=== PATIENT | male | born 1935 | race Caucasian/White ===

== ENCOUNTER → 2016-10-05 | Outpatient (CLI) | payer BC ==
[~2016-10-05] MED LIST: ACET1TAB84 PO; ALLO300T2 PO; ASPI-427 PO; ASPI325T39 PO; ASPIRIN 325 MG PO; BIMA0.01 OPB; CLB/200 PO; DXY100 PO; EZET10TA63 PO; GEMF600T3 PO; GLIP2.5T11 PO; GLIP5TAB11 PO; HYDR-5688 PO; INDA1TAB3 PO; LATA0.009 OPB; LOZOL PO; MISCCAP80 PO; MORPHINE INT SPINAL; PANT1TAB48 PO; POTASSIUM OTC PO; PREG1CAP70 PO; SPIR50TA2 PO; SUCR1TAB PO; SUCR1TAB29 PO; TEST5GEL TOP; ZOLP5TAB PO; pain pump INT SPINAL
[2016-10-05 09:34] LABS: HEMATOCRIT 45.4 % (42-52); MEAN CELL VOLUME 97.8 fL (80-100); MEAN CORPUSCULAR HEMOGLOBIN 32.8 pg (25-34); MEAN CORPUSCULAR HGB CONC 33.5 g/dl (32-36); PLATELET COUNT 151 K/uL (130-400); RED BLOOD COUNT 4.64 M/uL (4.7-6.1); WHITE BLOOD COUNT 11.81 K/uL (4.8-10.8)
[2016-10-05 09:51] LABS: BLOOD UREA NITROGEN 30 mg/dl (7-18); BUN/CREATININE RATIO 23.1 (10-20); CALCIUM 8.6 mg/dl (8.5-10.1); CARBON DIOXIDE 25 mmol/L (21-32); CHLORIDE 109 mmol/L (98-107); GLUCOSE 156 mg/dl (70-99); SODIUM 143 mmol/L (136-145)
[2016-10-05 10:05] LABS: ESTIMATED AVERAGE GLUCOSE 154 mg/dl; HA1C FLAG Normal (Normal)
[2016-10-05 10:52] LABS: BASO % 0.9 %; BASO ABS # 0.11 K/uL (0-0.2); COMPLETE YES; EOS % 4.5 %; IG% 0.5 %; LYMPH % 54.3 %; LYMPH ABS # 6.41 K/uL (1.2-3.4); NEUT % 35.8 %; SMUDGE CELLS PRESENT
== END | disposition home or self-care (01) ==
LOC: C.LAB1850 08:34
PROVIDERS: ATTEND Internal Medicine
DX: E11.9 Type 2 diabetes mellitus without complications (principal)

== ENCOUNTER → 2016-11-12 | Outpatient (CLI) | payer BC | END | disposition home or self-care (01) | LOC: C.RDSM 16:26 | PROVIDERS: ATTEND Physical Medicine & Rehabilitation Sports Medicine | DX: M25.561 Pain in right knee (principal) ==

== ENCOUNTER → 2016-11-16 | Outpatient (CLI) | payer BC ==
[~2016-11-16] MED LIST changes: -BIMA0.01 OPB
--- NOTE | 2016-11-16 13:57 | DIAGNOSTIC IMAGING REPORT ---
CHEST 2 VIEWS ROUTINE CLINICAL HISTORY: R06.02 Shortness of [id number] dyspnea COMPARISON STUDY: 05/04/2016 FINDINGS: Mild cardia megaly status post median sternotomy. Diaphragms smooth. Lungs are clear. IMPRESSION: No acute process. Electronically signed by: Trace Mares M.D. 11/16/2016 1:56 PM Dictated Date/Time: 11/16/2016 1:56 PM
== END | disposition home or self-care (01) ==
LOC: C.RAD1850 13:16
PROVIDERS: ATTEND Internal Medicine
DX: R06.02 Shortness of breath (principal)

== ENCOUNTER → 2016-12-10 | Outpatient (CLI) | payer BC ==
[~2016-12-10] MED LIST changes: -ASPI325T39 PO
[2016-12-10 09:33] LABS: MEAN CELL VOLUME 101.6 fL (80-100); MEAN CORPUSCULAR HEMOGLOBIN 34.2 pg (25-34); MEAN CORPUSCULAR HGB CONC 33.6 g/dl (32-36); MEAN PLATELET VOLUME 12.2 fL (7.4-10.4); PLATELET COUNT 141 K/uL (130-400); RED BLOOD COUNT 4.33 M/uL (4.7-6.1); WHITE BLOOD COUNT 11.68 K/uL (4.8-10.8)
[2016-12-10 11:36] LABS: EOSINOPHIL % 5.2 %; LYMPH ABS # 4.58 K/uL (1.2-3.4); LYMPHOCYTE % 39.2 %; SMUDGE CELLS PRESENT; VARIANT LYM ABS # 2.44 K/uL; VARIANT LYMPHOCYTE % 20.9 %
[2016-12-10 13:46] LABS: COMPLETE YES
== END | disposition home or self-care (01) ==
LOC: C.LAB1850 08:30
PROVIDERS: ATTEND Internal Medicine Endocrinology, Diabetes & Metabolism
DX: Z00.00 Encounter for general adult medical examination without abnormal findings (principal); I10 Essential (primary) hypertension; E29.1 Testicular hypofunction; E11.9 Type 2 diabetes mellitus without complications

== ENCOUNTER → 2016-12-20 | Outpatient (CLI) | payer BC ==
[~2016-12-20] MED LIST changes: -LOZOL PO
[2016-12-20 09:45] LABS: HEMATOCRIT 43.9 % (42-52); MEAN CELL VOLUME 99.1 fL (80-100); MEAN CORPUSCULAR HEMOGLOBIN 33.4 pg (25-34); MEAN CORPUSCULAR HGB CONC 33.7 g/dl (32-36); MEAN PLATELET VOLUME 11.8 fL (7.4-10.4); PLATELET COUNT 155 K/uL (130-400); RED BLOOD COUNT 4.43 M/uL (4.7-6.1); WHITE BLOOD COUNT 11.46 K/uL (4.8-10.8)
[2016-12-20 09:54] LABS: ALT/SGPT 31 U/L (12-78); AST/SGOT 21 U/L (15-37); BLOOD UREA NITROGEN 24 mg/dl (7-18); BUN/CREATININE RATIO 21.5 (10-20); CALCIUM 8.7 mg/dl (8.5-10.1); CARBON DIOXIDE 24 mmol/L (21-32); CHLORIDE 107 mmol/L (98-107); CHOLESTEROL 160 mg/dl (0-200); GLUCOSE 144 mg/dl (70-99); SODIUM 139 mmol/L (136-145); URIC ACID 4.4 mg/dl (2.6-7.2)
[2016-12-20 10:04] LABS: HDL CHOLESTEROL 32 mg/dl; LDL CHOLESTEROL CALCULATED 87 mg/dl; TRIGLYCERIDES 206 mg/dl (0-150); VERY LOW DENSITY LIPOPROT CALC 41 mg/dl
[2016-12-20 13:46] LABS: COMPLETE YES; SMUDGE CELLS PRESENT
[2016-12-20 13:50] LABS: ESTIMATED AVERAGE GLUCOSE 169 mg/dl; HA1C FLAG Normal (Normal)
== END | disposition home or self-care (01) ==
LOC: C.LAB1850 08:14
PROVIDERS: ATTEND Internal Medicine
DX: E11.9 Type 2 diabetes mellitus without complications (principal)

== ENCOUNTER 2017-01-04 06:08 | Emergency (ER) | payer BC ==
[~2017-01-04] VITALS: Ht 165.1 cm; Wt 108.0 kg
[~2017-01-04 06:08] MED LIST changes: -ACET1TAB84 PO; -ASPI-427 PO; -DXY100 PO; -GLIP2.5T11 PO; -HYDR-5688 PO; -MISCCAP80 PO; -POTASSIUM OTC PO; -SUCR1TAB PO; -SUCR1TAB29 PO; -pain pump INT SPINAL
[2017-01-04 06:10] VITALS: TEMP 36.8; Ht 165.1 cm; Wt 108.0 kg
[2017-01-04 06:26] VITALS: O2SAT 94
[2017-01-04 06:37] LABS: HEMATOCRIT 45.4 % (42-52); MEAN CORPUSCULAR HEMOGLOBIN 33.3 pg (25-34); MEAN CORPUSCULAR HGB CONC 33.3 g/dl (32-36); MEAN PLATELET VOLUME 11.4 fL (7.4-10.4); PLATELET COUNT 156 K/uL (130-400); RED BLOOD COUNT 4.54 M/uL (4.7-6.1); WHITE BLOOD COUNT 11.34 K/uL (4.8-10.8)
[2017-01-04] MEDS ORDERED: ASPI-427 PO (06:49)
[2017-01-04] MEDS ORDERED: HYDR-5688 PO (06:51)
[2017-01-04 06:59] LABS: BUN/CREATININE RATIO 18.1 (10-20); CALCIUM 8.5 mg/dl (8.5-10.1); CREATININE 1.2 mg/dl (0.60-1.40)
[2017-01-04] MEDS ORDERED: pain pump INT SPINAL (07:02)
[2017-01-04 07:04] LABS: CKMB/CK RATIO 1.3 (0-3.0)
--- NOTE | 2017-01-04 07:38 | DIAGNOSTIC IMAGING REPORT ---
CHEST ONE VIEW PORTABLE HISTORY: Short of breath. COMPARISON: Chest 11/16/2016. FINDINGS: Elevation the right hemidiaphragm. Poststernotomy changes. The heart is mildly enlarged. No pleural effusions. No pneumothorax. The lungs are clear. IMPRESSION: 1. Mild enlargement of the cardiac silhouette. 2. Elevation of the right hemidiaphragm. Electronically signed by: Patricio Arredondo M.D. 01/04/2017 7:36 AM Dictated Date/Time: 01/04/2017 7:35 AM
[2017-01-04 07:42] LABS: BASO % 0.8 %; BASO ABS # 0.09 K/uL (0-0.2); COMPLETE YES; IG% 0.6 %; LYMPH % 48.6 %; LYMPH ABS # 5.51 K/uL (1.2-3.4); MONO % 4.9 %; NEUT % 41.1 %; SMUDGE CELLS PRESENT
--- NOTE | 2017-01-04 07:50 | DIAGNOSTIC IMAGING REPORT ---
CHEST CT WITHOUT CONTRAST CT DOSE: 700.55 mGycm HISTORY: Short of breath. TECHNIQUE: Multiaxial CT images of the chest were performed without contrast. COMPARISON: Chest CT 10/21/2015. FINDINGS: The central airways are patent. No pleural effusions. No pneumothorax. The left lung is clear. Groundglass densities within the right lower lobe posteriorly favor mild dependent change/atelectasis. Otherwise, no focal lung consolidations to suggest pneumonia. Poststernotomy changes. There is an intrathecal catheter terminating at the T11 level. No acute fractures within the visualized osseous structures. Bilateral renal hypodense lesions are only partially visualized on this study. These are incompletely characterized on this noncontrast study but favor cysts. There is a 1 cm gallstone. Hepatic steatosis. The spleen and adrenal glands are unremarkable. No mediastinal or hilar lymphadenopathy. Mild bilateral gynecomastia. IMPRESSION: 1. Groundglass densities within the right lower lobe posteriorly favor mild dependent change/atelectasis. Otherwise, no focal lung consolidations to suggest pneumonia. 2. Cholelithiasis. Electronically signed by: Patricio Arredondo M.D. 01/04/2017 7:48 AM Dictated Date/Time: 01/04/2017 7:42 AM
--- NOTE | 2017-01-04 08:10 | DIAGNOSTIC IMAGING REPORT ---
BILATERAL LOWER EXTREMITY VENOUS DOPPLER HISTORY: lower leg pain COMPARISON STUDY: None. FINDINGS: There is normal compressibility, flow, and augmentation within the bilateral lower extremity deep venous systems. IMPRESSION: No DVT within the right or left lower extremity. Electronically signed by: Patricio Arredondo M.D. 01/04/2017 8:08 AM Dictated Date/Time: 01/04/2017 8:07 AM
[2017-01-04 11:45] LABS: MANUAL MICROSCOPIC REQUIRED? NO; REVIEW REQ? NO; URINE APPEARANCE CLEAR (CLEAR); URINE BILIRUBIN NEG (NEG); URINE COLOR YELLOW; URINE NITRITE NEG (NEG); URINE SPECIFIC GRAVITY 1.014 (1.000-1.030); UROBILINOGEN NEG (NEG); ZZUR CULT IF INDIC CLEAN CATCH NO
--- NOTE | 2017-01-04 12:35 | DIAGNOSTIC IMAGING REPORT ---
NUCLEAR MEDICINE VENTILATION/PERFUSION SCAN CLINICAL HISTORY: Chest pain. Dyspnea. COMPARISON: None TECHNIQUE: For the ventilation portion of this exam, 32 mCi of DTPA was inhaled at 7:30 AM. Immediately following inhalation, imaging of the chest was carried out in the anterior, posterior, left lateral, right lateral, LPO, RPO, [place] and [place] projections. For the perfusion portion of exam, 5 mCi of technetium 99m MAA was injected IV at 7:35 AM. Immediately following injection, imaging of the chest was carried out in the same projections. FINDINGS: Ventilation/perfusion images show generally uniform activity characteristics on both ventilation and perfusion components of the study. No significant ventilation/perfusion minutes IMPRESSION: Normal study Electronically signed by: Trace Mares M.D. 01/04/2017 12:33 PM Dictated Date/Time: 01/04/2017 12:31 PM
[2017-01-04 14:36] VITALS: BP 122/80; PULSE 67; O2SAT 93
--- NOTE | 2017-01-04 16:11 | EMERGENCY ROOM VISIT NOTE ---
History Report prepared by Sumanth: Tao Arteaga Under the Supervision of: Dr. Edwin Vaughan M.D. First contact with patient: 06:36 Chief Complaint: RESPIRATORY PROBLEMS Stated Complaint: HARD TO BREATH Nursing Triage Summary: Pt awoke at 0230 and pt noticed he had to take more frequent deep breaths and stayed awake until 0500 due to the change in breathing. Pt's decided to bring pt to ED. Per pt's , this has been happening for 6 months and they have been following up closely with PCP. reports in the last six weeks they have done numerous tests including chest x-ray, holter monitor, blood work, and ambulatory pulse ox. Pt placed on lasix for 10 days and reports "that didn't work out so well. He got very weak". Pt also had episodes of hypotension , which pt's PCP adjusted blood pressure medications and hypotension has since subsided. Per , nothing has been found to be causing these periods of SOB. Hx of pain pump that deposits morphine and buvivicain, and clonidine directly onto spine. Pt has been working with pain management clinic closely for years due to chronic back pain. History of Present Illness The patient is an 81 year old male who presents to the Emergency Room with complaints of worsening shortness of breath starting around 0300 this morning. The patient states that he has been having shortness of breath for the past six months, however this morning it was worse than usual. The patient, however, states that while he is laying here he feels fine. He states that he has a history of bypass surgery, and he has some back issues which hinder him from having a stress test. He states that he was given a breathing test about six weeks ago, and he got a 91 on his oxygen and he was able to walk with a walker for six minutes. The patient states that his legs hurt due to neuropathy, and he has difficulty walking. He denies taking any blood thinners other than aspirin, and he takes Celebrex. The patient denies any recent long travels. Pt denies LOC, headache, fevers, chills, diaphoresis, visual changes, neck pain, chest pain, nausea, vomiting, abdominal pain, back pain, melena, hematochezia, urinary symptoms, numbness, weakness, lymphadenopathy, rash, or other complaints. Source of History: patient Onset: 0300 this morning Position: other (global) Quality: other (shortness of breath) Timing: worsening Note: Associated symptoms: Leg pain Review of Systems See HPI for pertinent positives and negatives. A total of ten systems were reviewed and were otherwise negative. Past Medical & Surgical Medical Problems: (1) CAD (coronary artery disease) (2) Hyperlipidemia (3) Hypertension (4) Itraspinal trial for post laminectomy syndrome (5) Osteoarthritis Family History No significant family history Social History Smoking Status: Never Smoker Drug Use: none Marital Status: Housing Status: lives with significant other Occupation Status: employed Current/Historical Medications Scheduled Allopurinol (Zyloprim), 300 MG PO DAILY Aspirin (Ecotrin Regular Strength), 325 MG PO DAILY Celecoxib (CeleBREX), 200 MG PO QAM Ezetimibe (Zetia), 10 MG PO QPM Gemfibrozil (Lopid), 600 MG PO DAILY Glipizide (Glucotrol), 0.5 TAB PO DAILY Indapamide (Lozol), 2.5 MG PO QAM Latanoprost (Xalatan 0.005% Oph [place]), 1 DROPS OP HS Pantoprazole (Protonix), 40 MG PO NOON Pregabalin (Lyrica), 150 MG PO TID Spironolactone (Aldactone), 50 MG PO QAM Testosterone (Androgel Pump), 40.5 MG TOP DAILY [pain pump], INT SPINAL CONTINOUS Scheduled PRN Hydrocodone/Acetaminophen 5MG/325MG (Whick 5MG/325MG), 1 TABLET PO UD PRN for Pain Zolpidem Tartrate (Ambien), 5 MG PO HS PRN for Sleep Allergies Coded Allergies: Hydrochlorothiazide (Verified Allergy, Severe, Hives, 01/04/17) Iodinated Diagnostic Agents (Verified Allergy, Severe, Convulsions, ) Adhesives (Verified Allergy, Intermediate, RASH;PULLS SKIN OFF, 01/04/17) Nifedipine (Verified Allergy, Intermediate, Sick to stomach, 01/04/17) Levofloxacin (Verified Allergy, Mild, HIVES, 01/04/17) itching NSAIDs (Verified Allergy, Mild, Elevated BP, 01/04/17) Cephalosporins (Verified Adverse Reaction, Intermediate, nausea after repeated dose, 01/04/17) Atorvastatin (Verified Adverse Reaction, Unknown, 01/04/17) Physical Exam Vital Signs Date Time Temp Pulse Resp B/P Pulse Ox O2 Delivery O2 Flow Rate FiO2 01/04/17 14:36 67 16 122/80 93 01/04/17 13:27 72 18 126/81 93 Room Air 01/04/17 11:08 83 20 135/78 92 Room Air 01/04/17 09:17 94 18 159/91 94 Room Air 01/04/17 07:18 66 18 143/85 95 Room Air 01/04/17 06:27 93 Room Air 01/04/17 06:27 82 01/04/17 06:26 94 Room Air 01/04/17 06:10 36.8 85 18 128/88 91 Room Air Physical Exam GENERAL: Awake, alert, well-appearing, in no distress HENT: Normocephalic, atraumatic. Oropharynx unremarkable. EYES: Normal conjunctiva. Sclera non-icteric. NECK: Supple. No nuchal rigidity. FROM. No JVD. RESPIRATORY: Clear to auscultation. CARDIAC: Regular rate, normal rhythm. Extremities warm and well perfused. Pulses equal. ABDOMEN: Soft, non-distended. No tenderness to palpation. No rebound or guarding. No masses. RECTAL: Deferred. MUSCULOSKELETAL: Chest examination reveals no tenderness. LOWER EXTREMITIES: Calves are equal size bilaterally and non-tender. 1+ lower extremity edema. No discoloration. NEURO: Normal sensorium. No sensory or motor deficits noted. SKIN: No rash or jaundice noted. Medical Decision & Procedures ER Provider Diagnostic Interpretation: X ray results as stated below per my interpretation and radiologist interpretation. Other radiology results as stated below per my review and radiologist interpretation CHEST ONE VIEW PORTABLE HISTORY: Short of breath. COMPARISON: Chest 11/16/2016. FINDINGS: Elevation the right hemidiaphragm. Poststernotomy changes. The heart is mildly enlarged. No pleural effusions. No pneumothorax. The lungs are clear. IMPRESSION: 1. Mild enlargement of the cardiac silhouette. 2. Elevation of the right hemidiaphragm. Electronically signed by: Patricio Arredondo M.D. 01/04/2017 7:36 AM Dictated Date/Time: 01/04/2017 7:[address] WITHOUT CONTRAST CT DOSE: 700.55 mGycm HISTORY: Short of breath. TECHNIQUE: Multiaxial CT images of the chest were performed without contrast. COMPARISON: Chest CT 10/21/2015. FINDINGS: The central airways are patent. No pleural effusions. No pneumothorax. The left lung is clear. Groundglass densities within the right lower lobe posteriorly favor mild dependent change/atelectasis. Otherwise, no focal lung consolidations to suggest pneumonia. Poststernotomy changes. There is an intrathecal catheter terminating at the T11 level. No acute fractures within the visualized osseous structures. Bilateral renal hypodense lesions are only partially visualized on this study. These are incompletely characterized on this noncontrast study but favor cysts. There is a 1 cm gallstone. Hepatic steatosis. The spleen and adrenal glands are unremarkable. No mediastinal or hilar lymphadenopathy. Mild bilateral gynecomastia. IMPRESSION: 1. Groundglass densities within the right lower lobe posteriorly favor mild dependent change/atelectasis. Otherwise, no focal lung consolidations to suggest pneumonia. 2. Cholelithiasis. Electronically signed by: Patricio Arredondo M.D. 01/04/2017 7:48 AM Dictated Date/Time: 01/04/2017 7:42 AM BILATERAL LOWER EXTREMITY VENOUS DOPPLER HISTORY: lower leg pain COMPARISON STUDY: None. FINDINGS: There is normal compressibility, flow, and augmentation within the bilateral lower extremity deep venous systems. IMPRESSION: No DVT within the right or left lower extremity. Electronically signed by: Patricio Arredondo M.D. 01/04/2017 8:08 AM Dictated Date/Time: 01/04/2017 8:07 AM NUCLEAR MEDICINE VENTILATION/PERFUSION SCAN CLINICAL HISTORY: Chest pain. Dyspnea. COMPARISON: None TECHNIQUE: For the ventilation portion of this exam, 32 mCi of DTPA was inhaled at 7:30 AM. Immediately following inhalation, imaging of the chest was carried out in the anterior, posterior, left lateral, right lateral, LPO, RPO, [place] and [place] projections. For the perfusion portion of exam, 5 mCi of technetium 99m MAA was injected IV at 7:35 AM. Immediately following injection, imaging of the chest was carried out in the same projections. FINDINGS: Ventilation/perfusion images show generally uniform activity characteristics on both ventilation and perfusion components of the study. No significant ventilation/perfusion minutes IMPRESSION: Normal study Electronically signed by: Trace Mares M.D. 01/04/2017 12:33 PM Dictated Date/Time: 01/04/2017 12:31 PM Laboratory Results 01/04/17 06:25 Red Blood Count 4.54, Mean Corpuscular Volume 100.0, Mean Corpuscular Hemoglobin 33.3, Mean Corpuscular Hemoglobin Concent 33.3, Mean Platelet Volume 11.4, Neutrophils (%) (Auto) 41.1, Lymphocytes (%) (Auto) 48.6, Monocytes (%) ( Auto) 4.9, Eosinophils (%) (Auto) 4.0, Basophils (%) (Auto) 0.8, Neutrophils # ( Auto) 4.67, Lymphocytes # (Auto) 5.51, Monocytes # (Auto) 0.55, Eosinophils # ( Auto) 0.45, Basophils # (Auto) 0.09 01/04/17 06:25 Test 01/04/17 06:25 01/04/17 06:38 01/04/17 11:11 White Blood Count 11.34 K/uL (4.8-10.8) Red Blood Count 4.54 M/uL (4.7-6.1) Hemoglobin 15.1 g/dL (14.0-18.0) Hematocrit 45.4 % (42-52) Mean Corpuscular Volume 100.0 fL (80-100) Mean Corpuscular Hemoglobin 33.3 pg (25-34) Mean Corpuscular Hemoglobin Concent 33.3 g/dl (32-36) Platelet Count 156 K/uL (130-400) Mean Platelet Volume 11.4 fL (7.4-10.4) Neutrophils (%) (Auto) 41.1 % Lymphocytes (%) (Auto) 48.6 % Monocytes (%) (Auto) 4.9 % Eosinophils (%) (Auto) 4.0 % Basophils (%) (Auto) 0.8 % Neutrophils # (Auto) 4.67 K/uL (1.4-6.5) Lymphocytes # (Auto) 5.51 K/uL (1.2-3.4) Monocytes # (Auto) 0.55 K/uL (0.11-0.59) Eosinophils # (Auto) 0.45 K/uL (0-0.5) Basophils # (Auto) 0.09 K/uL (0-0.2) RDW Standard Deviation 48.5 fL (36.4-46.3) RDW Coefficient of Variation 13.3 % (11.5-14.5) Immature Granulocyte % (Auto) 0.6 % Immature Granulocyte # (Auto) 0.07 K/uL (0.00-0.02) Smudge Cells PRESENT Anion Gap 9.0 mmol/L (3-11) Est Creatinine Clear Calc Drug Dose 54.7 ml/min Estimated GFR () 65.3 Estimated GFR (Non- 56.4 BUN/Creatinine Ratio 18.1 (10-20) Calcium Level 8.5 mg/dl (8.5-10.1) Total Bilirubin 0.5 mg/dl (0.2-1) Direct Bilirubin 0.1 mg/dl (0-0.2) Aspartate Amino Transf (AST/SGOT) 17 U/L (15-37) Alanine Aminotransferase (ALT/SGPT) 26 U/L (12-78) Alkaline Phosphatase 67 U/L (45-117) Total Creatine Kinase 88 U/L (39-308) Creatine Kinase MB 1.1 ng/ml (0.5-3.6) Creatine Kinase MB Ratio 1.3 (0-3.0) Pro-B-Type Natriuretic Peptide 124 pg/ml (0-1800) Total Protein 6.9 gm/dl (6.4-8.2) Albumin 3.8 gm/dl (3.4-5.0) Bedside D-Dimer > 450 ng/mlFEU (0-450) Bedside Troponin I 0.000 ng/ml (0-0.045) Urine Color YELLOW Urine Appearance CLEAR (CLEAR) Urine pH 6.0 (4.5-7.5) Urine Specific [place] 1.014 (1.000-1.030) Urine Protein NEG (NEG) Urine Glucose (UA) NEG (NEG) Urine Ketones NEG (NEG) Urine Occult Blood NEG (NEG) Urine Nitrite NEG (NEG) Urine Bilirubin NEG (NEG) Urine Urobilinogen NEG (NEG) Urine Leukocyte Esterase NEG (NEG) Laboratory results reviewed by me ECG Indication: SOB/dyspnea Rate (beats per minute): 73 Rhythm: sinus rhythm Findings: 1st degree AV block, Q waves (Inferior), other (Poor R wave progression anteriorly, RSR' pattern in V2, normal intervals) ED Course 0648: The patient was evaluated in room A9. A complete history and physical exam was performed. 0955: I reevaluated the patient, and he was doing well. 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 The patient is going to get a VQ scan at 1130. 1335: I reevaluated the patient, and he feels comfortable. He states that he wants to go home, and he will follow up as an outpatient. Discussed results and discharge instructions: He verbalized understanding and agreement. The patient is ready for discharge. Medical Decision Triage Nursing notes reviewed. The patient's presentation and history were concerning for periodic breathing issues. Etiologies such as pneumonia, COPD, reactive airway disease, CHF, cardiac ischemia, pulmonary embolism, pneumothorax, musculoskeletal, infections, gastrointestinal, as well as others were entertained. The patient was evaluated. Clinically he looked well. He was asymptomatic. He had a few episodes in the department her very short-lived. These did not correlate with any monitoring abnormalities. He has a slight leukocytosis on CBC but this is chronic for him. The patient's chem strip panel, LFTs, BMP, troponin and ultrasound of the lower extremities were unremarkable. The patient has some atelectatic change on the right lower lobe however he notes no symptoms to suggest an pneumonia or infectious process. He has no cough. The patient did have an elevated d-dimer. He underwent V/Q scanning as he has had a severe reaction to IVP dye in the past. This was normal. Clinically the patient feels well. I did try to contact his primary physician but he was out of the office today. I believe the patient needs to follow up closely. He has had symptoms for many months. If he worsens he will come back to the emergency department.I gave my usual and customary discussion regarding this issue. By the evaluation outlined above other emergent etiologies such as those listed in the differential, as well as others, were deemed relatively unlikely. The patient and family were informed about the findings as listed above. All questions were answered and they were pleased with the treatment. Return instructions were outlined and the patient was discharged in stable condition. The patient was referred to his PCP for follow-up Saturday for a recheck of the current condition. The chart was completed utilizing [employer] voice recognition software. Grammatical errors, random word insertions, pronoun errors, and incomplete sentences are an occasional consequence of this system due to software limitations, ambient noise, and hardware issues. Any formal questions or concerns about the content, text, or information contained within the body of this dictation should be directly addressed to the physician for clarification. Impression Primary Impression: Shortness of breath Scribe Attestation The scribe's documentation has been prepared under my direction and personally reviewed by me in its entirety. I confirm that the note above accurately reflects all work, treatment, procedures, and medical decision making performed by me. Departure Information Dispostion Home / Self-Care Referrals Miles Neil M.D. (PCP) Forms HOME CARE DOCUMENTATION FORM, IMPORTANT VISIT INFORMATION, WORK / SCHOOL INSTRUCTIONS Patient Instructions My [facility] Additional Instructions Continue current medications. Follow-up with Dr. Neil on Saturday. Discuss consultation with pain management. Return to the ER for passing out, chest pain, difficulty breathing, fevers, vomiting, worsening of your condition, or as needed.
[2017-02-11] MEDS ORDERED: SUCR1TAB PO (12:48)
[2017-02-11] MEDS ORDERED: DXY100 PO (12:48)
[2017-03-11] MEDS ORDERED: GLIP2.5T11 PO (08:37)
[2017-04-11] MEDS ORDERED: SUCR1TAB29 PO (10:02)
[2017-06-12] MEDS ORDERED: MISCCAP80 PO (09:39)
[2017-06-12] MEDS ORDERED: POTASSIUM OTC PO (09:40)
[2017-06-12] MEDS ORDERED: ACET1TAB84 PO (09:40)
== END 2017-01-04 14:37 | disposition home or self-care (01) ==
LOC: C.EDB 06:10 → C.EDA 14:37
DX: R06.02 Shortness of breath (principal); I25.10 Atherosclerotic heart disease of native coronary artery without angina pectoris; I10 Essential (primary) hypertension; E78.5 Hyperlipidemia, unspecified; M19.90 Unspecified osteoarthritis, unspecified site; M96.1 Postlaminectomy syndrome, not elsewhere classified; Z79.82 Long term (current) use of aspirin; Z79.899 Other long term (current) drug therapy; Z97.8 Presence of other specified devices

== ENCOUNTER → 2017-01-25 | Outpatient (CLI) | payer BC ==
[~2017-01-25] MED LIST changes: +ACET1TAB84 PO; +ASPI-427 PO; -ASPIRIN 325 MG PO; +DXY100 PO; +GLIP2.5T11 PO; +HYDR-5688 PO; +MISCCAP80 PO; -MORPHINE INT SPINAL; +POTASSIUM OTC PO; +SUCR1TAB PO; +SUCR1TAB29 PO; +pain pump INT SPINAL
[2017-01-25 15:00] LABS: AMYLASE 66 U/L (25-115)
== END | disposition home or self-care (01) ==
LOC: C.LAB1850 13:40
PROVIDERS: ATTEND Physician Assistant
DX: R10.9 Unspecified abdominal pain (principal)

== ENCOUNTER → 2017-01-26 | Outpatient (CLI) | payer BC | END | disposition home or self-care (01) | LOC: C.LABSPEC 15:40 | PROVIDERS: ATTEND Physician Assistant | DX: R10.9 Unspecified abdominal pain (principal) ==

== ENCOUNTER 2017-02-08 09:49 | Inpatient (IN) | payer BC, OTHER ==
[~2017-02-08] VITALS: Ht 165.1 cm; Wt 104.5 kg
[~2017-02-08 09:49] MED LIST changes: -ACET1TAB84 PO; -DXY100 PO; -GLIP2.5T11 PO; -MISCCAP80 PO; -POTASSIUM OTC PO; -SUCR1TAB PO; -SUCR1TAB29 PO
[2017-02-08 09:52] VITALS: Ht 165.1 cm; Wt 104.5 kg
--- NOTE | 2017-02-08 10:17 | EMERGENCY ROOM VISIT NOTE ---
History Report prepared by Sumanth: Micky Clement Under the Supervision of: Dr. Hermes Spain M.D. First contact with patient: 10:00 Chief Complaint: SWELLING TO EXTREMITY Stated Complaint: L FT SWELLING, REDNESS, DIABETIC ?CELLUTITIS/SEPSI History of Present Illness The patient is an 81 year old male who presents to the Emergency Room with complaints of persistent left foot and ankle swelling that started last night. Per the patient's , the patient's left foot was reconstructed 7 years ago, and had not had any problems. The patient saw Dr. Lyon of podiatry 2 and a half months ago, and although the patient had a callus on his left foot, Dr. Lyon gave the patient a clean bill of health regarding the foot. Starting last night, the patient's noticed that the patient's left foot and ankle were even more swollen than they are now, and there was a lot of redness. There is also an ulcer on his left foot. The patient has neuropathy in both feet and legs, so he could not feel anything. The patient denies any foot or ankle pain. The patient talked to Dr. Lyon this morning, and then talked to his primary care physician's office (Dr. Neil). Dr. Neil's office recommended that the patient come here for antibiotics. The patient's notes that the patient has been wearing custom orthotics for the past 2 and a half months. The patient adds that he has been having an upset stomach for the past few months, but he is able to eat okay. He denies any nausea or urinary symptoms. The patient has had multiple tests, including with his stools, that have all came back negative. He also has a small hernia that is currently being watched. He has a history of bypass surgery. Source of History: patient, spouse/significant other Onset: Last night Position: ankle (left), foot (left) Quality: other (swelling, redness, ulcers) Timing: other (persistent) Associated Symptoms: No nausea, No urinary symptoms Note: Associated symptoms: Denies foot or ankle pain. Says he has been having an upset stomach for a couple months. Review of Systems All systems have been listed, reviewed, and are negative other than those previously mentioned. Please see Additional Medical History Sheet. Past Medical & Surgical Medical Problems: (1) CAD (coronary artery disease) (2) Cellulitis and abscess of foot excluding toe (3) Hyperlipidemia (4) Hypertension (5) Itraspinal trial for post laminectomy syndrome (6) Osteoarthritis Family History No significant family history Social History Smoking Status: Never Smoker Drug Use: none Marital Status: Housing Status: lives with significant other Occupation Status: employed Current/Historical Medications Scheduled Allopurinol (Zyloprim), 300 MG PO DAILY Aspirin (Ecotrin Regular Strength), 325 MG PO DAILY Celecoxib (CeleBREX), 200 MG PO QAM Ezetimibe (Zetia), 10 MG PO QPM Gemfibrozil (Lopid), 600 MG PO DAILY Glipizide (Glucotrol), 0.5 TAB PO DAILY Indapamide (Lozol), 2.5 MG PO QAM Latanoprost (Xalatan 0.005% Oph [place]), 1 DROPS OP HS Pantoprazole (Protonix), 40 MG PO NOON Pregabalin (Lyrica), 150 MG PO TID Spironolactone (Aldactone), 50 MG PO QAM Testosterone (Androgel Pump), 40.5 MG TOP DAILY [pain pump], INT SPINAL CONTINOUS Scheduled PRN Hydrocodone/Acetaminophen 5MG/325MG ([place] 5MG/325MG), 1 TABLET PO UD PRN for Pain Zolpidem Tartrate (Ambien), 5 MG PO HS PRN for Sleep Allergies Coded Allergies: Hydrochlorothiazide (Verified Allergy, Severe, Hives, 02/08/17) Iodinated Diagnostic Agents (Verified Allergy, Severe, Convulsions, ) Adhesives (Verified Allergy, Intermediate, RASH;PULLS SKIN OFF, 02/08/17) Nifedipine (Verified Allergy, Intermediate, Sick to stomach, 02/08/17) Levofloxacin (Verified Allergy, Mild, HIVES, 02/08/17) itching NSAIDs (Verified Allergy, Mild, Elevated BP, 02/08/17) Cephalosporins (Verified Adverse Reaction, Intermediate, nausea after repeated dose, 02/08/17) Atorvastatin (Verified Adverse Reaction, Unknown, 02/08/17) Physical Exam Vital Signs Date Time Temp Pulse Resp B/P Pulse Ox O2 Delivery O2 Flow Rate FiO2 02/08/17 14:29 70 20 131/83 93 Room Air 02/08/17 14:25 Room Air 02/08/17 13:20 67 16 121/75 93 Room Air 02/08/17 11:38 70 16 122/78 93 Room Air 02/08/17 09:52 36.7 86 18 120/81 94 Room Air Physical Exam GENERAL: Patient awake, alert, oriented x 3. Patient follows commands. Patient does not appear toxic. Patient is adequately hydrated and well- nourished. SKIN: No erythema, pallor, cyanosis or rash HEENT: Normal head, pupils equal, reactive to light and accommodation. LUNGS: Clear to auscultation. No wheezes, no rales, no rhonchi. HEART: No murmurs. No gallops. No rubs ABDOMEN: Mid-abdominal scar, well-healed. Obese, soft, nontender. No masses, no rebound, no hepatomegaly or splenomegaly. EXTREMITIES: Quarter-sized blister on sole of foot with erythema proximal to left second and third toes, both on volar and plantar aspect. A ring of erythema just above ankle, but no extension up into the thigh. No inguinal adenopathy. NEUROLOGIC: Cranial nerves II-XII within normal limits. No gross motor sensory function deficits. Medical Decision & Procedures ER Provider Diagnostic Interpretation: X ray results are stated below per my interpretation and the radiologist's interpretation. LEFT FOOT MIN 3 VIEWS ROUTINE CLINICAL HISTORY: Cellulitis. Possible osteomyelitis. COMPARISON: None. DISCUSSION: No acute fractures are visualized. There are postsurgical changes present within the midfoot. The patient appears to be status post arthrodesis with a medial metallic plate traversing the first tarsal metatarsal joint. Transverse screws traverse the bases of the first second and third metatarsals as well as the medial and middle cuneiforms. There is also a screw traversing the navicular medial cuneiform joint. The distalmost transverse screw is fractured. There is also a screw present traversing third tarsometatarsal joint. There are no bony destructive changes to indicate osteomyelitis. Degenerative changes are present the level the first metatarsal phalangeal joint. There is soft tissue staple at the level of the medial aspect of the distal tibia. IMPRESSION: 1. Postsurgical and degenerative change. Fracture of one of the transverse screws. 2. No conventional radiographic evidence of osteomyelitis Electronically signed by: Juan Jose Atkins M.D. 02/08/2017 11:39 AM Dictated Date/Time: 02/08/2017 11:36 AM CHEST 2 VIEWS ROUTINE CLINICAL HISTORY: Cellulitis COMPARISON STUDY: 01/04/2017 FINDINGS: The cardiac and mediastinal contours remain stable. There are postsurgical changes of midline sternotomy. There is mild elevation right hemidiaphragm. There is no focal pulmonary consolidation. There is no failure. There are no pleural effusions.[ IMPRESSION: Stable mild elevation right hemidiaphragm. No active disease in the chest. Electronically signed by: Juan Jose Atkins M.D. 02/08/2017 11:36 AM Dictated Date/Time: 02/08/2017 11:36 AM Laboratory Results 02/08/17 10:05 Red Blood Count 4.64, Mean Corpuscular Volume 103.2, Mean Corpuscular Hemoglobin 33.4, Mean Corpuscular Hemoglobin Concent 32.4, Mean Platelet Volume 11.7, Neutrophils (%) (Auto) 51.7, Lymphocytes (%) (Auto) 39.4, Monocytes (%) ( Auto) 5.6, Eosinophils (%) (Auto) 2.0, Basophils (%) (Auto) 0.8, Neutrophils # ( Auto) 6.18, Lymphocytes # (Auto) 4.70, Monocytes # (Auto) 0.67, Eosinophils # ( Auto) 0.24, Basophils # (Auto) 0.09 02/08/17 10:05 Test 02/08/17 10:05 02/08/17 11:00 White Blood Count 11.94 K/uL (4.8-10.8) Red Blood Count 4.64 M/uL (4.7-6.1) Hemoglobin 15.5 g/dL (14.0-18.0) Hematocrit 47.9 % (42-52) Mean Corpuscular Volume 103.2 fL (80-100) Mean Corpuscular Hemoglobin 33.4 pg (25-34) Mean Corpuscular Hemoglobin Concent 32.4 g/dl (32-36) Platelet Count 163 K/uL (130-400) Mean Platelet Volume 11.7 fL (7.4-10.4) Neutrophils (%) (Auto) 51.7 % Lymphocytes (%) (Auto) 39.4 % Monocytes (%) (Auto) 5.6 % Eosinophils (%) (Auto) 2.0 % Basophils (%) (Auto) 0.8 % Neutrophils # (Auto) 6.18 K/uL (1.4-6.5) Lymphocytes # (Auto) 4.70 K/uL (1.2-3.4) Monocytes # (Auto) 0.67 K/uL (0.11-0.59) Eosinophils # (Auto) 0.24 K/uL (0-0.5) Basophils # (Auto) 0.09 K/uL (0-0.2) RDW Standard Deviation 49.7 fL (36.4-46.3) RDW Coefficient of Variation 13.5 % (11.5-14.5) Immature Granulocyte % (Auto) 0.5 % Immature Granulocyte # (Auto) 0.06 K/uL (0.00-0.02) Prothrombin Time 10.7 SECONDS (9.0-12.0) Prothromb Time International Ratio 1.0 (0.9-1.1) Activated Partial Thromboplast Time 26.9 SECONDS (21.0-31.0) Partial Thromboplastin Ratio 1.0 Anion Gap 8.0 mmol/L (3-11) Estimated GFR () 65.3 Estimated GFR (Non- 56.4 BUN/Creatinine Ratio 17.6 (10-20) Calcium Level 8.7 mg/dl (8.5-10.1) Total Bilirubin 0.7 mg/dl (0.2-1) Aspartate Amino Transf (AST/SGOT) 14 U/L (15-37) Alanine Aminotransferase (ALT/SGPT) 28 U/L (12-78) Alkaline Phosphatase 77 U/L (45-117) Troponin I < 0.015 ng/ml (0-0.045) Total Protein 7.2 gm/dl (6.4-8.2) Albumin 3.9 gm/dl (3.4-5.0) Globulin 3.3 gm/dl (2.5-4.0) Albumin/Globulin Ratio 1.2 (0.9-2) Lactic Acid Level 1.9 mmol/L (0.4-2.0) Laboratory results as stated above per my review. Medications Administered Medications (Trade) Dose Ordered Sig/Be[place] Route Start Time Stop Time Status Last Admin Dose Admin Ceftriaxone Sodium (Rocephin Inj) 1 gm NOW STAT IV 02/08/17 12:26 02/08/17 12:29 DC 02/08/17 13:01 1 GM Procedure Incision & Drainage Indication: Abscess. Location: Sole of left foot. Verbal consent was obtained after the risks and benefits were explained, including but not limited to bleeding, scarring, infection, pain, and bone/joint /nerve damage. At this time, the risks of the procedure are less than the risks of NOT performing the procedure. A time out was taken and the correct patient and site identified. The skin was prepped with betadine and a sterile field set. The abscess cavity was entered with a number 11 blade and small amount of blood and puss material expressed. The wound was explored for foreign bodies and none found. Debridement was not performed. Packing placed and a sterile dressing applied. Detailed wound care instructions and signs and symptoms of worsening infection reviewed with the patient. No complications and the patient tolerated the procedure well. ECG Indication: other (swelling) Rate (beats per minute): 71 Rhythm: sinus rhythm Findings: 1st degree AV block, PAC (occasional), no acute ischemic change ED Course 1002: Past medical records reviewed. The patient was evaluated in room A4B. A complete history and physical examination was performed. 1225: I performed an incision and drainage on the patient's foot. The patient verbally expressed understanding and agreement of the treatment plan. The patient will be evaluated for further treatment. 1226: Ordered Rocephin Inj 1 gm IV. 1255: I discussed the patient with Dr. Merrill DUARTE marketing intern - he will evaluate the patient for further treatment. Medical Decision Nurses notes reviewed. Medical history sheet reviewed. Differential diagnosis includes but is not limited to: cellulitis, osteomyelitis, sepsis, diabetes, abscess. The patient is here with cellulitis of his foot. The patient has diabetes with neuropathy. He has had extensive surgical revision of the same foot with retained screws. The patient has slight elevation of his white count. Cultures from the foot and blood were obtained prior to administration of Rocephin. Most likely additional antibiotics will be added. I discussed care with the patient, his and with Dr. Momin. Consults Time Called: 1250 Consulting Physician: Dr. Merrill DUARTE marketing intern Returned Call: 1255 (in person) I discussed the patient with Dr. Merrill DUARTE marketing intern - he will evaluate the patient for further treatment. Impression Primary Impression: Cellulitis of foot, left Additional Impression: Diabetic nephropathy Scribe Attestation The scribe's documentation has been prepared under my direction and personally reviewed by me in its entirety. I confirm that the note above accurately reflects all work, treatment, procedures, and medical decision making performed by me. Departure Information Dispostion Being Evaluated By Hospitalist Referrals No Doctor, Assigned (PCP) Patient Instructions My [facility] Problem Qualifiers
[2017-02-08 10:44] LABS: BASO % 0.8 %; BASO ABS # 0.09 K/uL (0-0.2); COMPLETE YES; HEMATOCRIT 47.9 % (42-52); IG% 0.5 %; LYMPH % 39.4 %; MEAN CELL VOLUME 103.2 fL (80-100); MEAN CORPUSCULAR HEMOGLOBIN 33.4 pg (25-34); MEAN CORPUSCULAR HGB CONC 32.4 g/dl (32-36); MEAN PLATELET VOLUME 11.7 fL (7.4-10.4); MONO % 5.6 %; NEUT % 51.7 %; PLATELET COUNT 163 K/uL (130-400); RED BLOOD COUNT 4.64 M/uL (4.7-6.1); WHITE BLOOD COUNT 11.94 K/uL (4.8-10.8)
[2017-02-08 11:05] LABS: ALT/SGPT 28 U/L (12-78); AST/SGOT 14 U/L (15-37); BLOOD UREA NITROGEN 21 mg/dl (7-18); BUN/CREATININE RATIO 17.6 (10-20); CALCIUM 8.7 mg/dl (8.5-10.1); CARBON DIOXIDE 29 mmol/L (21-32); CHLORIDE 104 mmol/L (98-107); GLUCOSE 170 mg/dl (70-99); SODIUM 141 mmol/L (136-145)
[2017-02-08 11:10] LABS: ALB/GLOB RATIO 1.2 (0.9-2); ALKALINE PHOSPHATASE 77 U/L (45-117)
--- NOTE | 2017-02-08 11:37 | DIAGNOSTIC IMAGING REPORT ---
CHEST 2 VIEWS ROUTINE CLINICAL HISTORY: Cellulitis COMPARISON STUDY: 01/04/2017 FINDINGS: The cardiac and mediastinal contours remain stable. There are postsurgical changes of midline sternotomy. There is mild elevation right hemidiaphragm. There is no focal pulmonary consolidation. There is no failure. There are no pleural effusions.[ IMPRESSION: Stable mild elevation right hemidiaphragm. No active disease in the chest. Electronically signed by: Juan Jose Atkins M.D. 02/08/2017 11:36 AM Dictated Date/Time: 02/08/2017 11:36 AM
--- NOTE | 2017-02-08 11:40 | DIAGNOSTIC IMAGING REPORT ---
LEFT FOOT MIN 3 VIEWS ROUTINE CLINICAL HISTORY: Cellulitis. Possible osteomyelitis. COMPARISON: None. DISCUSSION: No acute fractures are visualized. There are postsurgical changes present within the midfoot. The patient appears to be status post arthrodesis with a medial metallic plate traversing the first tarsal metatarsal joint. Transverse screws traverse the bases of the first second and third metatarsals as well as the medial and middle cuneiforms. There is also a screw traversing the navicular medial cuneiform joint. The distalmost transverse screw is fractured. There is also a screw present traversing third tarsometatarsal joint. There are no bony destructive changes to indicate osteomyelitis. Degenerative changes are present the level the first metatarsal phalangeal joint. There is soft tissue staple at the level of the medial aspect of the distal tibia. IMPRESSION: 1. Postsurgical and degenerative change. Fracture of one of the transverse screws. 2. No conventional radiographic evidence of osteomyelitis Electronically signed by: Juan Jose Atkins M.D. 02/08/2017 11:39 AM Dictated Date/Time: 02/08/2017 11:36 AM
[2017-02-08] MEDS ORDERED: CEFTRIAXONE SOD INJ 1 GM ADDVIAL IV STA (12:26)
[2017-02-08] MEDS ORDERED: CEFTRIAXONE SOD INJ 1 GM in DEXTROSE 5% ADD-VANTAGE 50ML 50 ML IV SCH (13:00)
[2017-02-08] MEDS ORDERED: ONDANSETRON INJ 2 MG/ML 2 ML VIAL IV PRN (13:15)
[2017-02-08] MEDS ORDERED: ACETAMINOPHEN 325 MG TAB PO PRN (13:15)
[2017-02-08] MEDS ORDERED: MAGNESIUM HYDROXIDE SUSP 30 ML UDC PO PRN (13:15)
[2017-02-08] MEDS ORDERED: ALUMINUM/MAGNESIUM/SIMETH (MAALOX MAX) 30 ML UDC PO PRN (13:15)
[2017-02-08] MEDS ORDERED: VANCOMYCIN INJ 1,000 MG in SODIUM CHLORIDE 0.9% 250ML 250 ML IV SCH (13:30)
--- NOTE | 2017-02-08 13:53 | History and Physical ---
History & Physical Date & Time of Service: February 08, 2017 at 13:16 Chief Complaint: L Ft Swelling, Redness, Diabetic ?Cellutitis/Sepsi Primary Care Physician: Miles Neil M.D. History of Present Illness Source: patient 81 y/o M w/Hx DM, CAD, Chronic back pain, LE neuropathy. History of extensive surgery on his L foot with hardware placement 7 years prior. Pt noted that he developed erythema around his swift and calf. On inspection of his foot, his noted swelling, erythema and exudate on the plantar aspect with erythema extending over his middle toes. He has not had any fever and does not describe pain although he has sensory impairment in his LEs as a result of his diabetes. As an aside, the pt describes a lower abdominal ache which has been present for several months. No etiology has been elucidated thus far. He denies N/V/D. 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 [employer] Smoking Status: Never Smoker Drug Use: none Marital Status: Occupational Status: employed Immunizations History of Influenza Vaccine: Yes Influenza Vaccine Date: Jul 10, 2010 History of Tetanus Vaccine?: No Tetanus Immunization Date: Jan 11, 1998 History of Pneumococcal: Yes Pneumococcal Date: Apr 09, 2007 History of Hepatitis B Vaccine: No Multi-Drug Resistant Organisms History of MDRO: No Allergies Coded Allergies: Hydrochlorothiazide (Verified Allergy, Severe, Hives, 02/08/17) Iodinated Diagnostic Agents (Verified Allergy, Severe, Convulsions, ) Adhesives (Verified Allergy, Intermediate, RASH;PULLS SKIN OFF, 02/08/17) Nifedipine (Verified Allergy, Intermediate, Sick to stomach, 02/08/17) Levofloxacin (Verified Allergy, Mild, HIVES, 02/08/17) itching NSAIDs (Verified Allergy, Mild, Elevated BP, 02/08/17) Cephalosporins (Verified Adverse Reaction, Intermediate, nausea after repeated dose, 02/08/17) Atorvastatin (Verified Adverse Reaction, Unknown, 02/08/17) Home Medications Scheduled Allopurinol (Zyloprim), 300 MG PO DAILY Aspirin (Ecotrin Regular Strength), 325 MG PO DAILY Celecoxib (CeleBREX), 200 MG PO QAM Ezetimibe (Zetia), 10 MG PO QPM Gemfibrozil (Lopid), 600 MG PO DAILY Glipizide (Glucotrol), 0.5 TAB PO DAILY Indapamide (Lozol), 2.5 MG PO QAM Latanoprost (Xalatan 0.005% Oph [place]), 1 DROPS OP HS Pantoprazole (Protonix), 40 MG PO NOON Pregabalin (Lyrica), 150 MG PO TID Spironolactone (Aldactone), 50 MG PO QAM Testosterone (Androgel Pump), 40.5 MG TOP DAILY [pain pump], INT SPINAL CONTINOUS Scheduled PRN Hydrocodone/Acetaminophen 5MG/325MG ([place] 5MG/325MG), 1 TABLET PO UD PRN for Pain Zolpidem Tartrate (Ambien), 5 MG PO HS PRN for Sleep Review of Systems Constitutional: No chills, No fever, No sweats Eyes: No eye pain, No worsening of vision ENT: No hearing loss, No nasal symptoms, No unusual epistaxis Respiratory: No cough, No sputum, No wheezing Cardiovascular: No PND, No chest pain, No orthopnea Abdomen: + pain, No constipation, No diarrhea, No nausea, No vomiting Musculoskeletal: No joint pain, No muscle pain Genitourinary - Male: No dysuria, No hematuria, No urinary frequency, No urinary urgency Neurologic: No memory loss, No paralysis, No weakness Psychiatric: No depression symptoms Endocrine: No fatigue Hematologic / Lymphatic: No abnormal bleeding/bruising Integumentary: + problem reported (Cellulitis as above) Allergic / Immunologic: No environmental allergies Physical Exam Vital Signs Date Time Temp Pulse Resp B/P Pulse Ox O2 Delivery O2 Flow Rate FiO2 02/08/17 11:38 70 16 122/78 93 Room Air 02/08/17 09:52 36.7 86 18 120/81 94 Room Air General Appearance: WD/WN, no apparent distress Head: normocephalic, atraumatic Eyes: normal inspection, PERRL, EOMI ENT: normal ENT inspection, pharynx normal Neck: supple, no JVD Respiratory/Chest: chest non-tender, lungs clear, normal breath sounds, no respiratory distress, no accessory muscle use Cardiovascular: regular rate, rhythm, no edema, no gallop, no JVD, no murmur, normal peripheral pulses Abdomen/GI: normal bowel sounds, non tender, soft Back: normal inspection, no CVA tenderness, no muscle spasm, normal range of motion Extremities/Musculoskelatal: + pertinent finding (Ring of erythema at mid swift/ calf - erythema and possibly an abscess over plantar aspect of L foot - erythema over mid toes and dorsum) Skin: + pertinent finding (Ring of erythema at mid swift/calf - erythema and possibly an abscess over plantar aspect of L foot - erythema over mid toes and dorsum) Diagnostics Laboratory Results Results Past 24 Hours Test 02/08/17 10:05 02/08/17 11:00 Range/Units White Blood Count 11.94 4.8-10.8 K/uL Red Blood Count 4.64 4.7-6.1 M/uL Hemoglobin 15.5 14.0-18.0 g/dL Hematocrit 47.9 42-52 % Mean Corpuscular Volume 103.2 80-100 fL Mean Corpuscular Hemoglobin 33.4 25-34 pg Mean Corpuscular Hemoglobin Concent 32.4 32-36 g/dl Platelet Count 163 130-400 K/uL Mean Platelet Volume 11.7 7.4-10.4 fL Neutrophils (%) (Auto) 51.7 % Lymphocytes (%) (Auto) 39.4 % Monocytes (%) (Auto) 5.6 % Eosinophils (%) (Auto) 2.0 % Basophils (%) (Auto) 0.8 % Neutrophils # (Auto) 6.18 1.4-6.5 K/uL Lymphocytes # (Auto) 4.70 1.2-3.4 K/uL Monocytes # (Auto) 0.67 0.11-0.59 K/uL Eosinophils # (Auto) 0.24 0-0.5 K/uL Basophils # (Auto) 0.09 0-0.2 K/uL RDW Standard Deviation 49.7 36.4-46.3 fL RDW Coefficient of Variation 13.5 11.5-14.5 % Immature Granulocyte % (Auto) 0.5 % Immature Granulocyte # (Auto) 0.06 0.00-0.02 K/uL Sodium Level 141 136-145 mmol/L Potassium Level 4.0 3.5-5.1 mmol/L Chloride Level 104 98-107 mmol/L Carbon Dioxide Level 29 21-32 mmol/L Anion Gap 8.0 3-11 mmol/L Blood Urea Nitrogen 21 7-18 mg/dl Creatinine 1.20 0.60-1.40 mg/dl Estimated GFR () 65.3 Estimated GFR (Non- 56.4 BUN/Creatinine Ratio 17.6 10-20 Random Glucose 170 70-99 mg/dl Calcium Level 8.7 8.5-10.1 mg/dl Total Bilirubin 0.7 0.2-1 mg/dl Aspartate Amino Transf (AST/SGOT) 14 15-37 U/L Alanine Aminotransferase (ALT/SGPT) 28 12-78 U/L Alkaline Phosphatase 77 45-117 U/L Troponin I < 0.015 0-0.045 ng/ml Total Protein 7.2 6.4-8.2 gm/dl Albumin 3.9 3.4-5.0 gm/dl Globulin 3.3 2.5-4.0 gm/dl Albumin/Globulin Ratio 1.2 0.9-2 Lactic Acid Level 1.9 0.4-2.0 mmol/L Microbiology Results 02/08/17 Blood Culture, Received Pending 02/08/17 Blood Culture, Received Pending 02/08/17 Gram Stain, Received Pending 02/08/17 Wound Culture, Received Pending Diagnostic Radiology 1. Postsurgical and degenerative change. Fracture of one of the transverse screws. 2. No conventional radiographic evidence of osteomyelitis. Impression Assessment and Plan 81 y/o M w/Hx DM, CAD, Chronic back pain, LE neuropathy. History of extensive surgery on his L foot with hardware placement 7 years prior. Pt noted that he developed erythema around his swift and calf. On inspection of his foot, his noted swelling, erythema and exudate on the plantar aspect with erythema extending over his middle toes. He has not had any fever and does not describe pain although he has sensory impairment in his LEs as a result of his diabetes. As an aside, the pt describes a lower abdominal ache which has been present for several months. No etiology has been elucidated thus far. He denies N/V/D. 1) Cellulitis - possible abscess - pt will receive Ceftriaxone and a dose of Vanc pending culture results - the wound was cultured in the ER. With any worsening would consider an ortho consult and MRI due to previous surgery and hardware 2) DM - placed on sliding scale 3) Gout - cont Allopurinol 4) CAD - no related symptoms - cont ASA 5) Chronic back pain - Pt has a pain pump and receives [place] PRN 6) Chronic abdominal pain - advised to follow up with GI on discharge Full code - Heparin prophylaxis Total time for this admit including review of labs, records, imaging, meds - discussion with pt and ER attending 36 min Level of Care Med/Surg Resuscitation Status FULL RESUSCITATION VTE Prophylaxis VTE Risk Assessment Done? Y/N: Yes Risk Level: Moderate Given or contraindicated: Unfractionated heparin SQ
[2017-02-08] MEDS ORDERED: SODIUM CHLORIDE 0.9% 1000ML 1,000 ML IV SCH (14:00)
[2017-02-08 14:29] VITALS: O2SAT 93
[2017-02-08] MEDS ORDERED: GLUCAGON FOR INJ 1 MG VIAL SQ PRN (14:30)
[2017-02-08] MEDS ORDERED: GLUCOSE 10 TABS/TUBE PO PRN (14:30)
[2017-02-08] MEDS ORDERED: VANCOMYCIN CONSULT ACTIVE PRN (14:30)
[2017-02-08] MEDS ORDERED: GLUCOSE 40% GEL 15 GM TUBE PO PRN (14:30)
[2017-02-08] MEDS ORDERED: DEXTROSE 50% 50 ML SYR IV PRN (14:30)
[2017-02-08 14:35] LABS: PROTHROMBIN TIME (PATIENT) 10.7 SECONDS (9.0-12.0)
--- NOTE | 2017-02-08 14:50 | Pharmacy Progress Note ---
Pharmacy Abx Initial Consult Date of Service February 08, 2017. Pharmacy Dosing Scope Date of Consult: 02/08/17 Consultation requested by: Dr. Momin Pharmacy is consulted to initiate Vancomycin IV dosing therapy, order appropriate labs and adjust drug dose/frequency. Subjective The patient is a 81 year old male admitted on 02/08/17 with LLE cellulitis, possible abscess. Objective Height (Feet): 5 Height (Inches): 5.00 Vital Signs (Past 12Hrs) Vital Signs Past 12 Hours Date Time Temp Pulse Resp B/P Pulse Ox O2 Delivery O2 Flow Rate FiO2 02/08/17 14:29 70 20 131/83 93 Room Air 02/08/17 13:20 67 16 121/75 93 Room Air 02/08/17 11:38 70 16 122/78 93 Room Air 02/08/17 09:52 36.7 86 18 120/81 94 Room Air Lab Results (24Hrs) Test 02/08/17 10:05 02/08/17 11:00 White Blood Count 11.94 K/uL (4.8-10.8) Red Blood Count 4.64 M/uL (4.7-6.1) Hemoglobin 15.5 g/dL (14.0-18.0) Hematocrit 47.9 % (42-52) Mean Corpuscular Volume 103.2 fL (80-100) Mean Corpuscular Hemoglobin 33.4 pg (25-34) Mean Corpuscular Hemoglobin Concent 32.4 g/dl (32-36) Platelet Count 163 K/uL (130-400) Mean Platelet Volume 11.7 fL (7.4-10.4) Neutrophils (%) (Auto) 51.7 % Lymphocytes (%) (Auto) 39.4 % Monocytes (%) (Auto) 5.6 % Eosinophils (%) (Auto) 2.0 % Basophils (%) (Auto) 0.8 % Neutrophils # (Auto) 6.18 K/uL (1.4-6.5) Lymphocytes # (Auto) 4.70 K/uL (1.2-3.4) Monocytes # (Auto) 0.67 K/uL (0.11-0.59) Eosinophils # (Auto) 0.24 K/uL (0-0.5) Basophils # (Auto) 0.09 K/uL (0-0.2) RDW Standard Deviation 49.7 fL (36.4-46.3) RDW Coefficient of Variation 13.5 % (11.5-14.5) Immature Granulocyte % (Auto) 0.5 % Immature Granulocyte # (Auto) 0.06 K/uL (0.00-0.02) Prothrombin Time 10.7 SECONDS (9.0-12.0) Prothromb Time International Ratio 1.0 (0.9-1.1) Activated Partial Thromboplast Time 26.9 SECONDS (21.0-31.0) Partial Thromboplastin Ratio 1.0 Sodium Level 141 mmol/L (136-145) Potassium Level 4.0 mmol/L (3.5-5.1) Chloride Level 104 mmol/L (98-107) Carbon Dioxide Level 29 mmol/L (21-32) Anion Gap 8.0 mmol/L (3-11) Blood Urea Nitrogen 21 mg/dl (7-18) Creatinine 1.20 mg/dl (0.60-1.40) Estimated GFR () 65.3 Estimated GFR (Non- 56.4 BUN/Creatinine Ratio 17.6 (10-20) Random Glucose 170 mg/dl (70-99) Calcium Level 8.7 mg/dl (8.5-10.1) Total Bilirubin 0.7 mg/dl (0.2-1) Aspartate Amino Transf (AST/SGOT) 14 U/L (15-37) Alanine Aminotransferase (ALT/SGPT) 28 U/L (12-78) Alkaline Phosphatase 77 U/L (45-117) Troponin I < 0.015 ng/ml (0-0.045) Total Protein 7.2 gm/dl (6.4-8.2) Albumin 3.9 gm/dl (3.4-5.0) Globulin 3.3 gm/dl (2.5-4.0) Albumin/Globulin Ratio 1.2 (0.9-2) Lactic Acid Level 1.9 mmol/L (0.4-2.0) Micro Results Date/Time Source Procedure Growth Status 02/08/17 10:45 Blood Blood Culture Pending Received 02/08/17 10:05 Blood Blood Culture Pending Received 02/08/17 12:20 Ulcer Foot Gram Stain - Final Resulted 02/08/17 12:20 Ulcer Foot Wound Culture Pending Resulted Assessment & Plan Assessment 81 year old male admitted with LLE cellulitis, possible abscess. Plan Vancomycin and Ceftriaxone IV for treatment of LLE cellulitis, possible abscess Vancomycin IV * 2600 mg (25 mg/kg) x 1, then 1600 mg IV in 14 hours x 1 dose (vanc order states x 2 doses only) * No further dosing or levels will be ordered at this time per Ceftriaxone (not a consult) - consider increase to 2g IV daily due to weight > 100 kg Pharmacy will continue to follow and will adjust dose/frequency as necessary. Thank you.
[2017-02-08] MEDS ORDERED: VANCOMYCIN INJ 2,600 MG in SODIUM CHLORIDE 0.9% 500ML 500 ML IV ONE (15:00)
[2017-02-08 15:29] VITALS: BP 118/77; TEMP 36.5; O2SAT 94
[2017-02-08] MEDS: INSULIN ASPART 100 UNITS/ML 3 ML PEN SC SCH ×2 (16:30→20:34)
[2017-02-08] MEDS: HEPARIN SOD 5000 UNIT/0.5 ML CARP SQ SCH ×2 (16:52→23:33)
[2017-02-08] MEDS: LATANOPROST 0.005% OP SOLN 2.5 ML BTL OP SCH (20:32)
[2017-02-08] MEDS: EZETIMIBE 10MG TAB PO SCH (20:33)
[2017-02-08] MEDS: PREGABALIN 150 MG CAP PO SCH (20:33)
[2017-02-08] MEDS: ZOLPIDEM TARTRATE 5 MG TAB PO PRN (21:03)
[2017-02-09 00:18] VITALS: BP 125/78; PULSE 65; TEMP 36.6; O2SAT 93
[2017-02-09] MEDS ORDERED: VANCOMYCIN INJ 1,600 MG in SODIUM CHLORIDE 0.9% 500ML 500 ML IV SCH (05:00)
[2017-02-09 07:18] VITALS: BP 145/78; PULSE 67; TEMP 36.6; O2SAT 94
[2017-02-09] MEDS ORDERED: PANTOprazole SOD 40 MG TAB PO SCH (08:00)
[2017-02-09] MEDS ORDERED: GEMFIBROZIL 600 MG TAB PO SCH (08:00)
[2017-02-09] MEDS ORDERED: ASPIRIN 325 MG ECTAB PO SCH (08:00)
[2017-02-09] MEDS ORDERED: SPIRONOLACTONE 25 MG TAB PO SCH (08:00)
[2017-02-09] MEDS: INSULIN ASPART 100 UNITS/ML 3 ML PEN SC SCH ×4 (08:26→20:18)
[2017-02-09] MEDS: PREGABALIN 150 MG CAP PO SCH ×3 (08:27→21:47)
[2017-02-09] MEDS: ALLOPURINOL 300 MG TAB PO SCH (08:28)
[2017-02-09] MEDS: INDAPAMIDE 1.25 MG TAB PO SCH (08:29)
[2017-02-09] MEDS: CeleBREX 200 MG CAP PO SCH (08:30)
[2017-02-09] MEDS: TESTOSTERONE 1.62 % GEL 75GM BTL TD SCH (08:31)
[2017-02-09] MEDS: HEPARIN SOD 5000 UNIT/0.5 ML CARP SQ SCH ×3 (08:38→23:33)
[2017-02-09] MEDS ORDERED: NURSING DECISION MEDICATION ORDER SCH (08:45)
[2017-02-09] MEDS: HYDROCODONE/ACETAMOPHEN 5/325MG TAB PO PRN ×2 (10:34→21:55)
[2017-02-09] MEDS: SPIRONOLACTONE 25 MG TAB PO SCH (11:59)
[2017-02-09] MEDS: PANTOprazole SOD 40 MG TAB PO SCH (11:59)
[2017-02-09] MEDS: GEMFIBROZIL 600 MG TAB PO SCH (11:59)
[2017-02-09] MEDS: CEFTRIAXONE SOD INJ 1 GM in DEXTROSE 5% ADD-VANTAGE 50ML 50 ML IV SCH (13:53)
[2017-02-09 15:27] VITALS: BP 117/73; PULSE 64; TEMP 36.5; O2SAT 95
--- NOTE | 2017-02-09 16:24 | Progress Note ---
Subjective Date of Service: February 09, 2017. Subjective pt has baseline neuropathy and cannot feel feet, has persistent redness to dorsum of right foot just proximal to the 2-3 webspace, also erythema to area just above sock line, no pain nor swelling. otherwise has good appetite, no constipation or urinary issues Problem List Medical Problems: (1) Cellulitis of foot, left Status: Acute (2) Diabetic nephropathy Status: Acute (3) Pneumonia Status: Acute (4) Weakness Status: Acute Review of Systems Constitutional: No chills, No fatigue, No fever, No weakness Respiratory: No cough, No sputum Cardiac: No PND, No chest pain, No edema, No orthopnea Abdomen: No diarrhea, No nausea, No pain, No vomiting Musculoskeletal: No joint pain, No muscle pain Neurologic: No memory loss, No paralysis Psychiatric: No anhedonism, No depression symptoms Skin: + color change, + new/changing skin lesions Objective Vital Signs Date Time Temp Pulse Resp B/P Pulse Ox O2 Delivery O2 Flow Rate FiO2 02/09/17 07:18 36.6 67 16 145/78 94 Room Air 02/09/17 00:18 36.6 65 20 125/78 93 Room Air 02/09/17 00:00 Room Air 02/08/17 20:00 Room Air 02/08/17 15:30 Room Air 02/08/17 15:29 36.5 18 118/77 94 Room Air 02/08/17 14:29 70 20 131/83 93 Room Air 02/08/17 14:25 Room Air 02/08/17 13:20 67 16 121/75 93 Room Air 02/08/17 11:38 70 16 122/78 93 Room Air 02/08/17 09:52 36.7 86 18 120/81 94 Room Air Physical Exam General Appearance: WD/WN, + mild distress Eyes: PERRL, EOMI ENT: hearing grossly normal, pharynx normal Neck: supple, thyroid normal Respiratory/Chest: chest non-tender, lungs clear, normal breath sounds Cardiovascular: regular rate, rhythm, no murmur Abdomen: normal bowel sounds, non tender, soft Extremities: + pertinent finding (25C sized ecchymosis to plantar foot, with small open area that drained pus in the ER) Laboratory Results Last 24 Hours Test 02/08/17 10:05 02/08/17 11:00 02/08/17 16:56 02/08/17 20:24 White Blood Count 11.94 K/uL Red Blood Count 4.64 M/uL Hemoglobin 15.5 g/dL Hematocrit 47.9 % Mean Corpuscular Volume 103.2 fL Mean Corpuscular Hemoglobin 33.4 pg Mean Corpuscular Hemoglobin Concent 32.4 g/dl Platelet Count 163 K/uL Mean Platelet Volume 11.7 fL Neutrophils (%) (Auto) 51.7 % Lymphocytes (%) (Auto) 39.4 % Monocytes (%) (Auto) 5.6 % Eosinophils (%) (Auto) 2.0 % Basophils (%) (Auto) 0.8 % Neutrophils # (Auto) 6.18 K/uL Lymphocytes # (Auto) 4.70 K/uL Monocytes # (Auto) 0.67 K/uL Eosinophils # (Auto) 0.24 K/uL Basophils # (Auto) 0.09 K/uL RDW Standard Deviation 49.7 fL RDW Coefficient of Variation 13.5 % Immature Granulocyte % (Auto) 0.5 % Immature Granulocyte # (Auto) 0.06 K/uL Prothrombin Time 10.7 SECONDS Prothromb Time International Ratio 1.0 Activated Partial Thromboplast Time 26.9 SECONDS Partial Thromboplastin Ratio 1.0 Sodium Level 141 mmol/L Potassium Level 4.0 mmol/L Chloride Level 104 mmol/L Carbon Dioxide Level 29 mmol/L Anion Gap 8.0 mmol/L Blood Urea Nitrogen 21 mg/dl Creatinine 1.20 mg/dl Estimated GFR () 65.3 Estimated GFR (Non- 56.4 BUN/Creatinine Ratio 17.6 Random Glucose 170 mg/dl Calcium Level 8.7 mg/dl Total Bilirubin 0.7 mg/dl Aspartate Amino Transf (AST/SGOT) 14 U/L Alanine Aminotransferase (ALT/SGPT) 28 U/L Alkaline Phosphatase 77 U/L Troponin I < 0.015 ng/ml Total Protein 7.2 gm/dl Albumin 3.9 gm/dl Globulin 3.3 gm/dl Albumin/Globulin Ratio 1.2 Lactic Acid Level 1.9 mmol/L Bedside Glucose 112 mg/dl 127 mg/dl Assessment and Plan 81 y/o M Left foot diabetic foot infection and history of implanted hardware, w/ Hx DM, CAD, Chronic back pain, LE neuropathy. Diabetic foot infection possible abscess - Plain films not revealing, clinical improvement, pt will receive Ceftriaxone and a dose of Vanc pending culture results - the wound was cultured in the ER. wound consult in progress DM - stable on sliding scale, diabetic neuropathy on lyrica Gout - asymptomatic cont Allopurinol CAD - no related symptoms - cont ASA,lopid zetia Chronic back pain - Baseline pain, Pt has a pain pump and receives [place] PRN Chronic abdominal pain - advised to follow up with GI on discharge
[2017-02-09] MEDS: EZETIMIBE 10MG TAB PO SCH (20:18)
[2017-02-09] MEDS: ASPIRIN 325 MG ECTAB PO SCH (20:18)
[2017-02-09] MEDS: LATANOPROST 0.005% OP SOLN 2.5 ML BTL OP SCH (20:19)
[2017-02-09] MEDS: ZOLPIDEM TARTRATE 5 MG TAB PO PRN (21:52)
[2017-02-09 23:09] VITALS: BP 149/85; PULSE 61; TEMP 36.8; O2SAT 94
[2017-02-10 07:17] VITALS: BP 125/77; PULSE 58; TEMP 36.4; O2SAT 97
[2017-02-10] MEDS: TESTOSTERONE 1.62 % GEL 75GM BTL TD SCH (08:00)
[2017-02-10] MEDS ORDERED: NURSING VERBAL MED ORDER ONE (08:30)
[2017-02-10] MEDS: PREGABALIN 150 MG CAP PO SCH ×3 (08:55→20:35)
[2017-02-10] MEDS: ALLOPURINOL 300 MG TAB PO SCH (08:56)
[2017-02-10] MEDS: INDAPAMIDE 1.25 MG TAB PO SCH (08:56)
[2017-02-10] MEDS: METHYLCELLULOSE POWDER 454 GM JAR PO SCH (08:58)
[2017-02-10] MEDS: CeleBREX 200 MG CAP PO SCH (08:58)
[2017-02-10] MEDS: HEPARIN SOD 5000 UNIT/0.5 ML CARP SQ SCH ×2 (09:01→15:31)
[2017-02-10] MEDS: INSULIN ASPART 100 UNITS/ML 3 ML PEN SC SCH ×4 (09:01→20:42)
[2017-02-10] MEDS: HYDROCODONE/ACETAMOPHEN 5/325MG TAB PO PRN ×2 (09:08→15:04)
[2017-02-10] MEDS: PANTOprazole SOD 40 MG TAB PO SCH ×2 (12:32→20:32)
[2017-02-10] MEDS: CEFTRIAXONE SOD INJ 1 GM in DEXTROSE 5% ADD-VANTAGE 50ML 50 ML IV SCH (12:32)
[2017-02-10] MEDS: GEMFIBROZIL 600 MG TAB PO SCH ×2 (12:32→20:33)
[2017-02-10] MEDS: SPIRONOLACTONE 25 MG TAB PO SCH ×2 (12:33→20:32)
[2017-02-10 14:56] VITALS: BP 114/72; PULSE 72; TEMP 36.3; O2SAT 93
--- NOTE | 2017-02-10 16:09 | Progress Note ---
Subjective Date of Service: February 10, 2017. Subjective Pt states his foot is now more painful despite his neuropathy, pain with standing and bearing weight, 5/10 dull ache, relieved buy rest and elevation we also discussed abdominal pain, present for 3 months but worse since in hospital, ache, mid abdomen, maybe worsened by food, no change in stool habits, no history of pud but is on a ppi, also has GB;; I reviewed a non contrast CT from earlier this year and there is a gall stone seen in GB then, no inflammation noted. Problem List Medical Problems: (1) Cellulitis of foot, left Status: Acute (2) Diabetic nephropathy Status: Acute (3) Pneumonia Status: Acute (4) Weakness Status: Acute Review of Systems Constitutional: + fatigue, + weakness, No chills, No fever Respiratory: No cough, No dyspnea on exertion, No shortness of breath Cardiac: No PND, No chest pain, No edema, No see HPI Abdomen: + nausea, + pain, No GI bleeding, No constipation, No diarrhea, No vomiting Musculoskeletal: + joint pain, + muscle pain Male : No dysuria, No urinary frequency Psychiatric: No anhedonism, No depression symptoms Objective Vital Signs Date Time Temp Pulse Resp B/P Pulse Ox O2 Delivery O2 Flow Rate FiO2 02/10/17 15:35 Room Air 02/10/17 14:56 36.3 72 18 114/72 93 Room Air 02/10/17 08:00 Room Air 02/10/17 07:17 36.4 58 18 125/77 97 Room Air 02/10/17 00:00 Room Air 02/09/17 23:09 36.8 61 18 149/85 94 Room Air 02/09/17 16:25 Room Air Physical Exam General Appearance: WD/WN, + mild distress Eyes: PERRL, EOMI ENT: hearing grossly normal, pharynx normal Neck: supple, no JVD Respiratory/Chest: chest non-tender, lungs clear, normal breath sounds Cardiovascular: regular rate, rhythm, no murmur Abdomen: normal bowel sounds, soft, + guarding, + tenderness Extremities: no pedal edema, no calf tenderness Neurologic/Psychiatric: alert, oriented x 3 Laboratory Results Last 24 Hours Test 02/09/17 17:17 02/09/17 20:18 02/10/17 07:27 02/10/17 11:18 Bedside Glucose 119 mg/dl 109 mg/dl 119 mg/dl 104 mg/dl Assessment and Plan 81 y/o M Left foot diabetic foot infection and history of implanted hardware, w/ Hx DM, CAD, Chronic back pain, LE neuropathy. Diabetic foot infection possible abscess - Plain films not revealing, clinical improvement, Ceftriaxone and a dose of Vanc - the wound was cultured in the ER but unfortunately shows only corynebacterium with no sensitives to follow, additionally although quinolones would be a good choice he had an allergic reaction to levaquin infusion, may ask ID to comment on antibiotics, . wound consult in progress, with Dr Burton to see this week. Consider re imaging Abdominal pain not clear etiology, recheck LFT's, check US GB and increase gastritis coverage DM - stable on sliding scale, diabetic neuropathy on lyrica Gout - asymptomatic cont Allopurinol CAD - no related symptoms - cont ASA,lopid zetia Chronic back pain - Baseline pain, Pt has a pain pump and receives [place] PRN Chronic abdominal pain - advised to follow up with GI on discharge
[2017-02-10] MEDS: SUCRALFATE 1 GM TAB PO SCH ×2 (17:02→20:31)
[2017-02-10] MEDS: EUCERIN CR 120 GM JAR EXT SCH (20:30)
[2017-02-10] MEDS: EZETIMIBE 10MG TAB PO SCH (20:33)
[2017-02-10] MEDS: ASPIRIN 325 MG ECTAB PO SCH (20:33)
[2017-02-10] MEDS: LATANOPROST 0.005% OP SOLN 2.5 ML BTL OP SCH (20:34)
[2017-02-10 23:54] VITALS: BP 156/90; PULSE 60; TEMP 36.7; O2SAT 95
[2017-02-11] MEDS: ZOLPIDEM TARTRATE 5 MG TAB PO PRN (00:34)
[2017-02-11] MEDS: HEPARIN SOD 5000 UNIT/0.5 ML CARP SQ SCH ×2 (00:35→09:27)
[2017-02-11] MEDS: HYDROCODONE/ACETAMOPHEN 5/325MG TAB PO PRN ×3 (04:47→11:18)
[2017-02-11 05:51] LABS: HEMATOCRIT 47.6 % (42-52); MEAN CELL VOLUME 102.8 fL (80-100); MEAN CORPUSCULAR HEMOGLOBIN 33.3 pg (25-34); MEAN CORPUSCULAR HGB CONC 32.4 g/dl (32-36); MEAN PLATELET VOLUME 11.5 fL (7.4-10.4); PLATELET COUNT 160 K/uL (130-400); RED BLOOD COUNT 4.63 M/uL (4.7-6.1); WHITE BLOOD COUNT 11.82 K/uL (4.8-10.8)
[2017-02-11 06:22] LABS: ALT/SGPT 36 U/L (12-78); AST/SGOT 32 U/L (15-37); BLOOD UREA NITROGEN 19 mg/dl (7-18); BUN/CREATININE RATIO 14.5 (10-20); CALCIUM 8.9 mg/dl (8.5-10.1); CARBON DIOXIDE 30 mmol/L (21-32); CHLORIDE 104 mmol/L (98-107); GLUCOSE 122 mg/dl (70-99); POTASSIUM 4.4 mmol/L (3.5-5.1); SODIUM 140 mmol/L (136-145)
[2017-02-11 06:24] LABS: ALB/GLOB RATIO 1.2 (0.9-2); ALKALINE PHOSPHATASE 70 U/L (45-117)
--- NOTE | 2017-02-11 07:00 | DIAGNOSTIC IMAGING REPORT ---
ABDOMINAL ULTRASOUND, RIGHT UPPER QUADRANT HISTORY: Gallstones. Possible sepsis. COMPARISON: CT of the abdomen and pelvis August 01, 2016. FINDINGS: Increased hepatic echogenicity is consistent with fatty infiltration. There is an area of suspected sparing. There is no biliary ductal dilatation. Gallstones are noted within the gallbladder. There is no gallbladder wall thickening. There is no pericholecystic fluid. No biliary ductal dilatation was present. The pancreas was obscured by bowel gas. There was no right hydronephrosis. Note is made of a 14.5 x 9.8 x 13.9 cm right renal cyst. IMPRESSION: 1. Cholelithiasis. No gallbladder wall thickening. 2. Fatty liver. 3. Obscured pancreas. 4. Large right renal cyst. Electronically signed by: Benton Mcgrath M.D. 02/11/2017 6:59 AM Dictated Date/Time: 02/11/2017 6:57 AM
[2017-02-11 07:39] VITALS: BP 136/85; PULSE 68; TEMP 36; O2SAT 96
[2017-02-11] MEDS: METHYLCELLULOSE POWDER 454 GM JAR PO SCH (08:09)
[2017-02-11] MEDS: PANTOprazole SOD 40 MG TAB PO SCH (08:10)
[2017-02-11] MEDS: SUCRALFATE 1 GM TAB PO SCH ×2 (08:10→11:17)
[2017-02-11] MEDS: INDAPAMIDE 1.25 MG TAB PO SCH (08:10)
[2017-02-11] MEDS: ALLOPURINOL 300 MG TAB PO SCH (08:11)
[2017-02-11] MEDS: PREGABALIN 150 MG CAP PO SCH (08:12)
[2017-02-11] MEDS: CeleBREX 200 MG CAP PO SCH (08:12)
[2017-02-11] MEDS: INSULIN ASPART 100 UNITS/ML 3 ML PEN SC SCH ×2 (08:13→11:33)
[2017-02-11] MEDS: EUCERIN CR 120 GM JAR EXT SCH (08:13)
[2017-02-11] MEDS: TESTOSTERONE 1.62 % GEL 75GM BTL TD SCH (08:15)
--- NOTE | 2017-02-11 10:20 | Progress Note ---
Progress Note Date of Service February 11, 2017. Progress Note ID Consult Dictated # [id number] A/P: 1. Diabetic foot ulcer -Can continue IV abx for now, upon d/c home would suggest doxy 100mg po bid with food x 14 days -Continue local wound care -Pt to follow at wound center post d/c, can follow with ID as well -ok for d/c from ID standpoint -thank you
[2017-02-11] MEDS ORDERED: SUCR1TAB PO (12:48)
[2017-02-11] MEDS ORDERED: DXY100 PO (12:48)
--- NOTE | 2017-02-11 12:51 | Discharge Instructions ---
Discharge Instructions Date of Service February 11, 2017. Admission Reason for Admission: Left foot cellulitis/wound Discharge Discharge Diagnosis / Problem: Left foot cellulitis/wound Discharge Goals Goal(s): Improve disease control, Therapeutic intervention Activity Recommendations Activity Limitations: as noted below Keep wound covered and dressed as per Dr. Burton's instructions. You will be receiving a walking boot with Dr. Burton tomorrow. . Instructions / Follow-Up Instructions / Follow-Up You were admitted with a foot wound and cellulitis and treated with IV antibiotics. You were seen by Dr. Burton of Wound Care and by Dr. Paredes of Infectious disease. Please finish out a course of doxycycline-please take this with food (not dairy) and a full glass of water. Please follow up with Dr. Neil within 1 week as well. You may need referral to GI for your chronic abdominal pain. Current Hospital Diet Patient's current hospital diet: Diabetes Type 2 Diet Discharge Diet Recommended Diet: Diabetes Type 2 Diet Procedures Procedures Performed: Chest xray Foot xray Galbladder ultrasound Pending Studies Studies pending at discharge: yes List of pending studies: Final Blood culture results Laboratory Results Hemoglobin A1c Test 12/20/16 08:19 Range/Units Estimated Average Glucose 169 mg/dl Hemoglobin A1c 7.5 H 4.5-5.6 % Lipid Panel Test 12/20/16 08:19 Range/Units Triglycerides Level 206 H 0-150 mg/dl Cholesterol Level 160 0-200 mg/dl HDL Cholesterol 32 mg/dl Cholesterol/HDL Ratio 5.0 LDL Cholesterol, Calculated 87 mg/dl Medical Emergencies . Who to Call and When: Medical Emergencies: If at any time you feel your situation is an emergency, please call 911 immediately. . Non-Emergent Contact Non-Emergency issues call your: Primary Care Provider Call Non-Emergent contact if: you have a fever, your pain is not controlled, your pain is worsening, wound has increased drainage, wound has increased redness, wound has increased pain, you have any medication questions . . "Provider Documentation" section prepared by Tess Medellin. . VTE Core Measure Inpt VTE Proph given/why not?: Unfractionated heparin SQ
[2017-02-11 13:19] VITALS: BP 136/85; PULSE 68; TEMP 36; O2SAT 96
--- NOTE | 2017-02-11 13:26 | INFECT. DISEASE CONSULTATION ---
DATE OF CONSULTATION: 02/11/2017 REQUESTING PHYSICIAN: Dr. Momin. HISTORY OF PRESENT ILLNESS: This is an 81-year-old gentleman who was admitted to the hospital on the after he noticed an ulceration on the dorsal aspect of his left foot. He does have a history of neuropathy and he is unsure when he initially developed an ulcer; however, he states he was doing a significant amount of walking on and recently had new orthotics placed in his shoes within the last 2-3 weeks. He did notice some weeping from this area and erythema and presented to the Emergency Room. A culture was obtained in the ER and is only growing coagulase negative staph and corynebacterium, which have not been further worked up in the micro lab. His blood cultures from the ; however, are negative. He has been afebrile since admission to the hospital. He was placed empirically on vancomycin and Rocephin and is being followed by wound care for dressing changes. He is to have a formal wound care consultation prior to discharge. He did have an x-ray of the foot in the Emergency Room, which was negative for osteomyelitis. He denies any previous history of cellulitis or diabetic foot ulcers in the past. He has no old micro here for review. Currently, he is feeling significantly better and is asking to go home. He has tolerated his antibiotics well. He is eating well. He denies any chest pain, cough, shortness of breath, nausea, vomiting, diarrhea, or abdominal pain. He has tolerated IV antibiotics. He has no allergies or intolerance to antibiotics with the exception of Levaquin. He is planning to follow up with the wound care center post-discharge from the hospital. All remaining review of systems are reviewed and are negative. PAST MEDICAL HISTORY: Significant for coronary artery disease, high cholesterol, hypertension, and osteoarthritis. FAMILY HISTORY: Noncontributory. SOCIAL HISTORY: Negative for tobacco use, alcohol use or drug use. He is and lives with his . He denies any recent sick contacts. ALLERGIES: INCLUDE HYDROCHLOROTHIAZIDE, IODINE, ADHESIVE TAPE, NIFEDIPINE, LEVAQUIN, NSAIDs, CEPHALOSPORINS, however, he is tolerating Rocephin during this admission and atorvastatin. CURRENT MEDICATIONS: Include Protonix, Carafate, aspirin, Rocephin, Lopid, spironolactone, allopurinol, Celebrex, Lozol, AndroGel, , Lyrica, insulin, subQ heparin, vancomycin, Tylenol, Maalox, milk of magnesia, Zofran, Percocet, and Ambien. PHYSICAL EXAMINATION: VITAL SIGNS: He is afebrile, pulse 68, respiratory rate 18, blood pressure 136/85, oxygen saturation is 96% on room air. GENERAL: He is awake, alert and oriented x3. He is in no acute distress. HEENT: Mucous membranes are moist. Extraocular muscles are intact. HEART: Regular. LUNGS: Clear bilaterally. ABDOMEN: Soft, nontender, nondistended. EXTREMITIES: There is no lower extremity edema. Examination of the left foot reveals no erythema, warmth or tenderness. There is an open blister on the dorsal left foot. There is no tenderness to palpation. I am unable to express any drainage. There is no surrounding purulence, erythema, warmth, or edema. LABORATORY STUDIES: CBC today reveals a white blood cell count of 11.8, hemoglobin is 15.4 and platelets are 160. Chemistry panel today reveals a sodium of 140, potassium 4.4, chloride 104, bicarbonate 30, BUN 19, creatinine 1.3, glucose is 142. LFTs are within normal limits. Blood cultures from the are no growth to date x2 sets. A superficial wound culture from the foot grew corynebacterium and coag negative staph which was finalized. A chest x-ray in the ER was unremarkable. Foot x-ray again had no evidence of osteomyelitis. ASSESSMENT AND PLAN: Diabetic foot ulceration, certainly he can continue on IV antibiotics for now, I would recommend upon discharge transitioning to oral doxycycline 100 mg twice daily with food for duration of 2 weeks. If he does have plans to follow in the wound care center post-discharge he can follow with infectious diseases at that time. I do not see any contraindication for discharge from an infectious diseases standpoint. Thank you for this consultation. MYRNA
--- NOTE | 2017-02-11 15:21 | CONSULTATION REPORT ---
DATE OF CONSULTATION: 02/11/2017 INPATIENT CONSULTATION CHIEF COMPLAINT: Ulceration, left foot. HISTORY OF PRESENT ILLNESS: The patient was recently admitted to [facility] 3 days prior due to swelling and redness of his left foot. He states that his noticed a blister formation on the plantar surface of the foot, the day before. The patient has recently had a new pair of orthotic shoes, which he felt may have been too loose. 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 The patient has a prior history of a Charcot foot deformity and has had multiple surgical interventions to deal with this particular problem. The patient currently denies any significant pain, swelling, fever, chills or night sweats. The patient denies any chest pain, shortness of breath, abdominal discomfort, nausea or vomiting. The patient denies any other systemic complaints at this time. PAST MEDICAL HISTORY: Positive for coronary artery disease, hyperlipidemia, hypertension, post-laminectomy syndrome, and osteoarthritis. SOCIAL HISTORY: The patient is a nonsmoker, and lives at home. ALLERGIES: TO ADHESIVES, NIFEDIPINE, LEVOFLOXACIN, NSAIDS, CEPHALOSPORINS, ATORVASTATIN, IODINATED DIAGNOSTIC AGENTS AND HYDROCHLOROTHIAZIDE. MEDICATIONS: Noted in the emergency were reviewed. REVIEW OF SYSTEMS: Ten systems were reviewed in their entirety and positive findings were noted in the chief complaint and history of present illness. The patient does have a history of diabetes, non-insulin dependent. PHYSICAL EXAMINATION: VITAL SIGNS: Reviewed and found to be unremarkable. GENERAL: The patient is lying in hospital bed in no acute distress, alert and cooperative throughout the examination. HEENT: Pupils equal and reactive to light. Sclerae clear. NECK: Supple. CHEST: Heart and lungs clear to auscultation. EXTREMITIES: Reveals the presence of an area of callus formation with a small central ulceration along with an area of what may appear to be deep tissue injury on the plantar surface over the head of the first and second metatarsal. There is no active drainage from this site. There is no periwound erythema noted. There is no significant edema on the plantar surface of the foot present. Pulses are intact, range of motion, he is on a Cam boot. NEUROLOGIC: The patient is alert and oriented x3. There are no focal deficits noted. IMPRESSION: 1. Diabetic foot ulcer, Mathis grade 1 left foot, questionable deep tissue injury. PLAN: At this time, these sites did require debridement. With the patient's permission, the site was debrided with a #5 curette. The area that appeared to be a deep tissue injury was actually had blackened eschar from the collapsible blister formation was removed demonstrated no evidence of any ecchymosis or discoloration. There was, however, a small ulceration present at this site measuring 0.7 x 0.7 x 0.1 cm. The medial area of ulceration with callus formation was debrided with a #5 curette of surrounding callus and some underlying skin revealed an ulceration measuring 0.3 x 0.5 x 0.1 cm. There was no significant drainage present. No bleeding noted. Site; however, was cultured and will be dressed with Aquacel AG and gauze, changed on a daily basis. The patient will have an orthotic consult for ongoing offloading issues with probable Cam boot utilization which the patient states he does have the home. The patient will be followed in outpatient clinic upon discharge. This represented a nonexcisional debridement of less than 20 square cm on a Mathis grade 1 diabetic foot ulcer of the left foot.
--- NOTE | 2017-02-24 11:00 | Discharge Summary ---
Discharge Summary Date of Service February 11, 2017. 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 Possible osteomyelitis. COMPARISON: None. DISCUSSION: No acute fractures are visualized. There are postsurgical changes present within the midfoot. The patient appears to be status post arthrodesis with a medial metallic plate traversing the first tarsal metatarsal joint. Transverse screws traverse the bases of the first second and third metatarsals as well as the medial and middle cuneiforms. There is also a screw traversing the navicular medial cuneiform joint. The distalmost transverse screw is fractured. There is also a screw present traversing third tarsometatarsal joint. There are no bony destructive changes to indicate osteomyelitis. Degenerative changes are present the level the first metatarsal phalangeal joint. There is soft tissue staple at the level of the medial aspect of the distal tibia. IMPRESSION: 1. Postsurgical and degenerative change. Fracture of one of the transverse screws. 2. No conventional radiographic evidence of osteomyelitis CHEST 2 VIEWS ROUTINE CLINICAL HISTORY: Cellulitis COMPARISON STUDY: 01/04/2017 FINDINGS: The cardiac and mediastinal contours remain stable. There are postsurgical changes of midline sternotomy. There is mild elevation right hemidiaphragm. There is no focal pulmonary consolidation. There is no failure. There are no pleural effusions.[ IMPRESSION: Stable mild elevation right hemidiaphragm. No active disease in the chest. ABDOMINAL ULTRASOUND, RIGHT UPPER QUADRANT HISTORY: Gallstones. Possible sepsis. COMPARISON: CT of the abdomen and pelvis August 01, 2016. FINDINGS: Increased hepatic echogenicity is consistent with fatty infiltration. There is an area of suspected sparing. There is no biliary ductal dilatation. Gallstones are noted within the gallbladder. There is no gallbladder wall thickening. There is no pericholecystic fluid. No biliary ductal dilatation was present. The pancreas was obscured by bowel gas. There was no right hydronephrosis. Note is made of a 14.5 x 9.8 x 13.9 cm right renal cyst. IMPRESSION: 1. Cholelithiasis. No gallbladder wall thickening. 2. Fatty liver. 3. Obscured pancreas. 4. Large right renal cyst. Consultations: Infectious Disease Wound Care Medication Reconciliation New Medications: Doxycycline Hyclate (Doxycycline Hyclate) 100 Mg Cap 100 MG PO BID for 14 Days, #28 CAP Sucralfate (Sucralfate) 1 Gm Tab 1 GM PO BID PRN for stomach pain, #28 TAB Continued Medications: Allopurinol (Zyloprim) 300 Mg Tab 300 MG PO DAILY, TAB Aspirin (Ecotrin Regular Strength) 325 Mg Tab 325 MG PO DAILY Celecoxib (CeleBREX) 200 Mg Cap 200 MG PO QAM, CAP Ezetimibe (Zetia) 10 Mg Tab 10 MG PO QPM Gemfibrozil (Lopid) 600 Mg Tab 600 MG PO DAILY Glipizide (Glucotrol) 5 Mg Tab 0.5 TAB PO DAILY for 30 Days, #15 TAB 3 Refills Hydrocodone/Acetaminophen 5MG/325MG ([place] 5MG/325MG) Tab 1 TABLET PO UD PRN for Pain PRN PAIN Indapamide (Lozol) 1.25 Mg Tab 2.5 MG PO QAM, TAB Latanoprost (Xalatan 0.005% Oph Yaquelin) 0.005 % Y[place]elin 1 DROPS OP HS Pantoprazole (Protonix) 40 Mg Tab 40 MG PO NOON Pregabalin (Lyrica) 150 Mg Cap 150 MG PO TID Spironolactone (Aldactone) 50 Mg Tab 50 MG PO QAM Testosterone (Androgel Pump) 1.62 % Gel 40.5 MG TOP DAILY, #75 GM 5 Refills Zolpidem Tartrate (Ambien) 5 Mg Tab 5 MG PO HS PRN for Sleep [pain pump] () INT SPINAL CONTINOUS MORPHINE 15.0 mg/ML @ 3.305 mg/DAY CLONIDINE 700.0 mcg/ML @ 143.22 mcg/DAY BUPIVACAINE 2.0 mg/ML @ 0.4407 mg/DAY Referrals At Discharge Follow up Referrals: Infectious Disease - Within 1 Week with Jennifer. Paredes D.O. Physician Referral - 02/12/17 with Trace Burton, Physician Referral - Within 1-2 Weeks with Miles Neil M.D. Discharge Exam Pt doing well on day of discharge. Had foot ulcer debrided by Wound Care, seen by ID and recommended dc to home on po doxy. Afebrile. Chronic abdominal pain is unchanged for him. Review of Systems: Constitutional: No fever Eyes: No problem reported ENT: No problem reported Respiratory: No problem reported Cardiovascular: No problem reported Abdomen: + pain (as per HPI) Musculoskeletal: No problem reported Genitourinary - Male: No problem reported Neurologic: + numbness/tingling (in feet) Psychiatric: No problem reported Endocrine: No problem reported Hematologic / Lymphatic: No problem reported Integumentary: No problem reported Physical Exam: General Appearance: WD/WN, no apparent distress Eyes: normal inspection, sclerae normal ENT: hearing grossly normal Neck: trachea midline Respiratory/Chest: lungs clear, normal breath sounds, no respiratory distress, no accessory muscle use Cardiovascular: regular rate, rhythm, no edema, no murmur Abdomen / GI: normal bowel sounds, non tender, soft, no organomegaly, no pulsatile mass Extremities: no pedal edema, + pertinent finding (left foot with dressing in place and not removed, no erythema of leg) Neurologic/Psychiatric: alert, normal mood/affect, oriented x 3 Skin: no rash Hospital Course 81 y/o M w/Hx DM, CAD, HTN, HL, Chronic back pain, LE DM neuropathy. History of extensive surgery on his L foot with hardware placement 7 years prior. Pt noted that he developed erythema around his swift and calf. On inspection of his foot, his noted swelling, erythema and exudate on the plantar aspect with erythema extending over his middle toes. He has not had any fever and does not describe pain although he has sensory impairment in his LEs as a result of his diabetes. As an aside, the pt describes a lower abdominal ache which has been present for several months. No etiology has been elucidated thus far. He denies N/V/D. Cellulitis/DM foot ulcer - no abscess discovered on debridement with Wound Care - he received Ceftriaxone and a dose of Vanc pending culture results - the wound was cultured and grew out Coag neg Staph and Corynebacterium. ID saw and recommended dc to home on po doxy. Wound Care MD debrided the small ulcer and recommended dressing changes and Orthotics to off load. Plain films not revealing, had clinical improvement and was stable for discharge to home. Abdominal pain not clear etiology, LFT's normal, US GB with cholelithiasis and fatty liver, very large but stable right renal cyst around the area of his pain- -could be pain from gastritis or from cyst? -f/u with GI after discharge DMII - stable on sliding scale, HgbA1C 7.5% in 11/2016-well controlled; diabetic neuropathy on lyrica Gout - asymptomatic cont Allopurinol CAD - no related symptoms - cont ASA,lopid zetia Chronic back pain - Baseline pain, Pt has a pain pump and receives [place] PRN Total Time Spent: Greater than 30 minutes This includes examination of the patient, discharge planning, medication reconciliation, and communication with other providers. Discharge Instructions Please refer to the electronic Patient Visit Report (Discharge Instructions) for additional information. Follow-Up PCP within 1 week Wound Care clinic Additional Copies To Miles Neil M.D.; Trace Burton, DO
[2017-03-11] MEDS ORDERED: GLIP2.5T11 PO (08:37)
[2017-04-11] MEDS ORDERED: SUCR1TAB29 PO (10:02)
[2017-06-12] MEDS ORDERED: MISCCAP80 PO (09:39)
[2017-06-12] MEDS ORDERED: ACET1TAB84 PO (09:40)
[2017-06-12] MEDS ORDERED: POTASSIUM OTC PO (09:40)
== END 2017-02-11 14:21 | disposition home or self-care (01) | DRG 603 ==
LOC: ENRESERVTM → CANRESERV → ENRESERVDT → C.EDB 09:51 → C.4E 15:18
PROVIDERS: ADMIT Internal Medicine; ATTEND Family Medicine
PROC: 0Y9N0ZZ Drainage of Left Foot, Open Approach (ICD-10-PCS; principal; 2017-02-08)
DX: L03.116 Cellulitis of left lower limb (principal); E11.40 Type 2 diabetes mellitus with diabetic neuropathy, unspecified; I25.10 Atherosclerotic heart disease of native coronary artery without angina pectoris; E78.5 Hyperlipidemia, unspecified; I10 Essential (primary) hypertension; E11.21 Type 2 diabetes mellitus with diabetic nephropathy; M19.90 Unspecified osteoarthritis, unspecified site; M10.9 Gout, unspecified; M54.9 Dorsalgia, unspecified; G89.29 Other chronic pain; Z97.8 Presence of other specified devices; Z79.82 Long term (current) use of aspirin

== ENCOUNTER → 2017-03-14 | Day surgery (SDC) | payer BC ==
[2017-03-11 08:38] VITALS: Ht 162.6 cm; Wt 105.0 kg
[~2017-03-14] VITALS: Ht 162.6 cm; Wt 105.0 kg
[~2017-03-14] MED LIST changes: +ACET1TAB84 PO; -CLB/200 PO; +FENTANYL CITRATE INJ 50 MCG/1 ML 2 ML VIAL ONE; +GLIP2.5T11 PO; -GLIP5TAB11 PO; -HYDR-5688 PO; +LIDOCAINE HCL 2% 2 ML VIAL (20MG/ML) ONE; +MISCCAP80 PO; +POTASSIUM OTC PO; +PROPOFOL IV EMULSION 10 MG/ML 20 ML VIAL IV ONE; +SUCR1TAB PO; +SUCR1TAB29 PO
--- NOTE | 2017-03-14 13:26 | Endo History and Physical ---
History & Physical Date of Service: Mar 14, 2017. Chief Complaint: Abdominal pain Referring Physician: Rashaad History of Present Illness 81 yo CM who presents for EGD secondary to abdominal pain. Past Medical History Diabetes, Cancer, High Cholesterol, Heart Disease, Hypertension Past Surgical History Hx Cardiac Surgery: Yes (HEART CATH-NO STENTS, CABG-3 VESSELS) Hx Internal Defibrillator: No Hx Pacemaker: No Hx Abdominal Surgery: Yes (UMBILICAL HERNIA, APPY) Hx of Implantable Prosthesis: No Hx Post-Op Nausea and Vomiting: No Hx Cancer Surgery: No Hx Thoracic Surgery: No Hx Urinary Tract Surgery: No Family History IBD Social History Smoking Status: Former Smoker Hx Substance Use: Yes (PAIN PUMP) Hx Alcohol Use: Yes (OCCASIONALLY A GLASS OF WINE) Allergies Coded Allergies: Hydrochlorothiazide (Verified Allergy, Severe, Hives, 03/14/17) Iodinated Diagnostic Agents (Verified Allergy, Severe, Convulsions, ) Adhesives (Verified Allergy, Intermediate, RASH;PULLS SKIN OFF, 03/14/17) Nifedipine (Verified Allergy, Intermediate, Sick to stomach, 03/14/17) Levofloxacin (Verified Allergy, Mild, HIVES, 03/14/17) itching NSAIDs (Verified Allergy, Mild, Elevated BP, 03/14/17) Cephalosporins (Verified Adverse Reaction, Intermediate, nausea after repeated dose, 03/14/17) Atorvastatin (Verified Adverse Reaction, Unknown, MUSCLE ACHES, 03/14/17) Doxycycline (Verified Adverse Reaction, Unknown, gi upset, 03/14/17) Current Medications Reported Home Medications Medications Dose Route/Sig Max Daily Dose Days Date Category Dose Instructions Glipizide Er (Glipizide) 2.5 Mg Tab 1 Tab PO QAM 90 03/11/17 Reported Sucralfate 1 Gm Tab 1 Gm PO BID PRN 02/11/17 Rx [pain pump] INT SPINAL CONTINOUS 01/04/17 Reported MORPHINE 15.0 mg/ML @ 3.305 mg/DAY CLONIDINE 700.0 mcg/ML @ 143.22 mcg/DAY BUPIVACAINE 2.0 mg/ML @ 0.4407 mg/DAY Ecotrin Regular Strength (Aspirin) 325 Mg Tab 325 Mg PO QPM 01/04/17 Reported Xalatan 0.005% Oph Yaquelin (Latanoprost) 0.005 % Yaquelin 1 Drops OPB HS 01/01/17 Reported Zyloprim (Allopurinol) 300 Mg Tab 300 Mg PO QAM 01/01/17 Reported Lozol (Indapamide) 1.25 Mg Tab 2.5 Mg PO QAM 01/01/17 Reported Androgel Pump (Testosterone) 1.62 % Gel 40.5 Mg TOP DAILY 12/17/16 Reported Protonix (Pantoprazole) 40 Mg Tab 40 Mg PO BID 06/07/15 Reported Ambien (Zolpidem Tartrate) 5 Mg Tab 5 Mg PO HS PRN 12/04/14 Reported Lyrica (Pregabalin) 150 Mg Cap 150 Mg PO TID 03/30/11 Reported Zetia (Ezetimibe) 10 Mg Tab 10 Mg PO QPM 03/19/07 Reported Aldactone (Spironolactone) 50 Mg Tab 50 Mg PO QAM 03/19/07 Reported Lopid (Gemfibrozil) 600 Mg Tab 600 Mg PO QAM 03/19/07 Reported Vital Signs Weight (Kilograms): 105 Height (Feet): 5 Height (Inches): 4 Date Time Temp Pulse Resp B/P (MAP) Pulse Ox O2 Delivery O2 Flow Rate FiO2 03/14/17 13:07 36.7 78 18 150/90 (110) 94 Room Air Physical Exam General Appearance: WD/WN, no apparent distress Respiratory/Chest: Auscultation: breath sounds normal Cardiovascular: Heart Auscultation: RRR Abdomen: Bowel Sounds: normal Inspection & Palpation: soft, non-distended, no tenderness, guarding & rebound Assessment and Plan Assessment: 81 yo CM who presents for EGD secondary to abdominal pain. Plan: Proceed with EGD.
--- NOTE | 2017-03-14 14:09 | Discharge Instructions ---
Endoscopy Patient Instructions Date / Procedure(s) Performed Mar 14, 2017. EGD Allergy Information Coded Allergies: Hydrochlorothiazide (Verified Allergy, Severe, Hives, 03/14/17) Iodinated Diagnostic Agents (Verified Allergy, Severe, Convulsions, ) Adhesives (Verified Allergy, Intermediate, RASH;PULLS SKIN OFF, 03/14/17) Nifedipine (Verified Allergy, Intermediate, Sick to stomach, 03/14/17) Levofloxacin (Verified Allergy, Mild, HIVES, 03/14/17) itching NSAIDs (Verified Allergy, Mild, Elevated BP, 03/14/17) Cephalosporins (Verified Adverse Reaction, Intermediate, nausea after repeated dose, 03/14/17) Atorvastatin (Verified Adverse Reaction, Unknown, MUSCLE ACHES, 03/14/17) Doxycycline (Verified Adverse Reaction, Unknown, gi upset, 03/14/17) Discharge Date / Findings Mar 14, 2017. Gastritis s/p biopsies Medication Instructions OK to resume all medications today as prescribed Reported Home Medications Medications Dose Route/Sig Max Daily Dose Days Date Category Dose Instructions Glipizide Er (Glipizide) 2.5 Mg Tab 1 Tab PO QAM 90 03/11/17 Reported Sucralfate 1 Gm Tab 1 Gm PO BID PRN 02/11/17 Rx [pain pump] INT SPINAL CONTINOUS 01/04/17 Reported MORPHINE 15.0 mg/ML @ 3.305 mg/DAY CLONIDINE 700.0 mcg/ML @ 143.22 mcg/DAY BUPIVACAINE 2.0 mg/ML @ 0.4407 mg/DAY Ecotrin Regular Strength (Aspirin) 325 Mg Tab 325 Mg PO QPM 01/04/17 Reported Xalatan 0.005% Oph Yaquelin (Latanoprost) 0.005 % [place]elin 1 Drops OPB HS 01/01/17 Reported Zyloprim (Allopurinol) 300 Mg Tab 300 Mg PO QAM 01/01/17 Reported Lozol (Indapamide) 1.25 Mg Tab 2.5 Mg PO QAM 01/01/17 Reported Androgel Pump (Testosterone) 1.62 % Gel 40.5 Mg TOP DAILY 12/17/16 Reported Protonix (Pantoprazole) 40 Mg Tab 40 Mg PO BID 06/07/15 Reported Ambien (Zolpidem Tartrate) 5 Mg Tab 5 Mg PO HS PRN 12/04/14 Reported Lyrica (Pregabalin) 150 Mg Cap 150 Mg PO TID 03/30/11 Reported Zetia (Ezetimibe) 10 Mg Tab 10 Mg PO QPM 03/19/07 Reported Aldactone (Spironolactone) 50 Mg Tab 50 Mg PO QAM 03/19/07 Reported Lopid (Gemfibrozil) 600 Mg Tab 600 Mg PO QAM 03/19/07 Reported Provider Instructions Activity Restrictions - No exercising or heavy lifting for 24 hours. - Do not drink alcohol the day of the procedure. - Do not drive a car or operate machinery until the day after the procedure. - Do not make any important decisions or sign important papers in 24 hours after the procedure. Following Day: - Return to full activity which may include returning to work/school. Diet Start your diet with liquids and light foods (jello, soup, juice, toast). Then eat your usual diet if not nauseated. Treatment For Common After Affects For mild abdominal pain, bloating, or excessive gas: - Rest - Eat lightly - Lie on right side Follow-Up Information Follow-up with Rashaad as scheduled Anesthesia Information What You Should Know You have had a procedure that required some medicine to reduce anxiety and discomfort. This treatment is called moderate sedation. After receiving the treatment, you may be sleepy, but you will be able to breathe on your own. The effects of the treatment may last for several hours. Follow these instructions along with Activity/Diet recommendations noted above: * Do NOT do anything where dizziness or clumsiness would be dangerous. * Rest quietly at home today, then you can be up and about tomorrow. * Have a responsible person stay with you the rest of today. * You may have had an I.V. today. If so, you may take the dressing off later today. Recommendations Call your doctor if: * Trouble breathing * Continuous vomiting for more than 24 hours * Temperature above 101 degrees * Severe abdominal pain or bloating * Pain not relieved by pain medicine ordered * There is increased drainage or redness from any incision * A large amount of rectal bleeding greater than 2-3 tablespoons. (If you had a polyp/s removed or have hemorrhoids, a small amount of blood - from the rectum is to be expected.) * You have any unanswered questions or concerns. IN THE EVENT OF A SERIOUS EMERGENCY, GO TO THE NEAREST EMERGENCY ROOM Your discharge instructions were prepared by provider Bipin Riggins. Patient Instructions Signature Page Basilio Wiggins Patient (or Guardian) Signature/Date: I have read and understand the instructions given to me by my caregivers. Caregiver/RN/Doctor Signature/Date: The above-named patient and/or guardian has received patient instructions on this date. + Original Patient Signature Page (only) stays with chart. Please make copy for patient.
--- NOTE | 2017-03-14 14:37 | Anesthesiology Progress Note ---
Anesthesia Post Op Note Date & Time Mar 14, 2017 at 14:36 Vital Signs Pain Intensity: 0 Vital Signs Past 12 Hours Date Time Temp Pulse Resp B/P (MAP) Pulse Ox O2 Delivery O2 Flow Rate FiO2 03/14/17 14:24 70 20 140/78 (98) 95 Room Air 03/14/17 14:09 67 16 137/77 (97) 95 Room Air 03/14/17 13:07 36.7 78 18 150/90 (110) 94 Room Air Notes Mental Status: alert / awake / arousable, participated in evaluation Pt Amnestic to Procedure: Yes Nausea / Vomiting: adequately controlled Pain: adequately controlled Airway Patency, RR, SpO2: stable & adequate BP & HR: stable & adequate Hydration State: stable & adequate Anesthetic Complications: no major complications apparent
--- NOTE | 2017-03-14 14:38 | GI REPORT ---
Procedure Date: 03/14/2017 1:58 PM Procedure: Upper GI endoscopy Indications: Epigastric abdominal pain Medicines: Monitored Anesthesia Care Complications: No immediate complications. Estimated Blood Loss: Estimated blood loss: none. Procedure: Pre-Anesthesia Assessment: - Prior to the procedure, a History and Physical was performed, and patient medications and allergies were reviewed. The patient's tolerance of previous anesthesia was also reviewed. The risks and benefits of the procedure and the sedation options and risks were discussed with the patient. All questions were answered, and informed consent was obtained. Prior Anticoagulants: The patient has taken aspirin, last dose was 1 day prior to procedure. ASA Grade Assessment: III - A patient with severe systemic disease. After reviewing the risks and benefits, the patient was deemed in satisfactory condition to undergo the procedure. After obtaining informed consent, the endoscope was passed under direct vision. Throughout the procedure, the patient's blood pressure, pulse, and oxygen saturations were monitored continuously. The scope was introduced through the mouth, and advanced to the second part of duodenum. The upper GI endoscopy was accomplished without difficulty. The patient tolerated the procedure well. Findings: The esophagus was normal. Localized moderate inflammation characterized by erythema and granularity was found in the gastric antrum. Biopsies were taken with a cold forceps for histology. The examined duodenum was normal. Impression: - Normal esophagus. - Gastritis. Biopsied. - Normal examined duodenum. Recommendation: - Resume previous diet. - Continue present medications. - Await pathology results. - Return to primary care physician as previously scheduled. Bipin Riggins, DO 03/14/2017 2:37:54 PM This report has been signed electronically. Note Initiated On: 03/14/2017 1:58 PM I attest to the content of the Intraoperative Record and orders documented therein, exceptions below
[2017-03-14 14:40] VITALS: BP 130/83; PULSE 72; O2SAT 96
== END | disposition home or self-care (01) ==
LOC: C.GI 12:38
PROVIDERS: ATTEND Internal Medicine
DX: R10.13 Epigastric pain (principal); E11.9 Type 2 diabetes mellitus without complications; E78.00 Pure hypercholesterolemia, unspecified; I10 Essential (primary) hypertension; I51.9 Heart disease, unspecified; Z87.891 Personal history of nicotine dependence; Z95.1 Presence of aortocoronary bypass graft; Z79.82 Long term (current) use of aspirin

== ENCOUNTER → 2017-03-21 | Outpatient (CLI) | payer BC ==
[~2017-03-21] MED LIST changes: -ACET1TAB84 PO; -FENTANYL CITRATE INJ 50 MCG/1 ML 2 ML VIAL ONE; -LIDOCAINE HCL 2% 2 ML VIAL (20MG/ML) ONE; -MISCCAP80 PO; -POTASSIUM OTC PO; -PROPOFOL IV EMULSION 10 MG/ML 20 ML VIAL IV ONE; -SUCR1TAB29 PO
[2017-03-21 09:34] LABS: ESTIMATED AVERAGE GLUCOSE 151 mg/dl; HA1C FLAG Normal (Normal)
== END | disposition home or self-care (01) ==
LOC: C.LAB1850 08:30
PROVIDERS: ATTEND Internal Medicine
DX: E78.00 Pure hypercholesterolemia, unspecified (principal)

== ENCOUNTER → 2017-06-03 | Outpatient (CLI) | payer BC ==
[~2017-06-03] MED LIST changes: +ACET1TAB84 PO; +MISCCAP80 PO; +POTASSIUM OTC PO; -SUCR1TAB PO; +SUCR1TAB29 PO
== END | disposition home or self-care (01) ==
LOC: C.RDSM 10:00
PROVIDERS: ATTEND Physical Medicine & Rehabilitation Sports Medicine
DX: M25.561 Pain in right knee (principal)

== ENCOUNTER 2017-07-02 11:18 | Day surgery (SDC) | payer BC ==
[2017-06-12 09:42] VITALS: BMI 39.0
--- NOTE | 2017-06-12 10:28 | PAT Medication Instructions ---
Service Date Jun 12, 2017. Current Home Medication List Acetaminophen (Tylenol Arthritis Ext Rel), 1,300 MG PO PRN Allopurinol (Zyloprim), 300 MG PO QAM Aspirin (Ecotrin Regular Strength), 325 MG PO QPM Ezetimibe (Zetia), 10 MG PO QPM Gemfibrozil (Lopid), 600 MG PO QAM Glipizide (Glipizide Er), 1 TAB PO QAM Indapamide (Lozol), 2.5 MG PO QAM Latanoprost (Xalatan 0.005% Oph Yaquelin), 1 DROPS OPB HS Pantoprazole (Protonix), 40 MG PO NOON Pregabalin (Lyrica), 150 MG PO TID Probiotic Product (Probiotic), 1 TAB PO NOON Spironolactone (Aldactone), 50 MG PO QAM Testosterone (Androgel Pump), 40.5 MG TOP DAILY Zolpidem Tartrate (Ambien), 5 MG PO HS [Potassium Otc], 1 TAB PO PRN [pain pump], INT SPINAL CONTINOUS Medication Instructions For Your Scheduled Surgery - Check with surgeon/publishing manager for instructions: Aspirin (Ecotrin Regular Strength), 325 MG PO QPM - Continue as directed: [pain pump], INT SPINAL CONTINOUS - Hold the following medications 24 hours prior to surgery: Testosterone (Androgel Pump), 40.5 MG TOP DAILY - Hold the following medications the morning of surgery: [Potassium Otc], 1 TAB PO PRN Spironolactone (Aldactone), 50 MG PO QAM Probiotic Product (Probiotic), 1 TAB PO NOON Glipizide (Glipizide Er), 1 TAB PO QAM Indapamide (Lozol), 2.5 MG PO QAM Gemfibrozil (Lopid), 600 MG PO QAM - Take the following medications the morning of surgery with a sip of water: Pregabalin (Lyrica), 150 MG PO TID Pantoprazole (Protonix), 40 MG PO NOON Acetaminophen (Tylenol Arthritis Ext Rel), 1,300 MG PO PRN (if needed) Allopurinol (Zyloprim), 300 MG PO QAM - Take the following medications as scheduled the night before surgery: [Potassium Otc], 1 TAB PO PRN Zolpidem Tartrate (Ambien), 5 MG PO HS Pregabalin (Lyrica), 150 MG PO TID Latanoprost (Xalatan 0.005% Oph Yaquelin), 1 DROPS OPB HS Ezetimibe (Zetia), 10 MG PO QPM Acetaminophen (Tylenol Arthritis Ext Rel), 1,300 MG PO PRN (if needed) If you have any questions please call us at [phone] or [phone] or [phone]
--- NOTE | 2017-06-12 11:24 | DIAGNOSTIC IMAGING REPORT ---
CHEST 2 VIEWS ROUTINE CLINICAL HISTORY: 82 years-old Male presenting with preadmission chest x-ray. TECHNIQUE: PA and lateral views of the chest were obtained. COMPARISON: 02/08/2017. FINDINGS: Median sternotomy wires and mediastinal surgical clips unchanged. Cardiac silhouette normal in size, stable from prior. Right hemidiaphragm elevation, unchanged. No focal opacity. No pleural effusion or pneumothorax. Degenerative changes of the thoracic spine. Upper abdomen normal. IMPRESSION: 1. No acute cardiopulmonary disease. Electronically signed by: Basilio Menchaca M.D. 06/12/2017 11:23 AM Dictated Date/Time: 06/12/2017 11:22 AM
[2017-06-12 11:33] LABS: MEAN CELL VOLUME 98.1 fL (80-100); MEAN CORPUSCULAR HEMOGLOBIN 33.1 pg (25-34); MEAN CORPUSCULAR HGB CONC 33.8 g/dl (32-36); PLATELET COUNT 172 K/uL (130-400); WHITE BLOOD COUNT 16.27 K/uL (4.8-10.8)
[2017-06-12 12:00] LABS: BASO % 0.6 %; COMPLETE YES; IG% 0.8 %; LYMPH % 43.5 %; LYMPH ABS # 7.08 K/uL (1.2-3.4); MONO % 5.2 %; NEUT % 46.9 %
[2017-06-12 12:01] LABS: BUN/CREATININE RATIO 16.3 (10-20); CALCIUM 8.9 mg/dl (8.5-10.1); CREATININE 1.2 mg/dl (0.60-1.40); POTASSIUM 3.8 mmol/L (3.5-5.1)
[2017-06-12 13:38] LABS: URINE APPEARANCE CLEAR (CLEAR); URINE BILIRUBIN NEG (NEG); URINE COLOR YELLOW; URINE NITRITE NEG (NEG); URINE SPECIFIC GRAVITY 1.021 (1.000-1.030); UROBILINOGEN NEG (NEG)
[2017-06-12 13:40] LABS: MANUAL MICROSCOPIC REQUIRED? NO; REVIEW REQ? NO
--- NOTE | 2017-06-17 10:18 | History and Physical ---
History & Physical Date of Service Jun 17, 2017. History & Physical Plan of care discussed with Dr. Agosto CHIEF COMPLAINT: Chronic Lumbago and lower extremity neuropathic pain secondary to lumbar post-laminectomy syndrome HISTORY OF PRESENT ILLNESS: Mr. Wiggins is an 82 year old white male that is well known to the [facility] with a history of chronic lumbago and neuropathic pain into the lower extremities. He does have a history of an L4-S1 laminectomy and fusion. His pain was not adequately controlled with oral narcotics. He did have an intrathecal pump and catheter delivery system implanted in 2010 which has provided significant relief. He is able to perform more activities that he was previously not able to do. Patient is pleased with his currently pain relief. Patient denies any bowel/bladder incontinence, foot drop, saddle anesthesia, or constitutional complaints. PAST MEDICAL HISTORY: 1. Hypertension 2. Hyper cholesterolemia 3. Coronary artery disease 4. Osteoarthritis 5. Sleep apnea 6. Polyneuropathy 7. Lumbar postlaminectomy syndrome 8. History of myocardial infarction 9. Diabetes mellitus, [id number] 10. Gastroesophageal reflux disease PAST SURGICAL HISTORY: 1. History of lumbar spine fusion 2 2. Left foot surgery 3. Triple coronary artery bypass surgery 4. Appendectomy 5. Partial right knee replacement 6. Umbilical hernia repair 7. Bilateral carpal tunnel release 8. Cataract surgery SOCIAL HISTORY: Patient is retired. He is . No tobacco, alcohol, or illicit drug use. ALLERGIES: Adhesives, atorvastatin, cephalosporins, doxycycline, hydrochlorothiazide, iodinated diagnostic agents, levofloxacin, NSAIDs, nifedipine MEDICATIONS: 1. Tylenol arthritis 650 mg 2 tablets by mouth as needed 2. Allopurinol 300 mg daily 3. Aspirin 325 mg daily 4. Zetia 10 mg daily 5. Gemfibrozil 600 mg daily 6. Glipizide 2.5 mg tablet daily 7. Indapamide 1.25 mg daily tablets daily 8. Protonix 40 mg daily 9. Lyrica 150 mg 3 times daily 10. Probiotic 1 tablet daily 11. Spironolactone 50 mg daily 12. Testosterone 40.5 mg topical daily 13. Ambien 5 mg tablet at bedtime REVIEW OF SYSTEMS: Denies any constitutional, cardiac, pulmonary, neurological, GI, , extremity, endocrine, neuro, ENT, dermatological, or musculoskeletal complaints other than stated in HPI PHYSICAL EXAMINATION: VITAL SIGNS: Per admission GENERAL: Mr. Wiggins is an 82 year old white male that appears his stated age. Speech and cognition is intact. Mood and affect is appropriate. Patient does not appear in any acute distress. HEAD: Normocephalic; atraumatic. EYES: EOM intact. ENT: No external ear discharge or lesions. No rhinorrhea or epistaxis. No mucosal lesions. PULM: Clear to auscultation. No wheezes, rales, or rhonchi. CHEST: Regular chest respiration and excursion. ABDOMEN: Intrathecal pump is located in the LLQ. There is no tenderness to palpation. LOWER EXTRMEITIES: There is 5/5 strength of the bilateral lower extremities. Decreased sensation of both feet and ankles. BACK: Well healed surgical incision along the lumbar spine. There is decreased ROM in all planes. Mild tenderness of the lumbosacral region. NEURO: CN II-XII grossly intact with no focal deficits noted. AAO x 3. Gait is slow and widened. SKIN: No lesions, erythema, or rashes noted. ASSESSMENT: Chronic intractable lumbago and neuropathic pain secondary to lumbar post-laminectomy syndrome. TREATMENT: Mr. Wiggins is an 82 year old white male that has an intrathecal pump and catheter delivery system implanted which has been providing significant pain relief. Patient is very pleased with his pain relief results. The patients pump MARSHAL is currently at 6 months and it is recommended that the pump be replaced. Risks and benefits were reviewed with the patient. Procedure was explained and the patient would like to proceed with the surgery.
[~2017-07-02] VITALS: Ht 165.1 cm; Wt 106.3 kg
[~2017-07-02 11:18] MED LIST changes: +ATROPINE SULFATE 0.1 MG/ML 5ML SYR IV PRN; +EpHEDrine SULFATE INJ 50 MG/ML AMP IV PRN; +LACTATED RINGER'S 1000ML 1,000 ML IV SCH; +NORCO 5/325MG HOME PACK PO SCH; +ONDANSETRON INJ 2 MG/ML 2 ML VIAL IV PRN; +PHENYLEPHRINE 100MCG/ML 5ML SYR IV PRN; -SUCR1TAB29 PO; +VANCOMYCIN 1GM/270ML NSS IV SCH
[2017-07-02] MEDS ORDERED: VANCOMYCIN 1GM/270ML NSS IV SCH (12:00)
[2017-07-02 12:01] VITALS: BP 152/86; PULSE 87; TEMP 37; O2SAT 93; Ht 165.1 cm; Wt 106.3 kg
[2017-07-02] MEDS ORDERED: MIDAZOLAM HCL 1 MG/ML 2ML VIAL ONE (12:28)
[2017-07-02] MEDS ORDERED: FENTANYL CITRATE INJ 50 MCG/1 ML 2 ML VIAL ONE ×2 (12:29→13:29)
[2017-07-02] MEDS ORDERED: BUPIVACAINE/EPINEPHRINE 0.25% 1:200,000 30 ML VIAL ONE (12:45)
[2017-07-02] MEDS ORDERED: BACITRACIN 50000 UNIT VIAL ONE (12:46)
[2017-07-02] MEDS ORDERED: NEOMYCIN/POLYMYX/BACITR OINT 15 GM TUBE ONE (12:46)
--- NOTE | 2017-07-02 12:56 | History & Physical Bridge Note ---
H&P Re-Evaluation Bridge Note: I have examined the patient, reviewed the History & Physical and in the interval since the performance of the History & Physical I have noted the following changes of clinical significance: No changes noted
--- NOTE | 2017-07-02 13:00 | Discharge Instructions ---
Discharge Instructions Date of Service Jul 02, 2017. Visit Reason for Visit: End-Of-Life Intrathecal Pain Pump Discharge Discharge Diagnosis / Problem: Pump Change Discharge Goals Goal(s): Decrease discomfort, Improve function Medications Stopped Medications Name(s): none Activity Recommendations Activity Recommendations: no lifting of items 5lbs or more, no repetitive bending, no repetitive twists, no showers for 3 days Anesthesia . Post Anesthesia Instructions: If you have had General Anesthesia or IV Sedation: * Do not drive today. * Resume driving when surgeon permits. * Do not make important decisions or sign legal documents today. * Call surgeon for: * Temperature elevations greater than 101 degrees F. * Uncontrollable pain. * Excessive bleeding. * Persistent nausea and vomiting. * Medication intolerance (nausea, vomiting or rash). * For nausea and vomiting use only clear liquids such as: tea, soda, bouillon until nausea subsides, then gradually increase diet as tolerated. * If you have any concerns or questions, call your surgeon's office. If physician is unavailable and it is an emergency, call 911 or go to the nearest emergency room. . Instructions Instructions / Follow-Up . * Change dressings daily. Apply sterile dry gauze. * Call [facility] [phone] or go to the nearest emergency room if he experience high fevers, new back pain, new neurological symptoms such as numbness or weakness in the lower extremity or new bowel bladder incontinence. Also of call if he experience a headache that is positional. * Wear abdominal binder. * No showers for 3 days. * Resume normal activity. No repetitive bending, twisting or reaching overhead for 2 weeks. Do not lift more than 5 pounds for 2 weeks. . Follow-Up Follow-Up: 1 week in office for wound check, routine office visit in 1/2 weeks Diet Recommendations Home Diet: resume previous diet Pending Studies Studies pending at discharge: no Medical Emergencies . Who to Call and When: Medical Emergencies: If at any time you feel your situation is an emergency, please call 911 immediately. . Non-Emergent Contact Non-Emergency issues call your: Primary Care Provider, Pain Management provider Call Non-Emergent contact if: temperature is above 101.5, wound has increased drainage, wound has increased redness . . "Provider Documentation" section prepared by Jimmie Agosto. . [place] Drug Monitoring Program Search Results: patient reviewed within database, no issues identified
[2017-07-02] MEDS ORDERED: PROPOFOL IV EMULSION 10 MG/ML 20 ML VIAL IV ONE (13:36)
[2017-07-02] MEDS ORDERED: LIDOCAINE HCL 2% 2 ML VIAL (20MG/ML) ONE (13:36)
[2017-07-02] MEDS ORDERED: DEXAMETHASONE SOD INJ 4 MG/ML VIAL ONE (13:36)
[2017-07-02] MEDS ORDERED: ROCURONIUM BROMIDE 10 MG/ML 5 ML VIAL IV ONE (13:36)
[2017-07-02] MEDS ORDERED: ONDANSETRON INJ 2 MG/ML 2 ML VIAL ONE ×2 (13:36→14:31)
[2017-07-02] MEDS ORDERED: HYDROmorphone INJ 2 MG/ML SYR/VIAL ONE ×3 (13:39→14:56)
[2017-07-02] MEDS ORDERED: ESMOLOL HCL 10 MG/ML 10 ML VIAL ONE (14:31)
[2017-07-02] MEDS ORDERED: GLYCOPYRROLATE INJ 0.2 MG/ML VIAL ONE (14:31)
[2017-07-02] MEDS ORDERED: NEOSTIGMINE METHYLSULFATE 5 MG/5 ML SYR ONE (14:31)
[2017-07-02] MEDS ORDERED: METOPROLOL TARTRATE 1 MG/ML VIAL ONE ×4 (14:45→16:21)
--- NOTE | 2017-07-02 14:45 | [facility] Operative Report ---
Operative Report Operative Date Jul 02, 2017. Pre-Operative Diagnosis END OF LIFE OF PAIN PUMP Post-Operative Diagnosis SAME PREOP Procedure(s) Performed REPLACEMENT OF PAIN PUMP Surgeon DR. INGRAM Estimated Blood Loss 10ml Findings See below Specimens REMOVED PAIN PUMP Drains none Anesthesia general endotracheal Complication(s) None Disposition Recovery Room / PACU Description of Procedure INTRATHECAL PUMP REPLACEMENT PROCEDURE PERFORMED: Intrathecal pump replacement PREOPERATIVE DIAGNOSIS: End of life intrathecal pump POSTOPERATIVE DIAGNOSIS: Same. COMPLICATIONS: None. SURGEON: Dr. Marty Ingram. ANESTHESIA: General/endotracheal. MATERIAL FORWARDED TO THE LAB: Explanted pump. EBL: 5 ml IMPLANTED PUMP SIZE: 20 mL. MEDICATIONS PLACED IN THE PUMP: Morphine 15 mg, clonidine 700 g, bupivacaine 2 mg per mL concentration. INDICATIONS: The patient had an end of life pump with less than 1 month prior to system failure, thus requiring replacement. The patient was explained the risks, benefits, alternatives of the procedure and agreed to proceed as above. Informed consent was obtained and witnessed. A time out was performed after the patient was brought into the Operating Room. Antibiotics were given. The patient was then induced with general anesthesia without complications and was placed in the supine. The skin was prepped with DuraPrep and Betadine and draped in sterile fashion. The existing pump was identified and using a scalpel , electro cautery, and blunt dissection, the existing pump was exposed. The four retaining sutures were removed and the old pump was explanted. The catheter was disconnected from the old pump and free flowing CSF was noted. The new pump was opened and prepared according to [employer] standards and was filled with 19 mL of new medication of same type and concentration. The pump catheter was secured to the new pump and secured. The catheter access port was accessed and revealed free flowing CSF. Next, the pocket was irrigated with sterile normal saline with bacitracin. Hemostasis was checked. The new pump was placed into the pocket in the 12 O'clock position. The intrathecal pump was anchored in the pocket with 4-0 Prolene sutures. Both wounds were irrigated with bacitracin-containing normal saline. Both wounds were closed in similar fashion using continuous 0 V lock suture for deeper layer and running 3-0 V lock suture for subcuticular layer. Prineo to the skin. 4 x 4 gauze and pressure dressing was applied to both sites. Abdominal binder was placed. At the conclusion of the procedure, the pump was re-interrogated and reprogrammed to deliver morphine 3.308 mg, clonidine 154.40 g and bupivacaine 0.4411 mg per day. The patient was allowed to emerge from general anesthesia and transported to the recovery room in stable condition uneventfully. The patient will follow up at [facility] pain clinic within 7 days for a wound check and then plan to have the jose removed at day 14. I attest to the content of the Intraoperative Record and any orders documented therein. Any exceptions are noted below.
[2017-07-02] MEDS ORDERED: HydrALAZINE HCL 20 MG/ML VIAL ONE (15:19)
[2017-07-02] MEDS ORDERED: NURSING VERBAL MED ORDER ONE ×5 (15:21→17:45)
[2017-07-02] MEDS: HYDROmorphone INJ 2 MG/ML SYR/VIAL IV PRN ×2 (15:32→15:37)
[2017-07-02] MEDS ORDERED: HYDROmorphone INJ 1 MG/ML SYR ONE (15:33)
[2017-07-02] MEDS ORDERED: METOPROLOL TARTRATE 1 MG/ML VIAL IV STA ×2 (15:50→16:23)
[2017-07-02 16:40] VITALS: BP 155/74; PULSE 101; TEMP 37; O2SAT 95
--- NOTE | 2017-07-02 16:41 | Anesthesiology Progress Note ---
Anesthesia Post Op Note Date & Time Jul 02, 2017 at 16:41 Vital Signs Pain Intensity: 3 Vital Signs Past 12 Hours Date Time Temp Pulse Resp B/P (MAP) Pulse Ox O2 Delivery O2 Flow Rate FiO2 07/02/17 16:30 36.2 95 18 135/88 94 Nasal Cannula 2 07/02/17 16:20 36.2 96 18 156/98 94 Nasal Cannula 2 07/02/17 16:10 93 18 134/98 94 Nasal Cannula 2 07/02/17 16:07 98 149/73 07/02/17 16:00 99 18 147/96 94 Nasal Cannula 2 07/02/17 15:50 105 18 94 Nasal Cannula 2 07/02/17 15:40 102 18 151/108 (75) 94 Nasal Cannula 2 07/02/17 15:30 103 18 165/100 94 Room Air 07/02/17 15:20 100 18 144/108 94 Room Air 07/02/17 15:10 100 18 162/97 94 Room Air 07/02/17 15:00 94 16 160/92 94 Oxymask 10 07/02/17 14:52 93 16 155/89 96 Oxymask 10 07/02/17 14:43 36.2 100 16 161/91 95 Oxymask 10 07/02/17 12:01 37 87 20 152/86 (108) 93 Room Air Notes Mental Status: alert / awake / arousable, participated in evaluation Pt Amnestic to Procedure: Yes Nausea / Vomiting: adequately controlled Pain: adequately controlled Airway Patency, RR, SpO2: stable & adequate BP & HR: stable & adequate, see Notes Hydration State: stable & adequate Anesthetic Complications: no major complications apparent The patient was hypertensive and tachycardic in PACU and was treated with hydralazine and metoprolol.
[2017-07-02 17:10] VITALS: BP 140/73; PULSE 99; O2SAT 95
[2017-07-02 17:40] VITALS: BP 125/69; PULSE 102; O2SAT 93
[2017-07-02] MEDS ORDERED: HYDROCODONE/ACETAMOPHEN 5/325MG TAB PO SCH (18:00)
[2017-07-02 18:20] VITALS: BP 125/69; PULSE 91; O2SAT 93
== END 2017-07-02 18:34 | disposition home or self-care (01) ==
LOC: C.ACU 11:18
PROVIDERS: ATTEND Anesthesiology
DX: Z45.1 Encounter for adjustment and management of infusion pump (principal); G89.29 Other chronic pain; M54.16 Radiculopathy, lumbar region; M96.1 Postlaminectomy syndrome, not elsewhere classified; I25.2 Old myocardial infarction; I25.10 Atherosclerotic heart disease of native coronary artery without angina pectoris; I10 Essential (primary) hypertension; E78.00 Pure hypercholesterolemia, unspecified; E11.9 Type 2 diabetes mellitus without complications; K21.9 Gastro-esophageal reflux disease without esophagitis; G57.30 Lesion of lateral popliteal nerve, unspecified lower limb; M19.90 Unspecified osteoarthritis, unspecified site; Z95.1 Presence of aortocoronary bypass graft; Z98.1 Arthrodesis status; Z79.82 Long term (current) use of aspirin; Z79.899 Other long term (current) drug therapy

== ENCOUNTER → 2017-07-18 | Outpatient (CLI) | payer BC ==
[~2017-07-18] MED LIST changes: -ATROPINE SULFATE 0.1 MG/ML 5ML SYR IV PRN; -EpHEDrine SULFATE INJ 50 MG/ML AMP IV PRN; -LACTATED RINGER'S 1000ML 1,000 ML IV SCH; -NORCO 5/325MG HOME PACK PO SCH; -ONDANSETRON INJ 2 MG/ML 2 ML VIAL IV PRN; -PHENYLEPHRINE 100MCG/ML 5ML SYR IV PRN; -VANCOMYCIN 1GM/270ML NSS IV SCH
[2017-07-18 10:30] LABS: HEMATOCRIT 53.4 % (42-52); MEAN CELL VOLUME 97.4 fL (80-100); MEAN CORPUSCULAR HEMOGLOBIN 32.7 pg (25-34); MEAN CORPUSCULAR HGB CONC 33.5 g/dl (32-36); MEAN PLATELET VOLUME 12.5 fL (7.4-10.4); PLATELET COUNT 160 K/uL (130-400); RED BLOOD COUNT 5.48 M/uL (4.7-6.1); WHITE BLOOD COUNT 14.95 K/uL (4.8-10.8)
[2017-07-18 10:30] LABS: URINE APPEARANCE CLEAR (CLEAR); URINE BILIRUBIN NEG (NEG); URINE COLOR YELLOW; URINE EPITHELIAL CELL AUTO 0-5 /lpf (0-5); URINE NITRITE NEG (NEG); URINE SPECIFIC GRAVITY 1.021 (1.000-1.030); UROBILINOGEN NEG (NEG)
[2017-07-18 10:33] LABS: MANUAL MICROSCOPIC REQUIRED? NO; REVIEW REQ? NO
[2017-07-18 11:03] LABS: ALT/SGPT 24 U/L (12-78); AST/SGOT 17 U/L (15-37); BLOOD UREA NITROGEN 26 mg/dl (7-18); BUN/CREATININE RATIO 19.5 (10-20); CALCIUM 8.5 mg/dl (8.5-10.1); CARBON DIOXIDE 22 mmol/L (21-32); CHLORIDE 107 mmol/L (98-107); CREATININE 1.33 mg/dl (0.60-1.40); GLUCOSE 152 mg/dl (70-99); POTASSIUM 3.8 mmol/L (3.5-5.1); SODIUM 139 mmol/L (136-145)
[2017-07-18 11:07] LABS: COMPLETE YES; LYMPH ABS # 5.68 K/uL (1.2-3.4)
[2017-07-18 11:10] LABS: ESTIMATED AVERAGE GLUCOSE 183 mg/dl; HA1C FLAG Normal (Normal)
[2017-07-18 11:14] LABS: CHOLESTEROL 149 mg/dl (0-200); CHOLESTEROL/HDL RATIO 4.8; HDL CHOLESTEROL 31 mg/dl; LDL CHOLESTEROL CALCULATED 77 mg/dl; TRIGLYCERIDES 206 mg/dl (0-150); VERY LOW DENSITY LIPOPROT CALC 41 mg/dl
== END | disposition home or self-care (01) ==
LOC: C.LAB1850 09:03
PROVIDERS: ATTEND Internal Medicine
DX: E11.9 Type 2 diabetes mellitus without complications (principal)

== ENCOUNTER → 2017-08-30 | Outpatient (CLI) | payer BC ==
[~2017-08-30] MED LIST changes: +PANT1TAB3 PO; -PANT1TAB48 PO
== END | disposition home or self-care (01) ==
LOC: C.LAB1850 12:07
PROVIDERS: ATTEND Internal Medicine
DX: E11.9 Type 2 diabetes mellitus without complications (principal)

== ENCOUNTER → 2017-10-14 | Outpatient (CLI) | payer BC | END | disposition home or self-care (01) | LOC: C.RDSM 12:55 | PROVIDERS: ATTEND Physical Medicine & Rehabilitation Sports Medicine | DX: M17.11 Unilateral primary osteoarthritis, right knee (principal) ==

== ENCOUNTER 2017-10-21 16:12 | Observation (INO) | payer BC ==
[~2017-10-21] VITALS: Ht 165.1 cm; Wt 106.0 kg
[2017-10-21 17:05] LABS: HEMATOCRIT 51.1 % (42-52); HEMOGLOBIN 17.3 g/dL (14.0-18.0); MEAN CORPUSCULAR HEMOGLOBIN 33.5 pg (25-34); MEAN CORPUSCULAR HGB CONC 33.9 g/dl (32-36); MEAN PLATELET VOLUME 11.9 fL (7.4-10.4); PLATELET COUNT 135 K/uL (130-400); RED CELL DISTRIBUTION WIDTH CV 14.3 % (11.5-14.5); RED CELL DISTRIBUTION WIDTH SD 50.7 fL (36.4-46.3); WHITE BLOOD COUNT 25.13 K/uL (4.8-10.8)
--- NOTE | 2017-10-21 17:22 | DIAGNOSTIC IMAGING REPORT ---
CT HEAD WITHOUT CONTRAST (CT) CLINICAL HISTORY: Head trauma. Leg weakness. COMPARISON STUDY: 12/04/2014 TECHNIQUE: Axial CT of the brain is performed from the vertex to the skull base. IV contrast was not administered for this examination. A dose lowering technique was utilized adhering to the principles of ALARA. CT DOSE: 537.48 mGy.cm FINDINGS: No intra or extra-axial mass lesions are visualized. There is no CT evidence of acute cortical infarction. There is no evidence of midline shift. There is no acute hemorrhage. No calvarial fractures are visualized. There are patchy white matter hypodensities likely on a small vessel basis. There is mild ventricular dilatation, likely secondary to volume loss. There is no evidence of acute sinusitis IMPRESSION: No acute intracranial findings Electronically signed by: Juan Jose Atkins M.D. 10/21/2017 5:21 PM Dictated Date/Time: 10/21/2017 5:19 PM
[2017-10-21 17:23] LABS: ALBUMIN 3.8 gm/dl (3.4-5.0); ALT/SGPT 33 U/L (12-78); BLOOD UREA NITROGEN 21 mg/dl (7-18); CALCIUM 8.7 mg/dl (8.5-10.1); CARBON DIOXIDE 25 mmol/L (21-32); CREATININE 1.29 mg/dl (0.60-1.40); GLUCOSE 177 mg/dl (70-99); LIPASE 66 U/L (73-393); POTASSIUM 3.9 mmol/L (3.5-5.1); SODIUM 134 mmol/L (136-145)
[2017-10-21 17:28] LABS: ALKALINE PHOSPHATASE 62 U/L (45-117); AST/SGOT 22 U/L (15-37)
--- NOTE | 2017-10-21 18:09 | DIAGNOSTIC IMAGING REPORT ---
LUMBAR SPINE 2 OR 3 VIEWS CLINICAL HISTORY: Low back pain. Weakness. Trauma. COMPARISON STUDY: 01/05/2015 FINDINGS: There are postsurgical changes present at the L4-S1 levels. There are progressive degenerative changes at the L2-3 and L3-4 levels. There are no acute fractures. A spinal catheter is visualized, the tip of which extends to the T11-12 level. IMPRESSION: 1. Postsurgical change 2. No acute fractures 3. Progressive degenerative changes Electronically signed by: Juan Jose Atkins M.D. 10/21/2017 6:07 PM Dictated Date/Time: 10/21/2017 6:06 PM
--- NOTE | 2017-10-21 18:36 | DIAGNOSTIC IMAGING REPORT ---
CHEST ONE VIEW PORTABLE CLINICAL HISTORY: Weakness. Elevated white count. COMPARISON STUDY: 06/12/2017 FINDINGS: There are postsurgical changes of a midline sternotomy. The heart is borderline enlarged. There is no failure. There are no significant pleural effusions. There is no lobar consolidation. There are equivocal airspace opacities within the right midlung zone.[ IMPRESSION: 1. Equivocal right midlung zone airspace opacities. A minimal pneumonitis cannot be excluded. Clinical and radiographic follow-up is recommended Electronically signed by: Juan Jose Atkins M.D. 10/21/2017 6:35 PM Dictated Date/Time: 10/21/2017 6:33 PM
[2017-10-21] MEDS ORDERED: PIPERACILLIN/TAZOBACTAM 3.375 GM/100ML D5W IV STA (20:20)
[2017-10-21] MEDS ORDERED: PIPERACILL/TAZOBAC IV 3.375 GM in DEXTROSE 5% 100ML IV ONE (20:20)
--- NOTE | 2017-10-21 21:12 | DIAGNOSTIC IMAGING REPORT ---
KUB CLINICAL HISTORY: pain pump position COMPARISON STUDY: No previous studies for comparison. FINDINGS: The study is performed in a portable supine fashion. The examination is limited from a technical standpoint and the entire abdomen is not included on the study. There are postsurgical changes at the L5-S1 level. There is a pain pump with a catheter entering the spine at the L2-3 level. The termination of the catheter is difficult to discern on this study. There is a probable discontinuity in the catheter tubing at the L3 level. There is no pathologic bowel dilatation IMPRESSION: 1. Technically limited portable study 2. Pain pump with a catheter entering the spine at the L2-3 level 3. Probable discontinuity in the catheter tubing at the L3 level. Additional imaging is recommended in follow-up to confirm or refute catheter fracture. Electronically signed by: Juan Jose Atkins M.D. 10/21/2017 9:11 PM Dictated Date/Time: 10/21/2017 9:06 PM
--- NOTE | 2017-10-21 22:22 | DIAGNOSTIC IMAGING REPORT ---
MRI THORACIC SPINE WITHOUT CLINICAL HISTORY: Fever. Elevated white count. Leg weakness. PRIOR STUDIES: None TECHNIQUE: MR scanning of the thoracic spine was performed using multiple pulse sequences. No gadolinium was administered. FINDINGS: There are no suspicious areas of marrow replacement. There are no findings to indicate an acute fracture. No cord lesions are visualized. There are no significant disc herniations. There is no spinal stenosis. No paraspinal masses are visualized. No epidural collections are visualized on this noncontrast study. IMPRESSION: Unremarkable noncontrast MRI of the thoracic spine for age Electronically signed by: Juan Jose Atkins M.D. 10/21/2017 10:21 PM Dictated Date/Time: 10/21/2017 10:18 PM
--- NOTE | 2017-10-21 22:58 | EMERGENCY ROOM VISIT NOTE ---
History Report prepared by Sumanth: Luisa Poole Under the Supervision of: Dr. Maurilio Jordan D.O. First contact with patient: 16:21 Chief Complaint: FALL Stated Complaint: LEG WEAKNESS History of Present Illness The patient is an 82 year old male who presents to the Emergency Room with complaints of persistent bilateral leg weakness starting 2 hours ago. The patient presents to the ED by EMS. He went to the bathroom today when suddenly his legs became very weak. He could move his legs, but he was unable to stand up. His son came to help him up into his walker. The weakness is now improved. He denies any headache, change in vision, difficulty talking, chest pain, SOB, nausea, vomiting, diarrhea, abdominal pain, urinary symptoms, groin numbness, or fever. He is able to have bowel movements. He denies any new lower back pain or numbness. He has a history of neuropathy in his legs. He notes that yesterday he fell backwards while trying to pick something up off the ground. He hit his head on a glass door. The glass did not break. He has not noticed any bumps on his head. He has had multiple lower back surgeries. He has had a pain pump for the past 6 years. The pain pump was replaced 3 months ago. He is on aspirin. Source of History: patient Onset: 2 hours ago Position: leg (bilateral) Quality: other (weakness) Timing: other (persistent) Associated Symptoms: No fevers, No headache, No chest pain, No SOB, No nausea, No vomiting, No abdominal pain, No diarrhea, No urinary symptoms, No numbness Review of Systems See HPI for pertinent positives & negatives. A total of 10 systems reviewed and were otherwise negative. Past Medical & Surgical Medical Problems: (1) CAD (coronary artery disease) (2) Cellulitis and abscess of foot excluding toe (3) Hyperlipidemia (4) Hypertension (5) Itraspinal trial for post laminectomy syndrome (6) Osteoarthritis Family History No significant family history Social History Smoking Status: Former Smoker Drug Use: none Marital Status: Housing Status: lives with significant other Occupation Status: retired Current/Historical Medications Scheduled Acetaminophen (Tylenol Arthritis Ext Rel), 1,300 MG PO PRN Allopurinol (Zyloprim), 300 MG PO QAM Aspirin (Ecotrin Regular Strength), 325 MG PO QPM Ezetimibe (Zetia), 10 MG PO QPM Gemfibrozil (Lopid), 600 MG PO QAM Glipizide (Glipizide Er), 1 TAB PO QAM Indapamide (Lozol), 2.5 MG PO QAM Latanoprost (Xalatan 0.005% Oph [place]), 1 DROPS OPB HS Pantoprazole (Protonix), 40 MG PO NOON Pregabalin (Lyrica), 150 MG PO TID Probiotic Product (Probiotic), 1 TAB PO NOON Spironolactone (Aldactone), 50 MG PO QAM Testosterone (Androgel Pump), 40.5 MG TOP DAILY Zolpidem Tartrate (Ambien), 5 MG PO HS [Potassium Otc], 1 TAB PO PRN [pain pump], INT SPINAL CONTINOUS Allergies Coded Allergies: Hydrochlorothiazide (Verified Allergy, Severe, Hives, 10/21/17) Iodinated Diagnostic Agents (Verified Allergy, Severe, Convulsions, ) Adhesives (Verified Allergy, Intermediate, RASH;PULLS SKIN OFF, 10/21/17) Nifedipine (Verified Allergy, Intermediate, Sick to stomach, 10/21/17) Levofloxacin (Verified Allergy, Mild, HIVES, PRURITIS, 10/21/17) NSAIDs (Verified Allergy, Mild, Elevated BP, 10/21/17) Amiodarone (Verified Allergy, Unknown, RASH, 10/21/17) Cephalexin (Verified Allergy, Unknown, AFTER 14 DAYS-DEVELOPED GASTRITIS- 2017, 10/21/17) Cephalosporins (Verified Adverse Reaction, Intermediate, nausea after repeated dose, 10/21/17) Atorvastatin (Verified Adverse Reaction, Unknown, MUSCLE ACHES, 10/21/17) Doxycycline (Verified Adverse Reaction, Unknown, gi upset, 10/21/17) Physical Exam Vital Signs Date Time Temp Pulse Resp B/P (MAP) Pulse Ox O2 Delivery O2 Flow Rate FiO2 10/21/17 22:52 66 16 132/78 92 Room Air 10/21/17 20:44 75 16 154/81 92 Room Air 10/21/17 18:49 81 16 124/84 92 Room Air 10/21/17 16:37 91 10/21/17 16:18 36.8 91 16 133/77 91 Room Air Physical Exam GENERAL: sitting up in bed, alert, well appearing, well nourished, no distress, non-toxic HEAD: normal cephalic, atraumatic EYE EXAM: normal conjunctiva, PERRL and EOM's grossly intact OROPHARYNX: no exudate, no erythema, lips, buccal mucosa, and tongue normal and mucous membranes are moist EARS: TMs clear b/l NECK: supple, no nuchal rigidity, no adenopathy, non-tender CHEST: stable to compression anteriorly and posteriorly LUNGS: clear to auscultation. Normal chest wall mechanics HEART: no murmurs, S1 normal and S2 normal ABDOMEN: abdomen soft, non-tender, normo-active bowel sounds, no masses, no rebound or guarding. PELVIS: stable to compression anteriorly and posteriorly BACK: Back is symmetrical on inspection and there is no deformity, no midline tenderness, no CVA tenderness. UPPER EXTREMITIES: full active and passive range of motion of all joints without tenderness to palpation. Flexion/extension of shoulder, elbow, wrist, and grasp 5/5 bilaterally. LOWER EXTREMITIES: full active and passive range of motion of all joints without tenderness to palpation. Flexion/extension of hip, knee, ankle and EHL 5 /5 bilaterally. Gross sensation intact. Achilles heel reflex 1/4 bilaterally. Unable to obtain patellar. DP 2/4. NEURO EXAM: Normal sensorium, cranial nerves II-XII grossly intact, normal speech, no gross weakness of arms, no gross weakness of legs. GCS: 15. Medical Decision & Procedures ER Provider Diagnostic Interpretation: MRI LUMBAR SPINE W/O CONTRAST CLINICAL HISTORY: The vertex, elevated white count. Inability to move legs. TECHNIQUE: Sagittal and axial T1, T2 and STIR images were obtained. COMPARISON STUDY: Conventional radiographic study dated 10/21/2017 OBSERVATIONS: There are postsurgical changes of an L4-5 discectomy and interbody fusion. There is posterior pedicle screw fixation at the L4-S1 levels. There is a trabeculated bladder with multiple bladder diverticula. On the manager of medical images, there is a suspected 15 cm right renal cyst. L1-2: There is mild facet joint arthropathy. This results in mild encroachment of the posterior lateral aspect of the thecal sac bilaterally. There is no significant foraminal narrowing. L2-3: There is a circumferential disc bulge with mild to moderate spinal stenosis. There is facet joint arthropathy. There is no significant foraminal narrowing. L3-4: There is a circumferential disc bulge with mild spinal stenosis. There is mild left-sided foraminal narrowing. L4-5: There are postsurgical changes of a discectomy and interbody fusion. There is no significant spinal or foraminal stenosis. L5-S1: Postsurgical changes are present. There are no focal disc herniations. There is no significant spinal stenosis. There is mild left-sided foraminal narrowing. There is a fatty filum terminale. IMPRESSION: 1. Postsurgical changes at the L4-S1 levels 2. Mild to moderate multilevel spondylitic change. With mild to moderate spinal stenosis at the L2-3 level, and mild spinal stenosis at the L3-4 level. There is also mild left-sided foraminal narrowing at the L3-4 and L5-S1 levels. 3. Trabeculated bladder with multiple bladder diverticula 4. Suspected large right renal cyst Electronically signed by: Juan Jose Atkins M.D. 10/21/2017 11:07 PM MRI THORACIC SPINE WITHOUT CLINICAL HISTORY: Fever. Elevated white count. Leg weakness. PRIOR STUDIES: None TECHNIQUE: MR scanning of the thoracic spine was performed using multiple pulse sequences. No gadolinium was administered. FINDINGS: There are no suspicious areas of marrow replacement. There are no findings to indicate an acute fracture. No cord lesions are visualized. There are no significant disc herniations. There is no spinal stenosis. No paraspinal masses are visualized. No epidural collections are visualized on this noncontrast study. IMPRESSION: Unremarkable noncontrast MRI of the thoracic spine for age Electronically signed by: Juan Jose Atkins M.D. 10/21/2017 10:21 PM Dictated Date/Time: 10/21/2017 10:18 PM Xray results as stated below per my and the radiologist's interpretation. Radiology results as stated below per my review and the radiologist's interpretation: CHEST ONE VIEW PORTABLE CLINICAL HISTORY: Weakness. Elevated white count. COMPARISON STUDY: 06/12/2017 FINDINGS: There are postsurgical changes of a midline sternotomy. The heart is borderline enlarged. There is no failure. There are no significant pleural effusions. There is no lobar consolidation. There are equivocal airspace opacities within the right midlung zone.[ IMPRESSION: 1. Equivocal right midlung zone airspace opacities. A minimal pneumonitis cannot be excluded. Clinical and radiographic follow-up is recommended Electronically signed by: Juan Jose Atkins M.D. 10/21/2017 6:35 PM Dictated Date/Time: 10/21/2017 6:33 PM LUMBAR SPINE 2 OR 3 VIEWS CLINICAL HISTORY: Low back pain. Weakness. Trauma. COMPARISON STUDY: 01/05/2015 FINDINGS: There are postsurgical changes present at the L4-S1 levels. There are progressive degenerative changes at the L2-3 and L3-4 levels. There are no acute fractures. A spinal catheter is visualized, the tip of which extends to the T11-12 level. IMPRESSION: 1. Postsurgical change 2. No acute fractures 3. Progressive degenerative changes Electronically signed by: Juan Jose Atkins M.D. 10/21/2017 6:07 PM Dictated Date/Time: 10/21/2017 6:06 PM KUB CLINICAL HISTORY: pain pump position COMPARISON STUDY: No previous studies for comparison. FINDINGS: The study is performed in a portable supine fashion. The examination is limited from a technical standpoint and the entire abdomen is not included on the study. There are postsurgical changes at the L5-S1 level. There is a pain pump with a catheter entering the spine at the L2-3 level. The termination of the catheter is difficult to discern on this study. There is a probable discontinuity in the catheter tubing at the L3 level. There is no pathologic bowel dilatation IMPRESSION: 1. Technically limited portable study 2. Pain pump with a catheter entering the spine at the L2-3 level 3. Probable discontinuity in the catheter tubing at the L3 level. Additional imaging is recommended in follow-up to confirm or refute catheter fracture. Electronically signed by: Juan Jose Atkins M.D. 10/21/2017 9:11 PM Dictated Date/Time: 10/21/2017 9:[address] HEAD WITHOUT CONTRAST (CT) CLINICAL HISTORY: Head trauma. Leg weakness. COMPARISON STUDY: 12/04/2014 TECHNIQUE: Axial CT of the brain is performed from the vertex to the skull base. IV contrast was not administered for this examination. A dose lowering technique was utilized adhering to the principles of ALARA. CT DOSE: 537.48 mGy.cm FINDINGS: No intra or extra-axial mass lesions are visualized. There is no CT evidence of acute cortical infarction. There is no evidence of midline shift. There is no acute hemorrhage. No calvarial fractures are visualized. There are patchy white matter hypodensities likely on a small vessel basis. There is mild ventricular dilatation, likely secondary to volume loss. There is no evidence of acute sinusitis IMPRESSION: No acute intracranial findings Electronically signed by: Juan Jose Atkins M.D. 10/21/2017 5:21 PM Dictated Date/Time: 10/21/2017 5:19 PM Laboratory Results 10/21/17 16:57 Red Blood Count 5.16, Mean Corpuscular Volume 99.0, Mean Corpuscular Hemoglobin 33.5, Mean Corpuscular Hemoglobin Concent 33.9, Mean Platelet Volume 11.9 10/21/17 16:57 Test 10/21/17 16:57 10/21/17 19:08 White Blood Count 25.13 K/uL (4.8-10.8) Red Blood Count 5.16 M/uL (4.7-6.1) Hemoglobin 17.3 g/dL (14.0-18.0) Hematocrit 51.1 % (42-52) Mean Corpuscular Volume 99.0 fL (80-100) Mean Corpuscular Hemoglobin 33.5 pg (25-34) Mean Corpuscular Hemoglobin Concent 33.9 g/dl (32-36) Platelet Count 135 K/uL (130-400) Mean Platelet Volume 11.9 fL (7.4-10.4) RDW Standard Deviation 50.7 fL (36.4-46.3) RDW Coefficient of Variation 14.3 % (11.5-14.5) Neutrophils % (Manual) 66.6 % Lymphocytes % (Manual) 27.2 % Monocytes % (Manual) 5.3 % Myelocytes % 0.9 % Neutrophils # (Manual) 16.74 K/uL (1.4-6.5) Total Absolute Neutrophils 16.74 K/uL (1.4-6.5) Lymphocytes # (Manual) 6.84 K/uL (1.2-3.4) Total Absolute Lymphocytes 6.84 K/uL (1.2-3.4) Monocytes # (Manual) 1.33 K/uL (0.11-0.59) Myelocytes # 0.23 K/uL (0-0) Smudge Cells PRESENT Anion Gap 10.0 mmol/L (3-11) Est Creatinine Clear Calc Drug Dose 50.2 ml/min Estimated GFR () 59.4 Estimated GFR (Non- 51.3 BUN/Creatinine Ratio 16.4 (10-20) Calcium Level 8.7 mg/dl (8.5-10.1) Total Bilirubin 0.8 mg/dl (0.2-1) Direct Bilirubin 0.2 mg/dl (0-0.2) Aspartate Amino Transf (AST/SGOT) 22 U/L (15-37) Alanine Aminotransferase (ALT/SGPT) 33 U/L (12-78) Alkaline Phosphatase 62 U/L (45-117) Troponin I < 0.015 ng/ml (0-0.045) Total Protein 7.0 gm/dl (6.4-8.2) Albumin 3.8 gm/dl (3.4-5.0) Lipase 66 U/L (73-393) Urine Color YELLOW Urine Appearance CLEAR (CLEAR) Urine pH 5.0 (4.5-7.5) Urine Specific [place] 1.015 (1.000-1.030) Urine Protein NEG (NEG) Urine Glucose (UA) NEG (NEG) Urine Ketones NEG (NEG) Urine Occult Blood 2+ (NEG) Urine Nitrite NEG (NEG) Urine Bilirubin NEG (NEG) Urine Urobilinogen NEG (NEG) Urine Leukocyte Esterase TRACE (NEG) Urine WBC (Auto) 1-5 /hpf (0-5) Urine RBC (Auto) >30 /hpf (0-4) Urine Hyaline Casts (Auto) 1-5 /lpf (0-5) Urine Epithelial Cells (Auto) >30 /lpf (0-5) Urine Bacteria (Auto) NEG (NEG) Urine Renal Epithelial Cells 0-5 /lpf (0-5) Laboratory results per my review. Medications Administered Medications (Trade) Dose Ordered Sig/[place] Route Start Time Stop Time Status Last Admin Dose Admin Piperacillin Sod/ Tazobactam Sod 3.375 gm/Dextrose 115 ml @ 230 mls/hr 2020 ONCE IV 10/21/17 20:20 10/21/17 20:49 DC 10/21/17 20:43 230 MLS/HR ECG Indication: weakness Rate (beats per minute): 86 Rhythm: sinus rhythm Findings: Q waves (Inferior), RBBB (incomplete) Change: Patient's electrocardiogram interpreted by me. ED Course ED COURSE: Vital signs were reviewed and showed normal vitals. The patients medical record was reviewed The above diagnostic studies were performed and reviewed. ED treatments and interventions as stated above. 1624: The patient was evaluated in room B7. A complete history and physical examination was performed. 1937: I reevaluated the patient. I updated him on the results. 1955: I discussed the patient's case with Dr. Del Rio, [facility] pain management. She says the patient is good to go for MRI. 2019: Piperacillin Sod/Tazobactam Sod 3.375 gm/Dextrose 115 ml @ 230 mls/hr IV. 2239: Upon reevaluation, the patient is resting comfortably. I discussed my findings with the patient and he understands and agrees with the treatment plan. Based on the patients age, coexisting illnesses, exam and lab findings the decision to treat as an inpatient was made. The patient remained stable while under my care. The patient will be evaluated for further management. 2244: I reviewed the patient's case [place] Momin, [facility] [place] He will evaluate the patient for further management. Medical Decision Differential diagnoses include major intracranial, cervical, spinal, thoracic, abdominal, pelvic and neurologic injury. Fracture, contusion, sprain, strain, laceration, abrasions included as well. Patient is an 82-year-old male who presents to ER for initial bilateral lower extremity weakness and unable to ambulate. Trauma yesterday where he fell and hit head. No BROCK or neck pain. Chronic lower back pain. Labs were obtained and show a leukocytosis of 25,000. BMP, LFTs, bilirubin and troponin were negative. Lipase was normal. UA was unremarkable. CT head was negative. X- rays of lumbar spine were unremarkable. Due to his leukocytosis, MRI of the thoracic and lumbar spine was obtained with his lower back pain. Thoracic spine was unremarkable along with lumbar spine. He does have a spinal pain pump w/ KUB confirming the location. Tomorrow he will need to have this evaluated by anesthesia to make sure the intrathecal pump is working properly following MRI. Chest x-ray does support a right mid lung zone opacities which is suggesting a pneumonitis. He has had a little cough. Patient was covered with broad-spectrum antibiotics. He was given fluids. With his leukocytosis and chest x-ray showing a pneumonitis, did discuss case with internal medicine. If his allergies he was given Zosyn and azithromycin to cover atypicals. Patient was updated bedside. He will be observed overnight and will need to be evaluated by pain management to interrogate the intrathecal pump to make sure it still working tomorrow after/following the MRI. Head Trauma GCS Score: 15 Medication Reconcilliation Current Medication List: was personally reviewed by me Blood Pressure Screening Patient's blood pressure: Normal blood pressure Blood pressure disposition: Did not require urgent referral Consults Time Called: 1949 Consulting Physician: Dr. Del Rio, [facility] pain management Returned Call: 1955 I discussed the patient's case with her. She says the patient is good to go for MRI. Additional Consults: Time Called: 2314 Consulted Physician: Dr. Momin, [facility] [place] Returned Call: 2314 Additional Comments: I reviewed the patient's case with him. He will evaluate the patient for further management. Impression Primary Impression: Bilateral leg weakness Additional Impressions: Pneumonia Leukocytosis Scribe Attestation The scribe's documentation has been prepared under my direction and personally reviewed by me in its entirety. I confirm that the note above accurately reflects all work, treatment, procedures, and medical decision making performed by me. Departure Information Dispostion Being Evaluated By Hospitalist Referrals Miles Neil M.D. (PCP) Patient Instructions My [facility] Health Problem Qualifiers Additional Impressions: Pneumonia Pneumonia type: due to unspecified organism Laterality: unspecified laterality Lung location: unspecified part of lung Qualified Codes: J18.9 - Pneumonia, unspecified organism Leukocytosis Leukocytosis type: unspecified Qualified Codes: D72.829 - Elevated white blood cell count, unspecified
--- NOTE | 2017-10-21 23:08 | DIAGNOSTIC IMAGING REPORT ---
MRI LUMBAR SPINE W/O CONTRAST CLINICAL HISTORY: The vertex, elevated white count. Inability to move legs. TECHNIQUE: Sagittal and axial T1, T2 and STIR images were obtained. COMPARISON STUDY: Conventional radiographic study dated 10/21/2017 OBSERVATIONS: There are postsurgical changes of an L4-5 discectomy and interbody fusion. There is posterior pedicle screw fixation at the L4-S1 levels. There is a trabeculated bladder with multiple bladder diverticula. On the hat brim curler images, there is a suspected 15 cm right renal cyst. L1-2: There is mild facet joint arthropathy. This results in mild encroachment of the posterior lateral aspect of the thecal sac bilaterally. There is no significant foraminal narrowing. L2-3: There is a circumferential disc bulge with mild to moderate spinal stenosis. There is facet joint arthropathy. There is no significant foraminal narrowing. L3-4: There is a circumferential disc bulge with mild spinal stenosis. There is mild left-sided foraminal narrowing. L4-5: There are postsurgical changes of a discectomy and interbody fusion. There is no significant spinal or foraminal stenosis. L5-S1: Postsurgical changes are present. There are no focal disc herniations. There is no significant spinal stenosis. There is mild left-sided foraminal narrowing. There is a fatty filum terminale. IMPRESSION: 1. Postsurgical changes at the L4-S1 levels 2. Mild to moderate multilevel spondylitic change. With mild to moderate spinal stenosis at the L2-3 level, and mild spinal stenosis at the L3-4 level. There is also mild left-sided foraminal narrowing at the L3-4 and L5-S1 levels. 3. Trabeculated bladder with multiple bladder diverticula 4. Suspected large right renal cyst Electronically signed by: Juan Jose Atkins M.D. 10/21/2017 11:07 PM Dictated Date/Time: 10/21/2017 11:00 PM
[2017-10-21] MEDS ORDERED: AZITHROMYCIN 250 MG TAB PO STA (23:13)
--- NOTE | 2017-10-22 02:48 | History and Physical ---
History & Physical Date & Time of Service: Oct 22, 2017 at 02:24 Chief Complaint: Leg Weakness Primary Care Physician: Miles eNil M.D. History of Present Illness Source: patient 81 y/o M w/Hx DM, CAD, chronic back pain, LE neuropathy presents to ED with complaints of weakness. He was in the bathroom and voided, and suddenly felt bilateral leg weakness. Patient lowered himself to the ground, and was unable to get back up. and son couldn't get him up from supine position. No fecal incontinence. Denies saddle paresthesias or numbness and tingling in the extremities. Head trauma the day prior while leaning over to mixing picker tender stray peanut on ground and lost his balance and hit his head on glass door and ended up on the ground. helped him up patient did not feel excessively weak then. Has felt progressive weakness over last year, despite exercise on recombinant bike - although hasn't ridden it in past weak. Patient does not feel the weakness currently. Ambulates with walker/cane and has a scooter for long outings, although ambulates independently at home. H/o 3-4 surgeries on the back and was transitioned to pain pump for better pain control. Denies worsening back pain symptoms currently, and states he has ongoing relief still. No URTI symptoms, no fever/chills, CP, palpitations, dyspnea. No exertional symptoms. He otherwise denies headaches, abdominal pain, lower extremity swelling or rashes. He is tolerating diet without nausea or vomiting, and voiding and stooling appropriately. ROS is unremarkable except as noted above. Labs/imaging in ED is concerning for possible PNA and potential discontinuity in intrathecal catheter Past Medical/Surgical History PAST MEDICAL HISTORY: 1. Hypertension 2. Hyper cholesterolemia 3. Coronary artery disease 4. Osteoarthritis 5. Sleep apnea 6. Polyneuropathy 7. Lumbar postlaminectomy syndrome 8. History of myocardial infarction 9. Diabetes mellitus, [id number] 10. Gastroesophageal reflux disease PAST SURGICAL HISTORY: 1. History of lumbar spine fusion 2 2. Left foot surgery 3. Triple coronary artery bypass surgery 4. Appendectomy 5. Partial right knee replacement 6. Umbilical hernia repair 7. Bilateral carpal tunnel release 8. Cataract surgery Family History No significant family history Non contributory Social History Smoking Status: Former Smoker Smokeless Tobacco Use: No Drug Use: none Marital Status: Occupational Status: retired Immunizations History of Influenza Vaccine: Yes Influenza Vaccine Date: Jul 10, 2010 History of Tetanus Vaccine?: No Tetanus Immunization Date: Jan 11, 1998 History of Pneumococcal: Yes Pneumococcal Date: Apr 09, 2007 History of Hepatitis B Vaccine: No Multi-Drug Resistant Organisms History of MDRO: No Allergies Coded Allergies: Hydrochlorothiazide (Verified Allergy, Severe, Hives, 10/21/17) Iodinated Diagnostic Agents (Verified Allergy, Severe, Convulsions, ) Adhesives (Verified Allergy, Intermediate, RASH;PULLS SKIN OFF, 10/21/17) Nifedipine (Verified Allergy, Intermediate, Sick to stomach, 10/21/17) Levofloxacin (Verified Allergy, Mild, HIVES, PRURITIS, 10/21/17) NSAIDs (Verified Allergy, Mild, Elevated BP, 10/21/17) Amiodarone (Verified Allergy, Unknown, RASH, 10/21/17) Cephalexin (Verified Allergy, Unknown, AFTER 14 DAYS-DEVELOPED GASTRITIS- 2016, 10/21/17) Cephalosporins (Verified Adverse Reaction, Intermediate, nausea after repeated dose, 10/21/17) Atorvastatin (Verified Adverse Reaction, Unknown, MUSCLE ACHES, 10/21/17) Doxycycline (Verified Adverse Reaction, Unknown, gi upset, 10/21/17) Home Medications Scheduled Acetaminophen (Tylenol Arthritis Ext Rel), 1,300 MG PO PRN Allopurinol (Zyloprim), 300 MG PO QAM Aspirin (Ecotrin Regular Strength), 325 MG PO QPM Ezetimibe (Zetia), 10 MG PO QPM Gemfibrozil (Lopid), 600 MG PO QAM Glipizide (Glipizide Er), 1 TAB PO QAM Indapamide (Lozol), 2.5 MG PO QAM Latanoprost (Xalatan 0.005% Oph [place]), 1 DROPS OPB HS Pantoprazole (Protonix), 40 MG PO NOON Pregabalin (Lyrica), 150 MG PO TID Probiotic Product (Probiotic), 1 TAB PO NOON Spironolactone (Aldactone), 50 MG PO QAM Testosterone (Androgel Pump), 40.5 MG TOP DAILY Zolpidem Tartrate (Ambien), 5 MG PO HS [Potassium Otc], 1 TAB PO PRN [pain pump], INT SPINAL CONTINOUS Physical Exam Vital Signs Date Time Temp Pulse Resp B/P (MAP) Pulse Ox O2 Delivery O2 Flow Rate FiO2 10/22/17 00:53 88 16 127/84 92 Room Air 10/22/17 00:11 89 10/21/17 22:52 66 16 132/78 92 Room Air 10/21/17 20:44 75 16 154/81 92 Room Air 10/21/17 18:49 81 16 124/84 92 Room Air 10/21/17 16:37 91 10/21/17 16:18 36.8 91 16 133/77 91 Room Air General Appearance: WD/WN, no apparent distress Head: normocephalic, atraumatic Eyes: normal inspection ENT: hearing grossly normal, pharynx normal, + pertinent finding (moist mucous membranes) Neck: supple, no adenopathy Respiratory/Chest: normal breath sounds, no respiratory distress, no accessory muscle use Cardiovascular: regular rate, rhythm, normal peripheral pulses, + systolic murmur Abdomen/GI: normal bowel sounds, non tender, soft, + pertinent finding ( umbilical hernia, pump palpable on LLQ under skin) Back: normal inspection, no CVA tenderness, no muscle spasm Extremities/Musculoskelatal: no calf tenderness, normal capillary refill, no pedal edema Neurologic/Psych: machine preservative filler II-XII nml as tested, no motor/sensory deficits ( Extremities 5/5 strength), alert, normal mood/affect, oriented x 3 Skin: normal color, warm/dry, no rash Diagnostics Laboratory Results Results Past 24 Hours Test 10/21/17 16:57 10/21/17 19:08 Range/Units White Blood Count 25.13 4.8-10.8 K/uL Red Blood Count 5.16 4.7-6.1 M/uL Hemoglobin 17.3 14.0-18.0 g/dL Hematocrit 51.1 42-52 % Mean Corpuscular Volume 99.0 80-100 fL Mean Corpuscular Hemoglobin 33.5 25-34 pg Mean Corpuscular Hemoglobin Concent 33.9 32-36 g/dl Platelet Count 135 130-400 K/uL Mean Platelet Volume 11.9 7.4-10.4 fL RDW Standard Deviation 50.7 36.4-46.3 fL RDW Coefficient of Variation 14.3 11.5-14.5 % Neutrophils % (Manual) 66.6 % Lymphocytes % (Manual) 27.2 % Monocytes % (Manual) 5.3 % Myelocytes % 0.9 % Neutrophils # (Manual) 16.74 1.4-6.5 K/uL Total Absolute Neutrophils 16.74 1.4-6.5 K/uL Lymphocytes # (Manual) 6.84 1.2-3.4 K/uL Total Absolute Lymphocytes 6.84 1.2-3.4 K/uL Monocytes # (Manual) 1.33 0.11-0.59 K/uL Myelocytes # 0.23 0-0 K/uL Smudge Cells PRESENT Sodium Level 134 136-145 mmol/L Potassium Level 3.9 3.5-5.1 mmol/L Chloride Level 99 98-107 mmol/L Carbon Dioxide Level 25 21-32 mmol/L Anion Gap 10.0 3-11 mmol/L Blood Urea Nitrogen 21 7-18 mg/dl Creatinine 1.29 0.60-1.40 mg/dl Est Creatinine Clear Calc Drug Dose 50.2 ml/min Estimated GFR () 59.4 Estimated GFR (Non- 51.3 BUN/Creatinine Ratio 16.4 10-20 Random Glucose 177 70-99 mg/dl Calcium Level 8.7 8.5-10.1 mg/dl Total Bilirubin 0.8 0.2-1 mg/dl Direct Bilirubin 0.2 0-0.2 mg/dl Aspartate Amino Transf (AST/SGOT) 22 15-37 U/L Alanine Aminotransferase (ALT/SGPT) 33 12-78 U/L Alkaline Phosphatase 62 45-117 U/L Troponin I < 0.015 0-0.045 ng/ml Total Protein 7.0 6.4-8.2 gm/dl Albumin 3.8 3.4-5.0 gm/dl Lipase 66 73-393 U/L Urine Color YELLOW Urine Appearance CLEAR CLEAR Urine pH 5.0 4.5-7.5 Urine Specific [place] 1.015 1.000-1.030 Urine Protein NEG NEG Urine Glucose (UA) NEG NEG Urine Ketones NEG NEG Urine Occult Blood 2+ NEG Urine Nitrite NEG NEG Urine Bilirubin NEG NEG Urine Urobilinogen NEG NEG Urine Leukocyte Esterase TRACE NEG Urine WBC (Auto) 1-5 0-5 /hpf Urine RBC (Auto) >30 0-4 /hpf Urine Hyaline Casts (Auto) 1-5 0-5 /lpf Urine Epithelial Cells (Auto) >30 0-5 /lpf Urine Bacteria (Auto) NEG NEG Urine Renal Epithelial Cells 0-5 0-5 /lpf Diagnostic Radiology LUMBAR SPINE 2 OR 3 VIEWS CLINICAL HISTORY: Low back pain. Weakness. Trauma. COMPARISON STUDY: 01/05/2015 FINDINGS: There are postsurgical changes present at the L4-S1 levels. There are progressive degenerative changes at the L2-3 and L3-4 levels. There are no acute fractures. A spinal catheter is visualized, the tip of which extends to the T11-12 level. IMPRESSION: 1. Postsurgical change 2. No acute fractures 3. Progressive degenerative changes MRI LUMBAR SPINE W/O CONTRAST CLINICAL HISTORY: The vertex, elevated white count. Inability to move legs. TECHNIQUE: Sagittal and axial T1, T2 and STIR images were obtained. COMPARISON STUDY: Conventional radiographic study dated 10/21/2017 OBSERVATIONS: There are postsurgical changes of an L4-5 discectomy and interbody fusion. There is posterior pedicle screw fixation at the L4-S1 levels. There is a trabeculated bladder with multiple bladder diverticula. On the yoga teacher images, there is a suspected 15 cm right renal cyst. L1-2: There is mild facet joint arthropathy. This results in mild encroachment of the posterior lateral aspect of the thecal sac bilaterally. There is no significant foraminal narrowing. L2-3: There is a circumferential disc bulge with mild to moderate spinal stenosis. There is facet joint arthropathy. There is no significant foraminal narrowing. L3-4: There is a circumferential disc bulge with mild spinal stenosis. There is mild left-sided foraminal narrowing. L4-5: There are postsurgical changes of a discectomy and interbody fusion. There is no significant spinal or foraminal stenosis. L5-S1: Postsurgical changes are present. There are no focal disc herniations. There is no significant spinal stenosis. There is mild left-sided foraminal narrowing. There is a fatty filum terminale. IMPRESSION: 1. Postsurgical changes at the L4-S1 levels 2. Mild to moderate multilevel spondylitic change. With mild to moderate spinal stenosis at the L2-3 level, and mild spinal stenosis at the L3-4 level. There is also mild left-sided foraminal narrowing at the L3-4 and L5-S1 levels. 3. Trabeculated bladder with multiple bladder diverticula 4. Suspected large right renal cyst CT HEAD WITHOUT CONTRAST (CT) CLINICAL HISTORY: Head trauma. Leg weakness. COMPARISON STUDY: 12/04/2014 TECHNIQUE: Axial CT of the brain is performed from the vertex to the skull base. IV contrast was not administered for this examination. A dose lowering technique was utilized adhering to the principles of ALARA. CT DOSE: 537.48 mGy.cm FINDINGS: No intra or extra-axial mass lesions are visualized. There is no CT evidence of acute cortical infarction. There is no evidence of midline shift. There is no acute hemorrhage. No calvarial fractures are visualized. There are patchy white matter hypodensities likely on a small vessel basis. There is mild ventricular dilatation, likely secondary to volume loss. There is no evidence of acute sinusitis IMPRESSION: No acute intracranial findings CHEST ONE VIEW PORTABLE CLINICAL HISTORY: Weakness. Elevated white count. COMPARISON STUDY: 06/12/2017 FINDINGS: There are postsurgical changes of a midline sternotomy. The heart is borderline enlarged. There is no failure. There are no significant pleural effusions. There is no lobar consolidation. There are equivocal airspace opacities within the right midlung zone.[ IMPRESSION: 1. Equivocal right midlung zone airspace opacities. A minimal pneumonitis cannot be excluded. Clinical and radiographic follow-up is recommended MRI THORACIC SPINE WITHOUT CLINICAL HISTORY: Fever. Elevated white count. Leg weakness. PRIOR STUDIES: None TECHNIQUE: MR scanning of the thoracic spine was performed using multiple pulse sequences. No gadolinium was administered. FINDINGS: There are no suspicious areas of marrow replacement. There are no findings to indicate an acute fracture. No cord lesions are visualized. There are no significant disc herniations. There is no spinal stenosis. No paraspinal masses are visualized. No epidural collections are visualized on this noncontrast study. IMPRESSION: Unremarkable noncontrast MRI of the thoracic spine for age KUB CLINICAL HISTORY: pain pump position COMPARISON STUDY: No previous studies for comparison. FINDINGS: The study is performed in a portable supine fashion. The examination is limited from a technical standpoint and the entire abdomen is not included on the study. There are postsurgical changes at the L5-S1 level. There is a pain pump with a catheter entering the spine at the L2-3 level. The termination of the catheter is difficult to discern on this study. There is a probable discontinuity in the catheter tubing at the L3 level. There is no pathologic bowel dilatation IMPRESSION: 1. Technically limited portable study 2. Pain pump with a catheter entering the spine at the L2-3 level 3. Probable discontinuity in the catheter tubing at the L3 level. Additional imaging is recommended in follow-up to confirm or refute catheter fracture. EKG Sinus rhythm with 1st degree A-V block Left axis deviation Incomplete right bundle branch block Inferior infarct (cited on or before 24-JUL-2002) Anterior infarct (cited on or before 24-JUL-2002) HR 86, QTc 430 Impression Assessment and Plan 81 y/o M w/Hx DM, CAD, Chronic back pain, LE neuropathy admitted with weakness, possible pulmonary infection and concern for intrathecal pump catheter discontinuation Pneumonitis: CXR: Equivocal right midlung zone airspace opacities. A minimal pneumonitis cannot be excluded. Leukocytosis 25 - IV ABx: zosyn and azithromycin - Trend CBC, check procal Weakness/Fall - Check CPK levels - Orthostatic BP - PT/OT Chronic back pain with ?Probable discontinuity in the catheter tubing at the L3 level of intrathecal pump - Pain management, Dr. Carlos consulted for pump interrogation - Continue pregabalin CAD - HI x 4 s/p CABG x 3 (2001)/HTN.HLD - Continue aspirin, ezetimibe, gemfibrozil, indapamide, spironolactone, DM II - Continue Glipizide GERD - Continue pantoprazole Gout - Continue allopurinol VTE ppx - SCDs FULL CODE Resident Physician Supervision Note: Pt evaluated independently. I discussed the case with the resident and agree with the findings and plan as documented in the note. Any exceptions or clarifications are listed here: 82 y/o M Hx CAD, DM, chronic lower back pain - has a nonfunctioning intrathecal pump, lumbar stenosis. Presented with LE weakness and could not ambulate. He has a high white count on initial labs without clear source of infection although CXR could not exclude R PNM. OE AAO x 3 S1,2 R CTAB NT, ND No CCE LE weakness is present BL P: MRI Lumbar obtained showing degree of stenosis (see MRI result below) - we will request ortho review Due to weakness and possible infiltrate in addition to WBC count of 25, we will treat for presumed PNM No evidence of ACS presently Will place on SS An intrathecal pump is not functioning and can be addressed by ortho or anesthesia as well Lumbar MRI 1. Postsurgical changes at the L4-S1 levels 2. Mild to moderate multilevel spondylitic change. With mild to moderate spinal stenosis at the L2-3 level, and mild spinal stenosis at the L3-4 level. There is also mild left-sided foraminal narrowing at the L3-4 and L5-S1 levels. 3. Trabeculated bladder with multiple bladder diverticula 4. Suspected large right renal cyst Documented By: Alexander Momin Level of Care Med/Surg Advanced Directives Existing Advance Directive: Yes Existing Living Will: Yes Existing Power of Drywall Sprayer: Yes ( and son Mariano) Existing Health Care Proxy: Yes Resuscitation Status FULL RESUSCITATION (unless efforts are futile) VTE Prophylaxis VTE Risk Assessment Done? Y/N: Yes Risk Level: Moderate Resident Tracking Resident Involvement: Resident Care Provided Care Provided: Adult Hospital Medicine
[2017-10-22] MEDS ORDERED: ONDANSETRON INJ 2 MG/ML 2 ML VIAL IV PRN (03:00)
[2017-10-22] MEDS ORDERED: MAGNESIUM HYDROXIDE SUSP 30 ML UDC PO PRN (03:00)
[2017-10-22] MEDS ORDERED: PIPERACILL/TAZOBAC CONSULT ACTIVE PRN (03:00)
[2017-10-22] MEDS ORDERED: ACETAMINOPHEN 325 MG TAB PO PRN (03:00)
[2017-10-22] MEDS ORDERED: POLYETHYLENE (MIRALAX) 17 GM PACK PO PRN (03:00)
[2017-10-22] MEDS ORDERED: ALUMINUM/MAGNESIUM/SIMETH (MAALOX MAX) 30 ML UDC PO PRN (03:00)
[2017-10-22] MEDS ORDERED: SODIUM CHLORIDE 0.9% 1000ML 1,000 ML IV SCH (03:45)
[2017-10-22 04:22] VITALS: BP 162/95; PULSE 71; TEMP 36.6; O2SAT 93; Ht 165.1 cm; Wt 106.0 kg
[2017-10-22] MEDS: INSULIN ASPART 100 UNITS/ML 3 ML PEN SC SCH ×3 (06:00→17:25)
[2017-10-22] MEDS ORDERED: IV FLUIDS COMPLETED PRN (06:00)
[2017-10-22] MEDS: PIPERACILL/TAZOBAC IV 3.375 GM in DEXTROSE 5% 100ML 100 ML IV SCH ×3 (06:10→22:32)
[2017-10-22 06:20] LABS: HEMATOCRIT 51.6 % (42-52); HEMOGLOBIN 17.2 g/dL (14.0-18.0); MEAN CELL VOLUME 99.2 fL (80-100); MEAN CORPUSCULAR HEMOGLOBIN 33.1 pg (25-34); MEAN CORPUSCULAR HGB CONC 33.3 g/dl (32-36); PLATELET COUNT 136 K/uL (130-400); RED CELL DISTRIBUTION WIDTH CV 14.3 % (11.5-14.5); RED CELL DISTRIBUTION WIDTH SD 51.1 fL (36.4-46.3); WHITE BLOOD COUNT 20.91 K/uL (4.8-10.8)
[2017-10-22 06:51] LABS: CALCIUM 8.6 mg/dl (8.5-10.1); CREATININE 1.21 mg/dl (0.60-1.40); POTASSIUM 3.4 mmol/L (3.5-5.1)
[2017-10-22 07:54] VITALS: BP 145/79; PULSE 71; TEMP 36.4; O2SAT 93
[2017-10-22] MEDS ORDERED: POTASSIUM CHLORIDE 10 MEQ TABCR PO STA (08:24)
[2017-10-22] MEDS: INDAPAMIDE 1.25 MG TAB PO SCH (08:52)
[2017-10-22] MEDS: PREGABALIN 150 MG CAP PO SCH ×3 (08:52→20:24)
[2017-10-22] MEDS: SPIRONOLACTONE 25 MG TAB PO SCH (08:52)
[2017-10-22] MEDS: ALLOPURINOL 300 MG TAB PO SCH (08:52)
[2017-10-22] MEDS: PANTOprazole SOD 40 MG TAB PO SCH (08:52)
[2017-10-22] MEDS: GEMFIBROZIL 600 MG TAB PO SCH (08:52)
[2017-10-22 10:00] VITALS: BP_SYST 131; BP_SYST 154; BP_SYST 155; BP_DIAS 79; BP_DIAS 90; BP_DIAS 95
--- NOTE | 2017-10-22 12:12 | Pain Management Consultation ---
Pain Management Consultation Date of Consultation Oct 22, 2017. Reason for Consultation Interrogation of intrathecal pump History Mr. Corcoran is an 82-year-old white female is well-known to the [facility] pain service with history of chronic lumbago and lower extremity neuropathic pain secondary to lumbar postlaminectomy syndrome which has required implantation of an intrathecal pump and catheter delivery system. Patient has had 2 falling episodes over the last 2 days. Yesterday he felt like his legs gave out and he fell down and was unable to get up on his own. Patient did go to the [facility] emergency department for evaluation. Workup did include a lumbar spine MRI. Patient does continue to report adequate pain relief from the intrathecal pump containing morphine, bupivacaine, and clonidine. Patient reports fatigue as he was not able to sleep last night. Case discussed with Dr. Di Del Rio Past Medical: 1. Hypertension 2. Hyper cholesterolemia 3. Coronary artery disease 4. Osteoarthritis 5. Sleep apnea 6. Polyneuropathy 7. Lumbar postlaminectomy syndrome 8. History of myocardial infarction 9. Diabetes mellitus, [id number] 10. Gastroesophageal reflux disease Past Surgical: 1. History of lumbar spine fusion 2 2. Left foot surgery 3. Triple coronary artery bypass surgery 4. Appendectomy 5. Partial right knee replacement 6. Umbilical hernia repair 7. Bilateral carpal tunnel release 8. Cataract surgery Family History No significant family history Social / Work History Smokeless Tobacco Use: No Marital Status: Occupation: retired Allergies Coded Allergies: Hydrochlorothiazide (Verified Allergy, Severe, Hives, 10/21/17) Iodinated Diagnostic Agents (Verified Allergy, Severe, Convulsions, ) Adhesives (Verified Allergy, Intermediate, RASH;PULLS SKIN OFF, 10/21/17) Nifedipine (Verified Allergy, Intermediate, Sick to stomach, 10/21/17) Levofloxacin (Verified Allergy, Mild, HIVES, PRURITIS, 10/21/17) NSAIDs (Verified Allergy, Mild, Elevated BP, 10/21/17) Amiodarone (Verified Allergy, Unknown, RASH, 10/21/17) Cephalexin (Verified Allergy, Unknown, AFTER 14 DAYS-DEVELOPED GASTRITIS- 2017, 10/21/17) Cephalosporins (Verified Adverse Reaction, Intermediate, nausea after repeated dose, 10/21/17) Atorvastatin (Verified Adverse Reaction, Unknown, MUSCLE ACHES, 10/21/17) Doxycycline (Verified Adverse Reaction, Unknown, gi upset, 10/21/17) Medications Current Inpatient Medications Medications (Trade) Dose Ordered Sig/[place] Route Start Time Stop Time Status Last Admin Dose Admin Acetaminophen (Tylenol Tab) 650 mg Q4H PRN PO 10/22/17 03:00 11/21/17 02:59 Al Hydrox/Mg Hydrox/Simethicone (Maalox Max Susp) 15 ml Q4H PRN PO 10/22/17 03:00 11/21/17 02:59 Magnesium Hydroxide (Milk Of Magnesia Susp) 30 ml Q6H PRN PO 10/22/17 03:00 11/21/17 02:59 Polyethylene (Miralax Powder Packet) 17 gm DAILY PRN PO 10/22/17 03:00 11/21/17 02:59 Ondansetron HCl (Zofran Inj) 4 mg Q6H PRN IV 10/22/17 03:00 11/21/17 02:59 10/22/17 06:02 4 MG Allopurinol (Zyloprim Tab) 300 mg QAM PO 10/22/17 09:00 11/21/17 08:59 10/22/17 08:52 300 MG Aspirin (Ecotrin Tab) 325 mg QPM PO 10/22/17 21:00 11/21/17 20:59 EZETIMIBE (Zetia Tab) 10 mg QPM PO 10/22/17 21:00 11/21/17 20:59 Gemfibrozil (Lopid Tab) 600 mg QAM PO 10/22/17 09:00 11/21/17 08:59 10/22/17 08:52 600 MG Indapamide (Lozol Tab) 2.5 mg QAM PO 10/22/17 09:00 11/21/17 08:59 10/22/17 08:52 2.5 MG Latanoprost (Xalatan Oph Soln) 1 drops HS OPB 10/22/17 21:00 11/21/17 20:59 Pantoprazole Sodium (Protonix Tab) 40 mg DAILY PO 10/22/17 09:00 11/21/17 08:59 10/22/17 08:52 40 MG Pregabalin (Lyrica Cap) 150 mg TID PO 1/30/18 09:00 11/21/17 08:59 10/22/17 08:52 150 MG Spironolactone (Aldactone Tab) 50 mg QAM PO 10/22/17 09:00 11/21/17 08:59 10/22/17 08:52 50 MG Zolpidem Tartrate (Ambien Tab) 5 mg HS PO 10/22/17 21:00 11/21/17 20:59 Piperacillin Sod/ Tazobactam Sod 3.375 gm/Dextrose 115 ml @ 28.75 mls/ hr Q8H IV 10/22/17 06:00 10/29/17 05:59 10/22/17 06:10 28.75 MLS/HR Azithromycin 500 mg/Dextrose 255 ml @ 125 mls/hr Q24H IV 10/22/17 20:00 10/25/17 22:03 Miscellaneous Information (Consult) 1 ea UD PRN N/A 10/22/17 03:00 11/21/17 02:59 Sodium Chloride 1,000 ml @ 100 mls/hr Q10H IV 10/22/17 03:45 10/22/17 13:44 10/22/17 06:08 100 MLS/HR Glucagon (Glucagon Inj) 1 mg UD PRN SQ 10/22/17 19:15 11/21/17 19:14 Glucose (Glucose 40% Gel) 15-30 GRAMS 15 GRAMS... UD PRN PO 10/22/17 19:15 11/21/17 19:14 Glucose (Glucose Chew Tab) 4-8 Tablets 4 Tabl... UD PRN PO 10/22/17 19:15 11/21/17 19:14 Insulin Aspart (novoLOG ASPART) SLIDING SCALE If C... Q6 SC 10/22/17 06:00 11/21/17 05:59 Miscellaneous (Iv Fluids Completed) 1 ea PRN PRN N/A 10/22/17 06:00 10/22/18 05:59 Review of Systems Denies any constitutional, cardiac, pulmonary, neurological, GI, , extremity, endocrine, neuro, ENT, dermatological, or musculoskeletal complaints other than stated in HPI Physical Exam Height & Weight: Height 5 feet, 5.00 inches. Weight 106.000 (Kilograms) 233 (Pounds) Last Vital Signs Documentation Date Time Temp Pulse Resp B/P (MAP) Pulse Ox O2 Delivery O2 Flow Rate FiO2 10/22/17 10:00 131/79 (96) 154/90 (111) 155/95 (115) 10/22/17 08:10 Room Air 10/22/17 07:54 36.4 71 18 93 Exam: GENERAL: Mr. Wiggins is an 82 y/o WM that appears his stated age. Speech and cognition is intact. Mood and affect is appropriate. He is accompanied by his . He has a slow wide based guarded gait. BACK: Complete loss of lumbar lordosis. Well healed midline surgical incision over the lumbar spine. Tenderness of the lumbosacral junction. There is decreased ROM in all planes. SKIN: Pump and catheter sites are unremarkable. Cranial nerves are grossly intact. Pump is located in the LLQ. Laboratory Laboratory Results (Last CBC): 10/22/17 06:09 Red Blood Count 5.20, Mean Corpuscular Volume 99.2, Mean Corpuscular Hemoglobin 33.1, Mean Corpuscular Hemoglobin Concent 33.3, Mean Platelet Volume 12.0 H Imaging MRI Findings MRI LUMBAR SPINE W/O CONTRAST CLINICAL HISTORY: The vertex, elevated white count. Inability to move legs. TECHNIQUE: Sagittal and axial T1, T2 and STIR images were obtained. COMPARISON STUDY: Conventional radiographic study dated 10/21/2017 OBSERVATIONS: There are postsurgical changes of an L4-5 discectomy and interbody fusion. There is posterior pedicle screw fixation at the L4-S1 levels. There is a trabeculated bladder with multiple bladder diverticula. On the manufacturing analyst images, there is a suspected 15 cm right renal cyst. L1-2: There is mild facet joint arthropathy. This results in mild encroachment of the posterior lateral aspect of the thecal sac bilaterally. There is no significant foraminal narrowing. L2-3: There is a circumferential disc bulge with mild to moderate spinal stenosis. There is facet joint arthropathy. There is no significant foraminal narrowing. L3-4: There is a circumferential disc bulge with mild spinal stenosis. There is mild left-sided foraminal narrowing. L4-5: There are postsurgical changes of a discectomy and interbody fusion. There is no significant spinal or foraminal stenosis. L5-S1: Postsurgical changes are present. There are no focal disc herniations. There is no significant spinal stenosis. There is mild left-sided foraminal narrowing. There is a fatty filum terminale. IMPRESSION: 1. Postsurgical changes at the L4-S1 levels 2. Mild to moderate multilevel spondylitic change. With mild to moderate spinal stenosis at the L2-3 level, and mild spinal stenosis at the L3-4 level. There is also mild left-sided foraminal narrowing at the L3-4 and L5-S1 levels. 3. Trabeculated bladder with multiple bladder diverticula 4. Suspected large right renal cyst Electronically signed by: Juan Jose Atkins M.D. 10/21/2017 11:07 PM Dictated Date/Time: 10/21/2017 11:00 PM MRI THORACIC SPINE WITHOUT CLINICAL HISTORY: Fever. Elevated white count. Leg weakness. PRIOR STUDIES: None TECHNIQUE: MR scanning of the thoracic spine was performed using multiple pulse sequences. No gadolinium was administered. FINDINGS: There are no suspicious areas of marrow replacement. There are no findings to indicate an acute fracture. No cord lesions are visualized. There are no significant disc herniations. There is no spinal stenosis. No paraspinal masses are visualized. No epidural collections are visualized on this noncontrast study. IMPRESSION: Unremarkable noncontrast MRI of the thoracic spine for age Electronically signed by: Juan Jose Atkins M.D. 10/21/2017 10:21 PM Dictated Date/Time: 10/21/2017 10:[address] HEAD WITHOUT CONTRAST (CT) CLINICAL HISTORY: Head trauma. Leg weakness. COMPARISON STUDY: 12/04/2014 TECHNIQUE: Axial CT of the brain is performed from the vertex to the skull base. IV contrast was not administered for this examination. A dose lowering technique was utilized adhering to the principles of ALARA. CT DOSE: 537.48 mGy.cm FINDINGS: No intra or extra-axial mass lesions are visualized. There is no CT evidence of acute cortical infarction. There is no evidence of midline shift. There is no acute hemorrhage. No calvarial fractures are visualized. There are patchy white matter hypodensities likely on a small vessel basis. There is mild ventricular dilatation, likely secondary to volume loss. There is no evidence of acute sinusitis IMPRESSION: No acute intracranial findings Electronically signed by: Juan Jose Atkins M.D. 10/21/2017 5:21 PM Dictated Date/Time: 10/21/2017 5:19 PM Radiology Findings LUMBAR SPINE 2 OR 3 VIEWS CLINICAL HISTORY: Low back pain. Weakness. Trauma. COMPARISON STUDY: 01/05/2015 FINDINGS: There are postsurgical changes present at the L4-S1 levels. There are progressive degenerative changes at the L2-3 and L3-4 levels. There are no acute fractures. A spinal catheter is visualized, the tip of which extends to the T11-12 level. IMPRESSION: 1. Postsurgical change 2. No acute fractures 3. Progressive degenerative changes Electronically signed by: Juan Jose Atkins M.D. 10/21/2017 6:07 PM Dictated Date/Time: 10/21/2017 6:06 PM KUB CLINICAL HISTORY: pain pump position COMPARISON STUDY: No previous studies for comparison. FINDINGS: The study is performed in a portable supine fashion. The examination is limited from a technical standpoint and the entire abdomen is not included on the study. There are postsurgical changes at the L5-S1 level. There is a pain pump with a catheter entering the spine at the L2-3 level. The termination of the catheter is difficult to discern on this study. There is a probable discontinuity in the catheter tubing at the L3 level. There is no pathologic bowel dilatation IMPRESSION: 1. Technically limited portable study 2. Pain pump with a catheter entering the spine at the L2-3 level 3. Probable discontinuity in the catheter tubing at the L3 level. Additional imaging is recommended in follow-up to confirm or refute catheter fracture. Electronically signed by: Juan Jose Atkins M.D. 10/21/2017 9:11 PM Dictated Date/Time: 10/21/2017 9:06 PM Assessment 1. Lumbago. 2. 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 3. Peripheral neuropathy. 4. Lumbar post-laminectomy syndrome. 5. Multiple falls 6. Leg weakness Recommendations 1. Intrathecal pump was interrogated. Motor stall occurred on 10/21/17 at 23: 06. Motor stall recovery occurred on 10/22/17 at 00:04. 2. There was a question of catheter discontinuity on the KUB imaging. Dr. Di Del Rio has discussed this possible finding with the radiologist and are in agreement that the catheter is intact. Patient does continue to report adequate and unchanged pain relief. We may pursue further imaging/testing on an outpatient basis on the catheter.
--- NOTE | 2017-10-22 12:57 | Orthopedic Consultation ---
Orthopedic Consultation Date of Consultation: Oct 22, 2017. Attending Physician: Zack Harrington MD, PhD Reason for Consultation: chronic back pain Bilateral leg weakness History of Present Illness This is an 82-year-old gentleman who is undergone another 3 or 4 lumbar surgeries at [facility] in [place] last being at least 10 years ago. He has chronic pain and postlaminectomy syndrome that is managed with an intrathecal pain pump management [facility] knee pain [place]. 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 He reports he hit his head. Yesterday though he had another fall and was unable to get up on his own. His was unable to help him therefore they called her son who lives locally who was able to get him up and then they presented to the emergency room for further evaluation. He and his states that by the time they were in the emergency room she is pain was improved. He states his weakness has resolved. He is inlaying the hallways with a walker. He reports at home he uses either a cane or a walker. Denies any numbness in his legs with the exception of his chronic neuropathy that is unchanged. Denies fevers or chills. Denies bowel or bladder changes. He states currently his back pain is at its baseline level of pain. Past Medical/Surgical History Medical Problems: (1) Bilateral leg weakness Status: Acute (2) Cellulitis of foot, left Status: Acute (3) Diabetic nephropathy Status: Acute (4) Leukocytosis Status: Acute (5) Pneumonia Status: Acute (6) Pneumonia Status: Acute (7) Weakness Status: Acute Family History No significant family history Social History Smoking Status: Former Smoker Smokeless Tobacco Use: No Drug Use: none Marital Status: Housing Status: lives with significant other Occupation Status: retired Allergies Coded Allergies: Hydrochlorothiazide (Verified Allergy, Severe, Hives, 10/21/17) Iodinated Diagnostic Agents (Verified Allergy, Severe, Convulsions, ) Adhesives (Verified Allergy, Intermediate, RASH;PULLS SKIN OFF, 10/21/17) Nifedipine (Verified Allergy, Intermediate, Sick to stomach, 10/21/17) Levofloxacin (Verified Allergy, Mild, HIVES, PRURITIS, 10/21/17) NSAIDs (Verified Allergy, Mild, Elevated BP, 10/21/17) Amiodarone (Verified Allergy, Unknown, RASH, 10/21/17) Cephalexin (Verified Allergy, Unknown, AFTER 14 DAYS-DEVELOPED GASTRITIS- 2017, 10/21/17) Cephalosporins (Verified Adverse Reaction, Intermediate, nausea after repeated dose, 10/21/17) Atorvastatin (Verified Adverse Reaction, Unknown, MUSCLE ACHES, 10/21/17) Doxycycline (Verified Adverse Reaction, Unknown, gi upset, 10/21/17) Home Medications Scheduled Acetaminophen (Tylenol Arthritis Ext Rel), 1,300 MG PO PRN Allopurinol (Zyloprim), 300 MG PO QAM Aspirin (Ecotrin Regular Strength), 325 MG PO QPM Ezetimibe (Zetia), 10 MG PO QPM Gemfibrozil (Lopid), 600 MG PO QAM Glipizide (Glipizide Er), 1 TAB PO QAM Indapamide (Lozol), 2.5 MG PO QAM Latanoprost (Xalatan 0.005% Oph Yaquelin), 1 DROPS OPB HS Pantoprazole (Protonix), 40 MG PO NOON Pregabalin (Lyrica), 150 MG PO TID Probiotic Product (Probiotic), 1 TAB PO NOON Spironolactone (Aldactone), 50 MG PO QAM Testosterone (Androgel Pump), 40.5 MG TOP DAILY Zolpidem Tartrate (Ambien), 5 MG PO HS [Potassium Otc], 1 TAB PO PRN [pain pump], INT SPINAL CONTINOUS Current Inpatient Medications Current Inpatient Medications Medications (Trade) Dose Ordered Sig/Beulah Route Start Time Stop Time Status Last Admin Dose Admin Acetaminophen (Tylenol Tab) 650 mg Q4H PRN PO 10/22/17 03:00 11/21/17 02:59 Al Hydrox/Mg Hydrox/Simethicone (Maalox Max Susp) 15 ml Q4H PRN PO 10/22/17 03:00 11/21/17 02:59 Magnesium Hydroxide (Milk Of Magnesia Susp) 30 ml Q6H PRN PO 10/22/17 03:00 11/21/17 02:59 Polyethylene (Miralax Powder Packet) 17 gm DAILY PRN PO 10/22/17 03:00 11/21/17 02:59 Ondansetron HCl (Zofran Inj) 4 mg Q6H PRN IV 10/22/17 03:00 11/21/17 02:59 10/22/17 06:02 4 MG Allopurinol (Zyloprim Tab) 300 mg QAM PO 10/22/17 09:00 11/21/17 08:59 10/22/17 08:52 300 MG Aspirin (Ecotrin Tab) 325 mg QPM PO 10/22/17 21:00 11/21/17 20:59 EZETIMIBE (Zetia Tab) 10 mg QPM PO 10/22/17 21:00 11/21/17 20:59 Gemfibrozil (Lopid Tab) 600 mg QAM PO 10/22/17 09:00 11/21/17 08:59 10/22/17 08:52 600 MG Indapamide (Lozol Tab) 2.5 mg QAM PO 10/22/17 09:00 11/21/17 08:59 10/22/17 08:52 2.5 MG Latanoprost (Xalatan Oph Soln) 1 drops HS OPB 10/22/17 21:00 11/21/17 20:59 Pantoprazole Sodium (Protonix Tab) 40 mg DAILY PO 10/22/17 09:00 11/21/17 08:59 10/22/17 08:52 40 MG Pregabalin (Lyrica Cap) 150 mg TID PO 10/22/17 09:00 11/21/17 08:59 10/22/17 08:52 150 MG Spironolactone (Aldactone Tab) 50 mg QAM PO 10/22/17 09:00 11/21/17 08:59 10/22/17 08:52 50 MG Zolpidem Tartrate (Ambien Tab) 5 mg HS PO 10/22/17 21:00 11/21/17 20:59 Piperacillin Sod/ Tazobactam Sod 3.375 gm/Dextrose 115 ml @ 28.75 mls/ hr Q8H IV 10/22/17 06:00 10/29/17 05:59 10/22/17 06:10 28.75 MLS/HR Azithromycin 500 mg/Dextrose 255 ml @ 125 mls/hr Q24H IV 10/22/17 20:00 10/25/17 22:03 Miscellaneous Information (Consult) 1 ea UD PRN N/A 10/22/17 03:00 11/21/17 02:59 Sodium Chloride 1,000 ml @ 100 mls/hr Q10H IV 10/22/17 03:45 10/22/17 13:44 10/22/17 06:08 100 MLS/HR Glucagon (Glucagon Inj) 1 mg UD PRN SQ 10/22/17 19:15 11/21/17 19:14 Glucose (Glucose 40% Gel) 15-30 GRAMS 15 GRAMS... UD PRN PO 10/22/17 19:15 11/21/17 19:14 Glucose (Glucose Chew Tab) 4-8 Tablets 4 Tabl... UD PRN PO 10/22/17 19:15 11/21/17 19:14 Insulin Aspart (novoLOG ASPART) SLIDING SCALE If C... Q6 SC 10/22/17 06:00 11/21/17 05:59 Miscellaneous (Iv Fluids Completed) 1 ea PRN PRN N/A 10/22/17 06:00 10/22/18 05:59 Review of Systems Constitutional: + weakness Physical Exam Date Time Temp Pulse Resp B/P (MAP) Pulse Ox O2 Delivery O2 Flow Rate FiO2 10/22/17 10:00 131/79 (96) 154/90 (111) 155/95 (115) 10/22/17 08:10 Room Air 10/22/17 07:54 36.4 71 18 145/79 (101) 93 Room Air 10/22/17 04:22 36.6 71 20 162/95 93 Room Air 10/22/17 03:39 36.6 81 16 155/96 94 Room Air 10/22/17 02:50 91 16 167/95 94 Room Air 10/22/17 00:53 88 16 127/84 92 Room Air 10/22/17 00:11 89 10/21/17 22:52 66 16 132/78 92 Room Air 10/21/17 20:44 75 16 154/81 92 Room Air 10/21/17 18:49 81 16 124/84 92 Room Air 10/21/17 16:37 91 10/21/17 16:18 36.8 91 16 133/77 91 Room Air Patient is sitting in a chair in no obvious distress. He is cooperative with exam. He has multiple well-healed lumbar incisions throughout the lower lumbar spine midline. Nontender to palpation at the thoracal lumbar spine and SI joints. Lower extremities: Is negative tension signs bilaterally. Negative Log roll bilaterally. +2 dorsalis pedis bilaterally. Strength is breakaway weakness of her bilateral dorsiflexion but otherwise strength is intact bilaterally. General Appearance: no apparent distress Head: normocephalic Eyes: normal inspection ENT: hearing grossly normal Neck: supple Respiratory/Chest: no respiratory distress Cardiovascular: regular rate, rhythm Abdomen/GI: soft Neurologic/Psych: no motor/sensory deficits, oriented x 3 Skin: warm/dry Lymphatic: no adenopathy Laboratory Results Last 24 Hours Test 10/21/17 16:57 10/21/17 19:08 10/22/17 05:43 10/22/17 06:09 White Blood Count 25.13 K/uL 20.91 K/uL Red Blood Count 5.16 M/uL 5.20 M/uL Hemoglobin 17.3 g/dL 17.2 g/dL Hematocrit 51.1 % 51.6 % Mean Corpuscular Volume 99.0 fL 99.2 fL Mean Corpuscular Hemoglobin 33.5 pg 33.1 pg Mean Corpuscular Hemoglobin Concent 33.9 g/dl 33.3 g/dl Platelet Count 135 K/uL 136 K/uL Mean Platelet Volume 11.9 fL 12.0 fL RDW Standard Deviation 50.7 fL 51.1 fL RDW Coefficient of Variation 14.3 % 14.3 % Neutrophils % (Manual) 66.6 % Lymphocytes % (Manual) 27.2 % Monocytes % (Manual) 5.3 % Myelocytes % 0.9 % Neutrophils # (Manual) 16.74 K/uL Total Absolute Neutrophils 16.74 K/uL Lymphocytes # (Manual) 6.84 K/uL Total Absolute Lymphocytes 6.84 K/uL Monocytes # (Manual) 1.33 K/uL Myelocytes # 0.23 K/uL Smudge Cells PRESENT Sodium Level 134 mmol/L 136 mmol/L Potassium Level 3.9 mmol/L 3.4 mmol/L Chloride Level 99 mmol/L 99 mmol/L Carbon Dioxide Level 25 mmol/L 27 mmol/L Anion Gap 10.0 mmol/L 10.0 mmol/L Blood Urea Nitrogen 21 mg/dl 19 mg/dl Creatinine 1.29 mg/dl 1.21 mg/dl Est Creatinine Clear Calc Drug Dose 50.2 ml/min 52.8 ml/min Estimated GFR () 59.4 64.2 Estimated GFR (Non- 51.3 55.4 BUN/Creatinine Ratio 16.4 15.5 Random Glucose 177 mg/dl 176 mg/dl Calcium Level 8.7 mg/dl 8.6 mg/dl Total Bilirubin 0.8 mg/dl Direct Bilirubin 0.2 mg/dl Aspartate Amino Transf (AST/SGOT) 22 U/L Alanine Aminotransferase (ALT/SGPT) 33 U/L Alkaline Phosphatase 62 U/L Troponin I < 0.015 ng/ml Total Protein 7.0 gm/dl Albumin 3.8 gm/dl Lipase 66 U/L Urine Color YELLOW Urine Appearance CLEAR Urine pH 5.0 Urine Specific Springer 1.015 Urine Protein NEG Urine Glucose (UA) NEG Urine Ketones NEG Urine Occult Blood 2+ Urine Nitrite NEG Urine Bilirubin NEG Urine Urobilinogen NEG Urine Leukocyte Esterase TRACE Urine WBC (Auto) 1-5 /hpf Urine RBC (Auto) >30 /hpf Urine Hyaline Casts (Auto) 1-5 /lpf Urine Epithelial Cells (Auto) >30 /lpf Urine Bacteria (Auto) NEG Urine Renal Epithelial Cells 0-5 /lpf Bedside Glucose 147 mg/dl Blood Smear Review Total Creatine Kinase 145 U/L Procalcitonin 0.06 ng/ml Test 10/22/17 07:24 10/22/17 11:22 Bedside Glucose 170 mg/dl 236 mg/dl Patient Name: SIRISHA RIVAS Unit Number: [id number] Dictated: 10/21/172217 Transcribed: 10/21/172217 ARG Printed Date/Time: [~ rep prt dt]/[~ rep prt tm] [~ rep ct labl] - [~ rep ct ivnm] [facility] [place] [address] Dictated: 10/21/172217 Transcribed: 10/21/172217 ARG Printed Date/Time: [~ rep prt dt]/[~ rep prt tm] [~ rep ct labl] - [~ rep ct ivnm] Patient: SIRISHA RIVAS Address1: [address] [facility] Rec: [id number] Address2: Acct ID: [id number] [facility] Zip: [place] [address] Date: 1935 Sex: M Room/Bed: Ref Phy: Miles Neil M.D. SC: ROSHAN Att Phy: Report #: [id number] Alejandrina Phy: Miles Neil M.D. Test: TWOC Admit Phy: Supervisor Insulation: ROBYN Interpreting Phy: Juan Jose Atkins M.D. Diagnosis: LEG WEAKNESS Ordering Phy: Maurilio Jordan DO Service Date: 10/21/17 Admit Date: 10/21/17 MNE: [id number] CONF: DICTATED BY: Juan Jose Atkins M.D.]] CC: Maurilio Jordan., Miles Florence M.D. Endcc: [~ rep ct add3]] MRI THORACIC SPINE WITHOUT CLINICAL HISTORY: Fever. Elevated white count. Leg weakness. PRIOR STUDIES: None TECHNIQUE: MR scanning of the thoracic spine was performed using multiple pulse sequences. No gadolinium was administered. FINDINGS: There are no suspicious areas of marrow replacement. There are no findings to indicate an acute fracture. No cord lesions are visualized. There are no significant disc herniations. There is no spinal stenosis. No paraspinal masses are visualized. No epidural collections are visualized on this noncontrast study. IMPRESSION: Unremarkable noncontrast MRI of the thoracic spine for age Electronically signed by: Juan Jose Atkins M.D. 10/21/2017 10:21 PM Dictated Date/Time: 10/21/2017 10:18 PM The status of this report is Signed. Draft = Not yet reviewed or approved by Radiologist. Signed = Reviewed and approved by Radiologist. <AttendingPhy></AttendingPhy> <FamilyPhy>Miles Neil M.D.</FamilyPhy> < PrimaryPhy>Miles Neil M.D.</PrimaryPhy> <UnitNumber>[id number]</UnitNumber > <VisitNumber>[id number]</VisitNumber> <PatientName>SIRISHA RIVAS</ PatientName> <DateOfBirth>1935</DateOfBirth> <Location>C.EDB</Location> < ServiceDate>10/21/17</ServiceDate> <MNE>ESINDI</MNE> <OrderingPhy>Maurilio Jordan DO</OrderingPhy> <OrderingPhyMNE>f rep ord dr mauricio</OrderingPhyMNE> < DictatingPhyMNE>f rep dict dr mauricio</DictatingPhyMNE> <CCListMNE>f rep ct mne</ CCListMNE> <AdmittingPhyMNE>f pt admit dr mauricio</AdmittingPhyMNE> <AttendingPhyMNE >f pt attend dr mauricio</AttendingPhyMNE> <ConsultingPhyMNE>f pt consult dr mauricio</ConsultingPhyMNE> <FamilyPhyMNE>f pt fam dr mauricio</FamilyPhyMNE> <OtherPhyMNE>f pt other dr mauricio</OtherPhyMNE> < PrimaryPhyMNE>f pt prim care dr mauricio</PrimaryPhyMNE> <ReferringPhyMNE>f pt referring dr mauricio</ReferringPhyMNE> Patient Name: SIRISHA RIVAS Unit Number: [id number] Dictated: 10/21/172299 Transcribed: 10/21/172299 ARG Printed Date/Time: [~ rep prt dt]/[~ rep prt tm] [~ rep ct labl] - [~ rep ct ivnm] [facility] [place] [address] Dictated: 10/21/172299 Transcribed: 10/21/172299 ARG Printed Date/Time: [~ rep prt dt]/[~ rep prt tm] [~ rep ct labl] - [~ rep ct ivnm] Patient: SIRISHA RIVAS Address1: [address] [facility] Rec: [id number] Address2: Acct ID: [id number] [facility] Zip: [place] [address] Date: 1935 Sex: M Room/Bed: Ref Phy: Miles Neil M.D. SC: ROSHAN Att Phy: Report #: [id number] Alejandrina Phy: Miles Neil M.D. Test: LSWOC Admit Phy: Supervisor Insulation: ROBYN Interpreting Phy: Juan Jose Atkins M.D. Diagnosis: LEG WEAKNESS Ordering Phy: Maurilio Jordan DO Service Date: 10/21/17 Admit Date: 10/21/17 MNE: [id number] CONF: DICTATED BY: Juan Jose Atkins M.D.]] CC: Maurilio Jordan., Miles Florence M.D. Endcc: [~ rep ct add3]] MRI LUMBAR SPINE W/O CONTRAST CLINICAL HISTORY: The vertex, elevated white count. Inability to move legs. TECHNIQUE: Sagittal and axial T1, T2 and STIR images were obtained. COMPARISON STUDY: Conventional radiographic study dated 10/21/2017 OBSERVATIONS: There are postsurgical changes of an L4-5 discectomy and interbody fusion. There is posterior pedicle screw fixation at the L4-S1 levels. There is a trabeculated bladder with multiple bladder diverticula. 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 L1-2: There is mild facet joint arthropathy. This results in mild encroachment of the posterior lateral aspect of the thecal sac bilaterally. There is no significant foraminal narrowing. L2-3: There is a circumferential disc bulge with mild to moderate spinal stenosis. There is facet joint arthropathy. There is no significant foraminal narrowing. L3-4: There is a circumferential disc bulge with mild spinal stenosis. There is mild left-sided foraminal narrowing. L4-5: There are postsurgical changes of a discectomy and interbody fusion. There is no significant spinal or foraminal stenosis. L5-S1: Postsurgical changes are present. There are no focal disc herniations. There is no significant spinal stenosis. There is mild left-sided foraminal narrowing. There is a fatty filum terminale. IMPRESSION: 1. Postsurgical changes at the L4-S1 levels 2. Mild to moderate multilevel spondylitic change. With mild to moderate spinal stenosis at the L2-3 level, and mild spinal stenosis at the L3-4 level. There is also mild left-sided foraminal narrowing at the L3-4 and L5-S1 levels. 3. Trabeculated bladder with multiple bladder diverticula 4. Suspected large right renal cyst Electronically signed by: Juan Jose Atkins M.D. 10/21/2017 11:07 PM Dictated Date/Time: 10/21/2017 11:00 PM The status of this report is Signed. Draft = Not yet reviewed or approved by Radiologist. Signed = Reviewed and approved by Radiologist. <AttendingPhy></AttendingPhy> <FamilyPhy>Miles Neil M.D.</FamilyPhy> < PrimaryPhy>Miles Neil M.D.</PrimaryPhy> <UnitNumber>[id number]</UnitNumber > <VisitNumber>[id number]</VisitNumber> <PatientName>SIRISHA RIVAS</ PatientName> <DateOfBirth>1935</DateOfBirth> <Location>C.EDB</Location> < ServiceDate>10/21/17</ServiceDate> <MNE>ESINDI</MNE> <OrderingPhy>Maurilio Jordan DO</OrderingPhy> <OrderingPhyMNE>f rep ord dr mauricio</OrderingPhyMNE> < DictatingPhyMNE>f rep dict dr mauricio</DictatingPhyMNE> <CCListMNE>f rep ct luly</ CCListMNE> <AdmittingPhyMNE>f pt admit dr mauricio</AdmittingPhyMNE> <AttendingPhyMNE >f pt attend dr mauricio</AttendingPhyMNE> <ConsultingPhyMNE>f pt consult dr mauricio</ConsultingPhyMNE> <FamilyPhyMNE>f pt fam dr mauricio</FamilyPhyMNE> <OtherPhyMNE>f pt other dr mauricio</OtherPhyMNE> < PrimaryPhyMNE>f pt prim care dr mauricio</PrimaryPhyMNE> <ReferringPhyMNE>f pt referring dr mauricio</ReferringPhyMNE> Assessment & Plan Bilateral leg weakness resolved chronic lower back pain with postlaminectomy syndrome. Plan: Patient thoracic and lumbar MRIs were also reviewed by Dr. Evangelista. At this point in time he is back to his baseline level of pain. His bilateral lower extremity weakness has resolved. Would therefore recommend continuing with conservative treatment. Continue with pain management center for his intrathecal pain pump. I do believe he has more significant stenosis of the lumbar spine than his reports state causing neurogenic complaints but overall he is still highly functional and not significantly limited by this. No need for urgent surgical intervention. Continue activity as tolerated. Will sign off.
[2017-10-22 13:00] LABS: BASO % 0.4 %; BASO ABS # 0.08 K/uL (0-0.2); EOS % 0.6 %; EOS ABS # 0.12 K/uL (0-0.5); IG# 0.15 K/uL (0.00-0.02); LYMPH % 30.5 %; LYMPH ABS # 6.37 K/uL (1.2-3.4); MONO % 5.3 %; MONO ABS # 1.11 K/uL (0.11-0.59); NEUT % 62.5 %; NEUT ABS # 13.08 K/uL (1.4-6.5)
[2017-10-22 13:58] LABS: ALBUMIN 3.8 gm/dl (3.4-5.0); CALCIUM 8.7 mg/dl (8.5-10.1); CREATININE 1.3 mg/dl (0.60-1.40); POTASSIUM 4.1 mmol/L (3.5-5.1)
[2017-10-22 14:00] LABS: TOTAL PROTEIN 7.4 gm/dl (6.4-8.2)
--- NOTE | 2017-10-22 14:32 | Progress Note ---
Subjective Date of Service: Oct 22, 2017. Subjective Pt evaluation today including: conversation w/ patient, conversation w/ family , physical exam, chart review, lab review, review of studies, conversation w/ wig sales consultant, review of inpatient medication list Voiding: no voiding problems Pain well controlled, deny fever and chills, occasional cough or sputum, denied dysuria urgency and frequencies, denied any open wound in the skin Problem List Medical Problems: (1) Bilateral leg weakness Status: Acute (2) Cellulitis of foot, left Status: Acute (3) Diabetic nephropathy Status: Acute (4) Leukocytosis Status: Acute (5) Pneumonia Status: Acute (6) Pneumonia Status: Acute (7) Weakness Status: Acute Review of Systems Constitutional: + weakness, + fatigue, No fever, No chills, No sweats, No weight loss, No problem reported Eyes: No worsening of vision, No eye pain, No redness, No discharge, No diplopia ENT: No hearing loss, No unusual epistaxis, No nasal symptoms, No sore throat, No tinnitus, No dental problems, No trouble swallowing Respiratory: + cough, No sputum, No wheezing, No shortness of breath, No dyspnea on exertion, No dyspnea at rest, No hemoptysis Cardiac: No chest pain, No orthopnea, No PND, No edema, No claudication, No palpitations Abdomen: No pain, No nausea, No vomiting, No diarrhea, No constipation Musculoskeletal: No joint pain, No muscle pain, No swelling, No calf pain Male : No dysuria, No urinary frequency, No incontinence, No nocturia more than once/night, No slowing stream, No hematuria Neurologic: No memory loss, No paralysis, No weakness, No numbness/tingling, No vertigo, No balance problems Psychiatric: No depression symptoms, No anhedonism, No anxiety, No insomnia, No substance abuse Heme: No abnormal bleeding/bruising, No clotting problems, No swollen lymph nodes, No night sweats Endo: No fatigue, No excessive thirst, No excessive urination Skin: No rash, No itch, No new/changing skin lesions, No color change, No bleeding Objective Vital Signs Date Time Temp Pulse Resp B/P (MAP) Pulse Ox O2 Delivery O2 Flow Rate FiO2 10/22/17 10:00 131/79 (96) 154/90 (111) 155/95 (115) 10/22/17 08:10 Room Air 1/30/18 07:54 36.4 71 18 145/79 (101) 93 Room Air 10/22/17 04:22 36.6 71 20 162/95 93 Room Air 10/22/17 03:39 36.6 81 16 155/96 94 Room Air 10/22/17 02:50 91 16 167/95 94 Room Air 10/22/17 00:53 88 16 127/84 92 Room Air 10/22/17 00:11 89 10/21/17 22:52 66 16 132/78 92 Room Air 10/21/17 20:44 75 16 154/81 92 Room Air 10/21/17 18:49 81 16 124/84 92 Room Air 10/21/17 16:37 91 10/21/17 16:18 36.8 91 16 133/77 91 Room Air Physical Exam General Appearance: WD/WN, no apparent distress, + obese Eyes: normal inspection, PERRL, EOMI, sclerae normal ENT: normal ENT inspection, hearing grossly normal, pharynx normal Neck: supple, no adenopathy, thyroid normal, no JVD, no carotid bruits, trachea midline Respiratory/Chest: chest non-tender, normal breath sounds, no respiratory distress, no accessory muscle use, + decreased breath sounds Cardiovascular: regular rate, rhythm, no edema, no gallop, no JVD, no murmur Abdomen: normal bowel sounds, non tender, soft, no organomegaly, no pulsatile mass Extremities: normal range of motion, non-tender, normal inspection, no pedal edema, no calf tenderness, normal capillary refill, pelvis stable Neurologic/Psychiatric: plate maker II-XII nml as tested, no motor/sensory deficits, alert, normal mood/affect, oriented x 3 Skin: normal color, warm/dry, no rash Lymphatic: no adenopathy Laboratory Results Last 24 Hours Test 10/21/17 16:57 10/21/17 19:08 10/22/17 05:43 10/22/17 06:09 White Blood Count 25.13 K/uL 20.91 K/uL Red Blood Count 5.16 M/uL 5.20 M/uL Hemoglobin 17.3 g/dL 17.2 g/dL Hematocrit 51.1 % 51.6 % Mean Corpuscular Volume 99.0 fL 99.2 fL Mean Corpuscular Hemoglobin 33.5 pg 33.1 pg Mean Corpuscular Hemoglobin Concent 33.9 g/dl 33.3 g/dl Platelet Count 135 K/uL 136 K/uL Mean Platelet Volume 11.9 fL 12.0 fL RDW Standard Deviation 50.7 fL 51.1 fL RDW Coefficient of Variation 14.3 % 14.3 % Neutrophils % (Manual) 66.6 % Lymphocytes % (Manual) 27.2 % Monocytes % (Manual) 5.3 % Myelocytes % 0.9 % Neutrophils # (Manual) 16.74 K/uL Total Absolute Neutrophils 16.74 K/uL Lymphocytes # (Manual) 6.84 K/uL Total Absolute Lymphocytes 6.84 K/uL Monocytes # (Manual) 1.33 K/uL Myelocytes # 0.23 K/uL Smudge Cells PRESENT Sodium Level 134 mmol/L 136 mmol/L Potassium Level 3.9 mmol/L 3.4 mmol/L Chloride Level 99 mmol/L 99 mmol/L Carbon Dioxide Level 25 mmol/L 27 mmol/L Anion Gap 10.0 mmol/L 10.0 mmol/L Blood Urea Nitrogen 21 mg/dl 19 mg/dl Creatinine 1.29 mg/dl 1.21 mg/dl Est Creatinine Clear Calc Drug Dose 50.2 ml/min 52.8 ml/min Estimated GFR () 59.4 64.2 Estimated GFR (Non- 51.3 55.4 BUN/Creatinine Ratio 16.4 15.5 Random Glucose 177 mg/dl 176 mg/dl Calcium Level 8.7 mg/dl 8.6 mg/dl Total Bilirubin 0.8 mg/dl Direct Bilirubin 0.2 mg/dl Aspartate Amino Transf (AST/SGOT) 22 U/L Alanine Aminotransferase (ALT/SGPT) 33 U/L Alkaline Phosphatase 62 U/L Troponin I < 0.015 ng/ml Total Protein 7.0 gm/dl Albumin 3.8 gm/dl Lipase 66 U/L Urine Color YELLOW Urine Appearance CLEAR Urine pH 5.0 Urine Specific [place] 1.015 Urine Protein NEG Urine Glucose (UA) NEG Urine Ketones NEG Urine Occult Blood 2+ Urine Nitrite NEG Urine Bilirubin NEG Urine Urobilinogen NEG Urine Leukocyte Esterase TRACE Urine WBC (Auto) 1-5 /hpf Urine RBC (Auto) >30 /hpf Urine Hyaline Casts (Auto) 1-5 /lpf Urine Epithelial Cells (Auto) >30 /lpf Urine Bacteria (Auto) NEG Urine Renal Epithelial Cells 0-5 /lpf Bedside Glucose 147 mg/dl Neutrophils (%) (Auto) 62.5 % Lymphocytes (%) (Auto) 30.5 % Monocytes (%) (Auto) 5.3 % Eosinophils (%) (Auto) 0.6 % Basophils (%) (Auto) 0.4 % Neutrophils # (Auto) 13.08 K/uL Lymphocytes # (Auto) 6.37 K/uL Monocytes # (Auto) 1.11 K/uL Eosinophils # (Auto) 0.12 K/uL Basophils # (Auto) 0.08 K/uL Immature Granulocyte % (Auto) 0.7 % Immature Granulocyte # (Auto) 0.15 K/uL Blood Smear Review Total Creatine Kinase 145 U/L Procalcitonin 0.06 ng/ml Test 10/22/17 07:24 10/22/17 11:22 10/22/17 12:59 Bedside Glucose 170 mg/dl 236 mg/dl Erythrocyte Sedimentation Rate 9 mm/hr Sodium Level 134 mmol/L Potassium Level 4.1 mmol/L Chloride Level 99 mmol/L Carbon Dioxide Level 27 mmol/L Anion Gap 8.0 mmol/L Blood Urea Nitrogen 19 mg/dl Creatinine 1.30 mg/dl Est Creatinine Clear Calc Drug Dose 49.1 ml/min Estimated GFR () 58.9 Estimated GFR (Non- 50.8 BUN/Creatinine Ratio 14.4 Random Glucose 198 mg/dl Calcium Level 8.7 mg/dl Total Bilirubin 1.0 mg/dl Aspartate Amino Transf (AST/SGOT) 18 U/L Alanine Aminotransferase (ALT/SGPT) 29 U/L Alkaline Phosphatase 66 U/L Total Protein 7.4 gm/dl Albumin 3.8 gm/dl Globulin 3.6 gm/dl Albumin/Globulin Ratio 1.1 Assessment and Plan 81 y/o M admitted on 10/21/2017 because weakness, possible pulmonary infection and concern for intrathecal pump catheter discontinuation Possible Pneumonitis: Associated with severe leukocytosis Is on IV antibiotic zosyn and azithromycin CXR: Equivocal right midlung zone airspace opacities. A minimal pneumonitis cannot be excluded. Leukocytosis 25 Repeated chest x-ray, follow-up blood culture, check esr, crp and procalcitonin level Weakness/Fall, checked CPK levels were normal, checked Orthostatic BP was negative, fall precaution , continue PT/OT Chronic back pain with possible intrathecal pump malfunction upon admission, pain management saw the patient, no malfunction, pain well controlled CAD - WA x 4 s/p CABG x 3 (2001)/HTN.HLD DM II GERD Gout About condition stable continue current care, check HbA1c, add insulin sliding scale, VTE ppx - SCDs FULL CODE Discussed with patient and answered all questions Continued [facility] stay due to: multiple IV medications needed Discharge planning: home
[2017-10-22 15:13] VITALS: BP 122/80; PULSE 71; TEMP 36.9; O2SAT 91
--- NOTE | 2017-10-22 15:26 | DIAGNOSTIC IMAGING REPORT ---
CHEST 2 VIEWS ROUTINE CLINICAL HISTORY: pneumonitis or pneumonia COMPARISON STUDY: 10/21/2017 FINDINGS: There are postsurgical changes of a midline sternotomy. The previously queried airspace opacity within the right midlung zone is no longer visualized. There is no acute parenchymal consolidation. There is no failure. There are no pleural effusions.[ IMPRESSION: No active disease in the chest. Electronically signed by: Juan Jose Atkins M.D. 10/22/2017 3:25 PM Dictated Date/Time: 10/22/2017 3:25 PM
[2017-10-22] MEDS ORDERED: GLUCOSE 40% GEL 15 GM TUBE PO PRN (19:15)
[2017-10-22] MEDS ORDERED: GLUCOSE 10 TABS/TUBE PO PRN (19:15)
[2017-10-22] MEDS ORDERED: GLUCAGON FOR INJ 1 MG VIAL SQ PRN (19:15)
[2017-10-22] MEDS ORDERED: AZITHROMYCIN IV 500 MG in DEXTROSE 5% 250ML 250 ML IV SCH (20:00)
[2017-10-22] MEDS ORDERED: EZETIMIBE 10MG TAB PO SCH (21:00)
[2017-10-22] MEDS ORDERED: LATANOPROST 0.005% OP SOLN 2.5 ML BTL OPB SCH (21:00)
[2017-10-22] MEDS ORDERED: ASPIRIN 325 MG ECTAB PO SCH (21:00)
[2017-10-22] MEDS ORDERED: ZOLPIDEM TARTRATE 5 MG TAB PO SCH (21:00)
[2017-10-22 23:18] VITALS: BP 139/85; PULSE 85; TEMP 36.8; O2SAT 92
[2017-10-22] MEDS ORDERED: NURSING VERBAL MED ORDER ONE (23:30)
[2017-10-23] MEDS: PIPERACILL/TAZOBAC IV 3.375 GM in DEXTROSE 5% 100ML 100 ML IV SCH ×2 (05:58→14:00)
[2017-10-23 06:33] VITALS: BP_SYST 145; BP_SYST 150; BP_SYST 157; BP_DIAS 82; BP_DIAS 96; BP_DIAS 99; PULSE 77; TEMP 36.5; O2SAT 90
[2017-10-23 07:13] LABS: HEMATOCRIT 49.2 % (42-52); HEMOGLOBIN 16.7 g/dL (14.0-18.0); MEAN CELL VOLUME 98.8 fL (80-100); MEAN CORPUSCULAR HEMOGLOBIN 33.5 pg (25-34); MEAN CORPUSCULAR HGB CONC 33.9 g/dl (32-36); MEAN PLATELET VOLUME 11.6 fL (7.4-10.4); PLATELET COUNT 132 K/uL (130-400); RED CELL DISTRIBUTION WIDTH CV 14.1 % (11.5-14.5); RED CELL DISTRIBUTION WIDTH SD 50.6 fL (36.4-46.3); WHITE BLOOD COUNT 14.28 K/uL (4.8-10.8)
[2017-10-23 07:17] VITALS: BP 115/63; PULSE 69; TEMP 36.8; O2SAT 94
[2017-10-23 07:43] LABS: CALCIUM 8.4 mg/dl (8.5-10.1); CREATININE 1.27 mg/dl (0.60-1.40); POTASSIUM 3.9 mmol/L (3.5-5.1)
[2017-10-23] MEDS: INDAPAMIDE 1.25 MG TAB PO SCH (08:32)
[2017-10-23] MEDS: ALLOPURINOL 300 MG TAB PO SCH (08:32)
[2017-10-23] MEDS: SPIRONOLACTONE 25 MG TAB PO SCH (08:32)
[2017-10-23] MEDS: GEMFIBROZIL 600 MG TAB PO SCH (08:32)
[2017-10-23] MEDS: PANTOprazole SOD 40 MG TAB PO SCH (08:32)
[2017-10-23] MEDS: INSULIN ASPART 100 UNITS/ML 3 ML PEN SC SCH ×2 (08:36→12:22)
[2017-10-23] MEDS: PREGABALIN 150 MG CAP PO SCH ×2 (08:36→14:00)
--- NOTE | 2017-10-23 09:35 | DIAGNOSTIC IMAGING REPORT ---
THORACOLUMBAR RADIOGRAPHS CLINICAL HISTORY: evaluate intrathecal catheter. Include L5 to T10 COMPARISON: KUB and lumbar spine radiographs October 21, 2017. FINDINGS: Intrathecal catheter is in place. The catheter is intact. Catheter enters the canal at the L2-L3 level and tip is at the T11 level. An L4-S1 bilateral pedicle screw fusion is noted with posterior decompression and L4-L5 discectomy with interbody spacer placement. Multilevel disc space narrowing with osteophytosis is noted. Bowel gas pattern is normal. IMPRESSION: 1. Intact intrathecal catheter which enters the canal at the L2-L3 level. Tip at inferior T11 level. 2. Status post L4-L5 discectomy with L4-S1 bilateral pedicle screw fusion. Electronically signed by: Benton Mcgrath M.D. 10/23/2017 9:34 AM Dictated Date/Time: 10/23/2017 9:28 AM
[2017-10-23] MEDS ORDERED: AMOX875T PO ×2 (12:54→12:57)
[2017-10-23] MEDS ORDERED: AZIT-57 PO ×2 (12:54→12:57)
--- NOTE | 2017-10-23 13:00 | Discharge Instructions ---
Discharge Instructions Date of Service Oct 23, 2017. Admission Reason for Admission: Bilateral Leg Weakness Discharge Discharge Diagnosis / Problem: bilateral leg weakness, pneumonitis Discharge Goals Goal(s): Improve function, Improve disease control Activity Recommendations Activity Limitations: resume your previous activity . Instructions / Follow-Up Instructions / Follow-Up Please keep your primary care follow up appt as previously scheduled next week. Current Hospital Diet Patient's current hospital diet: Diabetes Type 2 Diet Discharge Diet Recommended Diet: Diabetes Type 2 Diet Procedures Procedures Performed: Lumbar spine xray KUB Chest xray Thoracic spine MRI Pending Studies Studies pending at discharge: yes List of pending studies: A1c Laboratory Results Hemoglobin A1c Test 10/23/17 06:58 Range/Units Medical Emergencies . Who to Call and When: Medical Emergencies: If at any time you feel your situation is an emergency, please call 911 immediately. . Non-Emergent Contact Non-Emergency issues call your: Primary Care Provider Call Non-Emergent contact if: you have a fever, your pain is not controlled, you have any medication questions . . "Provider Documentation" section prepared by Angela Trujillo. . VTE Core Measure Inpt VTE Proph given/why not?: SCD's
[2017-10-23 13:07] LABS: HEMOGLOBIN A1C 7.4 % (4.5-5.6)
[2017-10-23 13:51] VITALS: BP 115/63; PULSE 69; TEMP 36.8; O2SAT 94
--- NOTE | 2017-10-23 15:18 | Discharge Summary ---
Discharge Summary Date of Service Oct 23, 2017. Discharge Summary Admission Date: Oct 22, 2017 at 03:13 Discharge Date: Oct 23, 2017 Discharge Disposition: Home Principal Diagnosis: Pneumonitis, lower extremity weakness Problems/Secondary Diagnoses: chronic back pain, chronic leukocytosis, DMII, neuropathy Immunizations: Have You Had Influenza Vaccine: Yes Influenza Vaccine Date: Jul 10, 2010 History of Tetanus Vaccine?: No Tetanus Immunization Date: Jan 11, 1998 History of Pneumococcal: Yes Pneumococcal Date: Apr 09, 2007 History of Hepatitis B Vaccine: No Procedures: THORACOLUMBAR RADIOGRAPHS CLINICAL HISTORY: evaluate intrathecal catheter. Include L5 to T10 COMPARISON: KUB and lumbar spine radiographs October 21, 2017. FINDINGS: Intrathecal catheter is in place. The catheter is intact. Catheter enters the canal at the L2-L3 level and tip is at the T11 level. An L4-S1 bilateral pedicle screw fusion is noted with posterior decompression and L4-L5 discectomy with interbody spacer placement. Multilevel disc space narrowing with osteophytosis is noted. Bowel gas pattern is normal. IMPRESSION: 1. Intact intrathecal catheter which enters the canal at the L2-L3 level. Tip at inferior T11 level. 2. Status post L4-L5 discectomy with L4-S1 bilateral pedicle screw fusion. CHEST 2 VIEWS ROUTINE CLINICAL HISTORY: pneumonitis or pneumonia COMPARISON STUDY: 10/21/2017 FINDINGS: There are postsurgical changes of a midline sternotomy. The previously queried airspace opacity within the right midlung zone is no longer visualized. There is no acute parenchymal consolidation. There is no failure. There are no pleural effusions.[ IMPRESSION: No active disease in the chest. KUB CLINICAL HISTORY: pain pump position COMPARISON STUDY: No previous studies for comparison. FINDINGS: The study is performed in a portable supine fashion. The examination is limited from a technical standpoint and the entire abdomen is not included on the study. There are postsurgical changes at the L5-S1 level. There is a pain pump with a catheter entering the spine at the L2-3 level. The termination of the catheter is difficult to discern on this study. There is a probable discontinuity in the catheter tubing at the L3 level. There is no pathologic bowel dilatation IMPRESSION: 1. Technically limited portable study 2. Pain pump with a catheter entering the spine at the L2-3 level 3. Probable discontinuity in the catheter tubing at the L3 level. Additional imaging is recommended in follow-up to confirm or refute catheter fracture. MRI THORACIC SPINE WITHOUT CLINICAL HISTORY: Fever. Elevated white count. Leg weakness. PRIOR STUDIES: None TECHNIQUE: MR scanning of the thoracic spine was performed using multiple pulse sequences. No gadolinium was administered. FINDINGS: There are no suspicious areas of marrow replacement. There are no findings to indicate an acute fracture. No cord lesions are visualized. There are no significant disc herniations. There is no spinal stenosis. No paraspinal masses are visualized. No epidural collections are visualized on this noncontrast study. IMPRESSION: Unremarkable noncontrast MRI of the thoracic spine for age CHEST ONE VIEW PORTABLE CLINICAL HISTORY: Weakness. Elevated white count. COMPARISON STUDY: 06/12/2017 FINDINGS: There are postsurgical changes of a midline sternotomy. The heart is borderline enlarged. There is no failure. There are no significant pleural effusions. There is no lobar consolidation. There are equivocal airspace opacities within the right midlung zone.[ IMPRESSION: 1. Equivocal right midlung zone airspace opacities. A minimal pneumonitis cannot be excluded. Clinical and radiographic follow-up is recommended Electronically signed by: Juan Jose Atkins M.D. 10/21/2017 6:35 PM Dictated Date/Time: 10/21/2017 6:[address] HEAD WITHOUT CONTRAST (CT) CLINICAL HISTORY: Head trauma. Leg weakness. COMPARISON STUDY: 12/04/2014 TECHNIQUE: Axial CT of the brain is performed from the vertex to the skull base. IV contrast was not administered for this examination. A dose lowering technique was utilized adhering to the principles of ALARA. CT DOSE: 537.48 mGy.cm FINDINGS: No intra or extra-axial mass lesions are visualized. There is no CT evidence of acute cortical infarction. There is no evidence of midline shift. There is no acute hemorrhage. No calvarial fractures are visualized. There are patchy white matter hypodensities likely on a small vessel basis. There is mild ventricular dilatation, likely secondary to volume loss. There is no evidence of acute sinusitis IMPRESSION: No acute intracranial findings Electronically signed by: Juan Jose Atkins M.D. 10/21/2017 5:21 PM MRI LUMBAR SPINE W/O CONTRAST CLINICAL HISTORY: The vertex, elevated white count. Inability to move legs. TECHNIQUE: Sagittal and axial T1, T2 and STIR images were obtained. COMPARISON STUDY: Conventional radiographic study dated 10/21/2017 OBSERVATIONS: There are postsurgical changes of an L4-5 discectomy and interbody fusion. There is posterior pedicle screw fixation at the L4-S1 levels. There is a trabeculated bladder with multiple bladder diverticula. 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 L1-2: There is mild facet joint arthropathy. This results in mild encroachment of the posterior lateral aspect of the thecal sac bilaterally. There is no significant foraminal narrowing. L2-3: There is a circumferential disc bulge with mild to moderate spinal stenosis. There is facet joint arthropathy. There is no significant foraminal narrowing. L3-4: There is a circumferential disc bulge with mild spinal stenosis. There is mild left-sided foraminal narrowing. L4-5: There are postsurgical changes of a discectomy and interbody fusion. There is no significant spinal or foraminal stenosis. L5-S1: Postsurgical changes are present. There are no focal disc herniations. There is no significant spinal stenosis. There is mild left-sided foraminal narrowing. There is a fatty filum terminale. IMPRESSION: 1. Postsurgical changes at the L4-S1 levels 2. Mild to moderate multilevel spondylitic change. With mild to moderate spinal stenosis at the L2-3 level, and mild spinal stenosis at the L3-4 level. There is also mild left-sided foraminal narrowing at the L3-4 and L5-S1 levels. 3. Trabeculated bladder with multiple bladder diverticula 4. Suspected large right renal cyst LUMBAR SPINE 2 OR 3 VIEWS CLINICAL HISTORY: Low back pain. Weakness. Trauma. COMPARISON STUDY: 01/05/2015 FINDINGS: There are postsurgical changes present at the L4-S1 levels. There are progressive degenerative changes at the L2-3 and L3-4 levels. There are no acute fractures. A spinal catheter is visualized, the tip of which extends to the T11-12 level. IMPRESSION: 1. Postsurgical change 2. No acute fractures 3. Progressive degenerative changes Electronically signed by: Juan Jose Atkins M.D. 10/21/2017 6:07 PM Consultations: Dr. Del Rio from pain management Cathleen Luo from orthopedics Medication Reconciliation New Medications: Amoxicillin & Pot Clavulanate (Augmentin 875-125 mg) 1 Tab Tab 875 MG PO BID for 5 Days, #9 TAB Azithromycin (Azithromycin) 250 Mg Tab 250 MG PO DAILY for 4 Days, #4 DOSE Continued Medications: Acetaminophen (Tylenol Arthritis Ext Rel) 650 Mg Cplt 1300 MG PO PRN, CAP Allopurinol (Zyloprim) 300 Mg Tab 300 MG PO QAM, TAB Aspirin (Ecotrin Regular Strength) 325 Mg Tab 325 MG PO QPM Ezetimibe (Zetia) 10 Mg Tab 10 MG PO QPM Gemfibrozil (Lopid) 600 Mg Tab 600 MG PO QAM Glipizide (Glipizide Er) 2.5 Mg Tab 1 TAB PO QAM for 90 Days, #90 TAB 3 Refills Indapamide (Lozol) 1.25 Mg Tab 2.5 MG PO QAM, TAB Latanoprost (Xalatan 0.005% Oph [place]) 0.005 % [place] 1 DROPS OPB HS Pantoprazole (Protonix) 40 Mg Tab 40 MG PO NOON Pregabalin (Lyrica) 150 Mg Cap 150 MG PO TID Probiotic Product (Probiotic) 1 Cap Cap 1 TAB PO NOON Spironolactone (Aldactone) 50 Mg Tab 50 MG PO QAM Testosterone (Androgel Pump) 1.62 % Gel 40.5 MG TOP DAILY, #75 GM 5 Refills Zolpidem Tartrate (Ambien) 5 Mg Tab 5 MG PO HS [pain pump] () INT SPINAL CONTINOUS MORPHINE CLONIDINE BUPIVACAINE [Potassium Otc] () 1 TAB PO PRN Discharge Exam ROS Constitutional: no chills, aches, sweats or fever Respiratory: no sob,cough, sputum, or wheezing Cardiac: no chest pain, palpitations, edema, orthopnea or lightheadedness GI: no abdominal pain, nausea, vomiting, diarrhea or constipation : no dysuria or hesitancy Extremities:baseline lower extremity weakness Skin: no rash All other systems reviewed and negative PE General: no distress Eyes: normal inspection, PERLL Respiratory: chest non tender, clear to auscultation, normal breath sounds, no respiratory distress, no accessory muscle use Cardiac: regular rate and rhythm, no rub or gallop, no murmur, no edema, no jvd GI/: active bowel sounds, no abd pain or tenderness, soft, non distended Extremities: normal range of motion, normal strength, non tender Neuro/Psych: alert and oriented x 3, normal mood and affect Skin: normal color, dry Hospital Course 81 y/o M w/Hx DM, CAD, chronic back pain, LE neuropathy presents to ED with complaints of weakness. He was in the bathroom and voided, and suddenly felt bilateral leg weakness. Patient lowered himself to the ground, and was unable to get back up. and son couldn't get him up from supine position. No fecal incontinence. Denies saddle paresthesias or numbness and tingling in the extremities. 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 helped him up patient did not feel excessively weak then. Has felt progressive weakness over last year, despite exercise on recombinant bike - although hasn't ridden it in past weak. H/o 3-4 surgeries on the back and was transitioned to pain pump for better pain control. Pneumonitis: Associated with severe leukocytosis - Zosyn and azithromycin inpatient - home with azithromycin and Augmentin for a total of 7 days abx. - CXR: Equivocal right midlung zone airspace opacities with clearing of acute pulmonary findings with repeat Xray the next day - Patient has a history of chronic leukocytosis which appears to have a baseline around 11-14, WBCs elevated to 25 and responded well to abx - Sed rate, procalcitonin wnl however given the positive clinical response and decrease in WBCs, will complete 7 day abx course Weakness/Fall, - checked CPK levels were normal, - checked Orthostatic BP was negative, - fall precaution , - PT/OT eval felt safe to go home - given script for home PT/OT - ortho consulted - no intervention at this time Chronic back pain with possible intrathecal pump malfunction upon admission, pain management saw the patient and did not feel there was a malfunction based on pump interrogation and imaging of placement. Pain well controlled DM - held glipizide inpatient and restarted for home- ss, bsgs ac & hs - A1c pending Total Time Spent: Greater than 30 minutes This includes examination of the patient, discharge planning, medication reconciliation, and communication with other providers. Discharge Instructions Please refer to the electronic Patient Visit Report (Discharge Instructions) for additional information. Follow-Up pcp appointment next week Additional Copies To Miles Neil M.D.; Jered Draper M.D.
== END 2017-10-23 14:32 | disposition home or self-care (01) ==
LOC: EDBD 16:12 → C.EDB 16:13 → C.MS2W 10-22 03:13 → ENRESERV 10-22 03:34 → CANRESERV 10-22 03:34 → ENRESERV 10-22 03:47
PROVIDERS: ADMIT Student in an Organized Health Care Education/Training Program; ATTEND Hospitalist
DX: J18.9 Pneumonia, unspecified organism (principal); R53.1 Weakness; M54.9 Dorsalgia, unspecified; G89.29 Other chronic pain; D72.829 Elevated white blood cell count, unspecified; E11.9 Type 2 diabetes mellitus without complications; G62.9 Polyneuropathy, unspecified; I25.10 Atherosclerotic heart disease of native coronary artery without angina pectoris; E78.00 Pure hypercholesterolemia, unspecified; G47.33 Obstructive sleep apnea (adult) (pediatric); Z98.890 Other specified postprocedural states; Z90.89 Acquired absence of other organs; Z98.49 Cataract extraction status, unspecified eye; Z96.651 Presence of right artificial knee joint; Z79.82 Long term (current) use of aspirin; Z79.899 Other long term (current) drug therapy

== ENCOUNTER → 2018-01-25 | Outpatient (CLI) | payer BC ==
[~2018-01-25] MED LIST changes: +AZIT-57 PO
--- NOTE | 2018-01-25 10:14 | DIAGNOSTIC IMAGING REPORT ---
CHEST 2 VIEWS ROUTINE CLINICAL HISTORY: 82 years-old Male presenting with R05 Cough R09.89 Respiratory crackles at right lung base Z87.01. TECHNIQUE: PA and lateral views of the chest were obtained. COMPARISON: 10/22/2017. FINDINGS: Median sternotomy wires and mediastinal surgical clips noted. Atherosclerosis of aortic arch. Cardiac silhouette normal in size. Lungs and pleural spaces clear. Slightly exaggerated thoracic kyphosis without a focal compression deformity. Upper abdomen normal. IMPRESSION: 1. No acute cardiopulmonary disease. Electronically signed by: Basilio Menchaca M.D. 01/25/2018 10:12 AM Dictated Date/Time: 01/25/2018 10:11 AM
== END | disposition home or self-care (01) ==
LOC: C.RAD1850 09:39
PROVIDERS: ATTEND Internal Medicine
DX: R05 Cough (principal); R09.89 Other specified symptoms and signs involving the circulatory and respiratory systems; Z87.01 Personal history of pneumonia (recurrent); R06.02 Shortness of breath

== ENCOUNTER → 2018-02-13 | Outpatient (CLI) | payer BC ==
[2018-02-13 09:37] LABS: MEAN CELL VOLUME 97.7 fL (80-100); MEAN CORPUSCULAR HEMOGLOBIN 32.6 pg (25-34); MEAN CORPUSCULAR HGB CONC 33.3 g/dl (32-36); MEAN PLATELET VOLUME 11.9 fL (7.4-10.4); PLATELET COUNT 144 K/uL (130-400); RED CELL DISTRIBUTION WIDTH CV 14.7 % (11.5-14.5); RED CELL DISTRIBUTION WIDTH SD 52.2 fL (36.4-46.3); WHITE BLOOD COUNT 12.44 K/uL (4.8-10.8)
[2018-02-13 10:04] LABS: HEMOGLOBIN A1C 7.4 % (4.5-5.6)
[2018-02-13 10:22] LABS: ALT/SGPT 28 U/L (12-78); AST/SGOT 22 U/L (15-37); BLOOD UREA NITROGEN 23 mg/dl (7-18); CALCIUM 8.5 mg/dl (8.5-10.1); CARBON DIOXIDE 27 mmol/L (21-32); CHOLESTEROL 125 mg/dl (0-200); CREATININE 1.34 mg/dl (0.60-1.40); GLUCOSE 145 mg/dl (70-99); LDL CHOLESTEROL CALCULATED 62 mg/dl; POTASSIUM 3.8 mmol/L (3.5-5.1); SODIUM 138 mmol/L (136-145)
[2018-02-13 10:57] LABS: BASO % 0.7 %; BASO ABS # 0.09 K/uL (0-0.2); EOS % 3.5 %; EOS ABS # 0.44 K/uL (0-0.5); IG# 0.11 K/uL (0.00-0.02); LYMPH % 48.7 %; LYMPH ABS # 6.06 K/uL (1.2-3.4); MONO % 5.4 %; MONO ABS # 0.67 K/uL (0.11-0.59); NEUT % 40.8 %; NEUT ABS # 5.07 K/uL (1.4-6.5)
== END | disposition home or self-care (01) ==
LOC: C.LAB1850 08:02
PROVIDERS: ATTEND Internal Medicine
DX: E11.9 Type 2 diabetes mellitus without complications (principal)

== ENCOUNTER 2019-08-11 21:53 | Inpatient (IN) ==
[2019-08-11] MEDS ORDERED: ONDANSETRON INJ 2 MG/ML 2 ML VIAL IV STA (22:48)
[2019-08-11] MEDS ORDERED: SODIUM CHLORIDE 0.9% 1000ML 1,000 ML IV SCH (23:00)
[2019-08-11 23:08] LABS: Hematocrit (blood only) 49.5 % (42-52); Hemoglobin 16.7 g/dL (14.0-18.0); Mean Corpuscular Hemoglobin 33.4 pg (25-34); Mean Corpuscular Hgb Conc 33.7 g/dL (32-36); Platelet Count 161 K/uL (130-400); RDW Standard Deviation 50.3 fL (36.4-46.3); White Blood Count 16.87 K/uL (4.8-10.8)
[2019-08-11 23:20] LABS: Albumin Globulin Ratio 1.1 (0.9-2); BUN Creatinine Ratio 13.1 (10-20); Bilirubin,Total 0.5 mg/dl (0.2-1); Calcium 9.3 mg/dl (8.5-10.1); Est GFR (Non-African American) 56.9; Globulin 3.8 gm/dl (2.5-4.0); Potassium 3.7 mmol/L (3.5-5.1); Total Protein 7.8 gm/dl (6.4-8.2)
[2019-08-11 23:49] LABS: Appearance Urine Clear (Clear); Bacteria Urine Automated Negative (Negative); Bilirubin Urine Negative (Negative); Blood Urine Negative (Negative); Color Urine Yellow; Epithelial Cell Urine Auto 0-5 /lpf (0-5); Glucose Urine UA Negative (Negative); Ketones Urine Negative (Negative); Leukocyte Esterase Urine Negative (Negative); Nitrite Urine Negative (Negative); Protein Urine 2+ (Negative); RBC Urine Automated 0-4 /hpf (0-4); Specific Gravity Urine 1.019 (1.000-1.030); Urobilinogen Urine Negative (Negative); WBC Urine Automated 0 /hpf (0-5)
[2019-08-12 00:01] LABS: Basophils # (auto) 0.09 K/uL (0-0.2); Basophils % (auto) 0.5 %; Eosinophils # (auto) 0.29 K/uL (0-0.5); Eosinophils % (auto) 1.7 %; Immature Granulocytes # (auto) 0.11 K/uL (0.00-0.02); Immature Granulocytes % (auto) 0.7 %; Lymphocytes # (auto) 7.63 K/uL (1.2-3.4); Lymphocytes % (auto) 45.2 %; Monocytes # (auto) 0.77 K/uL (0.11-0.59); Monocytes % (auto) 4.6 %; Neutrophils # (auto) 7.98 K/uL (1.4-6.5); Neutrophils % (auto) 47.3 %; RBC Morphology Unremarkable
--- NOTE | 2019-08-12 01:35 | History & Physical Report ---
Date of Service August 12, 2019 Assessment & Plan (1) Diabetes mellitus: (2) Coronary artery disease, occlusive: (3) Glaucoma: (4) Gout, joint: (5) Hypercholesterolemia: (6) Hypertension: (7) Lumbar spinal stenosis: (8) Obstructive sleep apnea: (9) History of appendectomy: (10) History of back surgery: (11) S/P triple vessel bypass: (12) Umbilical hernia: (13) Presence of intrathecal baclofen pump: (14) SBO (small bowel obstruction): 84-year-old male with history of CAD status post three-vessel bypass in 2001, hypertension, hyperlipidemia, DM 2, obstructive sleep apnea, gout, lumbar spinal stenosis, neuropathy presents with abdominal pain and nausea/vomiting which started yesterday. Found to have SBO. History of appendectomy and umbilical hernia repair. SBO Likely secondary to adhesions from previous surgeries Afebrile, WBC 16.[address] abdomen: Concerning for SBO with transition point in right lower quadrant Bowel rest, on IV fluids LR 125 cc/h Morphine 2 mg every 3 hours as needed for pain Zofran as needed for nausea NG not placed at this time as patient appears very comfortable with active bowel sounds Consider surgery consult if not improving Hypertension/hyperlipidemia/CAD Continue home aspirin, spironolactone, KCl, gemfibrozil, Zetia DM2 Hold home glipizide on sliding scale insulin Spinal stenosis/neuropathy Continue bupivacaine via pump and Lyrica Glaucoma Continue latanoprost OP GERD Continue home pantoprazole FEN/GI: N.p.o. on IV fluids LR 125 cc/h DVT prophylaxis: Lovenox subcu Code: Full per discussion with patient Disposition: MedSur History of Present Illness Chief Complaint: SBO Primary Care Provider: Miles Neil MD 84-year-old male with history of CAD status post three-vessel bypass in 2001, hypertension, hyperlipidemia, DM 2, obstructive sleep apnea, gout, lumbar spinal stenosis, neuropathy presents with abdominal pain and nausea/vomiting which started yesterday. Reports having a normal bowel movement in the morning after which he gradually developed worsening abdominal soreness. He had breakfast but was unable to keep anything down for the rest of the day and was dry heaving as well. He is not passing gas right now and cannot remember the last time he passed gas. Abdominal pain is currently 5 out of 10 and described as soreness. Bowel movement this morning was nonbloody, soft and not dark. He denies any fever, chills, headache, lightheadedness, chest pain, shortness of breath, dysuria, hematuria. Patient is incontinent of urine at night and wears a diaper. History of appendectomy and umbilical hernia repair ED course: Found to have SBO Allergies Allergy/AdvReac Type Severity Reaction Status Date / Time hydrochlorothiazide Allergy Severe Hives Verified 08/11/19 23:54 Iodinated Contrast Media Allergy Severe Convulsions Verified 08/11/19 23:54 adhesive Allergy Intermediate RASH;PULLS Verified 08/11/19 23:54 SKIN OFF levofloxacin Allergy Mild HIVES, Verified 08/11/19 23:54 PRURITIS NSAIDS (Non-Steroidal Allergy Mild Elevated BP Verified 08/11/19 23:54 Anti-Inflamma amiodarone Allergy Unknown RASH Verified 08/11/19 23:54 cephalexin Allergy Unknown AFTER 14 Verified 08/11/19 23:54 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 Sdaaity-Bmr-Cck Reductase Allergy Unknown Unknown Verified 08/11/19 23:54 Inhibitor terazosin [From Hytrin] Allergy Unknown Unknown Verified 08/11/19 23:54 Cephalosporins AdvReac Intermediate nausea Verified 08/11/19 23:54 after repeated dose nifedipine AdvReac Intermediate Sick to Verified 08/11/19 23:54 stomach atorvastatin AdvReac Unknown MUSCLE Verified 08/11/19 23:54 ACHES doxycycline AdvReac Unknown gi upset Verified 08/11/19 23:54 Home Medications Home Medications Medication Instructions Recorded Confirmed Type acetaminophen 650 mg 1,300 mg PO Q8H PRN tab 07/01/18 08/11/19 History tablet,extended release allopurinol 300 mg tablet 300 mg PO DAILY 07/01/18 08/11/19 History aspirin 325 mg tablet 325 mg PO HS tab 07/01/18 08/11/19 History lactobacillus combination no.8 3 3,000 mmu cells PO DAILY 07/01/18 08/11/19 History billion cell capsule latanoprost 0.005 % eye drops 1 drops OP QPM 09/11/18 08/11/19 History potassium chloride 10 mEq 10 meq PO DAILY tab 04/15/19 08/11/19 History tablet,extended release bupivacaine 0.25 % (2.5 mg/mL) See Rx Instructions .ROUTE 05/18/19 08/11/19 Rx injection solution .COMPLEX #50 ml zolpidem 5 mg tablet 5 mg PO HS #90 tab 05/18/19 08/11/19 Rx pantoprazole 40 mg tablet,delayed 40 mg PO DAILY #180 tab 06/26/19 08/11/19 Rx release ezetimibe 10 mg tablet 10 mg PO DAILY #90 tab 07/21/19 08/11/19 Rx glipizide 10 mg tablet, extended 10 mg PO BID #180 tab 07/28/19 08/11/19 Rx release 24 hr spironolactone 50 mg tablet 50 mg PO DAILY #90 tab 07/28/19 08/11/19 Rx pregabalin 150 mg capsule 150 mg PO BID #180 cap 07/31/19 08/11/19 Rx gemfibrozil 300 mg PO BID 08/11/19 08/11/19 History Past Med/Surg History Medical History CAD (coronary artery disease) (Chronic) Cataracts, bilateral (Chronic) Chronic intractable pain (Chronic) Chronic leg pain (Chronic) Coronary artery disease, occlusive (Chronic) Diabetes mellitus (Chronic) Gastroesophageal reflux disease (Chronic) Gastropathy (Chronic) Glaucoma (Chronic) Gout, joint (Chronic) Hypercholesterolemia (Chronic) Hyperlipidemia (Chronic) Hypertension (Chronic) Hypertension (Chronic) Incisional hernia (Chronic) Low back pain (Chronic) Lumbar postlaminectomy syndrome (Chronic) Lumbar spinal stenosis (Chronic) Lung nodule (Chronic) Muscle weakness (generalized) (Chronic) Neuropathy (Chronic) Obstructive sleep apnea (Chronic) Osteoarthritis (Chronic) Peripheral neuropathy (Chronic) Sleep apnea (Chronic) Sleep apnea (Chronic) 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) Umbilical hernia (Resolved) 2006 Surgical History History of appendectomy (Chronic) 194 History of back surgery (Chronic) x4 laminectomy 1984; AL Fusion L5-S1 1988; L4, L5 S1 [id number]; S/P triple vessel bypass (Chronic) 2001 Status post right partial knee replacement (Chronic) partial 2005 Social History Preferred Language: [place] Communication Ability: Effective Visual Impairment: Limited Hearing Ability: Normal Beliefs That Will Affect Care: None marital status: Current Living Situation: Spouse current occupational status: retired Other Information That Helps Us Care for You: No Feels Safe at Home: Yes Safety Concerns: Feels Safe At This Time Smoking Status: Former smoker Second Hand Exposure: No ; Tobacco Cessation Edu cation Requested by Patient: No Hx Alcohol Use: Yes Alcohol type: wine Hx Substance Use: No Review of Systems Review of Systems: As per HPI Physical Exam Physical Exam: General: In NAD, pleasant Neuro: A&O x 4 Pulm: CTAB equal breath sounds bilaterally CV: RRR, no m/r/g Abdomen:+BS, pressure reported on palpation, no TTP in all quadrants, somewhat distended, midline abdominal incision scar, subdermal stimulator over LLQ LE: no LE edema, no calf TTP Results & Data Vital Signs (Past 12 Hours) Vital Signs Temp Pulse Resp BP Pulse Ox 08/12/19 00:30 83 12 125/72 95 08/12/19 00:00 81 13 127/82 96 08/11/19 23:30 76 16 154/104 H 99 08/11/19 23:01 81 16 143/90 H 94 08/11/19 22:57 95 08/11/19 22:30 74 17 145/83 H 95 08/11/19 22:27 87 L 08/11/19 22:05 36.5 C 70 18 163/85 H 93 Laboratory Results Abnormal lab results 08/11/19 08/11/19 08/11/19 Range/Units 21:42 21:42 23:36 WBC 16.87 H (4.8-10.8) K/uL RDW Std Deviation 50.3 H (36.4-46.3) fL MPV 12.0 H (7.4-10.4) fL Immature Gran # (Auto) 0.11 H (0.00-0.02) K/uL Neut # (Auto) 7.98 H (1.4-6.5) K/uL Lymph # (Auto) 7.63 H (1.2-3.4) K/uL [place] # (Auto) 0.77 H (0.11-0.59) K/uL Glucose 176 H (70-99) mg/dl Lipase 51 L (73-393) U/L Urine Protein 2+ H (Negative) Code Status & VTE Plan Code Status Full VTE Prophylaxis Plan VTE Prophylaxis will be ordered: Yes Supervising Physician Co-Signing Physician Notes Patient seen and examined, chart reviewed, case discussed with Dr. Gerber and I agree with her assessment and plan. Briefly, patient is an 84yo C male presenting with abdominal pain, found with SBO. On exam he is afebrile, hemodynamically stable, non-toxic in appearance Skin - warm, dry, intact, abdominal surgical scar, sternotomy scar HEENT - NC/AT, PERRL, MMM, neck supple Heart - +S1/S2, regular, no m/r/g Lungs - CTA Abd - +BS, hyperactive, soft, mildly tender with deep palpation, no rebound/guarding/peritoneal signs Ext - warm, no edema Labs and images reviewed Assessment/Plan: 84yo C male presenting with SBO -Admit to medical floor. -NPO, IVF, electrolyte repletion -Remainder of plan as above Resident Activity Tracking Resident Involvement: Resident Care Provided Care Provided: Adult Hospital Medicine
--- NOTE | 2019-08-12 01:50 | Emergency Department Note ---
Entered by Linh Melendez acting as a scribe for Sara Doll MD History of Present Illness General Chief complaint: Abdominal Pain Stated complaint: AB PAIN, VOMITING Source: patient and family () Limitations: no limitations History of Present Illness Onset (ago): hour(s) (this morning ) Location: abdomen (center) Pain Consistency: + constant Maximum Pain Intensity: 8 Quality: + other (worsening ) Exacerbated By: + eating Associated symptoms: + denies other symptoms (hematemesis) and + nausea/vomiting The patient is an 84 year old male who presents to the Emergency Room with complaints of constant, aching abdominal pain that began this morning. His , at bedside, notes that the pain has been worsening throughout the day today. The patient reports that the pain is in the center of his abdomen. He states that eating worsens the pain. The patient states that he had a BM at 10:00 this morning, noting that he still feels like he needs to have another BM but he cannot. He complains of nausea and vomiting that began after dinner. The patient denies any hematemesis. Home Medications Home Medications Medication Instructions Recorded Confirmed Type acetaminophen 650 mg 1,300 mg PO Q8H PRN tab 07/01/18 08/11/19 History tablet,extended release allopurinol 300 mg tablet 300 mg PO DAILY 07/01/18 08/11/19 History aspirin 325 mg tablet 325 mg PO HS tab 07/01/18 08/11/19 History lactobacillus combination no.8 3 3,000 mmu cells PO DAILY 07/01/18 08/11/19 History billion cell capsule latanoprost 0.005 % eye drops 1 drops OP QPM 09/11/18 08/11/19 History potassium chloride 10 mEq 10 meq PO DAILY tab 04/15/19 08/11/19 History tablet,extended release bupivacaine 0.25 % (2.5 mg/mL) See Rx Instructions .ROUTE 05/18/19 08/11/19 Rx injection solution .COMPLEX #50 ml zolpidem 5 mg tablet 5 mg PO HS #90 tab 05/18/19 08/11/19 Rx pantoprazole 40 mg tablet,delayed 40 mg PO DAILY #180 tab 06/26/19 08/11/19 Rx release ezetimibe 10 mg tablet 10 mg PO DAILY #90 tab 07/21/19 08/11/19 Rx glipizide 10 mg tablet, extended 10 mg PO BID #180 tab 07/28/19 08/11/19 Rx release 24 hr spironolactone 50 mg tablet 50 mg PO DAILY #90 tab 07/28/19 08/11/19 Rx pregabalin 150 mg capsule 150 mg PO BID #180 cap 07/31/19 08/11/19 Rx gemfibrozil 300 mg PO BID 08/11/19 08/11/19 History Allergies Allergy/AdvReac Type Severity Reaction Status Date / Time hydrochlorothiazide Allergy Severe Hives Verified 08/11/19 23:54 Iodinated Contrast Media Allergy Severe Convulsions Verified 08/11/19 23:54 adhesive Allergy Intermediate RASH;PULLS Verified 08/11/19 23:54 SKIN OFF levofloxacin Allergy Mild HIVES, Verified 08/11/19 23:54 PRURITIS NSAIDS (Non-Steroidal Allergy Mild Elevated BP Verified 08/11/19 23:54 Anti-Inflamma amiodarone Allergy Unknown RASH Verified 08/11/19 23:54 cephalexin Allergy Unknown AFTER 14 Verified 08/11/19 23:54 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 Gnhnzsy-Xoq-Ggr Reductase Allergy Unknown Unknown Verified 08/11/19 23:54 Inhibitor terazosin [From Hytrin] Allergy Unknown Unknown Verified 08/11/19 23:54 Cephalosporins AdvReac Intermediate nausea Verified 08/11/19 23:54 after repeated dose nifedipine AdvReac Intermediate Sick to Verified 08/11/19 23:54 stomach atorvastatin AdvReac Unknown MUSCLE Verified 08/11/19 23:54 ACHES doxycycline AdvReac Unknown gi upset Verified 08/11/19 23:54 Past Med/Surg History Medical History CAD (coronary artery disease) (Chronic) Cataracts, bilateral (Chronic) Chronic intractable pain (Chronic) Chronic leg pain (Chronic) Coronary artery disease, occlusive (Chronic) Diabetes mellitus (Chronic) Gastroesophageal reflux disease (Chronic) Gastropathy (Chronic) Glaucoma (Chronic) Gout, joint (Chronic) Hypercholesterolemia (Chronic) Hyperlipidemia (Chronic) Hypertension (Chronic) Hypertension (Chronic) Incisional hernia (Chronic) Low back pain (Chronic) Lumbar postlaminectomy syndrome (Chronic) Lumbar spinal stenosis (Chronic) Lung nodule (Chronic) Muscle weakness (generalized) (Chronic) Neuropathy (Chronic) Obstructive sleep apnea (Chronic) Osteoarthritis (Chronic) Peripheral neuropathy (Chronic) Sleep apnea (Chronic) Sleep apnea (Chronic) 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) Umbilical hernia (Resolved) 2006 Surgical History History of appendectomy (Chronic) 1946 History of back surgery (Chronic) x4 laminectomy 1984; AL Fusion L5-S1 1988; L4, L5 S1 [id number]; S/P triple vessel bypass (Chronic) 2001 Status post right partial knee replacement (Chronic) partial 2005 Social History Preferred Language: Bahraini Communication Ability: Effective Visual Impairment: Limited Hearing Ability: Normal Beliefs That Will Affect Care: None marital status: Current Living Situation: Spouse current occupational status: retired Other Information That Helps Us Care for You: No Feels Safe at Home: Yes Safety Concerns: Feels Safe At This Time Smoking Status: Former smoker Second Hand Exposure: No ; Tobacco Cessation Education Requested by Patient: No Hx Alcohol Use: Yes Alcohol type: wine Hx Substance Use: No Review of Systems See HPI for pertinent positives & negatives. and A total of 10 systems reviewed and were otherwise negative Physical Exam Vital Signs Vital Signs - 24 hr 08/11/19 22:05 08/11/19 22:27 08/11/19 22:30 Temperature 36.5 C Temperature Source Oral Pulse Rate 70 74 Pulse Rate from SpO2 Sensor 75 Respiratory Rate 18 17 Blood Pressure 163/85 H 145/83 H Blood Pressure Mean 111 110 Pulse Oximetry 93 87 L 95 Oxygen Delivery Method Room Air Nasal Cannula Nasal Cannula Oxygen Flow Rate 0 2 Sepsis Recent Fever Within 48 Hours No Sepsis New/Unexplained Change in Mental Status No Sepsis Action Taken by Nursing No Action Required Oxygen Flow Rate - Titration 2 Pulse Oximetry Post Tiitration 93 08/11/19 22:57 08/11/19 23:01 08/11/19 23:30 Temperature Temperature Source Pulse Rate 81 76 Pulse Rate from SpO2 Sensor 81 76 Respiratory Rate 16 16 Blood Pressure 143/90 H 154/104 H Blood Pressure Mean 127 123 Pulse Oximetry 95 94 99 Oxygen Delivery Method Nasal Cannula Nasal Cannula Nasal Cannula Oxygen Flow Rate 2 2 2 Sepsis Recent Fever Within 48 Hours Sepsis New/Unexplained Change in Mental Status Sepsis Action Taken by Nursing Oxygen Flow Rate - Titration Pulse Oximetry Post Tiitration 08/12/19 00:00 08/12/19 00:30 08/12/19 01:00 Temperature Temperature Source Pulse Rate 81 83 89 Pulse Rate from SpO2 Sensor 80 83 88 Respiratory Rate 13 12 21 Blood Pressure 127/82 125/72 150/97 H Blood Pressure Mean 96 88 111 Pulse Oximetry 96 95 97 Oxygen Delivery Method Nasal Cannula Nasal Cannula Nasal Cannula Oxygen Flow Rate 2 2 2 Sepsis Recent Fever Within 48 Hours Sepsis New/Unexplained Change in Mental Status Sepsis Action Taken by Nursing Oxygen Flow Rate - Titration Pulse Oximetry Post Tiitration 08/12/19 01:30 Temperature Temperature Source Pulse Rate 85 Pulse Rate from SpO2 Sensor 86 Respiratory Rate 11 L Blood Pressure 134/81 Blood Pressure Mean 91 Pulse Oximetry 96 Oxygen Delivery Method Nasal Cannula Oxygen Flow Rate 2 Sepsis Recent Fever Within 48 Hours Sepsis New/Unexplained Change in Mental Status Sepsis Action Taken by Nursing Oxygen Flow Rate - Titration Pulse Oximetry Post Tiitration Vital signs reviewed. General: Elderly, chronically ill-appearing male, in no significant distress. HEENT: No scleral icterus, PERRLA, neck supple. Atraumatic. Cardiovascular: Regular rate and rhythm, no extra sounds. Pulmonary: Clear to auscultation bilaterally, normal work of breathing. On a nasal cannula for oxygen. Abdomen: Soft, mild mid-abdominal tenderness, no rebound, no guarding, minimal tympany to percussion, nondistended, positive bowel sounds. Obese abdomen. Musculoskeletal: Atraumatic, no peripheral edema. Neurologic: Patient awake alert and oriented x 3 Skin: Warm, dry, no rash Course Course 2239: The patient was evaluated in room A12. A complete history and physical exam was performed. 0002: I reevaluated and updated the patient. 0040: I spoke with Dr. Garcias, [place] hospitalist, about the patient's case. She will evaluate the patient further. Administered Medications Allopurinol (Zyloprim) 300 mg PO DAILY [facility] Stop: 09/11/19 08:59 Last Admin: 08/14/19 08:20 Dose: 300 mg Documented by: [id number] Admin: 08/13/19 08:20 Dose: 300 mg Documented by: [id number] Admin: 08/12/19 09:12 Dose: 300 mg Documented by: [id number] Aspirin (Ecotrin) 325 mg PO HS [facility] Stop: 09/11/19 20:59 Last Admin: 08/13/19 21:44 Dose: 325 mg Documented by: [id number] Admin: 08/12/19 20:01 Dose: 325 mg Documented by: [id number] Ezetimibe (Zetia) 10 mg PO DAILY [facility] Stop: 09/11/19 08:59 Last Admin: 08/12/19 09:12 Dose: 10 mg Documented by: [id number] Enoxaparin Sodium (Lovenox) 30 mg SQ Q24H [facility] Stop: 09/11/19 08:59 Last Admin: 08/14/19 08:22 Dose: 30 mg Documented by: [id number] Admin: 08/13/19 08:23 Dose: 30 mg Documented by: [id number] Admin: 08/12/19 09:12 Dose: 30 mg Documented by: [id number] Gemfibrozil (Lopid) 300 mg PO BID [facility] Stop: 09/11/19 08:59 Last Admin: 08/12/19 09:14 Dose: 300 mg Documented by: [id number] Guaifenesin (Mucinex) 1,200 mg PO Q12 [facility] Stop: 09/11/19 20:59 Last Admin: 08/14/19 08:20 Dose: 1,200 mg Documented by: [id number] Admin: 08/13/19 21:44 Dose: 1,200 mg Documented by: [id number] Admin: 08/13/19 08:20 Dose: 1,200 mg Documented by: [id number] Admin: 08/12/19 20:01 Dose: 1,200 mg Documented by: [id number] Lactated Ringer's (Lr) 1,000 mls @ 125 mls/hr IV .Q8H [facility] Stop: 09/11/19 02:36 Last Admin: 08/14/19 11:51 Dose: 125 mls/hr Documented by: [id number] Infusion: 08/14/19 09:38 Dose: 125 mls/hr Documented by: [id number] Infusion: 08/14/19 05:35 Dose: 125 mls/hr Documented by: [id number] Infusion: 08/14/19 04:35 Dose: 0 mls/hr Documented by: [id number] Admin: 08/14/19 03:31 Dose: Not Given Documented by: [id number] Infusion: 08/14/19 00:53 Dose: 125 mls/hr Documented by: [id number] Infusion: 08/13/19 23:09 Dose: 0 mls/hr Documented by: [id number] Infusion: 08/13/19 23:09 Dose: 125 mls/hr Documented by: [id number] Infusion: 08/13/19 21:43 Dose: 0 mls/hr Documented by: [id number] Admin: 08/13/19 21:27 Dose: 125 mls/hr Documented by: [id number] Infusion: 08/13/19 21:26 Dose: 125 mls/hr Documented by: [id number] Infusion: 08/13/19 14:31 Dose: 125 mls/hr Documented by: [id number] Infusion: 08/13/19 13:21 Dose: 0 mls/hr Documented by: [id number] Admin: 08/13/19 12:16 Dose: 125 mls/hr Documented by: [id number] Infusion: 08/13/19 10:14 Dose: 125 mls/hr Documented by: [id number] Admin: 08/13/19 02:14 Dose: 125 mls/hr Documented by: [id number] Infusion: 08/13/19 02:14 Dose: 125 mls/hr Documented by: [id number] Admin: 08/12/19 19:11 Dose: 125 mls/hr Documented by: [id number] Infusion: 08/12/19 19:11 Dose: 125 mls/hr Documented by: [id number] Admin: 08/12/19 11:12 Dose: 125 mls/hr Documented by: [id number] Infusion: 08/12/19 11:09 Dose: 125 mls/hr Documented by: [id number] Infusion: 08/12/19 05:39 Dose: 125 mls/hr Documented by: [id number] Admin: 08/12/19 03:09 Dose: 125 mls/hr Documented by: [id number] Ciprofloxacin (Cipro) 400 mg in 200 mls @ 100 mls/hr IV Q12H [facility]; Protocol Stop: 08/14/19 21:59 Last Infusion: 08/14/19 11:57 Dose: 0 mls/hr Documented by: [id number] Admin: 08/14/19 09:40 Dose: 100 mls/hr Documented by: [id number] Infusion: 08/14/19 00:53 Dose: 0 mls/hr Documented by: [id number] Infusion: 08/13/19 23:09 Dose: 100 mls/hr Documented by: [id number] Infusion: 08/13/19 21:43 Dose: 0 mls/hr Documented by: [id number] Admin: 08/13/19 21:27 Dose: 100 mls/hr Documented by: [id number] Infusion: 08/13/19 12:13 Dose: 0 mls/hr Documented by: [id number] Admin: 08/13/19 09:57 Dose: 100 mls/hr Documented by: [id number] Infusion: 08/13/19 00:46 Dose: 0 mls/hr Documented by: [id number] Admin: 08/12/19 22:40 Dose: 100 mls/hr Documented by: [id number] Metronidazole (Flagyl) 500 mg in 100 mls @ 100 mls/hr IV Q8H [facility] Stop: 08/14/19 20:59 Last Infusion: 08/14/19 14:22 Dose: 0 mls/hr Documented by: [id number] Admin: 08/14/19 13:06 Dose: 100 mls/hr Documented by: [id number] Infusion: 08/14/19 05:35 Dose: 0 mls/hr Documented by: [id number] Admin: 08/14/19 04:35 Dose: 100 mls/hr Documented by: [id number] Infusion: 08/13/19 23:09 Dose: 0 mls/hr Documented by: [id number] Admin: 08/13/19 21:37 Dose: 100 mls/hr Documented by: [id number] Infusion: 08/13/19 14:31 Dose: 0 mls/hr Documented by: [id number] Admin: 08/13/19 13:21 Dose: 100 mls/hr Documented by: [id number] Infusion: 08/13/19 06:14 Dose: 0 mls/hr Documented by: [id number] Admin: 08/13/19 05:13 Dose: 100 mls/hr Documented by: [id number] Infusion: 08/12/19 22:43 Dose: 0 mls/hr Documented by: [id number] Admin: 08/12/19 21:31 Dose: 100 mls/hr Documented by: [id number] Latanoprost (Xalatan Oph) 1 drops OP QPM [facility] Stop: 09/11/19 20:59 Last Admin: 08/13/19 21:44 Dose: 1 drops Documented by: [id number] Admin: 08/12/19 20:02 Dose: 1 drops Documented by: [id number] Morphine Sulfate (Morphine Sulfate) 2 mg IV Q3H PRN PRN Reason: Pain Stop: 08/26/19 02:36 Last Admin: 08/13/19 13:18 Dose: 2 mg Documented by: [id number] Admin: 08/12/19 23:29 Dose: 2 mg Documented by: [id number] Admin: 08/12/19 03:22 Dose: 2 mg Documented by: [id number] Ondansetron HCl (Zofran) 4 mg IV Q6H PRN PRN Reason: Nausea Stop: 09/11/19 02:36 Last Admin: 08/13/19 13:28 Dose: 4 mg Documented by: [id number] Pantoprazole Sodium (Protonix) 40 mg PO DAILY [facility] Stop: 09/11/19 08:59 Last Admin: 08/14/19 08:20 Dose: 40 mg Documented by: [id number] Admin: 08/13/19 08:20 Dose: 40 mg Documented by: [id number] Admin: 08/12/19 09:12 Dose: 40 mg Documented by: [id number] Polyethylene Glycol (Miralax Powder Packet) 17 gm PO DAILY [facility] Stop: 09/13/19 12:14 Last Admin: 08/14/19 12:26 Dose: 17 gm Documented by: [id number] Potassium Chloride (Klor-Con M10) 10 meq PO DAILY [facility] Stop: 09/11/19 08:59 Last Admin: 08/12/19 09:12 Dose: 10 meq Documented by: [id number] Pregabalin (Lyrica) 150 mg PO BID [facility] Stop: 09/11/19 08:59 Last Admin: 08/14/19 08:19 Dose: 150 mg Documented by: [id number] Admin: 08/13/19 21:47 Dose: 150 mg Documented by: [id number] Admin: 08/13/19 08:22 Dose: 150 mg Documented by: [id number] Admin: 08/12/19 20:01 Dose: 150 mg Documented by: [id number] Admin: 08/12/19 09:12 Dose: 150 mg Documented by: [id number] Sennosides (Senokot) 17.2 mg PO QAM [facility] Stop: 09/13/19 12:19 Last Admin: 08/14/19 13:05 Dose: 17.2 mg Documented by: [id number] Spironolactone (Aldactone) 50 mg PO DAILY [facility] Stop: 09/11/19 08:59 Last Admin: 08/12/19 09:12 Dose: 50 mg Documented by: [id number] Zolpidem Tartrate (Ambien) 5 mg PO HS [facility] Stop: 09/11/19 20:59 Last Admin: 08/13/19 21:47 Dose: 5 mg Documented by: [id number] Admin: 08/12/19 20:01 Dose: 5 mg Documented by: [id number] Discontinued Medications Acetaminophen (Tylenol) 650 mg PO Q4H PRN PRN Reason: Fever or headache Stop: 09/12/19 08:02 Last Admin: 08/14/19 08:18 Dose: 650 mg Documented by: [id number] Admin: 08/13/19 23:17 Dose: 650 mg Documented by: [id number] Admin: 08/13/19 08:18 Dose: 650 mg Documented by: [id number] Bisacodyl (Dulcolax) 10 mg MI NOW STA Stop: 08/13/19 09:15 Last Admin: 08/13/19 11:04 Dose: 10 mg Documented by: [id number] Sodium Chloride (Nss 1000ml) 1,000 mls @ 125 mls/hr IV .Q8H [facility] Stop: 08/12/19 06:59 Last Infusion: 08/12/19 02:30 Dose: 0 mls/hr Documented by: [id number] Admin: 08/11/19 23:34 Dose: 125 mls/hr Documented by: [id number] Insulin Aspart (Novolog Flexpen) 0 units SC Q6 [facility] Stop: 09/11/19 03:29 Last Admin: 08/14/19 12:22 Dose: Not Given Documented by: [id number] Cosigned by: [id number] Admin: 08/14/19 06:10 Dose: Not Given Documented by: [id number] Cosigned by: [id number] Admin: 08/14/19 00:21 Dose: Not Given Documented by: [id number] Cosigned by: [id number] Admin: 08/13/19 18:05 Dose: Not Given Documented by: [id number] Cosigned by: [id number] Admin: 08/13/19 12:32 Dose: Not Given Documented by: [id number] Cosigned by: [id number] Admin: 08/13/19 06:13 Dose: Not Given Documented by: [id number] Cosigned by: [id number] Admin: 08/13/19 00:10 Dose: Not Given Documented by: [id number] Admin: 08/12/19 18:44 Dose: Not Given Documented by: [id number] Cosigned by: [id number] Admin: 08/12/19 12:43 Dose: Not Given Documented by: [id number] Cosigned by: [id number] Admin: 08/12/19 06:02 Dose: Not Given Documented by: [id number] Cosigned by: [id number] Admin: 08/12/19 03:29 Dose: Not Given Documented by: [id number] Cosigned by: [id number] Ketorolac Tromethamine (Toradol) 15 mg IV NOW ONE Stop: 08/14/19 10:48 Last Admin: 08/14/19 11:51 Dose: 15 mg Documented by: [id number] Ondansetron HCl (Zofran) 4 mg IV NOW STA Stop: 08/11/19 22:49 Last Admin: 08/11/19 23:00 Dose: 4 mg Documented by: [id number] Tramadol HCl (Ultram) 50 mg PO NOW STA Stop: 08/13/19 15:02 Last Admin: 08/13/19 19:59 Dose: 50 mg Documented by: [id number] Medical Decision Making Differential Diagnosis Etiologies such as biliary colic, cholecystitis, hepatitis, pancreatitis, cardiac disease, pancreatitis, gastritis, peptic ulcer disease, appendicitis, cystitis, diverticulitis, mesenteric ischemia, inflammatory bowel disease, ileus, bowel obstruction, testicular torsion, aortic pathology, shingles, as well as others were considered. Medical Records Attestation: I reviewed the patient's medical records. Home Medications Current Medication List: was personally reviewed by me Laboratory Data Attestation: I reviewed the patient's lab results. Result diagrams: 08/14/19 05:34 08/14/19 05:34 Lab Results 08/11/19 08/11/19 08/11/19 Range/Units 21:42 21:42 23:36 WBC 16.87 H (4.8-10.8) K/uL RBC 5.00 (4.7-6.1) M/uL Hgb 16.7 (14.0-18.0) g/dL Hct 49.5 (42-52) % MCV 99.0 (80-100) fL MCH 33.4 (25-34) pg MCHC 33.7 (32-36) g/dL RDW Std Deviation 50.3 H (36.4-46.3) fL RDW Coeff of Jennifer 14.0 (11.5-14.5) % Plt Count 161 (130-400) K/uL MPV 12.0 H (7.4-10.4) fL Immature Gran % (Auto) 0.7 % Neut % (Auto) 47.3 % Lymph % (Auto) 45.2 % Dunn % (Auto) 4.6 % Eos % (Auto) 1.7 % Baso % (Auto) 0.5 % Immature Gran # (Auto) 0.11 H (0.00-0.02) K/uL Neut # (Auto) 7.98 H (1.4-6.5) K/uL Lymph # (Auto) 7.63 H (1.2-3.4) K/uL Dunn # (Auto) 0.77 H (0.11-0.59) K/uL Eos # (Auto) 0.29 (0-0.5) K/uL Baso # (Auto) 0.09 (0-0.2) K/uL RBC Morphology Unremarkable Sodium 138 (136-145) mmol/L Potassium 3.7 (3.5-5.1) mmol/L Chloride 105 (98-107) mmol/L Carbon Dioxide 23 (21-32) mmol/L Anion Gap 10.0 (3-11) BUN 15 (7-18) mg/dl Creatinine 1.17 (0.6-1.4) mg/dl Est Cr Clr Drug Dosing 53.0 ml/min Est GFR ( Amer) 66.0 Est GFR (Non-Af Amer) 56.9 BUN/Creatinine Ratio 13.1 (10-20) Glucose 176 H (70-99) mg/dl Calcium 9.3 (8.5-10.1) mg/dl Total Bilirubin 0.5 (0.2-1) mg/dl AST 22 (15-37) U/L ALT 38 (12-78) U/L Alkaline Phosphatase 72 (45-117) U/L Total Protein 7.8 (6.4-8.2) gm/dl Albumin 4.0 (3.4-5.0) gm/dl Globulin 3.8 (2.5-4.0) gm/dl Albumin/Globulin Ratio 1.1 (0.9-2) Lipase 51 L (73-393) U/L Specimen Hemolysis Urine Color Yellow Urine Appearance Clear (Clear) Urine pH 5.0 (4.5-7.5) Ur Specific [place] 1.019 (1.000-1.030) Urine Protein 2+ H (Negative) Urine Glucose (UA) Negative (Negative) Urine Ketones Negative (Negative) Urine Blood Negative (Negative) Urine Nitrite Negative (Negative) Urine Bilirubin Negative (Negative) Urine Urobilinogen Negative (Negative) Ur Leukocyte Esterase Negative (Negative) Urine WBC (Auto) 0 (0-5) /hpf Urine RBC (Auto) 0-4 (0-4) /hpf U Hyaline Cast (Auto) 1-5 (0-5) /lpf U Epithel Cells (Auto) 0-5 (0-5) /lpf Urine Bacteria (Auto) Negative (Negative) Imaging Data Radiologist's Impression: Radiology results as stated below per my review and the radiologist's interpretation: CT ABDOMEN & PELVIS Without Contrast Comparison: CT abdomen and pelvis 08/01/16. Dilated and fluid-filled loops of small bowel. Small bowel feces sign in the right lower quadrant with transition to decompressed small bowl in this location. Findings suggest small bowel obstruction. No pneumatosis, pneumoperitoneum, or portal venous gas. Dependent atelectasis right lung base. Cholelithiasis. Liver, spleen, pancreas, and adrenal glands are unremarkable. Bilateral renal cysts. Largest in the right kidney measuring 14.5cm. No hydronephrosis. Appendix not visualized. Trabeculated urinary bladder wall suggesting chronic bladder outlet obstruction. Postoperative changes of the lumbar spine. Stimulator device in the left lower abdominal wall with leads extending into the thoracic spinal canal. Radiologist: Brant Morgan MD Study ready at 23:19 and initial results transmitted at 23:28. ECG Data Attestation: I personally reviewed and interpreted this ECG as follows: Indication: + abdominal pain Rate (beats per minute): 75 Rhythm: + sinus rhythm ECG Intervals/blocks: + First degree AV block and + Prolonged QT (of 489) ECG Findings: + Other (left axis deviation, incomplete RBBB, repolarization abnormality, previous inferior infarct) Blood Pressure Blood Pressure Findings: Elevated blood pressure Blood Pressure Disposition: further management by hospitalist MDM Narrative This pt was evaluated and appeared to be in no distress. IV access was obtained and lab work was drawn. PT was placed on the equipment monitor phototypesetting. IVF were initiated and pt was medicated with zofran. Lab work reveals an elevated WBC. CT imaging reveals evidence of SBO. Case was d/w the hospitalist service for further management. Impression & Plan SBO (small bowel obstruction) Discharge Plan Visit Data *Final* Discharge Date/Time: 08/12/19 02:20 Chief Complaint: Abdominal Pain Stated Complaint: AB PAIN, VOMITING ED Provider: Sara Doll Discharge Problem: SBO (small bowel obstruction) Patient Disposition: Admitted As Inpatient Discharge Instructions Interventions: ED Discharge Assessment Last Done: 08/12/19 02:20 The scribe's documentation has been prepared under my direction and personally reviewed by me in its entirety. I confirm that the note above accurately reflects all work, treatment, procedures, and medical decision making performed by me.
[2019-08-12] MEDS ORDERED: ONDANSETRON INJ 2 MG/ML 2 ML VIAL IV PRN (02:37)
[2019-08-12] MEDS: LACTATED RINGER'S 1,000 ML IV SCH ×3 (03:09→19:11)
--- NOTE | 2019-08-12 03:11 | Billing Data ---
Coding Level of Care Code 36372 Initial Inpt Care Lvl 3
[2019-08-12] MEDS ORDERED: BUPIVACAINE INFIL PRN (03:12)
[2019-08-12] MEDS ORDERED: CARBOHYDRATES FOR HYPOGLYCEMIA PO PRN (03:15)
[2019-08-12] MEDS ORDERED: DEXTROSE 50% 50 ML SYRINGE IV PRN (03:15)
[2019-08-12] MEDS ORDERED: GLUCOSE 10 TABS/TUBE PO PRN (03:15)
[2019-08-12] MEDS ORDERED: GLUCOSE 40% GEL 15 GM TUBE PO PRN (03:15)
[2019-08-12] MEDS ORDERED: GLUCAGON FOR INJ 1 MG VIAL IM PRN (03:15)
[2019-08-12] MEDS: MoRPHine SULFATE 2 MG/ML CARP IV PRN ×2 (03:22→23:29)
[2019-08-12] MEDS: INSULIN ASPART 100 UNITS/ML 3 ML PEN SC SCH ×4 (03:29→18:44)
--- NOTE | 2019-08-12 07:36 | CT Scan Report ---
CT SCAN OF THE ABDOMEN AND PELVIS WITHOUT IV CONTRAST CLINICAL HISTORY: Generalized abdominal pain. Vomiting. COMPARISON STUDY: Abdominal CT dated 08/01/2016. TECHNIQUE: CT scan of the abdomen and pelvis is performed from the lung bases to the proximal femora. Images are reviewed in the axial, sagittal, and coronal planes. IV contrast was not administered for this examination due to a reported history of contrast allergy. Note that the examination is subopti mal without oral and IV contrast. A dose lowering technique was utilized adhering to the principles o f ALARA. CT DOSE: 1402.30 mGy.cm FINDINGS: Lung bases: Midline sternotomy wires are noted. The heart is top normal in size and without pericardi al effusion. The coronary arteries are densely calcified. There is elevation of the right hemidiaphra gm and bibasilar atelectasis. No airspace consolidation or pleural effusion is seen. There is a small hiatal hernia. Gynecomastia is noted. Liver: The unenhanced liver is normal in size, contour, and attenuation. There is no intrahepatic cintia iary ductal dilatation. Gallbladder: Gallstones are noted. There is no CT evidence of acute cholecystitis. Spleen: Normal in size and attenuation. Pancreas: There is near complete fatty atrophy of the pancreas. Adrenal glands: Unremarkable. Kidneys: The unenhanced kidneys are atrophic and without hydronephrosis. There are no renal calculi i dentified. There are numerous bilateral renal cysts. The largest arises from the lower pole of the ri ght kidney and measures up to 15.3 cm. Abdominal vasculature: The abdominal aorta is normal in course and caliber noting moderate atheroscle rotic calcification. Bowel: The proximal small bowel loops are distended and fluid-filled. Scattered air-fluid levels are identified. The small bowel loops measure up to 3.8 cm in diameter. Fecalized distal small bowel is i dentified in the right lower quadrant. There is a transition point identified in the right lower quad rant on image #[id number]. The distal small bowel is decompressed, as is the colon and the appearance is con sistent with a small bowel obstruction. There is no pneumatosis intestinalis or portal venous gas. No thick walled bowel loops are identified. There are scattered colonic diverticula without CT evidence of acute diverticulitis. The appendix is not visualized. Peritoneum: There is no intraperitoneal free air or abdominal ascites. Lymphadenopathy: None. Pelvic viscera: The prostate gland is diminutive and heterogeneous. The bladder wall is thickened and trabeculated indicating chronic outlet obstruction. There are numerous small bladder diverticula. Th ere are small bilateral fat-containing inguinal hernias. Skeletal structures: The skeletal structures are osteopenic. No lytic or blastic lesions are seen. Th ere is advanced lumbosacral spondylosis. There is postoperative change from L4 -S1 spinal fusion. An intrathecal device is noted in the left lower quadrant abdominal wall. The catheter enters the centra l canal at the level of L2-L3 and extends into the thoracic region to the level of T11. IMPRESSION: 1. Findings are consistent with a small bowel obstruction. A transition point is identified in the ri ght lower quadrant. 2. No intraperitoneal free air or abdominal ascites is seen. There is no pneumatosis intestinalis or portal venous gas. 3. Cholelithiasis. 4. Hiatal hernia. 5. The appearance of the bladder indicates chronic outlet obstruction. 6. Additional findings as above. Electronically signed by: Ad Leroy M.D. 08/12/2019 7:35 AM
[2019-08-12] MEDS: EZETIMIBE 10 MG TABLET PO SCH (09:12)
[2019-08-12] MEDS: ALLOPURINOL 300 MG TAB PO SCH (09:12)
[2019-08-12] MEDS: ENOXAPARIN INJ 30 MG/0.3 ML SYR SQ SCH (09:12)
[2019-08-12] MEDS: SPIRONOLACTONE 25 MG TAB PO SCH (09:12)
[2019-08-12] MEDS: PREGABALIN 150 MG CAP PO SCH ×2 (09:12→20:01)
[2019-08-12] MEDS: PANTOprazole 40 MG TAB PO SCH (09:12)
[2019-08-12] MEDS: POTASSIUM CHLORIDE 10 MEQ TABCR PO SCH (09:12)
[2019-08-12] MEDS: GEMFIBROZIL 600 MG TAB PO SCH (09:14)
--- NOTE | 2019-08-12 10:20 | Surgery Consultation ---
Date of Consultation August 12, 2019 Assessment & Plan (1) SBO (small bowel obstruction): 84 year old male with history of prior appendectomy, umbilical hernia repair and laparotomy (for presumed anterior approach for back surgery) who presented to ED with abdominal pain that started last night. No associated nausea or vomiting. CT scan showing dilated small bowel at 3.2 cm with transition zone in RLQ with decompressed distal small bowel and colon consistent with small bowel obstruction. Leukocytosis of 16k but afebrile and hemodynamically stable. Last bowel movement normal yesterday morning. Abdomen is benign, soft, nontender, no peritonitis. Plan: Recommend conservative management at this time. IV fluids, npo for bowel rest, pain management as needed, IV Zofran as needed Advised patient OOB to chair and ambulation with office manager executive assistant to increase gi motility continue medical management will follow Dr. Driver has seen pt, agrees with above. History of Present Illness Reason for Consultation: Small bowel obstruction Requesting Physician: Tess Medellin MD Attending Physician: Tess Medellin MD History of Present Illness Basilio is a pleasant 84 year-old male with past medical history of CAD with triple bypass in 2001, DM, hypertension, hypercholesterolemia, lumbar spinal stenosis, obstructive sleep apnea, neuropathy, chronic pain who presented to emergency department last night with abdominal pain. Has history of appendectomy, umbilical hernia repair, and laparotomy for anterior approach to back surgery. Basilio states he developed general abdominal pain last night. No nausea or vomiting. Last bowel movement was yesterday morning, normal. Denies of any fever, chills, vomiting, blood in stools, or black/tarry stools. History of small bowel obstruction at least 10 years ago which was treated conservatively without surgery. ER work-up included labs which showed leukocytosis of 16K. CT scan of abdomen and pelvis without contrast showing dilated small bowel with transition zone in in the RLQ and decompressed distal small bowel and colon consistent with small bowel obstruction. No pneumatosis or portal venous gas. No pneumoperitoneum. Does have enlarged 15 cm renal cyst of right kidney. During my examination, basilio states he is comfortable. Little abdominal discomfort currently but not any pain. Denies of any nausea or vomiting. Denies of any flatus or bowel movement since admission. Allergies Allergy/AdvReac Type Severity Reaction Status Date / Time hydrochlorothiazide Allergy Severe Hives Verified 08/11/19 23:54 Iodinated Contrast Media Allergy Severe Convulsions Verified 08/11/19 23:54 adhesive Allergy Intermediate RASH;PULLS Verified 08/11/19 23:54 SKIN OFF levofloxacin Allergy Mild HIVES, Verified 08/11/19 23:54 PRURITIS NSAIDS (Non-Steroidal Allergy Mild Elevated BP Verified 08/11/19 23:54 Anti-Inflamma amiodarone Allergy Unknown RASH Verified 08/11/19 23:54 cephalexin Allergy Unknown AFTER 14 Verified 08/11/19 23:54 DAYS-DEVELOPED GASTRITIS-2017 Mxqbuyq-Qtf-Byi Reductase Allergy Unknown Unknown Verified 08/11/19 23:54 Inhibitor terazosin [From Hytrin] Allergy Unknown Unknown Verified 08/11/19 23:54 Cephalosporins AdvReac Intermediate nausea Verified 08/11/19 23:54 after repeated dose nifedipine AdvReac Intermediate Sick to Verified 08/11/19 23:54 stomach atorvastatin AdvReac Unknown MUSCLE Verified 08/11/19 23:54 ACHES doxycycline AdvReac Unknown gi upset Verified 08/11/19 23:54 Home Medications Home Medications Medication Instructions Recorded Confirmed Type acetaminophen 650 mg 1,300 mg PO Q8H PRN tab 07/01/18 08/11/19 History tablet,extended release allopurinol 300 mg tablet 300 mg PO DAILY 07/01/18 08/11/19 History aspirin 325 mg tablet 325 mg PO HS tab 07/01/18 08/11/19 History lactobacillus combination no.8 3 3,000 mmu cells PO DAILY 07/01/18 08/11/19 History billion cell capsule latanoprost 0.005 % eye drops 1 drops OP QPM 09/11/18 08/11/19 History potassium chloride 10 mEq 10 meq PO DAILY tab 04/15/19 08/11/19 History tablet,extended release bupivacaine 0.25 % (2.5 mg/mL) See Rx Instructions .ROUTE 05/18/19 08/11/19 Rx injection solution .COMPLEX #50 ml zolpidem 5 mg tablet 5 mg PO HS #90 tab 05/18/19 08/11/19 Rx pantoprazole 40 mg tablet,delayed 40 mg PO DAILY #180 tab 06/26/19 08/11/19 Rx release ezetimibe 10 mg tablet 10 mg PO DAILY #90 tab 07/21/19 08/11/19 Rx glipizide 10 mg tablet, extended 10 mg PO BID #180 tab 07/28/19 08/11/19 Rx release 24 hr spironolactone 50 mg tablet 50 mg PO DAILY #90 tab 07/28/19 08/11/19 Rx pregabalin 150 mg capsule 150 mg PO BID #180 cap 07/31/19 08/11/19 Rx gemfibrozil 300 mg PO BID 08/11/19 08/11/19 History Patient History Medical History CAD (coronary artery disease) (Chronic) Cataracts, bilateral (Chronic) Chronic intractable pain (Chronic) Chronic leg pain (Chronic) Coronary artery disease, occlusive (Chronic) Diabetes mellitus (Chronic) Gastroesophageal reflux disease (Chronic) Gastropathy (Chronic) Glaucoma (Chronic) Gout, joint (Chronic) Hypercholesterolemia (Chronic) Hyperlipidemia (Chronic) Hypertension (Chronic) Hypertension (Chronic) Incisional hernia (Chronic) Low back pain (Chronic) Lumbar postlaminectomy syndrome (Chronic) Lumbar spinal stenosis (Chronic) Lung nodule (Chronic) Muscle weakness (generalized) (Chronic) Neuropathy (Chronic) Obstructive sleep apnea (Chronic) Osteoarthritis (Chronic) Peripheral neuropathy (Chronic) Sleep apnea (Chronic) Sleep apnea (Chronic) 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) Umbilical hernia (Resolved) 2006 Surgical History History of appendectomy (Chronic) 194 History of back surgery (Chronic) x4 laminectomy 1984; AL Fusion L5-S1 1988; L4, L5 S1 [id number]; S/P triple vessel bypass (Chronic) 2001 Status post right partial knee replacement (Chronic) partial 2005 Social History Preferred Language: Ivorian Communication Ability: Effective Visual Impairment: Limited Hearing Ability: Normal Beliefs That Will Affect Care: None marital status: Current Living Situation: Spouse current occupational status: retired Other Information That Helps Us Care for You: No Feels Safe at Home: Yes Safety Concerns: Feels Safe At This Time Smoking Status: Former smoker Second Hand Exposure: No ; Tobacco Cessation Education Requested by Patient: No Hx Alcohol Use: Yes Alcohol type: wine Hx Substance Use: No Review of Systems Review of Systems: All systems reviewed & are unremarkable except as noted in HPI & below Physical Exam Constitutional: WD/WN, vitals as above no acute distress Respiratory: + abnormal respiratory effort and no respiratory distress Gastrointestinal (Abdomen): Inspection/Auscultation: abdomen normal to inspection; abdomen not distended and + abnormal bowel sounds Percussion/Palpation: abdomen soft; abdomen nontender, no guarding and abdomen not rigid Skin: no rashes, warm and dry Psychiatric: A+Ox3, euthymic affect Results & Data Vital Signs (Past 12 Hours) Vital Signs Temp Pulse Pulse Pulse Resp BP BP 08/12/19 07:20 36.7 C 77 14 114/80 08/12/19 02:48 36.6 C 69 16 157/74 H 08/12/19 01:30 85 11 L 134/81 08/12/19 01:00 89 21 150/97 H 08/12/19 00:30 83 12 125/72 08/12/19 00:00 81 13 127/82 08/11/19 23:30 76 16 154/104 H 08/11/19 23:01 81 16 143/90 H 08/11/19 22:57 08/11/19 22:30 74 17 145/83 H 08/11/19 22:27 Pulse Ox 08/12/19 07:20 92 08/12/19 02:48 92 08/12/19 01:30 96 08/12/19 01:00 97 08/12/19 00:30 95 08/12/19 00:00 96 08/11/19 23:30 99 08/11/19 23:01 94 08/11/19 22:57 95 08/11/19 22:30 95 08/11/19 22:27 87 L Laboratory Results 08/12/19 08/12/19 08/12/19 Range/Units 12:10 05:54 03:19 WBC (4.8-10.8) K/uL RBC (4.7-6.1) M/uL Hgb (14.0-18.0) g/dL Hct (42-52) % MCV (80-100) fL MCH (25-34) pg MCHC (32-36) g/dL RDW Std Deviation (36.4-46.3) fL RDW Coeff of Jennifer (11.5-14.5) % Plt Count (130-400) K/uL MPV (7.4-10.4) fL Immature Gran % (Auto) % Neut % (Auto) % Lymph % (Auto) % [place] % (Auto) % Eos % (Auto) % Baso % (Auto) % Immature Gran # (Auto) (0.00-0.02) K/uL Neut # (Auto) (1.4-6.5) K/uL Lymph # (Auto) (1.2-3.4) K/uL [place] # (Auto) (0.11-0.59) K/uL Eos # (Auto) (0-0.5) K/uL Baso # (Auto) (0-0.2) K/uL RBC Morphology Sodium (136-145) mmol/L Potassium (3.5-5.1) mmol/L Chloride (98-107) mmol/L Carbon Dioxide (21-32) mmol/L Anion Gap (3-11) BUN (7-18) mg/dl Creatinine (0.6-1.4) mg/dl Est Cr Clr Drug Dosing ml/min Est GFR ( Amer) Est GFR (Non-Af Amer) BUN/Creatinine Ratio (10-20) Glucose (70-99) mg/dl POC Glucose 147 H 145 H 153 H (70-99) Calcium (8.5-10.1) mg/dl Total Bilirubin (0.2-1) mg/dl AST (15-37) U/L ALT (12-78) U/L Alkaline Phosphatase (45-117) U/L Total Protein (6.4-8.2) gm/dl Albumin (3.4-5.0) gm/dl Globulin (2.5-4.0) gm/dl Albumin/Globulin Ratio (0.9-2) Lipase (73-393) U/L Specimen Hemolysis Urine Color Urine Appearance (Clear) Urine pH (4.5-7.5) Ur Specific [place] (1.000-1.030) Urine Protein (Negative) Urine Glucose (UA) (Negative) Urine Ketones (Negative) Urine Blood (Negative) Urine Nitrite (Negative) Urine Bilirubin (Negative) Urine Urobilinogen (Negative) Ur Leukocyte Esterase (Negative) Urine WBC (Auto) (0-5) /hpf Urine RBC (Auto) (0-4) /hpf U Hyaline Cast (Auto) (0-5) /lpf U Epithel Cells (Auto) (0-5) /lpf Urine Bacteria (Auto) (Negative) 08/11/19 08/11/19 08/11/19 Range/Units 23:36 21:42 21:42 WBC 16.87 H (4.8-10.8) K/uL RBC 5.00 (4.7-6.1) M/uL Hgb 16.7 (14.0-18.0) g/dL Hct 49.5 (42-52) % MCV 99.0 (80-100) fL MCH 33.4 (25-34) pg MCHC 33.7 (32-36) g/dL RDW Std Deviation 50.3 H (36.4-46.3) fL RDW Coeff of Jennifer 14.0 (11.5-14.5) % Plt Count 161 (130-400) K/uL MPV 12.0 H (7.4-10.4) fL Immature Gran % (Auto) 0.7 % Neut % (Auto) 47.3 % Lymph % (Auto) 45.2 % [place] % (Auto) 4.6 % Eos % (Auto) 1.7 % Baso % (Auto) 0.5 % Immature Gran # (Auto) 0.11 H (0.00-0.02) K/uL Neut # (Auto) 7.98 H (1.4-6.5) K/uL Lymph # (Auto) 7.63 H (1.2-3.4) K/uL [place] # (Auto) 0.77 H (0.11-0.59) K/uL Eos # (Auto) 0.29 (0-0.5) K/uL Baso # (Auto) 0.09 (0-0.2) K/uL RBC Morphology Unremarkable Sodium 138 (136-145) mmol/L Potassium 3.7 (3.5-5.1) mmol/L Chloride 105 (98-107) mmol/L Carbon Dioxide 23 (21-32) mmol/L Anion Gap 10.0 (3-11) BUN 15 (7-18) mg/dl Creatinine 1.17 (0.6-1.4) mg/dl Est Cr Clr Drug Dosing 53.0 ml/min Est GFR ( Amer) 66.0 Est GFR (Non-Af Amer) 56.9 BUN/Creatinine Ratio 13.1 (10-20) Glucose 176 H (70-99) mg/dl POC Glucose (70-99) Calcium 9.3 (8.5-10.1) mg/dl Total Bilirubin 0.5 (0.2-1) mg/dl AST 22 (15-37) U/L ALT 38 (12-78) U/L Alkaline Phosphatase 72 (45-117) U/L Total Protein 7.8 (6.4-8.2) gm/dl Albumin 4.0 (3.4-5.0) gm/dl Globulin 3.8 (2.5-4.0) gm/dl Albumin/Globulin Ratio 1.1 (0.9-2) Lipase 51 L (73-393) U/L Specimen Hemolysis Urine Color Yellow Urine Appearance Clear (Clear) Urine pH 5.0 (4.5-7.5) Ur Specific [place] 1.019 (1.000-1.030) Urine Protein 2+ H (Negative) Urine Glucose (UA) Negative (Negative) Urine Ketones Negative (Negative) Urine Blood Negative (Negative) Urine Nitrite Negative (Negative) Urine Bilirubin Negative (Negative) Urine Urobilinogen Negative (Negative) Ur Leukocyte Esterase Negative (Negative) Urine WBC (Auto) 0 (0-5) /hpf Urine RBC (Auto) 0-4 (0-4) /hpf U Hyaline Cast (Auto) 1-5 (0-5) /lpf U Epithel Cells (Auto) 0-5 (0-5) /lpf Urine Bacteria (Auto) Negative (Negative) Diagnostic Findings CT SCAN OF THE ABDOMEN AND PELVIS WITHOUT IV CONTRAST CLINICAL HISTORY: Generalized abdominal pain. Vomiting. COMPARISON STUDY: Abdominal CT dated 08/01/2016. TECHNIQUE: CT scan of the abdomen and pelvis is performed from the lung bases to the proximal femora. Images are reviewed in the axial, sagittal, and coronal planes. IV contrast was not administered for this examination due to a reported history of contrast allergy. Note that the examination is suboptimal without oral and IV contrast. A dose lowering technique was utilized adhering to the principles of ALARA. CT DOSE: 1402.30 mGy.cm FINDINGS: Lung bases: Midline sternotomy wires are noted. The heart is top normal in size and without pericardial effusion. The coronary arteries are densely calcified. There is elevation of the right hemidiaphragm and bibasilar atelectasis. No airspace consolidation or pleural effusion is seen. There is a small hiatal hernia. Gynecomastia is noted. Liver: The unenhanced liver is normal in size, contour, and attenuation. There is no intrahepatic biliary ductal dilatation. Gallbladder: Gallstones are noted. There is no CT evidence of acute cholecystitis. Spleen: Normal in size and attenuation. Pancreas: There is near complete fatty atrophy of the pancreas. Adrenal glands: Unremarkable. Kidneys: The unenhanced kidneys are atrophic and without hydronephrosis. There are no renal calculi identified. There are numerous bilateral renal cysts. The l argest arises from the lower pole of the right kidney and measures up to 15.3 cm. Abdominal vasculature: The abdominal aorta is normal in course and caliber noting moderate atherosclerotic calcification. Bowel: The proximal small bowel loops are distended and fluid-filled. Scattered air-fluid levels are identified. The small bowel loops measure up to 3.8 cm in diameter. Fecalized distal small bowel is identified in the right lower quadrant. There is a transition point identified in the right lower quadrant on image #[id number]. The distal small bowel is decompressed, as is the colon and the appearance is consistent with a small bowel obstruction. There is no pneumatosis intestinalis or portal venous gas. No thick walled bowel loops are identified. There are scattered colonic diverticula without CT evidence of acute diverticulitis. The appendix is not visualized. Peritoneum: There is no intraperitoneal free air or abdominal ascites. Lymphadenopathy: None. Pelvic viscera: The prostate gland is diminutive and heterogeneous. The bladder wall is thickened and trabeculated indicating chronic outlet obstruction. There are numerous small bladder diverticula. There are small bilateral fat-containing inguinal hernias. Skeletal structures: The skeletal structures are osteopenic. No lytic or blastic lesions are seen. There is advanced lumbosacral spondylosis. There is postoperative change from L4 -S1 spinal fusion. An intrathecal device is noted in the left lower quadrant abdominal wall. The catheter enters the central canal at the level of L2-L3 and extends into the thoracic region to the level of T11. IMPRESSION: 1. Findings are consistent with a small bowel obstruction. A transition point is identified in the right lower quadrant. 2. No intraperitoneal free air or abdominal ascites is seen. There is no pneumatosis intestinalis or portal venous gas. 3. Cholelithiasis. 4. Hiatal hernia. 5. The appearance of the bladder indicates chronic outlet obstruction. 6. Additional findings as above.
--- NOTE | 2019-08-12 16:27 | History & Physical Bridge Note ---
Date of Service August 12, 2019 History & Physical Bridge Note I have examined the patient, reviewed the History & Physical and in the interval since the performance of the History & Physical I have noted the following changes of clinical significance: Patient with previous SBO 7-8 years ago with similar presentation that did not require intervention. Abdominal pain had been a 7/10 and has decreased to a 4/10 this afternoon. Large formed stool yesterday morning, without flatus or BM since that time. Had episode of emesis without hematochezia or coffee-ground appearance. Usually is able to have regular bowel movements with "3 dried apricots a day". Resp: CTAB, no wheezes, crackles or rhonchi Cardio: RRR, no murmur, rub or gallop : Abdomen soft, nontender. Hypoactive bowel sounds RLQ. A/P 1) SBO -- General surgery consulted -- conservative treatment, will hold off NGT at this time. -- Continue IVF, NPO x meds, pain control, zofran for nausea -- Encourage ambulation with assistance Renal Cyst -- Evidence of 15mm renal cyst. Has never been seen by Urology-- will need follow-up -- CT with evidence of chronic outlet obstruction, however patient without symptoms of urinary hesitancy or inability to void until this admission. Req st cath in ER -- Will continue to monitor for urinary retention - could be secondary to current SBO *Also, patient take mucinex DM BID to thin secretions -- ordered as such Supervising Physician Co-Signing Physician Notes PA Supervision Note: I did not personally see or examine the patient today, but I verified all soler points of ISRAEL Espinosa's assessment and plan with the following exceptions/additions: With possible CLL as cause of leukocytosis/lymphocytosis -continue care for SBO as above
[2019-08-12] MEDS: ZOLPIDEM TARTRATE 5 MG TAB PO SCH (20:01)
[2019-08-12] MEDS: ASPIRIN 325 MG ECTAB PO SCH (20:01)
[2019-08-12] MEDS: guaiFENesin 600 MG TABCR PO SCH (20:01)
[2019-08-12] MEDS: LATANOPROST 0.005% OP SOLN 2.5 ML BTL OP SCH (20:02)
[2019-08-12] MEDS: metroNIDAZOLE 500 MG/100 ML BAG IV SCH (21:31)
[2019-08-12] MEDS: CIPROFLOXACIN 400 MG/200 ML BAG IV SCH (22:40)
[2019-08-13] MEDS: INSULIN ASPART 100 UNITS/ML 3 ML PEN SC SCH ×4 (00:10→18:05)
[2019-08-13] MEDS: LACTATED RINGER'S 1,000 ML IV SCH ×3 (02:14→21:27)
[2019-08-13] MEDS: metroNIDAZOLE 500 MG/100 ML BAG IV SCH ×3 (05:13→21:37)
[2019-08-13 05:39] LABS: Basophils # (auto) 0.06 K/uL (0-0.2); Basophils % (auto) 0.5 %; Eosinophils # (auto) 0.36 K/uL (0-0.5); Eosinophils % (auto) 3.2 %; Hemoglobin 13.5 g/dL (14.0-18.0); Immature Granulocytes # (auto) 0.02 K/uL (0.00-0.02); Immature Granulocytes % (auto) 0.2 %; Mean Corpuscular Hemoglobin 32.3 pg (25-34); Mean Corpuscular Hgb Conc 32.1 g/dL (32-36); Mean Corpuscular Volume 100.5 fL (80-100); Mean Platelet Volume 11.2 fL (7.4-10.4); Monocytes # (auto) 0.59 K/uL (0.11-0.59); Monocytes % (auto) 5.2 %; Neutrophils # (auto) 5.46 K/uL (1.4-6.5); Neutrophils % (auto) 47.9 %; Platelet Count 135 K/uL (130-400); RDW Coefficient of Variation 14.1 % (11.5-14.5); Red Blood Count 4.18 M/uL (4.7-6.1); White Blood Count 11.39 K/uL (4.8-10.8)
[2019-08-13 05:50] LABS: BUN Creatinine Ratio 14.2 (10-20); Calcium 8.7 mg/dl (8.5-10.1); Creatinine Clr Calc Pharmacy 57.9 ml/min; Est GFR (African American) 75.2; Est GFR (Non-African American) 64.9; Potassium 3.9 mmol/L (3.5-5.1)
[2019-08-13] MEDS: ACETAMINOPHEN 325 MG TAB PO PRN ×2 (08:18→23:17)
[2019-08-13] MEDS: ALLOPURINOL 300 MG TAB PO SCH (08:20)
[2019-08-13] MEDS: PANTOprazole 40 MG TAB PO SCH (08:20)
[2019-08-13] MEDS: guaiFENesin 600 MG TABCR PO SCH ×2 (08:20→21:44)
[2019-08-13] MEDS: PREGABALIN 150 MG CAP PO SCH ×2 (08:22→21:47)
[2019-08-13] MEDS: ENOXAPARIN INJ 30 MG/0.3 ML SYR SQ SCH (08:23)
[2019-08-13] MEDS ORDERED: BISACODYL 10 MG SUPP PR STA (09:14)
--- NOTE | 2019-08-13 09:54 | Surgery Progress Note ---
Date of Service August 13, 2019 Assessment & Plan (1) SBO (small bowel obstruction): Partial SBO -vitals stable, afebrile, leukocytosis improved - passed gas yesterday, no bowel movement yet - no n/v, minimal abdominal pain but mildly distended Plan: continue conservative measures. Dulcolax suppository one time continue OOB to chair and ambulation with assistance Patient stated if he would need surgery he likely would want to go to [place]. Should also consider cardiology consult for clearance if surgery needed given his CAD and hx of triple bypass. continue medical management Dr. Driver has seen patient , agrees with above. Subjective feeling good abdominal pain about the same today but minimal no nausea or vomiting states he felt he had to have bowel movement twice last night but didn't happen and did not want to strain Takes Sennokot at home daily Review of Systems Review of Systems: All systems reviewed & are unremarkable except as noted in HPI & below Physical Exam Constitutional: WD/WN, vitals as above no acute distress Respiratory: normal respiratory effort; no respiratory distress and no labored breathing Gastrointestinal (Abdomen): Inspection/Auscultation: + abdomen distended (mild to moderate in central abdomen), + abdominal surgical scar (midline laparotomy scar, infraumbilical, and RLQ) and + hypoactive bowel sounds (but improved compared to yesterday) Percussion/Palpation: abdomen soft; abdomen nontender, no guarding and abdomen not rigid Skin: no rashes, warm and dry Psychiatric: A+Ox3, euthymic affect Results & Data Vital Signs (Past 12 Hours) Vital Signs Temp Pulse Resp BP Pulse Ox 08/13/19 07:39 36.4 C L 53 L 16 138/67 91 08/12/19 22:58 36.6 C 73 17 145/74 H 92 Laboratory Results 08/13/19 08/13/19 08/13/19 Range/Units 06:11 05:14 05:14 WBC 11.39 H (4.8-10.8) K/uL RBC 4.18 L (4.7-6.1) M/uL Hgb 13.5 L D (14.0-18.0) g/dL Hct 42.0 (42-52) % MCV 100.5 H (80-100) fL MCH 32.3 (25-34) pg MCHC 32.1 (32-36) g/dL RDW Std Deviation 51.0 H (36.4-46.3) fL RDW Coeff of Jennifer 14.1 (11.5-14.5) % Plt Count 135 (130-400) K/uL MPV 11.2 H (7.4-10.4) fL Immature Gran % (Auto) 0.2 % Neut % (Auto) 47.9 % Lymph % (Auto) 43.0 % [place] % (Auto) 5.2 % Eos % (Auto) 3.2 % Baso % (Auto) 0.5 % Immature Gran # (Auto) 0.02 (0.00-0.02) K/uL Neut # (Auto) 5.46 (1.4-6.5) K/uL Lymph # (Auto) 4.90 H (1.2-3.4) K/uL [place] # (Auto) 0.59 (0.11-0.59) K/uL Eos # (Auto) 0.36 (0-0.5) K/uL Baso # (Auto) 0.06 (0-0.2) K/uL Sodium 138 (136-145) mmol/L Potassium 3.9 (3.5-5.1) mmol/L Chloride 107 (98-107) mmol/L Carbon Dioxide 27 (21-32) mmol/L Anion Gap 4.0 (3-11) BUN 15 (7-18) mg/dl Creatinine 1.05 (0.6-1.4) mg/dl Est Cr Clr Drug Dosing 57.9 ml/min Est GFR ( Amer) 75.2 Est GFR (Non-Af Amer) 64.9 BUN/Creatinine Ratio 14.2 (10-20) Glucose 129 H (70-99) mg/dl POC Glucose 138 H (70-99) Calcium 8.7 (8.5-10.1) mg/dl 08/13/19 08/12/19 08/12/19 Range/Units 00:07 18:10 12:10 WBC (4.8-10.8) K/uL RBC (4.7-6.1) M/uL Hgb (14.0-18.0) g/dL Hct (42-52) % MCV (80-100) fL MCH (25-34) pg MCHC (32-36) g/dL RDW Std Deviation (36.4-46.3) fL RDW Coeff of Jennifer (11.5-14.5) % Plt Count (130-400) K/uL MPV (7.4-10.4) fL Immature Gran % (Auto) % Neut % (Auto) % Lymph % (Auto) % [place] % (Auto) % Eos % (Auto) % Baso % (Auto) % Immature Gran # (Auto) (0.00-0.02) K/uL Neut # (Auto) (1.4-6.5) K/uL Lymph # (Auto) (1.2-3.4) K/uL [place] # (Auto) (0.11-0.59) K/uL Eos # (Auto) (0-0.5) K/uL Baso # (Auto) (0-0.2) K/uL Sodium (136-145) mmol/L Potassium (3.5-5.1) mmol/L Chloride (98-107) mmol/L Carbon Dioxide (21-32) mmol/L Anion Gap (3-11) BUN (7-18) mg/dl Creatinine (0.6-1.4) mg/dl Est Cr Clr Drug Dosing ml/min Est GFR ( Amer) Est GFR (Non-Af Amer) BUN/Creatinine Ratio (10-20) Glucose (70-99) mg/dl POC Glucose 161 H 123 H 147 H (70-99) Calcium (8.5-10.1) mg/dl
[2019-08-13] MEDS: CIPROFLOXACIN 400 MG/200 ML BAG IV SCH ×2 (09:57→21:27)
--- NOTE | 2019-08-13 12:46 | Cardiology Consultation ---
Date of Consultation August 13, 2019 Assessment & Plan (1) CAD, multiple vessel: (2) S/P CABG x 3: (3) Hypertension: (4) Hypercholesterolemia: (5) SBO (small bowel obstruction): (6) Preoperative cardiovascular examination: Mr. Wiggins is an 84 year old male with a history of Hypertension, Dyslipidemia (statin intolerant), Type 2 DM with Neuropathy, GERD, Spinal Stenosis, and Obstructive Sleep Apnea who was admitted to [facility] on 08/12/2019 with a partial SBO. At the present time he is being managed conservatively with bowel rest, IVF's, etc.. Patient states that he has been "good" from a cardiac standpoint. He is limited in his activities by his neuropathy and spinal stenosis, but he still ride his recumbent exercise bike every other day for 30 minutes at variable levels of intensity. Patient has not experienced any angina pectoris or anginal equivalent symptoms, overt signs or symptoms of heart failure, nor has he had any symptoms suggestive dysrhythmia. He is compliant with his medications and has not had any adverse side effects. Based on his functional status without limiting cardiopulmonary symptoms and stable EKG tracing -- patient is at an intermediate cardiac risk for this potential abdominal surgery. There is no need for further evaluation at this time. Thank you for asking us to see this patient in consultation. Supervising Physician Co-Signing Physician Notes Robe Lambert MD History of Present Illness Reason for Consultation: -- Preoperative Cardiology Evaluation. -- CAD s/p CABG x 3 Vessels 2001. Requesting Physician: Tess Medellin MD Attending Physician: Robe Lambert MD History of Present Illness Mr. Wiggins is an 84 year old male with a history of Hypertension, Dyslipidemia (statin intolerant), Type 2 DM with Neuropathy, GERD, Spinal Stenosis, and Obstructive Sleep Apnea who was admitted to [facility] on 08/12/2019 with a partial SBO. At the present time he is being managed conservatively with bowel rest, IVF's, etc.. Patient states that he has been "good" from a cardiac standpoint. He is limited in his activities by his neuropathy and spinal stenosis, but he still ride his recumbent exercise bike every other day for 30 minutes with variable levels of intensity. He does admit to mild chronic PATTERSON but this is stable. He denies any exertional chest pain, heaviness, tightness, pressure, or angina pectoris. He denies any SOB at rest, unusual PATTERSON, orthopnea, or pnd. No palpitations, syncope, or near syncope. Allergies Allergy/AdvReac Type Severity Reaction Status Date / Time hydrochlorothiazide Allergy Severe Hives Verified 08/11/19 23:54 Iodinated Contrast Media Allergy Severe Convulsions Verified 08/11/19 23:54 adhesive Allergy Intermediate RASH;PULLS Verified 08/11/19 23:54 SKIN OFF levofloxacin Allergy Mild HIVES, Verified 08/11/19 23:54 PRURITIS NSAIDS (Non-Steroidal Allergy Mild Elevated BP Verified 08/11/19 23:54 Anti-Inflamma amiodarone Allergy Unknown RASH Verified 08/11/19 23:54 cephalexin Allergy Unknown AFTER 14 Verified 08/11/19 23:54 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 Oweyfrk-Nav-Rmr Reductase Allergy Unknown Unknown Verified 08/11/19 23:54 Inhibitor terazosin [From Hytrin] Allergy Unknown Unknown Verified 08/11/19 23:54 Cephalosporins AdvReac Intermediate nausea Verified 08/11/19 23:54 after repeated dose nifedipine AdvReac Intermediate Sick to Verified 08/11/19 23:54 stomach atorvastatin AdvReac Unknown MUSCLE Verified 08/11/19 23:54 ACHES doxycycline AdvReac Unknown gi upset Verified 08/11/19 23:54 Home Medications Home Medications Medication Instructions Recorded Confirmed Type acetaminophen 650 mg 1,300 mg PO Q8H PRN tab 07/01/18 08/11/19 History tablet,extended release allopurinol 300 mg tablet 300 mg PO DAILY 07/01/18 08/11/19 History aspirin 325 mg tablet 325 mg PO HS tab 07/01/18 08/11/19 History lactobacillus combination no.8 3 3,000 mmu cells PO DAILY 07/01/18 08/11/19 History billion cell capsule latanoprost 0.005 % eye drops 1 drops OP QPM 09/11/18 08/11/19 History potassium chloride 10 mEq 10 meq PO DAILY tab 04/15/19 08/11/19 History tablet,extended release bupivacaine 0.25 % (2.5 mg/mL) See Rx Instructions .ROUTE 05/18/19 08/11/19 Rx injection solution .COMPLEX #50 ml zolpidem 5 mg tablet 5 mg PO HS #90 tab 05/18/19 08/11/19 Rx pantoprazole 40 mg tablet,delayed 40 mg PO DAILY #180 tab 06/26/19 08/11/19 Rx release ezetimibe 10 mg tablet 10 mg PO DAILY #90 tab 07/21/19 08/11/19 Rx glipizide 10 mg tablet, extended 10 mg PO BID #180 tab 07/28/19 08/11/19 Rx release 24 hr spironolactone 50 mg tablet 50 mg PO DAILY #90 tab 07/28/19 08/11/19 Rx pregabalin 150 mg capsule 150 mg PO BID #180 cap 07/31/19 08/11/19 Rx gemfibrozil 300 mg PO BID 08/11/19 08/11/19 History Patient History Medical History CAD (coronary artery disease) (Chronic) Cataracts, bilateral (Chronic) Chronic intractable pain (Chronic) Chronic leg pain (Chronic) Coronary artery disease, occlusive (Chronic) Diabetes mellitus (Chronic) Gastroesophageal reflux disease (Chronic) Gastropathy (Chronic) Glaucoma (Chronic) Gout, joint (Chronic) Hypercholesterolemia (Chronic) Hyperlipidemia (Chronic) Hypertension (Chronic) Hypertension (Chronic) Incisional hernia (Chronic) Low back pain (Chronic) Lumbar postlaminectomy syndrome (Chronic) Lumbar spinal stenosis (Chronic) Lung nodule (Chronic) Muscle weakness (generalized) (Chronic) Neuropathy (Chronic) Obstructive sleep apnea (Chronic) Osteoarthritis (Chronic) Peripheral neuropathy (Chronic) Sleep apnea (Chronic) Sleep apnea (Chronic) 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) Umbilical hernia (Resolved) 2006 Surgical History History of appendectomy (Chronic) 194 History of back surgery (Chronic) x4 laminectomy 1984; AL Fusion L5-S1 1988; L4, L5 S1 [id number]; S/P triple vessel bypass (Chronic) 2001 Status post right partial knee replacement (Chronic) partial 2005 Social History Preferred Language: Swedish Communication Ability: Effective Visual Impairment: Limited Hearing Ability: Normal Beliefs That Will Affect Care: None marital status: Current Living Situation: Spouse current occupational status: retired Other Information That Helps Us Care for You: No Feels Safe at Home: Yes Safety Concerns: Feels Safe At This Time Smoking Status: Former smoker Second Hand Exposure: No ; Tobacco Cessation Education Requested by Patient: No Hx Alcohol Use: Yes Alcohol type: wine Hx Substance Use: No Physical Exam Physical Exam: GENERAL: Patient in no acute distress. HEENT: Head is atraumatic, normocephalic. EOM's intact. Facies symmetric. No perioral cyanosis. NECK: No JVD. JVP is at the level of the clavicle sitting upright. Carotid upstrokes are + 2 bilaterally. No bruits are noted. CHEST/LUNGS: Clear to auscultation throughout all lung [place]. No wheezes, rales, or crackles. CVS: S1 and S2 are regular with an S4 gallop. No obvious murmurs or rubs. PMI is nondisplaced. No lifts, heaves, or thrills. No abdominal aortic or renal bruits. ABDOMINAL EXAM: Abdomen appears distended. No masses, organomegaly, or tenderness. EXTREMITIES: No clubbing or cyanosis. No edema. Intact radial pulses bilat erally. NEUROLOGIC EXAM: Patient is awake, alert, and oriented. Pleasant and cooperative. Answers questions appropriately. Speech is clear. Normal movement in all 4 extremities. Gait pattern was not assessed. EKG 08/11/2019: -- NSR with 1st degree AV block at 75 bpm. -- Incomplete RBBB. -- Inferior infarct pattern age indeterminate. Results & Data Vital Signs (Past 12 Hours) Vital Signs Temp Pulse Resp BP Pulse Ox 08/13/19 07:39 36.4 C L 53 L 16 138/67 91 PG Care Time/CCT Total # of Minutes Spent Total Time Spent with Patient: Total time spent is greater than 50% in coordination of care (as documented) at patient's floor/unit and/or counseling patient:
[2019-08-13] MEDS: MoRPHine SULFATE 2 MG/ML CARP IV PRN (13:18)
--- NOTE | 2019-08-13 13:55 | Hospitalist Progress Note ---
Date of Service August 13, 2019 Assessment & Plan (1) SBO (small bowel obstruction): * CT Abd/pelvis consistent with SBO with transition point RLQ -- likely secondary to adhesions from previous appendectomy, spinal surgery (anterior approach per patient as well as pain pump placement). Also, previous SBO 7-8 years ago in [place] with spontaneous resolution * NPO except meds * Pain control- morphine, ultram x 1 -- patient with pain pump * General surgery on consult-- conservative management at this time, no NGT at this time -- appreciate input * Placed on IV Cipro/Flagyl at recommendation by surgery * Dulcolayx suppository today * LR @ 125ml/hr * Consider KUB in AM if patient continues without improvement -- patient declined and order was cancelled by surgeon (2) Hypertension: * Currently stable, but elevated at 150/75 * Spironolactone, KCl held in setting of SBO * Will continue to monitor (3) Leukocytosis: * Chronic, dating back to 2013 with associated elevated lymphocytes and presence of smudge cells * Previous recommendations for outpatient follow-up with dice maker * Follows with Dr. 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, [address] [place] [facility] [place] * Patient has intrathecal pain pump (8) Obstructive sleep apnea: * Patient with CPAP and nasal pillows at home, although per conversation he does not regularly utilize * Ordered CPAP * Encouraged to utilize (9) History of appendectomy: (10) History of back surgery: * As above (11) S/P triple vessel bypass: * As above- 2001 (12) Umbilical hernia: * Present- patient states this has enlarged over the past several years-- states it was a fat containing hernia. Non tender (13) Presence of intrathecal baclofen pump: * As above- bupivacaine (14) Gastroesophageal reflux disease: * Continue home protonix (15) Gout, joint: * Continue allopurinol (16) Hypercholesterolemia: * hold ezetimibe (17) DVT prophylaxis: * Lovenox SQ Dispo: discharge pending on resolution of SBO vs surgical intervention after further evaluation Supervising Physician Co-Signing Physician Notes PA Supervision Note: I did not personally see or examine the patient today, but I verified all soler points of ISRAEL Espinosa's assessment and plan with the following exceptions/additions: None Subjective Patient evaluated at bedside this morning. He continues to have abdominal pain. Improved from admission but he states it continues to be a dull 4/10 pain. He not had a bowel movement or flatus. He confirms he was able to void without difficulty and has not required any further catheterizations outside of his initial episode in the emergency room. He states he did not sleep well last night. He did say he refused a CPAP from the hospital and he states he is not very faithful about using it at home either . His , also present, states he sometimes will try to use it and then gets uncomfortable and takes the nasal pillows off. Concerns regarding bills from providers outside [facility] [place]. If obstruction does not resolve with conservative treatment and surgery were to be necessary, he would like to have it done at [facility] unless Dr. Guzman were to be available/willing. Regarding persistent leukocytosis/lymphocystosis, the patient and state that Dr. Neil is aware and continues to monitor. Patient states it could be "pre-curser to cancer but I get labs every 3 months" and does not feel he needs to follow up with dice maker at this time Review of Systems Constitutional: no fever, no chills and no weight loss Respiratory: no cough and no dyspnea Cardiovascular: no chest pain, no palpitations and no edema Gastrointestinal: + abdominal pain and + constipation; no vomiting Genitourinary: no dysuria and no difficulty urinating Musculoskeletal: + back pain Integumentary: no rash and no lesions Neurologic: chronic numbness/tingling in b/l LE Endocrine: no cold intolerance and no heat intolerance Physical Exam Constitutional: WD/WN, vitals as above + obese; no acute distress Neck: trachea midline, no thyromegaly Respiratory: normal respiratory effort, lungs clear to auscultation no respiratory distress Cardiovascular: Rate/Rhythm: regular rate and regular rhythm Heart Sounds: normal S1, normal S2 and + gallop (S4) Gastrointestinal (Abdomen): Inspection/Auscultation: + hypoactive bowel sounds Percussion/Palpation: + abdomen tender (minimally tender) and abdomen soft; no guarding, abdomen not rigid and no hepatosplenomegaly pain pump present L LQ umbilical hernia present- reducible, non-tender Skin: no rashes, warm and dry Psychiatric: A+Ox3, euthymic affect Lymphatic: no cervical or axillary lymphadenopathy Results & Data Vital Signs (Past 12 Hours) Vital Signs Temp Pulse Resp BP Pulse Ox 08/13/19 07:39 36.4 C L 53 L 16 138/67 91 Laboratory Results 08/13/19 08/13/19 08/13/19 Range/Units 11:58 06:11 05:14 WBC (4.8-10.8) K/uL RBC (4.7-6.1) M/uL Hgb (14.0-18.0) g/dL Hct (42-52) % MCV (80-100) fL MCH (25-34) pg MCHC (32-36) g/dL RDW Std Deviation (36.4-46.3) fL RDW Coeff of Jennifer (11.5-14.5) % Plt Count (130-400) K/uL MPV (7.4-10.4) fL Immature Gran % (Auto) % Neut % (Auto) % Lymph % (Auto) % Summit % (Auto) % Eos % (Auto) % Baso % (Auto) % Immature Gran # (Auto) (0.00-0.02) K/uL Neut # (Auto) (1.4-6.5) K/uL Lymph # (Auto) (1.2-3.4) K/uL Summit # (Auto) (0.11-0.59) K/uL Eos # (Auto) (0-0.5) K/uL Baso # (Auto) (0-0.2) K/uL Sodium 138 (136-145) mmol/L Potassium 3.9 (3.5-5.1) mmol/L Chloride 107 (98-107) mmol/L Carbon Dioxide 27 (21-32) mmol/L Anion Gap 4.0 (3-11) BUN 15 (7-18) mg/dl Creatinine 1.05 (0.6-1.4) mg/dl Est Cr Clr Drug Dosing 57.9 ml/min Est GFR ( Amer) 75.2 Est GFR (Non-Af Amer) 64.9 BUN/Creatinine Ratio 14.2 (10-20) Glucose 129 H (70-99) mg/dl POC Glucose 156 H 138 H (70-99) Calcium 8.7 (8.5-10.1) mg/dl 08/13/19 08/13/19 08/12/19 Range/Units 05:14 00:07 18:10 WBC 11.39 H (4.8-10.8) K/uL RBC 4.18 L (4.7-6.1) M/uL Hgb 13.5 L D (14.0-18.0) g/dL Hct 42.0 (42-52) % MCV 100.5 H (80-100) fL MCH 32.3 (25-34) pg MCHC 32.1 (32-36) g/dL RDW Std Deviation 51.0 H (36.4-46.3) fL RDW Coeff of Jennifer 14.1 (11.5-14.5) % Plt Count 135 (130-400) K/uL MPV 11.2 H (7.4-10.4) fL Immature Gran % (Auto) 0.2 % Neut % (Auto) 47.9 % Lymph % (Auto) 43.0 % Summit % (Auto) 5.2 % Eos % (Auto) 3.2 % Baso % (Auto) 0.5 % Immature Gran # (Auto) 0.02 (0.00-0.02) K/uL Neut # (Auto) 5.46 (1.4-6.5) K/uL Lymph # (Auto) 4.90 H (1.2-3.4) K/uL Summit # (Auto) 0.59 (0.11-0.59) K/uL Eos # (Auto) 0.36 (0-0.5) K/uL Baso # (Auto) 0.06 (0-0.2) K/uL Sodium (136-145) mmol/L Potassium (3.5-5.1) mmol/L Chloride (98-107) mmol/L Carbon Dioxide (21-32) mmol/L Anion Gap (3-11) BUN (7-18) mg/dl Creatinine (0.6-1.4) mg/dl Est Cr Clr Drug Dosing ml/min Est GFR ( Amer) Est GFR (Non-Af Amer) BUN/Creatinine Ratio (10-20) Glucose (70-99) mg/dl POC Glucose 161 H 123 H (70-99) Calcium (8.5-10.1) mg/dl PG Care Time/CCT Total # of Minutes Spent Total Time Spent with Patient: Total time spent is greater than 50% in coordination of care (as documented) at patient's floor/unit and/or counseling patient:
[2019-08-13] MEDS ORDERED: TRAMADOL HCL 50 MG TABLET PO STA (15:01)
[2019-08-13] MEDS: LATANOPROST 0.005% OP SOLN 2.5 ML BTL OP SCH (21:44)
[2019-08-13] MEDS: ASPIRIN 325 MG ECTAB PO SCH (21:44)
[2019-08-13] MEDS: ZOLPIDEM TARTRATE 5 MG TAB PO SCH (21:47)
[2019-08-14] MEDS: INSULIN ASPART 100 UNITS/ML 3 ML PEN SC SCH ×5 (00:21→20:36)
[2019-08-14] MEDS: LACTATED RINGER'S 1,000 ML IV SCH ×3 (03:31→20:21)
[2019-08-14] MEDS: metroNIDAZOLE 500 MG/100 ML BAG IV SCH ×2 (04:35→13:06)
[2019-08-14 06:05] LABS: Basophils # (auto) 0.05 K/uL (0-0.2); Basophils % (auto) 0.5 %; Eosinophils # (auto) 0.22 K/uL (0-0.5); Eosinophils % (auto) 2.3 %; Hematocrit (blood only) 40.5 % (42-52); Hemoglobin 13.7 g/dL (14.0-18.0); Immature Granulocytes # (auto) 0.03 K/uL (0.00-0.02); Immature Granulocytes % (auto) 0.3 %; Lymphocytes # (auto) 3.67 K/uL (1.2-3.4); Lymphocytes % (auto) 37.9 %; Mean Corpuscular Hemoglobin 33.6 pg (25-34); Mean Corpuscular Hgb Conc 33.8 g/dL (32-36); Mean Corpuscular Volume 99.3 fL (80-100); Mean Platelet Volume 11.3 fL (7.4-10.4); Monocytes % (auto) 7.2 %; Neutrophils # (auto) 5.01 K/uL (1.4-6.5); Neutrophils % (auto) 51.8 %; Platelet Count 124 K/uL (130-400); RDW Coefficient of Variation 13.8 % (11.5-14.5); RDW Standard Deviation 50.3 fL (36.4-46.3); Red Blood Count 4.08 M/uL (4.7-6.1); White Blood Count 9.68 K/uL (4.8-10.8)
[2019-08-14 06:32] LABS: BUN Creatinine Ratio 13.5 (10-20); Calcium 8.6 mg/dl (8.5-10.1); Creatinine Clr Calc Pharmacy 58.5 ml/min; Est GFR (African American) 76.1; Est GFR (Non-African American) 65.6; Magnesium 1.9 mg/dl (1.8-2.4); Phosphorus 2.9 mg/dl (2.5-4.9); Potassium 3.7 mmol/L (3.5-5.1)
[2019-08-14 07:53] LABS: Folate (Folic Acid) 13.71 ng/ml (>5.38)
[2019-08-14] MEDS: ACETAMINOPHEN 325 MG TAB PO PRN (08:18)
[2019-08-14] MEDS: PREGABALIN 150 MG CAP PO SCH ×2 (08:19→20:21)
[2019-08-14] MEDS: PANTOprazole 40 MG TAB PO SCH (08:20)
[2019-08-14] MEDS: guaiFENesin 600 MG TABCR PO SCH ×2 (08:20→20:21)
[2019-08-14] MEDS: ALLOPURINOL 300 MG TAB PO SCH (08:20)
[2019-08-14] MEDS: ENOXAPARIN INJ 30 MG/0.3 ML SYR SQ SCH (08:22)
[2019-08-14] MEDS: CIPROFLOXACIN 400 MG/200 ML BAG IV SCH (09:40)
[2019-08-14] MEDS ORDERED: KETOROLAC TROMETHAMINE 15 MG/ML VIAL IV ONE (10:47)
--- NOTE | 2019-08-14 11:36 | XRay Report ---
XR KUB/Abdomen 1 view CLINICAL HISTORY: SBO vs constipation pain COMPARISON STUDY: 10/21/2017 FINDINGS: Nonobstructive bowel pattern. No evidence for fecal stasis or fecal impaction. May be a min imal nonobstructive ileus. Postoperative changes involving the lumbosacral spine which min previously described. Battery pack an d electrode is present. IMPRESSION: Minimal nonobstructive ileus. The above report was generated using voice recognition software. It may contain grammatical, syntax or spelling errors. Electronically signed by: Trace Mares M.D. 08/14/2019 11:35 AM
--- NOTE | 2019-08-14 12:02 | Surgery Progress Note ---
Date of Service August 14, 2019 Assessment & Plan (1) SBO (small bowel obstruction): Partial SBO - vitals stable, afebrile, leukocytosis resolved - no bowel movement - no n/v, abdominal soreness no pain - abdomen soft, nondistended KUB refused by patient yesterday Plan: KUB today to evaluate for continued SBO. Has history of morphine pump due to chronic pain and takes Sennokot daily at home. Could be constipated. continue conservative measures. continue OOB to chair and ambulation with assistance continue medical management Dr. Driver has seen patient , agrees with above. Subjective no bowel movement, not passing gas. No relief with suppository yesterday soreness in abdomen, not really pain, steady with no relief. Feels a little bloated. no nausea or vomiting Physical Exam Constitutional: WD/WN, vitals as above + obese; no acute distress Gastrointestinal (Abdomen): Inspection/Auscultation: abdomen normal to inspection; abdomen not distended and + abnormal bowel sounds Percussion/Palpation: abdomen soft; abdomen nontender, no guarding and abdomen not rigid Skin: no rashes, warm and dry Psychiatric: A+Ox3, euthymic affect Results & Data Vital Signs (Past 12 Hours) Vital Signs Temp Pulse Resp BP Pulse Ox 08/14/19 09:15 58 L 12 08/14/19 07:30 36.5 C 50 L 10 L 120/64 93 Laboratory Results 08/14/19 08/14/19 08/14/19 Range/Units 05:55 05:34 05:34 WBC 9.68 (4.8-10.8) K/uL RBC 4.08 L (4.7-6.1) M/uL Hgb 13.7 L (14.0-18.0) g/dL Hct 40.5 L (42-52) % MCV 99.3 (80-100) fL MCH 33.6 (25-34) pg MCHC 33.8 (32-36) g/dL RDW Std Deviation 50.3 H (36.4-46.3) fL RDW Coeff of Jennifer 13.8 (11.5-14.5) % Plt Count 124 L (130-400) K/uL MPV 11.3 H (7.4-10.4) fL Immature Gran % (Auto) 0.3 % Neut % (Auto) 51.8 % Lymph % (Auto) 37.9 % Pepin % (Auto) 7.2 % Eos % (Auto) 2.3 % Baso % (Auto) 0.5 % Immature Gran # (Auto) 0.03 H (0.00-0.02) K/uL Neut # (Auto) 5.01 (1.4-6.5) K/uL Lymph # (Auto) 3.67 H (1.2-3.4) K/uL Pepin # (Auto) 0.70 H (0.11-0.59) K/uL Eos # (Auto) 0.22 (0-0.5) K/uL Baso # (Auto) 0.05 (0-0.2) K/uL Sodium 140 (136-145) mmol/L Potassium 3.7 (3.5-5.1) mmol/L Chloride 107 (98-107) mmol/L Carbon Dioxide 28 (21-32) mmol/L Anion Gap 5.0 (3-11) BUN 14 (7-18) mg/dl Creatinine 1.04 (0.6-1.4) mg/dl Est Cr Clr Drug Dosing 58.5 ml/min Est GFR ( Amer) 76.1 Est GFR (Non-Af Amer) 65.6 BUN/Creatinine Ratio 13.5 (10-20) Glucose 122 H (70-99) mg/dl POC Glucose 119 H (70-99) Calcium 8.6 (8.5-10.1) mg/dl Phosphorus 2.9 (2.5-4.9) mg/dl Magnesium 1.9 (1.8-2.4) mg/dl Vitamin B12 (211-911) pg/ml Folate (>5.38) ng/ml 08/14/19 08/13/19 08/13/19 Range/Units 05:34 23:59 23:28 WBC (4.8-10.8) K/uL RBC (4.7-6.1) M/uL Hgb (14.0-18.0) g/dL Hct (42-52) % MCV (80-100) fL MCH (25-34) pg MCHC (32-36) g/dL RDW Std Deviation (36.4-46.3) fL RDW Coeff of Jennifer (11.5-14.5) % Plt Count (130-400) K/uL MPV (7.4-10.4) fL Immature Gran % (Auto) % Neut % (Auto) % Lymph % (Auto) % Pepin % (Auto) % Eos % (Auto) % Baso % (Auto) % Immature Gran # (Auto) (0.00-0.02) K/uL Neut # (Auto) (1.4-6.5) K/uL Lymph # (Auto) (1.2-3.4) K/uL Pepin # (Auto) (0.11-0.59) K/uL Eos # (Auto) (0-0.5) K/uL Baso # (Auto) (0-0.2) K/uL Sodium (136-145) mmol/L Potassium (3.5-5.1) mmol/L Chloride (98-107) mmol/L Carbon Dioxide (21-32) mmol/L Anion Gap (3-11) BUN (7-18) mg/dl Creatinine (0.6-1.4) mg/dl Est Cr Clr Drug Dosing ml/min Est GFR ( Amer) Est GFR (Non-Af Amer) BUN/Creatinine Ratio (10-20) Glucose (70-99) mg/dl POC Glucose 146 H 150 H (70-99) Calcium (8.5-10.1) mg/dl Phosphorus (2.5-4.9) mg/dl Magnesium (1.8-2.4) mg/dl Vitamin B12 218 (211-911) pg/ml Folate 13.71 (>5.38) ng/ml 08/13/19 08/13/19 Range/Units 18:03 11:58 WBC (4.8-10.8) K/uL RBC (4.7-6.1) M/uL Hgb (14.0-18.0) g/dL Hct (42-52) % MCV (80-100) fL MCH (25-34) pg MCHC (32-36) g/dL RDW Std Deviation (36.4-46.3) fL RDW Coeff of Jennifer (11.5-14.5) % Plt Count (130-400) K/uL MPV (7.4-10.4) fL Immature Gran % (Auto) % Neut % (Auto) % Lymph % (Auto) % Pepin % (Auto) % Eos % (Auto) % Baso % (Auto) % Immature Gran # (Auto) (0.00-0.02) K/uL Neut # (Auto) (1.4-6.5) K/uL Lymph # (Auto) (1.2-3.4) K/uL Pepin # (Auto) (0.11-0.59) K/uL Eos # (Auto) (0-0.5) K/uL Baso # (Auto) (0-0.2) K/uL Sodium (136-145) mmol/L Potassium (3.5-5.1) mmol/L Chloride (98-107) mmol/L Carbon Dioxide (21-32) mmol/L Anion Gap (3-11) BUN (7-18) mg/dl Creatinine (0.6-1.4) mg/dl Est Cr Clr Drug Dosing ml/min Est GFR ( Amer) Est GFR (Non-Af Amer) BUN/Creatinine Ratio (10-20) Glucose (70-99) mg/dl POC Glucose 133 H 156 H (70-99) Calcium (8.5-10.1) mg/dl Phosphorus (2.5-4.9) mg/dl Magnesium (1.8-2.4) mg/dl Vitamin B12 (211-911) pg/ml Folate (>5.38) ng/ml
[2019-08-14] MEDS: POLYETHYLENE (MIRALAX) 17 GM PACK PO SCH (12:26)
[2019-08-14] MEDS ORDERED: POLYETHYLENE (MIRALAX) 17 GM PACK PO SCH (12:30)
--- NOTE | 2019-08-14 12:47 | Hospitalist Progress Note ---
Date of Service August 14, 2019 Assessment & Plan (1) SBO (small bowel obstruction): * Improved- KUB today shows a minimal nonobstructive ileus. * Patient initially admitted with CT Abd/pelvis consistent with SBO with transition point RLQ -- likely secondary to adhesions from previous append ectomy, spinal surgery (anterior approach per patient as well as pain pump placement). Previous SBO 7-8 years ago in [place] with spontaneous resolution. * General surgery on consult-- conservative management at this time, no NGT at this time -- appreciate input * Diet advanced to clear liquids -- will re-evaluate and advance as tolerated * Pain control- patient given x 1 dose of toradol today for pain rather than morphine, at patient request * Placed on IV Cipro/Flagyl at recommendation by surgery by overnight resident * Dulcolayx suppository without BM, however given findings on KUB, will initiate miralax and Senna and monitor (2) Hypertension: * BP actually improved despite holding sprinolactone and KCl in setting of SBO * Currently 120/64 * Continue to monitor (3) Leukocytosis: * Chronic, dating back to 2013 with associated elevated lymphocytes and presence of smudge cells * Previous recommendations for outpatient follow-up with television production assistant * Follows with Dr. Neil as outpatient for this -- patient gets blood work every three months and would not like further follow up with television production assistant at this time * WBC actually down and wnl today at 9.68 (4) Macrocytosis: * MCV 100.4 on 08/13 * B12 218 - low end of normal -- given peripheral neuropathy, may consider B12 supplementation if patient agreeable * Folate wnl * MCV 99.3 today (5) Diabetes mellitus: * Hold home glipizide -- patient previously on metformin but unable to tolerate * Most recent A1c 7.2 on 07/25 * Sliding scale insulin -- patients blood sugars acceptable -- continue to monitor (6) Coronary artery disease, occlusive: * S/P CABG 2001 * Continue home ASA * Not on BB secondary to bradycardia * Is statin intolerant-is on Zetia and gemfibrozil at home which are both on hold here while minimal p.o. intake (7) Lumbar spinal stenosis: * S/p multiple spinal surgeries, laminectomies -- 1984 at [facility], [address] 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 Non tender (13) Presence of intrathecal baclofen pump: * As above- bupivacaine (14) Gastroesophageal reflux disease: * Continue home protonix (15) Gout, joint: * Continue allopurinol (16) Hypercholesterolemia: * hold ezetimibe, gemfibrozil (17) DVT prophylaxis: * Lovenox SQ * Encouraged ambulation Dispo: Senna/Miralax today, continue to monitor -- possible discharge tomorrow or Saturday if patient improves Supervising Physician Co-Signing Physician Notes PA Supervision Note: I did not personally see or examine the patient today, but I verified all soler points of ISRAEL Espinosa's assessment and plan with the following exceptions/additions: None Subjective Patient continues without bowel movement or flatus. He states he feels like he has to go though. He states his abdominal pain is a 5/10, up from a 4/10 yesterday, and had been previously improved with ultram yesterday and is requesting toradol today. Patient and with continues concerns about not knowing which providers were kim lizarraga vs [facility] and billing due to previous experiences, but after repeated lengthy discussion today, patient and demonstrate understanding of how general surgery on-call services are designed. Patient states his abdominal pain is a dull ache, moreso in his lower abdomen currently, but he denies any further episodes of dysuria since the initial episode in the ER which required straight cath. Discussion was had regarding need for abdominal films to determine if possibly the patient continues to have a SBO or if there is a possibility the SBO has resolved and the patient may be dealing with constipation, as he is on chronic pain management with his pain pump, and that the treatment for either is different moving forward. Patient and demonstrated understanding and were agreeable to current plan. Review of Systems Constitutional: no fever and no chills Respiratory: no cough and no dyspnea Cardiovascular: no chest pain, no palpitations and no edema Gastrointestinal: + abdominal pain and + constipation; no nausea, no vomiting and no diarrhea/loose stools Genitourinary: no dysuria and no hematuria Musculoskeletal: + back pain LE pain bilaterally from neuropathy Neurologic: no headache(s) Physical Exam Constitutional: WD/WN, vitals as above + obese; no acute distress Respiratory: normal respiratory effort, lungs clear to auscultation no respiratory distress Cardiovascular: Rate/Rhythm: regular rate and regular rhythm Heart Sounds: normal S1, normal S2 and + gallop (S4) Gastrointestinal (Abdomen): Inspection/Auscultation: + hypoactive bowel sounds Percussion/Palpation: + abdomen tender (minimally tender) and abdomen soft; no guarding and abdomen not rigid pain pump present llq umbilical hernia present Skin: no rashes, warm and dry Psychiatric: A+Ox3, euthymic affect Lymphatic: no cervical or axillary lymphadenopathy Results & Data Vital Signs (Past 12 Hours) Vital Signs Temp Pulse Resp BP Pulse Ox 08/14/19 09:15 58 L 12 08/14/19 07:30 36.5 C 50 L 10 L 120/64 93 Laboratory Results 08/14/19 08/14/19 08/14/19 Range/Units 12:03 05:55 05:34 WBC (4.8-10.8) K/uL RBC (4.7-6.1) M/uL Hgb (14.0-18.0) g/dL Hct (42-52) % MCV (80-100) fL MCH (25-34) pg MCHC (32-36) g/dL RDW Std Deviation (36.4-46.3) fL RDW Coeff of Jennifer (11.5-14.5) % Plt Count (130-400) K/uL MPV (7.4-10.4) fL Immature Gran % (Auto) % Neut % (Auto) % Lymph % (Auto) % Rush % (Auto) % Eos % (Auto) % Baso % (Auto) % Immature Gran # (Auto) (0.00-0.02) K/uL Neut # (Auto) (1.4-6.5) K/uL Lymph # (Auto) (1.2-3.4) K/uL Rush # (Auto) (0.11-0.59) K/uL Eos # (Auto) (0-0.5) K/uL Baso # (Auto) (0-0.2) K/uL Sodium 140 (136-145) mmol/L Potassium 3.7 (3.5-5.1) mmol/L Chloride 107 (98-107) mmol/L Carbon Dioxide 28 (21-32) mmol/L Anion Gap 5.0 (3-11) BUN 14 (7-18) mg/dl Creatinine 1.04 (0.6-1.4) mg/dl Est Cr Clr Drug Dosing 58.5 ml/min Est GFR ( Amer) 76.1 Est GFR (Non-Af Amer) 65.6 BUN/Creatinine Ratio 13.5 (10-20) Glucose 122 H (70-99) mg/dl POC Glucose 142 H 119 H (70-99) Calcium 8.6 (8.5-10.1) mg/dl Phosphorus 2.9 (2.5-4.9) mg/dl Magnesium 1.9 (1.8-2.4) mg/dl Vitamin B12 (211-911) pg/ml Folate (>5.38) ng/ml 08/14/19 08/14/19 08/13/19 Range/Units 05:34 05:34 23:59 WBC 9.68 (4.8-10.8) K/uL RBC 4.08 L (4.7-6.1) M/uL Hgb 13.7 L (14.0-18.0) g/dL Hct 40.5 L (42-52) % MCV 99.3 (80-100) fL MCH 33.6 (25-34) pg MCHC 33.8 (32-36) g/dL RDW Std Deviation 50.3 H (36.4-46.3) fL RDW Coeff of Jennifer 13.8 (11.5-14.5) % Plt Count 124 L (130-400) K/uL MPV 11.3 H (7.4-10.4) fL Immature Gran % (Auto) 0.3 % Neut % (Auto) 51.8 % Lymph % (Auto) 37.9 % Rush % (Auto) 7.2 % Eos % (Auto) 2.3 % Baso % (Auto) 0.5 % Immature Gran # (Auto) 0.03 H (0.00-0.02) K/uL Neut # (Auto) 5.01 (1.4-6.5) K/uL Lymph # (Auto) 3.67 H (1.2-3.4) K/uL Rush # (Auto) 0.70 H (0.11-0.59) K/uL Eos # (Auto) 0.22 (0-0.5) K/uL Baso # (Auto) 0.05 (0-0.2) K/uL Sodium (136-145) mmol/L Potassium (3.5-5.1) mmol/L Chloride (98-107) mmol/L Carbon Dioxide (21-32) mmol/L Anion Gap (3-11) BUN (7-18) mg/dl Creatinine (0.6-1.4) mg/dl Est Cr Clr Drug Dosing ml/min Est GFR ( Amer) Est GFR (Non-Af Amer) BUN/Creatinine Ratio (10-20) Glucose (70-99) mg/dl POC Glucose 146 H (70-99) Calcium (8.5-10.1) mg/dl Phosphorus (2.5-4.9) mg/dl Magnesium (1.8-2.4) mg/dl Vitamin B12 218 (211-911) pg/ml Folate 13.71 (>5.38) ng/ml 08/13/19 08/13/19 08/13/19 Range/Units 23:28 18:03 11:58 WBC (4.8-10.8) K/uL RBC (4.7-6.1) M/uL Hgb (14.0-18.0) g/dL Hct (42-52) % MCV (80-100) fL MCH (25-34) pg MCHC (32-36) g/dL RDW Std Deviation (36.4-46.3) fL RDW Coeff of Jennifer (11.5-14.5) % Plt Count (130-400) K/uL MPV (7.4-10.4) fL Immature Gran % (Auto) % Neut % (Auto) % Lymph % (Auto) % Rush % (Auto) % Eos % (Auto) % Baso % (Auto) % Immature Gran # (Auto) (0.00-0.02) K/uL Neut # (Auto) (1.4-6.5) K/uL Lymph # (Auto) (1.2-3.4) K/uL Rush # (Auto) (0.11-0.59) K/uL Eos # (Auto) (0-0.5) K/uL Baso # (Auto) (0-0.2) K/uL Sodium (136-145) mmol/L Potassium (3.5-5.1) mmol/L Chloride (98-107) mmol/L Carbon Dioxide (21-32) mmol/L Anion Gap (3-11) BUN (7-18) mg/dl Creatinine (0.6-1.4) mg/dl Est Cr Clr Drug Dosing ml/min Est GFR ( Amer) Est GFR (Non-Af Amer) BUN/Creatinine Ratio (10-20) Glucose (70-99) mg/dl POC Glucose 150 H 133 H 156 H (70-99) Calcium (8.5-10.1) mg/dl Phosphorus (2.5-4.9) mg/dl Magnesium (1.8-2.4) mg/dl Vitamin B12 (211-911) pg/ml Folate (>5.38) ng/ml Diagnostic Findings XR KUB/Abdomen 1 view CLINICAL HISTORY: SBO vs constipation pain COMPARISON STUDY: 10/21/2017 FINDINGS: Nonobstructive bowel pattern. No evidence for fecal stasis or fecal impaction. May be a minimal nonobstructive ileus. Postoperative changes involving the lumbosacral spine which min previously described. Battery pack and electrode is present. IMPRESSION: Minimal nonobstructive ileus. PG Care Time/CCT Total # of Minutes Spent Total Time Spent with Patient: Total time spent is greater than 50% in coordination of care (as documented) at patient's floor/unit and/or counseling patient: Prolonged Care Time Prolonged Care Time: Yes Total Prolonged Care Time: 70 Time spent coordinating care with case management, concerns regarding billing, discussion with general surgery as well as outside general surgery services in addition to lengthy discussion with patient and at bedside
[2019-08-14] MEDS: SENNA 8.6 MG TAB PO SCH (13:05)
--- NOTE | 2019-08-14 13:15 | Cardiology Progress Note ---
Date of Service August 14, 2019 Assessment & Plan (1) CAD, multiple vessel: The patient had a 3 vessel bypass performed in 2001. His coronary disease has been quiescent his current medical regimen. He is acceptable risk for surgery if required. (2) S/P CABG x 3: As above. (3) Hypertension: Adequate control on current medical regimen. (4) Hypercholesterolemia: Continue Zetia and Lopid. (5) SBO (small bowel obstruction): Subjective The patient is resting comfortably in the bedside chair without complaints of chest pain or dyspnea. His and son are at the bedside. Physical Exam Physical Exam: In general is well-developed well-nourished white male no acute distress. HEENT exam is negative. Neck is supple with full carotid upstrokes. No carotid bruits. Jugular venous pressure is flat at 90 degrees. No thyromegaly. Cardiovascular exam reveals a regular rhythm with distant heart sounds. No obvious murmurs. No S3 or S4. Lungs are clear without rales, rhonchi or wheezes. Abdomen is obese. Bowel sounds are not detected. Extremities reveal intact radial artery pulses bilaterally. Trace pretibial edema is noted. Results & Data Vital Signs (Past 12 Hours) Vital Signs Temp Pulse Resp BP Pulse Ox 08/14/19 09:15 58 L 12 08/14/19 07:30 36.5 C 50 L 10 L 120/64 93 PG Care Time/CCT Total # of Minutes Spent Total Time Spent with Patient: Total time spent is greater than 50% in coordinat ion of care (as documented) at patient's floor/unit and/or counseling patient:
[2019-08-14] MEDS ORDERED: Nursing to Pharmacy Communication ONE (14:56)
[2019-08-14] MEDS ORDERED: NYSTATIN SUSP 500,000 U/5 ML UDC PO ONE (15:30)
[2019-08-14] MEDS: LATANOPROST 0.005% OP SOLN 2.5 ML BTL OP SCH (20:20)
[2019-08-14] MEDS: ZOLPIDEM TARTRATE 5 MG TAB PO SCH (20:21)
[2019-08-14] MEDS: ASPIRIN 325 MG ECTAB PO SCH (20:21)
[2019-08-14] MEDS: ACETAMINOPHEN 500 MG TAB PO PRN (20:39)
[2019-08-15] MEDS: LACTATED RINGER'S 1,000 ML IV SCH ×3 (04:20→21:16)
[2019-08-15 06:01] LABS: Basophils # (auto) 0.04 K/uL (0-0.2); Basophils % (auto) 0.5 %; Eosinophils # (auto) 0.35 K/uL (0-0.5); Hematocrit (blood only) 39.3 % (42-52); Hemoglobin 13.4 g/dL (14.0-18.0); Immature Granulocytes # (auto) 0.03 K/uL (0.00-0.02); Immature Granulocytes % (auto) 0.3 %; Lymphocytes # (auto) 3.82 K/uL (1.2-3.4); Lymphocytes % (auto) 43.8 %; Mean Corpuscular Hemoglobin 33.8 pg (25-34); Mean Corpuscular Hgb Conc 34.1 g/dL (32-36); Mean Corpuscular Volume 99.2 fL (80-100); Mean Platelet Volume 11.4 fL (7.4-10.4); Monocytes # (auto) 0.64 K/uL (0.11-0.59); Monocytes % (auto) 7.3 %; Neutrophils # (auto) 3.84 K/uL (1.4-6.5); Neutrophils % (auto) 44.1 %; Platelet Count 122 K/uL (130-400); RDW Coefficient of Variation 13.8 % (11.5-14.5); RDW Standard Deviation 49.5 fL (36.4-46.3); Red Blood Count 3.96 M/uL (4.7-6.1); White Blood Count 8.72 K/uL (4.8-10.8)
[2019-08-15 06:35] LABS: Albumin Level 3.2 gm/dl (3.4-5.0); BUN Creatinine Ratio 11.3 (10-20); Calcium 8.5 mg/dl (8.5-10.1); Creatinine Clr Calc Pharmacy 52.4 ml/min; Est GFR (African American) 66.7; Est GFR (Non-African American) 57.5; Magnesium 1.8 mg/dl (1.8-2.4); Potassium 3.7 mmol/L (3.5-5.1)
[2019-08-15 06:38] LABS: Albumin Globulin Ratio 1.2 (0.9-2); Bilirubin,Total 0.7 mg/dl (0.2-1); Globulin 2.7 gm/dl (2.5-4.0); Phosphorus 3.1 mg/dl (2.5-4.9); Total Protein 5.9 gm/dl (6.4-8.2)
[2019-08-15] MEDS: ALLOPURINOL 300 MG TAB PO SCH (08:41)
[2019-08-15] MEDS: PANTOprazole 40 MG TAB PO SCH (08:41)
[2019-08-15] MEDS: PREGABALIN 150 MG CAP PO SCH ×2 (08:41→21:15)
[2019-08-15] MEDS: SENNA 8.6 MG TAB PO SCH (08:41)
--- NOTE | 2019-08-15 08:41 | Surgery Progress Note ---
Date of Service August 15, 2019 Assessment & Plan (1) SBO (small bowel obstruction): resolving partial SBO passing flatus decrease IVF full liquids advance as tolerated and jose DC once has BM ambulate Subjective Passing flatus No abdominal pain Review of Systems Constitutional: no fever and no chills Respiratory: no dyspnea Cardiovascular: no chest pain Gastrointestinal: no abdominal pain, no nausea and no vomiting Physical Exam Constitutional: WD/WN, vitals as above Respiratory: normal respiratory effort, lungs clear to auscultation Cardiovascular: RRR, no murmur, no edema Gastrointestinal (Abdomen): Inspection/Auscultation: abdomen normal to inspection and normal bowel sounds; abdomen not distended Percussion/Palpation: abdomen nontender Musculoskeletal: Head/Neck/Chest: normocephalic and head atraumatic Skin: no rashes, warm and dry Results & Data Vital Signs (Past 12 Hours) Vital Signs Temp Pulse Resp BP Pulse Ox 08/15/19 07:10 36.5 C 99 H 14 177/83 H 95 08/14/19 22:57 36.7 C 58 L 16 144/64 H 94
[2019-08-15] MEDS: POLYETHYLENE (MIRALAX) 17 GM PACK PO SCH (08:42)
[2019-08-15] MEDS: ENOXAPARIN INJ 30 MG/0.3 ML SYR SQ SCH (08:43)
[2019-08-15] MEDS: guaiFENesin 600 MG TABCR PO SCH ×2 (09:23→21:15)
[2019-08-15] MEDS: SPIRONOLACTONE 25 MG TAB PO SCH (09:23)
[2019-08-15] MEDS: INSULIN ASPART 100 UNITS/ML 3 ML PEN SC SCH ×4 (09:24→20:50)
[2019-08-15] MEDS ORDERED: MAGNESIUM CITRATE 296 ML/BTL PO STA (11:20)
--- NOTE | 2019-08-15 13:55 | Hospitalist Progress Note ---
Date of Service August 15, 2019 Subjective Patient states his abdominal pain is much improved from yesterday, currently a 0/10. Patient has been very receptive of tylenol for pain as alternative to narcotics. Patient states he does have an appetite and tolerated a breakfast of clear liquids without any increase in abdominal pain. He states he has been passing a lot of gas, but no bowel movement yet. He states he had tried miralax in the past without much help, and states he had tried citrucel at home when miralax hadn't worked. He is interested in alternative agents at this time. He states he also had better sleep last night with the hydroxyzine and states that he had been on ambien in the past and he states this has not been particularly helpful for him recently. He would like a prescription for this when he is discharged. Results & Data Vital Signs (Past 12 Hours) Vital Signs Temp Pulse Resp BP Pulse Ox 08/15/19 07:10 36.5 C 99 H 14 177/83 H 95 PG Care Time/CCT Total # of Minutes Spent Total Time Spent with Patient: Total time spent is greater than 50% in coordination of care (as documented) at patient's floor/unit and/or counseling patient:
--- NOTE | 2019-08-15 15:24 | Discharge Summary ---
Date of Service August 16, 2019 Admission HPI Per Admitting Provider 84-year-old male with history of CAD status post three-vessel bypass in 2001, hypertension, hyperlipidemia, DM 2, obstructive sleep apnea, gout, lumbar spinal stenosis, neuropathy presents with abdominal pain and nausea/vomiting which started yesterday. Reports having a normal bowel movement in the morning after which he gradually developed worsening abdominal soreness. He had breakfast but was unable to keep anything down for the rest of the day and was dry heaving as well. He is not passing gas right now and cannot remember the last time he passed gas. Abdominal pain is currently 5 out of 10 and described as soreness. Bowel movement this morning was nonbloody, soft and not dark. He denies any fever, chills, headache, lightheadedness, chest pain, shortness of breath, dysuria, hematuria. Patient is incontinent of urine at night and wears a diaper. History of appendectomy and umbilical hernia repair ED course: Found to have SBO Admission Exam Per Admitting Provider Physical Exam: General: In NAD, pleasant Neuro: A&O x 4 Pulm: CTAB equal breath sounds bilaterally CV: RRR, no m/r/g Abdomen:+BS, pressure reported on palpation, no TTP in all quadrants, somewhat distended, midline abdominal incision scar, subdermal stimulator over LLQ LE: no LE edema, no calf TTP Principal Diagnosis Small Bowel Obstruction Discharge Exam Constitutional WD/WN, vitals as above + obese; no acute distress Neck trachea midline, no thyromegaly Respiratory normal respiratory effort, lungs clear to auscultation no respiratory distress Cardiovascular Rate/Rhythm: regular rate and regular rhythm Heart Sounds: normal S1 and normal S2 Gastrointestinal (Abdomen) Inspection/Auscultation: normal bowel sounds Percussion/Palpation: abdomen soft; abdomen nontender, no guarding and no hepatosplenomegaly pain pump present Skin no rashes, warm and dry Psychiatric A+Ox3, euthymic affect Lymphatic no cervical or axillary lymphadenopathy Discharge Data Allergies Allergy/AdvReac Type Severity Reaction Status Date / Time hydrochlorothiazide Allergy Severe Hives Verified 08/11/19 23:54 Iodinated Contrast Media Allergy Severe Convulsions Verified 08/11/19 23:54 adhesive Allergy Intermediate RASH;PULLS Verified 08/11/19 23:54 SKIN OFF levofloxacin Allergy Mild HIVES, Verified 08/11/19 23:54 PRURITIS NSAIDS (Non-Steroidal Allergy Mild Elevated BP Verified 08/11/19 23:54 Anti-Inflamma amiodarone Allergy Unknown RASH Verified 08/11/19 23:54 cephalexin Allergy Unknown AFTER 14 Verified 08/11/19 23:54 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 Jgirurf-Hxf-Xef Reductase Allergy Unknown Unknown Verified 08/11/19 23:54 Inhibitor terazosin [From Hytrin] Allergy Unknown Unknown Verified 08/11/19 23:54 Cephalosporins AdvReac Intermediate nausea Verified 08/11/19 23:54 after repeated dose nifedipine AdvReac Intermediate Sick to Verified 08/11/19 23:54 stomach atorvastatin AdvReac Unknown MUSCLE Verified 08/11/19 23:54 ACHES doxycycline AdvReac Unknown gi upset Verified 08/11/19 23:54 Consultations 08/12/19 00:40 ED Decision to Admit Stat 08/12/19 09:37 Consult General Surgery Routine 08/13/19 09:59 Consult Cardiology Routine Ordered Studies 08/11/19 22:57 CT abd pelvis wo con Urgent 08/14/19 [facility] Course (1) SBO (small bowel obstruction): * Resolved * Patient initially admitted with CT Abd/pelvis consistent with SBO with transition point RLQ -- likely secondary to adhesions from previous appendectomy, spinal surgery (anterior approach per patient as well as pain pump placement). Previous SBO 7-8 years ago in [place] with spontaneous resolution. * General surgery on consult-- conservative management. Dulcolayx suppository given. Was placed on Cipro/Flagyl per surgical team initially because of leukocytosis presumably? No need for continued abx after discharge * Follow up KUB showed minimal nonobstructive ileus-- patient initiated on clear liquids, miralax, senna. Additional mag citrate following day with large and multiple BMs. Without abd pain. Was tolerating a regular diet by the time of discharge (2) Hypertension: * Stable * 149/76 * Continue home spironolactone -- initially held in setting of SBO (3) Leukocytosis: * Chronic, dating back to 2013 with associated elevated lymphocytes and presence of smudge cells * Previous recommendations for outpatient follow-up with jacquard plate maker * Follows with Dr. Neil as outpatient for this -- patient gets blood work every three months and would not like further follow up with jacquard plate maker at this time * WBC actually wnl prior to discharge, at 8.72 (4) Macrocytosis: * MCV 100.4 on 08/13 * B12 218 - low end of normal -- sent patient with rx for B12 supplementation at d/c * Folate wnl (5) Diabetes mellitus: * Held home glipizide -- patient previously on metformin but unable to tolerate. * Most recent A1c 7.2 on 07/25 * Sliding scale insulin while inpatient * BSGs stable (6) Coronary artery disease, occlusive: * S/P CABG 2001. * Not on BB secondary to bradycardia * Continued home ASA * Is statin intolerant-is on Zetia and gemfibrozil at home which were both on hold here while minimal p.o. intake--> restarted on discharge (7) Lumbar spinal stenosis: * S/p multiple spinal surgeries, laminectomies -- 1984 at [facility], [address] [place] [facility] * Patient has intrathecal pain pump (8) Obstructive sleep apnea: * Patient with CPAP and nasal pillows at home, although per conversation he does not regularly utilize * Ordered CPAP * Encouraged to utilize (9) History of appendectomy: (10) History of back surgery: * As above (11) S/P triple vessel bypass: * As above- 2001 (12) Umbilical hernia: * Present- patient stated this has enlarged over the past several years-- states it was a fat containing hernia. Non tender (13) Presence of intrathecal baclofen pump: * As above- bupivacaine (14) Gastroesophageal reflux disease: * Continue home protonix (15) Gout, joint: * Continue allopurinol (16) Hypercholesterolemia: * hold ezetimibe, gemfibrozil while inpatient (17) DVT prophylaxis: * Lovenox SQ while inpatient * Encouraged ambulation Total Time Total Time Spent Total Time Spent (In Minutes): 45 Discharge Plan Discharge Items Patient Disposition: Home - Self-Care Reason For Visit: SBO Discharge Diagnosis: Small Bowel Obstruction Condition on Discharge: Good Goals: You have been hospitalized for an acute medical problem. During your stay at [facility], we have made an effort to correct the problem that brought you to the hospital while keeping you as comfortable as possible. Medications were used to bring your condition under control and your discharge instructions will include directions for any medications you should take after leaving the hospital. Please make sure you see your Primary Care Provider as part of your follow up plan. Activity: Resume your previous activity Lifting: None Bathing: No limitations Exercise Comment: Please ambulate as much as possible to help your bowels move Non-emergency contact: Primary Care Provider Call non-emergency contact if: you have any medication questions and your symptoms worsen Follow-up/Referrals: Miles Neil MD [Primary Care Provider] - Diet: Carb Count or DM1, Heart Healthy and Low Fiber Addtl Attending Provider Instructions: You have been sent prescriptions for the following: -- Vistaril (hydroxyzine) 25mg that you may take for to help sleep/insomnia. These do not need to be taken on a daily basis, and can be used on an as needed basis. -- B12 (2,000mcg daily) -- per our discussion, your B12 level was on the low end of normal, but as we age this low normal may benefit from supplementation. This may also improve some of the neuropathy in your feet. It is recommended that you consume a low fiber diet for the next two weeks, and then slowly increase fiber intake as tolerated. You may use over the counter miralax daily or citrucel to ensure more regular bowel movements. Please follow up with your primary care provider within the next 5-7 days. Please return to the emergency room with any increasing abdominal pain, fever or chills. Pending Studies at Discharge: No Stand-Alone Forms: My [facility] Medications and DC Order Prescriptions: New hydroxyzine HCl 25 mg Tablet 25 mg PO Q8H PRN (Reason: insomnia) Qty: 30 RF: 0 guaifenesin [Mucinex] 600 mg Tablet Extended Release 12hr 1,200 mg PO Q12 30 Days Qty: 120 RF: 0 cyanocobalamin (vitamin B-12) 1,000 mcg capsule 2,000 mcg PO DAILY 30 Days Qty: 60 RF: 0 Continued aspirin 325 mg tablet 325 mg PO HS RF: 0 acetaminophen 650 mg tablet extended release 1,300 mg PO Q8H PRN (Reason: Fever Or Pain) RF: 0 allopurinol [Zyloprim] 300 mg tablet 300 mg PO DAILY RF: 0 lactobacillus combination no.8 [Adult Probiotic] 3 billion cell capsule 3,000 mmu cells PO DAILY RF: 0 potassium chloride 10 mEq tablet extended release 10 meq PO DAILY RF: 0 latanoprost 0.005 % drops 1 drops OP QPM RF: 0 bupivacaine 0.25 % (2.5 mg/mL) solution See Rx Instructions .ROUTE .COMPLEX Qty: 50 RF: 0 zolpidem [Ambien] 5 mg tablet 5 mg PO HS Qty: 90 RF: 0 pantoprazole [Protonix] 40 mg tablet,delayed release (DR/EC) 40 mg PO DAILY Qty: 180 RF: 3 ezetimibe [Zetia] 10 mg tablet 10 mg PO DAILY Qty: 90 RF: 1 pregabalin [Lyrica] 150 mg capsule 150 mg PO BID Qty: 180 RF: 1 glipizide 10 mg tablet extended release 24hr 10 mg PO BID Qty: 180 RF: 3 spironolactone [Aldactone] 50 mg tablet 50 mg PO DAILY Qty: 90 RF: 3 gemfibrozil 600 mg tablet 300 mg PO BID RF: 0 Discharge Orders: Discharge Order (Routine); Ordered 08/16/19 Ordered By: Tess Chavis/Other Patient Handouts: Eat Healthy Admission Data Admit Date/Time: 08/12/19 01:23 Attending Provider: Tess Medellin Admit Provider: June Vu Primary Care Provider: Miles Neil Other Providers: June Vu ; Esvin Driver ; Patrick Win Other Interventions: Discharge Summary Assessment (RN) Last Done: 08/16/19 11:34 DC Date/Time DO NOT enter until pt leaves facility: 08/16/19 12:19 Supervising Physician Co-Signing Physician Notes PA Supervision Note: I personally saw and examined the patient. I verified all soler points and agree with ISRAEL Espinosa with the following exceptions and/or additions: DOing very well by time of discharge. Nic reg diet, no N/V, no abd pain. Has had numerous loose BMs after bowel function returned in setting of receiving laxatives. Denies CP, SOB, not lightheaded. Is ambulating on own. Stable for dc to home VSS RRR no mgr CTAB no wcr Abd +BS soft NT ND, left abd with pain pump palpable Ext trace pitting edema
--- NOTE | 2019-08-15 18:18 | Hospitalist Progress Note ---
Date of Service August 15, 2019 Assessment & Plan (1) SBO (small bowel obstruction): * Resolved * Patient initially admitted with CT Abd/pelvis consistent with SBO with transition point RLQ -- likely secondary to adhesions from previous appendectomy, spinal surgery (anterior approach per patient as well as pain pump placement). Previous SBO 7-8 years ago in [place] with spontaneous resolution. * General surgery on consult-- conservative management. Dulcolayx suppository given. Was placed on Cipro/Flagyl per surgical team. No s/sx infection-- discontinue * Follow up KUB showed minimal nonobstructive ileus-- patient initiated on clear liquids, miralax, senna. * Additional mag citrate this afternoon with large BM. --- however, patient continues to have diarrhea --- states unable to be discharged unless resolved, requested immodium (not given) * Will remain hospitalized overnight (2) Hypertension: * Stable * 149/76 * Continue home spironolactone -- initially held in setting of SBO (3) Leukocytosis: * Chronic, dating back to 2013 with associated elevated lymphocytes and presence of smudge cells * Previous recommendations for outpatient follow-up with goldsmith apprentice * Follows with Dr. Neil as outpatient for this -- patient gets blood work every three months and would not like further follow up with goldsmith apprentice at this time * WBC actually wnl 8.72 (4) Macrocytosis: * MCV 100.4 on 08/13 * B12 218 - low end of normal -- send patient with rx for B12 supplementation at d/c * Folate wnl (5) Diabetes mellitus: * Held home glipizide -- patient previously on metformin but unable to tolerate. * Most recent A1c 7.2 on 07/25 * Sliding scale insulin while inpatient * BSGs stable (6) Coronary artery disease, occlusive: * S/P CABG 2001. * Not on BB secondary to bradycardia * Continued home ASA * Is statin intolerant-is on Zetia and gemfibrozil at home which are both on hold here while minimal p.o. intake-ok to restart now (7) Lumbar spinal stenosis: * S/p multiple spinal surgeries, laminectomies -- 1984 at [facility], [address] [place] at [facility] [place], 2009 in [place], [place] * Patient has intrathecal pain pump (8) Obstructive sleep apnea: * Patient with CPAP and nasal pillows at home, although per conversation he does not regularly utilize * Ordered CPAP * Encouraged to utilize (9) History of appendectomy: (10) History of back surgery: * As above (11) S/P triple vessel bypass: * As above- 2001 (12) Umbilical hernia: * Present- patient stated this has enlarged over the past several years-- states it was a fat containing hernia. Non tender (13) Presence of intrathecal baclofen pump: * As above- bupivacaine (14) Gastroesophageal reflux disease: * Continue home protonix (15) Gout, joint: * Continue allopurinol (16) Hypercholesterolemia: * hold ezetimibe, gemfibrozil but now can restart (17) DVT prophylaxis: * Lovenox SQ while inpatient * Encouraged ambulation Dispo: due to patient not feeling able to be discharged with continued diarrhea, will remain hospitalized overnight -- re-evaluate and discharge in AM Supervising Physician Co-Signing Physician Notes PA Supervision Note: I did not personally see or examine the patient today, but I verified all soler points of ISRAEL Espinosa's assessment and plan with the following exceptions/additions: None Subjective Patient states his abdominal pain is much improved from yesterday, currently a 0/10. Patient has been very receptive of tylenol for pain as alternative to narcotics. Patient states he does have an appetite and tolerated a breakfast of clear liquids without any increase in abdominal pain. He states he has been passing a lot of gas, but no bowel movement yet. He states he had tried miralax in the past without much help, and states he had tried citrucel at home when miralax hadn't worked. He is interested in alternative agents at this time. He states he also had better sleep last night with the hydroxyzine and states that he had been on ambien in the past and he states this has not been particularly helpful for him recently. He would like a prescription for this when he is discharged. Review of Systems Constitutional: no fever and no chills no cough and no dyspnea no chest pain, no palpitations and no edema no abdominal pain and + constipation; no nausea, no vomiting and no diarrhea/loose stools no dysuria and no hematuria + back pain LE pain bilaterally from neuropathy no headache(s) Physical Exam Constitutional: WD/WN, vitals as above + obese; no acute distress Neck: trachea midline, no thyromegaly Respiratory: normal respiratory effort, lungs clear to auscultation Cardiovascular: Rate/Rhythm: regular rate and regular rhythm Heart Sounds: normal S1 and normal S2 Gastrointestinal (Abdomen): Inspection/Auscultation: normal bowel sounds Percussion/Palpation: abdomen soft; abdomen nontender, no guarding, abdomen not rigid and no hepatosplenomegaly Skin: no rashes, warm and dry Psychiatric: A+Ox3, euthymic affect Lymphatic: no cervical or axillary lymphadenopathy Results & Data Vital Signs (Past 12 Hours) Vital Signs Temp Pulse Resp BP Pulse Ox 08/15/19 15:03 36.5 C 66 16 149/76 H 94 08/15/19 14:17 68 115/65 08/15/19 07:10 36.5 C 99 H 14 177/83 H 95 Laboratory Results 08/15/19 08/15/19 08/15/19 Range/Units 11:47 08:18 05:22 WBC (4.8-10.8) K/uL RBC (4.7-6.1) M/uL Hgb (14.0-18.0) g/dL Hct (42-52) % MCV (80-100) fL MCH (25-34) pg MCHC (32-36) g/dL RDW Std Deviation (36.4-46.3) fL RDW Coeff of Jennifer (11.5-14.5) % Plt Count (130-400) K/uL MPV (7.4-10.4) fL Immature Gran % (Auto) % Neut % (Auto) % Lymph % (Auto) % [place] % (Auto) % Eos % (Auto) % Baso % (Auto) % Immature Gran # (Auto) (0.00-0.02) K/uL Neut # (Auto) (1.4-6.5) K/uL Lymph # (Auto) (1.2-3.4) K/uL [place] # (Auto) (0.11-0.59) K/uL Eos # (Auto) (0-0.5) K/uL Baso # (Auto) (0-0.2) K/uL Sodium 141 (136-145) mmol/L Potassium 3.7 (3.5-5.1) mmol/L Chloride 107 (98-107) mmol/L Carbon Dioxide 31 (21-32) mmol/L Anion Gap 3.0 (3-11) BUN 13 (7-18) mg/dl Creatinine 1.16 (0.6-1.4) mg/dl Est Cr Clr Drug Dosing 52.4 ml/min Est GFR ( Amer) 66.7 Est GFR (Non-Af Amer) 57.5 BUN/Creatinine Ratio 11.3 (10-20) Glucose 109 H (70-99) mg/dl POC Glucose 91 113 H (70-99) Calcium 8.5 (8.5-10.1) mg/dl Phosphorus 3.1 (2.5-4.9) mg/dl Magnesium 1.8 (1.8-2.4) mg/dl Total Bilirubin 0.7 (0.2-1) mg/dl AST 48 H (15-37) U/L ALT 55 (12-78) U/L Alkaline Phosphatase 51 (45-117) U/L Total Protein 5.9 L (6.4-8.2) gm/dl Albumin 3.2 L (3.4-5.0) gm/dl Globulin 2.7 (2.5-4.0) gm/dl Albumin/Globulin Ratio 1.2 (0.9-2) 08/15/19 08/14/19 08/14/19 Range/Units 05:22 20:22 17:24 WBC 8.72 (4.8-10.8) K/uL RBC 3.96 L (4.7-6.1) M/uL Hgb 13.4 L (14.0-18.0) g/dL Hct 39.3 L (42-52) % MCV 99.2 (80-100) fL MCH 33.8 (25-34) pg MCHC 34.1 (32-36) g/dL RDW Std Deviation 49.5 H (36.4-46.3) fL RDW Coeff of Jennifer 13.8 (11.5-14.5) % Plt Count 122 L (130-400) K/uL MPV 11.4 H (7.4-10.4) fL Immature Gran % (Auto) 0.3 % Neut % (Auto) 44.1 % Lymph % (Auto) 43.8 % [place] % (Auto) 7.3 % Eos % (Auto) 4.0 % Baso % (Auto) 0.5 % Immature Gran # (Auto) 0.03 H (0.00-0.02) K/uL Neut # (Auto) 3.84 (1.4-6.5) K/uL Lymph # (Auto) 3.82 H (1.2-3.4) K/uL [place] # (Auto) 0.64 H (0.11-0.59) K/uL Eos # (Auto) 0.35 (0-0.5) K/uL Baso # (Auto) 0.04 (0-0.2) K/uL Sodium (136-145) mmol/L Potassium (3.5-5.1) mmol/L Chloride (98-107) mmol/L Carbon Dioxide (21-32) mmol/L Anion Gap (3-11) BUN (7-18) mg/dl Creatinine (0.6-1.4) mg/dl Est Cr Clr Drug Dosing ml/min Est GFR ( Amer) Est GFR (Non-Af Amer) BUN/Creatinine Ratio (10-20) Glucose (70-99) mg/dl POC Glucose 112 H 110 H (70-99) Calcium (8.5-10.1) mg/dl Phosphorus (2.5-4.9) mg/dl Magnesium (1.8-2.4) mg/dl Total Bilirubin (0.2-1) mg/dl AST (15-37) U/L ALT (12-78) U/L Alkaline Phosphatase (45-117) U/L Total Protein (6.4-8.2) gm/dl Albumin (3.4-5.0) gm/dl Globulin (2.5-4.0) gm/dl Albumin/Globulin Ratio (0.9-2) PG Care Time/CCT Total # of Minutes Spent Total Time Spent with Patient: Total time spent is greater than 50% in coordination of care (as documented) at patient's floor/unit and/or counseling patient:
[2019-08-15] MEDS: ZOLPIDEM TARTRATE 5 MG TAB PO SCH (21:15)
[2019-08-15] MEDS: ASPIRIN 325 MG ECTAB PO SCH (21:15)
[2019-08-15] MEDS: LATANOPROST 0.005% OP SOLN 2.5 ML BTL OP SCH (21:17)
[2019-08-15] MEDS: GEMFIBROZIL 600 MG TAB PO SCH (21:31)
[2019-08-15] MEDS: ACETAMINOPHEN 500 MG TAB PO PRN (23:41)
[2019-08-16 06:14] LABS: BUN Creatinine Ratio 13.3 (10-20); Calcium 8.3 mg/dl (8.5-10.1); Creatinine Clr Calc Pharmacy 57.9 ml/min; Est GFR (African American) 75.2; Est GFR (Non-African American) 64.9; Potassium 3.6 mmol/L (3.5-5.1)
[2019-08-16] MEDS ORDERED: POTASSIUM CHLORIDE 10 MEQ TABCR PO SCH (09:15)
[2019-08-16] MEDS: GEMFIBROZIL 600 MG TAB PO SCH (09:18)
[2019-08-16] MEDS: ENOXAPARIN INJ 30 MG/0.3 ML SYR SQ SCH (09:20)
[2019-08-16] MEDS: SPIRONOLACTONE 25 MG TAB PO SCH (09:20)
[2019-08-16] MEDS: guaiFENesin 600 MG TABCR PO SCH (09:21)
[2019-08-16] MEDS: PANTOprazole 40 MG TAB PO SCH (09:21)
[2019-08-16] MEDS: ALLOPURINOL 300 MG TAB PO SCH (09:21)
[2019-08-16] MEDS: INSULIN ASPART 100 UNITS/ML 3 ML PEN SC SCH (09:26)
[2019-08-16] MEDS: PREGABALIN 150 MG CAP PO SCH (09:30)
[2019-08-16] MEDS: POTASSIUM CHLORIDE 10 MEQ TABCR PO SCH (09:37)
--- NOTE | 2019-08-16 09:48 | Surgery Progress Note ---
Date of Service August 16, 2019 Assessment & Plan (1) SBO (small bowel obstruction): resolved discharge per medical team will sign off Present on Admission?: Yes Subjective doing well bowels moving well diarrhea resolved SBO resolved Review of Systems Constitutional: no fever and no chills Respiratory: no cough and no dyspnea Cardiovascular: no chest pain and no dyspnea Gastrointestinal: no abdominal pain, no nausea and no vomiting Genitourinary: no dysuria Musculoskeletal: no back pain Physical Exam Constitutional: well developed and well nourished Neck: trachea midline Respiratory: normal respiratory effort, lungs clear to auscultation Cardiovascular: RRR, no murmur, no edema Gastrointestinal (Abdomen): Inspection/Auscultation: normal bowel sounds Percussion/Palpation: abdomen soft; abdomen nontender Musculoskeletal: Head/Neck/Chest: normocephalic and head atraumatic Skin: no rashes, warm and dry Results & Data Vital Signs (Past 12 Hours) Vital Signs Temp Pulse Pulse Resp BP Pulse Ox 08/16/19 07:56 36.6 C 62 69 14 156/88 H 92 08/15/19 22:58 36.7 C 72 16 169/76 H 93
[2019-08-16] MEDS: EZETIMIBE 10 MG TABLET PO SCH (11:03)
[2019-08-16] MEDS: LACTATED RINGER'S 1,000 ML IV SCH (11:41)
--- NOTE | 2019-08-24 04:44 | Coding Query ---
CODING QUERY To promote full compliance with coding requirements relating to patient care, provider participation is requested in all cases of windshield wiper repairer uncertainty. Please assist us with the question(s) below: Coding Question(s): Patient admitted for intestinal obstruction due to adhesions. H/P Addendum mentions possible diagnosis of CLL. Progress note 08/15 " chronic leukocytosis dating back to 2013". Patient folllows with . Please check below the phrase that applies. Thanks for your help! 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 Chronic Lymphocytic Leukemia Patient has leukocytosis Cannot Clinically Correlate if patient has CLL or leukocytosis Other/ Please document: Principal Diagnosis: "that condition established after study, to be chiefly responsible for occasioning the admission of the patient to the hospital for care." Co-Existing Principal Diagnosis: "when two or more diagnoses equally meet the criteria for principal diagnosis as determined by the circumstances of admission, diagnostic work up, and/or therapy provided, and the Alphabetic Index, Tabular List, or another coding guideline does not provide sequencing direction, any one of the diagnoses may be sequenced first." "When the physician has documented what appears to be a current diagnosis in the body of the record, but has not included the diagnosis in the final diagnostic statement, the physician should be asked whether the diagnosis should be added." (Source Coding [facility] 2 QTR90. p3-4) DANAYD
== END 2019-08-16 12:19 | disposition home or self-care (01) | DRG 389 ==
LOC: ED 21:53 → SUATTDRO 08-12 01:23 → 3N 08-12 01:23

== ENCOUNTER 2019-08-27 12:37 | Inpatient (IN) ==
[2019-08-27] MEDS ORDERED: ACETAMINOPHEN 325 MG TAB PO STA (13:27)
[2019-08-27] MEDS ORDERED: SODIUM CHLORIDE 0.9% 500 ML IV SCH (13:30)
--- NOTE | 2019-08-27 13:50 | XRay Report ---
XR chest 1V portable CLINICAL HISTORY: weakness COMPARISON STUDY: 10/21/2017 FINDINGS: There is elevation right hemidiaphragm. There are postsurgical changes of a midline sternot ilia. There is no focal pulmonary consolidation. There is no failure. There is minor left basilar atel ectasis.[ IMPRESSION: Chronic elevation of the right hemidiaphragm. No acute findings. Electronically signed by: Juan Jose Atkins M.D. 08/27/2019 1:49 PM
[2019-08-27 14:12] LABS: Hemoglobin 15.3 g/dL (14.0-18.0); Mean Corpuscular Hgb Conc 33.3 g/dL (32-36); Mean Corpuscular Volume 99.4 fL (80-100); Mean Platelet Volume 11.8 fL (7.4-10.4); Platelet Count 181 K/uL (130-400); RDW Coefficient of Variation 13.8 % (11.5-14.5); RDW Standard Deviation 49.5 fL (36.4-46.3); Red Blood Count 4.63 M/uL (4.7-6.1); White Blood Count 15.58 K/uL (4.8-10.8)
[2019-08-27 14:27] LABS: Alanine Aminotransferase 39 U/L (12-78); Albumin Level 3.7 gm/dl (3.4-5.0); Aspartate Aminotransferase 19 U/L (15-37); BUN Creatinine Ratio 15.7 (10-20); Blood Urea Nitrogen 17 mg/dl (7-18); Calcium 9.4 mg/dl (8.5-10.1); Carbon Dioxide 26 mmol/L (21-32); Chloride 105 mmol/L (98-107); Creatinine Clr Calc Pharmacy 55.9 ml/min; Est GFR (African American) 72.7; Est GFR (Non-African American) 62.7; Glucose 184 mg/dl (70-99); Potassium 3.8 mmol/L (3.5-5.1); Sodium 135 mmol/L (136-145)
[2019-08-27 14:38] LABS: Alkaline Phosphatase 74 U/L (45-117); Bilirubin,Total 0.9 mg/dl (0.2-1); Globulin 3.9 gm/dl (2.5-4.0); Thyroid Stimulating Hormone 0.635 uIu/ml (0.300-4.500); Total Protein 7.6 gm/dl (6.4-8.2); Troponin I < 0.015 ng/ml (0-0.045)
[2019-08-27 14:57] LABS: Basophils # (auto) 0.08 K/uL (0-0.2); Basophils % (auto) 0.5 %; Eosinophils # (auto) 0.35 K/uL (0-0.5); Eosinophils % (auto) 2.2 %; Immature Granulocytes % (auto) 0.6 %; Lymphocytes # (auto) 5.46 K/uL (1.2-3.4); Monocytes # (auto) 1.22 K/uL (0.11-0.59); Monocytes % (auto) 7.8 %; Neutrophils # (auto) 8.37 K/uL (1.4-6.5); Neutrophils % (auto) 53.9 %
--- NOTE | 2019-08-27 17:11 | History & Physical Report ---
Date of Service August 27, 2019 Assessment & Plan (1) Generalized weakness: Patient returns to the hospital with complaint of generalized weakness, mechanical fall x 2 and inability to get up. He is concerned about being at home and not being able to get up should he fall again. Also concerned about his who is elderly as well and unable to help him up. -Observation to medical floor -PT/OT assessment for rehab recommendations -Case management assessment for placement Present on Admission?: Yes (2) Falls: As above. Patient requesting placement at a rehab facility Present on Admission?: Yes (3) CAD, multiple vessel: Patient denies CP/palpitations/SOB or syncope. -Continue home medications, ASA, Zetia/Gemfibrozil, Spironolactone Present on Admission?: Yes (4) Diabetes mellitus: Chronic. Stable -Hold oral agents for now -Lantus 7u BID -ISS -Continue Lyrica Present on Admission?: Yes (5) Gastroesophageal reflux disease: Chronic. Stable -Continue Protonix 40mg po daily Present on Admission?: Yes (6) Hypercholesterolemia: Chronic. Patient is statin intolerant -Continue Zetia and Gemfibrozil Present on Admission?: Yes (7) Hypertension: Chronic. Blood pressure well controlled -Continue Spironolactone. -Continue to monitor F/E/N - Heplock. Monitor electrolytes and replete as needed. Heart healthy/CC diet as tolerated Ppx - Lovenox 40 for DVT Code - Full Dispo - Observation to medical floor History of Present Illness Chief Complaint: Fall Primary Care Provider: Miles Neil MD Basilio Wiggins is a pleasant 84yo C male recently admitted to [facility] on 08/16/19 with abdominal pain, nausea and vomiting. Patient found to have a small bowel obstruction most likely secondary to adhesions from prior surgical intervention. General Surgery was consulted and the patient was managed conservatively with resolution of symptoms and normal BMs in 3 days. He was discharged home in stable condition. He feels that he has been doing fairly well at home. He attempted to use his recumbent bike on one occasion and has been trying to walk more. He does feel somewhat weak. On 08/25/19 he was using his walker and sustained a mechanical fall in the bathroom. He had a difficult time getting up. He lives with his who was unable to assist him up so he contacted his grandson. Later in the evening he had a second fall and again had to contact his grandson to help him up due to weakness. He feels that his legs went out from under him. Denies dizziness/CP/palpitations/syncope or head trauma. He was discussing with his family and is requesting placement in a rehabilitation facility. ER Course: Tylenol, NSS Allergies Allergy/AdvReac Type Severity Reaction Status Date / Time hydrochlorothiazide Allergy Severe Hives Verified 08/27/19 15:10 Iodinated Contrast Media Allergy Severe Convulsions Verified 08/27/19 15:10 adhesive Allergy Intermediate RASH;PULLS Verified 08/27/19 15:10 SKIN OFF levofloxacin Allergy Mild HIVES, Verified 08/27/19 15:10 PRURITIS NSAIDS (Non-Steroidal Allergy Mild Elevated BP Verified 08/27/19 15:10 Anti-Inflamma amiodarone Allergy Unknown RASH Verified 08/27/19 15:10 cephalexin Allergy Unknown AFTER 14 Verified 08/27/19 15:10 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 [id number] Reductase Allergy Unknown Unknown Verified 08/27/19 15:10 Inhibitor terazosin [From Hytrin] Allergy Unknown Unknown Verified 08/27/19 15:10 Cephalosporins AdvReac Intermediate nausea Verified 08/27/19 15:10 after repeated dose nifedipine AdvReac Intermediate Sick to Verified 08/27/19 15:10 stomach atorvastatin AdvReac Unknown MUSCLE Verified 08/27/19 15:10 ACHES doxycycline AdvReac Unknown gi upset Verified 08/27/19 15:10 Home Medications Home Medications Medication Instructions Recorded Confirmed Type acetaminophen 650 mg 1,300 mg PO Q8H PRN tab 07/01/18 08/27/19 History tablet,extended release allopurinol 300 mg tablet 300 mg PO QAM 07/01/18 08/27/19 History aspirin 325 mg tablet 325 mg PO QPM tab 07/01/18 08/27/19 History lactobacillus combination no.8 3 3,000 mmu cells PO DAILY 07/01/18 08/27/19 History billion cell capsule latanoprost 0.005 % eye drops 1 drops OP QPM 09/11/18 08/27/19 History potassium chloride 10 mEq 10 meq PO DAILY PRN tab 04/15/19 08/27/19 History tablet,extended release bupivacaine 0.25 % (2.5 mg/mL) See Rx Instructions .ROUTE 08/26/19 12/05/19 Rx injection solution .COMPLEX #50 ml pantoprazole 40 mg tablet,delayed 40 mg PO DAILY #180 tab 06/26/19 08/27/19 Rx release glipizide 10 mg tablet, extended 10 mg PO BID #180 tab 07/28/19 08/27/19 Rx release 24 hr spironolactone 50 mg tablet 50 mg PO DAILY #90 tab 07/28/19 08/27/19 Rx pregabalin 150 mg capsule 150 mg PO BID #180 cap 07/31/19 08/27/19 Rx gemfibrozil [Lopid] 300 mg PO DAILY 08/11/19 08/27/19 History cyanocobalamin (vitamin B-12) 2,000 mcg PO DAILY 30 Days #60 cap 08/15/19 08/27/19 Rx zolpidem 5 mg tablet 5 mg PO HS #90 tab 08/24/19 08/27/19 Rx Pain Pump 1 dose NOT APPLICABLE UD 08/27/19 08/27/19 History ezetimibe [Zetia] 10 mg PO QPM 08/27/19 08/27/19 History guaifenesin [Mucinex] 1,200 mg PO Q12 PRN 08/27/19 08/27/19 History hydroxyzine pamoate [Vistaril] 25 mg PO HS PRN 08/27/19 08/27/19 History Past Med/Surg History Medical History CAD (coronary artery disease) (Chronic) Cataracts, bilateral (Chronic) Chronic intractable pain (Chronic) Chronic leg pain (Chronic) Coronary artery disease, occlusive (Chronic) Diabetes mellitus (Chronic) Gastroesophageal reflux disease (Chronic) Gastropathy (Chronic) Glaucoma (Chronic) Gout, joint (Chronic) Hypercholesterolemia (Chronic) Hyperlipidemia (Chronic) Hypertension (Chronic) Hypertension (Chronic) Incisional hernia (Chronic) Low back pain (Chronic) Lumbar postlaminectomy syndrome (Chronic) Lumbar spinal stenosis (Chronic) Lung nodule (Chronic) Muscle weakness (generalized) (Chronic) Neuropathy (Chronic) Obstructive sleep apnea (Chronic) Osteoarthritis (Chronic) Peripheral neuropathy (Chronic) Sleep apnea (Chronic) Sleep apnea (Chronic) 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) Umbilical hernia (Resolved) 2006 Surgical History History of appendectomy (Chronic) 1947 History of back surgery (Chronic) x4 laminectomy 1984; AL Fusion L5-S1 1988; L4, L5 S1 [id number]; S/P triple vessel bypass (Chronic) 2001 Status post right partial knee replacement (Chronic) partial 2005 Family History Other Family history non-contributory Social History Preferred Language: [place] Communication Ability: Effective Visual Impairment: Limited Hearing Ability: Normal Network Technician Required: No Beliefs That Will Affect Care: None marital status: Current Living Situation: Spouse current occupational status: retired Other Information That Helps Us Care for You: No Feels Safe at Home: Yes Safety Concerns: Feels Safe At This Time Smoking Status: Former smoker Smoking End Date: "years ago" ; Second Hand Exposure: No ; Hx Alcohol Use: Yes Alcohol type: wine Hx Substance Use: No Review of Systems Review of Systems: All systems reviewed & are unremarkable except as noted in HPI & below Physical Exam Physical Exam: General: patient resting comfortably, NAD, non-toxic in appearance, AA&O x 4 Skin: warm, dry, intact, no rashes or lesions HEENT: NC/AT, PERRL, EOMI, anicteric sclera, conjunctiva without injection, external ear normal to inspection and nontender, nares patent, moist mucus membranes, dentition intact, no oropharyngeal lesions, neck supple, trachea midline, no LAD, no thyromegaly, no JVD Heart: +S1/S2, regular, no m/r/g Lungs: equal air entry bilaterally, no rales/rhonchi/wheezes Abd: +BS, soft, NT/ND, no masses/organomegaly/ascites Ext: warm, 2+ pulses in UE/LE bilaterally, no clubbing/cyanosis or edema Neuro: nonfocal, patient AA&O x 4, speech intact, no facial droop, moving all extremities on command with equal strength 5/5 Results & Data Vital Signs (Past 12 Hours) Vital Signs Temp Pulse Pulse Resp BP BP Pulse Ox 08/27/19 15:29 89 90 18 137/88 94 08/27/19 12:40 37.1 C 93 H 14 113/73 91 Laboratory Results Lab Results 08/27/19 08/27/19 08/27/19 Range/Units 13:56 13:56 13:56 WBC 15.58 H (4.8-10.8) K/uL RBC 4.63 L (4.7-6.1) M/uL Hgb 15.3 (14.0-18.0) g/dL Hct 46.0 (42-52) % MCV 99.4 (80-100) fL MCH 33.0 (25-34) pg MCHC 33.3 (32-36) g/dL RDW Std Deviation 49.5 H (36.4-46.3) fL RDW Coeff of Jennifer 13.8 (11.5-14.5) % Plt Count 181 (130-400) K/uL MPV 11.8 H (7.4-10.4) fL Immature Gran % (Auto) 0.6 % Neut % (Auto) 53.9 % Lymph % (Auto) 35.0 % Lares % (Auto) 7.8 % Eos % (Auto) 2.2 % Baso % (Auto) 0.5 % Immature Gran # (Auto) 0.10 H (0.00-0.02) K/uL Neut # (Auto) 8.37 H (1.4-6.5) K/uL Lymph # (Auto) 5.46 H (1.2-3.4) K/uL Lares # (Auto) 1.22 H (0.11-0.59) K/uL Eos # (Auto) 0.35 (0-0.5) K/uL Baso # (Auto) 0.08 (0-0.2) K/uL Sodium 135 L (136-145) mmol/L Potassium 3.8 (3.5-5.1) mmol/L Chloride 105 (98-107) mmol/L Carbon Dioxide 26 (21-32) mmol/L Anion Gap 5.0 (3-11) BUN 17 (7-18) mg/dl Creatinine 1.08 (0.6-1.4) mg/dl Est Cr Clr Drug Dosing 55.9 ml/min Est GFR ( Amer) 72.7 Est GFR (Non-Af Amer) 62.7 BUN/Creatinine Ratio 15.7 (10-20) Glucose 184 H (70-99) mg/dl POC Glucose (70-99) Calcium 9.4 (8.5-10.1) mg/dl Phosphorus 2.5 (2.5-4.9) mg/dl Magnesium 2.1 (1.8-2.4) mg/dl Total Bilirubin 0.9 (0.2-1) mg/dl AST 19 (15-37) U/L ALT 39 (12-78) U/L Alkaline Phosphatase 74 (45-117) U/L Troponin I < 0.015 (0-0.045) ng/ml Total Protein 7.6 (6.4-8.2) gm/dl Albumin 3.7 (3.4-5.0) gm/dl Globulin 3.9 (2.5-4.0) gm/dl Albumin/Globulin Ratio 1.0 (0.9-2) TSH 0.635 (0.300-4.500) uIu/ml 08/27/19 08/27/19 Range/Units 19:58 20:00 WBC (4.8-10.8) K/uL RBC (4.7-6.1) M/uL Hgb (14.0-18.0) g/dL Hct (42-52) % MCV (80-100) fL MCH (25-34) pg MCHC (32-36) g/dL RDW Std Deviation (36.4-46.3) fL RDW Coeff of Jennifer (11.5-14.5) % Plt Count (130-400) K/uL MPV (7.4-10.4) fL Immature Gran % (Auto) % Neut % (Auto) % Lymph % (Auto) % Lares % (Auto) % Eos % (Auto) % Baso % (Auto) % Immature Gran # (Auto) (0.00-0.02) K/uL Neut # (Auto) (1.4-6.5) K/uL Lymph # (Auto) (1.2-3.4) K/uL Lares # (Auto) (0.11-0.59) K/uL Eos # (Auto) (0-0.5) K/uL Baso # (Auto) (0-0.2) K/uL Sodium (136-145) mmol/L Potassium (3.5-5.1) mmol/L Chloride (98-107) mmol/L Carbon Dioxide (21-32) mmol/L Anion Gap (3-11) BUN (7-18) mg/dl Creatinine (0.6-1.4) mg/dl Est Cr Clr Drug Dosing ml/min Est GFR ( Amer) Est GFR (Non-Af Amer) BUN/Creatinine Ratio (10-20) Glucose (70-99) mg/dl POC Glucose 202 H 211 H (70-99) Calcium (8.5-10.1) mg/dl Phosphorus (2.5-4.9) mg/dl Magnesium (1.8-2.4) mg/dl Total Bilirubin (0.2-1) mg/dl AST (15-37) U/L ALT (12-78) U/L Alkaline Phosphatase (45-117) U/L Troponin I (0-0.045) ng/ml Total Protein (6.4-8.2) gm/dl Albumin (3.4-5.0) gm/dl Globulin (2.5-4.0) gm/dl Albumin/Globulin Ratio (0.9-2) TSH (0.300-4.500) uIu/ml Diagnostic Findings XR chest 1V portable CLINICAL HISTORY: weakness COMPARISON STUDY: 10/21/2017 FINDINGS: There is elevation right hemidiaphragm. There are postsurgical changes of a midline sternotomy. There is no focal pulmonary consolidation. There is no failure. There is minor left basilar atelectasis.[ IMPRESSION: Chronic elevation of the right hemidiaphragm. No acute findings. Electronically signed by: Juan Jose Atkins M.D. 08/27/2019 1:49 PM Dictated: 08/27/19 1349 Transcribed: 08/27/19 1349 ECG Additional Comments: The study shows SR at 85bpm with first degree AV block, AV=863, QRS=80, ZSc=934, left axis deviation, poor r wave progression Code Status & VTE Plan Code Status FULL VTE Prophylaxis Plan VTE Prophylaxis will be ordered: Yes PG Care Time/CCT Total # of Minutes Spent Total Time Spent with Patient: Total time spent is greater than 50% in coordination of care (as documented) at patient's floor/unit and/or counseling patient: (1) Falls Encounter type: initial encounter Qualified Code(s): W19.XXXA - Unspecified fall, initial encounter (2) Diabetes mellitus Diabetes mellitus type: type 2 Diabetes mellitus half-way insulin use: without half-way use Diabetes mellitus complication status: without complication Qualified Code(s): E11.9 - Type 2 diabetes mellitus without complications (3) Gastroesophageal reflux disease Esophagitis presence: esophagitis presence not specified Qualified Code(s): K21.9 - Gastro-esophageal reflux disease without esophagitis (4) Hypertension Hypertension type: essential hypertension Qualified Code(s): I10 - Essential (primary) hypertension
--- NOTE | 2019-08-27 18:22 | Emergency Department Note ---
Entered by Alejandro Garcia acting as a scribe for History of Present Illness General Chief complaint: Leg Weakness, Bilateral Time Seen by Provider: 08/27/19 12:56 Source: patient History of Present Illness Provider complaint: Weakness Onset (ago): week(s) 2 Location: lower extremity Pain Consistency: + other (Worsening) Maximum Pain Intensity: 7 Current Pain Intensity: 7 Associated symptoms: + other (Back pain); no fever/chills and no headaches The patient is an 84 year old male w/ PMHx CAD, HLD, HTN, DVT, DM, CABG, and SBO who presents to the ED w/ CC of worsening bilateral lower extremity weakness that has been worsening since he was discharged from the hospital late last month. The patient states that his weakness had caused him to fall twice last evening and needed his grandson to come over to help him up. The patient reports that he walks with a walker at baseline but his legs were too weak to hold his weight up even with the assistance. The patient adds that he was in the hospital for 6 days last month for a SBO which did not require surgical intervention. While hospitalized the patient received 2 strong abx. Per the patient's , the patient has a history of becoming weak when he is given strong antibiotics. The patient also mentioned that he has chronic lower back pa in and needs a knee replacement. The patient rates the pain as a 7/10. The patient denies any head injury. Home Medications Home Medications Medication Instructions Recorded Confirmed Type acetaminophen 650 mg 1,300 mg PO Q8H PRN tab 07/01/18 08/27/19 History tablet,extended release allopurinol 300 mg tablet 300 mg PO QAM 07/01/18 08/27/19 History aspirin 325 mg tablet 325 mg PO QPM tab 07/01/18 08/27/19 History lactobacillus combination no.8 3 3,000 mmu cells PO DAILY 07/01/18 08/27/19 History billion cell capsule latanoprost 0.005 % eye drops 1 drops OP QPM 09/11/18 08/27/19 History potassium chloride 10 mEq 10 meq PO DAILY PRN tab 04/15/19 08/27/19 History tablet,extended release bupivacaine 0.25 % (2.5 mg/mL) See Rx Instructions .ROUTE 05/18/19 08/27/19 Rx injection solution .COMPLEX #50 ml pantoprazole 40 mg tablet,delayed 40 mg PO DAILY #180 tab 06/26/19 08/27/19 Rx release glipizide 10 mg tablet, extended 10 mg PO BID #180 tab 07/28/19 08/27/19 Rx release 24 hr spironolactone 50 mg tablet 50 mg PO DAILY #90 tab 07/28/19 08/27/19 Rx pregabalin 150 mg capsule 150 mg PO BID #180 cap 07/31/19 08/27/19 Rx gemfibrozil [Lopid] 300 mg PO DAILY 08/11/19 08/27/19 History cyanocobalamin (vitamin B-12) 2,000 mcg PO DAILY 30 Days #60 cap 08/15/19 08/27/19 Rx zolpidem 5 mg tablet 5 mg PO HS #90 tab 08/24/19 08/27/19 Rx Pain Pump 1 dose NOT APPLICABLE UD 08/27/19 08/27/19 History ezetimibe [Zetia] 10 mg PO QPM 08/27/19 08/27/19 History guaifenesin [Mucinex] 1,200 mg PO Q12 PRN 08/27/19 08/27/19 History hydroxyzine pamoate [Vistaril] 25 mg PO HS PRN 08/27/19 08/27/19 History Allergies Allergy/AdvReac Type Severity Reaction Status Date / Time hydrochlorothiazide Allergy Severe Hives Verified 08/27/19 15:10 Iodinated Contrast Media Allergy Severe Convulsions Verified 08/27/19 15:10 adhesive Allergy Intermediate RASH;PULLS Verified 08/27/19 15:10 SKIN OFF levofloxacin Allergy Mild HIVES, Verified 08/27/19 15:10 PRURITIS NSAIDS (Non-Steroidal Allergy Mild Elevated BP Verified 08/27/19 15:10 Anti-Inflamma amiodarone Allergy Unknown RASH Verified 08/27/19 15:10 cephalexin Allergy Unknown AFTER 14 Verified 08/27/19 15:10 DAYS-DEVELOPED GASTRITIS-2017 Lqdxjgf-Dkl-Bjg Reductase Allergy Unknown Unknown Verified 08/27/19 15:10 Inhibitor terazosin [From Hytrin] Allergy Unknown Unknown Verified 08/27/19 15:10 Cephalosporins AdvReac Intermediate nausea Verified 08/27/19 15:10 after repeated dose nifedipine AdvReac Intermediate Sick to Verified 08/27/19 15:10 stomach atorvastatin AdvReac Unknown MUSCLE Verified 08/27/19 15:10 ACHES doxycycline AdvReac Unknown gi upset Verified 08/27/19 15:10 Past Med/Surg History Medical History CAD (coronary artery disease) (Chronic) Cataracts, bilateral (Chronic) Chronic intractable pain (Chronic) Chronic leg pain (Chronic) Coronary artery disease, occlusive (Chronic) Diabetes mellitus (Chronic) Gastroesophageal reflux disease (Chronic) Gastropathy (Chronic) Glaucoma (Chronic) Gout, joint (Chronic) Hypercholesterolemia (Chronic) Hyperlipidemia (Chronic) Hypertension (Chronic) Hypertension (Chronic) Incisional hernia (Chronic) Low back pain (Chronic) Lumbar postlaminectomy syndrome (Chronic) Lumbar spinal stenosis (Chronic) Lung nodule (Chronic) Muscle weakness (generalized) (Chronic) Neuropathy (Chronic) Obstructive sleep apnea (Chronic) Osteoarthritis (Chronic) Peripheral neuropathy (Chronic) Sleep apnea (Chronic) Sleep apnea (Chronic) 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) Umbilical hernia (Resolved) 2006 Surgical History History of appendectomy (Chronic) 194 History of back surgery (Chronic) x4 laminectomy 1984; AL Fusion L5-S1 1988; L4, L5 S1 [id number]; S/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 and A total of 10 systems reviewed and were otherwise negative Physical Exam Vital Signs Vital Signs - 24 hr 08/27/19 12:40 08/27/19 15:29 08/27/19 17:37 Temperature 37.1 C Temperature Source Oral Pulse Rate 93 H 89 Pulse Rate [Apical] 90 97 H Respiratory Rate 14 18 20 Respiratory Depth Normal Normal Blood Pressure 113/73 Blood Pressure [Left Arm] 137/88 138/88 Blood Pressure Mean 86 Blood Pressure Mean [Left Arm] 104 104 Blood Pressure Position Lying Pulse Oximetry 91 94 94 Oxygen Delivery Method Room Air Room Air Room Air Sepsis Recent Fever Within 48 Hours No Sepsis New/Unexplained Change in Mental Status No Sepsis Action Taken by Nursing No Action Required GENERAL: Well appearing, well nourished, NAD, non-toxic. EYE EXAM: Normal conjunctiva. PERRL, no anisocoria and EOM's grossly intact w/o pain. OROPHARYNX: Dry mucus membranes. Grossly normal dentition. NECK: Supple, no nuchal rigidity, no adenopathy, non-tender. No signs of meningismus. LUNGS: Clear to auscultation. Normal chest wall mechanics. HEART: NSR, no MRG. ABDOMEN: Abdomen soft, non-tender, normo-active bowel sounds, no masses, no rebound or guarding. BACK: No CVA TTP. SKIN: No rashes and no bruising. UPPER EXTREMITIES: Upper extremities are grossly normal. LOWER EXTREMITIES: No pitting edema. No calf pain. NEURO EXAM: A&O x3, cranial nerves II-XII grossly intact, normal speech, moves all 4 extremities on command w/o issue. Course Course 1316: Past medical records reviewed. The patient was evaluated in room B10, and a complete history and physical examination were performed. 1516: I reevaluated the patient and he is resting in stable condition. He is going to attempt an ambulatory trial. 1550: I spoke to Dr. Horace Cam [facility] Hospitalist about the patient's case and she agreed to accept the patient for further evaluation. 1603: I updated the patient and family on the treatment plan and all parties are agreeable. Consultations Consultation #1: I spoke to Dr. Horace Cam [facility] Hospitalist about the patient's case and she agreed to accept the patient for further evaluation. Time: 15:50 Administered Medications Discontinued Medications Acetaminophen (Tylenol) 650 mg PO NOW STA Stop: 08/27/19 13:28 Last Admin: 08/27/19 13:54 Dose: 650 mg Documented by: [id number] Sodium Chloride (Nss) 500 mls @ 999 mls/hr IV .Q31M GRAYSON Stop: 08/27/19 14:00 Last Admin: 08/27/19 13:54 Dose: 999 mls/hr Documented by: [id number] Medical Decision Making Differential Diagnosis Differential Diagnosis includes but is not limited to dehydration, stroke, anemia, hypoglycemia, hyponatremia, hypernatremia, urinary tract infection, pneumonia, bronchitis, sepsis, gastroenteritis, additional abdominal pathology, metabolic abnormalities and infections. Medical Records Attestation: I reviewed the patient's medical records. Home Medications Current Medication List: was personally reviewed by me Laboratory Data Attestation: I reviewed the patient's lab results. Result diagrams: 08/27/19 13:56 08/27/19 13:56 Lab Results 08/27/19 08/27/19 Range/Units 13:56 13:56 WBC 15.58 H (4.8-10.8) K/uL RBC 4.63 L (4.7-6.1) M/uL Hgb 15.3 (14.0-18.0) g/dL Hct 46.0 (42-52) % MCV 99.4 (80-100) fL MCH 33.0 (25-34) pg MCHC 33.3 (32-36) g/dL RDW Std Deviation 49.5 H (36.4-46.3) fL RDW Coeff of Jennifer 13.8 (11.5-14.5) % Plt Count 181 (130-400) K/uL MPV 11.8 H (7.4-10.4) fL Immature Gran % (Auto) 0.6 % Neut % (Auto) 53.9 % Lymph % (Auto) 35.0 % [place] % (Auto) 7.8 % Eos % (Auto) 2.2 % Baso % (Auto) 0.5 % Immature Gran # (Auto) 0.10 H (0.00-0.02) K/uL Neut # (Auto) 8.37 H (1.4-6.5) K/uL Lymph # (Auto) 5.46 H (1.2-3.4) K/uL [place] # (Auto) 1.22 H (0.11-0.59) K/uL Eos # (Auto) 0.35 (0-0.5) K/uL Baso # (Auto) 0.08 (0-0.2) K/uL Sodium 135 L (136-145) mmol/L Potassium 3.8 (3.5-5.1) mmol/L Chloride 105 (98-107) mmol/L Carbon Dioxide 26 (21-32) mmol/L Anion Gap 5.0 (3-11) BUN 17 (7-18) mg/dl Creatinine 1.08 (0.6-1.4) mg/dl Est Cr Clr Drug Dosing 55.9 ml/min Est GFR ( Amer) 72.7 Est GFR (Non-Af Amer) 62.7 BUN/Creatinine Ratio 15.7 (10-20) Glucose 184 H (70-99) mg/dl Calcium 9.4 (8.5-10.1) mg/dl Total Bilirubin 0.9 (0.2-1) mg/dl AST 19 (15-37) U/L ALT 39 (12-78) U/L Alkaline Phosphatase 74 (45-117) U/L Troponin I < 0.015 (0-0.045) ng/ml Total Protein 7.6 (6.4-8.2) gm/dl Albumin 3.7 (3.4-5.0) gm/dl Globulin 3.9 (2.5-4.0) gm/dl Albumin/Globulin Ratio 1.0 (0.9-2) TSH 0.635 (0.300-4.500) uIu/ml Imaging Data Radiologist's Impression: Radiology results as stated below per my review and the radiologist's interpretation: XR chest 1V portable CLINICAL HISTORY: weakness COMPARISON STUDY: 10/21/2017 FINDINGS: There is elevation right hemidiaphragm. There are postsurgical changes of a midline sternotomy. There is no focal pulmonary consolidation. There is no failure. There is minor left basilar atelectasis.[ IMPRESSION: Chronic elevation of the right hemidiaphragm. No acute findings. Electronically signed by: Juan Jose Atkins M.D. 08/27/2019 1:49 PM ECG Data Attestation: I personally reviewed and interpreted this ECG as follows: Indication: + weakness Rate (beats per minute): 85 Rhythm: + sinus rhythm ECG Intervals/blocks: + First degree AV block and + Normal QRS ECG Burns: + Left axis deviation ECG ST segments: + T-wave inversions (Anterior) ECG Findings: + Q waves (Inferior) Comparison ECG Date: from (08/11/19) Change: no significant change Blood Pressure Blood Pressure Findings: Elevated blood pressure Blood Pressure Disposition: further management by hospitalist MDM Narrative The patient is an 84 year old male w/ PMHx CAD, HLD, HTN, DVT, DM, CABG, and SBO who presents to the ED w/ CC of worsening bilateral lower extremity weakness that has been worsening since he was discharged from the hospital late last month. Patient was seen and evaluated the bedside. The patient did present with concern for recurrent falls lower extremity weakness as well as may be the possibility of rehab placement. Patient does not have any focal deficits on exam. No saddle anesthesia. Patient denies striking his head and no LOC. Patient has no headache. The patient did have a recent admission for small bowel obstruction. The patient unfortunately may be suffering from deconditioning. Patient does have a mild white count but no infectious symptoms. Patient's troponin is not detectable. The patient did an ambulatory trial moderate was able to ambulate with the assistance of a walker which the patient does use at home. The patient's is concerned and still does not believe that she is able to care for him. I did speak the on-call hospitalist agreed to further evaluate treat the patient. Patient was admitted to medicine service for PT and OT and likely eventual placement for his weakness and deconditioning. Impression & Plan Generalized weakness, Falls, Physical deconditioning Discharge Plan Visit Data Chief Complaint: Leg Weakness, Bilateral ED Provider: Rhys Ward Discharge Problem: Generalized weakness, Falls, Physical deconditioning Patient Disposition: Being Evaluated by Hospitalist Forms Stand Alone Forms: My [facility] [place] [employer] Prescriptions Prescriptions: No Action aspirin 325 mg tablet 325 mg PO QPM RF: 0 acetaminophen 650 mg tablet extended release 1,300 mg PO Q8H PRN (Reason: Fever Or Pain) RF: 0 allopurinol [Zyloprim] 300 mg tablet 300 mg PO QAM RF: 0 lactobacillus combination no.8 [Adult Probiotic] 3 billion cell capsule 3,000 mmu cells PO DAILY RF: 0 potassium chloride 10 mEq tablet extended release 10 meq PO DAILY PRN (Reason: leg cramps) RF: 0 latanoprost 0.005 % drops 1 drops OP QPM RF: 0 bupivacaine 0.25 % (2.5 mg/mL) solution See Rx Instructions .ROUTE .COMPLEX Qty: 50 RF: 0 pantoprazole [Protonix] 40 mg tablet,delayed release (DR/EC) 40 mg PO DAILY Qty: 180 RF: 3 pregabalin [Lyrica] 150 mg capsule 150 mg PO BID Qty: 180 RF: 1 zolpidem [Ambien] 5 mg tablet 5 mg PO HS Qty: 90 RF: 0 glipizide 10 mg tablet extended release 24hr 10 mg PO BID Qty: 180 RF: 3 spironolactone [Aldactone] 50 mg tablet 50 mg PO DAILY Qty: 90 RF: 3 gemfibrozil [Lopid] 600 mg tablet 300 mg PO DAILY RF: 0 cyanocobalamin (vitamin B-12) 1,000 mcg capsule 2,000 mcg PO DAILY 30 Days Qty: 60 RF: 0 hydroxyzine pamoate [Vistaril] 25 mg Capsule 25 mg PO HS PRN (Reason: Sleep) RF: 0 Pain Pump 1 dose Not Applicable UD RF: 0 ezetimibe [Zetia] 10 mg tablet 10 mg PO QPM RF: 0 guaifenesin [Mucinex] 600 mg tablet extended release 12hr 1,200 mg PO Q12 PRN (Reason: Congestion) RF: 0 Referrals Referrals: Miles Neil MD [Primary Care Provider] - Discharge Problem: Falls Qualifiers: Encounter type: initial encounter Qualified Code(s): W19.XXXA - Unspecified fall, initial encounter The scribe's documentation has been prepared under my direction and personally reviewed by me in its entirety. I confirm that the note above accurately reflects all work, treatment, procedures, and medical decision making performed by me.
[2019-08-27] MEDS ORDERED: CARBOHYDRATES FOR HYPOGLYCEMIA PO PRN (19:26)
[2019-08-27] MEDS ORDERED: DOCUSATE SODIUM 100 MG CAP PO PRN (19:26)
[2019-08-27] MEDS ORDERED: BUPIVACAINE SCH (19:26)
[2019-08-27] MEDS ORDERED: POTASSIUM CHLORIDE 10 MEQ TABCR PO PRN (19:26)
[2019-08-27] MEDS ORDERED: DEXTROSE 50% 50 ML SYRINGE IV PRN (19:26)
[2019-08-27] MEDS ORDERED: GLUCAGON FOR INJ 1 MG VIAL SQ PRN (19:26)
[2019-08-27] MEDS ORDERED: GLUCOSE 40% GEL 15 GM TUBE PO PRN (19:26)
[2019-08-27] MEDS ORDERED: GLUCOSE 10 TABS/TUBE PO PRN (19:26)
[2019-08-27] MEDS ORDERED: guaiFENesin 600 MG TABCR PO PRN (19:26)
[2019-08-27] MEDS ORDERED: POLYETHYLENE (MIRALAX) 17 GM PACK PO PRN (19:26)
[2019-08-27] MEDS ORDERED: SODIUM CHLORIDE 0.9% 1000ML 1,000 ML IV SCH (19:26)
[2019-08-27] MEDS ORDERED: BUPIVACAINE INFIL PRN (19:38)
[2019-08-27] MEDS ORDERED: ACETAMINOPHEN 500 MG TAB PO PRN (19:41)
[2019-08-27] MEDS: INSULIN ASPART 100 UNITS/ML 3 ML PEN SC SCH (20:25)
[2019-08-27] MEDS: ENOXAPARIN INJ 40 MG/0.4 ML SYR SQ SCH (20:28)
[2019-08-27] MEDS: ZOLPIDEM TARTRATE 5 MG TAB PO SCH (20:28)
[2019-08-27] MEDS: PREGABALIN 150 MG CAP PO SCH (20:28)
[2019-08-27] MEDS: LATANOPROST 0.005% OP SOLN 2.5 ML BTL OP SCH (20:29)
[2019-08-27] MEDS: ASPIRIN 325 MG ECTAB PO SCH (20:31)
[2019-08-27] MEDS: EZETIMIBE 10 MG TABLET PO SCH (20:31)
[2019-08-27 20:42] LABS: Magnesium 2.1 mg/dl (1.8-2.4); Phosphorus 2.5 mg/dl (2.5-4.9)
[2019-08-27] MEDS: INSULIN GLARGINE SOLOSTAR 100 UNITS/ML 3 ML PEN SC SCH (21:25)
[2019-08-28] MEDS ORDERED: SPIRONOLACTONE 25 MG TAB PO SCH (09:00)
[2019-08-28] MEDS: CYANOCOBALAMIN 500 MCG TABLET (VITAMIN B-12) PO SCH (09:01)
[2019-08-28] MEDS: allopurinoL 300 MG TAB PO SCH (09:01)
[2019-08-28] MEDS: PANTOprazole 40 MG TAB PO SCH (09:01)
[2019-08-28] MEDS: LACTOBACILLUS ACIDOPHILUS (FLORANEX) TAB PO SCH (09:01)
[2019-08-28] MEDS: INSULIN GLARGINE SOLOSTAR 100 UNITS/ML 3 ML PEN SC SCH ×2 (09:03→21:03)
[2019-08-28 09:05] LABS: Appearance Urine Clear (Clear); Bacteria Urine Automated Negative (Negative); Bilirubin Urine Negative (Negative); Blood Urine Negative (Negative); Cast Urine Automated 0 /lpf (0-5); Color Urine Yellow; Epithelial Cell Urine Auto 0-5 /lpf (0-5); Glucose Urine UA Negative (Negative); Ketones Urine Negative (Negative); Leukocyte Esterase Urine Negative (Negative); Nitrite Urine Negative (Negative); Protein Urine 1+ (Negative); RBC Urine Automated 0-4 /hpf (0-4); Specific Gravity Urine 1.016 (1.000-1.030); Urobilinogen Urine Negative (Negative); pH Urine 5.5 (4.5-7.5)
[2019-08-28] MEDS: INSULIN ASPART 100 UNITS/ML 3 ML PEN SC SCH ×4 (09:08→21:02)
[2019-08-28] MEDS: PREGABALIN 150 MG CAP PO SCH ×2 (09:11→22:52)
[2019-08-28] MEDS: GEMFIBROZIL 600 MG TAB PO SCH (12:13)
--- NOTE | 2019-08-28 14:54 | Hospitalist Progress Note ---
Date of Service August 28, 2019 Assessment & Plan (1) Generalized weakness: * Patient returns to the hospital with complaint of generalized weakness, mechanical fall x 2 and inability to get up. He is concerned about being at home and not being able to get up should he fall again. Also concerned about his who is elderly as well and unable to help him up. Curious to see if patient orthostatic despite high BP, as falls occurring after standing up/twisting motion * PT/OT assessment for rehab recommendations --> multiple conversations with patient, with ultimate decision to pursue inpatient treatment at [facility] -- CM working on insurance * Case management assessment for placement * UA, CXR without evidence of infection (2) Falls: * As above. Patient requesting placement at a rehab facility (3) CAD, multiple vessel: * S/P CABG 2001. * Not on BB secondary to bradycardia * Continued home ASA * Is statin intolerant-is on Zetia and gemfibrozil -- continue * Patient denies CP/palpitations/SOB or syncope. (4) Diabetes mellitus: * Chronic. Stable. Patient previously on metformin but unable to tolerate. * Hold oral agents for now * Lantus 7u BID -- patient has been refusing insulin -- states he is very good about controlling his sugars at home with diet, although sugars were elevated during last admission as well * ISS * Continue Lyrica (5) Gastroesophageal reflux disease: * Chronic. Stable * Continue Protonix 40mg po daily (6) Hypercholesterolemia: * Chronic. Patient is statin intolerant * Continue Zetia and Gemfibrozil (7) Hypertension: * Chronic. Blood pressure well controlled. Patient had been off spironolactone for past four days. Did receive this morning * Will hold AM dose, as patient's BP low/normal -- currently 116/78 and has been running low normal * Patient does have pain pump with catapres, and could possibility be having absorption in sympathetic chain, causing lower BP? * Continue to monitor (8) Obstructive sleep apnea: * Patient with CPAP, although somewhat non-complaint up until recently * Patient without CPAP in room- will order CPAP inpatient if patient unable to bring home device (9) Leukocytosis: * Chronic, dating back to 2013 with associated elevated lymphocytes and presence of smudge cells * Previous recommendations for outpatient follow-up with burrer marker axle * Follows with Dr. Neil as outpatient for this -- patient gets blood work every three months and would not like further follow up with burrer marker axle at this time * WBCs elevated at 15.6 on admission (10) Lumbar spinal stenosis: * S/p multiple spinal surgeries, laminectomies -- 1984 at [facility], [address] [place] [facility] [place] * Patient has intrathecal pain pump (11) DVT prophylaxis: * Lovenox 40mg SQ Dispo: hopeful discharge to [facility] possibly tomorrow or Saturday, CM working on insurance auth later this afternoon as patient initially wanting home therapy Supervising Physician Co-Signing Physician Notes Attending Attestation: Chart reviewed in detail, care plan d/w PA Kayla Espinosa. I agree w/ the soler components of her documentation. 84 yo male w/ recent hospital stay for SBO - treated nonoperatively. d/c home following that stay. Returns with weakness and falls. Vitals/labs remain acceptable. PT/OT. Likely needs rehab. Additional dx added to problem list - CKD stage 3 (CrCl at baseline <60). Miles Beckman MD Subjective Patient evaluated this afternoon. He states he was doing well at home but his knees felt like they buckled on him when he was going to the bathroom and he fell. It happened twice and patient concerned that unable to help him at home and is requesting rehab at [facility] for acute skilled rehab. He states he talked to his PCP and thought maybe it was micturation syncope, but states this is slightly different than what happened before. He states that before his whole body would get stiff and he would be unable to move, but now it is more with difficultyly when turning with his walker. He attributes it to weakness while hospitalized for his SBO and not being out of bed much. He does also state he uses a knee brace because he has problems with both knees, but has not been able to do anything about them due to other health issues, but admits he has not worn it in approximately 3 months because and him do not want him to use it as a "crutch". and patient admit he has been increasingly sleepy during the day, but admits to using his CPAP more regularly as of the last two weeks. states his blood pressure dropped during that time and they stopped his spironolactone about 4 days ago and his blood pressure has come back up. He does note that he had increased swelling of his feet prior to discharge, that was not present during examination in the morning, but did not tell anyone prior to discharge. No other complaints at this time. Review of Systems Constitutional: no fever and no chills Respiratory: no cough and no dyspnea Cardiovascular: no chest pain, no palpitations and no edema Gastrointestinal: no abdominal pain, no nausea, no vomiting, no constipation and no diarrhea/loose stools Genitourinary: no dysuria and no hematuria Musculoskeletal: + back pain (chronic) and + joint pain (bilateral knees, chronic) Integumentary: no rash and no lesions Neurologic: + falls (x2, 6 hours apart) Physical Exam Physical Exam: Constitutional WD/WN, vitals as above + obese; no acute distress Neck trachea midline, no thyromegaly Respiratory normal respiratory effort, lungs clear to auscultation no respiratory distress Cardiovascular Rate/Rhythm: regular rate and regular rhythm Heart Sounds: normal S1 and normal S2 Gastrointestinal (Abdomen) Inspection/Auscultation: normal bowel sounds Percussion/Palpation: abdomen soft; abdomen nontender, no guarding and no hepatosplenomegaly +pain pump present +umbilical hernia Skin no rashes, warm and dry Psychiatric A+Ox3, euthymic affect Lymphatic no cervical or axillary lymphadenopathy Results & Data Vital Signs (Past 12 Hours) Vital Signs Temp Pulse Resp BP Pulse Ox 08/28/19 07:29 36.6 C 91 H 18 155/92 H 91 Laboratory Results 08/28/19 08/28/19 08/28/19 Range/Units 11:42 08:10 07:53 Immature Gran % (Auto) % Neut % (Auto) % Lymph % (Auto) % [place] % (Auto) % Eos % (Auto) % Baso % (Auto) % Immature Gran # (Auto) (0.00-0.02) K/uL Neut # (Auto) (1.4-6.5) K/uL Lymph # (Auto) (1.2-3.4) K/uL [place] # (Auto) (0.11-0.59) K/uL Eos # (Auto) (0-0.5) K/uL Baso # (Auto) (0-0.2) K/uL POC Glucose 177 H 135 H (70-99) Phosphorus (2.5-4.9) mg/dl Magnesium (1.8-2.4) mg/dl Urine Color Yellow Urine Appearance Clear (Clear) Urine pH 5.5 (4.5-7.5) Ur Specific [place] 1.016 (1.000-1.030) Urine Protein 1+ H (Negative) Urine Glucose (UA) Negative (Negative) Urine Ketones Negative (Negative) Urine Blood Negative (Negative) Urine Nitrite Negative (Negative) Urine Bilirubin Negative (Negative) Urine Urobilinogen Negative (Negative) Ur Leukocyte Esterase Negative (Negative) Urine WBC (Auto) 1-5 (0-5) /hpf Urine RBC (Auto) 0-4 (0-4) /hpf U Hyaline Cast (Auto) 0 (0-5) /lpf U Epithel Cells (Auto) 0-5 (0-5) /lpf Urine Bacteria (Auto) Negative (Negative) 08/27/19 08/27/19 08/27/19 Range/Units 20:00 19:58 13:56 Immature Gran % (Auto) % Neut % (Auto) % Lymph % (Auto) % [place] % (Auto) % Eos % (Auto) % Baso % (Auto) % Immature Gran # (Auto) (0.00-0.02) K/uL Neut # (Auto) (1.4-6.5) K/uL Lymph # (Auto) (1.2-3.4) K/uL [place] # (Auto) (0.11-0.59) K/uL Eos # (Auto) (0-0.5) K/uL Baso # (Auto) (0-0.2) K/uL POC Glucose 211 H 202 H (70-99) Phosphorus 2.5 (2.5-4.9) mg/dl Magnesium 2.1 (1.8-2.4) mg/dl Urine Color Urine Appearance (Clear) Urine pH (4.5-7.5) Ur Specific [place] (1.000-1.030) Urine Protein (Negative) Urine Glucose (UA) (Negative) Urine Ketones (Negative) Urine Blood (Negative) Urine Nitrite (Negative) Urine Bilirubin (Negative) Urine Urobilinogen (Negative) Ur Leukocyte Esterase (Negative) Urine WBC (Auto) (0-5) /hpf Urine RBC (Auto) (0-4) /hpf U Hyaline Cast (Auto) (0-5) /lpf U Epithel Cells (Auto) (0-5) /lpf Urine Bacteria (Auto) (Negative) 08/27/19 Range/Units 13:56 Immature Gran % (Auto) 0.6 % Neut % (Auto) 53.9 % Lymph % (Auto) 35.0 % [place] % (Auto) 7.8 % Eos % (Auto) 2.2 % Baso % (Auto) 0.5 % Immature Gran # (Auto) 0.10 H (0.00-0.02) K/uL Neut # (Auto) 8.37 H (1.4-6.5) K/uL Lymph # (Auto) 5.46 H (1.2-3.4) K/uL [place] # (Auto) 1.22 H (0.11-0.59) K/uL Eos # (Auto) 0.35 (0-0.5) K/uL Baso # (Auto) 0.08 (0-0.2) K/uL POC Glucose (70-99) Phosphorus (2.5-4.9) mg/dl Magnesium (1.8-2.4) mg/dl Urine Color Urine Appearance (Clear) Urine pH (4.5-7.5) Ur Specific [place] (1.000-1.030) Urine Protein (Negative) Urine Glucose (UA) (Negative) Urine Ketones (Negative) Urine Blood (Negative) Urine Nitrite (Negative) Urine Bilirubin (Negative) Urine Urobilinogen (Negative) Ur Leukocyte Esterase (Negative) Urine WBC (Auto) (0-5) /hpf Urine RBC (Auto) (0-4) /hpf U Hyaline Cast (Auto) (0-5) /lpf U Epithel Cells (Auto) (0-5) /lpf Urine Bacteria (Auto) (Negative) PG Care Time/CCT Total # of Minutes Spent Total Time Spent with Patient: Total time spent is greater than 50% in coordination of care (as documented) at patient's floor/unit and/or counseling patient: (1) Diabetes mellitus Diabetes mellitus complication status: without complication Diabetes mellitus terminal superintendent insulin use: without terminal superintendent use Diabetes mellitus type: type 2 Qualified Code(s): E11.9 - Type 2 diabetes mellitus without complications (2) Gastroesophageal reflux disease Esophagitis presence: esophagitis presence not specified Qualified Code(s): K21.9 - Gastro-esophageal reflux disease without esophagitis (3) Hypertension Hypertension type: essential hypertension Qualified Code(s): I10 - Essential (primary) hypertension (4) Falls Encounter type: initial encounter Qualified Code(s): W19.XXXA - Unspecified fall, initial encounter
[2019-08-28 16:44] LABS: Hematocrit (blood only) 45.4 % (42-52); Hemoglobin 14.9 g/dL (14.0-18.0); Mean Corpuscular Hemoglobin 33.6 pg (25-34); Mean Corpuscular Hgb Conc 32.8 g/dL (32-36); Mean Corpuscular Volume 102.3 fL (80-100); Mean Platelet Volume 11.3 fL (7.4-10.4); Platelet Count 169 K/uL (130-400); RDW Coefficient of Variation 13.7 % (11.5-14.5); RDW Standard Deviation 51.9 fL (36.4-46.3); Red Blood Count 4.44 M/uL (4.7-6.1); White Blood Count 11.94 K/uL (4.8-10.8)
[2019-08-28 17:05] LABS: Albumin Level 3.4 gm/dl (3.4-5.0); BUN Creatinine Ratio 15.2 (10-20); Calcium 9.1 mg/dl (8.5-10.1); Est GFR (African American) 69.5; Potassium 3.9 mmol/L (3.5-5.1)
[2019-08-28 17:08] LABS: Albumin Globulin Ratio 0.9 (0.9-2); Bilirubin,Total 0.8 mg/dl (0.2-1); Globulin 3.7 gm/dl (2.5-4.0); Total Protein 7.1 gm/dl (6.4-8.2)
[2019-08-28 17:15] LABS: Basophils # (auto) 0.09 K/uL (0-0.2); Basophils % (auto) 0.8 %; Eosinophils # (auto) 0.55 K/uL (0-0.5); Eosinophils % (auto) 4.6 %; Immature Granulocytes # (auto) 0.07 K/uL (0.00-0.02); Immature Granulocytes % (auto) 0.6 %; Lymphocytes # (auto) 5.74 K/uL (1.2-3.4); Lymphocytes % (auto) 48.1 %; Monocytes # (auto) 0.78 K/uL (0.11-0.59); Monocytes % (auto) 6.5 %; Neutrophils # (auto) 4.71 K/uL (1.4-6.5); Neutrophils % (auto) 39.4 %
[2019-08-28] MEDS: LATANOPROST 0.005% OP SOLN 2.5 ML BTL OP SCH (20:57)
[2019-08-28] MEDS: ENOXAPARIN INJ 40 MG/0.4 ML SYR SQ SCH (20:58)
[2019-08-28] MEDS: EZETIMIBE 10 MG TABLET PO SCH (20:58)
[2019-08-28] MEDS: ASPIRIN 325 MG ECTAB PO SCH (20:58)
[2019-08-28] MEDS: ZOLPIDEM TARTRATE 5 MG TAB PO SCH (22:52)
[2019-08-29 07:35] LABS: BUN Creatinine Ratio 14.1 (10-20); Calcium 9.3 mg/dl (8.5-10.1); Est GFR (African American) 69.5; Potassium 3.6 mmol/L (3.5-5.1)
[2019-08-29] MEDS: allopurinoL 300 MG TAB PO SCH (09:10)
[2019-08-29] MEDS: PANTOprazole 40 MG TAB PO SCH (09:10)
[2019-08-29] MEDS: LACTOBACILLUS ACIDOPHILUS (FLORANEX) TAB PO SCH (09:10)
[2019-08-29] MEDS: CYANOCOBALAMIN 500 MCG TABLET (VITAMIN B-12) PO SCH (09:11)
[2019-08-29] MEDS: INSULIN GLARGINE SOLOSTAR 100 UNITS/ML 3 ML PEN SC SCH ×2 (09:11→20:49)
[2019-08-29] MEDS: INSULIN ASPART 100 UNITS/ML 3 ML PEN SC SCH ×4 (09:12→20:50)
[2019-08-29] MEDS: PREGABALIN 150 MG CAP PO SCH ×2 (09:14→20:05)
[2019-08-29] MEDS: GEMFIBROZIL 600 MG TAB PO SCH (12:32)
--- NOTE | 2019-08-29 13:22 | Hospitalist Progress Note ---
Date of Service August 29, 2019 Assessment & Plan (1) Generalized weakness: * Patient returns to the hospital with complaint of generalized weakness, mechanical fall x 2 and inability to get up. He is concerned about being at home and not being able to get up should he fall again. Also concerned about his who is elderly as well and unable to help him up. Curious to see if patient orthostatic despite high BP, as falls occurring after standing up/twisting motion * UA, CXR without evidence of infection * PT/OT assessment for rehab recommendations --> multiple conversations with patient, with ultimate decision to pursue inpatient treatment * Case management assessment for placement -- peer to peer completed today with patient unable to qualify for inpatient rehab at [facility] --> CM to send referrals to [facility] (2) Falls: * As above. (3) CAD, multiple vessel: * S/P CABG 2001. * Not on BB secondary to bradycardia * Continued home ASA * Is statin intolerant-is on Zetia and gemfibrozil -- continue * Patient denies CP/palpitations/SOB or syncope. (4) Diabetes mellitus: * Chronic. Stable. Patient previously on metformin but unable to tolera te. * Hold oral agents for now * Lantus 7u BID -- patient has been refusing insulin -- states he is very good about controlling his sugars at home with diet, although sugars were elevated during last admission as well * ISS * Continue Lyrica (5) Gastroesophageal reflux disease: * Chronic. Stable * Continue Protonix 40mg po daily (6) Hypercholesterolemia: * Chronic. Patient is statin intolerant * Continue Zetia and Gemfibrozil (7) Hypertension: * Chronic. Blood pressure well controlled. Patient had been off spironolactone for past four days. 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 Neil as outpatient for this -- patient gets blood work every three months and would not like further follow up with hairspring cutter at this time * WBCs elevated at 15.6 on admission--> 11.94k today (10) Lumbar spinal stenosis: * S/p multiple spinal surgeries, laminectomies -- 1984 at [facility], [address] [place] [facility] [place], [place] * Patient has intrathecal pain pump-- bupivacaine and catapress (11) DVT prophylaxis: * Lovenox 40mg SQ Dispo: ref placed to [facility] --> awaiting determination -- if patient does not get approved, will likely be discharged with home health Subjective Patient states he continues to be fatigued, no worse than yesterday. States he had been up with therapy without much difficulty, but still requires much assistance with ADLs. not currently at bedside. Patient agreeable to [facility] if insurance approves. No other complaints at this time Review of Systems Constitutional: no fever and no chills Eyes: no diplopia and no discharge Ear, Nose, Mouth, Throat: no sore throat and no dysphagia Respiratory: no cough and no dyspnea Cardiovascular: no chest pain, no palpitations and no edema Gastrointestinal: no abdominal pain, no nausea, no vomiting, no constipation and no diarrhea/loose stools Genitourinary: no dysuria and no urinary frequency Musculoskeletal: + back pain (chronic) and + joint pain (bilateral knees, chronic) Physical Exam Physical Exam: Constitutional WD/WN, vitals as above + obese; no acute distress Neck trachea midline, no thyromegaly Respiratory normal respiratory effort, lungs clear to auscultation no respiratory distress Cardiovascular Rate/Rhythm: regular rate and regular rhythm Heart Sounds: normal S1 and normal S2 Gastrointestinal (Abdomen) Inspection/Auscultation: normal bowel sounds Percussion/Palpation: abdomen soft; abdomen nontender, no guarding and no hepatosplenomegaly +pain pump present +umbilical hernia Skin warm and dry small, healing wound left pad of foot, plantar surface Psychiatric A+Ox3, euthymic affect Lymphatic no cervical or axillary lymphadenopathy Results & Data Vital Signs (Past 12 Hours) Vital Signs Temp Pulse Resp BP Pulse Ox 08/29/19 07:28 36.5 C 72 18 135/81 90 Laboratory Results 08/29/19 08/29/19 08/29/19 Range/Units 11:44 07:41 06:40 WBC (4.8-10.8) K/uL RBC (4.7-6.1) M/uL Hgb (14.0-18.0) g/dL Hct (42-52) % MCV (80-100) fL MCH (25-34) pg MCHC (32-36) g/dL RDW Std Deviation (36.4-46.3) fL RDW Coeff of Jennifer (11.5-14.5) % Plt Count (130-400) K/uL MPV (7.4-10.4) fL Immature Gran % (Auto) % Neut % (Auto) % Lymph % (Auto) % [place] % (Auto) % Eos % (Auto) % Baso % (Auto) % Immature Gran # (Auto) (0.00-0.02) K/uL Neut # (Auto) (1.4-6.5) K/uL Lymph # (Auto) (1.2-3.4) K/uL [place] # (Auto) (0.11-0.59) K/uL Eos # (Auto) (0-0.5) K/uL Baso # (Auto) (0-0.2) K/uL Sodium 139 (136-145) mmol/L Potassium 3.6 (3.5-5.1) mmol/L Chloride 108 H (98-107) mmol/L Carbon Dioxide 25 (21-32) mmol/L Anion Gap 6.0 (3-11) BUN 16 (7-18) mg/dl Creatinine 1.12 (0.6-1.4) mg/dl Est Cr Clr Drug Dosing 54.0 ml/min Est GFR ( Amer) 69.5 Est GFR (Non-Af Amer) 60.0 BUN/Creatinine Ratio 14.1 (10-20) Glucose 169 H (70-99) mg/dl POC Glucose 183 H 176 H (70-99) Calcium 9.3 (8.5-10.1) mg/dl Total Bilirubin (0.2-1) mg/dl AST (15-37) U/L ALT (12-78) U/L Alkaline Phosphatase (45-117) U/L Total Protein (6.4-8.2) gm/dl Albumin (3.4-5.0) gm/dl Globulin (2.5-4.0) gm/dl Albumin/Globulin Ratio (0.9-2) 08/28/19 08/28/19 08/28/19 Range/Units 20:53 16:27 16:27 WBC 11.94 H (4.8-10.8) K/uL RBC 4.44 L (4.7-6.1) M/uL Hgb 14.9 (14.0-18.0) g/dL Hct 45.4 (42-52) % MCV 102.3 H (80-100) fL MCH 33.6 (25-34) pg MCHC 32.8 (32-36) g/dL RDW Std Deviation 51.9 H (36.4-46.3) fL RDW Coeff of Jennifer 13.7 (11.5-14.5) % Plt Count 169 (130-400) K/uL MPV 11.3 H (7.4-10.4) fL Immature Gran % (Auto) 0.6 % Neut % (Auto) 39.4 % Lymph % (Auto) 48.1 % [place] % (Auto) 6.5 % Eos % (Auto) 4.6 % Baso % (Auto) 0.8 % Immature Gran # (Auto) 0.07 H (0.00-0.02) K/uL Neut # (Auto) 4.71 (1.4-6.5) K/uL Lymph # (Auto) 5.74 H (1.2-3.4) K/uL [place] # (Auto) 0.78 H (0.11-0.59) K/uL Eos # (Auto) 0.55 H (0-0.5) K/uL Baso # (Auto) 0.09 (0-0.2) K/uL Sodium 138 (136-145) mmol/L Potassium 3.9 (3.5-5.1) mmol/L Chloride 108 H (98-107) mmol/L Carbon Dioxide 26 (21-32) mmol/L Anion Gap 5.0 (3-11) BUN 17 (7-18) mg/dl Creatinine 1.12 (0.6-1.4) mg/dl Est Cr Clr Drug Dosing 54.0 ml/min Est GFR ( Amer) 69.5 Est GFR (Non-Af Amer) 60.0 BUN/Creatinine Ratio 15.2 (10-20) Glucose 109 H (70-99) mg/dl POC Glucose 177 H (70-99) Calcium 9.1 (8.5-10.1) mg/dl Total Bilirubin 0.8 (0.2-1) mg/dl AST 21 (15-37) U/L ALT 36 (12-78) U/L Alkaline Phosphatase 65 (45-117) U/L Total Protein 7.1 (6.4-8.2) gm/dl Albumin 3.4 (3.4-5.0) gm/dl Globulin 3.7 (2.5-4.0) gm/dl Albumin/Globulin Ratio 0.9 (0.9-2) 08/28/19 Range/Units 16:26 WBC (4.8-10.8) K/uL RBC (4.7-6.1) M/uL Hgb (14.0-18.0) g/dL Hct (42-52) % MCV (80-100) fL MCH (25-34) pg MCHC (32-36) g/dL RDW Std Deviation (36.4-46.3) fL RDW Coeff of Jennifer (11.5-14.5) % Plt Count (130-400) K/uL MPV (7.4-10.4) fL Immature Gran % (Auto) % Neut % (Auto) % Lymph % (Auto) % [place] % (Auto) % Eos % (Auto) % Baso % (Auto) % Immature Gran # (Auto) (0.00-0.02) K/uL Neut # (Auto) (1.4-6.5) K/uL Lymph # (Auto) (1.2-3.4) K/uL [place] # (Auto) (0.11-0.59) K/uL Eos # (Auto) (0-0.5) K/uL Baso # (Auto) (0-0.2) K/uL Sodium (136-145) mmol/L Potassium (3.5-5.1) mmol/L Chloride (98-107) mmol/L Carbon Dioxide (21-32) mmol/L Anion Gap (3-11) BUN (7-18) mg/dl Creatinine (0.6-1.4) mg/dl Est Cr Clr Drug Dosing ml/min Est GFR ( Amer) Est GFR (Non-Af Amer) BUN/Creatinine Ratio (10-20) Glucose (70-99) mg/dl POC Glucose 120 H (70-99) Calcium (8.5-10.1) mg/dl Total Bilirubin (0.2-1) mg/dl AST (15-37) U/L ALT (12-78) U/L Alkaline Phosphatase (45-117) U/L Total Protein (6.4-8.2) gm/dl Albumin (3.4-5.0) gm/dl Globulin (2.5-4.0) gm/dl Albumin/Globulin Ratio (0.9-2) PG Care Time/CCT Total # of Minutes Spent Total Time Spent with Patient: Total time spent is greater than 50% in coordination of care (as documented) at patient's floor/unit and/or counseling patient: (1) Diabetes mellitus Diabetes mellitus complication status: without complication Diabetes mellitus long-term insulin use: without long-term use Diabetes mellitus type: type 2 Qualified Code(s): E11.9 - Type 2 diabetes mellitus without complications (2) Gastroesophageal reflux disease Esophagitis presence: esophagitis presence not specified Qualified Code(s): K21.9 - Gastro-esophageal reflux disease without esophagitis (3) Hypertension Hypertension type: essential hypertension Qualified Code(s): I10 - Essential (primary) hypertension (4) Falls Encounter type: initial encounter Qualified Code(s): W19.XXXA - Unspecified fall, initial encounter
[2019-08-29] MEDS: ASPIRIN 325 MG ECTAB PO SCH (20:02)
[2019-08-29] MEDS: ENOXAPARIN INJ 40 MG/0.4 ML SYR SQ SCH (20:03)
[2019-08-29] MEDS: EZETIMIBE 10 MG TABLET PO SCH (20:04)
[2019-08-29] MEDS: LATANOPROST 0.005% OP SOLN 2.5 ML BTL OP SCH (20:04)
[2019-08-29] MEDS: ZOLPIDEM TARTRATE 5 MG TAB PO SCH (22:58)
[2019-08-30 06:13] LABS: Creatinine Clr Calc Pharmacy 50.8 ml/min; Est GFR (African American) 64.6; Est GFR (Non-African American) 55.8
[2019-08-30] MEDS: CYANOCOBALAMIN 500 MCG TABLET (VITAMIN B-12) PO SCH (08:29)
[2019-08-30] MEDS: allopurinoL 300 MG TAB PO SCH (08:29)
[2019-08-30] MEDS: LACTOBACILLUS ACIDOPHILUS (FLORANEX) TAB PO SCH (08:29)
[2019-08-30] MEDS: PANTOprazole 40 MG TAB PO SCH (08:30)
[2019-08-30] MEDS: INSULIN ASPART 100 UNITS/ML 3 ML PEN SC SCH ×4 (08:31→21:39)
[2019-08-30] MEDS: INSULIN GLARGINE SOLOSTAR 100 UNITS/ML 3 ML PEN SC SCH ×2 (08:32→21:38)
[2019-08-30] MEDS: PREGABALIN 150 MG CAP PO SCH ×2 (08:33→20:18)
--- NOTE | 2019-08-30 11:52 | Hospitalist Progress Note ---
Date of Service August 30, 2019 Assessment & Plan (1) Generalized weakness: * Improving-- patient walking halls, but with frequent stops and rest * Patient returns to the hospital with complaint of generalized weakness, mechanical fall x 2 and inability to get up. He is concerned about being at home and not being able to get up should he fall again. Also concerned about his who is elderly as well and unable to help him up. Curious to see if patient orthostatic despite high BP, as falls occurring after standing up/twisting motion. Orthostatic VS ordered. * UA, CXR without evidence of infection * Lyme pending -- EKG with evidence of 1st degree heart block, although this is not new. QTc has shorted to 456ms from 489ms on last admission. * PT/OT assessment for rehab recommendations --> multiple conversations with patient, with ultimate decision to pursue inpatient treatment. * Peer to peer done yesterday for [facility]. Denied. Referrals pending for both [facility] and [facility]. CM following -- no update currently. * May need home health if unsuccessful (2) Falls: * As above. (3) CAD, multiple vessel: * S/P CABG 2001. * Not on BB secondary to bradycardia * Continued home ASA * Is statin intolerant-is on Zetia and gemfibrozil -- continue * Patient denies CP/palpitations/SOB or syncope. (4) Diabetes mellitus: * Chronic. Stable. Patient previously on metformin but unable to tolerate. * Hold oral agents for now * Lantus 7u BID -- patient has been refusing insulin -- states he is very good about controlling his sugars at home with diet, although sugars were elevated during last admission as well * ISS * Continue Lyrica (5) Gastroesophageal reflux disease: * Chronic. Stable * Continue Protonix 40mg po daily (6) Hypercholesterolemia: * Chronic. Patient is statin intolerant * Continue Zetia and Gemfibrozil (7) Hypertension: * Chronic. Blood pressure well controlled. Patient had been off spironolactone for past four days. Did receive morning of 12/6 * Morning dose held as patient's BPs low/normal on admission * Currently 139/76 * Continue to monitor (8) Obstructive sleep apnea: * Patient with CPAP, although somewhat non-complaint up until recently * Patient without CPAP in room- will order CPAP inpatient if patient unable to bring home device --> patient declined (9) Leukocytosis: * CLL - chronic --> dating back to 2013 with associated elevated lymphocytes and presence of smudge cells * Previous recommendations for outpatient follow-up with public health teacher * Follows with Dr. Neil as outpatient for this -- patient gets blood work every three months and would not like further follow up with public health teacher at this time * WBCs elevated at 15.6 on admission--> 11.94k on last check (10) Lumbar spinal stenosis: * S/p multiple spinal surgeries, laminectomies -- 1984 at [facility], [address] Carter at [facility], 2009 in [place], [place] * Patient has intrathecal pain pump-- bupivacaine and catapress (11) CKD (chronic kidney disease): * Stage 3. CrCl at baseline <60. Currently 50.8 * Creat currently 1.19 (12) DVT prophylaxis: * Lovenox 40mg SQ Dispo: ref placed to [facility] --> awaiting determination -- if patient does not get approved, will likely be discharged with home health Subjective Patient evaluated this morning. He states he has been up walking the halls with his but they both state frustration regarding no one else besides therapy assisting him with walking. states that "even last time we were here we didn't see them much". Explained that therapy for initial evaluations and how repeat therapy occurs while inpatient and encouraged patient to take several trips with around the halls and with his son at night to work on improving his strength. Patient states he was able to walk the entire second floor with a walker, but stated that he required multiple stops to sit in the wheelchair to rest. States he moved his bowel yesterday and was giving patient dried apricots that he takes at home to keep his bowels regular. They are concerned about the etiology of his weakness/falls, and discussion was had regarding possible micturition syncope, but they did not seem overly receptive to this as the cause. Discussed possible low B12 last visit and that it takes time for stores to build up. Compounded with recent hospital stay and less activity than he had previously been doing, is likely the cause of current weakness. Still would like inpatient rehab. Discussed insurance denial for [facility] but that there are referrals placed for both [facility] and [facility], but if they are unsuccessful that we may need to have home health set up. Patient and state they had previously used [facility] and were dissatisfied with their care. Review of Systems Review of Systems: no fever and no chills no diplopia and no discharge no sore throat and no dysphagia no cough and no dyspnea no chest pain, no palpitations and no edema no abdominal pain, no nausea, no vomiting, no constipation and no diarrhea/loose stools no dysuria and no urinary frequency + back pain (chronic) and + joint pain (bilateral knees, chronic) Physical Exam Physical Exam: Constitutional WD/WN, vitals as above, + obese; no acute distress Neck trachea midline, no thyromegaly Respiratory normal respiratory effort, lungs clear to auscultation no respiratory distress Cardiovascular Rate/Rhythm: regular rate and regular rhythm Heart Sounds: normal S1 and normal S2 Gastrointestinal (Abdomen) Inspection/Auscultation: normal bowel sounds Percussion/Palpation: abdomen soft; abdomen nontender, no guarding and no hepatosplenomegaly +pain pump present +umbilical hernia Skin warm and dry small, healing wound left pad of foot, plantar surface MSK no cyanosis or clubbing, extremities motor strength 5/5 Psychiatric A+Ox3, euthymic affect Lymphatic no cervical or axillary lymphadenopathy Results & Data Vital Signs (Past 12 Hours) Vital Signs Temp Pulse Resp BP Pulse Ox 08/30/19 08:01 36.8 C 65 18 139/76 91 Laboratory Results 08/30/19 08/30/19 08/29/19 Range/Units 07:42 05:18 20:30 Creatinine 1.19 (0.6-1.4) mg/dl Est Cr Clr Drug Dosing 50.8 ml/min Est GFR ( Amer) 64.6 Est GFR (Non-Af Amer) 55.8 POC Glucose 147 H 192 H (70-99) 08/29/19 08/29/19 Range/Units 16:31 11:44 Creatinine (0.6-1.4) mg/dl Est Cr Clr Drug Dosing ml/min Est GFR ( Amer) Est GFR (Non-Af Amer) POC Glucose 154 H 183 H (70-99) PG Care Time/CCT Total # of Minutes Spent Total Time Spent with Patient: Total time spent is greater than 50% in coordination of care (as documented) at patient's floor/unit and/or counseling patient: (1) Diabetes mellitus Diabetes mellitus complication status: without complication Diabetes mellitus retirement insulin use: without retirement use Diabetes mellitus type: type 2 Qualified Code(s): E11.9 - Type 2 diabetes mellitus without complications (2) Gastroesophageal reflux disease Esophagitis presence: esophagitis presence not specified Qualified Code(s): K21.9 - Gastro-esophageal reflux disease without esophagitis (3) Hypertension Hypertension type: essential hypertension Qualified Code(s): I10 - Essential (primary) hypertension (4) Falls Encounter type: initial encounter Qualified Code(s): W19.XXXA - Unspecified fall, initial encounter
[2019-08-30] MEDS: GEMFIBROZIL 600 MG TAB PO SCH (12:09)
[2019-08-30 14:51] LABS: Lyme Ab IgG w/WB Rflx Negative (Negative); Lyme Ab IgM w/WB Rflx Negative (Negative)
[2019-08-30] MEDS: ASPIRIN 325 MG ECTAB PO SCH (20:17)
[2019-08-30] MEDS: EZETIMIBE 10 MG TABLET PO SCH (20:17)
[2019-08-30] MEDS: ENOXAPARIN INJ 40 MG/0.4 ML SYR SQ SCH (20:18)
[2019-08-30] MEDS: LATANOPROST 0.005% OP SOLN 2.5 ML BTL OP SCH (20:18)
[2019-08-30] MEDS: ZOLPIDEM TARTRATE 5 MG TAB PO SCH (22:45)
[2019-08-31] MEDS: allopurinoL 300 MG TAB PO SCH (08:40)
[2019-08-31] MEDS: PREGABALIN 150 MG CAP PO SCH (08:40)
[2019-08-31] MEDS: CYANOCOBALAMIN 500 MCG TABLET (VITAMIN B-12) PO SCH (08:40)
[2019-08-31] MEDS: LACTOBACILLUS ACIDOPHILUS (FLORANEX) TAB PO SCH (08:41)
[2019-08-31] MEDS: INSULIN ASPART 100 UNITS/ML 3 ML PEN SC SCH ×2 (08:41→12:16)
[2019-08-31] MEDS: PANTOprazole 40 MG TAB PO SCH (08:41)
[2019-08-31] MEDS: INSULIN GLARGINE SOLOSTAR 100 UNITS/ML 3 ML PEN SC SCH (08:42)
[2019-08-31] MEDS: GEMFIBROZIL 600 MG TAB PO SCH (11:41)
--- NOTE | 2019-08-31 16:16 | Discharge Summary ---
Date of Service August 31, 2019 Admission HPI Per Admitting Provider Basilio Wiggins is a pleasant 84yo C male recently admitted to [facility] on 08/16/19 with abdominal pain, nausea and vomiting. Patient found to have a small bowel obstruction most likely secondary to adhesions from prior surgical intervention. General Surgery was consulted and the patient was managed conservatively with resolution of symptoms and normal BMs in 3 days. He was discharged home in stable condition. He feels that he has been doing fairly well at home. He attempted to use his recumbent bike on one occasion and has been trying to walk more. He does feel somewhat weak. On 08/25/19 he was using his walker and sustained a mechanical fall in the bathroom. He had a difficult time getting up. He lives with his who was unable to assist him up so he contacted his grandson. Later in the evening he had a second fall and again had to contact his grandson to help him up due to weakness. He feels that his legs went out from under him. Denies dizziness/CP/palpitations/syncope or head trauma. He was discussing with his family and is requesting placement in a rehabilitation facility. ER Course: Tylenol, NSS Principal Diagnosis Ambulatory Dysfunction Discharge Exam Constitutional WD/WN, vitals as above Eyes + anicteric sclerae ENMT Ears: no hearing impairment Neck trachea midline Respiratory normal respiratory effort, lungs clear to auscultation Cardiovascular Rate/Rhythm: regular rate and regular rhythm Extremities: + edema (trace pitting in b/l ankles) Gastrointestinal (Abdomen) Inspection/Auscultation: normal bowel sounds Percussion/Palpation: abdomen soft; abdomen nontender Musculoskeletal Head/Neck/Chest: normocephalic and head atraumatic Extremities: no cyanosis and no clubbing Skin no rashes, warm and dry Neurologic moves all extremities Psychiatric A+Ox3, euthymic affect Discharge Data Allergies Allergy/AdvReac Type Severity Reaction Status Date / Time hydrochlorothiazide Allergy Severe Hives Verified 08/27/19 15:10 Iodinated Contrast Media Allergy Severe Convulsions Verified 08/27/19 15:10 adhesive Allergy Intermediate RASH;PULLS Verified 08/27/19 15:10 SKIN OFF levofloxacin Allergy Mild HIVES, Verified 08/27/19 15:10 PRURITIS NSAIDS (Non-Steroidal Allergy Mild Elevated BP Verified 08/27/19 15:10 Anti-Inflamma amiodarone Allergy Unknown RASH Verified 08/27/19 15:10 cephalexin Allergy Unknown AFTER 14 Verified 08/27/19 15:10 DAYS-DEVELOPED GASTRITIS-2017 Egefkib-Zag-Sya Reductase Allergy Unknown Unknown Verified 08/27/19 15:10 Inhibitor terazosin [From Hytrin] Allergy Unknown Unknown Verified 08/27/19 15:10 Cephalosporins AdvReac Intermediate nausea Verified 08/27/19 15:10 after repeated dose nifedipine AdvReac Intermediate Sick to Verified 08/27/19 15:10 stomach atorvastatin AdvReac Unknown MUSCLE Verified 08/27/19 15:10 ACHES doxycycline AdvReac Unknown gi upset Verified 08/27/19 15:10 Consultations 08/27/19 15:39 ED Decision to Admit Stat 08/27/19 19:26 Consult Case Management - Discharge Planning Routine Hospital Course (1) Generalized weakness: - Improving - Has had a couple mechanical falls with difficulty getting up - falls seem to occur with standing up - possibility of a component of orthostasis with standing up and was recently discontinued off Spironolactone to see if this helps; maybe component of his neuropathy playing a role? Since this seems to happen more commonly at night maybe the Vistaril/Ambien maybe playing a role if he is more sleepy when trying to get up to go to the bathroom? - Recommend using bedside urinal for more emergent needs for urination to prevent falls - No signs of infection noted; Lyme negative - Has improved with therapy - planning on returning home with home services (2) Falls: - As above (3) CAD, multiple vessel: - S/P CABG 2001 - Continue ASA, Zetia, and Gemfibrozil - intolerant to statins/BB therapy (4) Diabetes mellitus: - STABLE - Continue Glipizide 10 mg BID and Lyrica 150 mg BID (5) Gastroesophageal reflux disease: - STABLE - Protonix 40 mg daily (6) Hypercholesterolemia: - Continue Zetia and Gemfibrozil (7) Hypertension: - STABLE - Has been instructed to stop Spironolactone - can F/U and assess for resumption (8) Obstructive sleep apnea: - Continue CPAP (9) Leukocytosis: - In setting of CLL - Follows with Dr. Neil with routine lab work for monitoring (10) Lumbar spinal stenosis: - S/P multiple spinal surgeries/laminectomies and S/P intrathecal pain pump with plans for exchange on 09/02 with Pain Management/Dr. Agosto (11) CKD (chronic kidney disease): - Stage III - Stable/Baseline Total Time Total Time Spent Total Time Spent (In Minutes): Greater than 30 minutes Discharge Plan Discharge Items Patient Disposition: Home - Home Health Services Reason For Visit: FALL, AMBULATORY DYSFUNCTION Discharge Diagnosis: Ambulatory Dysfunction; Falls Activity: Resume your previous activity Non-emergency contact: Primary Care Provider Call non-emergency contact if: you have any medication questions, your symptoms worsen and you have a fever Follow-up/Referrals: Miles Neil MD [Primary Care Provider] - Diet: Carb Consistent or DM2 and Heart Healthy Addtl Attending Provider Instructions: Weakness/Falls: - This is possibly the result of a couple different things. You were taken off your Spironolactone a few days ago to try and see if this will help prevent lower blood pressures/falls. Given your neuropathy in your feet this can cause some sensation difficulties that can contribute to falls for some people. As well, it is possible you are dealing with lower blood pressures as your are trying to stand up. May be best to make sure you sit at the side of the bed a few minutes prior to trying to stand and walk. As well, once standing, stay still for a couple minutes to make sure you are not dizzy or unsteady before walking. Since you issues seem to happen more at night because of needing to urinate, having a bedside urinal may help prevent falls by allowing you to go to the bathroom quicker. You can even use these for those more emergent needs to u rinate. - Also, given your symptoms can be worse at night be mindful that Vistaril and Ambien are used to help with sleep so they can cause you to be a little more sleepy when you do need to get up to urinate. Heart Health: - Continue your aspirin and cholesterol controlling medications - Continue to hold your spironolactone as discussed previously with your family doctor Diabetes: - Continue Glipizide as previously prescribed Pending Studies at Discharge: No Stand-Alone Forms: Smoking Cessation Medications and DC Order Prescriptions: Continued aspirin 325 mg tablet 325 mg PO QPM RF: 0 acetaminophen 650 mg tablet extended release 1,300 mg PO Q8H PRN (Reason: Fever Or Pain) RF: 0 allopurinol [Zyloprim] 300 mg tablet 300 mg PO QAM RF: 0 lactobacillus combination no.8 [Adult Probiotic] 3 billion cell capsule 3,000 mmu cells PO DAILY RF: 0 potassium chloride 10 mEq tablet extended release 10 meq PO DAILY PRN (Reason: leg cramps) RF: 0 latanoprost 0.005 % drops 1 drops OP QPM RF: 0 bupivacaine 0.25 % (2.5 mg/mL) solution See Rx Instructions .ROUTE .COMPLEX Qty: 50 RF: 0 pantoprazole [Protonix] 40 mg tablet,delayed release (DR/EC) 40 mg PO DAILY Qty: 180 RF: 3 pregabalin [Lyrica] 150 mg capsule 150 mg PO BID Qty: 180 RF: 1 zolpidem [Ambien] 5 mg tablet 5 mg PO HS Qty: 90 RF: 0 glipizide 10 mg tablet extended release 24hr 10 mg PO BID Qty: 180 RF: 3 gemfibrozil [Lopid] 600 mg tablet 300 mg PO DAILY RF: 0 cyanocobalamin (vitamin B-12) 1,000 mcg capsule 2,000 mcg PO DAILY 30 Days Qty: 60 RF: 0 hydroxyzine pamoate [Vistaril] 25 mg Capsule 25 mg PO HS PRN (Reason: Sleep) RF: 0 ezetimibe [Zetia] 10 mg tablet 10 mg PO QPM RF: 0 guaifenesin [Mucinex] 600 mg tablet extended release 12hr 1,200 mg PO Q12 PRN (Reason: Congestion) RF: 0 Discontinued spironolactone [Aldactone] 50 mg tablet 50 mg PO DAILY Qty: 90 RF: 3 Discharge Orders: Discharge Order (Routine); Ordered 08/31/19 Ordered By: Argenis Nam Admission Data Admit Date/Time: 08/29/19 11:56 Attending Provider: Eitan Quintana Admit Provider: June Vu Primary Care Provider: Miles Neil Other Providers: June Vu ; [facility] ; [facility] ; [facility] Other Interventions: Discharge Summary Assessment (RN) Last Done: 08/31/19 14:05 DC Date/Time DO NOT enter until pt leaves facility: 08/31/19 14:40 Supervising Physician Co-Signing Physician Notes Attending note: patient seen and examined with Argenis Nam PA-C. I agree with her discharge summary. I personally reviewed the labs and imaging findings. patient feeling better, stronger, believes he will be fine at home eating well, vitals and labs stable discussed with Dr. Neil, his PCP, who says he is at baseline - Generalized weakness: improved, can go home today with home health chronic medical conditions: all stable
== END 2019-08-31 14:40 | disposition home health service (06) | DRG 74 ==
LOC: ED 12:37 → 2N 12:37 → SUATTDRO 17:11 → 2N 18:50

== ENCOUNTER 2020-03-11 09:25 | Observation (INO) ==
[2020-03-11] MEDS ORDERED: AZTREONAM 2,000 MG in DEXTROSE 5% 100 ML IV STA (10:00)
[2020-03-11] MEDS ORDERED: DAPTOmycin 500 MG in SYRINGE 0 ML IV ONE (10:00)
[2020-03-11] MEDS ORDERED: DAPTOMYCIN CONSULT ACTIVE PRN ×2 (10:00→13:08)
[2020-03-11 10:10] LABS: Hematocrit (blood only) 44.9 % (42-52); Hemoglobin 14.8 g/dL (14.0-18.0); Mean Corpuscular Hemoglobin 32.2 pg (25-34); Mean Corpuscular Volume 97.8 fL (80-100); Mean Platelet Volume 11.9 fL (7.4-10.4); Platelet Count 157 K/uL (130-400); RDW Coefficient of Variation 14.1 % (11.5-14.5); RDW Standard Deviation 50.1 fL (36.4-46.3); Red Blood Count 4.59 M/uL (4.7-6.1); White Blood Count 13.27 K/uL (4.8-10.8)
[2020-03-11 10:34] LABS: Albumin Level 3.5 gm/dl (3.4-5.0); BUN Creatinine Ratio 14.3 (10-20); Calcium 8.6 mg/dl (8.5-10.1); Creatinine Clr Calc Pharmacy 53.6 ml/min; Est GFR (African American) 68.1; Est GFR (Non-African American) 58.7; Potassium 3.6 mmol/L (3.5-5.1)
[2020-03-11 10:36] LABS: Bilirubin,Total 0.5 mg/dl (0.2-1); Globulin 3.5 gm/dl (2.5-4.0)
--- NOTE | 2020-03-11 10:39 | Emergency Department Note ---
Impression & Plan Cellulitis and abscess of foot ED Provider Note NAME: SIRISHA RIVAS AGE: 84 SEX: M ARRIVES VIA: Walk-In INFORMANT: [Patient] ED PROVIDER(S): Edwin Vaughan MD CHIEF COMPLAINT: Foot infection PLAN: Disposition: Admitted Condition: [Good] MEDICAL DECISION MAKING: Patient presented with a diabetic foot ulcer with associated cellulitis. There was purulent drainage from the area under the first MTP, plantar surface. I did culture the wound. The patient's blood work is concerning for a leukocytosis. Mild elevation of inflammatory markers. X-ray imaging did not reveal obvious evidence of osteomyelitis. He was treated with daptomycin and aztreonam due to his multiple allergies. I discussed further management and treatment in the hospital with him and his . The patient and were in agreement. I discussed the case with the [facility] service, Dr. More. The patient was evaluated in the ER and admitted for further management. Triage Nursing notes reviewed and agree them. [Additional history obtained from] patient's [Prior medical records reviewed] Vital Signs: reviewed and remarkable for hypertension Differential diagnosis: Cellulitis, abscess, MRSA infection, DVT, necrotizing fasciitis, dermatitis, drug eruption, allergic reaction, as well as other pathologies. ER treatment provided: IV daptomycin IV aztreonam Diagnostics interpreted by me: ECG:Rate: 77 Rhythm: Sinus rhythm with first-degree AV block [place]: Left axis deviation QRS: Normal ST segements: No elevation or depression Other: PVCs present. Poor R wave progression. Cardiac Monitoring: Cardiac monitoring ordered by me: The patient was placed on continuous cardiac monitoring and observed. It revealed a normal sinus rhythm at 78 beats per minute without ectopy or evidence of dysrhythmia. Laboratory studies: [See below] mild leukocytosis on CBC. Imaging studies: X-ray imaging was negative for findings of fracture, dislocation or osteomyelitis. Consultation(s): [facility] HPI: The patient is a 84 year old male who presents to the Emergency Room with complaints of left foot infection. This started last night and is progressing. The patient also notes the following associated symptoms, redness and swelling of the left lower leg to the mid swift. The patient has taken no medication relieving factors. Current pain is rated as 3/10. Patient has had a callus on the plantar surface under the first MTP for some time. He noted some discomfort yesterday with walking which was concerning as he has a neuropathy and cannot feel his feet. He went to bed early and his did not check his foot as she usually does at night. When she woke up this morning and saw the redness which was not there the day before she was very concerned about infection. She also noted there was some fluid and some scant drainage from the callused/ulcer area. Patient does note some associated nausea. Pt denies LOC, headache, fevers, chills, diaphoresis, visual changes, neck pain, chest pain, breathing difficulties, vomiting, abdominal pain, back pain, melena, hematochezia, urinary symptoms, weakness, lymphadenopathy, rash, or other complaints. ROS: See above HPI for pertinent positives & negatives. A total of [10] systems reviewed and were otherwise negative. PAST MEDICAL HISTORY:[See Below] diabetes PAST SURGICAL HISTORY:[See Below] FAMILY HISTORY:[See Below] SOCIAL HISTORY:[See Below] HOME MEDICATIONS:[See Below] ALLERGIES:[See Below] VITALS:[See Below] PHYSICAL EXAMINATION: GENERAL: Awake, alert, well-appearing, in no distress HENT: Normocephalic, atraumatic. Oropharynx unremarkable. EYES: Normal conjunctiva. Sclera non-icteric. NECK: Inspection normal. Non-tender. Supple. No nuchal rigidity. FROM. No masses. RESPIRATORY: Clear to auscultation. No wheezes. No rales. Normal respiratory effort. CARDIAC: Normal rate. Normal rhythm. No murmurs. No rubs. Extremities warm and well perfused. Pulses equal. No JVD. GI: Soft, non-distended. No tenderness to palpation. No rebound or guarding. No masses. RECTAL: Deferred. MUSCULOSKELETAL: Atraumatic. Chest examination reveals no tenderness. The back is symmetrical on inspection without obvious abnormality. There is no CVA tenderness to palpation. No joint edema. LOWER EXTREMITIES: Right lower extremity is atraumatic and nonerythematous. Examination of the left lower extremity reveals some mild erythema to the mid swift with 1+ edema extending distally. There is erythema over the medial aspect of the left foot. There is a large callus area under the first MTP joint plantar surface. There is fluctuance here and there is cloudy fluid noted under the callused skin. NEURO: Normal sensorium. No sensory or motor deficits noted. SKIN: No rash or jaundice noted. ED COURSE: [Critical Care:] [None] Edwin Vaughan MD Past Med/Surg History Social History Preferred Language: Belarusian Communication Ability: Effective Visual Impairment: Limited Hearing Ability: Normal [employer]ic Required: No Beliefs That Will Affect Care: None marital status: Current Living Situation: Spouse current occupational status: retired Feels Safe at Home: Yes Smoking Status: Former smoker Second Hand Exposure: No ; Hx Alcohol Use: Yes Alcohol type: wine Hx Substance Use: No Allergies Allergies Allergy/AdvReac Type Severity Reaction Status Date / Time hydrochlorothiazide Allergy Severe Hives Verified 03/11/20 10:26 Iodinated Contrast Media Allergy Severe Convulsions Verified 03/11/20 10:26 adhesive Allergy Intermediate RASH;PULLS Verified 03/11/20 10:26 SKIN OFF levofloxacin Allergy Mild HIVES, Verified 03/11/20 10:26 PRURITIS NSAIDS (Non-Steroidal Allergy Mild Elevated BP Verified 03/11/20 10:26 Anti-Inflamma amiodarone Allergy Unknown RASH Verified 03/11/20 10:26 cephalexin Allergy Unknown AFTER 14 Verified 03/11/20 10:26 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 Tqkanld-[id number]-Xys Reductase Allergy Unknown Unknown Verified 03/11/20 10:26 Inhibitor terazosin [From Hytrin] Allergy Unknown Unknown Verified 03/11/20 10:26 Cephalosporins AdvReac Intermediate nausea Verified 03/11/20 10:26 after repeated dose nifedipine AdvReac Intermediate Sick to Verified 03/11/20 10:26 stomach atorvastatin AdvReac Unknown MUSCLE Verified 03/11/20 10:26 ACHES doxycycline AdvReac Unknown gi upset Verified 03/11/20 10:26 Home Meds Home Medications Medication Instructions Recorded Confirmed acetaminophen 650 mg 1,300 mg PO Q8H PRN tab 07/01/18 03/11/20 tablet,extended release allopurinol 300 mg tablet 300 mg PO QAM 07/01/18 03/11/20 latanoprost 0.005 % eye drops 1 drops OP QPM 09/11/18 03/11/20 aspirin 81 mg tablet,delayed 81 mg PO DAILY 09/09/19 03/11/20 release gemfibrozil [Lopid] 300 mg PO DAILY 10/30/19 03/11/20 Pain Pump See Rx Instructions .ROUTE .COMPLEX 11/09/19 03/11/20 Previous Rx's Medication Instructions Recorded bupivacaine 0.25 % (2.5 mg/mL) See Rx Instructions .ROUTE 05/18/19 injection solution .COMPLEX #50 ml pantoprazole 40 mg tablet,delayed 40 mg PO DAILY #180 tab 06/26/19 release cyanocobalamin (vitamin B-12) 2,000 mcg PO DAILY 30 Days #90 cap 09/09/19 1,000 mcg capsule glipizide 10 mg tablet, extended 10 mg PO BID #180 tab 11/02/19 release 24 hr ezetimibe 10 mg tablet 10 mg PO QPM #90 tab 02/04/20 pregabalin 150 mg capsule 150 mg PO BID #180 cap 02/04/20 zolpidem 10 mg tablet 10 mg PO HS #30 tab 02/09/20 Results & Data (ED) Vital Signs Vital Signs - 24 hr 03/11/20 09:39 03/11/20 10:13 03/11/20 10:28 Temperature 36.6 C Temperature Source Oral Pulse Rate 68 Pulse Rate [Left Finger] 73 Respiratory Rate 18 18 Respiratory Effort / Characteristics Non-Labored Spontaneous Respiratory Depth Normal Respiratory Pattern Regular Blood Pressure 176/89 H Blood Pressure [Left Arm] 206/104 H Blood Pressure Mean 118 Blood Pressure Mean [Left Arm] 138 Blood Pressure Position Sitting Pulse Oximetry 95 94 96 Oxygen Delivery Method Room Air Room Air Room Air Sepsis Recent Fever Within 48 Hours No Sepsis New/Unexplained Change in Mental Status No Sepsis Action Taken by Nursing No Action Required 03/11/20 12:08 Temperature Temperature Source Pulse Rate Pulse Rate [Left Finger] 103 H Respiratory Rate 20 Respiratory Effort / Characteristics Respiratory Depth Respiratory Pattern Blood Pressure Blood Pressure [Left Arm] 168/78 H Blood Pressure Mean Blood Pressure Mean [Left Arm] 108 Blood Pressure Position Pulse Oximetry 94 Oxygen Delivery Method Room Air Sepsis Recent Fever Within 48 Hours Sepsis New/Unexplained Change in Mental Status Sepsis Action Taken by Nursing Laboratory Data Result diagrams: 03/11/20 09:56 03/11/20 09:56 Lab Results 03/11/20 03/11/20 03/11/20 Range/Units 09:56 09:56 09:56 WBC 13.27 H (4.8-10.8) K/uL RBC 4.59 L (4.7-6.1) M/uL Hgb 14.8 (14.0-18.0) g/dL Hct 44.9 (42-52) % MCV 97.8 (80-100) fL MCH 32.2 (25-34) pg MCHC 33.0 (32-36) g/dL RDW Std Deviation 50.1 H (36.4-46.3) fL RDW Coeff of Jennifer 14.1 (11.5-14.5) % Plt Count 157 (130-400) K/uL MPV 11.9 H (7.4-10.4) fL Immature Gran % (Auto) 0.4 % Neut % (Auto) 50.0 % Lymph % (Auto) 40.5 % [place] % (Auto) 5.0 % Eos % (Auto) 3.5 % Baso % (Auto) 0.6 % Immature Gran # (Auto) 0.05 H (0.00-0.02) K/uL Neut # (Auto) 6.63 H (1.4-6.5) K/uL Lymph # (Auto) 5.37 H (1.2-3.4) K/uL [place] # (Auto) 0.67 H (0.11-0.59) K/uL Eos # (Auto) 0.47 (0-0.5) K/uL Baso # (Auto) 0.08 (0-0.2) K/uL Blood Smear Review ESR (0-14) mm/hr Sodium 141 (136-145) mmol/L Potassium 3.6 (3.5-5.1) mmol/L Chloride 108 H (98-107) mmol/L Carbon Dioxide 26 (21-32) mmol/L Anion Gap 7.0 (3-11) BUN 16 (7-18) mg/dl Creatinine 1.14 (0.6-1.4) mg/dl Est Cr Clr Drug Dosing 53.6 ml/min Est GFR ( Amer) 68.1 Est GFR (Non-Af Amer) 58.7 BUN/Creatinine Ratio 14.3 (10-20) Glucose 160 H (70-99) mg/dl Lactate 1.5 (0.4-2.0) mmol/L Calcium 8.6 (8.5-10.1) mg/dl Total Bilirubin 0.5 (0.2-1) mg/dl AST 16 (15-37) U/L ALT 34 (12-78) U/L Alkaline Phosphatase 67 (45-117) U/L C-Reactive Protein (0-0.29) mg/dl Total Protein 7.0 (6.4-8.2) gm/dl Albumin 3.5 (3.4-5.0) gm/dl Globulin 3.5 (2.5-4.0) gm/dl Albumin/Globulin Ratio 1.0 (0.9-2) Urine Color Urine Appearance (Clear) Urine pH (4.5-7.5) Ur Specific [place] (1.000-1.030) Urine Protein (Negative) Urine Glucose (UA) (Negative) Urine Ketones (Negative) Urine Blood (Negative) Urine Nitrite (Negative) Urine Bilirubin (Negative) Urine Urobilinogen (Negative) Ur Leukocyte Esterase (Negative) Urine WBC (Auto) (0-5) /hpf Urine RBC (Auto) (0-4) /hpf U Hyaline Cast (Auto) (0-5) /lpf U Epithel Cells (Auto) (0-5) /lpf Urine Bacteria (Auto) (Negative) 03/11/20 03/11/20 03/11/20 Range/Units 09:56 09:56 11:43 WBC (4.8-10.8) K/uL RBC (4.7-6.1) M/uL Hgb (14.0-18.0) g/dL Hct (42-52) % MCV (80-100) fL MCH (25-34) pg MCHC (32-36) g/dL RDW Std Deviation (36.4-46.3) fL RDW Coeff of Jennifer (11.5-14.5) % Plt Count (130-400) K/uL MPV (7.4-10.4) fL Immature Gran % (Auto) % Neut % (Auto) % Lymph % (Auto) % [place] % (Auto) % Eos % (Auto) % Baso % (Auto) % Immature Gran # (Auto) (0.00-0.02) K/uL Neut # (Auto) (1.4-6.5) K/uL Lymph # (Auto) (1.2-3.4) K/uL [place] # (Auto) (0.11-0.59) K/uL Eos # (Auto) (0-0.5) K/uL Baso # (Auto) (0-0.2) K/uL Blood Smear Review ESR 3 (0-14) mm/hr Sodium (136-145) mmol/L Potassium (3.5-5.1) mmol/L Chloride (98-107) mmol/L Carbon Dioxide (21-32) mmol/L Anion Gap (3-11) BUN (7-18) mg/dl Creatinine (0.6-1.4) mg/dl Est Cr Clr Drug Dosing ml/min Est GFR ( Amer) Est GFR (Non-Af Amer) BUN/Creatinine Ratio (10-20) Glucose (70-99) mg/dl Lactate (0.4-2.0) mmol/L Calcium (8.5-10.1) mg/dl Total Bilirubin (0.2-1) mg/dl AST (15-37) U/L ALT (12-78) U/L Alkaline Phosphatase (45-117) U/L C-Reactive Protein 0.58 H (0-0.29) mg/dl Total Protein (6.4-8.2) gm/dl Albumin (3.4-5.0) gm/dl Globulin (2.5-4.0) gm/dl Albumin/Globulin Ratio (0.9-2) Urine Color Yellow Urine Appearance Clear (Clear) Urine pH 5.0 (4.5-7.5) Ur Specific [place] 1.017 (1.000-1.030) Urine Protein 2+ H (Negative) Urine Glucose (UA) Negative (Negative) Urine Ketones Negative (Negative) Urine Blood Negative (Negative) Urine Nitrite Negative (Negative) Urine Bilirubin Negative (Negative) Urine Urobilinogen Negative (Negative) Ur Leukocyte Esterase Negative (Negative) Urine WBC (Auto) 1-5 (0-5) /hpf Urine RBC (Auto) 0-4 (0-4) /hpf U Hyaline Cast (Auto) 1-5 (0-5) /lpf U Epithel Cells (Auto) 0-5 (0-5) /lpf Urine Bacteria (Auto) Negative (Negative) Administered Medications Discontinued Medications Daptomycin 500 mg/ Syringe 10 mls @ 5 mls/min IV NOW ONE; Protocol Stop: 03/11/20 10:01 Last Admin: 03/11/20 10:26 Dose: 5 mls/min Documented by: [id number] Aztreonam 2,000 mg/ Dextrose 110 mls @ 100 mls/hr IV NOW STA; Protocol Stop: 03/11/20 11:05 Last Infusion: 03/11/20 11:33 Dose: 0 mls/hr Documented by: [id number] Admin: 03/11/20 10:26 Dose: 100 mls/hr Documented by: [id number] Discharge Plan Visit Data *Final* Discharge Date/Time: 03/11/20 15:25 Chief Complaint: Infection, Wound Stated Complaint: WOUND ON BOTTOM OF FOOT, DIABETIC ED Provider: Edwin Vaughan Discharge Problem: Cellulitis and abscess of foot Patient Disposition: Admitted As Inpatient Discharge Instructions Interventions: ED Discharge Assessment Last Done: 03/11/20 15:25
--- NOTE | 2020-03-11 11:04 | XRay Report ---
XR foot LT min 3V routine CLINICAL HISTORY: infected diabetic ulcer, plantar, 1st MTP COMPARISON: 01/05/2020 DISCUSSION: Postoperative changes involving effusion of the tarsal metatarsal joints is again noted. Hardware is intact compared to the prior study. Fracture of one distal transverse screw which is cons idered pre-existing. Moderate generalized soft tissue edematous change. 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 No well-define d destructive process. IMPRESSION: Generalized soft tissue edema. Generalized degenerative and postoperative change. No evid ence for osteomyelitis ACT 112: Negative or not required by law. The above report was generated using voice recognition software. It may contain grammatical, syntax or spelling errors. Electronically signed by: Trace Mares M.D. 03/11/2020 11:03 AM
[2020-03-11 11:33] LABS: Basophils # (auto) 0.08 K/uL (0-0.2); Basophils % (auto) 0.6 %; Eosinophils # (auto) 0.47 K/uL (0-0.5); Eosinophils % (auto) 3.5 %; Immature Granulocytes # (auto) 0.05 K/uL (0.00-0.02); Immature Granulocytes % (auto) 0.4 %; Lymphocytes # (auto) 5.37 K/uL (1.2-3.4); Lymphocytes % (auto) 40.5 %; Monocytes # (auto) 0.67 K/uL (0.11-0.59); Neutrophils # (auto) 6.63 K/uL (1.4-6.5)
[2020-03-11 11:54] LABS: Appearance Urine Clear (Clear); Bacteria Urine Automated Negative (Negative); Bilirubin Urine Negative (Negative); Blood Urine Negative (Negative); Color Urine Yellow; Epithelial Cell Urine Auto 0-5 /lpf (0-5); Glucose Urine UA Negative (Negative); Ketones Urine Negative (Negative); Leukocyte Esterase Urine Negative (Negative); Nitrite Urine Negative (Negative); Protein Urine 2+ (Negative); RBC Urine Automated 0-4 /hpf (0-4); Specific Gravity Urine 1.017 (1.000-1.030); Urobilinogen Urine Negative (Negative)
[2020-03-11] MEDS ORDERED: ACETAMINOPHEN 325 MG TAB PO PRN (12:42)
[2020-03-11] MEDS ORDERED: ONDANSETRON INJ 2 MG/ML 2 ML VIAL IV PRN (12:42)
--- NOTE | 2020-03-11 12:44 | History & Physical Report ---
Date of Service March 11, 2020 Assessment & Plan (1) Cellulitis and abscess of foot: (2) Diabetic foot ulcer associated with type 2 diabetes mellitus: - Admit to [facility] for observation -Likely recent removal of callus from the left ball of the foot earlier this week created in entryway for bacteria, causing cellulitis -Received dose of IV daptomycin and aztreonam in the ER, continue Dapto -Imaging of the foot does not reveal osteomyelitis, no need for aztreonam without concerns for this -Consult wound clinic, had been following as outpatient -Follow wound culture -WBC = 13.27, CRP = 0.58, no lactic acid was initially retrieved in the ER -Slightly tachycardic with heart rate in low 100s, afebrile, BP elevated on arrival and currently 168/78 (3) Diabetes mellitus type II, controlled: -Last A1c was 6.9 on 10/26/2019, improved from prior -ISS with Accu-Cheks AC at bedtime -Hold glipizide (4) CAD (coronary artery disease): (5) S/P CABG x 3: -Follows with Dr. Lambert as outpatient - 2001 (6) CKD (chronic kidney disease): - Stage II-III - Cr of 1.14 on arrival, at baseline (7) Hypertension: -Reported his blood pressures typically are 120s over 70s, significantly higher here in ER, will monitor, can use hydralazine IV as needed - Had previously been on spironolactone but appears this has been stopped within the past month or two. Monitor during hospital stay - Dr. Neil is PCP (8) Hyperlipidemia: -Continue gemfibrozil and ezetimibe (9) Osteoarthritis: -Noted, stable (10) Chronic intractable pain: -Follows with Dr. Atkinson as outpatient, pain pump in right lower abdomen, gets this refilled every 50 days, cannot recall the last time he had it filled but was within the last 2 months. He is scheduled again later this summer. (11) History of back surgery: -History of such, related to spinal stenosis which also contributes to neuropathy -Continue Lyrica 150 BID, tramadol 50 mg q6h, Tylenol (12) Neuropathy: -Noted, worsening secondary to DM type II. (13) Sleep apnea: -History of such (14) Obstructive sleep apnea: - Does not wear CPAP or other O2 (15) Obesity (BMI 30.0-34.9): - Dietary modification and exercise as tolerated. (16) DVT prophylaxis: - teds, scds CODE: DNR Dispo: From home, likely to remain in the hospital x 1 day on observation History of Present Illness Primary Care Provider: Miles Neil MD This is a 84 yo M with PMHx of CAD s/p CABG in 2001, hTN, HLD, DM II, peripheral neuropathy, chronic intractable pain with pain pump, sleep apnea, MATT, gout who presents with diabetic foot ulceration. The patient reports that he had been following with wound clinic and saw them the beginning of this week where they examined the foot but he did not have any redness or swelling. They removed part of the callus that forms on the ball of his left foot during this appointment. His noticed increased redness and swelling of the left lower extremity this morning, he denies significant pain, can bear weight on his foot, and can move it without pain. He reports this swelling and redness is worsening compared to what it was this morning, has been outlined with a skin marker at bedside. He denies any fevers, chills or sweats. Denies any acute trauma to the area that he is aware of. He typically ambulates with walker or in a wheelchair. Patient lives at home with his . Allergies Allergy/AdvReac Type Severity Reaction Status Date / Time hydrochlorothiazide Allergy Severe Hives Verified 03/11/20 10:26 Iodinated Contrast Media Allergy Severe Convulsions Verified 03/11/20 10:26 adhesive Allergy Intermediate RASH;PULLS Verified 03/11/20 10:26 SKIN OFF levofloxacin Allergy Mild HIVES, Verified 03/11/20 10:26 PRURITIS NSAIDS (Non-Steroidal Allergy Mild Elevated BP Verified 03/11/20 10:26 Anti-Inflamma amiodarone Allergy Unknown RASH Verified 03/11/20 10:26 cephalexin Allergy Unknown AFTER 14 Verified 03/11/20 10:26 DAYS-DEVELOPED GASTRITIS-2017 Iyprltz-Qkn-Vkf Reductase Allergy Unknown Unknown Verified 03/11/20 10:26 Inhibitor terazosin [From Hytrin] Allergy Unknown Unknown Verified 03/11/20 10:26 Cephalosporins AdvReac Intermediate nausea Verified 03/11/20 10:26 after repeated dose nifedipine AdvReac Intermediate Sick to Verified 03/11/20 10:26 stomach atorvastatin AdvReac Unknown MUSCLE Verified 03/11/20 10:26 ACHES doxycycline AdvReac Unknown gi upset Verified 03/11/20 10:26 Home Medications Home Medications Medication Instructions Recorded Confirmed Type acetaminophen 650 mg 1,300 mg PO Q8H PRN tab 07/01/18 03/11/20 History tablet,extended release allopurinol 300 mg tablet 300 mg PO QAM 07/01/18 03/11/20 History latanoprost 0.005 % eye drops 1 drops OP QPM 09/11/18 03/11/20 History bupivacaine 0.25 % (2.5 mg/mL) See Rx Instructions .ROUTE 05/18/19 03/11/20 Rx injection solution .COMPLEX #50 ml pantoprazole 40 mg tablet,delayed 40 mg PO DAILY #180 tab 06/26/19 03/11/20 Rx release aspirin 81 mg tablet,delayed 81 mg PO DAILY 09/09/19 03/11/20 History release cyanocobalamin (vitamin B-12) 2,000 mcg PO DAILY 30 Days #90 cap 09/09/19 03/11/20 Rx 1,000 mcg capsule gemfibrozil [Lopid] 300 mg PO DAILY 10/30/19 03/11/20 History glipizide 10 mg tablet, extended 10 mg PO BID #180 tab 11/02/19 03/11/20 Rx release 24 hr Pain Pump See Rx Instructions .ROUTE .COMPLEX 11/09/19 03/11/20 History ezetimibe 10 mg tablet 10 mg PO QPM #90 tab 02/04/20 03/11/20 Rx pregabalin 150 mg capsule 150 mg PO BID #180 cap 02/04/20 03/11/20 Rx zolpidem 10 mg tablet 10 mg PO HS #30 tab 02/09/20 03/11/20 Rx Past Med/Surg History Social History Preferred Language: Dutch Communication Ability: Effective Visual Impairment: Limited Hearing Ability: Normal 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 Beliefs That Will Affect Care: None marital status: Current Living Situation: Spouse current occupational status: retired Other Information That Helps Us Care for You: No Feels Safe at Home: Yes Safety Concerns: Feels Safe At This Time Smoking Status: Never smoker Second Hand Exposure: No ; Hx Alcohol Use: No Hx Substance Use: No Review of Systems Review of Systems: Constitutional: No fever, chills, sweats, fatigue or weakness Eyes: No diplopia, no changes in vision ENT: No sore throat, tinnitus, or trouble swallowing Respiratory: No shortness of breath, No dyspnea at rest or on exertion, no cough or sputum Cardiovascular: No chest pain, palpitations, or flutter Abdomen: No pain, No constipation, No diarrhea, No nausea, No vomiting Musculoskeletal: No calf pain, No joint pain, No swelling Genitourinary : No dysuria or urinary frequency, No hematuria Neurologic: No numbness/tingling, no difficulty with ambulation, no sensory or motor deficits Psychiatric: No depression or anxiety symptoms Endocrine: No fatigue, No weight changes Integumentary: No itch, No rash, + left lower extremity redness as per HPI Physical Exam Physical Exam: General: awake, alert, no apparent distress, + obese, BMI 38.2 Head: Normocephalic, atraumatic ENT: PERRL, EOMI, no pharyngeal exudate, mucous membranes moist Chest: Clear to auscultation, on room air, no adventitious breath sounds Cardiac: Regular rate and rhythm, no murmur, no JVD, normal peripheral pulses, good capillary refill Abdominal: NABS x 4 quadrants, soft, nondistended, nontender to palpation, no rebound, guarding or tenderness Extremities: + LLE with edema 1+ ankle, erythema involving dorsal aspect of the foot and first metatarsal plantar surface ulceration, no fluctuance, erythema does not involve the ankle but then reappears involving the medial anterior tibial region, RLE with normal inspection, no peripheral edema or erythema, calfs nontender to palpation Psych: Normal mood and affect Neuro: AAO x 3, strength intact bilaterally and rated 5/5, no gross motor deficits, speech is clear, no peripheral sensory deficits Skin: + As per extremity exam, otherwise no rash or erythema Results & Data Results & Data ([facility]) Vital Signs (Past 12 Hours) Vital Signs Temp Pulse Pulse Resp BP BP Pulse Ox 03/11/20 12:08 103 H 20 168/78 H 94 03/11/20 10:28 73 18 206/104 H 96 03/11/20 10:13 94 03/11/20 09:39 36.6 C 68 18 176/89 H 95 Diagnostic Findings XR foot LT min 3V routine CLINICAL HISTORY: infected diabetic ulcer, plantar, 1st MTP COMPARISON: 01/05/2020 DISCUSSION: Postoperative changes involving effusion of the tarsal metatarsal joints is again noted. Hardware is intact compared to the prior study. Fracture of one distal transverse screw which is considered pre-existing. Moderate generalized soft tissue edematous change. 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 No well-defined destructive process. IMPRESSION: Generalized soft tissue edema. Generalized degenerative and postoperative change. No evidence for osteomyelitis ACT 112: Negative or not required by law. The above report was generated using voice recognition software. It may contain grammatical, syntax or spelling errors. Electronically signed by: Trace Mares M.D. 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 rate 77 BPM UT interval 214 ms QRS duration 88 ms QT/QTc 408/461 ms P-R-T axes 32 -33 38 Code Status & VTE Plan Code Status DNR- discussed with pt at bedside Supervising Physician Co-Signing Physician Notes I personally saw and examined the patient. I verified all soler points and agree with ISRAEL Davis with the following exceptions and/or additions: 84 yo M with T2DM admission for cellulitis originating from chronic ulcer/callus, no known PAD, recently followed by wound care but discharged in January as it was effectively healed at that time. Appears to have become infected after filing callus performed by his a week or so ago. O/E Chest CTAB, HS1+2+no murmurs, Abdo SNT, erythema and swelling originating from plantar ulcer at base of 1st MT around all of his foot up to ankle ankle, p us present under callused skin, drained in ER for wound culture, erythema proximal to ankle around prior vein graft site, not extending beyond knee but not confluent with cellulitic region below ankle. PT/DP pulses unable to palpate but cap refil < 2s and confirmed pulses with POC doppler A/P Cellulitis - continue daptomycin, add Unasyn for anaerobe coverage. Follow up wound culture taken in ER to narrow antibiotics. Non healing ulcer/callus - consult wound care for debridement, consider US arterial duplex if not previously performed given cardiac history of requiring bypass PG Care Time/CCT Total # of Minutes Spent Total Time Spent with Patient: Total time spent is greater than 50% in coor dination of care (as documented) at patient's floor/unit and/or counseling patient: Coding Level of Care Code 35109 OBS Care - Level 3 Diagnoses Cellulitis and abscess of foot L03.119; L02.619 Diabetic foot ulcer associated with type 2 diabetes mellitus E11.621; L97.509 Diabetes mellitus type II, controlled E11.9 CAD (coronary artery disease) I25.10 S/P CABG x 3 Z95.1 CKD (chronic kidney disease) N18.9 Chronic kidney disease stage: unspecified stage Hypertension I10 Hyperlipidemia E78.5 Osteoarthritis M19.90 Chronic intractable pain G89.29 History of back surgery Z98.890 Neuropathy G62.9 Sleep apnea G47.30 Sleep apnea type: unspecified type Obstructive sleep apnea G47.33 Obesity (BMI 30.0-34.9) E66.9 DVT prophylaxis Z29.9 (1) Sleep apnea Sleep apnea type: unspecified type Qualified Code(s): G47.30 - Sleep apnea, unspecified (2) CKD (chronic kidney disease) Chronic kidney disease stage: unspecified stage Qualified Code(s): N18.9 - Chronic kidney disease, unspecified
[2020-03-11] MEDS ORDERED: GLUCOSE 40% GEL 15 GM TUBE PO PRN (17:19)
[2020-03-11] MEDS ORDERED: DEXTROSE 50% 50 ML SYRINGE IV PRN (17:19)
[2020-03-11] MEDS ORDERED: GLUCAGON FOR INJ 1 MG VIAL SQ PRN (17:19)
[2020-03-11] MEDS ORDERED: CARBOHYDRATES FOR HYPOGLYCEMIA PO PRN (17:19)
[2020-03-11] MEDS ORDERED: GLUCOSE 10 TABS/TUBE PO PRN (17:19)
[2020-03-11] MEDS ORDERED: [UNRECOGNIZED DRUG - REMARK] XX PRN (17:45)
[2020-03-11] MEDS: AMPICILLIN/SULBACTAM SOD 1,500 MG in 0.9 % SODIUM CHLORIDE 100 ML IV SCH (19:07)
[2020-03-11] MEDS: INSULIN ASPART 100 UNITS/ML 3 ML PEN SC SCH ×2 (19:09→21:13)
--- NOTE | 2020-03-11 19:21 | Electrocardiogram Report ---
Test Reason : Blood Pressure : / mmHG Vent. 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
[2020-03-11] MEDS: ZOLPIDEM TARTRATE 10 MG TAB PO SCH (21:08)
[2020-03-11] MEDS: LATANOPROST 0.005% OP SOLN 2.5 ML BTL OP SCH (21:08)
[2020-03-11] MEDS: PREGABALIN 150 MG CAP PO SCH (21:08)
[2020-03-11] MEDS: EZETIMIBE 10 MG TABLET PO SCH (21:09)
[2020-03-11] MEDS: HEPARIN SOD 5,000 UNIT/0.5 ML VIAL SQ SCH (21:14)
[2020-03-12] MEDS: AMPICILLIN/SULBACTAM SOD 1,500 MG in 0.9 % SODIUM CHLORIDE 100 ML IV SCH ×5 (00:34→23:48)
[2020-03-12] MEDS: HEPARIN SOD 5,000 UNIT/0.5 ML VIAL SQ SCH ×3 (06:04→22:02)
[2020-03-12 07:39] LABS: Hematocrit (blood only) 45.4 % (42-52); Hemoglobin 14.8 g/dL (14.0-18.0); Mean Corpuscular Hgb Conc 32.6 g/dL (32-36); Mean Corpuscular Volume 98.1 fL (80-100); Mean Platelet Volume 11.6 fL (7.4-10.4); Platelet Count 172 K/uL (130-400); RDW Standard Deviation 49.8 fL (36.4-46.3); Red Blood Count 4.63 M/uL (4.7-6.1); White Blood Count 12.35 K/uL (4.8-10.8)
[2020-03-12 08:21] LABS: Albumin Globulin Ratio 0.9 (0.9-2); Albumin Level 3.2 gm/dl (3.4-5.0); BUN Creatinine Ratio 13.3 (10-20); Bilirubin,Total 0.8 mg/dl (0.2-1); Creatinine Clr Calc Pharmacy 57.1 ml/min; Est GFR (African American) 73.5; Est GFR (Non-African American) 63.4; Globulin 3.6 gm/dl (2.5-4.0); Total Protein 6.8 gm/dl (6.4-8.2)
[2020-03-12] MEDS: gemfibroziL 600 MG TAB PO SCH (08:47)
[2020-03-12] MEDS: PANTOprazole 40 MG TAB PO SCH (08:48)
[2020-03-12] MEDS: ASPIRIN 81 MG ECTAB PO SCH (08:48)
[2020-03-12] MEDS: CYANOCOBALAMIN 500 MCG TABLET (VITAMIN B-12) PO SCH (08:48)
[2020-03-12] MEDS: allopurinoL 300 MG TAB PO SCH (08:48)
[2020-03-12 09:07] LABS: Potassium 3.3 mmol/L (3.5-5.1)
[2020-03-12] MEDS: PREGABALIN 150 MG CAP PO SCH ×2 (09:07→21:59)
[2020-03-12] MEDS: INSULIN ASPART 100 UNITS/ML 3 ML PEN SC SCH ×4 (09:08→21:55)
[2020-03-12] MEDS ORDERED: POTASSIUM CHLORIDE 20 MEQ TABCR PO STA (09:58)
[2020-03-12] MEDS: DAPTOmycin 325 MG in SYRINGE 0 ML IV SCH (10:53)
--- NOTE | 2020-03-12 12:52 | Hospitalist Progress Note ---
Date of Service March 12, 2020 Assessment & Plan (1) Diabetic foot ulcer associated with type 2 diabetes mellitus: With left foot ulcer with callus for many years, had recent debridement of this a few months back, now with infection evident with spreading cellulitis of the left leg Much improved today Wound culture pending, blood cultures no growth to date No evidence of sepsis, leukocytosis on admission is slightly down to 12, however patient has a history of CLL and this is around his baseline anyway. He is afebrile Osteomyelitis not evident on x-ray and sed rate is normal at 3 making this not likely He does have underlying hardware in that foot from a previous surgery -Continue IV daptomycin and IV Unasyn -Continue to follow -Appreciate orthopedic surgery consultation -For planned soaks with 50/50 Betadine and saline twice daily (2) Cellulitis and abscess of foot: As above (3) Diabetes mellitus type II, controlled: -Last A1c was 6.9 on 10/26/2019, improved from prior Blood sugars controlled -ISS with Accu-Cheks AC at bedtime -Continue holding glipizide (4) CAD (coronary artery disease): Status post CABG -Continue aspirin, ezetimibe, gemfibrozil He is not on beta-olinda (5) S/P CABG x 3: -Follows with Dr. Lambert as outpatient - 2001 (6) CKD (chronic kidney disease): - Stage II-III - Cr of 1.14 on arrival, remains at baseline -Avoid nephrotoxins -renally dose meds when appropriate -follow BMP (7) Hypertension: -BP is mildly elevated - Had previously been on spironolactone but appears this has been stopped within the past month or two. -Continue to monitor (8) Hyperlipidemia: -Continue gemfibrozil and ezetimibe (9) Osteoarthritis: -Noted, stable (10) Chronic intractable pain: -Follows with Dr. Atkinson as outpatient, pain pump in right lower abdomen, gets this refilled every 50 days, cannot recall the last time he had it filled but was within the last 2 months. He is scheduled again later this summer. (11) History of back surgery: -History of such, related to spinal stenosis which also contributes to neuropathy -Continue Lyrica 150 BID, tramadol 50 mg q6h, Tylenol (12) Neuropathy: -Noted, worsening secondary to DM type II. (13) Obstructive sleep apnea: - Does not wear CPAP or other O2 (14) Obesity (BMI 30.0-34.9): BMI up to 38.2 - Dietary modification and exercise as tolerated. (15) Hypokalemia: Potassium low today at 3.3 -Replaced with potassium chloride 40 mEq p.o. x1 -Follow BMP in the morning (16) DVT prophylaxis: - teds, scds, SQ heparin CODE: DNR Dispo: Continued stay, but if continues to improve and culture results back, could possibly discharge home tomorrow Admission and Anticipated Discharge Date Admission Date: March 11, 2020 Subjective Patient feeling well. No fevers or sweats or chills. No pain in the foot. He thinks that the redness has improved. He denies any chest pain or shortness of breath, no nausea or vomiting, no abdominal pain. Review of Systems Review of Systems: All systems reviewed & are unremarkable except as noted in HPI & below Physical Exam Constitutional: WD/WN, vitals as above Eyes: + anicteric sclerae Neck: trachea midline, no thyromegaly Respiratory: normal respiratory effort, lungs clear to auscultation Cardiovascular: Rate/Rhythm: regular rate and regular rhythm (With ectopy) Extremities: + edema (Left distal leg and foot with 1+ pitting edema) Chest (Breasts): Chest: normal inspection of chest Gastrointestinal (Abdomen): normal bowel sounds, soft, nontender, no hepatosplenomegaly Musculoskeletal: Extremities: no cyanosis and no clubbing Skin: + wound (Left plantar surface of left foot between first and second MTP with callus with eschar and fluctuant pocket of purulent fluid) and + erythema (Very mild erythema of the left foot, now completely receded from previous marker line drawn up to the mid tibia) Neurologic: moves all extremities and awake; no focal motor deficits Psychiatric: A+Ox3, euthymic affect Lymphatic: no lymphedema Results & Data Results & Data ([facility]) Vital Signs (Past 12 Hours) Vital Signs Temp Pulse Resp BP Pulse Ox 03/12/20 07:24 36.9 C 76 20 167/82 H 91 Laboratory Results 03/12/20 03/12/20 03/12/20 Range/Units 17:00 12:14 08:26 WBC (4.8-10.8) K/uL RBC (4.7-6.1) M/uL Hgb (14.0-18.0) g/dL Hct (42-52) % MCV (80-100) fL MCH (25-34) pg MCHC (32-36) g/dL RDW Std Deviation (36.4-46.3) fL RDW Coeff of Jennifer (11.5-14.5) % Plt Count (130-400) K/uL MPV (7.4-10.4) fL Sodium (136-145) mmol/L Potassium 3.3 L (3.5-5.1) mmol/L Chloride (98-107) mmol/L Carbon Dioxide (21-32) mmol/L Anion Gap (3-11) BUN (7-18) mg/dl Creatinine (0.6-1.4) mg/dl Est Cr Clr Drug Dosing ml/min Est GFR ( Amer) Est GFR (Non-Af Amer) BUN/Creatinine Ratio (10-20) Glucose (70-99) mg/dl POC Glucose 134 H 145 H (70-99) mg/dl Calcium (8.5-10.1) mg/dl Total Bilirubin (0.2-1) mg/dl AST 17 (15-37) U/L ALT (12-78) U/L Alkaline Phosphatase (45-117) U/L Total Protein (6.4-8.2) gm/dl Albumin (3.4-5.0) gm/dl Globulin (2.5-4.0) gm/dl Albumin/Globulin Ratio (0.9-2) 03/12/20 03/12/20 03/12/20 Range/Units 08:19 07:15 07:15 WBC 12.35 H (4.8-10.8) K/uL RBC 4.63 L (4.7-6.1) M/uL Hgb 14.8 (14.0-18.0) g/dL Hct 45.4 (42-52) % MCV 98.1 (80-100) fL MCH 32.0 (25-34) pg MCHC 32.6 (32-36) g/dL RDW Std Deviation 49.8 H (36.4-46.3) fL RDW Coeff of Jennifer 14.0 (11.5-14.5) % Plt Count 172 (130-400) K/uL MPV 11.6 H (7.4-10.4) fL Sodium 140 (136-145) mmol/L Potassium (3.5-5.1) mmol/L Chloride 107 (98-107) mmol/L Carbon Dioxide 26 (21-32) mmol/L Anion Gap 7.0 (3-11) BUN 14 (7-18) mg/dl Creatinine 1.07 (0.6-1.4) mg/dl Est Cr Clr Drug Dosing 57.1 ml/min Est GFR ( Amer) 73.5 Est GFR (Non-Af Amer) 63.4 BUN/Creatinine Ratio 13.3 (10-20) Glucose 127 H (70-99) mg/dl POC Glucose 133 H (70-99) mg/dl Calcium 9.0 (8.5-10.1) mg/dl Total Bilirubin 0.8 (0.2-1) mg/dl AST (15-37) U/L ALT 29 (12-78) U/L Alkaline Phosphatase 62 (45-117) U/L Total Protein 6.8 (6.4-8.2) gm/dl Albumin 3.2 L (3.4-5.0) gm/dl Globulin 3.6 (2.5-4.0) gm/dl Albumin/Globulin Ratio 0.9 (0.9-2) 03/12/20 03/11/20 Range/Units 02:11 20:35 WBC (4.8-10.8) K/uL RBC (4.7-6.1) M/uL Hgb (14.0-18.0) g/dL Hct (42-52) % MCV (80-100) fL MCH (25-34) pg MCHC (32-36) g/dL RDW Std Deviation (36.4-46.3) fL RDW Coeff of Jennifer (11.5-14.5) % Plt Count (130-400) K/uL MPV (7.4-10.4) fL Sodium (136-145) mmol/L Potassium (3.5-5.1) mmol/L Chloride (98-107) mmol/L Carbon Dioxide (21-32) mmol/L Anion Gap (3-11) BUN (7-18) mg/dl Creatinine (0.6-1.4) mg/dl Est Cr Clr Drug Dosing ml/min Est GFR ( Amer) Est GFR (Non-Af Amer) BUN/Creatinine Ratio (10-20) Glucose (70-99) mg/dl POC Glucose 133 H 131 H (70-99) mg/dl Calcium (8.5-10.1) mg/dl Total Bilirubin (0.2-1) mg/dl AST (15-37) U/L ALT (12-78) U/L Alkaline Phosphatase (45-117) U/L Total Protein (6.4-8.2) gm/dl Albumin (3.4-5.0) gm/dl Globulin (2.5-4.0) gm/dl Albumin/Globulin Ratio (0.9-2) PG Care Time/CCT Total # of Minutes Spent Total Time Spent with Patient: Total time spent is greater than 50% in coordination of care (as documented) at patient's floor/unit and/or counseling patient: Coding Level of Care Code 61482 Subseq Hosp Care Lvl 3 Diagnoses Diabetic foot ulcer associated with type 2 diabetes mellitus E11.621; L97.509 Cellulitis and abscess of foot L03.119; L02.619 Diabetes mellitus type II, controlled E11.9 CAD (coronary artery disease) I25.10 S/P CABG x 3 Z95.1 CKD (chronic kidney disease) N18.9 Chronic kidney disease stage: unspecified stage Hypertension I10 Hyperlipidemia E78.5 Osteoarthritis M19.90 Chronic intractable pain G89.29 History of back surgery Z98.890 Neuropathy G62.9 Obstructive sleep apnea G47.33 Obesity (BMI 30.0-34.9) E66.9 Hypokalemia E87.6 DVT prophylaxis Z29.9 (1) CKD (chronic kidney disease) Chronic kidney disease stage: unspecified stage Qualified Code(s): N18.9 - Chronic kidney disease, unspecified
--- NOTE | 2020-03-12 13:27 | Orthopedic Consultation ---
Date of Consultation March 12, 2020 Assessment & Plan (1) Diabetic foot ulcer associated with type 2 diabetes mellitus: At this point would recommend continued conservative treatment. Would start warm soaks twice a day with 50-50 mix of warm saline and Betadine. Redress with a light dressing if necessary and if drainage. Continue IV Dapto and Unasyn as per medical service. He can weight-bear as tolerated but would recommend weightbearing on left heel. He can use a postop shoe for comfort. Elevation as needed for swelling. A light dressing was applied today as it was oozing some fluid. We will continue to follow cultures and no new cultures were obtained. Will continue to follow and will discuss findings with Dr. Marino. Call with any worsening issues or concerns. Recommend wound consult for management of wound while inpatient. Activities as tolerated. I, Dr. Marino, agree with the above findings and plan of care discussed with my PA. Present on Admission?: Yes History of Present Illness Reason for Consultation: Left foot ulcer, diabetic wound Requesting Physician: Corey Marino MD Attending Physician: Tess Medellin MD History of Present Illness Patient is an 84-year-old male who is admitted for cellulitis and abscess of his left foot. He states to me that he has had this callus since he has been 20 years old. States that he usually sees Dr. Lyon for this but started with the wound clinic approximately [address] Lyon was out of work. States that he is never had any issues with the callus. He is having never issues with infection. He states that it is been shaved many times without issues. He developed some increased pain and swelling over the last few days. Due to the increased pain and swelling his brought him to the emergency room. He was admitted for cellulitis and abscess of his left foot. Denies any significant pain today. States that the redness looks significantly better to him today. He states he got better very quickly once started with IV antibiotics. He has diabetic neuropathy and states that he does not have much feeling in his foot. He does have a history of undergoing an ORIF of his left Lisfranc injury by Dr. Cintron at [place]. Denies any injury to his left foot. States that just started becoming more painful and red since going to the wound clinic. Currently on IV daptomycin and Unasyn. Has not noticed any drainage from the left foot ulcer. Allergies Allergy/AdvReac Type Severity Reaction Status Date / Time hydrochlorothiazide Allergy Severe Hives Verified 03/11/20 10:26 Iodinated Contrast Media Allergy Severe Convulsions Verified 03/11/20 10:26 adhesive Allergy Intermediate RASH;PULLS Verified 03/11/20 10:26 SKIN OFF levofloxacin Allergy Mild HIVES, Verified 03/11/20 10:26 PRURITIS NSAIDS (Non-Steroidal Allergy Mild Elevated BP Verified 03/11/20 10:26 Anti-Inflamma amiodarone Allergy Unknown RASH Verified 03/11/20 10:26 cephalexin Allergy Unknown AFTER 14 Verified 03/11/20 10:26 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 [id number]-Tfy-Fsj Reductase Allergy Unknown Unknown Verified 03/11/20 10:26 Inhibitor terazosin [From Hytrin] Allergy Unknown Unknown Verified 03/11/20 10:26 Cephalosporins AdvReac Intermediate nausea Verified 03/11/20 10:26 after repeated dose nifedipine AdvReac Intermediate Sick to Verified 03/11/20 10:26 stomach atorvastatin AdvReac Unknown MUSCLE Verified 03/11/20 10:26 ACHES doxycycline AdvReac Unknown gi upset Verified 03/11/20 10:26 Home Medications Home Medications Medication Instructions Recorded Confirmed Type acetaminophen 650 mg 1,300 mg PO Q8H PRN tab 07/01/18 03/11/20 History tablet,extended release allopurinol 300 mg tablet 300 mg PO QAM 07/01/18 03/11/20 History latanoprost 0.005 % eye drops 1 drops OP QPM 09/11/18 03/11/20 History bupivacaine 0.25 % (2.5 mg/mL) See Rx Instructions .ROUTE 05/18/19 03/11/20 Rx injection solution .COMPLEX #50 ml pantoprazole 40 mg tablet,delayed 40 mg PO DAILY #180 tab 06/26/19 03/11/20 Rx release aspirin 81 mg tablet,delayed 81 mg PO DAILY 09/09/19 03/11/20 History release cyanocobalamin (vitamin B-12) 2,000 mcg PO DAILY 30 Days #90 cap 09/09/19 03/11/20 Rx 1,000 mcg capsule gemfibrozil [Lopid] 300 mg PO DAILY 10/30/19 03/11/20 History glipizide 10 mg tablet, extended 10 mg PO BID #180 tab 11/02/19 03/11/20 Rx release 24 hr Pain Pump See Rx Instructions .ROUTE .COMPLEX 11/09/19 03/11/20 History ezetimibe 10 mg tablet 10 mg PO QPM #90 tab 02/04/20 03/11/20 Rx pregabalin 150 mg capsule 150 mg PO BID #180 cap 02/04/20 03/11/20 Rx zolpidem 10 mg tablet 10 mg PO HS #30 tab 02/09/20 03/11/20 Rx Patient History Medical History CAD (coronary artery disease) (Chronic) Callus (Acute) Cataracts, bilateral (Chronic) Chronic intractable pain (Chronic) Chronic leg pain (Chronic) Diabetes mellitus type II, controlled Diabetes mellitus with diabetic polyneuropathy (Acute) Diabetic foot ulcer associated with type 2 diabetes mellitus (Resolved) Gastroesophageal reflux disease (Chronic) Gastropathy (Chronic) Glaucoma (Chronic) Gout, joint (Chronic) Hypercholesterolemia (Chronic) Hyperlipidemia (Chronic) Hypertension (Chronic) Hypogonadism Incisional hernia (Chronic) Left midfoot ulcer (Acute) Lumbar postlaminectomy syndrome (Chronic) Lumbar spinal stenosis (Chronic) Lung nodule (Chronic) Neuropathy (Chronic) Obstructive sleep apnea (Chronic) Osteoarthritis (Chronic) Peripheral neuropathy (Chronic) Sleep apnea (Chronic) Sleep apnea (Chronic) 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) Umbilical hernia (Resolved) 2006 Surgical History H/O umbilical hernia repair History of appendectomy (Chronic) 1946 History of back surgery (Chronic) x4 laminectomy 1984; AL Fusion L5-S1 1988; L4, L5 S1 [id number]; History of carpal tunnel surgery History of cataract surgery S/P triple vessel bypass (Chronic) 2001 Status post left foot surgery Status post right partial knee replacement (Chronic) partial 2005 Surgery, elective Neurol drug infusion implantation of programmable pump 2010 Family History Mother Stroke Coronary heart disease Hypertension Osteoarthritis Rheumatoid arthritis Father Coronary heart disease Sister Familial tremor Other Family history non-contributory Social History Preferred Language: Mauritanian Communication Ability: Effective Visual Impairment: Limited Hearing Ability: Normal Technology Resource Teacher Required: No Beliefs That Will Affect Care: None marital status: Current Living Situation: Spouse current occupational status: retired Other Information That Helps Us Care for You: No Feels Safe at Home: Yes Safety Concerns: Feels Safe At This Time Smoking Status: Never smoker Second Hand Exposure: No ; Hx Alcohol Use: No Hx Substance Use: No Review of Systems Review of Systems: All systems reviewed & are unremarkable except as noted in HPI & below Physical Exam Musculoskeletal: Left foot with mild edema under the left foot and lower ankle. The redness seems to have subsided from the drawn turner on his skin. He is nontender with palpation of the left foot or left ankle today. The left callus has a small blister type formation at the bottom of the callus. This was pressed and some mild clear, bloody fluid was expelled from the previous aspiration site. He has full range of motion of his left ankle. He has full range of motion of his left great toe with nontender at the MTP and DIP joint. Cap refill is brisk. There is no area of significant fluctuance. There is no purulence material expelled from the aspiration site. There is some surrounding erythema and a dried hard callus at the ball of his foot. He is nontender throughout the rest of his foot or his heel. Has full passive and active ROM of left great toe. No toenail injury. I, Dr. Marino, agree with the above findings. Results & Data ([facility]) Vital Signs (Past 12 Hours) Vital Signs Temp Pulse Resp BP Pulse Ox 03/12/20 07:24 36.9 C 76 20 167/82 H 91 Laboratory Results 03/12/20 03/12/20 03/12/20 Range/Units 12:14 08:26 08:19 WBC (4.8-10.8) K/uL RBC (4.7-6.1) M/uL Hgb (14.0-18.0) g/dL Hct (42-52) % MCV (80-100) fL MCH (25-34) pg MCHC (32-36) g/dL RDW Std Deviation (36.4-46.3) fL RDW Coeff of Jennifer (11.5-14.5) % Plt Count (130-400) K/uL MPV (7.4-10.4) fL Sodium (136-145) mmol/L Potassium 3.3 L (3.5-5.1) mmol/L Chloride (98-107) mmol/L Carbon Dioxide (21-32) mmol/L Anion Gap (3-11) BUN (7-18) mg/dl Creatinine (0.6-1.4) mg/dl Est Cr Clr Drug Dosing ml/min Est GFR ( Amer) Est GFR (Non-Af Amer) BUN/Creatinine Ratio (10-20) Glucose (70-99) mg/dl POC Glucose 145 H 133 H (70-99) mg/dl Calcium (8.5-10.1) mg/dl Total Bilirubin (0.2-1) mg/dl AST 17 (15-37) U/L ALT (12-78) U/L Alkaline Phosphatase (45-117) U/L Total Protein (6.4-8.2) gm/dl Albumin (3.4-5.0) gm/dl Globulin (2.5-4.0) gm/dl Albumin/Globulin Ratio (0.9-2) 03/12/20 03/12/20 03/12/20 Range/Units 07:15 07:15 02:11 WBC 12.35 H (4.8-10.8) K/uL RBC 4.63 L (4.7-6.1) M/uL Hgb 14.8 (14.0-18.0) g/dL Hct 45.4 (42-52) % MCV 98.1 (80-100) fL MCH 32.0 (25-34) pg MCHC 32.6 (32-36) g/dL RDW Std Deviation 49.8 H (36.4-46.3) fL RDW Coeff of Jennifer 14.0 (11.5-14.5) % Plt Count 172 (130-400) K/uL MPV 11.6 H (7.4-10.4) fL Sodium 140 (136-145) mmol/L Potassium (3.5-5.1) mmol/L Chloride 107 (98-107) mmol/L Carbon Dioxide 26 (21-32) mmol/L Anion Gap 7.0 (3-11) BUN 14 (7-18) mg/dl Creatinine 1.07 (0.6-1.4) mg/dl Est Cr Clr Drug Dosing 57.1 ml/min Est GFR ( Amer) 73.5 Est GFR (Non-Af Amer) 63.4 BUN/Creatinine Ratio 13.3 (10-20) Glucose 127 H (70-99) mg/dl POC Glucose 133 H (70-99) mg/dl Calcium 9.0 (8.5-10.1) mg/dl Total Bilirubin 0.8 (0.2-1) mg/dl AST (15-37) U/L ALT 29 (12-78) U/L Alkaline Phosphatase 62 (45-117) U/L Total Protein 6.8 (6.4-8.2) gm/dl Albumin 3.2 L (3.4-5.0) gm/dl Globulin 3.6 (2.5-4.0) gm/dl Albumin/Globulin Ratio 0.9 (0.9-2) 03/11/20 03/11/20 Range/Units 20:35 17:04 WBC (4.8-10.8) K/uL RBC (4.7-6.1) M/uL Hgb (14.0-18.0) g/dL Hct (42-52) % MCV (80-100) fL MCH (25-34) pg MCHC (32-36) g/dL RDW Std Deviation (36.4-46.3) fL RDW Coeff of Jennifer (11.5-14.5) % Plt Count (130-400) K/uL MPV (7.4-10.4) fL Sodium (136-145) mmol/L Potassium (3.5-5.1) mmol/L Chloride (98-107) mmol/L Carbon Dioxide (21-32) mmol/L Anion Gap (3-11) BUN (7-18) mg/dl Creatinine (0.6-1.4) mg/dl Est Cr Clr Drug Dosing ml/min Est GFR ( Amer) Est GFR (Non-Af Amer) BUN/Creatinine Ratio (10-20) Glucose (70-99) mg/dl POC Glucose 131 H 130 H (70-99) mg/dl Calcium (8.5-10.1) mg/dl Total Bilirubin (0.2-1) mg/dl AST (15-37) U/L ALT (12-78) U/L Alkaline Phosphatase (45-117) U/L Total Protein (6.4-8.2) gm/dl Albumin (3.4-5.0) gm/dl Globulin (2.5-4.0) gm/dl Albumin/Globulin Ratio (0.9-2) Diagnostic Findings XR foot LT min 3V routine CLINICAL HISTORY: infected diabetic ulcer, plantar, 1st MTP COMPARISON: 01/05/2020 DISCUSSION: Postoperative changes involving effusion of the tarsal metatarsal joints is again noted. Hardware is intact compared to the prior study. Fracture of one distal transverse screw which is considered pre-existing. Moderate generalized soft tissue edematous change. 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 No well-defined destructive process. IMPRESSION: Generalized soft tissue edema. Generalized degenerative and postoperative change. No evidence for osteomyelitis
[2020-03-12] MEDS: LATANOPROST 0.005% OP SOLN 2.5 ML BTL OP SCH (21:59)
[2020-03-12] MEDS: ZOLPIDEM TARTRATE 10 MG TAB PO SCH (21:59)
[2020-03-12] MEDS: EZETIMIBE 10 MG TABLET PO SCH (22:00)
[2020-03-13] MEDS: HEPARIN SOD 5,000 UNIT/0.5 ML VIAL SQ SCH ×2 (06:03→14:12)
[2020-03-13] MEDS: AMPICILLIN/SULBACTAM SOD 1,500 MG in 0.9 % SODIUM CHLORIDE 100 ML IV SCH ×2 (06:04→14:11)
[2020-03-13 06:54] LABS: BUN Creatinine Ratio 16.2 (10-20); Calcium 8.6 mg/dl (8.5-10.1); Creatinine Clr Calc Pharmacy 61.1 ml/min; Est GFR (African American) 79.7; Est GFR (Non-African American) 68.8; Potassium 3.5 mmol/L (3.5-5.1)
[2020-03-13] MEDS: ASPIRIN 81 MG ECTAB PO SCH (09:09)
[2020-03-13] MEDS: allopurinoL 300 MG TAB PO SCH (09:10)
[2020-03-13] MEDS: CYANOCOBALAMIN 500 MCG TABLET (VITAMIN B-12) PO SCH (09:10)
[2020-03-13] MEDS: gemfibroziL 600 MG TAB PO SCH (09:10)
[2020-03-13] MEDS: PANTOprazole 40 MG TAB PO SCH (09:10)
[2020-03-13] MEDS: INSULIN ASPART 100 UNITS/ML 3 ML PEN SC SCH ×2 (09:13→14:12)
[2020-03-13] MEDS: DAPTOmycin 325 MG in SYRINGE 0 ML IV SCH (09:18)
[2020-03-13] MEDS: PREGABALIN 150 MG CAP PO SCH (09:18)
--- NOTE | 2020-03-13 10:34 | Orthopedic Progress Note ---
Date of Service March 13, 2020 Assessment & Plan (1) Diabetic foot ulcer associated with type 2 diabetes mellitus: Continue warm soaks BID - when discharged encouraged him to do warm soaks with soapy water twice daily. Will have patient see Dr. Garcia in the future, tomorrow if he's still in hospital or as outpatient in the near future. May be out of bed as tolerated, activity as tolerated Antibiotics as per primary team. Continue conservative treatment for foot. Elevation as needed for swelling Cover with dressing as needed after soaks. Use post op shoe as needed May weight bear as tolerated on left heel. Use walker to assist with ambulation. Okay from ortho standpoint for discharge when medically stable. Follow up with Dr. Marino in 1-2 weeks. Call [phone] Marino present for today's examination. I, Dr. Marino, saw and examined the patient with my PA and agree with the above findings and plan of care which I discussed with my PA. Admission and Anticipated Discharge Date Admission Date: March 11, 2020 Subjective resting in bed, denies pain. Just finished soaking left foot. new dressings applied by nursing. Wishing to go home soon. Physical Exam Physical Exam: Exam of left foot: reveals hard callous ball of foot, 1st MTP joint. Nontender to palpation. distal pulses 1+, cap. refill brisk. Full ankle ROM and normal strength. decreased erythema left foot, ankle and lower leg Results & Data ([facility]) Vital Signs (Past 12 Hours) Vital Signs Temp Pulse Resp BP Pulse Ox 03/13/20 07:10 36.7 C 66 18 179/98 H 93 03/13/20 00:00 36.6 C 79 16 159/78 H 93
--- NOTE | 2020-03-13 14:34 | Discharge Summary ---
Date of Service March 13, 2020 Admission HPI Per Admitting Provider This is a 84 yo M with PMHx of CAD s/p CABG in 2001, hTN, HLD, DM II, peripheral neuropathy, chronic intractable pain with pain pump, sleep apnea, MATT, gout who presents with diabetic foot ulceration. The patient reports that he had been following with wound clinic and saw them the beginning of this week where they examined the foot but he did not have any redness or swelling. They removed part of the callus that forms on the ball of his left foot during this appointment. His noticed increased redness and swelling of the left lower extremity this morning, he denies significant pain, can bear weight on his foot, and can move it without pain. He reports this swelling and redness is worsening compared to what it was this morning, has been outlined with a skin marker at bedside. He denies any fevers, chills or sweats. Denies any acute trauma to the area that he is aware of. He typically ambulates with walker or in a wheelchair. Patient lives at home with his . Principal Diagnosis Diabetic foot wound with cellulitis and abscess Discharge Exam Constitutional WD/WN, vitals as above Eyes + anicteric sclerae Neck trachea midline, no thyromegaly Respiratory normal respiratory effort, lungs clear to auscultation Cardiovascular Rate/Rhythm: regular rate and regular rhythm (With ectopy) Extremities: + edema (Left distal leg and foot with 1+ pitting edema) Chest (Breasts) Chest: normal inspection of chest Gastrointestinal (Abdomen) normal bowel sounds, soft, nontender, no hepatosplenomegaly Musculoskeletal Extremities: no cyanosis and no clubbing Skin no rashes, warm and dry + wound (Left plantar surface of left foot between first and second MTP with callus); no erythema (all previous erythema of left foot and leg resolved) no further fluctuance or purulent drainage from foot wound Neurologic moves all extremities and awake; no focal motor deficits Psychiatric A+Ox3, euthymic affect Lymphatic no lymphedema Discharge Data Allergies Allergy/AdvReac Type Severity Reaction Status Date / Time hydrochlorothiazide Allergy Severe Hives Verified 03/11/20 10:26 Iodinated Contrast Media Allergy Severe Convulsions Verified 03/11/20 10:26 adhesive Allergy Intermediate RASH;PULLS Verified 03/11/20 10:26 SKIN OFF levofloxacin Allergy Mild HIVES, Verified 03/11/20 10:26 PRURITIS NSAIDS (Non-Steroidal Allergy Mild Elevated BP Verified 03/11/20 10:26 Anti-Inflamma amiodarone Allergy Unknown RASH Verified 03/11/20 10:26 cephalexin Allergy Unknown AFTER 14 Verified 03/11/20 10:26 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 Cdhwnjr-Ado-Vit Reductase Allergy Unknown Unknown Verified 03/11/20 10:26 Inhibitor terazosin [From Hytrin] Allergy Unknown Unknown Verified 03/11/20 10:26 Cephalosporins AdvReac Intermediate nausea Verified 03/11/20 10:26 after repeated dose nifedipine AdvReac Intermediate Sick to Verified 03/11/20 10:26 stomach atorvastatin AdvReac Unknown MUSCLE Verified 03/11/20 10:26 ACHES doxycycline AdvReac Unknown gi upset Verified 03/11/20 10:26 Consultations 03/11/20 12:43 Consult Case Management - Discharge Planning Routine 03/11/20 12:47 ED Decision to Admit Stat 03/11/20 16:41 Consult Wound Care Provider Routine 03/12/20 09:28 Consult Orthopedic Surgery Routine Ordered Studies foot xray Hospital Course (1) Diabetic foot ulcer associated with type 2 diabetes mellitus: With left foot ulcer with callus for many years, had recent debridement of this a few months back, now with infection evident with spreading cellulitis of the left leg SIgnificantly improved today Wound culture with Staph species, sensitivities pending Blood cultures no growth to date No evidence of sepsis, leukocytosis on admission is slightly down to 12, however patient has a history of CLL and this is around his baseline anyway. He is afebrile Osteomyelitis not evident on x-ray and sed rate is normal at 3 making this not likely He does have underlying hardware in that foot from a previous surgery -received IV daptomycin and IV Unasyn---> dc to home on po doxy 100mg bid and have PCP f/u on Wound cx result -has doxy listed as allergy but pt and don't recall a bad reaction--> he frequently has GI upset and diarrhea with antibiotics--> they will watch for this and take doxy with food to prevent nausea -continue warm soapy water soaks to foot bid -Appreciate orthopedic surgery consultation -recommend f/u with Dr. eBrmudez of Podiatry and Ortho within 1-2 weeks (2) Cellulitis and abscess of foot: As above (3) Diabetes mellitus type II, controlled: -Last A1c was 6.9 on 10/26/2019, improved from prior Blood sugars controlled -ISS with Accu-Cheks AC at bedtime given here -restart glipizide on discharge -HgbA1C drawn here but pending at time of discharge (4) CAD (coronary artery disease): Status post CABG -Continue aspirin, ezetimibe, gemfibrozil He is not on beta-olinda (5) S/P CABG x 3: -Follows with Dr. Lambert as outpatient - 2001 (6) CKD (chronic kidney disease): - Stage II-III - Cr of 1.14 on arrival, remains at baseline -Avoid nephrotoxins -renally dose meds when appropriate -follow BMP (7) Hypertension: -BP is mildly elevated - Had previously been on spironolactone but appears this has been stopped within the past month or two. -Continue to monitor (8) Hyperlipidemia: -Continue gemfibrozil and ezetimibe (9) Osteoarthritis: -Noted, stable (10) Chronic intractable pain: -Follows with Dr. Atkinson as outpatient, pain pump in right lower abdomen, gets this refilled every 50 days, cannot recall the last time he had it filled but was within the last 2 months. He is scheduled again later this summer. (11) History of back surgery: -History of such, related to spinal stenosis which also contributes to neuropathy -Continue Lyrica 150 BID, tramadol 50 mg q6h, Tylenol (12) Neuropathy: -Noted, worsening secondary to DM type II. (13) Obstructive sleep apnea: - Does not wear CPAP or other O2 (14) Obesity (BMI 30.0-34.9): BMI up to 38.2 - Dietary modification and exercise as tolerated. (15) Hypokalemia: Potassium low and was replaced, now normal (16) DVT prophylaxis: - teds, scds, SQ heparin CODE: DNR Dispo: stable for dc to home as recommended by PT josé antonio here Total Time Total Time Spent Total Time Spent (In Minutes): >30 min Total Time Includes: Examination of the Patient, Discharge Planning and Medication Reconciliation Discharge Plan Discharge Items Patient Disposition: Home - Self-Care Reason For Visit: CELLULITIS,FOOT WOUND Discharge Diagnosis: Left foot cellulitis and abscess, callus Condition on Discharge: Good Activity: As commented below Bathing: No limitations Exercise/Sports: Gradually increase as tolerated Exercise Comment: with Diabetic shoe in place Non-emergency contact: Primary Care Provider and Surgeon Call non-emergency contact if: you have any medication questions, your symptoms worsen, you have a fever and your temperature is above 101 Follow-up/Referrals: Miles Neil MD [Primary Care Provider] - (Please follow up within 1-2 weeks.) Corey Marino MD [Physician] - (Please call for a follow up appointment within 2 weeks.) Joy Leung DPM [Physician] - (Please follow up with Dr. Bermudez of Podiatry within 1 week.) Diet: Carb Consistent or DM2 and Heart Healthy Addtl Attending Provider Instructions: Please continue taking the antibiotic called doxycycline 100mg by mouth twice a day for 8 more days There is a bacteria called Staphylococcus growing out of your foot wound. Dr. Neil can follow up on the final result of your wound culture within 1-2 days. Continue warm, soapy water soaks to the left foot x 20 min, twice a day. Follow up with the new Vacuum Applicator Operator, Dr. Bermudez, and with Dr. Marino of [facility] in 1-2 weeks. Pending Studies at Discharge: Yes (Final wound culture and blood culture results) Stand-Alone Forms: My [facility] Medications and DC Order Prescriptions: New doxycycline hyclate 100 mg tablet 100 mg PO BID Qty: 16 RF: 0 Continued acetaminophen 650 mg tablet extended release 1,300 mg PO Q8H PRN (Reason: Fever Or Pain) RF: 0 allopurinol [Zyloprim] 300 mg tablet 300 mg PO QAM RF: 0 latanoprost 0.005 % drops 1 drops OP QPM RF: 0 bupivacaine 0.25 % (2.5 mg/mL) solution See Rx Instructions .ROUTE .COMPLEX Qty: 50 RF: 0 pantoprazole [Protonix] 40 mg tablet,delayed release (DR/EC) 40 mg PO DAILY Qty: 180 RF: 3 glipizide 10 mg tablet extended release 24hr 10 mg PO BID Qty: 180 RF: 3 ezetimibe [Zetia] 10 mg tablet 10 mg PO QPM Qty: 90 RF: 3 pregabalin [Lyrica] 150 mg capsule 150 mg PO BID Qty: 180 RF: 1 zolpidem [Ambien] 10 mg tablet 10 mg PO HS Qty: 30 RF: 3 aspirin [Adult Low Dose Aspirin] 81 mg tablet,delayed release (DR/EC) 81 mg PO DAILY RF: 0 cyanocobalamin (vitamin B-12) 1,000 mcg capsule 2,000 mcg PO DAILY 30 Days Qty: 90 RF: 3 Pain Pump See Rx Instructions .ROUTE .COMPLEX RF: 0 gemfibrozil [Lopid] 600 mg tablet 300 mg PO DAILY RF: 0 Discharge Orders: Discharge Order (Routine); Ordered 03/13/20 Ordered By: Tess Medellin Admission Data Admit Date/Time: 03/11/20 12:42 Attending Provider: Tess Medellin Admit Provider: Miles More Primary Care Provider: Miles Neil Other Providers: Miles More ; Brandon Carlos ; Corey Marino Coding Level of Care Code D/C Day Management >30 mins Diagnoses Diabetic foot ulcer associated with type 2 diabetes mellitus E11.621; L97.509 Cellulitis and abscess of foot L03.119; L02.619 Diabetes mellitus type II, controlled E11.9 CAD (coronary artery disease) I25.10 S/P CABG x 3 Z95.1 CKD (chronic kidney disease) N18.9 Chronic kidney disease stage: unspecified stage Hypertension I10 Hyperlipidemia E78.5 Osteoarthritis M19.90 Chronic intractable pain G89.29 History of back surgery Z98.890 Neuropathy G62.9 Obstructive sleep apnea G47.33 Obesity (BMI 30.0-34.9) E66.9 Hypokalemia E87.6 DVT prophylaxis Z29.9
[2020-03-14 06:08] LABS: Estimated Average Glucose 166 mg/dl; Hemoglobin A1C 7.4 % (4.5-5.6)
== END 2020-03-13 15:45 | disposition home or self-care (01) ==
LOC: 3N 09:25 → ED 09:25 → SUATTDRO 12:42 → 3N 15:25

== ENCOUNTER 2020-07-17 13:04 | Inpatient (IN) ==
--- NOTE | 2020-07-17 14:05 | Emergency Department Note ---
History of Present Illness General Chief complaint: Fall Stated complaint: weakness Time Seen by Provider: 07/17/20 13:44 Source: patient History of Present Illness Provider complaint: Generalized weakness Onset (ago): week(s) Location: upper extremity and lower extremity Severity: severe Pain Consistency: + constant Quality: + other (Weak) Relieved By: + none Associated symptoms: + weakness; no chest pain, no cough, no fever/chills, no headaches, no nausea/vomiting, no shortness of breath and no syncope This is an 85-year-old male who is presenting to the emergency department for generalized weakness for the past week and requesting placement in a [facility]cc. Patient states he has been dealing with weakness for about 5 years. Over the past week he has gotten much worse. He is no longer able to use his walker. He was unable to see his doctor 2 days ago because he could not get to the appointment. His has been caring for him using a transfer chair but he is now so weak he can even get into the transfer chair. He states that he fell a week ago while getting out of the shower but did not injure himself. He states that he has fallen several times but has managed to brace himself and not injure himself in any way. He denies any head injury or headache. He denies any fever, cough or cold symptoms, chest pain, shortness of breath, abdominal pain, diarrhea, black or bloody stools, urinary symptoms or known exposure to COVID- 19. Home Medications Home Medications Medication Instructions Recorded Confirmed Type latanoprost 0.005 % eye drops 1 drops OP HS 09/11/18 07/17/20 History bupivacaine 0.25 % (2.5 mg/mL) See Rx Instructions .ROUTE 05/18/19 07/17/20 Rx injection solution .COMPLEX #50 ml aspirin 81 mg tablet,delayed 81 mg PO PM 09/09/19 07/17/20 History release gemfibrozil [Lopid] 300 mg PO QDL 10/30/19 07/17/20 History glipizide 10 mg tablet, extended 10 mg PO BID #180 tab 11/02/19 07/17/20 Rx release 24 hr Pain Pump See Rx Instructions .ROUTE .COMPLEX 11/09/19 07/17/20 History ezetimibe 10 mg tablet 10 mg PO QPM #90 tab 02/04/20 07/17/20 Rx pregabalin 150 mg capsule 150 mg PO BID #180 cap 02/04/20 07/17/20 Rx allopurinol 300 mg tablet 300 mg PO QAM #90 tab 06/20/20 07/17/20 Rx pantoprazole [Protonix] 40 mg PO PM 07/17/20 07/17/20 History silodosin [Rapaflo] 8 mg PO PM 07/17/20 07/17/20 History solifenacin [Vesicare] 5 mg PO PM 07/17/20 07/17/20 History spironolactone 50 mg PO QDL 07/17/20 07/17/20 History zolpidem [Ambien] 5 mg PO HS 07/17/20 07/17/20 History Allergies Allergy/AdvReac Type Severity Reaction Status Date / Time hydrochlorothiazide Allergy Severe Hives Verified 07/17/20 14:13 Iodinated Contrast Media Allergy Severe Convulsions Verified 07/17/20 14:13 adhesive Allergy Intermediate RASH;PULLS Verified 07/17/20 14:13 SKIN OFF levofloxacin Allergy Mild HIVES, Verified 07/17/20 14:13 PRURITIS NSAIDS (Non-Steroidal Allergy Mild Elevated BP Verified 07/17/20 14:13 Anti-Inflamma amiodarone Allergy Unknown RASH Verified 07/17/20 14:13 cephalexin Allergy Unknown AFTER 14 Verified 07/17/20 14:13 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 Bdnkuia-Ycr-Iju Reductase Allergy Unknown Unknown Verified 07/17/20 14:13 Inhibitor terazosin [From Hytrin] Allergy Unknown Unknown Verified 07/17/20 14:13 doxycycline AdvReac Severe Severe Verified 07/17/20 14:13 stomach pain, headaches Cephalosporins AdvReac Intermediate nausea Verified 07/17/20 14:13 after repeated dose nifedipine AdvReac Intermediate Sick to Verified 07/17/20 14:13 stomach atorvastatin AdvReac Unknown MUSCLE Verified 07/17/20 14:13 ACHES Past Med/Surg History Medical History (Updated 07/17/20 @ 16:51 by Mariano Miner MD) Cataracts, bilateral Falls Glaucoma History of heart attack History of skin cancer Incisional hernia Lumbar postlaminectomy syndrome Lung nodule Tinnitus of both ears Umbilical hernia 2007 Surgical History H/O umbilical hernia repair History of appendectomy 1947 History of back surgery x4 laminectomy 1984; AL Fusion L5-S1 1988; L4, L5 S1 [id number]; History of carpal tunnel surgery History of cataract surgery S/P CABG x 3 S/P triple vessel bypass 2001 Status post left foot surgery Status post right partial knee replacement partial 2005 Surgery, elective Neurol drug infusion implantation of programmable pump 2010 Family History Mother Stroke Coronary heart disease Hypertension Osteoarthritis Rheumatoid arthritis Heart disease Father Coronary heart disease Heart disease Sister Familial tremor Grandfather Heart disease Uncle Heart disease Other Family history non-contributory Social History Smoking Status: Former smoker Tobacco Type: Cigarettes Second Hand Exposure: No; Hx Alcohol Use: No Hx Substance Use: No Preferred Language: Korean Communication Ability: Effective Visual Impairment: Limited Hearing Ability: Normal 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 and A total of 10 systems reviewed and were otherwise negative Physical Exam Vital Signs Vital Signs - 24 hr 07/17/20 13:10 07/17/20 13:20 Temperature 37.0 C Temperature Source Oral Pulse Rate 98 H Respiratory Rate 20 Respiratory Effort / Characteristics Non-Labored Spontaneous Respiratory Depth Normal Respiratory Pattern Regular Blood Pressure 165/83 H Blood Pressure Mean 110 Pulse Oximetry 90 95 Oxygen Delivery Method Room Air Room Air Oxygen Flow Rate 2 Sepsis Recent Fever Within 48 Hours No Sepsis New/Unexplained Change in Mental Status N/A Sepsis Action Taken by Nursing No Action Required Constitutional: Vital signs reviewed. Eyes: Pupils are equal round reactive to light. Conjunctiva are noninjected. ENT: Pharynx is clear without erythema or exudate. Mucous membranes are dry. Neck supple without meningeal signs. Respiratory: Clear to auscultation bilaterally. Breath sounds are equal bilaterally. Cardiovascular: Regular rate and rhythm. No rubs or gallops. GI: Soft, nondistended and nontender. Bowel sounds are present. Musculoskeletal: No peripheral edema. No lower extremity tenderness. Integumentary: No cyanosis. or jaundice. Neurological: The patient is awake and alert. No focal deficits. Motor and sensation are intact throughout the extremities. No weakness is detected in the legs. Psychiatric: Normal affect. Not anxious appearing. Course Administered Medications Discontinued Medications Sodium Chloride (Nss) 500 mls @ 999 mls/hr IV .Q31M GRAYSON Stop: 07/17/20 14:45 Last Admin: 07/17/20 15:03 Dose: 999 mls/hr Documented by: [id number] Piperacillin Sod/Tazobactam Sod (Zosyn) 4.5 gm in 120 mls @ 240 mls/hr IV NOW ONE Stop: 07/17/20 15:11 Last Admin: 07/17/20 16:03 Dose: 240 mls/hr Documented by: [id number] Medical Decision Making Differential Diagnosis Generalized weakness, anemia, UTI, pneumonia, dehydration, metabolic derangement Medical Records Attestation: I reviewed the patient's medical records. The patient had a telephone interview with his doctor on July 15 where they discussed his progressive weakness and talked about placing him in a mcc. Home Medications Current Medication List: was personally reviewed by me Laboratory Data Attestation: I reviewed the patient's lab results. Result diagrams: 07/17/20 14:11 07/17/20 14:11 Lab Results 07/17/20 07/17/20 07/17/20 Range/Units 14:11 14:11 14:11 WBC 20.53 H (4.8-10.8) K/uL RBC 4.63 L (4.7-6.1) M/uL Hgb 14.8 (14.0-18.0) g/dL Hct 45.7 (42-52) % MCV 98.7 (80-100) fL MCH 32.0 (25-34) pg MCHC 32.4 (32-36) g/dL RDW Std Deviation 49.7 H (36.4-46.3) fL RDW Coeff of Jennifer 13.9 (11.5-14.5) % Plt Count 173 (130-400) K/uL MPV 12.2 H (7.4-10.4) fL Immature Gran % (Auto) 0.3 % Neut % (Auto) 62.4 % Lymph % (Auto) 32.3 % [place] % (Auto) 4.4 % Eos % (Auto) 0.3 % Baso % (Auto) 0.3 % Neut # (Auto) 12.78 H (1.4-6.5) K/uL Lymph # (Auto) 6.63 H (1.2-3.4) K/uL [place] # (Auto) 0.91 H (0.11-0.59) K/uL Eos # (Auto) 0.07 (0-0.5) K/uL Baso # (Auto) 0.07 (0-0.2) K/uL Immature Gran # (Auto) 0.07 H (0.00-0.02) K/uL Sodium Cancelled 138 Potassium Cancelled 4.0 Chloride Cancelled 105 Carbon Dioxide Cancelled 26 Anion Gap Cancelled 7.0 BUN Cancelled 16 Creatinine Cancelled 1.30 Est Cr Clr Drug Dosing Cancelled 21.7 Est GFR ( Amer) Cancelled 57.7 Est GFR (Non-Af Amer) Cancelled 49.8 BUN/Creatinine Ratio Cancelled 12.3 Glucose Cancelled 265 H Lactate (0.4-2.0) mmol/L Calcium Cancelled 8.6 Magnesium 1.8 (1.8-2.4) mg/dl Total Bilirubin Cancelled 0.9 AST Cancelled 15 ALT Cancelled 28 Alkaline Phosphatase Cancelled 68 Troponin I < 0.015 (0-0.045) ng/ml Total Protein Cancelled 6.7 Albumin Cancelled 3.2 L Globulin Cancelled 3.5 Albumin/Globulin Ratio Cancelled 0.9 Procalcitonin (0-0.5) ng/ml TSH 0.481 (0.300-4.500) uIu/ml COVID-19 Eval Order COVID-19 PCR (Negative) Influ A Molecular Assay (Negative) Influ B Molecular Assay (Negative) 07/17/20 07/17/20 07/17/20 Range/Units 14:50 14:50 14:50 WBC (4.8-10.8) K/uL RBC (4.7-6.1) M/uL Hgb (14.0-18.0) g/dL Hct (42-52) % MCV (80-100) fL MCH (25-34) pg MCHC (32-36) g/dL RDW Std Deviation (36.4-46.3) fL RDW Coeff of Jennifer (11.5-14.5) % Plt Count (130-400) K/uL MPV (7.4-10.4) fL Immature Gran % (Auto) % Neut % (Auto) % Lymph % (Auto) % [place] % (Auto) % Eos % (Auto) % Baso % (Auto) % Neut # (Auto) (1.4-6.5) K/uL Lymph # (Auto) (1.2-3.4) K/uL [place] # (Auto) (0.11-0.59) K/uL Eos # (Auto) (0-0.5) K/uL Baso # (Auto) (0-0.2) K/uL Immature Gran # (Auto) (0.00-0.02) K/uL Sodium Potassium Chloride Carbon Dioxide Anion Gap BUN Creatinine Est Cr Clr Drug Dosing Est GFR ( Amer) Est GFR (Non-Af Amer) BUN/Creatinine Ratio Glucose Lactate (0.4-2.0) mmol/L Calcium Magnesium (1.8-2.4) mg/dl Total Bilirubin AST ALT Alkaline Phosphatase Troponin I (0-0.045) ng/ml Total Protein Albumin Globulin Albumin/Globulin Ratio Procalcitonin (0-0.5) ng/ml TSH (0.300-4.500) uIu/ml COVID-19 Eval Order Covid19 Done at [facility] COVID-19 PCR NEGATIVE (Negative) Influ A Molecular Assay Negative (Negative) Influ B Molecular Assay Negative (Negative) 07/17/20 07/17/20 Range/Units 15:07 15:07 WBC (4.8-10.8) K/uL RBC (4.7-6.1) M/uL Hgb (14.0-18.0) g/dL Hct (42-52) % MCV (80-100) fL MCH (25-34) pg MCHC (32-36) g/dL RDW Std Deviation (36.4-46.3) fL RDW Coeff of Jennifer (11.5-14.5) % Plt Count (130-400) K/uL MPV (7.4-10.4) fL Immature Gran % (Auto) % Neut % (Auto) % Lymph % (Auto) % [place] % (Auto) % Eos % (Auto) % Baso % (Auto) % Neut # (Auto) (1.4-6.5) K/uL Lymph # (Auto) (1.2-3.4) K/uL [place] # (Auto) (0.11-0.59) K/uL Eos # (Auto) (0-0.5) K/uL Baso # (Auto) (0-0.2) K/uL Immature Gran # (Auto) (0.00-0.02) K/uL Sodium Potassium Chloride Carbon Dioxide Anion Gap BUN Creatinine Est Cr Clr Drug Dosing Est GFR ( Amer) Est GFR (Non-Af Amer) BUN/Creatinine Ratio Glucose Lactate 1.6 (0.4-2.0) mmol/L Calcium Magnesium (1.8-2.4) mg/dl Total Bilirubin AST ALT Alkaline Phosphatase Troponin I (0-0.045) ng/ml Total Protein Albumin Globulin Albumin/Globulin Ratio Procalcitonin 0.31 (0-0.5) ng/ml TSH (0.300-4.500) uIu/ml COVID-19 Eval Order COVID-19 PCR (Negative) Influ A Molecular Assay (Negative) Influ B Molecular Assay (Negative) Imaging Data Radiologist's Impression: XR chest 1V portable HISTORY: weakness COMPARISON: Chest 03/30/2020. FINDINGS: No pneumothorax. No pleural effusions. The heart remains enlarged. Chronic elevation the right hemidiaphragm. Poststernotomy changes. The left lung is clear. Increased density within the right infrahilar location. This could represent atelectasis or pneumonia. IMPRESSION: 1. Right infrahilar increased density. This could represent atelectasis or pneumonia. 2. Cardiomegaly. ACT 112: Negative or not required by law. Electronically signed by: Patricio Arrdeondo M.D. 07/17/2020 2:34 PM ECG Data Attestation: I personally reviewed and interpreted this ECG as follows: Indication: + weakness Rate (beats per minute): 97 Rhythm: + normal sinus ECG Intervals/blocks: + First degree AV block ECG ST segments: no ST elevation ECG Findings: + Q waves (Inferior); no PVCs Comparison ECG Date: from (March 30, 2020) Change: no significant change MDM Narrative I did evaluate the patient as noted above. I did obtain history from the patient as well as his . He is presenting with generalized weakness which has been worsening over the past week. He is unable to care for himself and his is unable to take care of him as well. He is requesting hospitalization or placement to a mcc. IV access was established. I did place an order for continuous cardiac monitoring. The monitor showed normal sinus rhythm at a rate of 92 bpm. I did order and personally review the patient's 12-lead EKG as described above. He has no evidence of acute ischemia. I did order and personally reviewed the images of the patient's chest x-ray as described above. There appears to be a right lower lobe infiltrate. I did discuss this with the patient. He states that he has had no cough. His interjects that he has been coughing at night. He denies any fever, shortness of breath, chest pain or loss of taste or smell. I did order blood cultures and lactate. I also placed him in respiratory isolation and ordered testing for COVID-19. I did treat him with Zosyn IV after confirming that he has no penicillin allergy and after blood cultures were obtained. I did order a urine analysis. He has not been able to give us a urine sample yet. I did order and review the patient's blood work as noted in the electronic medical record. His white count is over 20,000. Glucose is 265. Lactate and procalcitonin are not elevated. Troponin is negati ve and electrolytes are unremarkable. I did discuss the test results with the patient and his . Covid testing came back negative. He will be hospitalized for further care and evaluation. I did discuss the case with the hospitalist and showcase maker. Impression & Plan Right lower lobe pneumonia, Generalized weakness, Hyperglycemia Discharge Plan Visit Data Chief Complaint: Fall Stated Complaint: weakness ED Provider: Mariano Miner Discharge Problem: Right lower lobe pneumonia, Generalized weakness, Hyperglycemia Patient Disposition: Being Evaluated by Hospitalist Forms Stand Alone Forms: My [facility] Prescriptions Prescriptions: No Action latanoprost 0.005 % drops 1 drops OP HS RF: 0 bupivacaine 0.25 % (2.5 mg/mL) solution See Rx Instructions .ROUTE .COMPLEX Qty: 50 RF: 0 glipizide 10 mg tablet extended release 24hr 10 mg PO BID Qty: 180 RF: 3 ezetimibe [Zetia] 10 mg tablet 10 mg PO QPM Qty: 90 RF: 3 pregabalin [Lyrica] 150 mg capsule 150 mg PO BID Qty: 180 RF: 1 allopurinol [Zyloprim] 300 mg tablet 300 mg PO QAM Qty: 90 RF: 1 aspirin [Adult Low Dose Aspirin] 81 mg tablet,delayed release (DR/EC) 81 mg PO PM RF: 0 Pain Pump See Rx Instructions .ROUTE .COMPLEX RF: 0 pantoprazole [Protonix] 40 mg tablet,delayed release (DR/EC) 40 mg PO PM RF: 0 zolpidem [Ambien] 10 mg tablet 5 mg PO HS RF: 0 spironolactone 50 mg tablet 50 mg PO QDL RF: 0 solifenacin [Vesicare] 5 mg tablet 5 mg PO PM RF: 0 silodosin [Rapaflo] 8 mg capsule 8 mg PO PM RF: 0 gemfibrozil [Lopid] 600 mg tablet 300 mg PO QDL RF: 0 Referrals Referrals: Miles Neil MD [Primary Care Provider] - Discharge Problem: Right lower lobe pneumonia Qualifiers: Pneumonia type: due to unspecified organism Qualified Code(s): J18.9 - Pneumonia, unspecified organism
[2020-07-17] MEDS ORDERED: SODIUM CHLORIDE 0.9% 500 ML IV SCH (14:15)
[2020-07-17 14:30] LABS: Hematocrit (blood only) 45.7 % (42-52); Hemoglobin 14.8 g/dL (14.0-18.0); Mean Corpuscular Hgb Conc 32.4 g/dL (32-36); Mean Corpuscular Volume 98.7 fL (80-100); Mean Platelet Volume 12.2 fL (7.4-10.4); Platelet Count 173 K/uL (130-400); RDW Coefficient of Variation 13.9 % (11.5-14.5); RDW Standard Deviation 49.7 fL (36.4-46.3); Red Blood Count 4.63 M/uL (4.7-6.1); White Blood Count 20.53 K/uL (4.8-10.8)
--- NOTE | 2020-07-17 14:36 | XRay Report ---
XR chest 1V portable HISTORY: weakness COMPARISON: Chest 03/30/2020. FINDINGS: No pneumothorax. No pleural effusions. The heart remains enlarged. Chronic elevation the ri ght hemidiaphragm. Poststernotomy changes. The left lung is clear. Increased density within the right infrahilar location. This could represent atelectasis or pneumonia. IMPRESSION: 1. Right infrahilar increased density. This could represent atelectasis or pneumonia. 2. Cardiomegaly. ACT 112: Negative or not required by law. Electronically signed by: Patricio Arredondo M.D. 07/17/2020 2:34 PM
[2020-07-17] MEDS ORDERED: PIPERACILLIN/TAZOBACTAM 4.5 GM/120 ML BAG IV ONE (14:42)
[2020-07-17] MEDS ORDERED: PIPERACILL/TAZOBAC CONSULT ACTIVE PRN ×2 (14:42→19:07)
[2020-07-17 14:46] LABS: Albumin Level 3.2 gm/dl (3.4-5.0); BUN Creatinine Ratio 12.3 (10-20); Blood Urea Nitrogen 16 mg/dl (7-18); Calcium 8.6 mg/dl (8.5-10.1); Carbon Dioxide 26 mmol/L (21-32); Chloride 105 mmol/L (98-107); Creatinine Clr Calc Pharmacy 21.7 ml/min; Est GFR (African American) 57.7; Est GFR (Non-African American) 49.8; Glucose 265 mg/dl (70-99); Magnesium 1.8 mg/dl (1.8-2.4); Sodium 138 mmol/L (136-145)
[2020-07-17 14:57] LABS: Alanine Aminotransferase 28 U/L (12-78); Albumin Globulin Ratio 0.9 (0.9-2); Alkaline Phosphatase 68 U/L (45-117); Aspartate Aminotransferase 15 U/L (15-37); Bilirubin,Total 0.9 mg/dl (0.2-1); Globulin 3.5 gm/dl (2.5-4.0); Thyroid Stimulating Hormone 0.481 uIu/ml (0.300-4.500); Total Protein 6.7 gm/dl (6.4-8.2); Troponin I < 0.015 ng/ml (0-0.045)
[2020-07-17 15:10] LABS: Basophils # (auto) 0.07 K/uL (0-0.2); Basophils % (auto) 0.3 %; Eosinophils # (auto) 0.07 K/uL (0-0.5); Eosinophils % (auto) 0.3 %; Immature Granulocytes # (auto) 0.07 K/uL (0.00-0.02); Immature Granulocytes % (auto) 0.3 %; Lymphocytes # (auto) 6.63 K/uL (1.2-3.4); Lymphocytes % (auto) 32.3 %; Monocytes # (auto) 0.91 K/uL (0.11-0.59); Monocytes % (auto) 4.4 %; Neutrophils # (auto) 12.78 K/uL (1.4-6.5); Neutrophils % (auto) 62.4 %
--- NOTE | 2020-07-17 16:25 | History & Physical Report ---
Date of Service July 17, 2020 Assessment & Plan (1) RLL pneumonia: Patient has chronic right basilar infiltrates elevated hemidiaphragm but does have a leukocytosis ptosis. The initial concern is for pneumonia. Patient because of the chronicity of this we will do a noncontrast CT of the chest. Blood cultures have been obtained. The patient will be continued on Zosyn therapy Turn of infectious sources could be Covid which is currently pending but the patient also has a history of urinary outflow obstruction and had a cystoscopy June [address] Brito he is on medications to help with this and urine culture will be ordered (2) CAD (coronary artery disease): Patient has a history of a CABG he is maintained on aspirin, ezetimibe and gemfibrozil (3) Diabetes mellitus type II, controlled: Patient typically is on glipizide 10 twice daily he will be continued on this although his blood glucose is elevated on presentation and level loose sliding scale added to it A1c and glycemic management consult is obtained (4) Urinary outflow obstruction: Continues on Rapaflo and Vesicare with a urine culture and postvoid residual (5) Lumbar spinal stenosis: Patient has a history of postlaminectomy syndrome does have a pain pump he sees pain clinic (6) DVT prophylaxis: lovenox 40 mg sc daily History of Present Illness Primary Care Provider: Miles Neil MD 85-year-old male who has had progressive decline in function over the last few weeks and years who presented to the emergency room due to profound weakness and consideration for longterm placement. We are asked admit the patient for leukocytosis and possible right lower lobe pneumonia. Upon review of his last few admissions he has this persistent right lower lobe changes on his x-ray. He is elevation of the hemidiaphragm also in that area. His previous admissions are very similar with a weakness leukocytosis and treatment for right lower lobe pneumonia although his x-rays did not not seem to clear This then will begin this patient's admission as treatment for possible right lower lobe pneumonia but will do a CT scan without contrast to evaluate for possible positive pneumonic infiltrate. Patient also has a history of bladder outlet obstruction with difficulty voiding and urine infection could be another source. Patient also is currently being tested for Covid. Patient will be assessed for the need for longterm placement with PT OT evaluation after his initial acute illness has been further defined. Allergies Allergy/AdvReac Type Severity Reaction Status Date / Time hydrochlorothiazide Allergy Severe Hives Verified 07/17/20 14:13 Iodinated Contrast Media Allergy Severe Convulsions Verified 07/17/20 14:13 adhesive Allergy Intermediate RASH;PULLS Verified 07/17/20 14:13 SKIN OFF levofloxacin Allergy Mild HIVES, Verified 07/17/20 14:13 PRURITIS NSAIDS (Non-Steroidal Allergy Mild Elevated BP Verified 07/17/20 14:13 Anti-Inflamma amiodarone Allergy Unknown RASH Verified 07/17/20 14:13 cephalexin Allergy Unknown AFTER 14 Verified 07/17/20 14:13 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 Okkfsto-Agu-Sji Reductase Allergy Unknown Unknown Verified 07/17/20 14:13 Inhibitor terazosin [From Hytrin] Allergy Unknown Unknown Verified 07/17/20 14:13 doxycycline AdvReac Severe Severe Verified 07/17/20 14:13 stomach pain, headaches Cephalosporins AdvReac Intermediate nausea Verified 07/17/20 14:13 after repeated dose nifedipine AdvReac Intermediate Sick to Verified 07/17/20 14:13 stomach atorvastatin AdvReac Unknown MUSCLE Verified 07/17/20 14:13 ACHES Home Medications Home Medications Medication Instructions Recorded Confirmed Type latanoprost 0.005 % eye drops 1 drops OP HS 09/11/18 07/17/20 History bupivacaine 0.25 % (2.5 mg/mL) See Rx Instructions .ROUTE 05/18/19 07/17/20 Rx injection solution .COMPLEX #50 ml aspirin 81 mg tablet,delayed 81 mg PO PM 09/09/19 07/17/20 History release gemfibrozil [Lopid] 300 mg PO QDL 10/30/19 07/17/20 History glipizide 10 mg tablet, extended 10 mg PO BID #180 tab 11/02/19 07/17/20 Rx release 24 hr Pain Pump See Rx Instructions .ROUTE .COMPLEX 11/09/19 07/17/20 History ezetimibe 10 mg tablet 10 mg PO QPM #90 tab 02/04/20 07/17/20 Rx pregabalin 150 mg capsule 150 mg PO BID #180 cap 02/04/20 07/17/20 Rx allopurinol 300 mg tablet 300 mg PO QAM #90 tab 06/20/20 07/17/20 Rx pantoprazole [Protonix] 40 mg PO PM 07/17/20 07/17/20 History silodosin [Rapaflo] 8 mg PO PM 07/17/20 07/17/20 History solifenacin [Vesicare] 5 mg PO PM 07/17/20 07/17/20 History spironolactone 50 mg PO QDL 07/17/20 07/17/20 History zolpidem [Ambien] 5 mg PO HS 07/17/20 07/17/20 History Past Med/Surg History Medical History (Updated 07/17/20 @ 16:24 by Mariano Yoon MD) Cataracts, bilateral Falls Glaucoma History of heart attack History of skin cancer Incisional hernia Lumbar postlaminectomy syndrome Lung nodule Tinnitus of both ears Umbilical hernia 2006 Surgical History H/O umbilical hernia repair History of appendectomy 1947 History of back surgery x4 laminectomy 1984; AL Fusion L5-S1 1988; L4, L5 S1 [id number]; History of carpal tunnel surgery History of cataract surgery S/P CABG x 3 S/P triple vessel bypass 2001 Status post left foot surgery Status post right partial knee replacement partial 2005 Surgery, elective Neurol drug infusion implantation of programmable pump 2010 Family History Mother Stroke Coronary heart disease Hypertension Osteoarthritis Rheumatoid arthritis Heart disease Father Coronary heart disease Heart disease Sister Familial tremor Grandfather Heart disease Uncle Heart disease Other Family history non-contributory Social History Smoking Status: Former smoker Tobacco Type: Cigarettes Second Hand Exposure: No; Hx Alcohol Use: No Hx Substance Use: No Preferred Language: Nepali Communication Ability: Effective Visual Impairment: Limited Hearing Ability: Normal Social Insurance Adviser Required: No Beliefs That Will Affect Care: None marital status: Current Living Situation: Spouse current occupational status: retired Feels Safe at Home: Yes Assistive Devices: Glasses, Special Shoe and Walker Review of Systems Review of Systems: Mild distress and fatigue no headache, blurry or double vision no speech or swallowing issues no chest pain, pressure or palpitations no shortness of breath, cough or wheezes no abdominal pain, nausea or vomiting, diarrhea or constipation no dysuria, hematuria or frequency no focal joint pain or swelling no back pain, CVA tenderness or radicular pain no bruising, bleeding or rashes no focal signs of weakness or numbness or altered sensation no complaints of anxiety or depression. Physical Exam Physical Exam: The patient appeared well nourished and normally developed. Vital signs as documented. Head exam is normocephalic atraumatic no scleral icterus Neck is without JVD, thyromegaly, or carotid bruits. Lungs are clear to auscultation, no focal loss of breath sounds Cardiac exam, Rhythm is regular.. No murmurs, rubs or gallops. Abdominal exam reveals normal bowel sounds, soft non tender, no masses Extremities are nonedematous and both pedal pulses are present Neurologic exam is alert and oriented, no focal loss of strength or sensation Skin is without bruises or rashes Psychologically is without concerns for anxiety or depression. Results & Data Results & Data ([facility]) Vital Signs (Past 12 Hours) Vital Signs Temp Pulse Resp BP Pulse Ox 07/17/20 13:20 95 07/17/20 13:10 98.6 F 98 H 20 165/83 H 90 Code Status & VTE Plan VTE Prophylaxis Plan VTE Prophylaxis will be ordered: Yes PG Care Time/CCT Total # of Minutes Spent Total Time Spent with Patient: Total time spent is greater than 50% in coordination of care (as documented) at patient's floor/unit and/or counseling patient: Coding Level of Care Code 42428 Initial Inpt Care Lvl 3 Diagnoses RLL pneumonia J18.9 CAD (coronary artery disease) I25.10 Diabetes mellitus type II, controlled E11.9 Urinary outflow obstruction N13.9 Lumbar spinal stenosis M48.061 DVT prophylaxis Z29.9
[2020-07-17 17:02] LABS: Influenza A virus by PCR Negative (Negative); Influenza B virus by PCR Negative (Negative)
[2020-07-17] MEDS ORDERED: DEXTROSE 50% 50 ML SYRINGE IV PRN (19:07)
[2020-07-17] MEDS ORDERED: BUPIVACAINE SCH (19:07)
[2020-07-17] MEDS ORDERED: ACETAMINOPHEN 325 MG TAB PO PRN (19:07)
[2020-07-17] MEDS ORDERED: ONDANSETRON INJ 2 MG/ML 2 ML VIAL IV PRN (19:07)
[2020-07-17] MEDS ORDERED: POLYETHYLENE (MIRALAX) 17 GM PACK PO PRN (19:07)
[2020-07-17] MEDS ORDERED: GLUCOSE 40% GEL 15 GM TUBE PO PRN (19:07)
[2020-07-17] MEDS ORDERED: GLUCOSE 10 TABS/TUBE PO PRN (19:07)
[2020-07-17] MEDS ORDERED: GLUCAGON FOR INJ 1 MG VIAL SQ PRN (19:07)
[2020-07-17] MEDS ORDERED: CARBOHYDRATES FOR HYPOGLYCEMIA PO PRN (19:07)
[2020-07-17] MEDS ORDERED: BUPIVACAINE INFIL SCH (19:30)
[2020-07-17] MEDS ORDERED: [UNRECOGNIZED DRUG - OTHER] INFIL SCH (19:30)
[2020-07-17] MEDS ORDERED: CLONIDINE INFIL SCH (19:30)
[2020-07-17] MEDS ORDERED: MORPHINE INFIL SCH (19:30)
[2020-07-17] MEDS ORDERED: PHARMACY GLYCEMIC MGMT CONSULT PRN (19:34)
[2020-07-17] MEDS ORDERED: INSULIN GLARGINE SOLOSTAR 100 UNITS/ML 3 ML PEN SC ONE (20:30)
[2020-07-17] MEDS: INSULIN ASPART 100 UNITS/ML 3 ML PEN SC SCH (20:30)
[2020-07-17] MEDS: PANTOprazole 40 MG TAB PO SCH (20:32)
[2020-07-17] MEDS: LATANOPROST 0.005% OP SOLN 2.5 ML BTL OP SCH (20:32)
[2020-07-17] MEDS: ASPIRIN 81 MG ECTAB PO SCH (20:32)
[2020-07-17] MEDS: EZETIMIBE 10 MG TABLET PO SCH (20:32)
--- NOTE | 2020-07-17 20:33 | Pharmacy Report ---
Glycemic Control Consultation - Date of Service July 17, 2020 - Scope Scope: Glycemic Pharmacist consulted for glycemic control and to write orders per [facility] inpatient glycemic control protocol. - Objective Weight: 108.7 kg Accuchecks BSG (last 24hrs): 07/17/20 07/17/20 07/17/20 14:11 14:11 19:49 Glucose Cancelled 265 H POC Glucose 265 H Laboratory Data (last 24hrs): 07/17/20 07/17/20 14:11 14:11 Potassium Cancelled 4.0 Carbon Dioxide Cancelled 26 Anion Gap Cancelled 7.0 Creatinine Cancelled 1.30 Est Cr Clr Drug Dosing Cancelled 21.7 - Recent Pertinent Medications Outpatient Anti-diabetic Regimen: * Glipizide 10 mg PO BID * A1c = 9.4 % (07/13/20) - Assessment & Plan Assessment & Plan: ASSESSMENT: * PD is an 85 year old male admitted with RLL infiltrates (suspected pneumonia) * Currently ordered Zosyn, COVID-19 negative * Patient has history of lumbar spinal stenosis requiring pain pump * History of type 2 DM - HbA1c of 9.4% suggests poor glycemic control as an outpatient * BSG at time of consult is 265 mg/dL - will order one-time Lantus dose of 15 units and utilize Novolog with overnight checks this evening PLAN FOR INPATIENT GLYCEMIC CONTROL: * Holding outpatient oral diabetes medications * Basal insulin * Lantus 15 units SQ x 1 * Reassess basal in AM * Bolus insulin * NovoLog per scale ACHS or Q6hrs while NPO * Goal Range: Low 110 mg/dL - High 150 mg/dL * Correction Factor: 25 mg/dL/unit * Nutritional / Prandial insulin per carb ratio of 1 unit per 8 grams CHO consumed * 00,04 checks with same parameters * Please note that the plan above was derived based on current level of insulin resistance and hospital stress. These recommendations are appropriate for inpatient admission only. Plan of care upon discharge will need to be reassessed to avoid potential outpatient hypo/hyperglycemia. Thank you.
[2020-07-17] MEDS: PREGABALIN 150 MG CAP PO SCH (20:41)
[2020-07-17] MEDS ORDERED: NON-FORMULARY MEDICATION (Glipizide 10 MG) PO SCH (21:00)
[2020-07-17] MEDS: PIPERACILLIN/TAZOBACTAM 3.375 GM in DEXTROSE 5% 100 ML IV SCH (22:22)
[2020-07-17 22:59] LABS: Appearance Urine Cloudy (Clear); Bacteria Urine Automated 2+ (Negative); Bilirubin Urine Negative (Negative); Blood Urine Negative (Negative); Color Urine Yellow; Epithelial Cell Urine Auto 0-5 /lpf (0-5); Glucose Urine UA Negative (Negative); Ketones Urine Negative (Negative); Leukocyte Esterase Urine 2+ (Negative); Nitrite Urine Negative (Negative); Protein Urine 2+ (Negative); RBC Urine Automated 0-4 /hpf (0-4); Specific Gravity Urine 1.025 (1.000-1.030); Urobilinogen Urine Negative (Negative); WBC Urine Automated >30 /hpf (0-5); pH Urine 5.5 (4.5-7.5)
[2020-07-18] MEDS: INSULIN ASPART 100 UNITS/ML 3 ML PEN SC SCH ×6 (00:50→21:44)
[2020-07-18] MEDS: SOLIFENACIN 5 MG SCH ×3 (01:14→15:25)
[2020-07-18] MEDS: SILODOSIN 8 MG SCH ×3 (01:14→15:25)
[2020-07-18] MEDS: PIPERACILLIN/TAZOBACTAM 3.375 GM in DEXTROSE 5% 100 ML IV SCH ×3 (05:07→22:08)
[2020-07-18 06:09] LABS: Hematocrit (blood only) 43.2 % (42-52); Mean Corpuscular Hemoglobin 32.3 pg (25-34); Mean Corpuscular Hgb Conc 32.4 g/dL (32-36); Mean Corpuscular Volume 99.5 fL (80-100); Mean Platelet Volume 11.5 fL (7.4-10.4); Platelet Count 147 K/uL (130-400); RDW Standard Deviation 50.7 fL (36.4-46.3); Red Blood Count 4.34 M/uL (4.7-6.1); White Blood Count 11.86 K/uL (4.8-10.8)
--- NOTE | 2020-07-18 06:22 | Electrocardiogram Report ---
Test Reason : Blood Pressure : / mmHG Vent. 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
[2020-07-18 06:35] LABS: Estimated Average Glucose 226 mg/dl; Hemoglobin A1C 9.5 % (4.5-5.6)
--- NOTE | 2020-07-18 08:53 | Hospitalist Progress Note ---
Date of Service July 18, 2020 Assessment & Plan (1) Acute and chronic respiratory failure with hypoxia: does not wear home oxygen when at home at rest, his oxygen sat on home pulse ox is usually > 88% patient currently wearing 2L and oxygen sat 94% may need home oxygen Present on Admission?: Yes (2) Sepsis: on arrival 10-, tachycardia > 90 and WBC > 20 lactate < 2 sepsis resolving today etiology 2' to UTI follow blood and urine cultures (3) Complicated UTI (urinary tract infection): UA: > 30 WBC, 2+ LE, negative nitrite urine culture pending zosyn should cover UTI (4) Frequent falls: possibly related to spinal stenosis states his legs get weak with walking says he is off balance and has paresthesias at times PT eval and treat Present on Admission?: Yes (5) Lumbar spinal stenosis: likely contributing to falls MRI lumbar spine pending postlaminectomy syndrome pain pump sees pain clinic (6) RLL pneumonia: right infrahilar infiltrate vs atelectasis checking Chest CT COVID negative procal was normal, so unlikely pneumonia (7) CAD (coronary artery disease): S/p CABG Cont aspirin, ezetimibe and gemfibrozil (8) Diabetes mellitus type II, controlled: hold glipizide 10 twice daily glycemic management consult (9) Urinary outflow obstruction: Continues on Rapaflo and Vesicare pending urine culture and postvoid residual cystoscopy 10-[address] Brito (10) DVT prophylaxis: lovenox 40 mg sc daily Admission and Anticipated Discharge Date Admission Date: July 17, 2020 Subjective Patient states that he has been feeling off balance and falling recently, despite using his walker. He fell yesterday and "could not feel his legs" so presented to ER. Currently the numbness or lack of "feeling his legs" has resolved completely today. Denies worsening of his chronic cough, no SOB. Does not wear oxygen at home, but does endorse having oxygen sat 88% when he checks at home. States he takes an over the counter decongestant for his cough, which seems to help. Endorses constipation, states that he "wants to have a BM." Review of Systems Constitutional: no fever, no chills, no fatigue, no weakness, no anorexia, no weight loss and no weight gain Ear, Nose, Mouth, Throat: no nasal congestion, no sore throat and no dysphagia Respiratory: + cough; no dyspnea Cardiovascular: no chest pain, no dyspnea on exertion, no orthopnea and no palpitations Gastrointestinal: + constipation; no abdominal pain, no nausea, no vomiting, no hematemesis, no dysphagia, no diarrhea/loose stools, no blood in stools and no melena Musculoskeletal: no back pain, no joint pain, no myalgia and no muscle weakness Integumentary: no rash, no lesions, no skin ulcer, no erythema, no dry skin and no pruritus Neurologic: no falls, no localized weakness, no generalized weakness, no numbness, no paresthesia, no tremor(s) and no headache(s) Psychiatric: no depression, no suicidal ideation, no homicidal ideation and no anxiety Endocrine: no cold intolerance and no heat intolerance Hematologic / Lymphatic: no easy bleeding and no easy bruising Physical Exam Constitutional: well developed and well nourished; no acute distress Eyes: PERRL, conjunctivae normal, anicteric sclerae ENMT: Mouth: oral mucous membranes not dry Respiratory: normal respiratory effort; no respiratory distress and no labored breathing (on 2L NC) Auscultation: lungs clear to auscultation bilaterally; no crackles, no rales, no rhonchi and no wheezes Cardiovascular: Rate/Rhythm: regular rate and regular rhythm Heart Sounds: no murmur and no cardiac rub Vessels: normal peripheral pulses and radial pulses present; no JVD Extremities: no edema Gastrointestinal (Abdomen): Inspection/Auscultation: abdomen normal to inspection and normal bowel sounds; abdomen not distended Percussion/Palpation: abdomen soft; abdomen nontender, no guarding, abdomen not rigid and no hepatosplenomegaly Musculoskeletal: Head/Neck/Chest: normocephalic and head atraumatic Spine: no cervical spinal tenderness, no cervical muscular tenderness, no thoracic spinal tenderness and no lumbar spinal tenderness Skin: no rashes, warm and dry Neurologic: CN's II-XI intact bilaterally and moves all extremities Motor/Sensory: no tremor and no sensory deficit Psychiatric: Orientation: alert, oriented to person, oriented to place and oriented to time Apperance: appropriately groomed; not disheveled Affect: euthymic affect; no anxious affect and no tearful affect Genitourinary: no Issa catheter Results & Data Results & Data ([facility]) Vital Signs (Past 12 Hours) Vital Signs Temp Pulse Resp BP Pulse Ox 07/18/20 07:07 36.4 C L 65 18 124/80 93 07/17/20 23:03 36.4 C L 72 16 113/76 97 Laboratory Results WBC 11.86 A1c 9.5% CRP 7.4 procalcitonin 0.31 UA > 30 WBC, 2+ bacteria, 2+ LE, negative nitrite, no epis Diagnostic Findings CXR with 1. Right infrahilar increased density. This could represent atelectasis or pneumonia. Cardiomegaly PG Care Time/CCT Total # of Minutes Spent Total Time Spent with Patient: Total time spent is greater than 50% in coordination of care (as documented) at patient's floor/unit and/or counseling patient: Coding Level of Care Code 09744 Subseq Hosp Care Lvl 3 Diagnoses Acute and chronic respiratory failure with hypoxia J96.21 Sepsis A41.9 Sepsis acute organ dysfunction status: without acute organ dysfunction Sepsis type: sepsis due to unspecified organism Complicated UTI (urinary tract infection) N39.0 Frequent falls R29.6 Lumbar spinal stenosis M48.061 Neurogenic claudication status: unspecified RLL pneumonia J18.9 Pneumonia type: due to unspecified organism CAD (coronary artery disease) I25.10 Associated angina: without angina Coronary Disease-Associated Artery/Lesion type: [place] artery [place] vs. 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 transplanted heart: [place] heart Qualified Code(s): I25.10 - Atherosclerotic heart disease of [place] coronary artery without angina pectoris (3) Diabetes mellitus type II, controlled Diabetes mellitus complication detail: with other circulatory complications Diabetes mellitus complication status: with circulatory complication Diabetes mellitus intermediate insulin use: unspecified rat exterminator insulin use status Qualified Code(s): E11.59 - Type 2 diabetes mellitus with other circulatory complications (4) Sepsis Sepsis acute organ dysfunction status: without acute organ dysfunction Sepsis type: sepsis due to unspecified organism Qualified Code(s): A41.9 - Sepsis, unspecified organism (5) RLL pneumonia Pneumonia type: due to unspecified organism Qualified Code(s): J18.9 - Pneumonia, unspecified organism
[2020-07-18] MEDS ORDERED: ENOXAPARIN INJ 30 MG/0.3 ML SYR SQ SCH (09:00)
[2020-07-18] MEDS: allopurinoL 300 MG TAB PO SCH (09:07)
[2020-07-18] MEDS: ENOXAPARIN INJ 40 MG/0.4 ML SYR SQ SCH (09:09)
[2020-07-18] MEDS: PREGABALIN 150 MG CAP PO SCH ×2 (09:16→21:39)
--- NOTE | 2020-07-18 12:04 | Pharmacy Report ---
Pharmacy Glycemic Short Note 2 - Date of Service July 18, 2020 - Glycemic Short BSG Results (Last 24 hours): OUTPATIENT ANTIDIABETIC REGIMEN: * Glipizide 10 mg PO BID * A1c = 9.5% (07/18/20) ASSESSMENT: 07/18: * Received 15 units of Lantus and 18 units of Novolog yesterday * Fasting BSG was 167 mg/dL this morning - slightly above goal * I have tightened patient's CF/CR this morning. Will also plan to increase Lantus dose this evening 07/17: * PD is an 85 year old male admitted with RLL infiltrates (suspected pneumonia) * Currently ordered Zosyn, COVID-19 negative * Patient has history of lumbar spinal stenosis requiring pain pump * History of type 2 DM - HbA1c of 9.4% suggests poor glycemic control as an outpatient * BSG at time of consult is 265 mg/dL - will order one-time Lantus dose of 15 units and utilize Novolog with overnight checks this evening PLAN FOR INPATIENT GLYCEMIC CONTROL: * Hold outpatient oral diabetes medications * Basal insulin - increased * Lantus 20 units SQ HS * Bolus insulin - tightened CF/CR/Goal Range * NovoLog per scale ACHS or Q6hrs while NPO * Goal Range: Low 110 mg/dL - High 140 mg/dL * Correction Factor: 20 mg/dL/unit * Nutritional / Prandial insulin per carb ratio of 1 unit per 7 grams CHO consumed PLAN FOR DISCHARGE: *
[2020-07-18] MEDS: gemfibroziL 600 MG TAB PO SCH (12:17)
[2020-07-18] MEDS ORDERED: POLYETHYLENE (MIRALAX) 17 GM PACK PO PRN (16:02)
[2020-07-18] MEDS: PANTOprazole 40 MG TAB PO SCH (21:39)
[2020-07-18] MEDS: LATANOPROST 0.005% OP SOLN 2.5 ML BTL OP SCH (21:39)
[2020-07-18] MEDS: ASPIRIN 81 MG ECTAB PO SCH (21:39)
[2020-07-18] MEDS: EZETIMIBE 10 MG TABLET PO SCH (21:39)
[2020-07-18] MEDS: INSULIN GLARGINE SOLOSTAR 100 UNITS/ML 3 ML PEN SC SCH (21:44)
[2020-07-19] MEDS: SILODOSIN 8 MG SCH ×3 (00:31→23:07)
[2020-07-19] MEDS: SOLIFENACIN 5 MG SCH ×3 (00:31→23:07)
[2020-07-19] MEDS: PIPERACILLIN/TAZOBACTAM 3.375 GM in DEXTROSE 5% 100 ML IV SCH (06:04)
[2020-07-19 06:33] LABS: Hematocrit (blood only) 43.9 % (42-52); Hemoglobin 14.4 g/dL (14.0-18.0); Mean Corpuscular Hemoglobin 32.4 pg (25-34); Mean Corpuscular Hgb Conc 32.8 g/dL (32-36); Mean Corpuscular Volume 98.9 fL (80-100); Mean Platelet Volume 11.7 fL (7.4-10.4); Platelet Count 173 K/uL (130-400); RDW Standard Deviation 49.7 fL (36.4-46.3); Red Blood Count 4.44 M/uL (4.7-6.1)
[2020-07-19 06:34] LABS: BUN Creatinine Ratio 12.7 (10-20); Calcium 9.1 mg/dl (8.5-10.1); Creatinine Clr Calc Pharmacy 42.9 ml/min; Est GFR (African American) 51.4; Est GFR (Non-African American) 44.3
--- NOTE | 2020-07-19 08:28 | Magnetic Resonance Report ---
LUMBAR SPINE MRI HISTORY: leg weakness TECHNIQUE: Multiplanar multisequence MRI of the lumbar spine was performed without the use of contras t. COMPARISON: Lumbar spine MRI 10/21/2017. FINDINGS: For the purpose of the report the L5-S1 disc space will be located on axial image 23 of 25. Straightening of the lumbar spine. Alignment remains intact. There is posterior decompression and fus ion from L4 through S1 with pedicle screws and rods. The vertebral bodies at these levels are fused. There is severe disc space narrowing at L3-L4 and L2-L3. This is similar to the prior study. The conu s terminates at the L1 level. There is intrathecal catheter entering the L2-L3 interlaminar space and extending cephalad in the central canal. This appears to terminate at approximately the T11 level. L arge bilateral renal T2 hyperintense, T1 hypointense lesions are again noted. These are incompletely characterized on this noncontrast study but favor cysts. The largest on the right measures 14 cm. No fractures within the lumbar spine. The bladder is distended and contains multiple small diverticula. This is also unchanged. L1-L2: Severe ligamentum and facet hypertrophy resulting in [id number] central canal narrowing. No significant neural foraminal narrowing. There is also small broad-based posterior disc bulge. Thi s remains unchanged. L2-L3: Broad-based posterior disc bulge with ligamentum and facet hypertrophy resulting in moderate t o severe central canal and moderate bilateral neural foraminal narrowing. L3-L4: Small broad-based posterior disc bulge with facet hypertrophy resulting in moderate central ca nal and mild to moderate bilateral neural foraminal narrowing. L4-L5: No significant central canal narrowing due to the posterior decompression. There is mild-to-mo derate bilateral neural foraminal narrowing. L5-S1: No significant central canal narrowing due to the posterior decompression. There is mild bilat eral neural foraminal narrowing. IMPRESSION: 1. Postsurgical changes at the L4-S1 levels. 2. Multilevel lumbar spondylosis most pronounced at the L2-L3 and L3-L4 levels which demonstrates junior tral canal or neural foraminal narrowing as described above. 3. Distended bladder with multiple small diverticula. 4. Bilateral renal T2 hyperintense lesions with the largest on the right measuring 14 cm. These are i ncompletely characterized on this noncontrast study but favor cysts. These are similar to the prior s tudy. ACT 112: Negative or not required by law. Electronically signed by: Patricio Arredondo M.D. 07/19/2020 8:27 AM
--- NOTE | 2020-07-19 09:38 | Hospitalist Progress Note ---
Date of Service July 19, 2020 Assessment & Plan (1) Complicated UTI (urinary tract infection): UA: > 30 WBC, 2+ LE, negative nitrite urine culture pending zosyn should cover UTI (2) Lumbar spinal stenosis: likely contributing to falls MRI lumbar spine with spinal stenosis L1 - L4 mild - severe has pain pump in place will call ortho spine in morning to discuss need for surgery for L1-L4 stenosis (3) Frequent falls: possibly related to spinal stenosis states his legs get weak with walking says he is off balance and has paresthesias at times PT recommending home with home health (4) Scarring of lung: Chest CT without pneumonia scarring present procal normal (5) Acute and chronic respiratory failure with hypoxia: does not wear home oxygen, off oxygen today currently 90% on room air will perform ambulatory oxygen test when at home at rest, his oxygen sat on home pulse ox is usually > 88% (6) Dementia: needs help taking care of patient at home states patient has known diagnosis of dementia (7) Sepsis: resolved etiology 2' to UTI follow blood and urine cultures (8) CAD (coronary artery disease): S/p CABG Cont aspirin, ezetimibe and gemfibrozil (9) Diabetes mellitus type II, controlled: hold glipizide 10 twice daily glycemic management consult (10) Urinary outflow obstruction: Continues on Rapaflo and Vesicare pending urine culture and postvoid residual cystoscopy 10-[address] Brito (11) DVT prophylaxis: lovenox 40 mg sc daily Discussing with caseworker protective services, patient's . Self pay options provided to . She strongly prefers an inpatient facility. Otherwise states she needs 24-7 help with taking care of patient at home. Admission and Anticipated Discharge Date Admission Date: July 17, 2020 Subjective Patient did not sleep well due to having MRI late last night. Patient states his legs get weak the farther he walks. The weakness improves with rest. Has occasional cough when laying flat and during nighttime. No dysuria, no abdominal pain, no chest pain, no headache. No back pain. Off oxygen this morning. PT says patient can go home with home PT, but patient wants to go to a rehab facility. Discussed at length with patient and his at bedside. She can not take care of him. He is falling frequently. Review of Systems Constitutional: no fever, no chills, no fatigue, no weakness, no anorexia, no weight loss and no weight gain Ear, Nose, Mouth, Throat: no nasal congestion, no sore throat and no dysphagia Respiratory: + cough; no dyspnea Cardiovascular: no chest pain, no dyspnea on exertion, no orthopnea and no palpitations Gastrointestinal: + constipation; no abdominal pain, no nausea, no vomiting, no hematemesis, no dysphagia, no diarrhea/loose stools, no blood in stools and no melena Musculoskeletal: no back pain, no joint pain, no myalgia and no muscle weakn ess Integumentary: no rash, no lesions, no skin ulcer, no erythema, no dry skin and no pruritus Neurologic: no falls, no localized weakness, no generalized weakness, no numbness, no paresthesia, no tremor(s) and no headache(s) Psychiatric: no depression, no suicidal ideation, no homicidal ideation and no anxiety Endocrine: no cold intolerance and no heat intolerance Hematologic / Lymphatic: no easy bleeding and no easy bruising Physical Exam Constitutional: well developed and well nourished; no acute distress Eyes: PERRL, conjunctivae normal, anicteric sclerae ENMT: Mouth: oral mucous membranes not dry Respiratory: normal respiratory effort; no respiratory distress and no labored breathing (on 2L NC) Auscultation: lungs clear to auscultation bilaterally; no crackles, no rales, no rhonchi and no wheezes Cardiovascular: Rate/Rhythm: regular rate and regular rhythm Heart Sounds: no murmur and no cardiac rub Vessels: normal peripheral pulses and radial pulses present; no JVD Extremities: no edema Gastrointestinal (Abdomen): Inspection/Auscultation: abdomen normal to inspection and normal bowel sounds; abdomen not distended Percussion/Palpation: abdomen soft; abdomen nontender, no guarding, abdomen not rigid and no hepatosplenomegaly Musculoskeletal: Head/Neck/Chest: normocephalic and head atraumatic Spine: no cervical spinal tenderness, no cervical muscular tenderness, no thoracic spinal tenderness and no lumbar spinal tenderness Skin: no rashes, warm and dry Neurologic: CN's II-XI intact bilaterally and moves all extremities Motor/Sensory: + tremor; no sensory deficit Psychiatric: Orientation: alert, oriented to person, oriented to place and oriented to time Apperance: appropriately groomed; not disheveled Affect: euthymic affect; no anxious affect and no tearful affect Results & Data Results & Data ([facility]) Vital Signs (Past 12 Hours) Vital Signs Temp Pulse Resp BP Pulse Ox 07/19/20 07:46 36.4 C L 76 18 139/82 90 07/18/20 23:37 36.9 C 77 16 161/97 H 93 Laboratory Results WBC 13.7 up from 11.2 yesterday Cr 1.43 up from 1.3 yesterday and 1.2 on 07-13 Blood cultures negative Urine culture pending Diagnostic Findings MRI lumbar spine IMPRESSION: 1. Postsurgical changes at the L4-S1 levels. 2. Multilevel lumbar spondylosis most pronounced at the L2-L3 and L3-L4 levels which demonstrates central canal or neural foraminal narrowing as described above. 3. Distended bladder with multiple small diverticula. 4. Bilateral renal T2 hyperintense lesions with the largest on the right measur ing 14 cm. These are incompletely characterized on this noncontrast study but favor cysts. These are similar to the prior study. PG Care Time/CCT Total # of Minutes Spent Total Time Spent with Patient: Total time spent is greater than 50% in coordination of care (as documented) at patient's floor/unit and/or counseling patient: Coding Level of Care Code 45020 Subseq Hosp Care Lvl 3 Diagnoses Complicated UTI (urinary tract infection) N39.0 Lumbar spinal stenosis M48.061 Neurogenic claudication status: unspecified Frequent falls R29.6 Scarring of lung J98.4 Acute and chronic respiratory failure with hypoxia J96.21 Dementia F03.90 Dementia type: unspecified type Dementia behavioral disturbance: without behavioral disturbance Sepsis A41.9 Sepsis acute organ dysfunction status: without acute organ dysfunction Sepsis type: sepsis due to unspecified organism CAD (coronary artery disease) I25.10 Associated angina: without angina Coronary Disease-Associated Artery/Lesion type: [place] artery [place] vs. 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 transplanted heart: [place] heart Qualified Code(s): I25.10 - Atherosclerotic heart disease of [place] coronary artery without angina pectoris (3) Diabetes mellitus type II, controlled Diabetes mellitus complication detail: with other circulatory complications Diabetes mellitus complication status: with circulatory complication Diabetes mellitus residential insulin use: unspecified residential insulin use status Qualified Code(s): E11.59 - Type 2 diabetes mellitus with other circulatory complications (4) Sepsis Sepsis acute organ dysfunction status: without acute organ dysfunction Sepsis type: sepsis due to unspecified organism Qualified Code(s): A41.9 - Sepsis, unspecified organism (5) Dementia Dementia type: unspecified type Dementia behavioral disturbance: without behavioral disturbance Qualified Code(s): F03.90 - Unspecified dementia without behavioral disturbance
[2020-07-19] MEDS: ENOXAPARIN INJ 40 MG/0.4 ML SYR SQ SCH (09:53)
[2020-07-19] MEDS: DOCUSATE SODIUM/SENNA 50/8.6MG TAB PO SCH (09:53)
[2020-07-19] MEDS: allopurinoL 300 MG TAB PO SCH (09:53)
[2020-07-19] MEDS: PREGABALIN 150 MG CAP PO SCH ×2 (09:55→20:50)
[2020-07-19] MEDS: INSULIN ASPART 100 UNITS/ML 3 ML PEN SC SCH ×4 (09:58→20:52)
--- NOTE | 2020-07-19 10:09 | Pharmacy Report ---
Pharmacy Glycemic Short Note 2 - Date of Service July 19, 2020 - Glycemic Short BSG Results (Last 24 hours): 07/18/20 07/18/20 07/18/20 12:11 17:17 20:33 Glucose POC Glucose 191 H 174 H 176 H 07/19/20 07/19/20 05:48 08:15 Glucose 167 H POC Glucose 208 H OUTPATIENT ANTIDIABETIC REGIMEN: * Glipizide 10 mg PO BID * A1c = 9.5% (07/18/20) ASSESSMENT: 07/19: * Basilio received 52 units of insulin yesterday * 20 units of basal + 32 units of bolus * BSGs were: 074-503-347-174-176 mg/dL - uncontrolled * Fasting BSG was 208 mg/dL this AM - uncontrolled * Unsure of cause of this fasting hyperglycemia. Considering an isolated event. Will await lunchtime BSG prior to adjusting any basal insulin dose. * Lunchtime BSG was 166 mg/dL. No adjustment will be made to basal/bolus regimen at this time. 07/18: * Received 15 units of Lantus and 18 units of Novolog yesterday * Fasting BSG was 167 mg/dL this morning - slightly above goal * I have tightened patient's CF/CR this morning. Will also plan to increase Lantus dose this evening 07/17: * PD is an 85 year old male admitted with RLL infiltrates (suspected pneumonia) * Currently ordered Zosyn, COVID-19 negative * Patient has history of lumbar spinal stenosis requiring pain pump * History of type 2 DM - HbA1c of 9.4% suggests poor glycemic control as an outpatient * BSG at time of consult is 265 mg/dL - will order one-time Lantus dose of 15 units and utilize Novolog with overnight checks this evening PLAN FOR INPATIENT GLYCEMIC CONTROL: * Hold outpatient oral diabetes medications * Basal insulin - no change * Lantus 20 units SQ HS * Bolus insulin - no change * NovoLog per scale ACHS or Q6hrs while NPO * Goal Range: Low 110 mg/dL - High 140 mg/dL * Correction Factor: 20 mg/dL/unit * Nutritional / Prandial insulin per carb ratio of 1 unit per 7 grams CHO consumed PLAN FOR DISCHARGE: * HbA1c was 9.5% on 07/18/2020. This demonstrates poor outpatient control of T2DM on Glipizide monotherapy. Goal HbA1c for this patient would be less than 8.0% based on his age and comorbidities. * Hesitant to add insulin given patient's age. If patient was to be discharged to a SNF, then would recommend basal-bolus insulin regimen. Will await more stability in BSGs prior to giving recommendations. * Metformin could be considered but patient's eGFR is borderline at ~ 45 mL/min/1.73 m2. * Patient does admit to poor dietary habits and decreased physical activity since the pandemic. HbA1c may improve with better dietary choices in the future.
[2020-07-19] MEDS ORDERED: INFLUENZA ADMINISTRATION CHARGE ONE (10:30)
[2020-07-19] MEDS ORDERED: INFLUENZA VIRUS QUAD VACCINE 0.5 ML SYR IM ONE (10:30)
[2020-07-19] MEDS: gemfibroziL 600 MG TAB PO SCH (13:10)
[2020-07-19] MEDS: PIPERACILLIN/TAZOBACTAM 4.5 GM in DEXTROSE 5% 100 ML IV SCH ×2 (13:15→21:36)
--- NOTE | 2020-07-19 13:49 | CT Scan Report ---
CT chest wo con CLINICAL HISTORY: abnormal cxr RIGHT LOWER LOBE LESION COMPARISON STUDY: Chest x-ray dated 07/17/2020, CT scan performed January 2018 CT DOSE: 735.52 mGycm TECHNIQUE: CT of the thorax was performed from the thoracic inlet to the lung bases. Images are revi ewed in the axial, sagittal, and coronal planes. IV contrast was not administered for this examinatio n. A dose lowering technique was utilized adhering to the principles of ALARA. FINDINGS: Thyroid: Imaged portions of the thyroid gland are normal in appearance. 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 Heart: There are coronary artery calcifications. There is no pericardial effusion Lungs and pleural spaces: There are no pleural effusions. There is marked improvement in the previous ly described airspace opacities involving the right upper and lower lobes. Minimal residua, likely re presents scarring. Mediastinum: Mediastinal lymph nodes remaining at the upper limits of normal in size. [place]: There is no pathologic hilar adenopathy given the limitations of a noncontrast study. Axilla: There is no evidence of pathologic axillary lymphadenopathy Upper abdomen: Cholelithiasis Skeletal structures: No destructive skeletal lesions are visualized. There is a indwelling intraspina l catheter There is moderate elevation/eventration of the right hemidiaphragm IMPRESSION: 1. Moderate elevation/eventration of the right hemidiaphragm 2. Marked interval improvement in the previously identified right upper lobe and right lower lobe air space opacities. Residual opacities while nonspecific likely represent postinflammatory scarring 3. Cholelithiasis ACT 112: Negative or not required by law. Electronically signed by: Juan Jose Atkins M.D. 07/19/2020 1:48 PM
[2020-07-19] MEDS ORDERED: SOLIFENACIN SUCCINATE 5 MG PO SCH (16:30)
[2020-07-19] MEDS: SILODOSIN 8 MG CAP PO SCH (17:42)
[2020-07-19] MEDS: PANTOprazole 40 MG TAB PO SCH (20:50)
[2020-07-19] MEDS: EZETIMIBE 10 MG TABLET PO SCH (20:50)
[2020-07-19] MEDS: ASPIRIN 81 MG ECTAB PO SCH (20:50)
[2020-07-19] MEDS: LATANOPROST 0.005% OP SOLN 2.5 ML BTL OP SCH (20:50)
[2020-07-19] MEDS: INSULIN GLARGINE SOLOSTAR 100 UNITS/ML 3 ML PEN SC SCH (20:53)
[2020-07-20] MEDS: PIPERACILLIN/TAZOBACTAM 4.5 GM in DEXTROSE 5% 100 ML IV SCH ×3 (05:14→21:50)
[2020-07-20] MEDS: ENOXAPARIN INJ 40 MG/0.4 ML SYR SQ SCH (08:58)
[2020-07-20] MEDS: allopurinoL 300 MG TAB PO SCH (08:59)
[2020-07-20] MEDS: INSULIN ASPART 100 UNITS/ML 3 ML PEN SC SCH ×4 (09:03→21:51)
[2020-07-20] MEDS: DOCUSATE SODIUM/SENNA 50/8.6MG TAB PO SCH (09:08)
[2020-07-20] MEDS: PREGABALIN 150 MG CAP PO SCH ×2 (09:08→21:50)
[2020-07-20 09:13] LABS: Hematocrit (blood only) 47.1 % (42-52); Hemoglobin 15.3 g/dL (14.0-18.0); Mean Corpuscular Hgb Conc 32.5 g/dL (32-36); Mean Corpuscular Volume 98.5 fL (80-100); Mean Platelet Volume 11.6 fL (7.4-10.4); Platelet Count 168 K/uL (130-400); RDW Standard Deviation 49.6 fL (36.4-46.3); Red Blood Count 4.78 M/uL (4.7-6.1); White Blood Count 12.94 K/uL (4.8-10.8)
--- NOTE | 2020-07-20 09:26 | Pharmacy Report ---
Pharmacy Glycemic Short Note 2 - Date of Service July 20, 2020 - Glycemic Short BSG Results (Last 24 hours): OUTPATIENT ANTIDIABETIC REGIMEN: * Glipizide 10 mg PO BID * A1c = 9.5% (07/18/20) ASSESSMENT: 07/20: * Patient received 51 units of insulin yesterday * 20 units basal + 31 units bolus * BSGs were 544-117-801-156 mg/dL * Fasting BSG today was slightly above goal at 155 mg/dL - much improved from yesterday * No change in basal insulin today * Lunchtime BSG was 186 mg/dL * Will tighten CF/CR with lunch 07/19: * Basilio received 52 units of insulin yesterday * 20 units of basal + 32 units of bolus * BSGs were: 501-662-531-174-176 mg/dL - uncontrolled * Fasting BSG was 208 mg/dL this AM - uncontrolled * Unsure of cause of this fasting hyperglycemia. Considering an isolated event. Will await lunchtime BSG prior to adjusting any basal insulin dose. * Lunchtime BSG was 166 mg/dL. No adjustment will be made to basal/bolus regimen at this time. 07/18: * Received 15 units of Lantus and 18 units of Novolog yesterday * Fasting BSG was 167 mg/dL this morning - slightly above goal * I have tightened patient's CF/CR this morning. Will also plan to increase Lantus dose this evening 07/17: * PD is an 85 year old male admitted with RLL infiltrates (suspected pneumonia) * Currently ordered Zosyn, COVID-19 negative * Patient has history of lumbar spinal stenosis requiring pain pump * History of type 2 DM - HbA1c of 9.4% suggests poor glycemic control as an outpatient * BSG at time of consult is 265 mg/dL - will order one-time Lantus dose of 15 units and utilize Novolog with overnight checks this evening PLAN FOR INPATIENT GLYCEMIC CONTROL: * Hold outpatient oral diabetes medications * Basal insulin - no change * Lantus 20 units SQ HS * Bolus insulin - tightened * NovoLog per scale ACHS or Q6hrs while NPO * Goal Range: Low 110 mg/dL - High 140 mg/dL * Correction Factor: 18 mg/dL/unit * Nutritional / Prandial insulin per carb ratio of 1 unit per 6 grams CHO consumed PLAN FOR DISCHARGE: * HbA1c was 9.5% on 07/18/2020. This demonstrates poor outpatient control of T2DM on Glipizide monotherapy. Goal HbA1c for this patient would be less than 8.0% based on his age and comorbidities. * Hesitant to add insulin given patient's age. If patient was to be discharged to a SNF, then would recommend basal-bolus insulin regimen: * Lantus 20 units SQ HS * Novolog 5 units SQ TIDM + SSI (see below): * BSG 70 - 150 = 0 additional units * BSG 151 - 200 = 1 addition unit * BSG 201 - 250 = 3 addition units * BSG 251 - 300 = 5 addition units * BSG 301 - 350 = 7 addition units * BSG 351 - 400 = 9 addition units * BSG > 400 = 11 additional units and call MD * Metformin could be considered but patient's eGFR is borderline at ~ 45 mL/min/1.73 m2. * Patient does admit to poor dietary habits and decreased physical activity since the pandemic. HbA1c may improve with better dietary choices in the future.
[2020-07-20] MEDS: gemfibroziL 600 MG TAB PO SCH (12:12)
--- NOTE | 2020-07-20 13:23 | Orthopedic Consultation ---
Date of Consultation July 20, 2020 Assessment & Plan (1) Spinal stenosis: Long prescription for this patient and his reviewing his MRI findings and clinical course. This time he is aware of the spinal stenosis but would not like to pursue any surgical intervention. Surgery in his case would be extensive in nature requiring multilevel lumbar decompression possible fusion. Do not believe that his spinal stenosis is contributing in any way to his urinary issues. Present on Admission?: Yes History of Present Illness Reason for Consultation: Spinal stenosis Attending Physician: Cathleen Higginbotham MD History of Present Illness Struggling with urinary issues in particular urinary retention and was determined to have significant adjacent level spinal stenosis at L1-L2 3. Patient believes his last spinal surgery was roughly 9 years ago in [facility]. He denies any numbness and tingling in his legs. Denies any pain in his legs. He does have weakness in his legs with prolonged standing walking. Does have known severe osteoarthritis of the bilateral knees and of course of diabetic foot issues. Most importantly denies any pain. His is at the bedside. They both would very much like to avoid any surgery. Allergies Allergy/AdvReac Type Severity Reaction Status Date / Time hydrochlorothiazide Allergy Severe Hives Verified 07/17/20 14:13 Iodinated Contrast Media Allergy Severe Convulsions Verified 07/17/20 14:13 adhesive Allergy Intermediate RASH;PULLS Verified 07/17/20 14:13 SKIN OFF levofloxacin Allergy Mild HIVES, Verified 07/17/20 14:13 PRURITIS NSAIDS (Non-Steroidal Allergy Mild Elevated BP Verified 07/17/20 14:13 Anti-Inflamma amiodarone Allergy Unknown RASH Verified 07/17/20 14:13 cephalexin Allergy Unknown AFTER 14 Verified 07/17/20 14:13 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 Fgpymkh-Ykf-Mqr Reductase Allergy Unknown Unknown Verified 07/17/20 14:13 Inhibitor terazosin [From Hytrin] Allergy Unknown Unknown Verified 07/17/20 14:13 doxycycline AdvReac Severe Severe Verified 07/17/20 14:13 stomach pain, headaches Cephalosporins AdvReac Intermediate nausea Verified 07/17/20 14:13 after repeated dose nifedipine AdvReac Intermediate Sick to Verified 07/17/20 14:13 stomach atorvastatin AdvReac Unknown MUSCLE Verified 07/17/20 14:13 ACHES Home Medications Home Medications Medication Instructions Recorded Confirmed Type latanoprost 0.005 % eye drops 1 drops OP HS 12/20/18 10/25/20 History bupivacaine 0.25 % (2.5 mg/mL) See Rx Instructions .ROUTE 05/18/19 07/17/20 Rx injection solution .COMPLEX #50 ml aspirin 81 mg tablet,delayed 81 mg PO PM 09/09/19 07/17/20 History release gemfibrozil [Lopid] 300 mg PO QDL 10/30/19 07/17/20 History glipizide 10 mg tablet, extended 10 mg PO BID #180 tab 11/02/19 07/17/20 Rx release 24 hr Pain Pump See Rx Instructions .ROUTE .COMPLEX 11/09/19 07/17/20 History ezetimibe 10 mg tablet 10 mg PO QPM #90 tab 02/04/20 07/17/20 Rx pregabalin 150 mg capsule 150 mg PO BID #180 cap 02/04/20 07/17/20 Rx allopurinol 300 mg tablet 300 mg PO QAM #90 tab 06/20/20 07/17/20 Rx pantoprazole [Protonix] 40 mg PO PM 07/17/20 07/17/20 History silodosin [Rapaflo] 8 mg PO PM 07/17/20 07/17/20 History solifenacin [Vesicare] 5 mg PO PM 07/17/20 07/17/20 History spironolactone 50 mg PO QDL 07/17/20 07/17/20 History zolpidem [Ambien] 5 mg PO HS 07/17/20 07/17/20 History Patient History Medical History (Updated 07/20/20 @ 13:22 by Gama Evangelista DO) Cataracts, bilateral Falls Glaucoma History of heart attack History of skin cancer Incisional hernia Lumbar postlaminectomy syndrome Lung nodule Tinnitus of both ears Umbilical hernia 2006 Surgical History H/O umbilical hernia repair History of appendectomy 1947 History of back surgery x4 laminectomy 1984; AL Fusion L5-S1 1988; L4, L5 S1 [id number]; History of carpal tunnel surgery History of cataract surgery S/P CABG x 3 S/P triple vessel bypass 2001 Status post left foot surgery Status post right partial knee replacement partial 2005 Surgery, elective Neurol drug infusion implantation of programmable pump 2010 Family History Mother Stroke Coronary heart disease Hypertension Osteoarthritis Rheumatoid arthritis Heart disease Father Coronary heart disease Heart disease Sister Familial tremor Grandfather Heart disease Uncle Heart disease Other Family history non-contributory Social History Smoking Status: Former smoker Tobacco Type: Cigarettes Second Hand Exposure: No; Hx Alcohol Use: Yes Alcohol type: wine Hx Substance Use: No Preferred Language: Estonian Communication Ability: Effective Visual Impairment: Limited Hearing Ability: Normal Magistrate Assistant Required: No Beliefs That Will Affect Care: None marital status: Current Living Situation: Spouse current occupational status: retired Feels Safe at Home: Yes Assistive Devices: Walker Physical Exam Physical Exam: On exam he is alert and oriented and cooperative. He has reasonable strength testing lower extremities. Is not in any distress. Results & Data ([facility]) Vital Signs (Past 12 Hours) Vital Signs Temp Pulse Pulse Resp Resp BP Pulse Ox 07/20/20 11:06 118 H 22 07/20/20 07:31 36.4 C L 70 16 150/86 H 93 Pulse Ox 07/20/20 11:06 93 07/20/20 07:31
--- NOTE | 2020-07-20 16:56 | Hospitalist Progress Note ---
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 Evangelista seeing patient (5) Frequent falls: possibly related to spinal stenosis vs NPH? would benefit from repeat head imaging -- none in our system since states his legs get weak with walking (neurogenic claudication) says he is off balance and has paresthesias at times will need continued PT at SNF (6) Complicated UTI (urinary tract infection): UA: > 30 WBC, 2+ LE, negative nitrite urine culture only with 3+ skin jorge will continue zosyn until blood cultures are finalized -- thus far NGTD (7) Diabetes mellitus type II, controlled: hold glipizide 10 twice daily glycemic management consult (8) CAD (coronary artery disease): S/p CABG Cont aspirin, ezetimibe and gemfibrozil (9) Dementia: patient oriented to city, hospital name, month and year can no longer take care of patient at home (10) Scarring of lung: Chest CT without pneumonia scarring present procal normal (11) Acute and chronic respiratory failure with hypoxia: resolved does not wear home oxygen, off oxygen today oxygen saturations 93% with ambulation (12) Sepsis: resolved CT without pneumonia, Urine culture negative Awaiting blood cultures (13) DVT prophylaxis: lovenox 40 mg sc daily patient to go to SNF when ready for discharge Admission and Anticipated Discharge Date Admission Date: July 17, 2020 Subjective Patient slept much better last night. He got up in middle of night to use restroom and fell. Did not hit his head. Sat on floor for some time before he was found. Bed alarm was not on. Patient has required in and out cath x3 for post-void residuals > 600ml. No previous episodes of urinary retention. tells me patient was started on vesicare 1.5 weeks ago for urinary urgency and incontinence -- she thinks this can cause retention. Patient has no other complaints. He denies abd pain, chest pain, dyspnea. Denies headache. Oriented x3 today. Eating well. Review of Systems Constitutional: no fever, no chills, no fatigue, no weakness, no anorexia, no weight loss and no weight gain Ear, Nose, Mouth, Throat: no nasal congestion, no sore throat and no dysphagia Respiratory: + cough; no dyspnea Cardiovascular: no chest pain, no dyspnea on exertion, no orthopnea and no palpitations Gastrointestinal: + constipation; no abdominal pain, no nausea, no vomiting, no hematemesis, no dysphagia, no diarrhea/loose stools, no blood in stools and no melena Genitourinary: + difficulty urinating Musculoskeletal: no back pain, no joint pain, no myalgia and no muscle weakness Integumentary: no rash, no lesions, no skin ulcer, no erythema, no dry skin and no pruritus Neurologic: + falls; no localized weakness, no generalized weakness, no numbness, no paresthesia, no tremor(s) and no headache(s) Psychiatric: no depression, no suicidal ideation, no homicidal ideation and no anxiety Endocrine: no cold intolerance and no heat intolerance Hematologic / Lymphatic: no easy bleeding and no easy bruising Physical Exam Constitutional: well developed and well nourished; no acute distress Eyes: PERRL, conjunctivae normal, anicteric sclerae ENMT: Mouth: oral mucous membranes not dry Respiratory: normal respiratory effort; no respiratory distress and no labored breathing (on 2L NC) Auscultation: lungs clear to auscultation bilaterally; no crackles, no rales, no rhonchi and no wheezes Cardiovascular: Rate/Rhythm: regular rate and regular rhythm Heart Sounds: no murmur and no cardiac rub Vessels: normal peripheral pulses and radial pulses present; no JVD Extremities: no edema Gastrointestinal (Abdomen): Inspection/Auscultation: abdomen normal to inspection and normal bowel sounds; abdomen not distended Percussion/Palpation: abdomen soft; abdomen nontender, no guarding, abdomen not rigid and no hepatosplenomegaly Musculoskeletal: Head/Neck/Chest: normocephalic and head atraumatic Spine: no cervical spinal tenderness, no cervical muscular tenderness, no thoracic spinal tenderness and no lumbar spinal tenderness Skin: no rashes, warm and dry Neurologic: CN's II-XI intact bilaterally and moves all extremities Motor/Sensory: + tremor; no sensory deficit Psychiatric: Orientation: alert, oriented to person, oriented to place and oriented to time Apperance: appropriately groomed; not disheveled Affect: euthymic affect; no anxious affect and no tearful affect Results & Data Results & Data ([facility]) Vital Signs (Past 12 Hours) Vital Signs Temp Pulse Pulse Resp Resp BP Pulse Ox 07/20/20 15: 36.6 C 76 18 118/74 92 07/20/20 11:06 118 H 22 07/20/20 07:31 36.4 C L 70 16 150/86 H 93 Pulse Ox 07/20/20 15:19 07/20/20 11:06 93 07/20/20 07:31 Laboratory Results Abnormal lab results 07/19/20 07/19/20 07/20/20 Range/Units 17:06 19:23 08:12 WBC (4.8-10.8) K/uL RDW Std Deviation (36.4-46.3) fL MPV (7.4-10.4) fL POC Glucose 208 H 156 H 155 H (70-99) mg/dl 07/20/20 07/20/20 Range/Units 08:56 11:59 WBC 12.94 H (4.8-10.8) K/uL RDW Std Deviation 49.6 H (36.4-46.3) fL MPV 11.6 H (7.4-10.4) fL POC Glucose 186 H (70-99) mg/dl Diagnostic Findings Microbiology 07/17/20 22:45 Urine,Clean Catch Urine Culture - Final Three types of organisms present, all low counts probable skin jorge. No further identifications or sensitivities to follow. 07/17/20 13:00 Blood Aerobic Blood Culture - Preliminary No growth in Aerobic bottle after 48 hours. 07/17/20 13:00 Blood Anaerobic Blood Culture - Final 07/17/20 15:07 Blood Aerobic Blood Culture - Preliminary No growth in Aerobic bottle after 48 hours. 07/17/20 15:07 Blood Anaerobic Blood Culture - Preliminary No growth in Anaerobic bottle after 48 hours. Medications Administered Current Inpatient Medications Acetaminophen (Acetaminophen 325 Mg Tab) 650 mg PO Q4H PRN PRN Reason: pain/fever Stop: 08/16/20 19:06 Allopurinol (Allopurinol 300 Mg Tab) 300 mg PO QAM [facility] Stop: 08/17/20 08:59 Last Admin: 07/20/20 08:59 Dose: 300 mg Documented by: Aspirin (Aspirin 81 Mg Ectab) 81 mg PO PM [facility] Stop: 08/16/20 20:59 Last Admin: 07/19/20 20:50 Dose: 81 mg Documented by: Dextrose (Dextrose 50% 50 Ml Syringe) 25 - 50 ml IV UD PRN; Protocol PRN Reason: Hypoglycemia Protocol Stop: 08/16/20 19:06 Ezetimibe (Ezetimibe 10 Mg Tablet) 10 mg PO QPM [facility] Stop: 08/16/20 20:59 Last Admin: 07/19/20 20:50 Dose: 10 mg Documented by: Enoxaparin Sodium (Enoxaparin Inj 40 Mg/0.4 Ml Syr) 40 mg SQ QAM [facility] Stop: 08/17/20 08:59 Last Admin: 07/20/20 08:58 Dose: 40 mg Documented by: Gemfibrozil (Gemfibrozil 600 Mg Tab) 300 mg PO QDL [facility] Stop: 08/17/20 11:29 Last Admin: 07/20/20 12:12 Dose: 300 mg Documented by: Glucagon (Glucagon For Inj 1 Mg Vial) 1 mg SQ UD PRN; Protocol PRN Reason: Hypoglycemia Protocol Stop: 08/16/20 19:06 Glucose (Glucose 10 Tabs/Tube) 4 - 8 tabs PO UD PRN; Protocol PRN Reason: Hypoglycemia Protocol Stop: 08/16/20 19:06 Glucose (Glucose 40% Gel 15 Gm Tube) 15 - 30 gm PO UD PRN; Protocol PRN Reason: Hypoglycemia Protocol Stop: 08/16/20 19:06 Piperacillin Sod/Tazobactam (Sod 4.5 gm/ Dextrose) 120 mls @ 30 mls/hr IV Q8H [facility]; Protocol Stop: 07/26/20 13:59 Last Admin: 07/20/20 13:47 Dose: 30 mls/hr Documented by: Insulin Aspart (Insulin Aspart 100 Units/Ml 3 Ml Pen) 0 units SC ACHS [facility]; Prot ocol Stop: 08/16/20 19:59 Last Admin: 07/20/20 13:45 Dose: 8 units Documented by: Insulin Glargine (Insulin Glargine Solostar 100 Units/Ml 3 Ml Pen) 20 units SC HS [facility]; Protocol Stop: 08/17/20 20:59 Last Admin: 07/19/20 20:53 Dose: 20 units Documented by: Latanoprost (Latanoprost 0.005% Op Soln 2.5 Ml Btl) 1 drops OP HS [facility] Stop: 08/16/20 20:59 Last Admin: 07/19/20 20:50 Dose: 1 drops Documented by: Miscellaneous (Carbohydrates For Hypoglycemia ) 15 - 30 gm PO UD PRN PRN Reason: Hypoglycemia Protocol Stop: 08/16/20 19:06 Miscellaneous Information (Pharmacy Glycemic Mgmt Consult) 1 ea N/A UD PRN; Protocol PRN Reason: Consult Stop: 08/16/20 19:33 Miscellaneous Information (Piperacill/Tazobac Consult Active) 1 ea N/A UD PRN PRN Reason: Consult Stop: 08/16/20 19:06 Morphine Sulfate (Morphine/Clonidine/Bupivacaine - Pain Pump) 0 mg INFIL UD [facility] Stop: 08/16/20 19:29 Ondansetron HCl (Ondansetron Inj 2 Mg/Ml 2 Ml Vial) 4 mg IV Q6H PRN PRN Reason: Nausea Stop: 08/16/20 19:06 Pantoprazole Sodium (Pantoprazole 40 Mg Tab) 40 mg PO PM [facility] Stop: 08/16/20 20:59 Last Admin: 07/19/20 20:50 Dose: 40 mg Documented by: Polyethylene Glycol (Polyethylene (Miralax) 17 Gm Pack) 17 gm PO DAILY PRN PRN Reason: Constipation Stop: 08/16/20 19:06 Pregabalin (Pregabalin 150 Mg Cap) 150 mg PO BID [facility] Stop: 08/16/20 20:59 Last Admin: 07/20/20 09:08 Dose: 150 mg Documented by: Senna/Docusate Sodium (Docusate Sodium/Senna 50/8.6mg Tab) 1 tab PO QAM [facility] Stop: 08/18/20 08:59 Last Admin: 07/20/20 09:08 Dose: 1 tab Documented by: Silodosin (Silodosin 8 Mg Cap) 1 ea PO QDD [facility]; Protocol Stop: 08/18/20 16:29 Last Admin: 07/19/20 17:42 Dose: 1 ea Documented by: Results / Data Past Records Previous Records Reviewed: HCT (-2017) with mild ventricular dilation thought 2' to volume loss PG Care Time/CCT Total # of Minutes Spent Total Time Spent with Patient: Total time spent is greater than 50% in coordination of care (as documented) at patient's floor/unit and/or counseling patient: Coding Level of Care Code 33276 Subseq Hosp Care Lvl 3 Diagnoses Urinary retention R33.9 Leukocytosis D72.829 Leukocytosis type: unspecified Debility R53.81 Lumbar spinal stenosis M48.061 Neurogenic claudication status: unspecified Frequent falls R29.6 Complicated UTI (urinary tract infection) N39.0 Diabetes mellitus type II, controlled E11.59 Diabetes mellitus buttermaker insulin use: unspecified nursing home insulin use status Diabetes mellitus complication status: with circulatory complication Diabetes mellitus complication detail: with other circulatory complications CAD (coronary artery disease) I25.10 Coronary Disease-Associated Artery/Lesion type: [place] artery [place] vs. transplanted heart: [place] heart Associated angina: without angina Dementia F03.90 Dementia type: unspecified type Dementia behavioral disturbance: without behavioral disturbance Scarring of lung J98.4 Acute and chronic respiratory failure with hypoxia J96.21 Sepsis A41.9 Sepsis type: sepsis due to unspecified organism Sepsis acute organ dysfunction status: without acute organ dysfunction DVT prophylaxis Z29.9 (1) Lumbar spinal stenosis Neurogenic claudication status: unspecified Qualified Code(s): M48.061 - Spinal stenosis, lumbar region without neurogenic claudication (2) Dementia Dementia type: unspecified type Dementia behavioral disturbance: without behavioral disturbance Qualified Code(s): F03.90 - Unspecified dementia without behavioral disturbance (3) Sepsis Sepsis type: sepsis due to unspecified organism Sepsis acute organ dysfunction status: without acute organ dysfunction Qualified Code(s): A41.9 - Sepsis, unspecified organism (4) CAD (coronary artery disease) Coronary Disease-Associated Artery/Lesion type: [place] artery [place] vs. transplanted heart: [place] heart Associated angina: without angina Qualified Code(s): I25.10 - Atherosclerotic heart disease of [place] coronary artery without angina pectoris (5) Diabetes mellitus type II, controlled Diabetes mellitus nursing home insulin use: unspecified buttermaker insulin use status Diabetes mellitus complication status: with circulatory complication Diabetes mellitus complication detail: with other circulatory complications Qualified Code(s): E11.59 - Type 2 diabetes mellitus with other circulatory complications (6) Leukocytosis Leukocytosis type: unspecified Qualified Code(s): D72.829 - Elevated white blood cell count, unspecified
[2020-07-20] MEDS: SILODOSIN 8 MG CAP PO SCH (17:43)
[2020-07-20] MEDS: LATANOPROST 0.005% OP SOLN 2.5 ML BTL OP SCH (21:44)
[2020-07-20] MEDS: ASPIRIN 81 MG ECTAB PO SCH (21:46)
[2020-07-20] MEDS: EZETIMIBE 10 MG TABLET PO SCH (21:46)
[2020-07-20] MEDS: PANTOprazole 40 MG TAB PO SCH (21:46)
[2020-07-20] MEDS: INSULIN GLARGINE SOLOSTAR 100 UNITS/ML 3 ML PEN SC SCH (21:51)
[2020-07-21] MEDS: PIPERACILLIN/TAZOBACTAM 4.5 GM in DEXTROSE 5% 100 ML IV SCH ×2 (05:16→13:20)
[2020-07-21 07:26] LABS: Hematocrit (blood only) 43.1 % (42-52); Hemoglobin 14.2 g/dL (14.0-18.0); Mean Corpuscular Hemoglobin 32.3 pg (25-34); Mean Corpuscular Hgb Conc 32.9 g/dL (32-36); Mean Corpuscular Volume 98.2 fL (80-100); Mean Platelet Volume 11.7 fL (7.4-10.4); Platelet Count 142 K/uL (130-400); RDW Coefficient of Variation 14.1 % (11.5-14.5); RDW Standard Deviation 50.2 fL (36.4-46.3); Red Blood Count 4.39 M/uL (4.7-6.1); White Blood Count 10.37 K/uL (4.8-10.8)
[2020-07-21 07:58] LABS: BUN Creatinine Ratio 10.4 (10-20); Creatinine Clr Calc Pharmacy 43.5 ml/min; Est GFR (African American) 52.3; Est GFR (Non-African American) 45.1; Potassium 3.5 mmol/L (3.5-5.1)
[2020-07-21 08:41] LABS: Basophils # (auto) 0.06 K/uL (0-0.2); Basophils % (auto) 0.6 %; Eosinophils # (auto) 0.47 K/uL (0-0.5); Eosinophils % (auto) 4.5 %; Immature Granulocytes # (auto) 0.07 K/uL (0.00-0.02); Immature Granulocytes % (auto) 0.7 %; Lymphocytes # (auto) 5.25 K/uL (1.2-3.4); Lymphocytes % (auto) 50.6 %; Monocytes # (auto) 0.59 K/uL (0.11-0.59); Monocytes % (auto) 5.7 %; Neutrophils # (auto) 3.93 K/uL (1.4-6.5); Neutrophils % (auto) 37.9 %
[2020-07-21 08:43] LABS: Smudge Cells Present
[2020-07-21 09:50] LABS: RBC Morphology Unremarkable
[2020-07-21] MEDS: INSULIN ASPART 100 UNITS/ML 3 ML PEN SC SCH ×2 (10:08→13:19)
[2020-07-21] MEDS: ENOXAPARIN INJ 40 MG/0.4 ML SYR SQ SCH (10:09)
[2020-07-21] MEDS: allopurinoL 300 MG TAB PO SCH (10:10)
[2020-07-21] MEDS: DOCUSATE SODIUM/SENNA 50/8.6MG TAB PO SCH (10:11)
[2020-07-21] MEDS: PREGABALIN 150 MG CAP PO SCH (10:18)
[2020-07-21] MEDS: gemfibroziL 600 MG TAB PO SCH (10:20)
--- NOTE | 2020-07-21 12:53 | Discharge Summary ---
Date of Service July 21, 2020 Admission HPI Per Admitting Provider 85-year-old male who has had progressive decline in function over the last few weeks and years who presented to the emergency room due to profound weakness and consideration for longterm placement. We are asked admit the patient for leukocytosis and possible right lower lobe pneumonia. Upon review of his last few admissions he has this persistent right lower lobe changes on his x-ray. He is elevation of the hemidiaphragm also in that area. His previous admissions are very similar with a weakness leukocytosis and treatment for right lower lobe pneumonia although his x-rays did not not seem to clear This then will begin this patient's admission as treatment for possible right lower lobe pneumonia but will do a CT scan without contrast to evaluate for possible positive pneumonic infiltrate. Patient also has a history of bladder outlet obstruction with difficulty voiding and urine infection could be another source. Patient also is currently being tested for Covid. Patient will be assessed for the need for longterm placement with PT OT evaluation after his initial acute illness has been further defined. Principal Diagnosis frequent falls, gait instability Discharge Exam Constitutional well developed and well nourished; no acute distress appears stated age, sitting up in chair, comfortable appearing Eyes PERRL, conjunctivae normal, anicteric sclerae ENMT Mouth: oral mucous membranes not dry Respiratory normal respiratory effort; no respiratory distress Auscultation: lungs clear to auscultation bilaterally; no crackles, no rales, no rhonchi and no wheezes Cardiovascular Rate/Rhythm: regular rate and regular rhythm Heart Sounds: no murmur and no cardiac rub Vessels: normal peripheral pulses and radial pulses present; no JVD Extremities: no edema Gastrointestinal (Abdomen) Inspection/Auscultation: abdomen normal to inspection and normal bowel sounds; abdomen not distended Percussion/Palpation: abdomen soft; abdomen nontender, no guarding, abdomen not rigid and no hepatosplenomegaly abdominal obesity Musculoskeletal Head/Neck/Chest: normocephalic and head atraumatic Spine: no cervical spinal tenderness, no cervical muscular tenderness, no thoracic spinal tenderness and no lumbar spinal tenderness Skin no rashes, warm and dry Neurologic CN's II-XI intact bilaterally and moves all extremities Motor/Sensory: + tremor; no sensory deficit Psychiatric Orientation: alert, oriented to person, oriented to place and oriented to time Apperance: appropriately groomed; not disheveled Affect: euthymic affect; no anxious affect and no tearful affect Discharge Data Allergies Allergy/AdvReac Type Severity Reaction Status Date / Time hydrochlorothiazide Allergy Severe Hives Verified 07/17/20 14:13 Iodinated Contrast Media Allergy Severe Convulsions Verified 07/17/20 14:13 adhesive Allergy Intermediate RASH;PULLS Verified 07/17/20 14:13 SKIN OFF levofloxacin Allergy Mild HIVES, Verified 07/17/20 14:13 PRURITIS NSAIDS (Non-Steroidal Allergy Mild Elevated BP Verified 07/17/20 14:13 Anti-Inflamma amiodarone Allergy Unknown RASH Verified 07/17/20 14:13 cephalexin Allergy Unknown AFTER 14 Verified 07/17/20 14:13 DAYS-DEVELOPED GASTRITIS-2017 Avgjngg-Oem-Kex Reductase Allergy Unknown Unknown Verified 07/17/20 14:13 Inhibitor terazosin [From Hytrin] Allergy Unknown Unknown Verified 07/17/20 14:13 doxycycline AdvReac Severe Severe Verified 07/17/20 14:13 stomach pain, headaches Cephalosporins AdvReac Intermediate nausea Verified 07/17/20 14:13 after repeated dose nifedipine AdvReac Intermediate Sick to Verified 07/17/20 14:13 stomach atorvastatin AdvReac Unknown MUSCLE Verified 07/17/20 14:13 ACHES solifenacin AdvReac urinary Verified 07/20/20 15:31 retention Consultations 07/17/20 15:30 ED Decision to Admit Stat 07/20/20 08:49 Consult Orthopedic Surgery Routine 07/20/20 17:40 Consult Patient Services Routine Ordered Studies 07/18/20 16:15 MR lumbar spine wo con Routine IMPRESSION: 1. Postsurgical changes at the L4-S1 levels. 2. Multilevel lumbar spondylosis most pronounced at the L2-L3 and L3-L4 levels which demonstrates central canal or neural foraminal narrowing as described above. 3. Distended bladder with multiple small diverticula. 4. Bilateral renal T2 hyperintense lesions with the largest on the right measuring 14 cm. These are incompletely characterized on this noncontrast study but favor cysts. These are similar to the prior study. 07/19/20 12:45 CT chest wo con Routine IMPRESSION: 1. Moderate elevation/eventration of the right hemidiaphragm 2. Marked interval improvement in the previously identified right upper lobe and right lower lobe airspace opacities. Residual opacities while nonspecific likely represent postinflammatory scarring 3. Cholelithiasis Diabetes Follow up Diabetes Follow-up Needed for HgbA1c >9% Hospital Course (1) Frequent falls: possibly related to spinal stenosis vs NPH? would benefit from repeat head imaging -- none in our system since at which time he had enlarged ventricles discussed with Dr. Neil who agrees with Head CT long conversation with patient, his and patient's son: They have refused head ct at this time. They believe patient is at his baseline and are not worried about SDH or other trauma from falling. Additionally, even if CT suggested NPH, they would not want to pursue shunt placement at this time. states his legs get weak with walking (neurogenic claudication) says he is off balance and has paresthesias at times will need continued PT at SNF would recommend continued bed alarm and fall precautions (2) Lumbar spinal stenosis: likely contributing to falls MRI lumbar spine with spinal stenosis L1 - L4 mild - severe has pain pump in place ortho spine does not think urinary retention is related to spinal stenosis patient not interested in further spine surgery appreciate Dr. 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 Neil to review unlikely infectious etiology at this time procal was normal all cultures NGTD (4) Debility: PT has recommended SNF at discharge will need continued PT and OT (5) Urinary retention: known outflow obstruction, but no history of needing cath tells me patient was started on solifenacin 1.5 weeks ago likely causing urinary retention after stopping solifenacin, able to void on his own without large post-void residuals stop solifenacin, cont rapaflo (6) Diabetes mellitus type II, controlled: hold glipizide 10 twice daily cont lantus 20units and carb ratio 1 unit insulin to 5 grams carbs glycemic management took care of BG while inpatient (7) CAD (coronary artery disease): S/p CABG Cont aspirin, ezetimibe and gemfibrozil restart aldactone (8) Dementia: patient oriented to city, hospital name, month and year tells me he will get confused at home, especially when sleeping or when just waking up additionally, he can not use telephone and sometimes confuses the TV remote with the phone can no longer take care of patient at home (9) Scarring of lung: Chest CT without pneumonia COVID negative 07-17 scarring present procal normal (10) Pyuria, sterile: UA: > 30 WBC, 2+ LE, negative nitrite received 4 days zosyn from 07-17 through 07-21 urine culture only with 3+ skin jorge stopped antibiotics (11) SIRS (systemic inflammatory response syndrome): resolved CT without pneumonia, Urine culture negative Blood cultures no growth to date (12) Acute and chronic respiratory failure with hypoxia: resolved does not wear home oxygen, off oxygen today oxygen saturations 93% with ambulation (13) DVT prophylaxis: patient was given lovenox 40 mg sc daily while inpatient Total Time Total Time Spent Total Time Spent (In Minutes): 60 Total Time Includes: Examination of the Patient, Discharge Planning, Medication Reconciliation and Communication With Other Providers Discharge Plan Discharge Items Patient Disposition: Transfer [facility] Reason For Visit: LEUKOCYTOSIS, WEAKNESS Discharge Diagnosis: 1. frequent falls 2. cognitive impairment / dementia 3. monoclonal B cell lymphocytosis 4. lumbar spinal stenosis 5. urinary retention due to taking solifenacin Condition on Discharge: Fair Activity: Resume your previous activity Non-emergency contact: Primary Care Provider Call non-emergency contact if: you have any medication questions Follow-up/Referrals: Miles Neil MD [Primary Care Provider] - Diet: Carb Consistent or DM2 Addtl Attending Provider Instructions: 1. Continue physical and occupational therapy 2. Continue to use walker at all times 3. Apply moisturizing cream to both feet and legs daily 4. Check for pressure wounds every day on heals and back 5. See Dr. 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 Consider checking a cat scan of your brain. 6. Stop taking solifenacin 7. While at the nursing facility, stop taking glipizide, start taking levemir 20 units at bedtime and 1 unit insulin per 5 grams carbohydrates with meals 8. You will need a bed alarm at the nursing facility and fall precautions Pending Studies at Discharge: Yes Studies:: flow cytometry for evaluation of CLL Stand-Alone Forms: My [employer] [place] [employer] Skilled Items Patient informed of condition?: Yes DNR: No Discharge Level of Care: Skilled Communicable Disease: No Discharge Prognosis: Stable Lines: None Urinary Catheter: No Medications and DC Order Prescriptions: New insulin aspart U-100 [Novolog Flexpen U-100 Insulin] 100 unit/mL (3 mL) Insulin Pen 1 unit SC ACHS PRN (Reason: eating 5 grams of carbohydrates) Qty: 0 RF: 0 Lantus Solostar U-100 Insulin 100 unit/mL (3 mL) Insulin Pen 20 unit SC HS Qty: 0 RF: 0 GlucaGen Diagnostic Kit 1 mg/mL Recon Soln 1 mg subcut UD PRN (Reason: hypoglycemia) Qty: 0 RF: 0 glucose [Dex4 Glucose] 4 gram Tablet,Chewable 4 - 8 tabs PO UD PRNQty: 0 RF: 0 Continued latanoprost 0.005 % drops 1 drops OP HS RF: 0 bupivacaine 0.25 % (2.5 mg/mL) solution See Rx Instructions .ROUTE .COMPLEX Qty: 50 RF: 0 ezetimibe [Zetia] 10 mg tablet 10 mg PO QPM Qty: 90 RF: 3 pregabalin [Lyrica] 150 mg capsule 150 mg PO BID Qty: 180 RF: 1 allopurinol [Zyloprim] 300 mg tablet 300 mg PO QAM Qty: 90 RF: 1 aspirin [Adult Low Dose Aspirin] 81 mg tablet,delayed release (DR/EC) 81 mg PO PM RF: 0 Pain Pump See Rx Instructions .ROUTE .COMPLEX RF: 0 pantoprazole [Protonix] 40 mg tablet,delayed release (DR/EC) 40 mg PO PM RF: 0 spironolactone 50 mg tablet 50 mg PO QDL RF: 0 silodosin [Rapaflo] 8 mg capsule 8 mg PO PM RF: 0 gemfibrozil [Lopid] 600 mg tablet 300 mg PO QDL RF: 0 Discontinued glipizide 10 mg tablet extended release 24hr 10 mg PO BID Qty: 180 RF: 3 zolpidem [Ambien] 10 mg tablet 5 mg PO HS RF: 0 solifenacin [Vesicare] 5 mg tablet 5 mg PO PM RF: 0 Discharge Orders: Discharge Order (Routine); Ordered 07/21/20 Ordered By: Cathleen Chavis/Other Patient Handouts: High Blood Sugar (Hyperglycemia), Hypoglycemia (Low Blood Sugar), Managing Type 2 Diabetes Admission Data Admit Date/Time: 07/17/20 16:15 Attending Provider: Cathleen Higginbotham Admit Provider: Mariano Yoon Primary Care Provider: Miles Neil Other Providers: Mariano Yoon ; Vazquez Oakes [facility] ; Gama Evangelista Coding Level of Care Code D/C Day Management >30 mins Diagnoses Frequent falls R29.6 Lumbar spinal stenosis M48.061 Neurogenic claudication status: unspecified Monoclonal B-cell lymphocytosis D72.820 Debility R53.81 Urinary retention R33.9 Diabetes mellitus type II, controlled E11.59 Diabetes mellitus complication detail: with other circulatory complications Diabetes mellitus complication status: with circulatory complication Diabetes mellitus predatory animal exterminator insulin use: unspecified predatory animal exterminator insulin use status CAD (coronary artery disease) I25.10 Associated angina: without angina Coronary Disease-Associated Artery/Lesion type: [place] artery [place] vs. transplanted heart: [place] heart Dementia F03.90 Dementia behavioral disturbance: without behavioral disturbance Dementia type: unspecified type Scarring of lung J98.4 Pyuria, sterile R82.81 SIRS (systemic inflammatory response syndrome) R65.10 Acute and chronic respiratory failure with hypoxia J96.21 DVT prophylaxis Z29.9
[2020-07-21 15:12] VITALS: BP 133/76; PULSE 61; TEMP 97.9; O2SAT 92
[2020-07-21] MEDS ORDERED: INSULIN GLARGINE SOLOSTAR 100 UNITS/ML 3 ML PEN SC SCH (21:00)
== END 2020-07-21 17:18 | DRG 871 ==
LOC: ED 13:04 → SUATTDRO 16:15 → 3W 16:15

== ENCOUNTER 2023-02-01 11:33 | Inpatient (IN) ==
[2023-02-01 12:55] LABS: Basophils # (auto) 0.09 K/uL (0-0.2); Basophils % (auto) 0.5 %; Eosinophils # (auto) 0.08 K/uL (0-0.50); Eosinophils % (auto) 0.5 %; Hemoglobin 13.8 g/dl (14.0-18.0); Immature Granulocytes # (auto) 0.09 K/uL (0.01-0.20); Immature Granulocytes % (auto) 0.5 %; Lymphocytes # (auto) 3.96 K/uL (1.2-3.4); Lymphocytes % (auto) 23.8 %; Mean Corpuscular Hemoglobin 31.9 pg (25.0-34.0); Mean Corpuscular Hgb Conc 32.9 g/dL (32.0-36.0); Mean Platelet Volume 12.1 fL (9.4-12.4); Monocytes # (auto) 0.94 K/uL (0.11-0.59); Monocytes % (auto) 5.6 %; Neutrophils # (auto) 11.51 K/uL (1.40-6.50); Neutrophils % (auto) 69.1 %; Platelet Count 237 K/uL (130-400); RDW Coefficient of Variation 12.9 % (11.5-14.5); Red Blood Count 4.33 M/uL (4.70-6.10); White Blood Count 16.67 K/ul (4.8-10.8)
[2023-02-01 12:59] LABS: Albumin Level 3.5 gm/dl (3.4-5.0); BUN Creatinine Ratio 20.7 (10-20); Bilirubin,Total 0.9 mg/dl (0.2-1.0); Calcium 8.5 mg/dl (8.6-10.3); Creatinine Clr Calc Pharmacy 48.8 ml/min; Est GFR (African American) 65.3 ml/min; Est GFR (Non-African American) 56.3 ml/min; Globulin 3.5 gm/dl (2.5-4.0); Potassium 3.9 mmol/L (3.5-5.1)
--- NOTE | 2023-02-01 13:46 | XRay Report ---
XR chest 1V portable CLINICAL HISTORY: Shortness of breath. COMPARISON STUDY: Chest radiograph June 17, [address] July 19, 2020. FINDINGS: Median sternotomy wires and mediastinal surgical clip are noted. Cardiomegaly is unchanged. There is no evidence for pulmonary edema. No pneumothorax or pleural effusion. Elevation of the righ t hemidiaphragm is unchanged. No definite consolidation. There is right infrahilar opacity. IMPRESSION: 1. Equivocal right infrahilar opacity. This is likely artifactual however a focus of pneumonia could appear similar. Radiographic follow-up is recommended. 2. Cardiomegaly. No evidence for pulmonary edema. ACT 112: Negative or not required by law. Electronically signed by: Benton Mcgrath M.D. 02/01/2023 1:44 PM
[2023-02-01 14:21] LABS: Troponin I High Sensitivity 7927.2 pg/ml (0-20)
[2023-02-01] MEDS ORDERED: ASPIRIN CHEW 324 MG PO STA (14:27)
--- NOTE | 2023-02-01 14:27 | Emergency Department Note ---
Impression & Plan Fatigue, Viral illness, Elevated troponin, Acute dyspnea ED Provider Note INFORMANT: Patient and family ED PROVIDER(S): Irving De Oliveira DO CHIEF COMPLAINT: Cough weakness PLAN: Disposition: Admission Outpatient prescription management: [none] Discussion with: I spoke with the hospitalist, who will see the patient for admission/observation and further evaluation and consultation. MEDICAL DECISION MAKING: This is a 87-year-old male who presents to the ED with a chief complaint of some fatigue and generalized weakness as well as shortness of breath. He reports a cough for the past week. Saw his PCP and started on prednisone 3 days ago. The family member present with the patient reports that there is a virus going through the whole skilled nursing. Patient does report some decrease in appetite. There is no distress. Feels comfortable going back. Exam reveals clear lung sounds. Heart is regular rate and rhythm. Abdomen soft and nontender. Chest x-ray was negative for acute disease. No pneumonia. Radiologist reports a right hilar abnormality although there family were present states that this is previously present on chest x-rays. The patient's white blood cell count is 16. This might be related to recent prednisone use. BUN is 24. Glucose was 197. Troponin [place] elevated [place] 7927 any function was normal electrolytes are normal. Twelve-lead EKG shows a sinus tachycardia rate of 107. ST depressions in V2, 3. PVCs. No ST elevation. ST depressions look somewhat worse than June 2020. Because of the patient's shortness of breath and elevated troponin, I feel the patient should be further evaluated as an inpatient. I spoke to the spitalist who will see the patient for further evaluation and care. The patient was given aspirin p.o. here. He was also given 5 mg IV Lopressor for his elevated heart rate. The patient currently denies having any chest pains. Triage Nursing notes reviewed. Vital Signs: reviewed Prior /Outside records reviewed: [none] Differential diagnosis: Differential includes acute coronary syndrome, myocardial infarction, CVA, TIA, anemia, infection, pneumonia, UTI, pyelonephritis, poor nutrition, dehydration, electrolyte disturbance,hypoglycemia. Diagnostics, as interpreted by me: 12 lead ECG: Sinus rhythm at a rate of 107 with PVCs. Depressions and T wave versions anteriorly. Cardiac Monitoring ordered: Sinus rhythm in the 90s nurse Medical decision rules: none Imaging studies: Chest x-ray: No acute disease. Radiologist reports a right hilar abnormality. Family patient states this is chronic and normal. Procedures: none. Critical care: none. HPI: See MDM above. PAST MEDICAL HISTORY: See Below PAST SURGICAL HISTORY: See Below SOCIAL HISTORY: See Below HOME MEDICATIONS:See Below ALLERGIES: See Below VITALS: See Below PHYSICAL EXAMINATION: See MDM for positive findings otherwise unremarkable. CONSTITUTIONAL/VITAL SIGNS: Reviewed GENERAL:done as appropriate INTEGUMENTARY: done as appropriate HEAD: done as appropriate EYES: done as appropriate RESPIRATORY: done as appropriate CARDIOVASCULAR:done as appropriate GI/ABDOMEN:done as appropriate EXTREMITIES: done as appropriate NEUROLOGICAL: done as appropriate PSYCHIATRIC:done as appropriate MUSCULOSKELETAL:done as appropriate TRIAGE NURSING DOCUMENTATION REVIEWED. 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 Status post left foot surgery Status post right partial knee replacement partial 2005 Surgery, elective Neurol drug infusion implantation of programmable pump 2010 Family History Mother Stroke Coronary heart disease Hypertension Osteoarthritis Rheumatoid arthritis Heart disease Myocardial infarction Father Coronary heart disease Heart disease Sister Familial tremor Grandfather Heart disease Uncle Heart disease Other Family history non-contributory Denies family history of Ovarian cancer Prostate cancer Diabetes Breast cancer Lung cancer Colorectal cancer Social History Smoking Status: Former smoker Tobacco Type: Cigarettes Second Hand Exposure: No; Do You Dip or Chew Tobacco: No; Hx Alcohol Use: Yes (Occasional ) Alcohol type: wine Alcohol Intake Frequency: Monthly or Less Hx Substance Use: No Preferred Language: Czech Communication Ability: Effective Visual Impairment: Limited Hearing Ability: Normal 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 Beliefs That Will Affect Care: None marital status: Current Living Situation: Spouse current occupational status: retired How many Children do You have: 3 Feels Safe at Home: Yes Childhood Exposure to Second-Hand Smoke: Yes caffeine: Yes Dental Care, Regularly: Yes Physical Activity Frequency: Does not Exercise Seatbelt Use: always Sunscreen Use: Yes Assistive Devices: Glasses, Walker and Wheelchair Allergies Allergies Allergy/AdvReac Type Severity Reaction Status Date / Time hydrochlorothiazide Allergy Severe Hives Verified 01/29/23 13:57 Iodinated Contrast Media Allergy Severe Convulsions Verified 01/29/23 13:57 adhesive Allergy Intermediate RASH;PULLS Verified 01/29/23 13:57 SKIN OFF levofloxacin Allergy Mild HIVES, Verified 01/29/23 13:57 PRURITIS NSAIDS (Non-Steroidal Allergy Mild Elevated BP Verified 01/29/23 13:57 Anti-Inflamma amiodarone Allergy Unknown RASH Verified 01/29/23 13:57 cephalexin Allergy Unknown AFTER 14 Verified 01/29/23 13:57 DAYS-DEVELOPED GASTRITIS-2017 Vmdisyi-BYR-TtH Reductase Allergy Unknown Unknown Verified 01/29/23 13:57 Inhibitor [Fbnzsuz-Cyn-Nwo Reductase Inhibitor] terazosin [From Hytrin] Allergy Unknown Unknown Verified 01/29/23 13:57 doxycycline AdvReac Severe Severe Verified 01/29/23 13:57 stomach pain, headaches Cephalosporins AdvReac Intermediate nausea Verified 01/29/23 13:57 after repeated dose nifedipine AdvReac Intermediate Sick to Verified 01/29/23 13:57 stomach atorvastatin AdvReac Unknown MUSCLE Verified 01/29/23 13:57 ACHES ezetimibe AdvReac stomach Verified 01/29/23 13:57 upset, leg/back pain solifenacin AdvReac urinary Verified 01/29/23 13:57 retention Home Meds Home Medications Medication Instructions Recorded Confirmed latanoprost 0.005 % eye drops 1 drops ophthalmic (eye) HS 09/11/18 01/29/23 Pain Pump See Rx Instructions .Route .COMPLEX 11/09/19 01/29/23 guaifenesin 600 mg tablet, 600 mg PO DAILY 01/12/22 01/29/23 extended release 12 hr (Mucinex) wheat dextrin 3 gram/3.5 gram oral 1.5 g PO BID PRN 07/13/22 01/29/23 powder packet (Benefiber Clear Sugar Free(dextrin)) Previous Rx's Medication Instructions Recorded bupivacaine HCl 0.25 % (2.5 mg/mL) See Rx Instructions .Route 05/18/19 injection solution .COMPLEX #50 mL Bedside Commode 1 ea .Route .1 #1 ea 11/25/20 naloxone 4 mg/actuation nasal 4 mg intranasal Q2M PRN overdose 06/05/22 spray (Narcan) #2 ea aspirin 81 mg tablet,delayed 81 mg PO DAILY #90 tabs 07/13/22 release (Enteric Coated Aspirin) zolpidem 5 mg tablet (Ambien) 2.5 - 5 mg PO HS #30 tabs 01/15/23 glipizide 5 mg tablet, extended 5 mg PO BID #180 tabs 01/16/23 release 24 hr ondansetron 4 mg disintegrating 4 mg PO Q8H PRN nausea and 01/16/23 tablet vomiting #30 tabs pantoprazole 40 mg tablet,delayed 40 mg PO 2XWK #45 tabs 01/16/23 release (Protonix) losartan 25 mg tablet 25 mg PO DAILY #180 tabs 01/29/23 prednisone 20 mg tablet 20 mg PO DAILY #5 tabs 01/29/23 Results & Data (ED) Vital Signs Vital Signs - 24 hr 02/01/23 11:45 02/01/23 11:45 02/01/23 11:45 Temperature Temperature Source Pulse Rate 106 H Pulse Rate [Apical] Respiratory Rate 20 Respiratory Effort / Characteristics Non-Labored Non-Labored Respiratory Depth Normal Blood Pressure 121/83 Blood Pressure [Left Arm] Blood Pressure Mean 95 Blood Pressure Mean [Left Arm] Pulse Oximetry 96 96 Oxygen Delivery Method Room Air Room Air Room Air Sepsis Recent Fever Within 48 Hours No Sepsis New/Unexplained Change in Mental Status N/A Sepsis Action Taken by Nursing No Action Required 02/01/23 11:51 02/01/23 11:58 02/01/23 13:27 Temperature 36.4 C L Temperature Source Oral Pulse Rate 110 H Pulse Rate [Apical] 104 H Respiratory Rate 23 Respiratory Effort / Characteristics Non-Labored Respiratory Depth Blood Pressure Blood Pressure [Left Arm] 125/91 Blood Pressure Mean Blood Pressure Mean [Left Arm] 102 Pulse Oximetry 94 Oxygen Delivery Method Room Air Sepsis Recent Fever Within 48 Hours Sepsis New/Unexplained Change in Mental Status Sepsis Action Taken by Nursing Laboratory Data 02/01/23 11:53 02/01/23 11:53 Lab Results 02/01/23 02/01/23 Range/Units 11:53 11:53 WBC 16.67 H (4.8-10.8) K/ul RBC 4.33 L (4.70-6.10) M/uL Hgb 13.8 L (14.0-18.0) g/dl Hct 42.0 (42.0-52.0) % MCV 97.0 (80.0-100.0) fL MCH 31.9 (25.0-34.0) pg MCHC 32.9 (32.0-36.0) g/dL RDW Std Deviation 46.0 (36.4-46.3) fL RDW Coeff of Jennifer 12.9 (11.5-14.5) % Plt Count 237 (130-400) K/uL MPV 12.1 (9.4-12.4) fL Immature Gran % (Auto) 0.5 % Neut % (Auto) 69.1 % Lymph % (Auto) 23.8 % [place] % (Auto) 5.6 % Eos % (Auto) 0.5 % Baso % (Auto) 0.5 % Neut # (Auto) 11.51 H (1.40-6.50) K/uL Lymph # (Auto) 3.96 H (1.2-3.4) K/uL [place] # (Auto) 0.94 H (0.11-0.59) K/uL Eos # (Auto) 0.08 (0-0.50) K/uL Baso # (Auto) 0.09 (0-0.2) K/uL Immature Gran # (Auto) 0.09 (0.01-0.20) K/uL Sodium 135 L (136-145) mmol/L Potassium 3.9 (3.5-5.1) mmol/L Chloride 105 (98-107) mmol/L Carbon Dioxide 21 (21-32) mmol/L Anion Gap 9 (3-11) BUN 24 H (6-23) mg/dl Creatinine 1.16 (0.6-1.4) mg/dl Est Cr Clr Drug Dosing 48.8 ml/min Est GFR ( Amer) 65.3 ml/min Est GFR (Non-Af Amer) 56.3 ml/min BUN/Creatinine Ratio 20.7 H (10-20) Glucose 197 H (70-99(Fasting)) mg/dl Calcium 8.5 L (8.6-10.3) mg/dl Total Bilirubin 0.9 (0.2-1.0) mg/dl AST 32 (13-39) U/L ALT 61 H (7-52) U/L Alkaline Phosphatase 71 (34-104) U/L Troponin I High Sens 7927.2 H* (0-20) pg/ml Total Protein 7.0 (6.0-8.3) gm/dl Albumin 3.5 (3.4-5.0) gm/dl Globulin 3.5 (2.5-4.0) gm/dl Albumin/Globulin Ratio 1.0 (0.9-2) Imaging Data Radiologist's Impression: Chest X-Ray 02/01/23 12:50 XR chest 1V portable CLINICAL HISTORY: Shortness of breath. COMPARISON STUDY: Chest radiograph June 17, [address] July 19, 2020. FINDINGS: Median sternotomy wires and mediastinal surgical clip are noted. Cardiomegaly is unchanged. There is no evidence for pulmonary edema. No pneumothorax or pleural effusion. Elevation of the right hemidiaphragm is unchanged. No definite consolidation. There is right infrahilar opacity. IMPRESSION: 1. Equivocal right infrahilar opacity. This is likely artifactual however a focus of pneumonia could appear similar. Radiographic follow-up is recommended. 2. Cardiomegaly. No evidence for pulmonary edema. ACT 112: Negative or not required by law. Electronically signed by: Benton Mcgrath M.D. 02/01/2023 1:44 PM Discharge Plan Visit Data Chief Complaint: Shortness of Breath/Dyspnea ED Provider: Irving De Oliveira Discharge Problem: Fatigue, Viral illness, Elevated troponin, Acute dyspnea Patient Disposition: Being Evaluated by Hospitalist Forms Stand Alone Forms: [facility], [facility] Emergency Department, Important Visit Information Prescriptions Prescriptions: No Action guaifenesin [Mucinex] 600 mg tablet extended release 12hr 600 mg PO DAILY latanoprost 0.005 % drops 1 drops OP HS Narcan 4 mg/actuation spray,non-aerosol 4 mg intranasal Q2M PRN (Reason: overdose) Qty: 2 1RF Rx Instructions: spray 1 dose into ONE nostril; alternate nostrils w each dose until help arrives Benefiber Clear SF (dextrin) 3 gram/3.5 gram powder in packet 1.5 g PO BID PRN Rx Instructions: mix into at least 4 oz water or juice before administering bupivacaine HCl 0.25 % (2.5 mg/mL) solution See Rx Instructions .ROUTE .COMPLEX Qty: 50 0RF Dose Instruction: USE DIRECTED IN PUMP ; Rx Instructions: USE DIRECTED IN PUMP ; per Dr Atkinson Bedside Commode [facility] 1 ea .Route .1 Qty: 1 0RF Rx Instructions: To [facility] glipizide 5 mg tablet extended release 24hr 5 mg PO BID Qty: 180 3RF ondansetron 4 mg tablet,disintegrating 4 mg PO Q8H PRN (Reason: nausea and vomiting) Qty: 30 0RF pantoprazole [Protonix] 40 mg tablet,delayed release (DR/EC) 40 mg PO 2XWK Qty: 45 3RF aspirin [Enteric Coated Aspirin] 81 mg tablet,delayed release (DR/EC) 81 mg PO DAILY Qty: 90 3RF zolpidem [Ambien] 5 mg tablet 2.5 - 5 mg PO HS Qty: 30 0RF prednisone 20 mg tablet 20 mg PO DAILY Qty: 5 0RF losartan 25 mg tablet 25 mg PO DAILY Qty: 180 3RF Pain Pump See Rx Instructions .ROUTE .COMPLEX Rx Instructions: pain pump. morphine,clonidine and bupivacaine Referrals Referrals: Sissy Sandhu MD [Primary Care Provider] -
[2023-02-01] MEDS ORDERED: METOPROLOL TARTRATE 1 MG/ML VIAL IV STA (14:29)
--- NOTE | 2023-02-01 14:56 | History & Physical Report ---
Date of Service February 01, 2023 Assessment & Plan (1) Acute dyspnea: Plan: Dyspnea, exercise limitation; acute, unstable, improving At time of bedside assessment is with sinus rhythm, rate in the 70s. BP 114/91 and several patients at living facility are with viral illnesses Patient reports he had had a cough with yellow/green sputum production, which seems to have improved slightly today and is now with clear sputum. Feels his breathing is better, but continues with easy exercise fatigue No chest pain at any point, CAD eval troponin elevation as noted No hypoxia, breathing well on room air Viral PCR ordered, CXR with no acute findings Mild leukocytosis, although this may be due to to recent steroid treatment. Procalcitonin pending. No evidence of lobar pneumonia on CXR If viral panel negative and patient is clinically not improving, follow-up with CT. Denies recent surgery/trauma, no unilateral leg swelling, no hypoxia, heart rate is under 100, no prior history of PE/DVT CAD, history of CABG 2001, chronic. Acute elevation of troponin without chest pain. Follows with cardiology for multivessel CAD s/p CABG x3; [place] [facility] [place] Intolerant of statins, Zetia due to confusion and severe GI issues. Last LDL 118, HDL 37. last Troponin on file 06/2020, normal/undetectable at that time - Denies any history of bleeding/blood transfusions, confirmed with his -CXR: Naf, chronic R hilar abnormality unchanged from prior -WBC 16, ?steroid induced -Trop 7927, EKG sinus tachycardia [address] depression in V2/V4 worse compared to prior, last EKG 06/2020. Troponin downtrending on recheck, every 6 hours trended Echo pending. If signs of significant wall motion abnormality, troponin up trends, or patient develops chest pain start heparin GTT at that time. Received full dose aspirin in ER. Daily aspirin continued. Type II DM, chronic. Liberalized A1c goal due to age and comorbidities History of neuropathy, multifactorial with spinal stenosis Intolerant of metformin, SGLT2. 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 Basal dose decreased to 5 units while poor p.o. intake/clears pending cardiac trend Contrast Allergy - CT scan many years ago had 1 episode of convulsions/seizure when getting contrast dye. No prior hx seizures/convulsions, no subsequent history. Denies hx of antiepileptic medications. 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 Normotensive at bedside Monoclonal B-cell lymphocytosis No history of splenomegaly, cytopenia, leukocyte count less than 5000 on prior follow-up and stable over the last 3 years. Patient declined hematology/oncology follow-up, is following with routine CBC with differential and additional imaging/biopsy/flow cytometry deferred unless patient was clinical progression. Dementia - Chronic slow decline, is ordiented to name/date/place but frequently forgetful and poor medicla historian - Delirium precautions Chronic pain with intrathecal pain pump Follows with pain management Continue bupivacaine/morphine/clonidine pump No acute changes - Pain pump reviewed from 11/21/2022 note. Patient is on morphine at 0.138 mg/h, clonidine 6.43 mcg/h, bupivacaine 0.018 for milligrams per hour. Pump in place without overlying erythema or signs of dysfunction. Patient reports pain well controlled at time of admission Chronic diarrhea With suspected overflow in the past Low FODMAP diet once advanced Pt feels he has been more constipated lately, no BM in 3 days - Bowel regimen ordered BPH with nocturia/hesitancy Did not improve with Flomax/tamsulosin in the past - Pt denies urgency/hesitancy/dysuria in the last few weeks Bladder scan every shift DVT PPx: Lovenox Diet: HH/DM2 CODE: Full Dispo: PCU (2) CAD (coronary artery disease): (3) Diabetes mellitus type II, uncontrolled: (4) Dementia: (5) Gastroesophageal reflux disease: (6) Monoclonal B-cell lymphocytosis: (7) Lumbar spinal stenosis: (8) Hypertension: History of Present Illness Primary Care Provider: Sissy Sandhu MD Basilio Wiggins is an 87yo M with a PMHX of DM2, statin intolerance, GERD, HLD, Lumbar stenosis, chronic intractible pain w intrathecal pain pump, CAD who presented to the ER for fatigue, SoB, and generalized weakness. He saw his PCP on 01/29/23 for cough and was placed on prednisone for 3 days. 3 to 4 days of sinus congestion, light yellow productive cough, progressive f atigue acutely worsened 2 days ago. and other home residents with viral illness. Was placed on prednisone 3 days ago 20 mg daily. [place] had [place] blood [place] [id number], losartan was decreased from 25 mg twice daily to daily as outpatient. Seen in the ER today. Limited historian. Reports coughing spells for 4-5 days, placed on prednisone, no improvement. Prednisone made him feel worse hasn't taken it in a day or two. Woke up this morning and felt much more weak than normal, poor energy and came to ER. Feels more winded walking around. Denies orthopnea, able to lay flat. Sleeping poorly since Saturday. No leg swelling. Oriented to year, place, name. Took medications this morning, BP meds recently decreased. BP 114/91. Cough improved last 2 days +constipation, no BM in 3 days. NO recent hematochezia/melena No nausea/vomiting. Eating and drinking normally No night sweats Lives in [facility]. 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 No history of afib or aflutter. No blood thinners. No history of stents. Denies hx of seizure or contrast allergy. Per 3 days ago had a fall, no injuries and didn't lose conciousness but felt tired. Is not sure if he tripped, pt and think he turned and slipped due to LE neuropathy 2/2 DM and lumbar stenosis. NO recent fevers, chills. notes his BP has been 140s with O2 level >94 at home but patient may have seemd 'a ltitle warm to the touch' in the last day or two. No recent anginal sx per patient or his . Medical History: Reviewed Medications: Reviewed Surgical History: Reviewed Family history: Reviewed Allergies: Reviewed Social History: No tobacco/etoh Code Status:DNR/DNI Allergies Allergy/AdvReac Type Severity Reaction Status Date / Time hydrochlorothiazide Allergy Severe Hives Verified 01/29/23 13:57 Iodinated Contrast Media Allergy Severe Convulsions Verified 01/29/23 13:57 adhesive Allergy Intermediate RASH;PULLS Verified 01/29/23 13:57 SKIN OFF levofloxacin Allergy Mild HIVES, Verified 01/29/23 13:57 PRURITIS NSAIDS (Non-Steroidal Allergy Mild Elevated BP Verified 01/29/23 13:57 Anti-Inflamma amiodarone Allergy Unknown RASH Verified 01/29/23 13:57 cephalexin Allergy Unknown AFTER 14 Verified 01/29/23 13:57 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 Dhufdbs-ZNC-WgM Reductase Allergy Unknown Unknown Verified 01/29/23 13:57 Inhibitor [Dfzjcdy-Fwy-Mzj Reductase Inhibitor] terazosin [From Hytrin] Allergy Unknown Unknown Verified 01/29/23 13:57 doxycycline AdvReac Severe Severe Verified 01/29/23 13:57 stomach pain, headaches Cephalosporins AdvReac Intermediate nausea Verified 01/29/23 13:57 after repeated dose nifedipine AdvReac Intermediate Sick to Verified 01/29/23 13:57 stomach atorvastatin AdvReac Unknown MUSCLE Verified 01/29/23 13:57 ACHES ezetimibe AdvReac stomach Verified 01/29/23 13:57 upset, leg/back pain solifenacin AdvReac urinary Verified 01/29/23 13:57 retention Home Medications Medication Instructions Recorded Confirmed Type latanoprost 0.005 % eye drops 1 drops ophthalmic (eye) HS 09/11/18 01/29/23 History bupivacaine HCl 0.25 % (2.5 mg/mL) See Rx Instructions .Route 05/18/19 01/29/23 Rx injection solution .COMPLEX #50 mL Pain Pump See Rx Instructions .Route .COMPLEX 11/09/19 01/29/23 History Bedside Commode 1 ea .Route .1 #1 ea 11/25/20 01/29/23 Rx guaifenesin 600 mg tablet, 600 mg PO DAILY 01/12/22 01/29/23 History extended release 12 hr (Mucinex) naloxone 4 mg/actuation nasal 4 mg intranasal Q2M PRN overdose 06/05/22 01/29/23 Rx spray (Narcan) #2 ea aspirin 81 mg tablet,delayed 81 mg PO DAILY #90 tabs 07/13/22 01/29/23 Rx release (Enteric Coated Aspirin) wheat dextrin 3 gram/3.5 gram oral 1.5 g PO BID PRN 07/13/22 01/29/23 History powder packet (Benefiber Clear Sugar Free(dextrin)) zolpidem 5 mg tablet (Ambien) 2.5 - 5 mg PO HS #30 tabs 01/15/23 01/29/23 Rx glipizide 5 mg tablet, extended 5 mg PO BID #180 tabs 01/16/23 01/29/23 Rx release 24 hr ondansetron 4 mg disintegrating 4 mg PO Q8H PRN nausea and 01/16/23 01/29/23 Rx tablet vomiting #30 tabs pantoprazole 40 mg tablet,delayed 40 mg PO 2XWK #45 tabs 01/16/23 01/29/23 Rx release (Protonix) losartan 25 mg tablet 25 mg PO DAILY #180 tabs 01/29/23 01/29/23 Rx prednisone 20 mg tablet 20 mg PO DAILY #5 tabs 01/29/23 01/29/23 Rx Past Med/Surg History Medical History Acute and chronic respiratory failure with hypoxia Cataracts, bilateral Falls Glaucoma History of heart attack History of skin cancer Incisional hernia Lumbar postlaminectomy syndrome Lung nodule Monoclonal B-cell lymphocytosis Right lower lobe pneumonia Statin intolerance Tinnitus of both ears Umbilical hernia 2007 Urinary retention Surgical History H/O umbilical hernia repair History of appendectomy 1947 History of back surgery x4 laminectomy 1984; AL Fusion L5-S1 1988; L4, L5 S1 [id number]; History of carpal tunnel surgery History of cataract surgery S/P CABG x 3 S/P triple vessel bypass 2001 Status post left foot surgery Status post right partial knee replacement partial 2005 Surgery, elective Neurol drug infusion implantation of programmable pump 2010 Family History Mother Stroke Coronary heart disease Hypertension Osteoarthritis Rheumatoid arthritis Heart disease Myocardial infarction Father Coronary heart disease Heart disease Sister Familial tremor Grandfather Heart disease Uncle Heart disease Other Family history non-contributory Denies family history of Ovarian cancer Prostate cancer Diabetes Breast cancer Lung cancer Colorectal cancer Social History Smoking Status: Former smoker Tobacco Type: Cigarettes Second Hand Exposure: No; Do You Dip or Chew Tobacco: No; Hx Alcohol Use: Yes (Occasional ) Alcohol type: wine Alcohol Intake Frequency: Monthly or Less Hx Substance Use: No Preferred Language: Bhutanese Communication Ability: Effective Visual Impairment: Limited Hearing Ability: Normal 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 NAD. Cooperative. HEENT: Atraumatic, normocephalic. Vision/hearing intact. ROCCO. Pulm: CTAB A&P. -wheezes, -rales, -rhonchi. Symmetrical chest rise. No increased work of breathing. No respiratory distress. Cardiac: Midline sternal scar well healed. RRR, -mrg. Radial pulses intact and symmetrical. Abdominal: Nontender, nondistended, soft. BS present. Ext: No LE edema. Sensation diminished in plantar feet bilaterally, but intact and symmetrical. Ankle dorsiflexion/plantarflexion 4/5 bilaterally, hip flexion 5/5 bilaterally. Reading Specialist strength 5/5 bilaterally. Radial pulse intact bilaterally Results & Data Results & Data Vital Signs (Past 12 Hours) Vital Signs Temp Pulse Pulse Resp BP BP Pulse Ox 02/01/23 14:45 96 H 14 114/91 94 02/01/23 14:41 108 H 107/81 02/01/23 13:27 104 H 23 125/91 94 02/01/23 11:58 36.4 C L 02/01/23 11:51 110 H 02/01/23 11:45 96 02/01/23 11:45 02/01/23 11:45 106 H 20 121/83 96 O2 Del Method 02/01/23 14:45 Room Air 02/01/23 14:41 02/01/23 13:27 Room Air 02/01/23 11:58 02/01/23 11:51 02/01/23 11:45 Room Air 02/01/23 11:45 Room Air 02/01/23 11:45 Room Air PG Care Time/CCT Total # of Minutes Spent Total Time Spent with Patient: Total time spent is greater than 50% in coordination of care (as documented) at patient's floor/unit and/or counseling patient: Coding Level of Care Code 16920 INT INP/OBS CARE 3/75MIN Diagnoses Acute dyspnea R06.00 CAD (coronary artery disease) I25.10 Associated angina: without angina Coronary Disease-Associated Artery/Lesion type: [place] artery [place] vs. transplanted heart: [place] heart Diabetes mellitus type II, uncontrolled E11.65 Glycemic state: with hyperglycemia Dementia F03.90 Dementia behavioral disturbance: without behavioral disturbance Dementia type: unspecified type Gastroesophageal reflux disease K21.9 Esophagitis presence: esophagitis presence not specified Monoclonal B-cell lymphocytosis D72.820 Lumbar spinal stenosis M48.061 Neurogenic claudication status: unspecified Hypertension I10 (2) CAD (coronary artery disease) Associated angina: without angina Coronary Disease-Associated Artery/Lesion type: [place] artery [place] vs. transplanted heart: [place] heart Qualified Code(s): I25.10 - Atherosclerotic heart disease of [place] coronary artery without angina pectoris (3) Diabetes mellitus type II, uncontrolled Glycemic state: with hyperglycemia Qualified Code(s): E11.65 - Type 2 diabetes mellitus with hyperglycemia (4) Dementia Dementia behavioral disturbance: without behavioral disturbance Dementia type: unspecified type Qualified Code(s): F03.90 - Unspecified dementia without behavioral disturbance (5) Gastroesophageal reflux disease Esophagitis presence: esophagitis presence not specified Qualified Code(s): K21.9 - Gastro-esophageal reflux disease without esophagitis (7) Lumbar spinal stenosis Neurogenic claudication status: unspecified Qualified Code(s): M48.061 - Spinal stenosis, lumbar region without neurogenic claudication
[2023-02-01 16:20] LABS: Adenovirus PCR Not Detected (NotDetected); Bordetella parapertussis PCR Not Detected (NotDetected); Bordetella pertussis PCR Not Detected (NotDetected); Chlamydia pneumoniae PCR Not Detected (NotDetected); Coronavirus 229E PCR Not Detected (NotDetected); Coronavirus CoV-2 (COVID19)PCR Not Detected (NotDetected); Coronavirus HKU1 PCR Not Detected (NotDetected); Coronavirus NL63 PCR Not Detected (NotDetected); Coronavirus OC43PCR Not Detected (NotDetected); Human Metapneumovirus PCR Not Detected (NotDetected); Influenza A PCR Not Detected (NotDetected); Influenza B PCR Not Detected (NotDetected); Mycoplasma pneumoniae PCR Not Detected (NotDetected); Parainfluenza Virus 1 PCR Not Detected (NotDetected); Parainfluenza Virus 2 PCR Not Detected (NotDetected); Parainfluenza Virus 3 PCR Not Detected (NotDetected); Parainfluenza Virus 4 PCR Not Detected (NotDetected); Respiratory Syncytial VirusPCR Not Detected (NotDetected); Rhinovirus/Enterovirus PCR Not Detected (NotDetected)
[2023-02-01] MEDS ORDERED: DEXTROSE 50% 50 ML SYRINGE IV PRN (18:05)
[2023-02-01] MEDS ORDERED: CARBOHYDRATES FOR HYPOGLYCEMIA PO PRN (18:05)
[2023-02-01] MEDS ORDERED: GLUCAGON FOR INJ 1 MG VIAL SQ PRN (18:05)
[2023-02-01] MEDS ORDERED: GLUCOSE 10 TAB/TUBE PO PRN (18:05)
[2023-02-01] MEDS ORDERED: bisacodyL 5 MG TABEC PO PRN (18:05)
[2023-02-01] MEDS ORDERED: GLUCOSE 40% GEL 15 GM TUBE PO PRN (18:05)
[2023-02-01] MEDS ORDERED: NITROGLYCERIN SL 0.4 MG/TAB TAB SL PRN (18:05)
[2023-02-01] MEDS ORDERED: BUPIVACAINE IT SCH (18:30)
[2023-02-01] MEDS ORDERED: CLONIDINE IT SCH (18:30)
[2023-02-01] MEDS ORDERED: MORPHINE IT SCH (18:30)
[2023-02-01] MEDS: INSULIN ASPART PER UNIT CHARGE SC SCH ×2 (18:36→21:30)
[2023-02-01 19:13] LABS: Partial Thromboplastin Time 27.3 Seconds (21.0-31.0)
--- NOTE | 2023-02-01 19:26 | XCELERA ---
[id number] \\[id number]
[2023-02-01] MEDS ORDERED: Heparin IV Adult Wt-Based Standard WITH Bolus Protocol IV SCH (19:51)
[2023-02-01] MEDS ORDERED: HEPARIN SOD (PORCINE) 1000 UNIT/ML IV ONE (19:52)
[2023-02-01] MEDS ORDERED: HEPARIN IV BOLUS 6,000 UNITS in SYRINGE 0 ML IV ONE (20:45)
[2023-02-01] MEDS: LATANOPROST 0.005% OP SOLN 2.5 ML BTL OP SCH (21:26)
[2023-02-01] MEDS: HEPARIN SODIUM/DEXTROSE 25,000 UNITS/500 ML BAG IV SCH (21:29)
[2023-02-01] MEDS: LANTUS PER UNIT CHARGE SQ SCH (21:30)
[2023-02-02 04:16] LABS: Albumin Level 3.3 gm/dl (3.4-5.0); BUN Creatinine Ratio 17.1 (10-20); Bilirubin,Total 0.8 mg/dl (0.2-1.0); Calcium 8.4 mg/dl (8.6-10.3); Creatinine Clr Calc Pharmacy 47.8 ml/min; Est GFR (African American) 64.6 ml/min; Est GFR (Non-African American) 55.7 ml/min; Globulin 3.2 gm/dl (2.5-4.0); Potassium 3.8 mmol/L (3.5-5.1); Total Protein 6.5 gm/dl (6.0-8.3)
[2023-02-02 04:21] LABS: Basophils % (auto) 0.6 %; Eosinophils # (auto) 0.24 K/uL (0-0.50); Eosinophils % (auto) 1.5 %; Hematocrit (blood only) 38.9 % (42.0-52.0); Hemoglobin 12.8 g/dl (14.0-18.0); Immature Granulocytes # (auto) 0.11 K/uL (0.01-0.20); Immature Granulocytes % (auto) 0.7 %; Lymphocytes # (auto) 4.51 K/uL (1.2-3.4); Lymphocytes % (auto) 28.8 %; Mean Corpuscular Hemoglobin 31.7 pg (25.0-34.0); Mean Corpuscular Hgb Conc 32.9 g/dL (32.0-36.0); Mean Corpuscular Volume 96.3 fL (80.0-100.0); Mean Platelet Volume 11.9 fL (9.4-12.4); Monocytes # (auto) 0.98 K/uL (0.11-0.59); Monocytes % (auto) 6.3 %; Neutrophils # (auto) 9.71 K/uL (1.40-6.50); Neutrophils % (auto) 62.1 %; Platelet Count 235 K/uL (130-400); RDW Coefficient of Variation 12.9 % (11.5-14.5); RDW Standard Deviation 45.9 fL (36.4-46.3); Red Blood Count 4.04 M/uL (4.70-6.10); White Blood Count 15.65 K/ul (4.8-10.8)
[2023-02-02 04:28] LABS: Troponin I High Sensitivity 7970.2 pg/ml (0-20)
[2023-02-02 04:43] LABS: Partial Thromboplastin Ratio 1.9
[2023-02-02 04:50] LABS: Partial Thromboplastin Time 53.4 Seconds (21.0-31.0)
--- NOTE | 2023-02-02 06:52 | Electrocardiogram Report ---
Test Reason : Blood Pressure : / mmHG Vent. Rate : 107 BPM Atrial Rate : 107 BPM P-R Int : 200 ms QRS Dur : 098 ms QT Int : 336 ms P-R-T Axes : 104 -34 120 degrees QTc Int : 448 ms Sinus tachycardia with frequent Premature ventricular complexes Premature atrial complexes Left axis deviation Inferior infarct (cited on or before 24-JUL-2002) Nonspecific ST and T wave abnormality Abnormal ECG When compared with ECG of 17-JUL-2020 13:12, Premature ventricular complexes are now Present Premature atrial complexes are now Present MA interval has decreased Confirmed by Alcides Tinoco ([id number]) on 02/02/2023 6:51:44 AM Referred By: Confirmed By:Alcides Tinoco
--- NOTE | 2023-02-02 07:36 | Hospitalist Progress Note ---
Date of Service February 02, 2023 Assessment & Plan (1) CAD (coronary artery disease): Plan: - Follows with cardiology for multivessel CAD s/p CABG x3; [place] [facility] [place] - Intolerant of statins, Zetia due to confusion and severe GI issues. Last LDL 118, HDL 37 - last Troponin on file 06/2020, normal/undetectable at that time - Denies any history of bleeding/blood transfusions, confirmed with his - Trop 7927 and downtrending, EKG sinus tachycardia [address] depression in V2/V4 worse compared to prior, last EKG 06/2020 - Echo with evidence of wall motion abnormalities in the inferior wall, inferolateral wall, anterolateral wall, base and mid anterior wall - Continue heparin gtt, aspirin, Coreg, Entresto - Plan for likely cardiac catheterization, possibly Saturday - Cardiology consulted and appreciate recommendations, case discussed with Dr. Win (2) HFrEF (heart failure with reduced ejection fraction): Plan: - Echocardiogram 02/01/23 with mildly dilated LV with severely reduced EF 25-30%, without prior study for comparison, however previously reported in EMR that patient had normal LV function - No evidence of CHF exacerbation - Likely catheterization on Saturday as above - Continue Entresto, Coreg - Can consider Jardiance in the future (3) Acute dyspnea: Plan: - and several patients at living facility are with viral illnesses - No hypoxia, breathing well on room air, no evidence of fluid overload - Viral PCR negative, CXR with no acute findings - Mild leukocytosis, although this may be due to to recent steroid treatment. Procalcitonin not elevated - Dyspnea with exertion suspected secondary to CAD/cardiomyopathy, evaluation of such as above (4) Diabetes mellitus type II, uncontrolled: Plan: - Liberalized A1c goal due to age and comorbidities - History of neuropathy, multifactorial with spinal stenosis - Intolerant of metformin, SGLT2. 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 Patient declined hematology/oncology follow-up, and is following with routine CBC with di fferential - Additional imaging/biopsy/flow cytometry deferred unless patient was clinical progression. (8) Lumbar spinal stenosis: Plan: - Follows with pain management - Continue bupivacaine/morphine/clonidine pump - Patient is on morphine at 0.138 mg/h, clonidine 6.43 mcg/h, bupivacaine 0.018 for milligrams per hour (9) Hypertension: Plan: - Continue Coreg, losartan, Entresto (10) Diarrhea: Plan: - With suspected overflow in the past - Pt feels he has been more constipated lately, no BM in 3 days - Bowel regimen ordered (11) BPH with urinary obstruction: Plan: - Did not improve with Flomax/tamsulosin in the past - Pt denies urgency/hesitancy/dysuria in the last few weeks - Bladder scan qshift Plan Continue heparin gtt. Heart healthy, low sodium diet. Patient is a full code at this time. May need PT/OT before discharge, no weight bearing (except normal walking) to left foot. Patient's alerted me that if patient needs rehab on discharge they do not want [facility] due to poor experience of /friend. Admission and Anticipated Discharge Date Admission Date: February 01, 2023 Subjective Patient without any acute worsening of symptoms overnight. He was noted by nursing staff to be having some episodes of wide-complex tachycardia, asymptomatic, short-lived this morning. Also noted to have frequent PVCs. Patient himself reports that his breathing is actually better now than it was when he came in, denies chest pain or pressure, and reports that he is hungry. No other complaints. Review of Systems Review of Systems: All systems reviewed & are unremarkable except as noted in Subjective Physical Exam Constitutional: WD/WN, vitals as above Respiratory: normal respiratory effort, lungs clear to auscultation Cardiovascular: RRR, no murmur, no edema Gastrointestinal (Abdomen): normal bowel sounds, soft, nontender, no hepatosplenomegaly Skin: no rashes, warm and dry Psychiatric: A+Ox3, euthymic affect Results & Data Results & Data Vital Signs (Past 12 Hours) Vital Signs Temp Pulse Pulse Resp BP Pulse Ox O2 Del Method 02/02/23 07:27 36.8 C 128 H 20 114/80 96 Room Air 02/02/23 01:42 36.8 C 100 H 18 128/70 94 Room Air 02/01/23 23:44 Room Air 02/01/23 22:00 90 02/01/23 23:04 36.8 C 98 H 18 104/68 95 Room Air PG Care Time/CCT Total # of Minutes Spent Total Time Spent with Patient: Total time spent is greater than 50% in coordination of care (as documented) at patient's floor/unit and/or counseling patient: Coding Level of Care Code 03877 SUB INP/OBS CARE 3/50MIN Diagnoses CAD (coronary artery disease) I25.10 Associated angina: without angina Coronary Disease-Associated Artery/Lesion type: [place] artery [place] vs. transplanted heart: [place] heart HFrEF (heart failure with reduced ejection fraction) I50.20 Acute dyspnea R06.00 Diabetes mellitus type II, uncontrolled E11.65 Glycemic state: with hyperglycemia Dementia F03.90 Dementia behavioral disturbance: without behavioral disturbance Dementia type: unspecified type Gastroesophageal reflux disease K21.9 Esophagitis presence: esophagitis presence not specified Monoclonal B-cell lymphocytosis D72.820 Lumbar spinal stenosis M48.061 Neurogenic claudication status: unspecified Hypertension I10 Diarrhea R19.7 BPH with urinary obstruction N40.1; N13.8 (1) CAD (coronary artery disease) Associated angina: without angina Coronary Disease-Associated Artery/Lesion type: [place] artery [place] vs. transplanted heart: [place] heart Qualified Code(s): I25.10 - Atherosclerotic heart disease of [place] coronary artery without angina pectoris (4) Diabetes mellitus type II, uncontrolled Glycemic state: with hyperglycemia Qualified Code(s): E11.65 - Type 2 diabetes mellitus with hyperglycemia (5) Dementia Dementia behavioral disturbance: without behavioral disturbance Dementia type: unspecified type Qualified Code(s): F03.90 - Unspecified dementia without behavioral disturbance (6) Gastroesophageal reflux disease Esophagitis presence: esophagitis presence not specified Qualified Code(s): K21.9 - Gastro-esophageal reflux disease without esophagitis (8) Lumbar spinal stenosis Neurogenic claudication status: unspecified Qualified Code(s): M48.061 - Spinal stenosis, lumbar region without neurogenic claudication
[2023-02-02] MEDS: PANTOprazole 40 MG TAB PO SCH (07:41)
[2023-02-02] MEDS: ASPIRIN 81 MG ECTAB PO SCH (07:41)
[2023-02-02] MEDS: POLYETHYLENE (MIRALAX) 17 GM PACK PO SCH (07:41)
[2023-02-02] MEDS: INSULIN ASPART PER UNIT CHARGE SC SCH ×4 (07:44→20:37)
[2023-02-02] MEDS: LANTUS PER UNIT CHARGE SQ SCH ×2 (07:47→20:37)
[2023-02-02] MEDS ORDERED: LOSARTAN POTASSIUM 25 MG TAB PO SCH (09:00)
--- NOTE | 2023-02-02 13:24 | Cardiology Consultation ---
Date of Consultation February 02, 2023 Assessment & Plan (1) Elevated troponin: (2) CAD (coronary artery disease): (3) Cardiomyopathy: (4) Acute dyspnea: (5) Hypercholesterolemia: (6) PAT (paroxysmal atrial tachycardia): Plan 1. Elevated troponin: His troponin is markedly elevated, however there is no evidence for ST segment elevation myocardial infarction. I would therefore not be inclined to take him emergently to laboratory in view of lack of ischemic symptoms and enzyme pattern not suggestive of acute myocardial infarction. There is evidence however that this may indicate progressive coronary artery disease, he does have left ventricular dysfunction which appears to be new but do not see recent studies to determine a timeframe. I doubt this is all new and probably has been present for at least some time. I would therefore continue to follow for the moment as we evaluate his other issues as well as his coronary disease. 2. Coronary disease: He has known coronary disease but historically has had normal left ventricular function but I do not think any recent evaluation. His left ventricular dysfunction wall motion abnormalities could be of some age, but do suggest that he has progression of coronary disease. This should be evaluated. We can consider cardiac catheterization (possibly Saturday) versus stress testing, with his known coronary disease I am not inclined to do stress testing and I would favor cardiac catheterization. He is agreeable to this. 3. Cardiomyopathy: He has a significant cardiomyopathy but without recent studies I cannot determine when this might have occurred. Apparently it was not present historically. He is not on very many medications for it, I believe he is on low-dose losartan but not a beta-olinda. I would recommend treating his cardiomyopathy with guideline directed medical therapy which would include beta- blockade and I would favor Entresto and consideration of Jardiance. I am going to start low-dose carvedilol and low-dose Entresto and discontinue his losartan. It is conceivable although not likely that some of his left ventricular dysfunction is due to a persistent atrial tachycardia that he seems to have. 4. Dyspnea: Some of this could be heart failure symptoms, he is not in congestive heart failure on chest x-ray so most of this might be a viral illness not cardiac in nature. Dyspnea on exertion can also be an anginal equivalent. From the cardiac standpoint I would treat him for heart failure with medications as noted above and we will investigate ischemia as a cause as noted above. 5. Dyslipidemia: I understand he is statin intolerant which would increase his odds of having had progression of coronary artery disease. 6. PAT: He has some type of atrial arrhythmia on electrocardiography and telemetry, I do not see clear P waves but it is quite regular so I do not suspect atrial fibrillation, I do not believe it is atrial flutter. I think it is some type of atrial tachycardia. I am going to increase his beta-olinda to see whether we can control it, I added carvedilol in the early afternoon today and I will increase the dose this evening. If we cannot get control of this intravenous amiodarone might be a reasonable option, his rapid heart rates are probably not good with his suspected ischemia. History of Present Illness Reason for Consultation: Elevated troponin, left ventricular dysfunction Attending Physician: Brandi Causey, History of Present Illness This is an 87-year-old male with a history of hypertension, hypercholesterolemia and coronary artery disease. He had bypass surgery in 2001. He is quite limited in activity requiring a walker or a wheelchair. He presented to the emergency room on February 01, 2023 with fatigue and shortness of breath as well as generalized weakness and a cough. His white count was quite elevated but he has been using prednisone recently for the shortness of breath. He specifically has not had chest discomfort. An ECG on presentation demonstrates sinus tachycardia with frequent premature atrial and premature ventricular beats, and age indeterminant inferior myocardial infarction and anterolateral ST-T abnormalities. An echocardiogram done February 01, 2023 demonstrates a mildly dilated left ventricle with severe left ventricular dysfunction and ejection fraction of 25 to 30%. He does have wall motion abnormalities in the inferior wall, inferolateral wall, anterolateral wall, base and mid anterior wall. Moderate concentric left ventricular hypertrophy and mild mitral regurgitation. The most recent comparison then I am aware of was in 2007 where he had a stress echo which showed an ejection fraction of 55% and no ischemia. Serial troponins were done, on presentation the high sensitive troponin was 7927, that peaked at 8166 11 hours later and 24 hours after presentation was 5872. His chest x-ray shows a possible infrahilar opacity on the right which is likely an artifact, cardiomegaly without pulmonary edema. Other electrocardiogram show some type of atrial rhythm with right bundle branch block aberrancy when the rate is fast which it often is. I cannot tell from the electrocardiogram what this rhythm is, based on his ECGs with frequent premature atrial beats I suspect it is an atrial tachycardia but appears to be some type of supraventricular rhythm. I do not see that in his history and he does not seem aware of it. I discussed his presenting symptoms with him, he confirms that he had no chest discomfort and does not recall having chest discomfort in the recent past either. His symptoms were a little bit more short of breath with activities, he does not have orthopnea or PND and in fact at the time my evaluation was laying supine in bed. He has noted no leg swelling. Allergies Allergy/AdvReac Type Severity Reaction Status Date / Time hydrochlorothiazide Allergy Severe Hives Verified 01/29/23 13:57 Iodinated Contrast Media Allergy Severe Convulsions Verified 01/29/23 13:57 adhesive Allergy Intermediate RASH;PULLS Verified 01/29/23 13:57 SKIN OFF levofloxacin Allergy Mild HIVES, Verified 01/29/23 13:57 PRURITIS NSAIDS (Non-Steroidal Allergy Mild Elevated BP Verified 01/29/23 13:57 Anti-Inflamma amiodarone Allergy Unknown RASH Verified 01/29/23 13:57 cephalexin Allergy Unknown AFTER 14 Verified 01/29/23 13:57 DAYS-DEVELOPED GASTRITIS-2017 Spqdgri-HSS-EaI Reductase Allergy Unknown Unknown Verified 01/29/23 13:57 Inhibitor [Xihercf-Kcz-Drn Reductase Inhibitor] terazosin [From Hytrin] Allergy Unknown Unknown Verified 01/29/23 13:57 doxycycline AdvReac Severe Severe Verified 01/29/23 13:57 stomach pain, headaches Cephalosporins AdvReac Intermediate nausea Verified 01/29/23 13:57 after repeated dose nifedipine AdvReac Intermediate Sick to Verified 01/29/23 13:57 stomach atorvastatin AdvReac Unknown MUSCLE Verified 01/29/23 13:57 ACHES ezetimibe AdvReac stomach Verified 01/29/23 13:57 upset, leg/back pain solifenacin AdvReac urinary Verified 01/29/23 13:57 retention Home Medications Medication Instructions Recorded Confirmed Type bupivacaine HCl 0.25 % (2.5 mg/mL) See Rx Instructions .Route 05/18/19 02/01/23 Rx injection solution .COMPLEX #50 mL guaifenesin 600 mg tablet, 600 mg PO DAILY 01/12/22 02/01/23 History extended release 12 hr (Mucinex) aspirin 81 mg tablet,delayed 81 mg PO DAILY #90 tabs 07/13/22 02/01/23 Rx release (Enteric Coated Aspirin) wheat dextrin 3 gram/3.5 gram oral 1.5 g PO BID PRN .. 07/13/22 02/01/23 History powder packet (Benefiber Clear Sugar Free(dextrin)) glipizide 5 mg tablet, extended 5 mg PO BID #180 tabs 01/16/23 02/01/23 Rx release 24 hr losartan 25 mg tablet 25 mg PO DAILY #180 tabs 01/29/23 02/01/23 Rx prednisone 20 mg tablet 20 mg PO DAILY #5 tabs 01/29/23 02/01/23 Rx Bifidobacterium infantis 4 mg 4 mg PO DAILY 02/01/23 02/01/23 History capsule (Align) magnesium oxide 400 mg PO QPM 02/01/23 02/01/23 History pantoprazole 40 mg tablet,delayed 40 mg PO DAILY 02/01/23 02/01/23 History release (Protonix) zolpidem 5 mg tablet (Ambien) 5 mg PO HS 02/01/23 02/01/23 History Patient History Medical History Acute and chronic respiratory failure with hypoxia Cataracts, bilateral Falls Glaucoma History of heart attack History of skin cancer Incisional hernia Lumbar postlaminectomy syndrome Lung nodule Monoclonal B-cell lymphocytosis Right lower lobe pneumonia Statin intolerance Tinnitus of both ears Umbilical hernia 2006 Urinary retention Surgical History H/O umbilical hernia repair History of appendectomy 1947 History of back surgery x4 laminectomy 1984; AL Fusion L5-S1 1988; L4, L5 S1 [id number]; History of carpal tunnel surgery History of cataract surgery S/P CABG x 3 S/P triple vessel bypass 2001 Status post left foot surgery Status post right partial knee replacement partial 2005 Surgery, elective Neurol drug infusion implantation of programmable pump 2010 Family History Mother Stroke Coronary heart disease Hypertension Osteoarthritis Rheumatoid arthritis Heart disease Myocardial infarction Father Coronary heart disease Heart disease Sister Familial tremor Grandfather Heart disease Uncle Heart disease Other Family history non-contributory Denies family history of Ovarian cancer Prostate cancer Diabetes Breast cancer Lung cancer Colorectal cancer Social History Smoking Status: Former smoker Tobacco Type: Cigarettes Second Hand Exposure: No; Do You Dip or Chew Tobacco: No; Tobacco Cessation Education Requested by Patient: No Hx Alcohol Use: Yes Alcohol type: wine Alcohol Intake Frequency: Monthly or Less Hx Substance Use: No Preferred Language: Albanian Communication Ability: Effective Visual Impairment: Limited Hearing Ability: Normal Saxophone Assembler Required: No Beliefs That Will Affect Care: None marital status: Current Living Situation: Spouse Current Living Situation Comment: lives at [facility] current occupational status: retired How many Children do You have: 3 Other Information That Helps Us Care for You: No Feels Safe at Home: Yes Safety Concerns: Feels Safe At This Time Childhood Exposure to Second-Hand Smoke: Yes caffeine: Yes Dental Care, Regularly: Yes Physical Activity Frequency: Does not Exercise Seatbelt Use: always Sunscreen Use: Yes Assistive Devices: Other Assistive Devices Comment: doesn't wear dentures Physical Exam Physical Exam: Constitutional: Alert, cooperative and in no distress. HEENT: Unremarkable Neck: No jugular venous distention, carotid pulses are normal and equal bilaterally without bruits. Pulmonary: Clear to auscultation bilaterally. Cardiac: Regular rhythm with frequent premature beats and no murmur, gallop or rub. Abdomen: Soft, nontender with normal bowel sounds. Extremities: No edema. Distal pulses intact. Neurologic: No focal findings. Gait was not tested. Skin: No rash, ecchymoses or petechiae. Results & Data Vital Signs (Past 12 Hours) Vital Signs Temp Pulse Resp BP Pulse Ox O2 Del Method 02/02/23 11:54 36.8 C 90 18 119/77 95 Room Air 02/02/23 08:00 Room Air 02/02/23 07:27 36.8 C 128 H 20 114/80 96 Room Air 02/02/23 01:42 36.8 C 100 H 18 128/70 94 Room Air Laboratory Results Cardiac Enzymes 02/01/23 02/01/23 02/01/23 Range/Units 11:53 15:22 22:41 AST (13-39) U/L Troponin I High Sens 7927.2 H* 7159.5 H* 8165.9 H* (0-20) pg/ml 02/02/23 02/02/23 Range/Units 03:46 10:26 AST 26 (13-39) U/L Troponin I High Sens 7970.2 H* 5872.7 H* D (0-20) pg/ml Coagulation 02/01/23 02/02/23 Range/Units 18:15 03:46 APTT 27.3 53.4 H* (21.0-31.0) Seconds CBC 02/02/23 Range/Units 03:46 WBC 15.65 H (4.8-10.8) K/ul RBC 4.04 L (4.70-6.10) M/uL Hgb 12.8 L (14.0-18.0) g/dl Hct 38.9 L (42.0-52.0) % Plt Count 235 (130-400) K/uL Neut # (Auto) 9.71 H (1.40-6.50) K/uL Lymph # (Auto) 4.51 H (1.2-3.4) K/uL [place] # (Auto) 0.98 H (0.11-0.59) K/uL Eos # (Auto) 0.24 (0-0.50) K/uL Baso # (Auto) 0.10 (0-0.2) K/uL Comprehensive Metabolic Panel 02/02/23 Range/Units 03:46 Sodium 136 (136-145) mmol/L Potassium 3.8 (3.5-5.1) mmol/L Chloride 105 (98-107) mmol/L Carbon Dioxide 23 (21-32) mmol/L BUN 20 (6-23) mg/dl Creatinine 1.17 (0.6-1.4) mg/dl Glucose 176 H (70-99(Fasting)) mg/dl Calcium 8.4 L (8.6-10.3) mg/dl AST 26 (13-39) U/L ALT 48 (7-52) U/L Alkaline Phosphatase 56 (34-104) U/L Total Protein 6.5 (6.0-8.3) gm/dl Albumin 3.3 L (3.4-5.0) gm/dl Intake and Output 02/01/23 02/02/23 02/02/23 22:59 06:59 14:59 Intake Total 275.95 / 275.95 Balance 275.95 / 275.95 Intake: IV 175.95 / 175.95 Heparin Sodium/Dextrose 25,000 175.95 / 175.95 units In 500 ml @ 1,350 UNITS/ HR 27 mls/hr IV .[id number] [facility] Rx #:[id number] Oral 100 / 100 Other: Other Intake Source sips Weight 94.3 kg 94.3 kg Weight Measurement Method Built in [facility] Diagnostic Findings Telemetry: Sinus rhythm with frequent premature atrial and ventricular beats as well as frequent periods of what appears to be an atrial tachycardia with a heart rate of 125 bpm or more, generally with an aberrant pattern. PG Care Time/CCT Total # of Minutes Spent Total Time Spent with Patient: Total time spent is greater than 50% in coordination of care (as documented) at patient's floor/unit and/or counseling patient: Coding Level of Care Code 67897 INT INP/OBS CARE 3/75MIN Diagnoses Elevated troponin R77.8 CAD (coronary artery disease) I25.10 Associated angina: without angina Coronary Disease-Associated Artery/Lesion type: [place] artery [place] vs. transplanted heart: [place] heart Cardiomyopathy I42.9 Acute dyspnea R06.00 Hypercholesterolemia E78.00 PAT (paroxysmal atrial tachycardia) I47.1 (2) CAD (coronary artery disease) Associated angina: without angina Coronary Disease-Associated Artery/Lesion type: [place] artery [place] vs. transplanted heart: [place] heart Qualified Code(s): I25.10 - Atherosclerotic heart disease of [place] coronary artery without angina pectoris
[2023-02-02] MEDS ORDERED: carvediloL 3.125 MG TAB PO SCH (13:35)
[2023-02-02] MEDS: HEPARIN SODIUM/DEXTROSE 25,000 UNITS/500 ML BAG IV SCH (14:37)
[2023-02-02] MEDS ORDERED: carvediloL 3.125 MG TAB PO ONE (16:15)
[2023-02-02] MEDS ORDERED: 0.2 MICRON FILTER SET 1 EACH IV STA (17:01)
[2023-02-02] MEDS ORDERED: AMIODARONE / D5W 150 MG/100 ML BAG IV STA ×2 (17:01→18:30)
[2023-02-02] MEDS ORDERED: AMIODARONE IV BOLUS & DRIP IV STA (17:01)
[2023-02-02] MEDS ORDERED: STAT IV Infusion **Titration per Protocol STA ×3 (17:01→18:01)
[2023-02-02] MEDS ORDERED: AMIODARONE / D5W 360 MG/200 ML BAG IV ONE (17:11)
[2023-02-02] MEDS: NOREPINEPHRINE/D5W 4 MG/250 ML PLCT IV SCH (17:54)
[2023-02-02] MEDS ORDERED: NOREPINEPHRINE/D5W 4 MG/250 ML PLCT IV SCH (18:01)
--- NOTE | 2023-02-02 18:11 | XRay Report ---
XR chest 1V portable CLINICAL HISTORY: dypnea TECHNIQUE: Single frontal radiograph of the chest was obtained. Comparison: Comparison is made to chest radiograph 02/01/2023 FINDINGS: Median sternotomy wires are unchanged. Cardiomegaly is noted. The lungs are clear. No evidence of ple ural effusion or pneumothorax. IMPRESSION: No acute abnormalities and in particular no radiographic evidence of pneumonia. ACT 112: Negative or not required by law. Electronically signed by: Eitan Serra M.D. 02/02/2023 6:10 PM
[2023-02-02 18:17] LABS: Basophils # (auto) 0.07 K/uL (0-0.2); Basophils % (auto) 0.5 %; Eosinophils # (auto) 0.21 K/uL (0-0.50); Eosinophils % (auto) 1.5 %; Hematocrit (blood only) 39.7 % (42.0-52.0); Immature Granulocytes # (auto) 0.08 K/uL (0.01-0.20); Immature Granulocytes % (auto) 0.6 %; Lymphocytes # (auto) 3.38 K/uL (1.2-3.4); Lymphocytes % (auto) 24.8 %; Mean Corpuscular Hemoglobin 31.6 pg (25.0-34.0); Mean Corpuscular Hgb Conc 32.7 g/dL (32.0-36.0); Mean Corpuscular Volume 96.4 fL (80.0-100.0); Mean Platelet Volume 12.1 fL (9.4-12.4); Monocytes # (auto) 0.82 K/uL (0.11-0.59); Neutrophils # (auto) 9.09 K/uL (1.40-6.50); Neutrophils % (auto) 66.6 %; Platelet Count 242 K/uL (130-400); RDW Standard Deviation 46.2 fL (36.4-46.3); Red Blood Count 4.12 M/uL (4.70-6.10); White Blood Count 13.65 K/ul (4.8-10.8)
[2023-02-02 18:27] LABS: Albumin Globulin Ratio 1.1 (0.9-2); Albumin Level 3.3 gm/dl (3.4-5.0); BUN Creatinine Ratio 15.6 (10-20); Bilirubin,Total 0.9 mg/dl (0.2-1.0); Calcium 8.3 mg/dl (8.6-10.3); Creatinine Clr Calc Pharmacy 43.7 ml/min; Est GFR (African American) 57.9 ml/min; Globulin 3.1 gm/dl (2.5-4.0); Potassium 4.1 mmol/L (3.5-5.1); Total Protein 6.4 gm/dl (6.0-8.3)
[2023-02-02] MEDS ORDERED: 0.2 MICRON FILTER SET 1 EACH IV ONE (18:30)
--- NOTE | 2023-02-02 18:46 | Communication Note ---
Date of Service: February 02, 2023 Discussion had with patient and about code status. Patient has a living will, and would want to try cardioversion if there is a chance it puts his heart back into normal rhythm and gives chance for quality of life and continued evaluation. However, if his heart were to stop, he would not want chest compressions/defibrillation/cardioversion to attempt to prolong his life.
[2023-02-02] MEDS: MAGNESIUM SULFATE / D5W 1 GM/100 ML BAG IV SCH ×2 (18:48→20:19)
--- NOTE | 2023-02-02 18:54 | Critical Care Progress Note ---
Date of Service February 02, 2023 Assessment & Plan (1) PAT (paroxysmal atrial tachycardia): (2) HFrEF (heart failure with reduced ejection fraction): (3) Cardiomyopathy: (4) Elevated troponin: (5) Acute dyspnea: (6) Diabetes mellitus type II, uncontrolled: (7) Obstructive sleep apnea: (8) CAD (coronary artery disease): Plan Reason Critically Ill: 87 YOM with History of CAD and newly identified depressed EF with RWMA however without ST elevations or depressions on ECG. New onset afib (NOAF) vs. atrial tachycardia- with symptomatic RVR. Neuro - No acute needs CAM ICU: NEGATIVE - Post sedation awake and conversant following commands and moving all extremities Cardiac - NOAF with RVR, CAD, NSTEMI, HTN, HLD, HFrEF - Patient with likely NSTEMI with resulting depression in EF and with RWMA with plan to cath later in the week. - Patient developed NOAF this evening with hemodynamic compromise with SBP to 70s/40s transitioned to ICU- DC synchronized cardioversion x1 at 150 flores - ECG post cardioversion without STEMI or ST depression - Continue with amiodarone - Continue with Heparin - Hold antihypertensives and BB while on vasopressors - Magnesium 2GM IV continue to keep MAG ~2 and K ~4.0 - Check TSH Respiratory - No acute needs - reports not wearing BiPAP/CPAP at home - On BIPAP for pulmonary support post cardioversion as well as positive pressure with depressed EF - wean off as able GI - No caute needs - NPO for tonight- carb consistent diet in am RENAL/LYTES - CKD III - chronic no acute needs - minimize nephrotoxic medications - No acute needs ENDO - DMII - ICU hyperglycemic protocol - TSH with reflex T4 pending HEME - Hx of myoclonal Bcell lymphocytosis - no acute needs ID - No acute needs - dyspnea most likely cardiac related- no consolidation on CXR, afebrile, follow leukocytosis and fever curve LINES/IV ACCESS - Nazario ESPINOey Continue use of these lines DVT PROPHYLAXIS - SCDs, Heparin infusion DISPO- ICU while on vasopressor agents I have personally spent 50 minutes of critical care time in the direct management of this patient. This is a life/limb threatening event. This includes time spent evaluating patient, direct bedside care, chart review, placing orders, interpretation of diagnostic studies, discussion with consultants, patient, and family members, as well as other required patient management activities. This time is exclusive of all separately billable procedures, and teaching time and separate from and in addition to any other critical care service time. Thank you for allowing us to participate in the care of this patient. Please refer to my attending physician's documentation for any further recommendations. Admission and Anticipated Discharge Date Admission Date: February 01, 2023 Subjective 87 YOM with medical history of: CAD, HTN, DM, HLD, previous CABG in 2001. Tawnya nted to EMD on 02/01/23 and was subsequently admitted with elevated HScTNI and dyspnea and sinus congestion. He was evaluated by Cardiology today 02/02/23 with completion of ECHO that revealed depressed EF to 25-30% with wall motion abnormalities but without ventricular thrombus noted. He was initiated on Heparin on admission. Today he was started on low dose carvedilol. This evening patient had new onset AFIB with RVR vs atrial tachyardia with pac's. He was noted to by hypotensive with SBP in the 70s and requiring vasopressor support. Patient was initiated on Amiodarone infusion with 150mg IV bolus without effect, he had mildly increasing vasopressor needs, noted dyspnea which he thinks is worse than when he came in and chest tightness in the center of his chest. For this reason patient was urgently/emergently cardioverted- see separate procedure note. Patient to remain in ICU while hemodyanmic support needed and monitoring of symptoms/rythms. He is DNR/DNI and this was confirmed with the patient. CODE: DNR/DNI CONSULTS: CARDIOLOGY Review of Systems Review of Systems: REVIEW OF SYSTEMS: Constitutional: No fever, sweats or chills Eyes: No diplopia, no worsening or blurred vision ENT: normal hearing, no trouble swallowing Respiratory: (+) cough, sputum, dyspnea at rest or on exertion Cardiovascular: (+) chest pain, tightness or palpitations Abdomen: No pain, nausea, vomiting, diarrhea or constipation Musculoskeletal: (+) chronic weakness and difficulty ambulating, Neurologic: No weakness, numbness/tingling, or balance problems Psychiatric: No anxiety or depression Skin: No rash or itch Physical Exam 2 Physical Exam: PHYSICAL EXAM: General: awake, alert, no apparent distress Head: Normocephalic, atraumatic ENT: PERRLA, EOMI, no pharyngeal exudate, mucous membranes moist Neuro: AAO x 3, speech clear and appropriate, strength intact bilaterally 5/5, sensation intact and equal all extremities and dermatomes, no pronator drift Chest: equal rise and fall of the chest, no accessory muscle use, no heaves or thirlls, Clear to auscultation, on room air, Cardiac: irregular rate and rhythm, telemetry reviewed- narrow complex irregular , skin warm dry, cap refill >3 seconds, peripheral pusles +2 no JVD, no murmur, trace edema to lower extremities GI: NABS x 4 quadrants, soft, nontender to palpation, no rebound, guarding or tenderness : [place] to gravity voiding, no pain, no CVA tenderness, Extremities: Normal inspection, no peripheral edema or erythema, calfs nontender to palpation Psych: Normal mood and affect Skin: no rash or erythema Results & Data Results & Data Vital Signs (Past 12 Hours) Vital Signs Temp Pulse Resp BP Pulse Ox O2 Del Method 02/02/23 17:30 130 H 30 H 79/54 L 92 Room Air 02/02/23 17:18 136 H 28 H 79/57 L 97 Room Air 02/02/23 15:37 37 C 82 20 94/63 L 96 Room Air 02/02/23 11:54 36.8 C 90 18 119/77 95 Room Air 02/02/23 08:00 Room Air 02/02/23 07:27 36.8 C 128 H 20 114/80 96 Room Air Laboratory Results Abnormal lab results 02/01/23 02/02/23 02/02/23 Range/Units 22:41 03:46 03:46 WBC 15.65 H (4.8-10.8) K/ul RBC 4.04 L (4.70-6.10) M/uL Hgb 12.8 L (14.0-18.0) g/dl Hct 38.9 L (42.0-52.0) % Neut # (Auto) 9.71 H (1.40-6.50) K/uL Lymph # (Auto) 4.51 H (1.2-3.4) K/uL [place] # (Auto) 0.98 H (0.11-0.59) K/uL APTT (21.0-31.0) Seconds Sodium (136-145) mmol/L Glucose 176 H (70-99(Fasting)) mg/dl POC Glucose (70-99) mg/dl Calcium 8.4 L (8.6-10.3) mg/dl Troponin I High Sens 8165.9 H* 7970.2 H* (0-20) pg/ml B-Natriuretic Peptide (0-100) pg/ml Albumin 3.3 L (3.4-5.0) gm/dl 02/02/23 02/02/23 02/02/23 Range/Units 03:46 07:26 10:26 WBC (4.8-10.8) K/ul RBC (4.70-6.10) M/uL Hgb (14.0-18.0) g/dl Hct (42.0-52.0) % Neut # (Auto) (1.40-6.50) K/uL Lymph # (Auto) (1.2-3.4) K/uL [place] # (Auto) (0.11-0.59) K/uL APTT 53.4 H* (21.0-31.0) Seconds Sodium (136-145) mmol/L Glucose (70-99(Fasting)) mg/dl POC Glucose 178 H (70-99) mg/dl Calcium (8.6-10.3) mg/dl Troponin I High Sens 5872.7 H* D (0-20) pg/ml B-Natriuretic Peptide (0-100) pg/ml Albumin (3.4-5.0) gm/dl 02/02/23 02/02/23 02/02/23 Range/Units 11:15 15:58 17:58 WBC (4.8-10.8) K/ul RBC (4.70-6.10) M/uL Hgb (14.0-18.0) g/dl Hct (42.0-52.0) % Neut # (Auto) (1.40-6.50) K/uL Lymph # (Auto) (1.2-3.4) K/uL [place] # (Auto) (0.11-0.59) K/uL APTT (21.0-31.0) Seconds Sodium (136-145) mmol/L Glucose (70-99(Fasting)) mg/dl POC Glucose 177 H 248 H (70-99) mg/dl Calcium (8.6-10.3) mg/dl Troponin I High Sens (0-20) pg/ml B-Natriuretic Peptide 1394 H (0-100) pg/ml Albumin (3.4-5.0) gm/dl 02/02/23 02/02/23 02/02/23 Range/Units 17:58 17:58 17:58 WBC 13.65 H (4.8-10.8) K/ul RBC 4.12 L (4.70-6.10) M/uL Hgb 13.0 L (14.0-18.0) g/dl Hct 39.7 L (42.0-52.0) % Neut # (Auto) 9.09 H (1.40-6.50) K/uL Lymph # (Auto) (1.2-3.4) K/uL [place] # (Auto) 0.82 H (0.11-0.59) K/uL APTT (21.0-31.0) Seconds Sodium 133 L (136-145) mmol/L Glucose 246 H (70-99(Fasting)) mg/dl POC Glucose (70-99) mg/dl Calcium 8.3 L (8.6-10.3) mg/dl Troponin I High Sens 4842.2 H* (0-20) pg/ml B-Natriuretic Peptide (0-100) pg/ml Albumin 3.3 L (3.4-5.0) gm/dl 02/02/23 Range/Units 20:27 WBC (4.8-10.8) K/ul RBC (4.70-6.10) M/uL Hgb (14.0-18.0) g/dl Hct (42.0-52.0) % Neut # (Auto) (1.40-6.50) K/uL Lymph # (Auto) (1.2-3.4) K/uL [place] # (Auto) (0.11-0.59) K/uL APTT (21.0-31.0) Seconds Sodium (136-145) mmol/L Glucose (70-99(Fasting)) mg/dl POC Glucose 272 H (70-99) mg/dl Calcium (8.6-10.3) mg/dl Troponin I High Sens (0-20) pg/ml B-Natriuretic Peptide (0-100) pg/ml Albumin (3.4-5.0) gm/dl Diagnostic Findings Chest X-Ray 02/01/23 12:50 XR chest 1V portable CLINICAL HISTORY: Shortness of breath. COMPARISON STUDY: Chest radiograph June 17, [address] July 19, 2020. FINDINGS: Median sternotomy wires and mediastinal surgical clip are noted. Cardiomegaly is unchanged. There is no evidence for pulmonary edema. No pneumothorax or pleural effusion. Elevation of the right hemidiaphragm is unchanged. No definite consolidation. There is right infrahilar opacity. IMPRESSION: 1. Equivocal right infrahilar opacity. This is likely artifactual however a focus of pneumonia could appear similar. Radiographic follow-up is recommended. 2. Cardiomegaly. No evidence for pulmonary edema. ACT 112: Negative or not required by law. Electronically signed by: Benton Mcgrath M.D. 02/01/2023 1:44 PM Chest X-Ray 02/02/23 17:34 XR chest 1V portable CLINICAL HISTORY: dypnea TECHNIQUE: Single frontal radiograph of the chest was obtained. Comparison: Comparison is made to chest radiograph 02/01/2023 FINDINGS: Median sternotomy wires are unchanged. Cardiomegaly is noted. The lungs are clear. No evidence of pleural effusion or pneumothorax. IMPRESSION: No acute abnormalities and in particular no radiographic evidence of pneumonia. ACT 112: Negative or not required by law. Electronically signed by: Eitan Serra M.D. 02/02/2023 6:10 PM Medications Administered Aspirin (Aspirin 81 Mg Ectab) 81 mg PO DAILY [facility] Stop: 03/04/23 08:59 Last Admin: 02/02/23 07:41 Dose: 81 mg Documented By: DMB Flumazenil (Flumazenil 0.1 Mg/1 Ml 10 Ml Vial) 0.2 mg IV UD PRN PRN Reason: sedation reversal Stop: 03/04/23 19:12 Last Admin: 02/02/23 19:45 Dose: 0.8 mg Documented By: MICHAEL Heparin Sodium/Dextrose (Heparin Sodium/Dextrose) 25,000 units in 500 mls @ 27 mls/hr IV .[id number] [facility]; Protocol Stop: 03/03/23 20:44 Last Titration: 02/02/23 18:59 Dose: 1,350 units/hr, 27 mls/hr Documented By: ES Co-signed By: TMG Admin: 02/02/23 14:37 Dose: 1,350 units/hr, 27 mls/hr Documented By: DMB Co-signed By: CELI Titration: 02/02/23 14:37 Dose: 1,350 units/hr, 27 mls/hr Documented By: DMB Co-signed By: CELI Titration: 02/02/23 04:00 Dose: 1,350 units/hr, 27 mls/hr Documented By: ARR Co-signed By: RUDDY Admin: 02/01/23 21:29 Dose: 1,350 units/hr, 27 mls/hr Documented By: ARR Co-signed By: RUDDY Amiodarone HCl/Dextrose (Nexterone / D5w) 360 mg in 200 mls @ 33.333 mls/hr IV ONE ONE Stop: 02/02/23 23:10 Last Infusion: 02/02/23 18:59 Dose: 1 mg/min, 33.3 mls/hr Documented By: ES Co-signed By: TMG Admin: 02/02/23 17:17 Dose: 1 mg/min, 33.3 mls/hr Documented By: PAT Co-signed By: OLVIN Norepinephrine Bitartrate (Levophed/D5w) 4 mg in 250 mls @ 42.435 mls/hr IV .Q5H54M [facility]; Protocol Stop: 03/04/23 17:44 Last Titration: 02/02/23 19:44 Dose: 0.12 mcg/kg/min, 42.4 mls/hr Documented By: Titration: 02/02/23 19:06 Dose: 0.07 mcg/kg/min, 24.8 mls/hr Documented By: ES Co-signed By: TMG Titration: 02/02/23 18:59 Dose: 0.05 mcg/kg/min, 17.7 mls/hr Documented By: ES Co-signed By: TMG Admin: 02/02/23 17:54 Dose: 0.05 mcg/kg/min, 17.7 mls/hr Documented By: ES Co-signed By: KGY Magnesium Sulfate/Dextrose (Magnesium Sulfate / D5w) 1 gm in 100 mls @ 50 mls/hr IV Q2H [facility] Stop: 02/02/23 22:14 Last Admin: 02/02/23 20:19 Dose: 50 mls/hr Documented By: Infusion: 02/02/23 20:19 Dose: 50 mls/hr Documented By: Infusion: 02/02/23 18:59 Dose: 50 mls/hr Documented By: Admin: 02/02/23 18:48 Dose: 50 mls/hr Documented By: PAOLA Insulin Aspart (Insulin Aspart Per Unit Charge) 0 units SC ACHS [facility] Stop: 03/03/23 18:04 Last Admin: 02/02/23 20:37 Dose: 3 units Documented By: STEFAN Co-signed By: NOMI Admin: 02/02/23 17:26 Dose: 3 units Documented By: OLVIN Co-signed By: PAT Admin: 02/02/23 11:56 Dose: 1 units Documented By: OLVIN Co-signed By: PAT Admin: 02/02/23 07:44 Dose: 1 units Documented By: OLVIN Co-signed By: PAT Admin: 02/01/23 21:30 Dose: 2 units Documented By: FARAZ Co-signed By: RUDDY Admin: 02/01/23 18:36 Dose: Not Given Documented By: DLF Insulin Glargine (Lantus Per Unit Charge) 5 units SQ BID [facility] Stop: 03/03/23 20:59 Last Admin: 02/02/23 20:37 Dose: 5 units Documented By: STEFAN Co-signed By: NOMI Admin: 02/02/23 07:47 Dose: Not Given Documented By: Admin: 02/01/23 21:30 Dose: 5 units Documented By: FARAZ Co-signed By: RUDDY Latanoprost (Latanoprost 0.005% Op Soln 2.5 Ml Btl) 1 drops OP HS [facility] Stop: 03/03/23 20:59 Last Admin: 02/02/23 20:38 Dose: 1 drops Documented By: Admin: 02/01/23 21:26 Dose: 1 drops Documented By: FARAZ Midazolam HCl (Midazolam Hcl 1 Mg/Ml 2ml Vial) 1 mg IV UD PRN PRN Reason: Pain Stop: 03/04/23 18:55 Last Admin: 02/02/23 19:35 Dose: 4 mg Documented By: MICHAEL Pantoprazole Sodium (Pantoprazole 40 Mg Tab) 40 mg PO DAILY [facility] Stop: 03/04/23 08:59 Last Admin: 02/02/23 07:41 Dose: 40 mg Documented By: OLVIN Polyethylene Glycol (Polyethylene (Miralax) 17 Gm Pack) 17 gm PO DAILY [facility] Stop: 03/04/23 08:59 Last Admin: 02/02/23 07:41 Dose: Not Given Documented By: OLVIN Discontinued Medications Aspirin (Aspirin Chew 324 Mg) 324 mg PO NOW STA Stop: 02/01/23 14:28 Last Admin: 02/01/23 14:39 Dose: 324 mg Documented By: QGV Carvedilol (Carvedilol 3.125 Mg Tab) 3.125 mg PO BIDM [facility] Stop: 03/04/23 13:34 Last Admin: 02/02/23 14:37 Dose: 3.125 mg Documented By: OLVIN Carvedilol (Carvedilol 3.125 Mg Tab) 3.125 mg PO NOW ONE Stop: 02/02/23 16:16 Last Admin: 02/02/23 17:20 Dose: Not Given Documented By: OLVIN Etomidate (Etomidate 2 Mg/Ml 20 Ml Vial) 10 mg IV NOW ONE Stop: 02/02/23 19:03 Last Admin: 02/02/23 19:35 Dose: 10 mg Documented By: MICHAEL Heparin Sodium (Porcine) 6,000 (units/ Syringe) 6 mls @ 10 mls/min IV ONE ONE Stop: 02/01/23 20:46 Last Admin: 02/01/23 21:29 Dose: 10 mls/min Documented By: ARR Co-signed By: RUDDY Amiodarone HCl/Dextrose (Nexterone / D5w) 150 mg in 100 mls @ 600 mls/hr IV NOW STA Stop: 02/02/23 17:10 Last Infusion: 02/02/23 18:05 Dose: 0 mls/hr Documented By: PAOLA Co-signed By: EUSEBIO Admin: 02/02/23 17:16 Dose: 600 mls/hr Documented By: PAT Co-signed By: OLVIN Norepinephrine Bitartrate (Levophed/D5w) 4 mg in 250 mls @ 17.681 mls/hr IV .Q14H9M [facility]; Protocol Stop: 03/04/23 18:00 Last Admin: 02/02/23 18:04 Dose: Not Given Documented By: ES Amiodarone HCl/Dextrose (Nexterone / D5w) 150 mg in 100 mls @ 600 mls/hr IV NOW STA Stop: 02/02/23 18:39 Last Infusion: 02/02/23 18:59 Dose: 0 mls/hr Documented By: PAOLA Co-signed By: STEFAN Admin: 02/02/23 18:48 Dose: 600 mls/hr Documented By: ES Co-signed By: JEANNE Losartan Potassium (Losartan Potassium 25 Mg Tab) 25 mg PO DAILY [facility] Stop: 03/04/23 08:59 Last Admin: 02/02/23 07:41 Dose: 25 mg Documented By: DMB Metoprolol Tartrate (Metoprolol Tartrate 1 Mg/Ml Vial) 5 mg IV NOW STA Stop: 02/01/23 14:30 Last Admin: 02/01/23 14:41 Dose: 5 mg Documented By: QGV ECG Additional Comments: Wide QRS tachycardia with Premature ventricular complexes or Fusion complexes Right bundle branch block Left posterior fascicular block Bifascicular block T wave abnormality, consider inferolateral ischemia Abnormal ECG When compared with ECG of 02-FEB-2023 01:51, (unconfirmed) Previous ECG has undetermined rhythm, needs review Coding Level of Care Code 47450 CRITICAL CARE 1ST 30-74M Diagnoses PAT (paroxysmal atrial tachycardia) I47.1 HFrEF (heart failure with reduced ejection fraction) I50.20 Cardiomyopathy I42.9 Elevated troponin R77.8 Acute dyspnea R06.00 Diabetes mellitus type II, uncontrolled E11.65 Glycemic state: with hyperglycemia Obstructive sleep apnea G47.33 CAD (coronary artery disease) I25.10 Associated angina: without angina Coronary Disease-Associated Artery/Lesion type: [place] artery [place] vs. transplanted heart: [place] heart Time Spent (min) 50 (6) Diabetes mellitus type II, uncontrolled Glycemic state: with hyperglycemia Qualified Code(s): E11.65 - Type 2 diabetes mellitus with hyperglycemia (8) CAD (coronary artery disease) Associated angina: without angina Coronary Disease-Associated Artery/Lesion type: [place] artery [place] vs. transplanted heart: [place] heart Qualified Code(s): I25.10 - Atherosclerotic heart disease of [place] coronary artery without angina pectoris
[2023-02-02] MEDS ORDERED: MIDAZOLAM HCL 1 MG/ML 2ML VIAL IV PRN (18:56)
[2023-02-02] MEDS ORDERED: ETOMIDATE 2 MG/ML 20 ML VIAL IV ONE (19:02)
[2023-02-02] MEDS ORDERED: FLUMAZENIL 0.1 MG/1 ML 10 ML VIAL IV PRN (19:13)
--- NOTE | 2023-02-02 19:59 | Procedure Note ---
Procedure Note Date of Service February 02, 2023 Note Performed by: Brandi Causey Consent: Procedure was performed emergently and verbal consent was acquired from patient and . Procedure was emergent due to hypotension, dyspnea, symptomatic tachycardia, chest pain Risks and benefits: risks, benefits and alternatives were discussed Patient understanding: states understanding of the procedure being performed Patient consent: understanding of the procedure matches consent given Patient identity confirmed: verbally with patient and arm band Time out: Immediately prior to procedure a "time out" was called to verify the correct patient, procedure, equipment, product support sales representative and site/side marked as required. Medication IV: Patient first received etomidate 10mg IV x1. Shortly after, patient received Versed total of 4 milligrams IV, dosed in 2mg doses, with adequate conscious sedation. After cardioversion performed (see cardioversion procedure note by Da Eller), patient received flumazenil for a total dose of 0.8mg IV, dosed in 0.2mg doses as appropriate. Patient awoke to voice and was answering questions and responding appropriately by end of procedure. Complications: none Time: Total intra-service time with patient was 30 minutes. Coding CPT Codes Sedation/Anesthesia - Sedation/Anesthesia: 31950 Mod Sedation by the same physician;Init15 Min Child Age 5 & Up ([id number]) [facility] [place] Codes (Charges) Indication for Procedure Indication for procedure: Conscious sedation for emergent synchronized cardioversion Sedation/Anesthesia Procedure 1: Sedation/Anesthesia: 71757 Mod Sedation by the same physician;Init15 Min Child Age 5 & Up Total Sedation Time (minutes): 20
--- NOTE | 2023-02-02 20:22 | Procedure Note ---
Procedure Note Date of Service February 02, 2023- 1919 Note Urgent/Emergent cardioversion CPT CODE 00133 Reason for procedure: Symptomatic new onset atrial fibrillation with RVR Procedure: Cardrioversion Proceduralist: Da PETIT ([facility]) Sedation/monitor: Brandi Carroll MD Sedation Nurse: Jaki Araya RN Monitor: Anita Jordan RN Crash Shabbir- Tim Rodriguez RN TIME out and roles identified and performed at 1920 with all personnel involved. Patient presented to the ICU for afib with RVR with hypotension requiring vasopressor support. He was initially treated with amiodarone 150mg IV bolus and drip with no effect. He was re-bloused with 150mg IV amiodarone as well as Magnesium 2GM IV. Patient continued with rapid HR in the 140s-150s, patient began to experience more dyspnea and have more chest tightness. Decision was made to cardiovert patient as urgent/emergent for worsening symptoms and hemodynamics. Patient and family was verbally consented by myself for the cardioversion and Dr. Carroll for sedation. Risks and benefits explained including risk of . Patient verbalized understanding and wished to proceed. Sedation plan reviewed with Dr. Carroll, monitors in place, rescue equipment prepped, functioning and in place. Monitor personnel present and in place. Zoll defibrillator was in room, pads connected and placed on patient anterior and posteriorly, the machine was turned on, synchronized button was pre ssed noting appropriate sensing turner on the QRS complexes. Joules selected at 150. Following administration of sedation under Dr. Carroll direction, expected effects of sedation were witnessed, the machine was charged- again verification of synchronization, markings of the QRS complex were witnessed and verbalized, personnel was clear, I was clear, oxygen was clear- DC cardioversion delivered at 150J at 1936 with return to NSR. Patient was assisted with BVM supported breaths. NPA was placed and reversal agents were administered per Dr. Carroll. Successful cardioversion x1 attempt Appropriate recovery time and support Complications: NONE immediate Procedural time 15minutes to include post procedural monitoring Coding
[2023-02-02] MEDS: LATANOPROST 0.005% OP SOLN 2.5 ML BTL OP SCH (20:38)
[2023-02-02] MEDS: AMIODARONE / D5W 360 MG/200 ML BAG IV SCH (22:35)
[2023-02-03 05:48] LABS: BUN Creatinine Ratio 16.4 (10-20); Creatinine Clr Calc Pharmacy 43.7 ml/min; Est GFR (African American) 57.9 ml/min; Magnesium 2.4 mg/dl (1.7-2.4); Potassium 3.6 mmol/L (3.5-5.1)
[2023-02-03] MEDS ORDERED: STAT IV STA (06:02)
[2023-02-03] MEDS ORDERED: CALCIUM GLUCONATE 10% 2,000 MG in DEXTROSE 5% 50 ML IV ONE (06:02)
[2023-02-03 06:07] LABS: Basophils % (auto) 0.7 %; Eosinophils # (auto) 0.33 K/uL (0-0.50); Eosinophils % (auto) 2.3 %; Hematocrit (blood only) 36.6 % (42.0-52.0); Immature Granulocytes # (auto) 0.09 K/uL (0.01-0.20); Immature Granulocytes % (auto) 0.6 %; Lymphocytes # (auto) 4.37 K/uL (1.2-3.4); Lymphocytes % (auto) 30.3 %; Mean Corpuscular Hemoglobin 31.7 pg (25.0-34.0); Mean Corpuscular Hgb Conc 32.8 g/dL (32.0-36.0); Mean Corpuscular Volume 96.6 fL (80.0-100.0); Mean Platelet Volume 12.3 fL (9.4-12.4); Monocytes # (auto) 0.85 K/uL (0.11-0.59); Monocytes % (auto) 5.9 %; Neutrophils # (auto) 8.66 K/uL (1.40-6.50); Neutrophils % (auto) 60.2 %; Platelet Count 224 K/uL (130-400); RDW Standard Deviation 46.3 fL (36.4-46.3); Red Blood Count 3.79 M/uL (4.70-6.10)
[2023-02-03 06:16] LABS: Partial Thromboplastin Ratio > 4.9
[2023-02-03 06:30] LABS: Partial Thromboplastin Time > 139.0 Seconds (21.0-31.0)
[2023-02-03] MEDS: POTASSIUM CHLORIDE / WTR 10 MEQ/100 ML PLCT IV SCH ×2 (06:40→08:13)
[2023-02-03] MEDS: ICU ELECTROLYTE REPLACEMENT PROTOCOL SCH ×2 (06:40→18:15)
--- NOTE | 2023-02-03 07:03 | Hospitalist Progress Note ---
Date of Service February 03, 2023 Assessment & Plan (1) NSTEMI (non-ST elevated myocardial infarction): Plan: - Follows with cardiology for multivessel CAD s/p CABG x3; bypass was done at [facility] - Intolerant of statins, Zetia due to confusion and severe GI issues. Last LDL 118, HDL 37 - Trop peak 8165 and downtrending, likely NSTEMI - Echo with evidence of severe wall motion abnormalities in the inferior wall, inferolateral wall, anterolateral wall, base and mid anterior wall - Continue heparin gtt, aspirin - Plan for cardiac catheterization tomorrow, case discussed with Dr. Irwin and Dr. Win (2) PAT (paroxysmal atrial tachycardia): Plan: - Now in sinus rhythm on EKG but with periods of nonsustained SVT vs. PAT w/ aberrancy - S/p DC cardioversion x1 @ 150J overnight due to sustained HR 150s and unstable, with successful return to sinus rhythm and post-procedure EKG without ST elevations/depressions - Continue amiodarone (3) HFrEF (heart failure with reduced ejection fraction): Plan: - Echocardiogram 02/01/23 with mildly dilated LV with severely reduced EF 25-30%, without prior study for comparison, however previously reported in EMR that patient had normal LV function - No evidence of CHF exacerbation - Catheterization on Saturday as above - Holding Entresto and Coreg while on pressure support - Can consider Jardiance in the future (4) Acute dyspnea: Plan: - No hypoxia, no evidence of fluid overload - Viral PCR negative, CXR with no acute findings - Mild leukocytosis, although this may be due to to recent steroid treatment. Procalcitonin not elevated - Dyspnea with exertion suspected secondary to CAD/cardiomyopathy, evaluation and management of such as above (5) Diabetes mellitus type II, uncontrolled: Plan: - Liberalized A1c goal due to age and comorbidities - History of neuropathy, multifactorial with spinal stenosis - Intolerant of metformin, SGLT2. 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 Patient declined hematology /oncology follow-up, and is following with routine CBC with differential - Additional imaging/biopsy/flow cytometry deferred unless patient was clinical progression. 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 Heart healthy, low sodium diet with NPO at midnight. May need PT/OT before discharge, no weight bearing (except normal walking) to left foot. Patient's alerted me that if patient needs rehab on discharge they do not want [facility] due to poor experience of /friend. Continued care per ICU provider, hospitalist will continue to follow along with care. Admission and Anticipated Discharge Date Admission Date: February 01, 2023 Subjective Patient was sedated and emergently cardioverted overnight, see my/Denys Eller's procedure notes. Overnight, he had a few nonsustained episodes of tachycardia into the 120s, most recently this morning at around 5am, but he spontaneously converted to sinus rhythm. He did get a little delirious last night, kept trying to pull out catheter, so it was removed. Late this AM with some hypotension, placed back on Levophed. Review of Systems Review of Systems: All systems reviewed & are unremarkable except as noted in Subjective Physical Exam Constitutional: WD/WN, vitals as above Respiratory: normal respiratory effort, lungs clear to auscultation Cardiovascular: RRR, no murmur, no edema Gastrointestinal (Abdomen): normal bowel sounds, soft, nontender, no hepatosplenomegaly Skin: no rashes, warm and dry Psychiatric: A+Ox3, euthymic affect Results & Data Results & Data Vital Signs (Past 12 Hours) Vital Signs Temp Pulse Resp BP Pulse Ox O2 Del Method O2 Flow Rate 02/03/23 06:25 120/84 02/03/23 06:25 70 19 98 02/03/23 06:20 91/58 L 02/03/23 06:20 63 13 97 02/03/23 06:15 63 19 96 02/03/23 06:15 81/54 L 02/03/23 06:10 82/51 L 02/03/23 06:10 62 19 96 02/03/23 06:08 65 19 95 02/03/23 06:08 78/50 L 02/03/23 06:07 64 18 96 02/03/23 06:07 79/50 L 02/03/23 06:05 78/50 L 02/03/23 06:05 66 18 96 02/03/23 06:00 63 19 95 02/03/23 06:00 78/53 L 02/03/23 05:55 64 18 96 02/03/23 05:55 84/53 L 02/03/23 05:50 95/59 L 02/03/23 05:50 73 20 95 02/03/23 05:46 72 19 94 02/03/23 05:46 91/56 L 02/03/23 05:45 66 32 H 95 02/03/23 05:45 89/60 L 02/03/23 05:40 93/60 L 02/03/23 05:40 67 14 95 02/03/23 05:35 104/67 02/03/23 05:35 68 9 L 97 02/03/23 05:30 77 13 94 02/03/23 05:30 103/71 02/03/23 05:25 104/63 02/03/23 05:25 72 25 H 95 02/03/23 05:20 109/71 02/03/23 05:20 77 19 95 02/03/23 05:15 77 17 95 02/03/23 05:15 100/68 02/03/23 05:10 87/62 L 02/03/23 05:10 123 H 24 97 02/03/23 05:00 104/69 02/03/23 05:03 Nasal Cannula 2 05/14/23 05:00 77 16 96 02/03/23 04:53 128 H 18 91 02/03/23 04:53 92/63 L 02/03/23 04:45 124 H 16 93 02/03/23 04:45 100/70 02/03/23 04:30 72 12 95 02/03/23 04:30 112/71 02/03/23 04:15 102 H 21 97 02/03/23 04:15 113/67 02/03/23 04:00 79 13 86 L 02/03/23 04:00 107/71 02/03/23 03:45 77 13 94 02/03/23 03:45 98/61 L 02/03/23 03:30 72 9 L 89 L 02/03/23 03:30 93/60 L 02/03/23 03:15 71 12 95 02/03/23 03:15 102/64 02/03/23 03:00 66 13 97 02/03/23 03:00 103/57 L 02/03/23 02:45 80 15 92 02/03/23 02:45 101/64 02/03/23 02:30 79 14 89 L 02/03/23 02:30 109/70 02/03/23 02:15 37.4 C 76 24 96 02/03/23 02:15 98/64 L 02/03/23 02:01 96/72 L 02/03/23 02:01 37.3 C 71 29 H 98 02/03/23 02:00 37.3 C 72 30 H 99 02/03/23 01:45 37.3 C 70 13 97 02/03/23 01:45 111/66 02/03/23 01:30 37.3 C 73 24 97 02/03/23 01:30 105/60 02/03/23 01:15 37.2 C 69 25 H 98 02/03/23 01:15 107/67 02/03/23 01:00 89/61 L 02/03/23 01:00 37.1 C 74 17 96 02/03/23 00:45 37.1 C 77 22 95 02/03/23 00:45 88/53 L 02/03/23 00:30 36.3 C L 74 23 96 02/03/23 00:30 100/62 02/03/23 00:15 37.3 C 78 16 97 02/03/23 00:15 94/57 L 02/03/23 00:00 37.2 C 81 24 94 02/03/23 00:00 80/40 L 02/02/23 23:45 37.2 C 79 15 96 02/02/23 23:45 82/55 L 02/03/23 00:13 70 02/02/23 23:30 37.0 C 80 17 92 02/02/23 23:30 103/62 02/02/23 23:25 37.1 C 73 17 95 02/02/23 23:20 37.0 C 71 21 96 02/02/23 23:16 128/69 02/02/23 23:16 37.1 C 83 21 95 02/02/23 23:15 37.1 C 77 22 96 02/02/23 23:10 37.1 C 73 32 H 97 02/02/23 23:05 37.1 C 70 26 H 97 02/02/23 23:00 37.1 C 74 20 96 02/02/23 23:00 102/86 02/02/23 22:55 37.1 C 74 23 96 02/02/23 22:50 37.1 C 89 21 95 02/02/23 22:45 37.1 C 77 13 94 02/02/23 22:45 124/81 02/02/23 22:40 37.1 C 71 14 93 02/02/23 22:35 37.1 C 74 26 H 90 02/02/23 22:30 37.1 C 71 24 98 02/02/23 22:30 113/71 02/02/23 22:25 37.1 C 73 26 H 97 02/02/23 22:20 37.1 C 72 27 H 97 02/02/23 22:15 37.1 C 74 15 95 02/02/23 22:15 120/76 02/02/23 22:10 37.1 C 73 13 96 02/02/23 22:10 120/81 02/02/23 22:05 37.0 C 75 22 92 02/02/23 22:05 113/75 02/02/23 22:00 36.9 C 77 14 93 02/02/23 22:00 117/78 02/02/23 21:55 36.9 C 76 23 92 02/02/23 21:55 118/79 02/02/23 21:50 37.0 C 76 25 H 97 02/02/23 21:50 124/78 02/02/23 21:45 37.0 C 74 25 H 95 02/02/23 21:45 122/78 02/02/23 21:40 37.0 C 75 26 H 98 02/02/23 21:40 126/93 02/02/23 21:35 37.0 C 73 18 91 02/02/23 21:35 124/81 02/02/23 21:30 37.1 C 77 19 97 02/02/23 21:30 111/76 02/02/23 21:25 36.6 C 75 23 98 02/02/23 21:25 116/72 02/02/23 21:20 37.2 C 74 24 97 02/02/23 21:20 115/70 02/02/23 21:15 37.3 C 75 23 97 02/02/23 21:15 126/84 02/02/23 21:10 37.3 C 78 24 96 02/02/23 21:10 119/86 02/02/23 21:05 37.3 C 77 23 99 02/02/23 21:05 123/78 02/02/23 21:00 37.3 C 76 22 100 02/02/23 21:00 123/97 02/02/23 20:55 37.3 C 76 16 100 02/02/23 20:55 132/87 02/02/23 20:50 37.3 C 76 20 99 02/02/23 20:50 133/83 02/02/23 20:45 37.4 C 76 23 99 02/02/23 20:45 127/86 02/02/23 20:40 37.3 C 77 22 98 02/02/23 20:40 117/88 02/02/23 20:36 130/77 02/02/23 20:36 37.3 C 79 22 100 02/02/23 20:35 37.2 C 76 24 100 02/02/23 20:30 37.5 C 76 22 99 02/02/23 20:25 37.5 C 75 21 100 02/02/23 20:25 129/87 02/02/23 20:20 37.5 C 73 19 99 02/02/23 20:20 114/80 02/02/23 20:15 37.5 C 73 18 100 02/02/23 20:15 111/76 02/02/23 22:08 Room Air 02/02/23 19:50 75 23 100 02/02/23 20:10 37.5 C 72 20 100 BiPAP 02/02/23 20:10 105/73 02/02/23 20:05 37.5 C 73 20 100 02/02/23 20:05 110/74 02/02/23 20:00 37.5 C 73 23 100 02/02/23 20:00 109/73 02/02/23 19:55 37.5 C 73 21 100 02/02/23 19:55 101/73 02/02/23 19:50 37.4 C 73 23 100 02/02/23 19:50 111/74 02/02/23 19:45 118/77 02/02/23 19:45 37.1 C 72 20 100 02/02/23 19:40 37.3 C 70 19 100 02/02/23 19:40 99/65 L 02/02/23 19:39 37.5 C 67 21 100 02/02/23 19:39 93/64 L 02/02/23 19:35 37.4 C 70 22 100 02/02/23 19:35 86/58 L 02/02/23 19:34 37.4 C 69 20 100 02/02/23 19:34 81/59 L 02/02/23 19:30 37.4 C 69 15 100 02/02/23 19:30 85/63 L 02/02/23 19:29 93/66 L 02/02/23 19:29 37.3 C 67 14 100 02/02/23 19:20 37.3 C 142 H 17 98 FiO2 02/03/23 06:25 02/03/23 06:25 02/03/23 06:20 02/03/23 06:20 02/03/23 06:15 02/03/23 06:15 02/03/23 06:10 02/03/23 06:10 02/03/23 06:08 02/03/23 06:08 02/03/23 06:07 02/03/23 06:07 02/03/23 06:05 02/03/23 06:05 02/03/23 06:00 02/03/23 06:00 02/03/23 05:55 02/03/23 05:55 02/03/23 05:50 02/03/23 05:50 02/03/23 05:46 02/03/23 05:46 02/03/23 05:45 02/03/23 05:45 02/03/23 05:40 02/03/23 05:40 02/03/23 05:35 02/03/23 05:35 02/03/23 05:30 02/03/23 05:30 02/03/23 05:25 02/03/23 05:25 02/03/23 05:20 02/03/23 05:20 02/03/23 05:15 02/03/23 05:15 02/03/23 05:10 02/03/23 05:10 02/03/23 05:00 02/03/23 05:03 02/03/23 05:00 02/03/23 04:53 02/03/23 04:53 02/03/23 04:45 02/03/23 04:45 02/03/23 04:30 02/03/23 04:30 02/03/23 04:15 02/03/23 04:15 02/03/23 04:00 02/03/23 04:00 02/03/23 03:45 02/03/23 03:45 02/03/23 03:30 02/03/23 03:30 02/03/23 03:15 02/03/23 03:15 02/03/23 03:00 02/03/23 03:00 02/03/23 02:45 02/03/23 02:45 02/03/23 02:30 02/03/23 02:30 02/03/23 02:15 02/03/23 02:15 02/03/23 02:01 02/03/23 02:01 02/03/23 02:00 02/03/23 01:45 02/03/23 01:45 02/03/23 01:30 02/03/23 01:30 02/03/23 01:15 02/03/23 01:15 02/03/23 01:00 02/03/23 01:00 02/03/23 00:45 02/03/23 00:45 02/03/23 00:30 02/03/23 00:30 02/03/23 00:15 02/03/23 00:15 02/03/23 00:00 02/03/23 00:00 02/02/23 23:45 02/02/23 23:45 02/03/23 00:13 02/02/23 23:30 02/02/23 23:30 02/02/23 23:25 02/02/23 23:20 02/02/23 23:16 02/02/23 23:16 02/02/23 23:15 02/02/23 23:10 02/02/23 23:05 02/02/23 23:00 02/02/23 23:00 02/02/23 22:55 02/02/23 22:50 02/02/23 22:45 02/02/23 22:45 02/02/23 22:40 02/02/23 22:35 02/02/23 22:30 02/02/23 22:30 02/02/23 22:25 02/02/23 22:20 02/02/23 22:15 02/02/23 22:15 02/02/23 22:10 02/02/23 22:10 02/02/23 22:05 02/02/23 22:05 02/02/23 22:00 02/02/23 22:00 02/02/23 21:55 02/02/23 21:55 02/02/23 21:50 02/02/23 21:50 02/02/23 21:45 02/02/23 21:45 02/02/23 21:40 02/02/23 21:40 02/02/23 21:35 02/02/23 21:35 02/02/23 21:30 02/02/23 21:30 02/02/23 21:25 02/02/23 21:25 02/02/23 21:20 02/02/23 21:20 02/02/23 21:15 02/02/23 21:15 02/02/23 21:10 02/02/23 21:10 02/02/23 21:05 02/02/23 21:05 02/02/23 21:00 02/02/23 21:00 02/02/23 20:55 02/02/23 20:55 02/02/23 20:50 02/02/23 20:50 02/02/23 20:45 02/02/23 20:45 02/02/23 20:40 02/02/23 20:40 02/02/23 20:36 02/02/23 20:36 02/02/23 20:35 02/02/23 20:30 02/02/23 20:25 02/02/23 20:25 02/02/23 20:20 02/02/23 20:20 02/02/23 20:15 02/02/23 20:15 02/02/23 22:08 02/02/23 19:50 30 02/02/23 20:10 02/02/23 20:10 02/02/23 20:05 02/02/23 20:05 02/02/23 20:00 02/02/23 20:00 02/02/23 19:55 02/02/23 19:55 02/02/23 19:50 02/02/23 19:50 02/02/23 19:45 02/02/23 19:45 02/02/23 19:40 02/02/23 19:40 02/02/23 19:39 02/02/23 19:39 02/02/23 19:35 02/02/23 19:35 02/02/23 19:34 02/02/23 19:34 02/02/23 19:30 02/02/23 19:30 02/02/23 19:29 02/02/23 19:29 02/02/23 19:20 PG Care Time/CCT Total # of Minutes Spent Total Time Spent with Patient: Total time spent is greater than 50% in coordination of care (as documented) at patient's floor/unit and/or counseling patient: Coding Level of Care Code 68394 SUB INP/OBS CARE 3/50MIN Diagnoses NSTEMI (non-ST elevated myocardial infarction) I21.4 PAT (paroxysmal atrial tachycardia) I47.1 HFrEF (heart failure with reduced ejection fraction) I50.20 Acute dyspnea R06.00 Diabetes mellitus type II, uncontrolled E11.65 Glycemic state: with hyperglycemia Dementia F03.90 Dementia behavioral disturbance: without behavioral disturbance Dementia type: unspecified type Gastroesophageal reflux disease K21.9 Esophagitis presence: esophagitis presence not specified Monoclonal B-cell lymphocytosis D72.820 Lumbar spinal stenosis M48.061 Neurogenic claudication status: unspecified Hypertension I10 Diarrhea R19.7 BPH with urinary obstruction N40.1; N13.8 (5) Diabetes mellitus type II, uncontrolled Glycemic state: with hyperglycemia Qualified Code(s): E11.65 - Type 2 diabetes mellitus with hyperglycemia (6) Dementia Dementia behavioral disturbance: without behavioral disturbance Dementia type: unspecified type Qualified Code(s): F03.90 - Unspecified dementia without behavioral disturbance (7) Gastroesophageal reflux disease Esophagitis presence: esophagitis presence not specified Qualified Code(s): K21.9 - Gastro-esophageal reflux disease without esophagitis (9) Lumbar spinal stenosis Neurogenic claudication status: unspecified Qualified Code(s): M48.061 - Spinal stenosis, lumbar region without neurogenic claudication
[2023-02-03] MEDS ORDERED: POTASSIUM CHLORIDE CRTAB 20 MEQ TABCR PO STA ×2 (07:23→07:50)
--- NOTE | 2023-02-03 08:03 | Cardiology Progress Note ---
Date of Service February 03, 2023 Assessment & Plan (1) Elevated troponin: (2) CAD (coronary artery disease): (3) Cardiomyopathy: (4) Acute dyspnea: (5) Hypercholesterolemia: (6) PAT (paroxysmal atrial tachycardia): Plan 1. Elevated troponin: His troponin is markedly elevated, however there is no evidence for ST segment elevation myocardial infarction. I would therefore not be inclined to take him emergently to laboratory in view of lack of ischemic symptoms and enzyme pattern not suggestive of acute myocardial infarction. There is evidence however that this may indicate progressive coronary artery disease, he does have left ventricular dysfunction which appears to be new but do not see recent studies to determine a timeframe. I doubt this is all new and probably has been present for at least some time. 2. Coronary disease: He has known coronary disease but historically has had normal left ventricular function but I do not think any recent evaluation. His left ventricular dysfunction wall motion abnormalities could be of some age, but do suggest that he has progression of coronary disease. This should be evaluated. We can consider cardiac catheterization (possibly Saturday) versus stress testing, with his known coronary disease I am not inclined to do stress testing and I would favor cardiac catheterization. He is agreeable to this. I am going to schedule this for tomorrow. 3. Cardiomyopathy: He has a significant cardiomyopathy but without recent studies I cannot determine when this might have occurred. Apparently it was not present historically. He is not on very many medications for it, I believe he is on low-dose losartan but not a beta-olinda. I would recommend treating his cardiomyopathy with guideline directed medical therapy which would include beta- blockade and I would favor Entresto and consideration of Jardiance. I am going to start low-dose carvedilol and low-dose Entresto and discontinue his losartan. It is conceivable although not likely that some of his left ventricular dysfunction is due to a persistent atrial tachycardia that he seems to have. 4. Dyspnea: Some of this could be heart failure symptoms, he is not in congestive heart failure on chest x-ray so most of this might be a viral illness not cardiac in nature. Dyspnea on exertion can also be an anginal equivalent. From the cardiac standpoint I would treat him for heart failure with medications as noted above and we will investigate ischemia as a cause as noted above. 5. Dyslipidemia: I understand he is statin intolerant which would increase his odds of having had progression of coronary artery disease. 6. PAT: He has some type of what I believe is an atrial arrhythmia on electrocardiography and telemetry, I do not see clear P waves but it is quite regular so I do not suspect atrial fibrillation, I do not believe it is atrial flutter. It seems to start with a premature atrial beat and may be some form of SVT such as AV tara reentry or bypass tract tachycardia rather than an atrial tachycardia. The wide-complex rhythms I suspect are aberrancy but ventricular tachycardia would be a possibility but seems less likely although with his cardiomyopathy perhaps we need to consider that. I would continue amiodarone for now, we might want to consider electrophysiologic study but I would proceed with a catheterization first. Admission and Anticipated Discharge Date Admission Date: February 01, 2023 Subjective Events of last or today afternoon and evening noted. He feels well today, he has no cardiovascular complaints such as lightheadedness, dizziness, palpitations or chest discomfort. Physical Exam Physical Exam: Constitutional: Alert, cooperative and in no distress. HEENT: Unremarkable Neck: No jugular venous distention, carotid pulses are normal and equal bilaterally without bruits. Pulmonary: Clear to auscultation bilaterally. Cardiac: Regular rhythm with frequent premature beats and no murmur, gallop or rub. Abdomen: Soft, nontender with normal bowel sounds. Extremities: No edema. Distal pulses intact. Neurologic: No focal findings. Gait was not tested. Skin: No rash, ecchymoses or petechiae. Results & Data Vital Signs (Past 12 Hours) Vital Signs Temp Pulse Resp BP Pulse Ox O2 Del Method O2 Flow Rate 02/03/23 06:25 120/84 02/03/23 06:25 70 19 98 02/03/23 06:20 91/58 L 02/03/23 06:20 63 13 97 02/03/23 06:15 63 19 96 02/03/23 06:15 81/54 L 02/03/23 06:10 82/51 L 02/03/23 06:10 62 19 96 02/03/23 06:08 65 19 95 02/03/23 06:08 78/50 L 02/03/23 06:07 64 18 96 02/03/23 06:07 79/50 L 02/03/23 06:05 78/50 L 02/03/23 06:05 66 18 96 02/03/23 06:00 63 19 95 02/03/23 06:00 78/53 L 02/03/23 05:55 64 18 96 02/03/23 05:55 84/53 L 02/03/23 05:50 95/59 L 02/03/23 05:50 73 20 95 02/03/23 05:46 72 19 94 02/03/23 05:46 91/56 L 02/03/23 05:45 66 32 H 95 02/03/23 05:45 89/60 L 02/03/23 05:40 93/60 L 02/03/23 05:40 67 14 95 02/03/23 05:35 104/67 02/03/23 05:35 68 9 L 97 02/03/23 05:30 77 13 94 02/03/23 05:30 103/71 02/03/23 05:25 104/63 02/03/23 05:25 72 25 H 95 02/03/23 05:20 109/71 02/03/23 05:20 77 19 95 02/03/23 05:15 77 17 95 02/03/23 05:15 100/68 02/03/23 05:10 87/62 L 02/03/23 05:10 123 H 24 97 02/03/23 05:00 104/69 02/03/23 05:03 Nasal Cannula 2 02/03/23 05:00 77 16 96 02/03/23 04:53 128 H 18 91 02/03/23 04:53 92/63 L 02/03/23 04:45 124 H 16 93 02/03/23 04:45 100/70 02/03/23 04:30 72 12 95 02/03/23 04:30 112/71 02/03/23 04:15 102 H 21 97 02/03/23 04:15 113/67 02/03/23 04:00 79 13 86 L 02/03/23 04:00 107/71 02/03/23 03:45 77 13 94 02/03/23 03:45 98/61 L 02/03/23 03:30 72 9 L 89 L 02/03/23 03:30 93/60 L 02/03/23 03:15 71 12 95 02/03/23 03:15 102/64 05 03:00 66 13 97 05/14/23 03:00 103/57 L 02/03/23 02:45 80 15 92 02/03/23 02:45 101/64 02/03/23 02:30 79 14 89 L 02/03/23 02:30 109/70 02/03/23 02:15 37.4 C 76 24 96 02/03/23 02:15 98/64 L 02/03/23 02:01 96/72 L 02/03/23 02:01 37.3 C 71 29 H 98 02/03/23 02:00 37.3 C 72 30 H 99 02/03/23 01:45 37.3 C 70 13 97 02/03/23 01:45 111/66 02/03/23 01:30 37.3 C 73 24 97 02/03/23 01:30 105/60 02/03/23 01:15 37.2 C 69 25 H 98 02/03/23 01:15 107/67 02/03/23 01:00 89/61 L 02/03/23 01:00 37.1 C 74 17 96 02/03/23 00:45 37.1 C 77 22 95 02/03/23 00:45 88/53 L 02/03/23 00:30 36.3 C L 74 23 96 02/03/23 00:30 100/62 02/03/23 00:15 37.3 C 78 16 97 02/03/23 00:15 94/57 L 02/03/23 00:00 37.2 C 81 24 94 02/03/23 00:00 80/40 L 02/02/23 23:45 37.2 C 79 15 96 02/02/23 23:45 82/55 L 02/03/23 00:13 70 02/02/23 23:30 37.0 C 80 17 92 02/02/23 23:30 103/62 02/02/23 23:25 37.1 C 73 17 95 02/02/23 23:20 37.0 C 71 21 96 02/02/23 23:16 128/69 02/02/23 23:16 37.1 C 83 21 95 02/02/23 23:15 37.1 C 77 22 96 02/02/23 23:10 37.1 C 73 32 H 97 02/02/23 23:05 37.1 C 70 26 H 97 02/02/23 23:00 37.1 C 74 20 96 02/02/23 23:00 102/86 02/02/23 22:55 37.1 C 74 23 96 02/02/23 22:50 37.1 C 89 21 95 02/02/23 22:45 37.1 C 77 13 94 02/02/23 22:45 124/81 02/02/23 22:40 37.1 C 71 14 93 02/02/23 22:35 37.1 C 74 26 H 90 02/02/23 22:30 37.1 C 71 24 98 02/02/23 22:30 113/71 02/02/23 22:25 37.1 C 73 26 H 97 02/02/23 22:20 37.1 C 72 27 H 97 02/02/23 22:15 37.1 C 74 15 95 02/02/23 22:15 120/76 02/02/23 22:10 37.1 C 73 13 96 02/02/23 22:10 120/81 02/02/23 22:05 37.0 C 75 22 92 02/02/23 22:05 113/75 02/02/23 22:00 36.9 C 77 14 93 02/02/23 22:00 117/78 02/02/23 21:55 36.9 C 76 23 92 02/02/23 21:55 118/79 02/02/23 21:50 37.0 C 76 25 H 97 02/02/23 21:50 124/78 02/02/23 21:45 37.0 C 74 25 H 95 02/02/23 21:45 122/78 02/02/23 21:40 37.0 C 75 26 H 98 02/02/23 21:40 126/93 02/02/23 21:35 37.0 C 73 18 91 02/02/23 21:35 124/81 02/02/23 21:30 37.1 C 77 19 97 02/02/23 21:30 111/76 02/02/23 21:25 36.6 C 75 23 98 02/02/23 21:25 116/72 02/02/23 21:20 37.2 C 74 24 97 02/02/23 21:20 115/70 02/02/23 21:15 37.3 C 75 23 97 02/02/23 21:15 126/84 02/02/23 21:10 37.3 C 78 24 96 02/02/23 21:10 119/86 02/02/23 21:05 37.3 C 77 23 99 02/02/23 21:05 123/78 02/02/23 21:00 37.3 C 76 22 100 02/02/23 21:00 123/97 02/02/23 20:55 37.3 C 76 16 100 02/02/23 20:55 132/87 02/02/23 20:50 37.3 C 76 20 99 02/02/23 20:50 133/83 02/02/23 20:45 37.4 C 76 23 99 02/02/23 20:45 127/86 02/02/23 20:40 37.3 C 77 22 98 02/02/23 20:40 117/88 02/02/23 20:36 130/77 02/02/23 20:36 37.3 C 79 22 100 02/02/23 20:35 37.2 C 76 24 100 02/02/23 20:30 37.5 C 76 22 99 02/02/23 20:25 37.5 C 75 21 100 02/02/23 20:25 129/87 02/02/23 20:20 37.5 C 73 19 99 02/02/23 20:20 114/80 02/02/23 20:15 37.5 C 73 18 100 02/02/23 20:15 111/76 02/02/23 22:08 Room Air 02/02/23 20:10 37.5 C 72 20 100 BiPAP 02/02/23 20:10 105/73 02/02/23 20:05 37.5 C 73 20 100 02/02/23 20:05 110/74 Laboratory Results Cardiac Enzymes 02/02/23 02/02/23 02/02/23 Range/Units 10:26 17:58 17:58 AST 23 (13-39) U/L Troponin I High Sens 5872.7 H* D (0-20) pg/ml B-Natriuretic Peptide 1394 H (0-100) pg/ml 02/02/23 Range/Units 17:58 AST (13-39) U/L Troponin I High Sens 4842.2 H* (0-20) pg/ml B-Natriuretic Peptide (0-100) pg/ml Coagulation 02/02/2314 Range/Units 17:58 05:22 APTT > 139.0 H* (21.0-31.0) Seconds B-Natriuretic Peptide 1394 H (0-100) pg/ml CBC 02/02/23 02/03/23 Range/Units 17:58 05:22 WBC 13.65 H 14.40 H (4.8-10.8) K/ul RBC 4.12 L 3.79 L (4.70-6.10) M/uL Hgb 13.0 L 12.0 L (14.0-18.0) g/dl Hct 39.7 L 36.6 L (42.0-52.0) % Plt Count 242 224 (130-400) K/uL Neut # (Auto) 9.09 H 8.66 H (1.40-6.50) K/uL Lymph # (Auto) 3.38 4.37 H (1.2-3.4) K/uL [place] # (Auto) 0.82 H 0.85 H (0.11-0.59) K/uL Eos # (Auto) 0.21 0.33 (0-0.50) K/uL Baso # (Auto) 0.07 0.10 (0-0.2) K/uL Comprehensive Metabolic Panel 02/02/23 02/03/23 Range/Units 17:58 05:22 Sodium 133 L 133 L (136-145) mmol/L Potassium 4.1 3.6 (3.5-5.1) mmol/L Chloride 103 101 (98-107) mmol/L Carbon Dioxide 22 23 (21-32) mmol/L BUN 20 21 (6-23) mg/dl Creatinine 1.28 1.28 (0.6-1.4) mg/dl Glucose 246 H 207 H (70-99(Fasting)) mg/dl Calcium 8.3 L 8.0 L (8.6-10.3) mg/dl AST 23 (13-39) U/L ALT 40 (7-52) U/L Alkaline Phosphatase 62 (34-104) U/L Total Protein 6.4 (6.0-8.3) gm/dl Albumin 3.3 L (3.4-5.0) gm/dl Intake and Output 02/02/23 02/03/23 02/03/23 22:59 06:59 14:59 Intake Total 831.633 / 1692.761 536.670 / 1692.761 93.741 / 93.741 Output Total 300 / 440 140 / 440 Balance 531.633 / 1252.761 396.670 / 1252.761 93.741 / 93.741 Intake: IV 831.633 / 1692.761 536.670 / 1692.761 93.741 / 93.741 Amiodarone / D5w 150 mg In 100 200 / 200 ml @ 600 mls/hr IV NOW STA Rx#: [id number] Amiodarone / D5w 360 mg In 200 200.00 / 338.61 138.61 / 338.61 ml @ 0.5 MG/MIN 16.667 mls/hr IV .Q12H [facility] Rx#:[id number] Calcium Gluconate 10% 2,000 mg 70 / 70 In Dextrose 5% 50 ml @ 240 mls/ hr IV NOW ONE Rx#:[id number] Heparin Sodium/Dextrose 25,000 117.9 / 755.15 313.2 / 755.15 units In 500 ml @ 1,350 UNITS/ HR 27 mls/hr IV .[id number] [facility] Rx #:[id number] Magnesium Sulfate / D5w 1 gm In 175.834 / 175.834 100 ml @ 50 mls/hr IV Q2H [facility] Rx#:[id number] Norepinephrine/D5w 4 mg In 250 137.899 / 153.167 14.860 / 153.167 0.408 / 0.408 ml @ 0 MCG/KG/MIN IV .Q0M [facility] Rx#:[id number] Potassium Chloride / Wtr 10 meq 93.333 / 93.333 In 100 ml @ 100 mls/hr IV Q1H [facility] Rx#:[id number] Oral 0 / 0 Output: Urine Amount (Catheter) 300 / 440 140 / 440 Issa/Indwelling 300 / 440 140 / 440 Other: Weight 94.3 kg 96.4 kg Weight Measurement Method Built in [facility] Diagnostic Findings Telemetry: Preceding cardioversion he appeared to have sinus rhythm with very frequent atrial ectopy and what I thought was paroxysmal atrial tachycardia, following cardioversion and on amiodarone he now has predominantly sinus rhythm with occasional very discrete episodes of some type of wide-complex rhythm which seems to start with a premature atrial beat and I still suspect he has an atrial arrhythmia of some type with aberrancy. PG Care Time/CCT Total # of Minutes Spent Total Time Spent with Patient: Total time spent is greater than 50% in coordination of care (as documented) at patient's floor/unit and/or counseling patient: Coding Level of Care Code 77709 SUB INP/OBS CARE 3/50MIN Diagnoses Elevated troponin R77.8 CAD (coronary artery disease) I25.10 Associated angina: without angina Coronary Disease-Associated Artery/Lesion type: [place] artery [place] vs. transplanted heart: [place] heart Cardiomyopathy I42.9 Acute dyspnea R06.00 Hypercholesterolemia E78.00 PAT (paroxysmal atrial tachycardia) I47.1 (2) CAD (coronary artery disease) Associated angina: without angina Coronary Disease-Associated Artery/Lesion type: [place] artery [place] vs. transplanted heart: [place] heart Qualified Code(s): I25.10 - Atherosclerotic heart disease of [place] coronary artery without angina pectoris
--- NOTE | 2023-02-03 08:31 | Critical Care Progress Note ---
Date of Service February 03, 2023 Assessment & Plan (1) PAT (paroxysmal atrial tachycardia): (2) HFrEF (heart failure with reduced ejection fraction): (3) Cardiomyopathy: (4) Elevated troponin: (5) Acute dyspnea: (6) Diabetes mellitus type II, uncontrolled: (7) Obstructive sleep apnea: (8) CAD (coronary artery disease): Plan Reason Critically Ill: 87 YOM with History of CAD and newly identified depressed EF with RWMA however without ST elevations or depressions on ECG. New onset afib (NOAF) vs. atrial tachycardia- with symptomatic RVR. Neuro - No acute needs CAM ICU: NEGATIVE - Post sedation awake and conversant following commands and moving all extremities Cardiac - CAD, NSTEMI, HTN, HLD, HFrEF, wide-complex tachycardia - Patient with likely NSTEMI with resulting depression in EF - Status post DC synchronized cardioversion x1 at 150 flores - ECG post cardioversion without STEMI or ST depression - Continue with amiodarone - Hold antihypertensives and BB while on vasopressors - Keep MAG ~2 and K ~4.0 -TSH within normal limit Respiratory -MATT -Noncompliant with BiPAP/CPAP at home Continue with BiPAP nightly and as needed shortness of breath GI - Continue with pantoprazole RENAL/LYTES - CKD III -Due to BUN/creatinine Avoid nephrotoxic medication - No acute needs ENDO - DMII - ICU hyperglycemic protocol -TSH within normal limit HEME - Hx of myoclonal Bcell lymphocytosis - no acute needs ID - No acute needs - dyspnea most likely cardiac related- no consolidation on CXR, afebrile, follow leukocytosis and fever curve --DNR/DNI --Prophylaxis VTE: Heparin drip on hold GI: Pantoprazole Lines: Peripheral Diet: Cardiac Plan: In/out: +1.2 L, urine output 440 mL, +1.5 L since coming to the hospital Has been off of Levophed since 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 [place]le blood pressure was in the 120s and MAP in the high 90s at the time of examination Potassium being replaced Patient seems to have wide-complex tachycardia inclining more towards SVT versus PAT with aberrancy. We will get in touch with cardiology to see whether he needs to be therapeutically anticoagulated Advance diet as tolerated Monitor the patient and if he is hemodynamically stable can be downgraded later today to a telemetry floor Case was discussed with hospitalist Please note the above document was generated using voice recognition software. It may contain grammatical, syntax or spelling errors.Any formal questions or concerns about the content, text or information contained within the body of this dictation should be directly addressed to the provider for clarification. Admission and Anticipated Discharge Date Admission Date: February 01, 2023 Subjective Patient seen and examined at bedside. No acute distress. Late last evening patient got cardioverted at 150 J and reverted to sinus rhythm He did not get a good night sleep. He had issues with the Issa catheter which was removed. He had hematuria following that a little bit. Denies any abdominal pain right now. Mild nausea No chest pain, no shortness of breath. He says that he feels better compared to yesterday. Denies any headache or dizziness. Review of Systems Review of Systems: All systems reviewed & are unremarkable except as noted in Subjective Physical Exam Physical Exam: Constitutional: No acute distress HEENT: EOMI, PERRLA Respiratory system: Good air entry bilaterally, no wheeze, no rhonchi, no crackles CVS: S1-S2 positive, no murmurs or gallops Abdomen: Soft, nontender, nondistended, positive bowel sounds x4 obese, left lower quadrant pain pump appreciated Extremities: +2 pulses bilaterally radialis/ dorsalis pedis, no cyanosis, no edema Neuro: Awake alert oriented x3 Psych: Normal mood and affect G/U: No Issa Skin: no rashes, warm and dry Lymphatic: no cervical or axillary lymphadenopathy Results & Data Results & Data Vital Signs (Past 12 Hours) Vital Signs Temp Pulse Resp BP Pulse Ox O2 Del Method O2 Flow Rate 02/03/23 06:25 120/84 02/03/23 06:25 70 19 98 02/03/23 06:20 91/58 L 02/03/23 06:20 63 13 97 02/03/23 06:15 63 19 96 02/03/23 06:15 81/54 L 02/03/23 06:10 82/51 L 02/03/23 06:10 62 19 96 02/03/23 06:08 65 19 95 02/03/23 06:08 78/50 L 02/03/23 06:07 64 18 96 02/03/23 06:07 79/50 L 02/03/23 06:05 78/50 L 02/03/23 06:05 66 18 96 02/03/23 06:00 63 19 95 02/03/23 06:00 78/53 L 02/03/23 05:55 64 18 96 02/03/23 05:55 84/53 L 02/03/23 05:50 95/59 L 02/03/23 05:50 73 20 95 02/03/23 05:46 72 19 94 02/03/23 05:46 91/56 L 02/03/23 05:45 66 32 H 95 02/03/23 05:45 89/60 L 02/03/23 05:40 93/60 L 02/03/23 05:40 67 14 95 02/03/23 05:35 104/67 02/03/23 05:35 68 9 L 97 02/03/23 05:30 77 13 94 02/03/23 05:30 103/71 02/03/23 05:25 104/63 02/03/23 05:25 72 25 H 95 02/03/23 05:20 109/71 02/03/23 05:20 77 19 95 02/03/23 05:15 77 17 95 02/03/23 05:15 100/68 02/03/23 05:10 87/62 L 02/03/23 05:10 123 H 24 97 02/03/23 05:00 104/69 02/03/23 05:03 Nasal Cannula 2 02/03/23 05:00 77 16 96 02/03/23 04:53 128 H 18 91 02/03/23 04:53 92/63 L 02/03/23 04:45 124 H 16 93 02/03/23 04:45 100/70 02/03/23 04:30 72 12 95 02/03/23 04:30 112/71 02/03/23 04:15 102 H 21 97 02/03/23 04:15 113/67 02/03/23 04:00 79 13 86 L 02/03/23 04:00 107/71 02/03/23 03:45 77 13 94 02/03/23 03:45 98/61 L 02/03/23 03:30 72 9 L 89 L 02/03/23 03:30 93/60 L 02/03/23 03:15 71 12 95 02/03/23 03:15 102/64 02/03/23 03:00 66 13 97 02/03/23 03:00 103/57 L 02/03/23 02:45 80 15 92 02/03/23 02:45 101/64 02/03/23 02:30 79 14 89 L 02/03/23 02:30 109/70 02/03/23 02:15 37.4 C 76 24 96 02/03/23 02:15 98/64 L 02/03/23 02:01 96/72 L 02/03/23 02:01 37.3 C 71 29 H 98 02/03/23 02:00 37.3 C 72 30 H 99 02/03/23 01:45 37.3 C 70 13 97 02/03/23 01:45 111/66 02/03/23 01:30 37.3 C 73 24 97 02/03/23 01:30 105/60 02/03/23 01:15 37.2 C 69 25 H 98 02/03/23 01:15 107/67 02/03/23 01:00 89/61 L 02/03/23 01:00 37.1 C 74 17 96 02/03/23 00:45 37.1 C 77 22 95 02/03/23 00:45 88/53 L 02/03/23 00:30 36.3 C L 74 23 96 02/03/23 00:30 100/62 02/03/23 00:15 37.3 C 78 16 97 02/03/23 00:15 94/57 L 02/03/23 00:00 37.2 C 81 24 94 02/03/23 00:00 80/40 L 02/02/23 23:45 37.2 C 79 15 96 02/02/23 23:45 82/55 L 02/03/23 00:13 70 02/02/23 23:30 37.0 C 80 17 92 02/02/23 23:30 103/62 02/02/23 23:25 37.1 C 73 17 95 02/02/23 23:20 37.0 C 71 21 96 02/02/23 23:16 128/69 02/02/23 23:16 37.1 C 83 21 95 02/02/23 23:15 37.1 C 77 22 96 02/02/23 23:10 37.1 C 73 32 H 97 02/02/23 23:05 37.1 C 70 26 H 97 02/02/23 23:00 37.1 C 74 20 96 02/02/23 23:00 102/86 02/02/23 22:55 37.1 C 74 23 96 02/02/23 22:50 37.1 C 89 21 95 02/02/23 22:45 37.1 C 77 13 94 02/02/23 22:45 124/81 02/02/23 22:40 37.1 C 71 14 93 02/02/23 22:35 37.1 C 74 26 H 90 02/02/23 22:30 37.1 C 71 24 98 02/02/23 22:30 113/71 02/02/23 22:25 37.1 C 73 26 H 97 02/02/23 22:20 37.1 C 72 27 H 97 02/02/23 22:15 37.1 C 74 15 95 02/02/23 22:15 120/76 02/02/23 22:10 37.1 C 73 13 96 02/02/23 22:10 120/81 02/02/23 22:05 37.0 C 75 22 92 02/02/23 22:05 113/75 02/02/23 22:00 36.9 C 77 14 93 02/02/23 22:00 117/78 02/02/23 21:55 36.9 C 76 23 92 02/02/23 21:55 118/79 02/02/23 21:50 37.0 C 76 25 H 97 02/02/23 21:50 124/78 02/02/23 21:45 37.0 C 74 25 H 95 02/02/23 21:45 122/78 02/02/23 21:40 37.0 C 75 26 H 98 02/02/23 21:40 126/93 02/02/23 21:35 37.0 C 73 18 91 02/02/23 21:35 124/81 02/02/23 21:30 37.1 C 77 19 97 02/02/23 21:30 111/76 02/02/23 21:25 36.6 C 75 23 98 02/02/23 21:25 116/72 02/02/23 21:20 37.2 C 74 24 97 02/02/23 21:20 115/70 02/02/23 21:15 37.3 C 75 23 97 02/02/23 21:15 126/84 02/02/23 21:10 37.3 C 78 24 96 02/02/23 21:10 119/86 02/02/23 21:05 37.3 C 77 23 99 02/02/23 21:05 123/78 02/02/23 21:00 37.3 C 76 22 100 02/02/23 21:00 123/97 02/02/23 20:55 37.3 C 76 16 100 02/02/23 20:55 132/87 02/02/23 20:50 37.3 C 76 20 99 02/02/23 20:50 133/83 02/02/23 20:45 37.4 C 76 23 99 02/02/23 20:45 127/86 02/02/23 20:40 37.3 C 77 22 98 02/02/23 20:40 117/88 02/02/23 20:36 130/77 02/02/23 20:36 37.3 C 79 22 100 02/02/23 20:35 37.2 C 76 24 100 02/02/23 20:30 37.5 C 76 22 99 02/02/23 20:25 37.5 C 75 21 100 02/02/23 20:25 129/87 02/02/23 22:08 Room Air Laboratory Results 02/03/23 05:22 02/03/23 05:22 Coding Level of Care Code 27173 SUB INP/OBS CARE 3/50MIN Diagnoses PAT (paroxysmal atrial tachycardia) I47.1 HFrEF (heart failure with reduced ejection fraction) I50.20 Cardiomyopathy I42.9 Elevated troponin R77.8 Acute dyspnea R06.00 Diabetes mellitus type II, uncontrolled E11.65 Glycemic state: with hyperglycemia Obstructive sleep apnea G47.33 CAD (coronary artery disease) I25.10 Coronary Disease-Associated Artery/Lesion type: [place] artery [place] vs. transplanted heart: [place] heart Associated angina: without angina (6) Diabetes mellitus type II, uncontrolled Glycemic state: with hyperglycemia Qualified Code(s): E11.65 - Type 2 diabetes mellitus with hyperglycemia (8) CAD (coronary artery disease) Coronary Disease-Associated Artery/Lesion type: [place] artery [place] vs. transplanted heart: [place] heart Associated angina: without angina Qualified Code(s): I25.10 - Atherosclerotic heart disease of [place] coronary artery without angina pectoris
[2023-02-03] MEDS: ASPIRIN 81 MG ECTAB PO SCH (08:47)
[2023-02-03] MEDS: PANTOprazole 40 MG TAB PO SCH (08:48)
[2023-02-03] MEDS: POLYETHYLENE (MIRALAX) 17 GM PACK PO SCH (08:55)
[2023-02-03] MEDS: INSULIN ASPART PER UNIT CHARGE SC SCH ×4 (09:16→22:40)
[2023-02-03] MEDS: LANTUS PER UNIT CHARGE SQ SCH ×2 (09:17→22:41)
[2023-02-03 10:39] LABS: Partial Thromboplastin Time 28.6 Seconds (21.0-31.0)
[2023-02-03] MEDS: AMIODARONE / D5W 360 MG/200 ML BAG IV SCH ×2 (11:18→22:40)
[2023-02-03] MEDS ORDERED: ONDANSETRON INJ 2 MG/ML 2 ML VIAL IV STA (16:28)
[2023-02-03] MEDS: HEPARIN SODIUM/DEXTROSE 25,000 UNITS/500 ML BAG IV SCH ×3 (16:48→20:30)
[2023-02-03 18:55] LABS: Partial Thromboplastin Ratio 1.2; Partial Thromboplastin Time 33.3 Seconds (21.0-31.0)
[2023-02-03] MEDS ORDERED: HEPARIN SOD (PORCINE) 1000 UNIT/ML IV ONE (19:30)
[2023-02-03] MEDS: NOREPINEPHRINE/D5W 4 MG/250 ML PLCT IV SCH (20:30)
--- NOTE | 2023-02-03 20:31 | Electrocardiogram Report ---
Test Reason : Blood Pressure : / mmHG Vent. Rate : 129 BPM Atrial Rate : 021 BPM P-R Int : 000 ms QRS Dur : 154 ms QT Int : 408 ms P-R-T Axes : 000 124 -45 degrees QTc Int : 597 ms Wide QRS tachycardia with occasional Premature ventricular complexes Right bundle branch block Left posterior fascicular block Suspect aberrancy Abnormal ECG When compared with ECG of 01-FEB-2023 11:42, Wide QRS tachycardia has replaced Sinus rhythm Confirmed by Patrick Win ([id number]) on 02/03/2023 8:30:53 PM Referred By: REFERRED SELF Confirmed By:Patrick Win
[2023-02-03] MEDS: LATANOPROST 0.005% OP SOLN 2.5 ML BTL OP SCH (20:32)
--- NOTE | 2023-02-03 20:32 | Electrocardiogram Report ---
Test Reason : Blood Pressure : / mmHG Vent. Rate : 108 BPM Atrial Rate : 107 BPM P-R Int : 186 ms QRS Dur : 102 ms QT Int : 326 ms P-R-T Axes : 021 -36 094 degrees QTc Int : 436 ms Sinus rhythm with PVCs and PACs Left axis deviation Inferior infarct , age undetermined Abnormal ECG When compared with ECG of 02-FEB-2023 01:51, (unconfirmed) Wide QRS rhythm is no longer present Confirmed by Patrick Win ([id number]) on 02/03/2023 8:32:12 PM Referred By: REFERRED SELF Confirmed By:Patrick Win
--- NOTE | 2023-02-03 21:16 | Electrocardiogram Report ---
Test Reason : Blood Pressure : / mmHG Vent. Rate : 136 BPM Atrial Rate : 055 BPM P-R Int : 000 ms QRS Dur : 154 ms QT Int : 382 ms P-R-T Axes : 000 129 -41 degrees QTc Int : 574 ms Poor data quality, interpretation may be adversely affected Wide QRS tachycardia with Premature ventricular complexes or Fusion complexes Right bundle branch block Left posterior fascicular block Bifascicular block Abnormal ECG When compared with ECG of 02-FEB-2023 01:51, (unconfirmed) Wide QRS rhythm is now present Confirmed by Patrick Win ([id number]) on 02/03/2023 9:16:30 PM Referred By: REFERRED SELF Confirmed By:Patrick Win
--- NOTE | 2023-02-03 21:30 | Electrocardiogram Report ---
Test Reason : Blood Pressure : / mmHG Vent. Rate : 076 BPM Atrial Rate : 076 BPM P-R Int : 206 ms QRS Dur : 100 ms QT Int : 418 ms P-R-T Axes : 009 -33 092 degrees QTc Int : 470 ms Normal sinus rhythm Left axis deviation Nonspecific T wave abnormality Prolonged QT Abnormal ECG When compared with ECG of 02-FEB-2023 20:42, (unconfirmed) No significant change was found Confirmed by Patrick Win ([id number]) on 02/03/2023 9:30:29 PM Referred By: REFERRED SELF Confirmed By:Patrick Win
[2023-02-04 02:10] LABS: Partial Thromboplastin Ratio 1.8
[2023-02-04 02:15] LABS: Partial Thromboplastin Time 50.6 Seconds (21.0-31.0)
[2023-02-04] MEDS: ACETAMINOPHEN 325 MG TAB PO PRN (03:00)
[2023-02-04 04:52] LABS: Basophils # (auto) 0.07 K/uL (0-0.2); Basophils % (auto) 0.6 %; Eosinophils # (auto) 0.26 K/uL (0-0.50); Eosinophils % (auto) 2.1 %; Hematocrit (blood only) 35.4 % (42.0-52.0); Hemoglobin 11.5 g/dl (14.0-18.0); Immature Granulocytes # (auto) 0.06 K/uL (0.01-0.20); Immature Granulocytes % (auto) 0.5 %; Lymphocytes # (auto) 3.84 K/uL (1.2-3.4); Lymphocytes % (auto) 31.5 %; Mean Corpuscular Hemoglobin 31.5 pg (25.0-34.0); Mean Corpuscular Hgb Conc 32.5 g/dL (32.0-36.0); Mean Platelet Volume 12.1 fL (9.4-12.4); Monocytes # (auto) 0.73 K/uL (0.11-0.59); Neutrophils # (auto) 7.23 K/uL (1.40-6.50); Neutrophils % (auto) 59.3 %; Platelet Count 203 K/uL (130-400); RDW Coefficient of Variation 13.1 % (11.5-14.5); RDW Standard Deviation 46.5 fL (36.4-46.3); Red Blood Count 3.65 M/uL (4.70-6.10); White Blood Count 12.19 K/ul (4.8-10.8)
[2023-02-04 05:08] LABS: BUN Creatinine Ratio 14.8 (10-20); Creatinine Clr Calc Pharmacy 39.8 ml/min; Est GFR (African American) 51.1 ml/min; Est GFR (Non-African American) 44.1 ml/min; Magnesium 2.2 mg/dl (1.7-2.4); Phosphorus 3.7 mg/dl (2.5-4.9)
[2023-02-04 05:43] LABS: Partial Thromboplastin Ratio 1.7
[2023-02-04 05:59] LABS: Partial Thromboplastin Time 47.9 Seconds (21.0-31.0)
[2023-02-04] MEDS: ICU ELECTROLYTE REPLACEMENT PROTOCOL SCH (07:18)
[2023-02-04] MEDS ORDERED: SODIUM CHLORIDE 0.9% 1000ML 1,000 ML IV SCH (08:15)
[2023-02-04] MEDS: INSULIN ASPART PER UNIT CHARGE SC SCH ×4 (08:19→21:17)
--- NOTE | 2023-02-04 08:31 | Critical Care Progress Note ---
Date of Service February 04, 2023 Assessment & Plan (1) PAT (paroxysmal atrial tachycardia): (2) HFrEF (heart failure with reduced ejection fraction): (3) Cardiomyopathy: (4) Elevated troponin: (5) Acute dyspnea: (6) Diabetes mellitus type II, uncontrolled: (7) Obstructive sleep apnea: (8) CAD (coronary artery disease): Plan 87-year-old man with presumptive ischemic cardiomyopathy. Awaiting cardiac cath. History notable for convulsions secondary to contrast. Cardiology is going to consider pretreatment with steroids. Mild NANCY today. We will give 80 cc an hour of NS for total 1 L. Continue amiodarone for atrial tachycardia. Appreciate EP input. Holding beta-blockers in the setting of acute cardiomyopathy. Holding YESSY inhibitor in the setting of NANCY and cardiomyopathy. Continue asa. Off vasopressors at this time. Patient unable to go for left heart cath today, recommend downgrade to PCU status. Admission and Anticipated Discharge Date Admission Date: February 01, 2023 Subjective Denies any specific complaint at this time. Eager to go home. Awaiting cardiac procedure. On heparin and amnio drip.Off vasopressors. Review of Systems Review of Systems: All systems reviewed & are unremarkable except as noted in Subjective Physical Exam Physical Exam: Constitutional: No acute distress HEENT: EOMI, PERRLA Respiratory system: Good air entry bilaterally, no wheeze, no rhonchi, no crackles CVS: S1-S2 positive, no murmurs or gallops Abdomen: Soft, nontender, nondistended, positive bowel sounds x4 obese Extremities: +2 pulses bilaterally radialis/ dorsalis pedis, no cyanosis, no edema Neuro: Awake alert oriented x3 Psych: Normal mood and affect G/U: No [place] Skin: no rashes, warm and dry Lymphatic: no cervical or axillary lymphadenopathy Results & Data Results & Data Vital Signs (Past 12 Hours) Vital Signs Temp Pulse Resp BP Pulse Ox O2 Del Method O2 Flow Rate 02/04/23 07:15 77 20 93 02/04/23 07:15 117/83 02/04/23 07:00 76 17 94 02/04/23 07:00 121/84 02/04/23 06:45 78 17 98 02/04/23 06:45 114/80 02/04/23 06:30 80 20 92 02/04/23 06:30 92/64 L 02/04/23 06:23 95/64 L 02/04/23 06:23 71 14 96 02/04/23 06:22 82/53 L 02/04/23 06:22 63 13 95 02/04/23 06:15 61 12 94 02/04/23 06:00 61 15 94 02/04/23 05:45 67 31 H 95 02/04/23 05:45 89/59 L 02/04/23 05:30 70 20 02/04/23 05:15 68 16 02/04/23 05:00 71 12 96 02/04/23 04:52 106/74 02/04/23 04:52 72 15 98 02/04/23 04:45 65 5 L 02/04/23 04:45 74/50 L 02/04/23 04:30 68 7 L 98 02/04/23 04:30 85/53 L 02/04/23 04:15 69 9 L 96 02/04/23 04:15 96/63 L 02/04/23 04:00 67 6 L 97 02/04/23 03:48 67 21 97 02/04/23 03:48 82/55 L 02/04/23 03:45 61 16 97 02/04/23 03:45 68/43 L 02/04/23 03:30 64 15 02/04/23 03:30 81/46 L 02/04/23 03:15 71 20 95 02/04/23 03:15 107/75 02/04/23 03:00 75 10 L 96 02/04/23 02:57 106/71 02/04/23 02:57 78 19 95 02/04/23 02:45 79 18 90 02/04/23 02:30 83 15 98 02/04/23 02:15 73 24 90 02/04/23 02:00 74 12 95 02/04/23 01:45 71 21 95 02/04/23 01:30 70 21 95 02/04/23 01:15 75 18 95 02/04/23 01:00 72 8 L 97 02/04/23 00:45 73 21 82 L 02/04/23 00:30 74 15 79 L 02/04/23 00:15 73 21 93 02/04/23 00:00 76 21 86 L 02/03/23 23:45 70 16 84 L 02/03/23 23:30 79 18 93 02/03/23 23:15 82 25 H 96 02/03/23 23:00 103 H 21 78 L 02/03/23 22:59 99 H 24 86 L 02/03/23 22:59 103/64 02/03/23 22:57 104/75 02/03/23 22:57 89 18 94 02/03/23 22:45 84 20 93 02/03/23 22:45 120/77 02/03/23 22:30 84 22 93 02/03/23 22:30 122/82 02/03/23 22:15 81 20 94 02/03/23 22:15 118/81 02/03/23 22:00 79 20 96 02/03/23 22:00 116/77 02/03/23 21:45 76 13 96 02/03/23 21:45 118/80 02/03/23 21:30 74 10 L 95 02/03/23 21:30 114/86 02/03/23 21:15 73 24 95 02/03/23 21:15 110/71 02/03/23 21:00 81 18 94 02/03/23 21:00 119/87 02/03/23 20:45 78 20 95 02/03/23 20:45 123/86 02/03/23 20:30 79 21 94 02/03/23 20:30 118/80 02/04/23 00:00 36.6 C 02/03/23 22:00 Room Air 02/04/23 00:28 74 02/04/23 00:45 84 L Nasal Cannula 0 Coding Level of Care Code 02175 SUB INP/OBS CARE 2/35MIN Diagnoses PAT (paroxysmal atrial tachycardia) I47.1 HFrEF (heart failure with reduced ejection fraction) I50.20 Cardiomyopathy I42.9 Elevated troponin R77.8 Acute dyspnea R06.00 Diabetes mellitus type II, uncontrolled E11.65 Glycemic state: with hyperglycemia Obstructive sleep apnea G47.33 CAD (coronary artery disease) I25.10 Coronary Disease-Associated Artery/Lesion type: [place] artery [place] vs. transplanted heart: [place] heart Associated angina: without angina (6) Diabetes mellitus type II, uncontrolled Glycemic state: with hyperglycemia Qualified Code(s): E11.65 - Type 2 diabetes mellitus with hyperglycemia (8) CAD (coronary artery disease) Coronary Disease-Associated Artery/Lesion type: [place] artery [place] vs. transplanted heart: [place] heart Associated angina: without angina Qualified Code(s): I25.10 - Atherosclerotic heart disease of [place] coronary artery without angina pectoris
[2023-02-04] MEDS: AMIODARONE / D5W 360 MG/200 ML BAG IV SCH (09:46)
[2023-02-04] MEDS: ASPIRIN 81 MG ECTAB PO SCH (09:48)
[2023-02-04] MEDS ORDERED: HEPARIN (PORCINE) 1000 UNIT/ML 10 ML (CATH LAB USE ONLY) ONE (10:54)
[2023-02-04] MEDS ORDERED: niCARdipine HCL INJ 2.5 MG/ML 10 ML AMP ONE (10:54)
[2023-02-04] MEDS ORDERED: fentaNYL citrate PF 100 MCG/2 ML VIAL ONE (10:54)
[2023-02-04] MEDS ORDERED: MIDAZOLAM HCL 1 MG/ML 2ML VIAL ONE (10:54)
[2023-02-04] MEDS ORDERED: diphenhydrAMINE 50 MG/ML VIAL ONE (10:55)
[2023-02-04] MEDS ORDERED: methylPREDNISolone 125 MG/2 ML VIAL ONE (10:55)
[2023-02-04] MEDS ORDERED: NITROGLYCERIN/D5W 100MCG/ML 20ML SYR ONE (10:55)
[2023-02-04] MEDS ORDERED: FAMOTIDINE 20MG/5ML IV PUSH IV ONE (10:56)
[2023-02-04] MEDS ORDERED: ONDANSETRON INJ 2 MG/ML 2 ML VIAL ONE (10:57)
--- NOTE | 2023-02-04 11:49 | Pre Anesthesia Assessment ---
Date of Service February 04, 2023 Pre Sedation Assessment Vital Signs Temp Pulse Resp BP Pulse Ox O2 Del Method O2 Flow Rate 02/04/23 09:30 75 15 118/84 94 Room Air 02/04/23 09:15 79 18 94 Room Air 02/04/23 09:15 132/89 02/04/23 09:00 75 21 115/73 94 02/04/23 08:30 69 18 102/74 95 Room Air 02/04/23 08:15 75 16 114/79 94 Room Air 02/04/23 08:00 77 16 110/79 94 Room Air 02/04/23 07:46 78 17 112/80 97 Room Air 02/04/23 07:30 71 14 116/80 92 Room Air 02/04/23 09:27 36.6 C 02/04/23 09:21 74 02/04/23 07:15 77 20 93 02/04/23 07:15 117/83 02/04/23 07:00 76 17 94 02/04/23 07:00 121/84 02/04/23 06:45 78 17 98 02/04/23 06:45 114/80 02/04/23 06:30 80 20 92 02/04/23 06:30 92/64 L 02/04/23 06:23 95/64 L 02/04/23 06:23 71 14 96 02/04/23 06:22 82/53 L 02/04/23 06:22 63 13 95 02/04/23 06:15 61 12 94 02/04/23 06:00 61 15 94 02/04/23 05:45 67 31 H 95 02/04/23 05:45 89/59 L 02/04/23 05:30 70 20 02/04/23 05:15 68 16 02/04/23 05:00 71 12 96 02/04/23 04:52 106/74 02/04/23 04:52 72 15 98 02/04/23 04:45 65 5 L 02/04/23 04:45 74/50 L 02/04/23 04:30 68 7 L 98 02/04/23 04:30 85/53 L 02/04/23 04:15 69 9 L 96 02/04/23 04:15 96/63 L 02/04/23 04:00 67 6 L 97 02/04/23 03:48 67 21 97 05/15/23 03:48 82/55 L 02/04/23 03:45 61 16 97 02/04/23 03:45 68/43 L 02/04/23 03:30 64 15 02/04/23 03:30 81/46 L 02/04/23 03:15 71 20 95 02/04/23 03:15 107/75 02/04/23 03:00 75 10 L 96 02/04/23 02:57 106/71 02/04/23 02:57 78 19 95 02/04/23 02:45 79 18 90 02/04/23 02:30 83 15 98 02/04/23 02:15 73 24 90 02/04/23 02:00 74 12 95 02/04/23 01:45 71 21 95 02/04/23 01:30 70 21 95 02/04/23 01:15 75 18 95 02/04/23 01:00 72 8 L 97 02/04/23 00:45 73 21 82 L 02/04/23 00:30 74 15 79 L 02/04/23 00:15 73 21 93 02/04/23 00:00 76 21 86 L 02/03/23 23:45 70 16 84 L 02/03/23 23:30 79 18 93 02/03/23 23:15 82 25 H 96 02/03/23 23:00 103 H 21 78 L 02/03/23 22:59 99 H 24 86 L 02/03/23 22:59 103/64 02/03/23 22:57 104/75 02/03/23 22:57 89 18 94 02/03/23 22:45 84 20 93 02/03/23 22:45 120/77 02/03/23 22:30 84 22 93 02/03/23 22:30 122/82 02/03/23 22:15 81 20 94 02/03/23 22:15 118/81 02/03/23 22:00 79 20 96 02/03/23 22:00 116/77 02/03/23 21:45 76 13 96 02/03/23 21:45 118/80 02/03/23 21:30 74 10 L 95 02/03/23 21:30 114/86 02/03/23 21:15 73 24 95 05/14/23 21:15 110/71 02/03/23 21:00 81 18 94 02/03/23 21:00 119/87 02/03/23 20:45 78 20 95 02/03/23 20:45 123/86 02/03/23 20:30 79 21 94 02/03/23 20:30 118/80 02/03/23 20:15 85 18 94 02/03/23 20:15 117/83 02/03/23 20:00 70 7 L 96 02/04/23 00:00 36.6 C 02/03/23 20:00 36.5 C 02/03/23 22:00 Room Air 02/04/23 00:28 74 02/04/23 00:45 84 L Nasal Cannula 0 02/03/23 18:00 77 12 94 02/03/23 18:00 95/58 L 02/03/23 17:45 94/61 L 02/03/23 17:45 79 14 96 02/03/23 17:16 112/64 02/03/23 17:16 89 15 97 02/03/23 17:00 74 20 90 02/03/23 17:00 87/63 L 02/03/23 16:45 77 18 94 02/03/23 16:45 87/66 L 02/03/23 16:30 81 15 95 02/03/23 16:30 111/78 02/03/23 16:15 70 28 H 96 02/03/23 16:15 107/64 02/03/23 16:00 79 25 H 98 02/03/23 16:00 105/81 02/03/23 15:45 84 24 93 02/03/23 15:30 71 18 97 02/03/23 15:30 108/84 02/03/23 15:15 72 27 H 94 02/03/23 15:15 111/70 02/03/23 15:00 81 15 95 02/03/23 15:00 119/77 02/03/23 14:45 76 13 98 02/03/23 14:45 110/72 02/03/23 14:38 102/77 02/03/23 14:38 70 16 96 02/03/23 14:30 74 20 95 02/03/23 14:15 68 26 H 95 02/03/23 14:15 106/72 02/03/23 14:00 71 17 96 02/03/23 14:00 119/80 02/03/23 13:45 77 17 97 02/03/23 13:45 121/70 02/03/23 13:30 65 28 H 95 02/03/23 13:30 104/60 02/03/23 13:16 118/77 02/03/23 13:16 80 20 95 02/03/23 13:15 80 20 93 02/03/23 13:01 103/64 02/03/23 13:01 71 18 92 02/03/23 13:00 69 22 94 02/03/23 12:45 69 12 97 02/03/23 12:45 117/71 02/03/23 12:30 75 21 94 02/03/23 12:30 110/72 02/03/23 12:15 78 22 94 02/03/23 12:15 94/61 L 02/03/23 12:00 64 29 H 95 02/03/23 12:00 99/64 L Cardiovascular Additional Comments: Regular rate and rhythm. S4 gallop. 1+ bilateral lower extremity edema Respiratory Additional Comments: Bibasilar crackles. Otherwise clear. Pre-Sedation Airway Assessment Smoking Status: Former smoker Hx Sleep Apnea: No Short, Thick Neck: No Thyromental Distance: < 3.5 Finger Breadths Oral Cavity: + Dental Abnormalities Mallampati Class: III Mallampati 3 ASA: ASA3 NPO Status Date of Last Intake of Fluids: 02/02/23 Time of Last Intake of Fluids: 12:00 Date of Last Intake of Solid Food: 02/02/23 Time of Last Intake of Solid Foods: 12:00 Procedure Planning Contraindications for Sedation: none Notes The planned sedation has been discussed with the patient. Informed Consent was obtained. I have identified the patient, determined the appropriateness of sedation and have assessed the patient immediately prior to the procedure. All medicine(s) and interventions are by my order. [facility] [place] Procedure Codes (Charges) Indication for Procedure Indication for procedure: Non-ST elevation RI, cardiomyopathy Sedation/Anesthesia Procedure 1: Sedation/Anesthesia: 69853 Mod Sedation by the same physician;Init15 Min Child Age 5 & Up (Initial 15 min, start 11:08, and 11: 41) Total Sedation Time (minutes): 33 Procedure 2: Sedation/Anesthesia: 57744 Mod Sedation by the same physician; Ea [id number] Minutes (Additional 18 minutes) Total Sedation Time (minutes): 33
--- NOTE | 2023-02-04 11:59 | Cardiac Catheterization ---
[facility] Data: [employer] Cardiac Status Clinical evaluation leading to the procedure CAD Presenation: Non STEMI Anginal Classification: No Symptoms Heart Failure: NYHA Class: CCS IV Cardiogenic Shock within 24 Hours: No Cardiac Arrest within 24 Hours: No Imaging Studies Past 6 Months: No Stress Studies Past 6 Months: No Coronary Anatomy Dominant: Right Left Main (% Stenosis): Distal (70%) LAD (% Stenosis): Proximal (100%) Circumflex (% Stenosis): Proximal (100%) RCA (% Stenosis): Proximal (Diffuse mild to moderate), Mid (Diffuse mild to moderate) and Distal (Subtotal occlusion 99%) R PDA (% Stenosis): Proximal (Shelflike 90%) Grafts - LAD (%): Normal (Widely patent, antegrade flow LAD, retrograde flow LAD to diagonal) Grafts - Circumflex (%): Normal (Appears occluded) Grafts - RCA (%): Normal (Appears occluded) Aortography Aortic Regurgitation: Dilated aortic root and ascending aorta. Diagnostic Physicians Name: Cuco Kohler MD, PhD Closure Device Percutaneous Entry Location: Femoral Closure Device: Angio-Seal Recommendations: Medical Therapy and/or Counseling Intraprocedure Events Significant Disection: No Perforation: No Cardiac Cath Procedure Full Procedure Date February 04, 2023 Pre-Procedure Diagnosis Pre-Procedure Diagnosis: Non STEMI and Cardiomyopathy AUC Score AUC Score: 07 Post-Procedure Diagnosis Post-Procedure Diagnosis: Severe CAD Procedure(s) Performed Procedure(s) Performed: Coronary Angiography, Ultrasound Guided Vascular Access, Aortography and Bypass Graft Angiography Cigarette Examiner Cuco Kohler MD, PhD Estimated Blood Loss Estimated Blood Loss: 15 mL Medication(s) Medication(s): Diphenhydramine, Fentanyl and Versed Summary of Findings Brief description: Patient was brought to the cardiac catheterization suite where he was shaved and prepped in a sterile fashion. Sedated using IV Versed and fentanyl. He was premedicated for IVP contrast allergy using 125 mg IV Solu-Medrol, 20 mg IV Pepcid, and 25 mg IV Benadryl. Soft tissues of the right groin were anesthetized using 10 mL of 1% Xylocaine. Using the ultrasound for guidance (image saved), the right femoral artery was accessed and a 6 Swazi femoral artery sheath was placed. All catheters were advanced and exchanged over a 0.035 J-tip wire. Left coronary angiography was performed in orthogonal views with a 5 Swazi JL 4 diagnostic catheter. Right coronary angiography was performed in orthogonal views with a 5 Swazi JR 3.5 diagnostic catheter. LARIOS to LAD bypass graft angiography was performed with a 5 Swazi JR4 diagnostic catheter. Attempts to selectively cannulate venous bypass grafts were unsuccessful. We did utilize a long femoral sheath to reduce traction in the iliofemoral vessel which was quite tortuous. We also utilized an Amplatz superstiff wire. Despite this we could not cannulate the bypass grafts. Therefore, we proceeded with nonselective supravalvular aortography. Supravalvular aortography was performed using a 5 Swazi pigtail catheter. Diagnostic catheters were removed. Limited right femoral artery angiography was performed to evaluate for closure. Findings were favorable, therefore, the 6 Swazi sheath was exchanged for a 6 Swazi Angio-Seal closure device. This was deployed in the recommended fashion. We obtained immediate hemostasis and the patient remained hemodynamically stable. Patient was returned to the recovery area. This ended the case. Coronary and bypass graft angiography: LMT: Large-caliber vessel bifurcating into LAD and circumflex. Distal 70% stenosis. The LAD and circumflex are 100% occluded proximally and are seen to be heavily calcified. LAD: 100% occluded proximally. LCx: 100% occluded proximally. RCA: Large caliber and dominant vessel. Heavy calcification throughout. Diffuse mild to moderate disease until the distal segment where there is a 99 to 100% occlusion before the bifurcation. It then provides a medium caliber posterolateral branch and a medium to large caliber PDA. The proximal PDA has a shelflike lesion of 90 to 95%. LARIOS to LAD: Large caliber widely patent graft. Touching on the early distal LAD. Provides antegrade flow down the LAD and retrograde flow up to a large diagonal which has good flow. Supravalvular aortography: The aortic root is dilated as is the ascending aorta. It appears that 2 vein grafts are occluded at their origins. Hemodynamics Rest Ao:: 108/79 mmHg Final Ao: 99/69 mmHg LV: Not performed Recommendations Recommendations: Medical Therapy and/or Counseling Radiation Exposure (mGy) 1561 mGy, fluoroscopy time 9.8 minutes Contrast (mls) 115 mL Procedural Complication(s) None Disposition Recovery Room\PACU I attest to the content of the Intraoperative Record and any orders documented therein. Any exceptions are noted below. Poptent Card Cath Procedure Codes Cardiac Catheterization Procedure 1: Cardiovascular Cath Procedures: 97463 Coronaries and Grafts/IM (venous & atrial) & RHC Therapeutic Services & Ancillary Procedure 1: Cardiovascular Tx and Anc Procedures: 21432 Ultrasonic Guidance Vascular Access Procedure 2: Cardiovascular Tx and Anc Procedures: 35983 Supravalvular Aortography Moderate Sedation Procedure 1: Sedation/Anesthesia: 40183 Mod Sedation by the same physician;Init15 Min Child Age 5 & Up (Initial 15 min, total 33 min.) Procedure 2: Sedation/Anesthesia: 14752 Mod Sedation by the same physician; Ea [id number] Minutes (Additional 18 min, total 33 min) PG Care Time/CCT Total # of Minutes Spent Total Time Spent with Patient: Total time spent is greater than 50% in coordination of care (as documented) at patient's floor/unit and/or counseling patient:
--- NOTE | 2023-02-04 12:11 | Post Anesthesia Assessment ---
Date of Service February 04, 2023 Post Sedation Assessment Vital Signs Temp Pulse Pulse Resp BP BP Pulse Ox 02/04/23 12:02 70 16 112/77 94 02/04/23 11:54 70 16 125/94 94 02/04/23 09:30 75 15 118/84 94 02/04/23 09:15 79 18 94 02/04/23 09:15 132/89 02/04/23 09:00 75 21 115/73 94 02/04/23 08:30 69 18 102/74 95 02/04/23 08:15 75 16 114/79 94 02/04/23 08:00 77 16 110/79 94 02/04/23 07:46 78 17 112/80 97 02/04/23 07:30 71 14 116/80 92 02/04/23 09:27 36.6 C 02/04/23 09:21 74 02/04/23 07:15 77 20 93 02/04/23 07:15 117/83 02/04/23 07:00 76 17 94 02/04/23 07:00 121/84 02/04/23 06:45 78 17 98 02/04/23 06:45 114/80 02/04/23 06:30 80 20 92 02/04/23 06:30 92/64 L 02/04/23 06:23 95/64 L 02/04/23 06:23 71 14 96 02/04/23 06:22 82/53 L 02/04/23 06:22 63 13 95 02/04/23 06:15 61 12 94 02/04/23 06:00 61 15 94 02/04/23 05:45 67 31 H 95 02/04/23 05:45 89/59 L 02/04/23 05:30 70 20 02/04/23 05:15 68 16 02/04/23 05:00 71 12 96 02/04/23 04:52 106/74 02/04/23 04:52 72 15 98 02/04/23 04:45 65 5 L 02/04/23 04:45 74/50 L 02/04/23 04:30 68 7 L 98 02/04/23 04:30 85/53 L 02/04/23 04:15 69 9 L 96 02/04/23 04:15 96/63 L 02/04/23 04:00 67 6 L 97 02/04/23 03:48 67 21 97 02/04/23 03:48 82/55 L 02/04/23 03:45 61 16 97 02/04/23 03:45 68/43 L 02/04/23 03:30 64 15 02/04/23 03:30 81/46 L 02/04/23 03:15 71 20 95 02/04/23 03:15 107/75 02/04/23 03:00 75 10 L 96 02/04/23 02:57 106/71 02/04/23 02:57 78 19 95 02/04/23 02:45 79 18 90 02/04/23 02:30 83 15 98 02/04/23 02:15 73 24 90 02/04/23 02:00 74 12 95 02/04/23 01:45 71 21 95 02/04/23 01:30 70 21 95 02/04/23 01:15 75 18 95 02/04/23 01:00 72 8 L 97 02/04/23 00:45 73 21 82 L 02/04/23 00:30 74 15 79 L 02/04/23 00:15 73 21 93 02/04/23 00:00 76 21 86 L 02/03/23 23:45 70 16 84 L 02/03/23 23:30 79 18 93 02/03/23 23:15 82 25 H 96 02/03/23 23:00 103 H 21 78 L 02/03/23 22:59 99 H 24 86 L 02/03/23 22:59 103/64 02/03/23 22:57 104/75 02/03/23 22:57 89 18 94 02/03/23 22:45 84 20 93 02/03/23 22:45 120/77 02/03/23 22:30 84 22 93 02/03/23 22:30 122/82 02/03/23 22:15 81 20 94 02/03/23 22:15 118/81 02/03/23 22:00 79 20 96 02/03/23 22:00 116/77 02/03/23 21:45 76 13 96 02/03/23 21:45 118/80 02/03/23 21:30 74 10 L 95 02/03/23 21:30 114/86 02/03/23 21:15 73 24 95 02/03/23 21:15 110/71 02/03/23 21:00 81 18 94 02/03/23 21:00 119/87 02/03/23 20:45 78 20 95 02/03/23 20:45 123/86 02/03/23 20:30 79 21 94 02/03/23 20:30 118/80 02/03/23 20:15 85 18 94 02/03/23 20:15 117/83 02/03/23 20:00 70 7 L 96 02/04/23 00:00 36.6 C 02/03/23 20:00 36.5 C 02/03/23 22:00 02/04/23 00:28 74 02/04/23 00:45 84 L 02/03/23 18:00 77 12 94 02/03/23 18:00 95/58 L 02/03/23 17:45 94/61 L 02/03/23 17:45 79 14 96 02/03/23 17:16 112/64 02/03/23 17:16 89 15 97 02/03/23 17:00 74 20 90 02/03/23 17:00 87/63 L 02/03/23 16:45 77 18 94 02/03/23 16:45 87/66 L 02/03/23 16:30 81 15 95 02/03/23 16:30 111/78 02/03/23 16:15 70 28 H 96 02/03/23 16:15 107/64 02/03/23 16:00 79 25 H 98 02/03/23 16:00 105/81 02/03/23 15:45 84 24 93 02/03/23 15:30 71 18 97 02/03/23 15:30 108/84 02/03/23 15:15 72 27 H 94 02/03/23 15:15 111/70 02/03/23 15:00 81 15 95 02/03/23 15:00 119/77 02/03/23 14:45 76 13 98 02/03/23 14:45 110/72 02/03/23 14:38 102/77 02/03/23 14:38 70 16 96 02/03/23 14:30 74 20 95 02/03/23 14:15 68 26 H 95 02/03/23 14:15 106/72 02/03/23 14:00 71 17 96 02/03/23 14:00 119/80 02/03/23 13:45 77 17 97 02/03/23 13:45 121/70 02/03/23 13:30 65 28 H 95 02/03/23 13:30 104/60 02/03/23 13:16 118/77 02/03/23 13:16 80 20 95 02/03/23 13:15 80 20 93 02/03/23 13:01 103/64 02/03/23 13:01 71 18 92 02/03/23 13:00 69 22 94 02/03/23 12:45 69 12 97 02/03/23 12:45 117/71 02/03/23 12:30 75 21 94 02/03/23 12:30 110/72 02/03/23 12:15 78 22 94 02/03/23 12:15 94/61 L O2 Del Method O2 Flow Rate 02/04/23 12:02 Nasal Cannula 2 02/04/23 11:54 Nasal Cannula 2 02/04/23 09:30 Room Air 02/04/23 09:15 Room Air 02/04/23 09:15 02/04/23 09:00 02/04/23 08:30 Room Air 02/04/23 08:15 Room Air 02/04/23 08:00 Room Air 02/04/23 07:46 Room Air 02/04/23 07:30 Room Air 02/04/23 09:27 02/04/23 09:21 02/04/23 07:15 02/04/23 07:15 02/04/23 07:00 02/04/23 07:00 02/04/23 06:45 02/04/23 06:45 02/04/23 06:30 02/04/23 06:30 02/04/23 06:23 02/04/23 06:23 02/04/23 06:22 02/04/23 06:22 02/04/23 06:15 02/04/23 06:00 02/04/23 05:45 02/04/23 05:45 02/04/23 05:30 02/04/23 05:15 02/04/23 05:00 02/04/23 04:52 02/04/23 04:52 02/04/23 04:45 02/04/23 04:45 02/04/23 04:30 02/04/23 04:30 02/04/23 04:15 02/04/23 04:15 02/04/23 04:00 02/04/23 03:48 02/04/23 03:48 02/04/23 03:45 02/04/23 03:45 02/04/23 03:30 02/04/23 03:30 02/04/23 03:15 02/04/23 03:15 02/04/23 03:00 02/04/23 02:57 02/04/23 02:57 02/04/23 02:45 02/04/23 02:30 02/04/23 02:15 02/04/23 02:00 02/04/23 01:45 02/04/23 01:30 02/04/23 01:15 02/04/23 01:00 02/04/23 00:45 02/04/23 00:30 02/04/23 00:15 02/04/23 00:00 02/03/23 23:45 02/03/23 23:30 02/03/23 23:15 02/03/23 23:00 02/03/23 22:59 02/03/23 22:59 02/03/23 22:57 02/03/23 22:57 02/03/23 22:45 02/03/23 22:45 02/03/23 22:30 02/03/23 22:30 02/03/23 22:15 02/03/23 22:15 02/03/23 22:00 02/03/23 22:00 02/03/23 21:45 02/03/23 21:45 02/03/23 21:30 02/03/23 21:30 02/03/23 21:15 02/03/23 21:15 02/03/23 21:00 02/03/23 21:00 02/03/23 20:45 02/03/23 20:45 02/03/23 20:30 02/03/23 20:30 02/03/23 20:15 02/03/23 20:15 02/03/23 20:00 02/04/23 00:00 02/03/23 20:00 02/03/23 22:00 Room Air 02/04/23 00:28 02/04/23 00:45 Nasal Cannula 0 02/03/23 18:00 02/03/23 18:00 02/03/23 17:45 02/03/23 17:45 02/03/23 17:16 02/03/23 17:16 02/03/23 17:00 02/03/23 17:00 02/03/23 16:45 02/03/23 16:45 02/03/23 16:30 02/03/23 16:30 02/03/23 16:15 02/03/23 16:15 02/03/23 16:00 02/03/23 16:00 02/03/23 15:45 02/03/23 15:30 02/03/23 15:30 02/03/23 15:15 02/03/23 15:15 02/03/23 15:00 02/03/23 15:00 02/03/23 14:45 02/03/23 14:45 02/03/23 14:38 02/03/23 14:38 02/03/23 14:30 02/03/23 14:15 02/03/23 14:15 02/03/23 14:00 02/03/23 14:00 02/03/23 13:45 02/03/23 13:45 02/03/23 13:30 02/03/23 13:30 02/03/23 13:16 02/03/23 13:16 02/03/23 13:15 02/03/23 13:01 02/03/23 13:01 02/03/23 13:00 02/03/23 12:45 02/03/23 12:45 02/03/23 12:30 02/03/23 12:30 02/03/23 12:15 02/03/23 12:15 Recovery Score Activity: Moves 4 extremities Respiration: Deep Breath/Cough Circulation: +/-20% PreAnes Value Consciousness: Fully Awake Oxygen Saturation: > 92% On Room Air Post Anesthesia Score: 10 Discharge Sedation Level of Care: Fast Track Phase II Post Sedation Plan On clinical assessment, the patient appears to have tolerated the sedation without complications. Patient is recovering as anticipated. Patient will continue to be monitored by nursing and may be discharged when sedation discharge criteria are met per below protocol. Upon Completions of procedure up to 15 minutes continue every 5 minute vital signs and the P.A.R. score; then discharge to a Phase I or Fast Track to Phase II per the following guidelines: * Discharge Patient to appropriate Phase II area if PAR is 8 or greater or return to pre- procedure baseline. The post - procedure orders will be as directed. * If PAR score is less than 8 or not return to pre-procedure baseline then patient will follow Phase I monitoring till PAR is reached for Phase II. The Phase I may be done in procedure room or may call to secure a Phase I area. * If naloxone or flumazenil are used for reversal, hold in Phase I for continued monitoring from when last reversal dose was given for a minimum of 60 minutes or longer pending the nurse and/or physician discretion of patient condition before discharge to Phase II. Please call the Sedation Physician to re-evaluate and complete post-note for discharge to Phase II area. Do NOT discharge from procedure sedation or Phase 1 until post- sedation eval uation note is complete by procedure /sedation MD Sedation Discharge Instructions to be given to the patient at discharge to home. [facility] [place] Procedure Codes (Charges) Indication for Procedure Indication for procedure: NSTEMI Cardiomyopathy Sedation/Anesthesia Procedure 1: Sedation/Anesthesia: 78674 Mod Sedation by the same physician;Init15 Min Child Age 5 & Up (Initial 15-minute) Total Sedation Time (minutes): 33 Procedure 2: Sedation/Anesthesia: 14163 Mod Sedation by the same physician; Ea [id number] Minutes (Additional 18 min) Total Sedation Time (minutes): 33
[2023-02-04] MEDS: PANTOprazole 40 MG TAB PO SCH (14:13)
--- NOTE | 2023-02-04 14:35 | Hospitalist Progress Note ---
Date of Service February 04, 2023 Assessment & Plan (1) NSTEMI (non-ST elevated myocardial infarction): Plan: Echo with evidence of severe wall motion abnormalities in the inferior wall, inferolateral wall, anterolateral wall, base and mid anterior wall. Treated with heparin gtt. heart catheterization today, February 04, reveals 2 obstructed saphenous vein graft. The LARIOS to the LAD is patent. Medical management recommended. Amiodarone will be discontinued per cardiology recommendation. We will transfer out of the ICU today. (2) PAT (paroxysmal atrial tachycardia): Plan: Now in sinus rhythm on EKG. earlier this admission he had nonsustained SVT vs. PAT w/ aberrancy. S/p DC cardioversion x1 @ 150J overnight due to sustained HR 150s and unstable, with successful return to sinus rhythm and post-procedure EKG without ST elevations/depressions. Treated with amiodarone which will be discontinued today, February 04 (3) HFrEF (heart failure with reduced ejection fraction): Plan: Echocardiogram 02/01/23 with mildly dilated LV with severely reduced EF 25-30%. No evidence of CHF exacerbation. Entresto and Coreg were held while he required vasopressor support. They have since been restarted. He is now off vasopressor support. (4) Acute dyspnea: Plan: Due to NSTEMI. Now resolved. (5) Diabetes mellitus type II, uncontrolled: Plan: Liberalized A1c goal due to age and comorbidities. Intolerant of metformin, SGLT2. 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 Hold home regimen in favor of basal/bolus insulin and SSI coverage (6) Dementia: Plan: Supportive care. 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 (7) Gastroesophageal reflux disease: Plan: Stable. PPI therapy (8) Monoclonal B-cell lymphocytosis: Plan: Stable. No acute intervention necessary at this time (9) Lumbar spinal stenosis: Plan: Managed by pain management. Continue bupivacaine/morphine/clonidine pump (10) Hypertension: Plan: Medications temporarily held while on vasopressor support. Subsequently restarted. 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 Currently with Issa catheter in place (13) Cardiogenic shock: Plan: Resolved. He is now off vasopressor support. He underwent cardioversion due to suspected PAT with hypotension on the evening of February 02. Amiodarone has been discontinued. Telemetry Plan Medical management of cardiac disease. OT and PT assessments ordered. Hopefu lly he will be able to be discharged to home soon. Admission and Anticipated Discharge Date Admission Date: February 01, 2023 Subjective Are occluded but the LARIOS graft to the LAD remains patent. Case discussed with cardiology. Medical management from this point forward. He is stable for transfer out of the ICU today. Review of Systems Review of Systems: Constitutional-no fever or chills ENT-no blurred vision, no double vision, no epistaxis, no sore throat Respiratory-no cough, no wheezing, no shortness of breath Cardiac-no palpitations, no chest pain, no syncope GI-no nausea, vomiting, diarrhea, melena, hematochezia -no urinary retention, no urinary incontinence, no dysuria, no hematuria Musculoskeletal-no joint pain, no muscle tenderness Skin-no bruising, no rashes, no pruritus Neuro-no isolated weakness, no paresthesia, no weakness Psych-no depression, no anxiety Physical Exam Physical Exam: General-alert and oriented x3, no fevers, no chills HEENT-head atraumatic and normocephalic, pupils equal and reactive to light, extraocular muscles intact Neck-no lymphadenopathy or thyromegaly, trachea midline Chest-clear to auscultation percussion. No rales wheezing or rhonchi Cardiac-regular rate and rhythm, normal S1 and S2 Abdomen-normal bowel sounds, nontender, no hepatosplenomegaly Extremities-no cyanosis, clubbing, or edema Neuro-cranial nerves II through XII intact, motor and sensory function within normal limits, strength symmetrical , no focal deficits Psych-normal affect, normal mood Results & Data Results & Data Vital Signs (Past 12 Hours) Vital Signs Temp Pulse Pulse Resp BP BP Pulse Ox 02/04/23 12:00 36.4 C L 02/04/23 12:02 70 16 112/77 94 02/04/23 11:54 70 16 125/94 94 02/04/23 09:30 75 15 118/84 94 02/04/23 09:15 79 18 94 02/04/23 09:15 132/89 02/04/23 09:00 75 21 115/73 94 02/04/23 08:30 69 18 102/74 95 02/04/23 08:15 75 16 114/79 94 02/04/23 08:00 77 16 110/79 94 02/04/23 07:46 78 17 112/80 97 02/04/23 07:30 71 14 116/80 92 02/04/23 09:27 36.6 C 02/04/23 09:21 74 02/04/23 07:15 77 20 93 02/04/23 07:15 117/83 02/04/23 07:00 76 17 94 02/04/23 07:00 121/84 02/04/23 06:45 78 17 98 02/04/23 06:45 114/80 02/04/23 06:30 80 20 92 02/04/23 06:30 92/64 L 02/04/23 06:23 95/64 L 02/04/23 06:23 71 14 96 02/04/23 06:22 82/53 L 02/04/23 06:22 63 13 95 02/04/23 06:15 61 12 94 02/04/23 06:00 61 15 94 02/04/23 05:45 67 31 H 95 02/04/23 05:45 89/59 L 02/04/23 05:30 70 20 02/04/23 05:15 68 16 02/04/23 05:00 71 12 96 02/04/23 04:52 106/74 02/04/23 04:52 72 15 98 02/04/23 04:45 65 5 L 02/04/23 04:45 74/50 L 02/04/23 04:30 68 7 L 98 02/04/23 04:30 85/53 L 02/04/23 04:15 69 9 L 96 02/04/23 04:15 96/63 L 02/04/23 04:00 67 6 L 97 02/04/23 03:48 67 21 97 02/04/23 03:48 82/55 L 02/04/23 03:45 61 16 97 02/04/23 03:45 68/43 L 02/04/23 03:30 64 15 02/04/23 03:30 81/46 L 02/04/23 03:15 71 20 95 02/04/23 03:15 107/75 02/04/23 03:00 75 10 L 96 02/04/23 02:57 106/71 02/04/23 02:57 78 19 95 05/15/23 02:45 79 18 90 02/04/23 02:30 83 15 98 O2 Del Method O2 Flow Rate 02/04/23 12:00 02/04/23 12:02 Nasal Cannula 2 02/04/23 11:54 Nasal Cannula 2 02/04/23 09:30 Room Air 02/04/23 09:15 Room Air 02/04/23 09:15 02/04/23 09:00 02/04/23 08:30 Room Air 02/04/23 08:15 Room Air 02/04/23 08:00 Room Air 02/04/23 07:46 Room Air 02/04/23 07:30 Room Air 02/04/23 09:27 02/04/23 09:21 02/04/23 07:15 02/04/23 07:15 02/04/23 07:00 02/04/23 07:00 02/04/23 06:45 02/04/23 06:45 02/04/23 06:30 02/04/23 06:30 02/04/23 06:23 02/04/23 06:23 02/04/23 06:22 02/04/23 06:22 02/04/23 06:15 02/04/23 06:00 02/04/23 05:45 02/04/23 05:45 02/04/23 05:30 02/04/23 05:15 02/04/23 05:00 02/04/23 04:52 02/04/23 04:52 02/04/23 04:45 02/04/23 04:45 02/04/23 04:30 02/04/23 04:30 02/04/23 04:15 02/04/23 04:15 02/04/23 04:00 02/04/23 03:48 02/04/23 03:48 02/04/23 03:45 02/04/23 03:45 02/04/23 03:30 02/04/23 03:30 02/04/23 03:15 02/04/23 03:15 02/04/23 03:00 02/04/23 02:57 02/04/23 02:57 02/04/23 02:45 02/04/23 02:30 Laboratory Results 02/04/23 04:17 02/04/23 04:17 PG Care Time/CCT Total # of Minutes Spent Total Time Spent with Patient: Total time spent is greater than 50% in coordination of care (as documented) at patient's floor/unit and/or counseling patient: Coding Level of Care Code 21084 SUB INP/OBS CARE 3/50MIN Diagnoses NSTEMI (non-ST elevated myocardial infarction) I21.4 PAT (paroxysmal atrial tachycardia) I47.1 HFrEF (heart failure with reduced ejection fraction) I50.20 Acute dyspnea R06.00 Diabetes mellitus type II, uncontrolled E11.65 Glycemic state: with hyperglycemia Dementia F03.90 Dementia type: unspecified type Dementia behavioral disturbance: without behavioral disturbance Gastroesophageal reflux disease K21.9 Esophagitis presence: esophagitis presence not specified Monoclonal B-cell lymphocytosis D72.820 Lumbar spinal stenosis M48.061 Neurogenic claudication status: unspecified Hypertension I10 Diarrhea R19.7 BPH with urinary obstruction N40.1; N13.8 Cardiogenic shock R57.0 (5) Diabetes mellitus type II, uncontrolled Glycemic state: with hyperglycemia Qualified Code(s): E11.65 - Type 2 diabetes mellitus with hyperglycemia (6) Dementia Dementia type: unspecified type Dementia behavioral disturbance: without behavioral disturbance Qualified Code(s): F03.90 - Unspecified dementia without behavioral disturbance (7) Gastroesophageal reflux disease Esophagitis presence: esophagitis presence not specified Qualified Code(s): K21.9 - Gastro-esophageal reflux disease without esophagitis (9) Lumbar spinal stenosis Neurogenic claudication status: unspecified Qualified Code(s): M48.061 - Spinal stenosis, lumbar region without neurogenic claudication
[2023-02-04] MEDS: POLYETHYLENE (MIRALAX) 17 GM PACK PO SCH (14:37)
[2023-02-04] MEDS: DOCUSATE SODIUM/SENNA 50/8.6MG TAB PO SCH ×2 (14:39→21:10)
[2023-02-04] MEDS ORDERED: PSYLLIUM or GUAR GUM FIBER POWDER PACKET PO PRN (16:26)
--- NOTE | 2023-02-04 17:12 | Electrocardiogram Report ---
Test Reason : Blood Pressure : / mmHG Vent. Rate : 072 BPM Atrial Rate : 072 BPM P-R Int : 218 ms QRS Dur : 104 ms QT Int : 496 ms P-R-T Axes : 028 -22 097 degrees QTc Int : 543 ms Sinus rhythm with 1st degree A-V block Prolonged QT Abnormal ECG When compared with ECG of 02-FEB-2023 20:45, QT has lengthened Confirmed by Willi Dumont ([id number]) on 02/04/2023 5:12:15 PM Referred By: REFERRED SELF Confirmed By:Leoncio Dumont
[2023-02-04] MEDS: predniSONE 20 MG TAB PO SCH (17:23)
[2023-02-04] MEDS: carvediloL 6.25 MG TAB PO SCH (20:09)
[2023-02-04] MEDS: MAGNESIUM OXIDE 400 MG TAB PO SCH (21:09)
[2023-02-04] MEDS: LATANOPROST 0.005% OP SOLN 2.5 ML BTL OP SCH (21:10)
[2023-02-04] MEDS: LANTUS PER UNIT CHARGE SQ SCH (21:16)
[2023-02-04] MEDS: VALSARTAN/SACUBITRIL 26/24MG TAB PO SCH (21:20)
[2023-02-04] MEDS: ZOLPIDEM TARTRATE 5 MG TAB PO SCH (21:40)
[2023-02-05] MEDS: ACETAMINOPHEN 325 MG TAB PO PRN (02:59)
[2023-02-05 05:20] LABS: Basophils # (auto) 0.05 K/uL (0-0.2); Basophils % (auto) 0.4 %; Hematocrit (blood only) 35.3 % (42.0-52.0); Hemoglobin 11.6 g/dl (14.0-18.0); Immature Granulocytes # (auto) 0.07 K/uL (0.01-0.20); Immature Granulocytes % (auto) 0.5 %; Lymphocytes # (auto) 3.45 K/uL (1.2-3.4); Mean Corpuscular Hgb Conc 32.9 g/dL (32.0-36.0); Mean Corpuscular Volume 97.2 fL (80.0-100.0); Monocytes # (auto) 0.25 K/uL (0.11-0.59); Neutrophils # (auto) 8.97 K/uL (1.40-6.50); Neutrophils % (auto) 70.1 %; Platelet Count 233 K/uL (130-400); RDW Standard Deviation 46.5 fL (36.4-46.3); Red Blood Count 3.63 M/uL (4.70-6.10); White Blood Count 12.79 K/ul (4.8-10.8)
[2023-02-05 05:30] LABS: BUN Creatinine Ratio 17.8 (10-20); Calcium 8.2 mg/dl (8.6-10.3); Creatinine Clr Calc Pharmacy 37.4 ml/min; Est GFR (African American) 47.1 ml/min; Est GFR (Non-African American) 40.6 ml/min; Potassium 4.8 mmol/L (3.5-5.1)
[2023-02-05] MEDS: carvediloL 6.25 MG TAB PO SCH ×2 (08:36→16:40)
[2023-02-05] MEDS: ASPIRIN 81 MG ECTAB PO SCH (08:37)
[2023-02-05] MEDS: VALSARTAN/SACUBITRIL 26/24MG TAB PO SCH ×2 (08:38→20:35)
[2023-02-05] MEDS: LACTOBACILLUS ACIDOPHILUS 1 GM PACK PO SCH (08:38)
[2023-02-05] MEDS: PANTOprazole 40 MG TAB PO SCH (08:38)
[2023-02-05] MEDS: DOCUSATE SODIUM/SENNA 50/8.6MG TAB PO SCH ×2 (08:45→20:41)
[2023-02-05] MEDS: POLYETHYLENE (MIRALAX) 17 GM PACK PO SCH (08:45)
[2023-02-05] MEDS: INSULIN ASPART PER UNIT CHARGE SC SCH ×4 (08:45→20:42)
[2023-02-05] MEDS: LANTUS PER UNIT CHARGE SQ SCH ×2 (08:46→20:41)
[2023-02-05] MEDS ORDERED: PANTOprazole 40 MG TAB PO SCH (09:00)
[2023-02-05] MEDS: predniSONE 20 MG TAB PO SCH (09:17)
--- NOTE | 2023-02-05 10:04 | Cardiology Progress Note ---
Date of Service February 05, 2023 Assessment & Plan (1) CAD (coronary artery disease): Plan: -severe [place] vessel disease. -patent LARIOS to the distal LAD. -occluded SVG to the LCx. -occluded SVG to the RCA. -medical management. (2) Cardiomyopathy: Plan: -LVEF reduced at 25-30% with multiple wall motion abnormalities. -likely ischemic in origin. -continue Entresto and carvedilol. -we will enroll in the CHF program. (3) Hypercholesterolemia: Plan: -intolerant to statins and Zetia. (4) PAT (paroxysmal atrial tachycardia): Plan: -dysrhythmia earlier in the admission not well tolerated and required cardioversion. -would resume amiodarone 200 mg daily. Admission and Anticipated Discharge Date Admission Date: February 01, 2023 Subjective The patient is resting comfortably in bed without complaints of chest pain dyspnea. We reviewed his cardiac catheterization results. Physical Exam Physical Exam: In general this is an obese white male in no acute distress. HEENT exam is negative. Neck reveals normal carotid upstrokes without bruits. No jugular venous distention. There is no thyromegaly. Cardiovascular exam reveals a regular rhythm with a normal S1 and S2. A prominent S4 is noted. There are no murmurs. Lungs are clear without rales, rhonchi, or wheezes. Abdomen is soft without bruits. Extremities reveal intact radial artery and posterior tibial pulses bilaterally. There is trace peripheral edema. 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 PG Care Time/CCT Total # of Minutes Spent Total Time Spent with Patient: Total time spent is greater than 50% in coordination of care (as documented) at patient's floor/unit and/or counseling patient: Coding Level of Care Code 13135 SUB INP/OBS CARE 3/50MIN Diagnoses CAD (coronary artery disease) I25.10 Coronary Disease-Associated Artery/Lesion type: [place] artery [place] vs. transplanted heart: [place] heart Associated angina: without angina Cardiomyopathy I42.9 Hypercholesterolemia E78.00 PAT (paroxysmal atrial tachycardia) I47.1 (1) CAD (coronary artery disease) Coronary Disease-Associated Artery/Lesion type: [place] artery [place] vs. transplanted heart: [place] heart Associated angina: without angina Qualified Code(s): I25.10 - Atherosclerotic heart disease of [place] coronary artery without angina pectoris
[2023-02-05] MEDS: glipiZIDE ER 2.5 MG TABCR PO SCH ×2 (10:06→16:41)
[2023-02-05] MEDS: AMIODARONE 200 MG TAB PO SCH (11:46)
--- NOTE | 2023-02-05 14:46 | Hospitalist Progress Note ---
Date of Service February 05, 2023 Assessment & Plan (1) NSTEMI (non-ST elevated myocardial infarction): Plan: Echo with evidence of severe wall motion abnormalities in the inferior wall, inferolateral wall, anterolateral wall, base and mid anterior wall. Treated with heparin gtt. Heart catheterization completed on February 04 revealed 2 obstructed saphenous vein grafts. The LARIOS to the LAD is patent. Medical management recommended. Amiodarone has been restarted today, February 05, per cardiology recommendations. (2) PAT (paroxysmal atrial tachycardia): Plan: Now in sinus rhythm on EKG. Earlier this admission he had nonsustained SVT vs. PAT w/ aberrancy. S/p DC cardioversion x1 @ 150J overnight due to sustained HR 150s and unstable, with successful return to sinus rhythm. Post-procedure EKG without ST elevations/depressions. Amiodarone restarted today, February 05, per cardiology recommendations (3) HFrEF (heart failure with reduced ejection fraction): Plan: Echocardiogram 02/01/23 with mildly dilated LV with severely reduced EF 25-30%. No evidence of CHF exacerbation. Entresto and Coreg were held while he required vasopressor support. They have since been restarted. He is now off vasopressor support. (4) Acute dyspnea: Plan: Due to NSTEMI. Now resolved. (5) Diabetes mellitus type II, uncontrolled: Plan: Liberalized A1c goal due to age and comorbidities. Intolerant of metformin, SGLT2. 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 This has been restarted today, February 05. (6) Dementia: Plan: Supportive care. 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 (7) Gastroesophageal reflux disease: Plan: Stable. PPI therapy (8) Monoclonal B-cell lymphocytosis: Plan: Stable. No acute intervention necessary at this time (9) Lumbar spinal stenosis: Plan: Managed by pain management. Continue bupivacaine/morphine/clonidine pump. Ruddy coleman discussed with pain management today, February 05. His pain pump is usually refilled on an outpatient basis by [facility]. (10) Hypertension: Plan: Medications temporarily held while on vasopressor support. Subsequently restarted. 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 Currently with Issa catheter in place (13) Cardiogenic shock: Plan: Resolved. He is now off vasopressor support. He underwent cardioversion due to suspected PAT with hypotension on the evening of February 02. Amiodarone has been restarted today, February 05. Telemetry Plan Medical management of cardiac disease. Physical therapy recommends SNF placement. Occupational Therapy recommendations pending Admission and Anticipated Discharge Date Admission Date: February 01, 2023 Subjective No new problems. Glipizide has been restarted along with amiodarone per cardiology recommendations. Physical therapy recommends SNF placement. Case discussed with pain management who states that the pain pump is usually refilled on an outpatient basis by [facility]. Review of Systems Review of Systems: Constitutional-no fever or chills ENT-no blurred vision, no double vision, no epistaxis, no sore throat Respiratory-no cough, no wheezing, no shortness of breath Cardiac-no palpitations, no chest pain, no syncope GI-no nausea, vomiting, diarrhea, melena, hematochezia -no urinary retention, no urinary incontinence, no dysuria, no hematuria Musculoskeletal-no joint pain, no muscle tenderness Skin-no bruising, no rashes, no pruritus Neuro-no isolated weakness, no paresthesia, no weakness Psych-no depression, no anxiety Physical Exam Physical Exam: General-alert and oriented x3, no fevers, no chills HEENT-head atraumatic and normocephalic, pupils equal and reactive to light, extraocular muscles intact Neck-no lymphadenopathy or thyromegaly, trachea midline Chest-clear to auscultation percussion. No rales wheezing or rhonchi Cardiac-regular rate and rhythm, normal S1 and S2 Abdomen-normal bowel sounds, nontender, no hepatosplenomegaly Extremities-no cyanosis, clubbing, or edema Neuro-cranial nerves II through XII intact, motor and sensory function within normal limits, strength symmetrical , no focal deficits Psych-normal affect, normal mood Results & Data Results & Data Vital Signs (Past 12 Hours) Vital Signs Temp Pulse Pulse Resp BP BP Pulse Ox 02/05/23 09:00 99/58 L 02/05/23 08:00 36.9 C 78 14 91/58 L 91 02/05/23 06:30 70 16 103/55 L 97 02/05/23 06:00 78 16 97 O2 Del Method 02/05/23 09:00 02/05/23 08:00 Room Air 02/05/23 06:30 Room Air 02/05/23 06:00 Laboratory Results 02/05/23 04:56 02/05/23 04:56 PG Care Time/CCT Total # of Minutes Spent Total Time Spent with Patient: Total time spent is greater than 50% in coordination of care (as documented) at patient's floor/unit and/or counseling patient: Coding Level of Care Code 29331 SUB INP/OBS CARE 3/50MIN Diagnoses NSTEMI (non-ST elevated myocardial infarction) I21.4 PAT (paroxysmal atrial tachycardia) I47.1 HFrEF (heart failure with reduced ejection fraction) I50.20 Acute dyspnea R06.00 Diabetes mellitus type II, uncontrolled E11.65 Glycemic state: with hyperglycemia Dementia F03.90 Dementia type: unspecified type Dementia behavioral disturbance: without behavioral disturbance Gastroesophageal reflux disease K21.9 Esophagitis presence: esophagitis presence not specified Monoclonal B-cell lymphocytosis D72.820 Lumbar spinal stenosis M48.061 Neurogenic claudication status: unspecified Hypertension I10 Diarrhea R19.7 BPH with urinary obstruction N40.1; N13.8 Cardiogenic shock R57.0 (5) Diabetes mellitus type II, uncontrolled Glycemic state: with hyperglycemia Qualified Code(s): E11.65 - Type 2 diabetes mellitus with hyperglycemia (6) Dementia Dementia type: unspecified type Dementia behavioral disturbance: without behavioral disturbance Qualified Code(s): F03.90 - Unspecified dementia without behavioral disturbance (7) Gastroesophageal reflux disease Esophagitis presence: esophagitis presence not specified Qualified Code(s): K21.9 - Gastro-esophageal reflux disease without esophagitis (9) Lumbar spinal stenosis Neurogenic claudication status: unspecified Qualified Code(s): M48.061 - Spinal stenosis, lumbar region without neurogenic claudication
[2023-02-05] MEDS: LATANOPROST 0.005% OP SOLN 2.5 ML BTL OP SCH (20:36)
[2023-02-05] MEDS: MAGNESIUM OXIDE 400 MG TAB PO SCH (20:41)
[2023-02-05] MEDS: ZOLPIDEM TARTRATE 5 MG TAB PO SCH (20:41)
[2023-02-06 06:14] LABS: Hemoglobin 12.1 g/dl (14.0-18.0); Mean Corpuscular Hemoglobin 31.9 pg (25.0-34.0); Mean Corpuscular Hgb Conc 32.7 g/dL (32.0-36.0); Mean Corpuscular Volume 97.6 fL (80.0-100.0); Mean Platelet Volume 11.8 fL (9.4-12.4); Platelet Count 262 K/uL (130-400); RDW Coefficient of Variation 13.1 % (11.5-14.5); RDW Standard Deviation 46.5 fL (36.4-46.3); Red Blood Count 3.79 M/uL (4.70-6.10); White Blood Count 21.46 K/ul (4.8-10.8)
[2023-02-06 06:27] LABS: Calcium 8.8 mg/dl (8.6-10.3); Creatinine Clr Calc Pharmacy 34.6 ml/min; Est GFR (African American) 42.9 ml/min; Potassium 4.7 mmol/L (3.5-5.1)
[2023-02-06 06:34] LABS: Basophils # (auto) 0.09 K/uL (0-0.2); Basophils % (auto) 0.4 %; Echinocytes 1+; Eosinophils # (auto) 0.03 K/uL (0-0.50); Eosinophils % (auto) 0.1 %; Immature Granulocytes # (auto) 0.13 K/uL (0.01-0.20); Immature Granulocytes % (auto) 0.6 %; Lymphocytes # (auto) 5.83 K/uL (1.2-3.4); Lymphocytes % (auto) 27.2 %; Monocytes # (auto) 1.24 K/uL (0.11-0.59); Monocytes % (auto) 5.8 %; Neutrophils # (auto) 14.14 K/uL (1.40-6.50); Neutrophils % (auto) 65.9 %
[2023-02-06] MEDS: carvediloL 6.25 MG TAB PO SCH ×2 (08:01→16:41)
[2023-02-06] MEDS: AMIODARONE 200 MG TAB PO SCH (08:01)
[2023-02-06] MEDS: glipiZIDE ER 2.5 MG TABCR PO SCH ×2 (08:01→16:41)
[2023-02-06] MEDS: ASPIRIN 81 MG ECTAB PO SCH (08:01)
[2023-02-06] MEDS: predniSONE 20 MG TAB PO SCH (08:02)
[2023-02-06] MEDS: PANTOprazole 40 MG TAB PO SCH (08:02)
[2023-02-06] MEDS: LACTOBACILLUS ACIDOPHILUS 1 GM PACK PO SCH (08:02)
[2023-02-06] MEDS: VALSARTAN/SACUBITRIL 26/24MG TAB PO SCH ×2 (08:02→20:36)
[2023-02-06] MEDS: DOCUSATE SODIUM/SENNA 50/8.6MG TAB PO SCH ×2 (08:08→20:41)
[2023-02-06] MEDS: INSULIN ASPART PER UNIT CHARGE SC SCH ×4 (08:08→20:43)
[2023-02-06] MEDS: POLYETHYLENE (MIRALAX) 17 GM PACK PO SCH (08:09)
[2023-02-06] MEDS: LANTUS PER UNIT CHARGE SQ SCH ×2 (08:09→20:43)
--- NOTE | 2023-02-06 09:45 | XRay Report ---
XR chest 1V portable HISTORY: 87 years-old Male leukocytosis, hypoxia acute leukocytosis with hypoxia COMPARISON: Chest radiograph 02/02/2023 TECHNIQUE: AP view the chest FINDINGS: Cardiac silhouette is enlarged. Prior median sternotomy with CABG. No pneumothorax, large pleural eff usion or overt pulmonary edema. Unchanged right hemidiaphragm elevation. Mildly progressive bibasilar densities. Asymmetric right hilar prominence is unchanged. Degenerative changes of the shoulders and spine. IMPRESSION: 1. Cardiomegaly without overt pulmonary edema. 2. Unchanged right hemidiaphragmatic elevation. 3. There are new mild bibasilar opacities which may represent atelectasis versus an infectious or inf lammatory pneumonitis. ACT 112: Negative or not required by law. The above report was generated using voice recognition software. It may contain grammatical, syntax o r spelling errors. Electronically signed by: Sergio Cagle M.D. 02/06/2023 9:44 AM
[2023-02-06] MEDS: ACETAMINOPHEN 325 MG TAB PO PRN (12:46)
--- NOTE | 2023-02-06 13:53 | Hospitalist Progress Note ---
Date of Service February 06, 2023 Assessment & Plan (1) NSTEMI (non-ST elevated myocardial infarction): Plan: Echo with evidence of severe wall motion abnormalities in the inferior wall, inferolateral wall, anterolateral wall, base and mid anterior wall. Treated with heparin gtt. Heart catheterization completed on February 04 revealed 2 obstructed saphenous vein grafts. The LARIOS to the LAD is patent. Medical management recommended. Amiodarone has been restarted on February 05, per cardiology recommendations. (2) PAT (paroxysmal atrial tachycardia): Plan: Now in sinus rhythm on EKG. Earlier this admission he had nonsustained SVT vs. PAT w/ aberrancy. S/p DC cardioversion x1 @ 150J overnight due to sustained HR 150s and unstable, with successful return to sinus rhythm. Post-procedure EKG without ST elevations/depressions. Amiodarone restarted on February 05, per cardiology recommendations (3) HFrEF (heart failure with reduced ejection fraction): Plan: Echocardiogram 02/01/23 with mildly dilated LV with severely reduced EF 25-30%. No evidence of CHF exacerbation. Entresto and Coreg were held while he required vasopressor support. They have since been restarted. He is now off vasopressor support. (4) Acute dyspnea: Plan: Due to NSTEMI. Now resolved. (5) Diabetes mellitus type II, uncontrolled: Plan: Liberalized A1c goal due to age and comorbidities. Intolerant of metformin, SGLT2. 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 (6) Dementia: Plan: Supportive care. 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 (7) Gastroesophageal reflux disease: Plan: Stable. PPI therapy (8) Monoclonal B-cell lymphocytosis: Plan: Stable. No acute intervention necessary at this time (9) Lumbar spinal stenosis: Plan: Managed by pain management. Continue bupivacaine/morphine/clonidine pump. Pain management consulted so they can refill the pain pump while he is still hospitalized. His pain pump is usually refilled on an outpatient basis by [facility]. (10) Hypertension: Plan: Medications were temporarily held while on vasopressor support. Subsequently restarted. 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 Currently with Issa catheter in place (13) Cardiogenic shock: Plan: Resolved. He is now off vasopressor support. He underwent cardioversion due to suspected PAT with hypotension on the evening of February 02. Amiodarone has been restarted on February 05. Telemetry Plan Medical management of cardiac disease. Occupational Therapy and physical therapy recommends SNF placement. The patient refuses to consider this. Anti cipate eventual discharge to his previous living situation with his , hopefully tomorrow but possibly Saturday, depending on when his pain pump gets refilled Admission and Anticipated Discharge Date Admission Date: February 01, 2023 Subjective Stable overall. No new problems. He flatly refuses to consider SNF placement. I spoke to his , Rosanne, by phone. I consulted pain management so they can refill the pain pump reservoir while he is hospitalized. He then will be discharged to home. Review of Systems Review of Systems: Constitutional-no fever or chills ENT-no blurred vision, no double vision, no epistaxis, no sore throat Respiratory-no cough, no wheezing, no shortness of breath Cardiac-no palpitations, no chest pain, no syncope GI-no nausea, vomiting, diarrhea, melena, hematochezia -no urinary retention, no urinary incontinence, no dysuria, no hematuria Musculoskeletal-no joint pain, no muscle tenderness Skin-no bruising, no rashes, no pruritus Neuro-no isolated weakness, no paresthesia, no weakness Psych-no depression, no anxiety Physical Exam Physical Exam: General-alert and oriented x3, no fevers, no chills HEENT-head atraumatic and normocephalic, pupils equal and reactive to light, extraocular muscles intact Neck-no lymphadenopathy or thyromegaly, trachea midline Chest-clear to auscultation percussion. No rales wheezing or rhonchi Cardiac-regular rate and rhythm, normal S1 and S2 Abdomen-normal bowel sounds, nontender, no hepatosplenomegaly Extremities-no cyanosis, clubbing, or edema Neuro-cranial nerves II through XII intact, motor and sensory function within normal limits, strength symmetrical , no focal deficits Psych-normal affect, normal mood Results & Data Results & Data Vital Signs (Past 12 Hours) Vital Signs Temp Pulse Pulse Resp BP BP Pulse Ox 02/06/23 11:20 36.4 C L 65 13 98/67 L 95 02/06/23 07:32 36.5 C 82 10 L 108/60 90 02/06/23 02:30 88 22 02/06/23 02:28 88 25 H 93 02/06/23 02:27 36.8 C 134/80 02/06/23 02:27 88 19 O2 Del Method 02/06/23 11:20 Room Air 02/06/23 07:32 Room Air 02/06/23 02:30 02/06/23 02:28 Room Air 02/06/23 02:27 02/06/23 02:27 PG Care Time/CCT Total # of Minutes Spent Total Time Spent with Patient: Total time spent is greater than 50% in coordination of care (as documented) at patient's floor/unit and/or counseling patient: Coding Level of Care Code 16892 SUB INP/OBS CARE 3/50MIN Diagnoses NSTEMI (non-ST elevated myocardial infarction) I21.4 PAT (paroxysmal atrial tachycardia) I47.1 HFrEF (heart failure with reduced ejection fraction) I50.20 Acute dyspnea R06.00 Diabetes mellitus type II, uncontrolled E11.65 Glycemic state: with hyperglycemia Dementia F03.90 Dementia type: unspecified type Dementia behavioral disturbance: without behavioral disturbance Gastroesophageal reflux disease K21.9 Esophagitis presence: esophagitis presence not specified Monoclonal B-cell lymphocytosis D72.820 Lumbar spinal stenosis M48.061 Neurogenic claudication status: unspecified Hypertension I10 Diarrhea R19.7 BPH with urinary obstruction N40.1; N13.8 Cardiogenic shock R57.0 (5) Diabetes mellitus type II, uncontrolled Glycemic state: with hyperglycemia Qualified Code(s): E11.65 - Type 2 diabetes mellitus with hyperglycemia (6) Dementia Dementia type: unspecified type Dementia behavioral disturbance: without behavioral disturbance Qualified Code(s): F03.90 - Unspecified dementia without behavioral disturbance (7) Gastroesophageal reflux disease Esophagitis presence: esophagitis presence not specified Qualified Code(s): K21.9 - Gastro-esophageal reflux disease without esophagitis (9) Lumbar spinal stenosis Neurogenic claudication status: unspecified Qualified Code(s): M48.061 - Spinal stenosis, lumbar region without neurogenic claudication
[2023-02-06] MEDS: oxyCODONE HCL IR 5 MG TAB (IMMEDIATE RELEASE) PO PRN ×2 (16:40→23:18)
[2023-02-06] MEDS: MAGNESIUM OXIDE 400 MG TAB PO SCH (20:36)
[2023-02-06] MEDS: LATANOPROST 0.005% OP SOLN 2.5 ML BTL OP SCH (20:36)
[2023-02-06] MEDS: ZOLPIDEM TARTRATE 5 MG TAB PO SCH (20:41)
[2023-02-06 22:11] LABS: Appearance Urine Clear (Clear); Bacteria Urine Automated Negative (Negative); Bilirubin Urine Negative (Negative); Blood Urine 2+ (Negative); Color Urine Yellow; Epithelial Cell Urine Auto >30 /lpf (0-5); Glucose Urine UA Negative (Negative); Ketones Urine Negative (Negative); Leukocyte Esterase Urine Negative (Negative); Nitrite Urine Negative (Negative); Protein Urine Trace (Negative); Specific Gravity Urine 1.025 (1.000-1.030); Urobilinogen Urine Negative (Negative)
[2023-02-06 22:26] LABS: Mucus Urine Present (None Prsent)
[2023-02-06 22:29] LABS: Uric Acid Crystals Urine Present (None Prsent)
[2023-02-06 22:30] LABS: Amorphous Sediment Urine Present (None Prsent)
[2023-02-07] MEDS: oxyCODONE HCL IR 5 MG TAB (IMMEDIATE RELEASE) PO PRN (05:30)
[2023-02-07 05:53] LABS: Hematocrit (blood only) 38.4 % (42.0-52.0); Hemoglobin 12.4 g/dl (14.0-18.0); Mean Corpuscular Hemoglobin 31.5 pg (25.0-34.0); Mean Corpuscular Hgb Conc 32.3 g/dL (32.0-36.0); Mean Corpuscular Volume 97.5 fL (80.0-100.0); Mean Platelet Volume 11.6 fL (9.4-12.4); Platelet Count 305 K/uL (130-400); RDW Coefficient of Variation 13.2 % (11.5-14.5); RDW Standard Deviation 47.1 fL (36.4-46.3); Red Blood Count 3.94 M/uL (4.70-6.10); White Blood Count 23.16 K/ul (4.8-10.8)
[2023-02-07 06:03] LABS: BUN Creatinine Ratio 24.7 (10-20); Calcium 8.2 mg/dl (8.6-10.3); Creatinine Clr Calc Pharmacy 36.9 ml/min; Est GFR (African American) 46.3 ml/min; Potassium 4.7 mmol/L (3.5-5.1)
[2023-02-07 06:19] LABS: Basophils # (auto) 0.09 K/uL (0-0.2); Basophils % (auto) 0.4 %; Eosinophils # (auto) 0.19 K/uL (0-0.50); Eosinophils % (auto) 0.8 %; Immature Granulocytes # (auto) 0.19 K/uL (0.01-0.20); Immature Granulocytes % (auto) 0.8 %; Lymphocytes # (auto) 7.04 K/uL (1.2-3.4); Lymphocytes % (auto) 30.4 %; Monocytes # (auto) 1.59 K/uL (0.11-0.59); Monocytes % (auto) 6.9 %; Neutrophils # (auto) 14.06 K/uL (1.40-6.50); Neutrophils % (auto) 60.7 %
[2023-02-07] MEDS: AMIODARONE 200 MG TAB PO SCH (07:46)
[2023-02-07] MEDS: carvediloL 6.25 MG TAB PO SCH ×2 (07:46→16:39)
[2023-02-07] MEDS: glipiZIDE ER 2.5 MG TABCR PO SCH ×2 (07:46→16:39)
[2023-02-07] MEDS: ASPIRIN 81 MG ECTAB PO SCH (07:47)
[2023-02-07] MEDS: PANTOprazole 40 MG TAB PO SCH (07:47)
[2023-02-07] MEDS: LACTOBACILLUS ACIDOPHILUS 1 GM PACK PO SCH (07:47)
[2023-02-07] MEDS: POLYETHYLENE (MIRALAX) 17 GM PACK PO SCH (07:48)
[2023-02-07] MEDS: predniSONE 20 MG TAB PO SCH (07:49)
[2023-02-07] MEDS: VALSARTAN/SACUBITRIL 26/24MG TAB PO SCH ×2 (07:49→20:43)
[2023-02-07] MEDS: DOCUSATE SODIUM/SENNA 50/8.6MG TAB PO SCH ×2 (07:49→20:50)
[2023-02-07] MEDS: LANTUS PER UNIT CHARGE SQ SCH ×2 (08:08→20:52)
[2023-02-07] MEDS: INSULIN ASPART PER UNIT CHARGE SC SCH ×4 (08:08→20:51)
--- NOTE | 2023-02-07 08:40 | Pain Management Consultation ---
Date of Consultation February 07, 2023 Assessment & Plan (1) Postlaminectomy syndrome of lumbosacral region: (2) Presence of intrathecal pump: (3) Chronic intractable pain: (4) CAD (coronary artery disease): Associated angina: without angina Coronary Disease-Associated Artery/Lesion type: curyung artery Ram[place] vs. transplanted heart: curyung heart Qualified Code(s): I25.10 - Atherosclerotic heart disease of curyung coronary artery without angina pectoris (5) Monoclonal B-cell lymphocytosis: Plan 1. Due to the patient's inpatient admission and soon to be low reservoir volume it has been recommended that he undergo refilling of his intrathecal pump during this admission. His medications have been ordered urgently and will be overnighted to pain clinic hopefully later today. Will plan to refill his intrathecal pump either later today 02/07/2023 or tomorrow 02/08/2023. Patient will then resume refilling of his intrathecal pump in the outpatient setting with [facility]. This will be communicated to [facility]. 2. Ongoing medical management per hospitalist service Intrathecal pump was interrogated at today's visit. Patient is currently receiving morphine 3.308 mg/day, clonidine 154.40 mcg/day and bupivacaine 0.4411 mg/day. Patient with low reservoir alarm date of 02/10/2023 prior to refill. Patient with MARSHAL of February 2024. INTRATHECAL PUMP REFILL AND REPROGRAM PROCEDURE Procedure performed by: Annalee Mukherjee RN. Procedure supervised by: Wyatt Quiroga PA-C. Pump site: Left lower quadrant. Pump size: 20 cc. Medication: Morphine 15 mg/mL, clonidine 700 mcg/mL and bupivacaine 2.0 mg/mL. Daily dose: Morphine 3.308 mg/day, clonidine 154.4 mcg/day and bupivacaine 0.4411 mg/day. MARSHAL: February 2024. The patient was brought to the procedure room and placed in supine position. Immediately prior to starting the procedure, a ``time out was conducted with the staff and the patient where the patient was identified, proposed procedure was verified, consent was reviewed and the proper site for the planned procedure was identified. On examination, no signs of skin breakdown or infection were noted at the injection site. The site was cleansed with DuraPrep followed by Betadine. After the application of either chloraprep, duraprep, and/or betadine (depending on patient's allergy status), three minutes time elapsed prior to the start of the procedure to reduce risk of fire. Sterile drapes were applied. Using the template and 22 gauge, 1.5 inch non-coring Joel needle pump reservoir was accessed uneventfully. 3.9 mL of the remaining medication for pump was removed and discarded. This volume was compared to the calculated volume of 2.8 mL. Pump was then refilled with medications as documented above. Bacteriostatic filter and constant negative pressure was maintained throughout the refill. Needle was withdrawn. Hemostasis noted. Band-Aid was applied. Pump was reprogrammed as documented above. Patient was given a printout and discharge instructions. Patient voiced understanding. Procedure was completed while inpatient at [facility]. Thank you for allowing us to participate in the care of Mr. Wiggins History of Present Illness Reason for Consultation: Management of intrathecal pain pump Requesting Physician: Alejandro Frank MD Attending Physician: Alejandro Sanderson MD History of Present Illness Mr. Wiggins is an 87-year-old white male who is well-known to the [facility] pain service due to his history of chronic intractable low back pain and lower extremity pain secondary to lumbar postlaminectomy syndrome which has required implantation of intrathecal pump and catheter delivery system. Patient's intrathecal pump is currently managed by our office but refilled routinely by [facility] in the outpatient setting. The patient undergoes evaluation in the office 1 time per year for ongoing monitoring and management. Patient was recently admitted due to CAD with non-STEMI WI who underwent cardiac catheterization. Medical management has been recommended. Patient's intrathecal alarm for low reservoir volume is 02/10/2023. Due to the concern about discharge and the ability to undergo refilling of the pump pain service has been consulted for consideration of refilling of his intrathecal pump during his admission. Patient is indicating that his pain is adequately controlled with his current intrathecal dose and desires no change. Patient reports his low back pain ranges between a 2-4/10. He denies any pain in the left lower quadrant at the site of the intrathecal pump. He denies change in location or characteristic of his chronic pain complaints which is predominantly axial at 80% with a 20% radicular component. Patient reports his pain is minimal in the sitting position. His pain escalates with standing and walking. He denies any recent falls or injuries. He has no bowel or bladder incontinence. Patient has no further constitution complaints. Plan of care discussed with Dr. Di Del Rio. Pain Assessment Full Body Front + Back: 1. Axial lumbosacral pain Pain scale - at its best (0-10): 2 Pain scale - at its worst (0-10): 4 Allergies Allergy/AdvReac Type Severity Reaction Status Date / Time hydrochlorothiazide Allergy Severe Hives Verified 01/29/23 13:57 Iodinated Contrast Media Allergy Severe Convulsions Verified 01/29/23 13:57 adhesive Allergy Intermediate RASH;PULLS Verified 01/29/23 13:57 SKIN OFF levofloxacin Allergy Mild HIVES, Verified 01/29/23 13:57 PRURITIS NSAIDS (Non-Steroidal Allergy Mild Elevated BP Verified 01/29/23 13:57 Anti-Inflamma amiodarone Allergy Unknown RASH Verified 01/29/23 13:57 cephalexin Allergy Unknown AFTER 14 Verified 01/29/23 13:57 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 Tybfdjz-YFU-SzQ Reductase Allergy Unknown Unknown Verified 01/29/23 13:57 Inhibitor [Gsmxatx-Hbb-Cla Reductase Inhibitor] terazosin [From Hytrin] Allergy Unknown Unknown Verified 01/29/23 13:57 doxycycline AdvReac Severe Severe Verified 01/29/23 13:57 stomach pain, headaches Cephalosporins AdvReac Intermediate nausea Verified 01/29/23 13:57 after repeated dose nifedipine AdvReac Intermediate Sick to Verified 01/29/23 13:57 stomach atorvastatin AdvReac Unknown MUSCLE Verified 01/29/23 13:57 ACHES ezetimibe AdvReac stomach Verified 01/29/23 13:57 upset, leg/back pain solifenacin AdvReac urinary Verified 01/29/23 13:57 retention Home Medications Medication Instructions Recorded Confirmed Type bupivacaine HCl 0.25 % (2.5 mg/mL) See Rx Instructions .Route 05/18/19 02/01/23 Rx injection solution .COMPLEX #50 mL guaifenesin 600 mg tablet, 600 mg PO DAILY 01/12/22 02/01/23 History extended release 12 hr (Mucinex) aspirin 81 mg tablet,delayed 81 mg PO DAILY #90 tabs 07/13/22 02/01/23 Rx release (Enteric Coated Aspirin) wheat dextrin 3 gram/3.5 gram oral 1.5 g PO BID PRN .. 07/13/22 02/01/23 History powder packet (Benefiber Clear Sugar Free(dextrin)) glipizide 5 mg tablet, extended 5 mg PO BID #180 tabs 01/16/23 02/01/23 Rx release 24 hr losartan 25 mg tablet 25 mg PO DAILY #180 tabs 01/29/23 02/01/23 Rx prednisone 20 mg tablet 20 mg PO DAILY #5 tabs 01/29/23 02/01/23 Rx Bifidobacterium infantis 4 mg 4 mg PO DAILY 02/01/23 02/01/23 History capsule (Align) magnesium oxide 400 mg PO QPM 02/01/23 02/01/23 History pantoprazole 40 mg tablet,delayed 40 mg PO DAILY 02/01/23 02/01/23 History release (Protonix) zolpidem 5 mg tablet (Ambien) 5 mg PO HS 02/01/23 02/01/23 History Pain History Pain Intensity Pain scale - at its best (0-10): 2 Pain scale - at its worst (0-10): 4 Patient History Medical History (Updated 02/07/23 @ 08:49 by Wyatt Quiorga PA-C) Acute and chronic respiratory failure with hypoxia Cataracts, bilateral Falls Glaucoma History of heart attack History of skin cancer Incisional hernia Lumbar postlaminectomy syndrome Lung nodule Monoclonal B-cell lymphocytosis Postlaminectomy syndrome of lumbosacral region Right lower lobe pneumonia Statin intolerance Tinnitus of both ears Umbilical hernia 2006 Urinary retention Surgical History H/O umbilical hernia repair History of appendectomy 1947 History of back surgery x4 laminectomy 1984; AL Fusion L5-S1 1988; L4, L5 S1 [id number]; History of carpal tunnel surgery History of cataract surgery S/P CABG x 3 S/P triple vessel bypass 2001 Status post left foot surgery Status post right partial knee replacement partial 2005 Surgery, elective Neurol drug infusion implantation of programmable pump 2010 Family History Mother Stroke Coronary heart disease Hypertension Osteoarthritis Rheumatoid arthritis Heart disease Myocardial infarction Father Coronary heart disease Heart disease Sister Familial tremor Grandfather Heart disease Uncle Heart disease Other Family history non-contributory Denies family history of Ovarian cancer Prostate cancer Diabetes Breast cancer Lung cancer Colorectal cancer Social History Smoking Status: Former smoker Tobacco Type: Cigarettes Second Hand Exposure: No; Do You Dip or Chew Tobacco: No; Hx Alcohol Use: Yes Alcohol type: wine Alcohol Intake Frequency: Monthly or Less Hx Substance Use: No Preferred Language: Slovak Communication Ability: Effective Visual Impairment: Limited Hearing Ability: Normal 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 Patient in no acute distress. Speech and thought process appropriate. Mood and affect appropriate. Patient experiencing some difficulty with memory recall. Cognition intact. Head: Normocephalic and atraumatic. ENT: No evidence of nasal or oral mucosal lesions. Mucous membranes are moist. Eyes: Pupils equal round reactive to light. Neck: Supple without adenopathy and full range of motion. Chest: Nontender to palpation of the costosternal junction. Abdomen: Soft and nondistended. No organomegaly. Bowel sounds active. Intrathecal pump located in left lower quadrant. Pump is now mobile and nontender to palpation. Back/spine: Complete loss of lumbar lordosis with well-healed midline surgical incision. Minimal generalized tenderness over the lumbosacral region which is nonfocal to the midline, facet or SI joint region. Minimally tender in the paravertebral and gluteal musculature. No appreciable spasm or myoneural trigger points. Lower extremities: SLR negative bilaterally slight increase in axial pain. Strength testing 4+/5 throughout without focal deficit. Neurologic: Cranial nerves grossly intact. Ambulatory function not witnessed.
[2023-02-07] MEDS ORDERED: AMOXICILLIN/CLAVULANATE 875 MG TAB PO ONE (09:30)
--- NOTE | 2023-02-07 15:53 | Hospitalist Progress Note ---
Date of Service February 07, 2023 Assessment & Plan (1) NSTEMI (non-ST elevated myocardial infarction): Plan: Echo with evidence of severe wall motion abnormalities in the inferior wall, inferolateral wall, anterolateral wall, base and mid anterior wall. Treated with heparin gtt. Heart catheterization completed on February 04 revealed 2 obstructed saphenous vein grafts. The LARIOS to the LAD is patent. Medical management recommended. Amiodarone has been restarted on February 05, per cardiology recommendations. (2) PAT (paroxysmal atrial tachycardia): Plan: Now in sinus rhythm on EKG. Earlier this admission he had nonsustained SVT vs. PAT w/ aberrancy. S/p DC cardioversion x1 @ 150J overnight due to sustained HR 150s and unstable, with successful return to sinus rhythm. Post-procedure EKG without ST elevations/depressions. Amiodarone restarted on February 05, per cardiology recommendations (3) HFrEF (heart failure with reduced ejection fraction): Plan: Echocardiogram 02/01/23 with mildly dilated LV with severely reduced EF 25-30%. No evidence of CHF exacerbation. Entresto and Coreg were held while he required vasopressor support. They have since been restarted. He is now off vasopressor support. (4) Acute dyspnea: Plan: Due to NSTEMI. Now resolved. (5) Diabetes mellitus type II, uncontrolled: Plan: Liberalized A1c goal due to age and comorbidities. Intolerant of metformin, SGLT2. 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 (6) Dementia: Plan: Supportive care. 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 (7) Gastroesophageal reflux disease: Plan: Stable. PPI therapy (8) Monoclonal B-cell lymphocytosis: Plan: Stable. No acute intervention necessary at this time (9) Lumbar spinal stenosis: Plan: Managed by pain management. Continue bupivacaine/morphine/clonidine pump. Pain management consulted so they could refill the pump which was accomplished today, February 08. His pain pump is usually refilled on an outpatient basis by [facility]. (10) Hypertension: Plan: Medications were temporarily held while on vasopressor support. Subsequently restarted. 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 Currently with Issa catheter in place (13) Cardiogenic shock: Plan: Resolved. He is now off vasopressor support. He underwent cardioversion due to suspected PAT with hypotension on the evening of February 02. Amiodarone has been restarted on February 05. Telemetry Plan Hopeful discharge to [facility] tomorrow, February 08 Admission and Anticipated Discharge Date Admission Date: February 01, 2023 Subjective Alert and oriented. No acute problems. He had his pain pump refilled today, February 07. is at the bedside. Multiple questions answered. He has been started on Augmentin due to the opacities noted on chest CT scan. Hopeful discharge to [facility] tomorrow, February 08 Review of Systems Review of Systems: Constitutional-no fever or chills ENT-no blurred vision, no double vision, no epistaxis, no sore throat Respiratory-no cough, no wheezing, no shortness of breath Cardiac-no palpitations, no chest pain, no syncope GI-no nausea, vomiting, diarrhea, melena, hematochezia -no urinary retention, no urinary incontinence, no dysuria, no hematuria Musculoskeletal-no joint pain, no muscle tenderness Skin-no bruising, no rashes, no pruritus Neuro-no isolated weakness, no paresthesia, no weakness Psych-no depression, no anxiety Physical Exam Physical Exam: General-alert and oriented x3, no fevers, no chills HEENT-head atraumatic and normocephalic, pupils equal and reactive to light, extraocular muscles intact Neck-no lymphadenopathy or thyromegaly, trachea midline Chest-clear to auscultation percussion. No rales wheezing or rhonchi Cardiac-regular rate and rhythm, normal S1 and S2 Abdomen-normal bowel sounds, nontender, no hepatosplenomegaly Extremities-no cyanosis, clubbing, or edema Neuro-cranial nerves II through XII intact, motor and sensory function within normal limits, strength symmetrical , no focal deficits Psych-normal affect, normal mood Results & Data Results & Data Vital Signs (Past 12 Hours) Vital Signs Temp Pulse Resp BP Pulse Ox O2 Del Method 02/07/23 11:31 36.9 C 80 18 103/74 93 Room Air 02/07/23 08:00 Room Air 02/07/23 08:00 36.6 C 80 18 90/62 L 94 Room Air Laboratory Results 02/07/23 05:30 02/07/23 05:30 PG Care Time/CCT Total # of Minutes Spent Total Time Spent with Patient: Total time spent is greater than 50% in coordination of care (as documented) at patient's floor/unit and/or counseling patient: Coding Level of Care Code 92043 SUB INP/OBS CARE 3/50MIN Diagnoses NSTEMI (non-ST elevated myocardial infarction) I21.4 PAT (paroxysmal atrial tachycardia) I47.1 HFrEF (heart failure with reduced ejection fraction) I50.20 Acute dyspnea R06.00 Diabetes mellitus type II, uncontrolled E11.65 Glycemic state: with hyperglycemia Dementia F03.90 Dementia type: unspecified type Dementia behavioral disturbance: without behavioral disturbance Gastroesophageal reflux disease K21.9 Esophagitis presence: esophagitis presence not specified Monoclonal B-cell lymphocytosis D72.820 Lumbar spinal stenosis M48.061 Neurogenic claudication status: unspecified Hypertension I10 Diarrhea R19.7 BPH with urinary obstruction N40.1; N13.8 Cardiogenic shock R57.0 (5) Diabetes mellitus type II, uncontrolled Glycemic state: with hyperglycemia Qualified Code(s): E11.65 - Type 2 diabetes mellitus with hyperglycemia (6) Dementia Dementia type: unspecified type Dementia behavioral disturbance: without behavioral disturbance Qualified Code(s): F03.90 - Unspecified dementia without behavioral disturbance (7) Gastroesophageal reflux disease Esophagitis presence: esophagitis presence not specified Qualified Code(s): K21.9 - Gastro-esophageal reflux disease without esophagitis (9) Lumbar spinal stenosis Neurogenic claudication status: unspecified Qualified Code(s): M48.061 - Spinal stenosis, lumbar region without neurogenic claudication
[2023-02-07] MEDS: AMOXICILLIN/CLAVULANATE 875 MG TAB PO SCH (16:39)
[2023-02-07] MEDS: MAGNESIUM OXIDE 400 MG TAB PO SCH (20:43)
[2023-02-07] MEDS: LATANOPROST 0.005% OP SOLN 2.5 ML BTL OP SCH (20:44)
[2023-02-07] MEDS: ZOLPIDEM TARTRATE 5 MG TAB PO SCH (21:35)
[2023-02-08] MEDS: ACETAMINOPHEN 325 MG TAB PO PRN ×3 (01:38→13:48)
[2023-02-08] MEDS: oxyCODONE HCL IR 5 MG TAB (IMMEDIATE RELEASE) PO PRN ×2 (02:36→15:00)
[2023-02-08 06:32] LABS: Hematocrit (blood only) 39.2 % (42.0-52.0); Hemoglobin 12.8 g/dl (14.0-18.0); Mean Corpuscular Hemoglobin 31.5 pg (25.0-34.0); Mean Corpuscular Hgb Conc 32.7 g/dL (32.0-36.0); Mean Corpuscular Volume 96.6 fL (80.0-100.0); Mean Platelet Volume 11.7 fL (9.4-12.4); Platelet Count 307 K/uL (130-400); RDW Coefficient of Variation 13.2 % (11.5-14.5); Red Blood Count 4.06 M/uL (4.70-6.10); White Blood Count 25.53 K/ul (4.8-10.8)
[2023-02-08 06:41] LABS: BUN Creatinine Ratio 22.9 (10-20); Calcium 8.8 mg/dl (8.6-10.3); Creatinine Clr Calc Pharmacy 37.4 ml/min; Est GFR (African American) 46.7 ml/min; Est GFR (Non-African American) 40.3 ml/min; Potassium 4.6 mmol/L (3.5-5.1)
[2023-02-08 07:53] LABS: Basophils % (auto) 0.4 %; Eosinophils # (auto) 0.23 K/uL (0-0.50); Eosinophils % (auto) 0.9 %; Immature Granulocytes # (auto) 0.23 K/uL (0.01-0.20); Immature Granulocytes % (auto) 0.9 %; Lymphocytes # (auto) 7.85 K/uL (1.2-3.4); Lymphocytes % (auto) 30.7 %; Monocytes % (auto) 6.3 %; Neutrophils # (auto) 15.52 K/uL (1.40-6.50); Neutrophils % (auto) 60.8 %
[2023-02-08] MEDS: predniSONE 20 MG TAB PO SCH (10:28)
[2023-02-08] MEDS: PANTOprazole 40 MG TAB PO SCH (10:28)
[2023-02-08] MEDS: ASPIRIN 81 MG ECTAB PO SCH (10:28)
[2023-02-08] MEDS: glipiZIDE ER 2.5 MG TABCR PO SCH ×2 (10:28→17:16)
[2023-02-08] MEDS: AMIODARONE 200 MG TAB PO SCH (10:28)
[2023-02-08] MEDS: carvediloL 6.25 MG TAB PO SCH ×2 (10:28→17:17)
[2023-02-08] MEDS: VALSARTAN/SACUBITRIL 26/24MG TAB PO SCH ×2 (10:28→20:09)
[2023-02-08] MEDS: AMOXICILLIN/CLAVULANATE 875 MG TAB PO SCH ×2 (10:28→17:16)
[2023-02-08] MEDS: LANTUS PER UNIT CHARGE SQ SCH ×2 (10:29→20:23)
[2023-02-08] MEDS: LACTOBACILLUS ACIDOPHILUS 1 GM PACK PO SCH (10:29)
[2023-02-08] MEDS: DOCUSATE SODIUM/SENNA 50/8.6MG TAB PO SCH ×2 (10:30→20:07)
[2023-02-08] MEDS: INSULIN ASPART PER UNIT CHARGE SC SCH ×4 (10:39→20:23)
[2023-02-08] MEDS: POLYETHYLENE (MIRALAX) 17 GM PACK PO SCH (10:39)
--- NOTE | 2023-02-08 12:20 | Hospitalist Progress Note ---
Date of Service February 08, 2023 Assessment & Plan (1) NSTEMI (non-ST elevated myocardial infarction): Plan: Echo with evidence of severe wall motion abnormalities in the inferior wall, inferolateral wall, anterolateral wall, base and mid anterior wall. Treated with heparin gtt. Heart catheterization completed on February 04 revealed 2 obstructed saphenous vein grafts. The LARIOS to the LAD is patent. Medical management recommended. Amiodarone has been restarted on February 05, per cardiology recommendations. (2) PAT (paroxysmal atrial tachycardia): Plan: Now in sinus rhythm on EKG. Earlier this admission he had nonsustained SVT vs. PAT w/ aberrancy. S/p DC cardioversion x1 @ 150J overnight due to sustained HR 150s and unstable, with successful return to sinus rhythm. Post-procedure EKG without ST elevations/depressions. Amiodarone restarted on February 05, per cardiology recommendations (3) HFrEF (heart failure with reduced ejection fraction): Plan: Echocardiogram 02/01/23 with mildly dilated LV with severely reduced EF 25-30%. No evidence of CHF exacerbation. Entresto and Coreg were held while he required vasopressor support. They have since been restarted. He is now off vasopressor support. (4) Acute dyspnea: Plan: Due to NSTEMI. Now resolved. (5) Diabetes mellitus type II, uncontrolled: Plan: Liberalized A1c goal due to age and comorbidities. Intolerant of metformin, SGLT2. On glipizide twice daily [employer]. 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 (6) Dementia: Plan: Supportive care. 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 (7) Gastroesophageal reflux disease: Plan: Stable. PPI therapy (8) Monoclonal B-cell lymphocytosis: Plan: Stable. No acute intervention necessary at this time (9) Lumbar spinal stenosis: Plan: Managed by pain management. Continue bupivacaine/morphine/clonidine pump. Pain management consulted so they could refill the pump which was accomplished today, February 08. His pain pump is usually refilled on an outpatient basis by [facility]. (10) Hypertension: Plan: Medications were temporarily held while on vasopressor support. Subsequently restarted. 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 Currently with Issa catheter in place (13) Cardiogenic shock: Plan: Resolved. He is now off vasopressor support. He underwent cardioversion due to suspected PAT with hypotension on the evening of February 02. Amiodarone has been restarted on February 05. Telemetry Plan Hopeful discharge to [facility] today, February 08 Admission and Anticipated Discharge Date Admission Date: February 01, 2023 Subjective Alert and oriented. He states he is tired because he did not sleep well last night. He is on room air. Blood pressure 98/69 this morning. He is now on Augmentin due to leukocytosis but no overt pneumonia. His pain pump was refilled yesterday, February 07 Review of Systems Review of Systems: Constitutional-no fever or chills ENT-no blurred vision, no double vision, no epistaxis, no sore throat Respiratory-no cough, no wheezing, no shortness of breath Cardiac-no palpitations, no chest pain, no syncope GI-no nausea, vomiting, diarrhea, melena, hematochezia -no urinary retention, no urinary incontinence, no dysuria, no hematuria Musculoskeletal-no joint pain, no muscle tenderness Skin-no bruising, no rashes, no pruritus Neuro-no isolated weakness, no paresthesia, no weakness Psych-no depression, no anxiety Physical Exam Physical Exam: General-alert and oriented x3, no fevers, no chills HEENT-head atraumatic and normocephalic, pupils equal and reactive to light, extraocular muscles intact Neck-no lymphadenopathy or thyromegaly, trachea midline Chest-clear to auscultation percussion. No rales wheezing or rhonchi Cardiac-regular rate and rhythm, normal S1 and S2 Abdomen-normal bowel sounds, nontender, no hepatosplenomegaly Extremities-no cyanosis, clubbing, or edema Neuro-cranial nerves II through XII intact, motor and sensory function within normal limits, strength symmetrical , no focal deficits Psych-normal affect, normal mood Results & Data Results & Data Vital Signs (Past 12 Hours) Vital Signs Temp Pulse Pulse Resp BP Pulse Ox O2 Del Method 02/08/23 11:04 36.5 C 73 16 98/69 L 95 Room Air 02/08/23 08:00 36.5 C 76 16 98/69 L 95 Room Air 02/08/23 02:42 36.7 C 73 22 114/74 93 Room Air Laboratory Results 02/08/23 05:16 02/08/23 05:16 PG Care Time/CCT Total # of Minutes Spent Total Time Spent with Patient: Total time spent is greater than 50% in coordination of care (as documented) at patient's floor/unit and/or counseling patient: Coding Level of Care Code 41646 SUB INP/OBS CARE 2/35MIN Diagnoses NSTEMI (non-ST elevated myocardial infarction) I21.4 PAT (paroxysmal atrial tachycardia) I47.1 HFrEF (heart failure with reduced ejection fraction) I50.20 Acute dyspnea R06.00 Diabetes mellitus type II, uncontrolled E11.65 Glycemic state: with hyperglycemia Dementia F03.90 Dementia type: unspecified type Dementia behavioral disturbance: without behavioral disturbance Gastroesophageal reflux disease K21.9 Esophagitis presence: esophagitis presence not specified Monoclonal B-cell lymphocytosis D72.820 Lumbar spinal stenosis M48.061 Neurogenic claudication status: unspecified Hypertension I10 Diarrhea R19.7 BPH with urinary obstruction N40.1; N13.8 Cardiogenic shock R57.0 (5) Diabetes mellitus type II, uncontrolled Glycemic state: with hyperglycemia Qualified Code(s): E11.65 - Type 2 diabetes mellitus with hyperglycemia (6) Dementia Dementia type: unspecified type Dementia behavioral disturbance: without behavioral disturbance Qualified Code(s): F03.90 - Unspecified dementia without behavioral disturbance (7) Gastroesophageal reflux disease Esophagitis presence: esophagitis presence not specified Qualified Code(s): K21.9 - Gastro-esophageal reflux disease without esophagitis (9) Lumbar spinal stenosis Neurogenic claudication status: unspecified Qualified Code(s): M48.061 - Spinal stenosis, lumbar region without neurogenic claudication
[2023-02-08] MEDS: LATANOPROST 0.005% OP SOLN 2.5 ML BTL OP SCH (20:07)
[2023-02-08] MEDS: MAGNESIUM OXIDE 400 MG TAB PO SCH (20:08)
[2023-02-08] MEDS: ZOLPIDEM TARTRATE 5 MG TAB PO SCH (20:09)
[2023-02-08] MEDS: traMADol HCL 50 MG TABLET PO PRN (20:09)
[2023-02-09] MEDS: traMADol HCL 50 MG TABLET PO PRN ×2 (01:04→07:31)
[2023-02-09] MEDS: ACETAMINOPHEN 325 MG TAB PO PRN ×2 (02:15→09:19)
[2023-02-09] MEDS: AMOXICILLIN/CLAVULANATE 875 MG TAB PO SCH (07:32)
[2023-02-09] MEDS: VALSARTAN/SACUBITRIL 26/24MG TAB PO SCH (07:32)
[2023-02-09] MEDS: PANTOprazole 40 MG TAB PO SCH (07:32)
[2023-02-09] MEDS: glipiZIDE ER 2.5 MG TABCR PO SCH (07:32)
[2023-02-09] MEDS: predniSONE 20 MG TAB PO SCH (07:32)
[2023-02-09] MEDS: carvediloL 6.25 MG TAB PO SCH (07:32)
[2023-02-09] MEDS: ASPIRIN 81 MG ECTAB PO SCH (07:32)
[2023-02-09] MEDS: AMIODARONE 200 MG TAB PO SCH (07:33)
[2023-02-09] MEDS: DOCUSATE SODIUM/SENNA 50/8.6MG TAB PO SCH (07:33)
[2023-02-09] MEDS: LACTOBACILLUS ACIDOPHILUS 1 GM PACK PO SCH (07:34)
[2023-02-09] MEDS: POLYETHYLENE (MIRALAX) 17 GM PACK PO SCH (07:34)
[2023-02-09] MEDS: INSULIN ASPART PER UNIT CHARGE SC SCH (08:29)
[2023-02-09] MEDS: LANTUS PER UNIT CHARGE SQ SCH (08:30)
[2023-02-09] MEDS ORDERED: SOD PHOSPHATE/SOD BIPHOSPHATE ENEMA 132 ML BTL PR STA (09:46)
--- NOTE | 2023-02-09 09:53 | Discharge Summary ---
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 He saw his PCP on 01/29/23 for cough and was placed on prednisone for 3 days. 3 to 4 days of sinus congestion, light yellow productive cough, progressive fatigue acutely worsened 2 days ago. and other home residents with viral illness. Was placed on prednisone 3 days ago 20 mg daily. [place] [id number], losartan was decreased from 25 mg twice daily to daily as outpatient. Seen in the ER today. Limited historian. Reports coughing spells for 4-5 days, placed on prednisone, no improvement. Prednisone made him feel worse hasn't taken it in a day or two. Woke up this morning and felt much more weak than normal, poor energy and came to ER. Feels more winded walking around. Denies orthopnea, able to lay flat. Sleeping poorly since Saturday. No leg swelling. Oriented to year, place, name. Took medications this morning, BP meds recently decreased. BP 114/91. Cough improved last 2 days +constipation, no BM in 3 days. NO recent hematochezia/melena No nausea/vomiting. Eating and drinking normally No night sweats Lives in [facility]. 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 No history of afib or aflutter. No blood thinners. No history of stents. Denies hx of seizure or contrast allergy. Per 3 days ago had a fall, no injuries and didn't lose conciousness but felt tired. Is not sure if he tripped, pt and think he turned and slipped due to LE neuropathy 2/2 DM and lumbar stenosis. NO recent fevers, chills. notes his BP has been 140s with O2 level >94 at home but patient may have seemd 'a ltitle warm to the touch' in the last day or two. No recent anginal sx per patient or his . Medical History: Reviewed Medications: Reviewed Surgical History: Reviewed Family history: Reviewed Allergies: Reviewed Social History: No tobacco/etoh Code Status:DNR/DNI Principal Diagnosis Non-ST elevation NM, cardiogenic shock, paroxysmal atrial tachycardia, possible pneumonia Discharge Exam General-alert and oriented x3, no fevers, no chills HEENT-head atraumatic and normocephalic, pupils equal and reactive to light, extraocular muscles intact Neck-no lymphadenopathy or thyromegaly, trachea midline Chest-clear to auscultation percussion. No rales wheezing or rhonchi Cardiac-regular rate and rhythm, normal S1 and S2 Abdomen-normal bowel sounds, nontender, no hepatosplenomegaly Extremities-no cyanosis, clubbing, or edema Neuro-cranial nerves II through XII intact, motor and sensory function within normal limits, strength symmetrical , no focal deficits Psych-normal affect, normal mood Discharge Data Allergies Allergy/AdvReac Type Severity Reaction Status Date / Time hydrochlorothiazide Allergy Severe Hives Verified 01/29/23 13:57 Iodinated Contrast Media Allergy Severe Convulsions Verified 01/29/23 13:57 adhesive Allergy Intermediate RASH;PULLS Verified 01/29/23 13:57 SKIN OFF levofloxacin Allergy Mild HIVES, Verified 01/29/23 13:57 PRURITIS NSAIDS (Non-Steroidal Allergy Mild Elevated BP Verified 01/29/23 13:57 Anti-Inflamma amiodarone Allergy Unknown RASH Verified 01/29/23 13:57 cephalexin Allergy Unknown AFTER 14 Verified 01/29/23 13:57 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 Ssuqiyh-HKP-AyV Reductase Allergy Unknown Unknown Verified 01/29/23 13:57 Inhibitor [Narddhb-Pgc-Fap Reductase Inhibitor] terazosin [From Hytrin] Allergy Unknown Unknown Verified 01/29/23 13:57 doxycycline AdvReac Severe Severe Verified 01/29/23 13:57 stomach pain, headaches Cephalosporins AdvReac Intermediate nausea Verified 01/29/23 13:57 after repeated dose nifedipine AdvReac Intermediate Sick to Verified 01/29/23 13:57 stomach atorvastatin AdvReac Unknown MUSCLE Verified 01/29/23 13:57 ACHES ezetimibe AdvReac stomach Verified 01/29/23 13:57 upset, leg/back pain solifenacin AdvReac urinary Verified 01/29/23 13:57 retention Consultations 02/01/23 19:49 Consult Cardiology Routine 02/06/23 09:39 Consult Pain Management Routine Procedures Performed Operation Date: 02/04/23 10:00 Actual Procedures p Cineradiography w/Routine Exam - Cuco Kohler MD, PhD s Injection / Imaging Aorta - Cuco Kohler MD, PhD p Cath, Cors with Grafts (no LV) - Cuco Kohler MD, PhD s Ultrasound Vascular Access - Cuco Kohler MD, PhD Ordered Studies 02/04/23 10:00 CL Cath Imgs for PACS use only Routine Hospital Course (1) NSTEMI (non-ST elevated myocardial infarction): Echo with evidence of severe wall motion abnormalities in the inferior wall, inferolateral wall, anterolateral wall, base and mid anterior wall. Treated with heparin gtt. Heart catheterization completed on February 04 revealed 2 obstructed saphenous vein grafts. The LARIOS to the LAD is patent. Medical management recommended. Amiodarone has been restarted on February 05, per cardiology recommendations. (2) PAT (paroxysmal atrial tachycardia): Now in sinus rhythm on EKG. Earlier this admission he had nonsustained SVT vs. PAT w/ aberrancy. S/p DC cardioversion x1 @ 150J overnight due to sustained HR 150s and unstable, with successful return to sinus rhythm. Post-procedure EKG without ST elevations/depressions. Amiodarone restarted on February 05, per cardiology recommendations (3) HFrEF (heart failure with reduced ejection fraction): Echocardiogram 02/01/23 with mildly dilated LV with severely reduced EF 25-30%. No evidence of CHF exacerbation. Entresto and Coreg were held while he required vasopressor support. They have since been restarted. He is now off vasopressor support. (4) Acute dyspnea: Due to NSTEMI. Now resolved. (5) Diabetes mellitus type II, uncontrolled: Liberalized A1c goal due to age and comorbidities. Intolerant of metformin, SGLT2. 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 (6) Dementia: Supportive care. 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 (7) Gastroesophageal reflux disease: Stable. PPI therapy (8) Monoclonal B-cell lymphocytosis: Stable. No acute intervention necessary at this time (9) Lumbar spinal stenosis: Managed by pain management. Continue bupivacaine/morphine/clonidine pump. Pain management consulted so they could refill the pump which was accomplished on February 08. His pain pump is usually refilled on an outpatient basis by [facility]. (10) Hypertension: Medications were temporarily held while on vasopressor support. Subsequently restarted. (11) Diarrhea: Continue bowel regimen. He states he is now constipated. 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 Currently with Issa catheter in place (13) Cardiogenic shock: Resolved. He is now off vasopressor support. He underwent cardioversion due to suspected PAT with hypotension on the evening of February 02. Amiodarone has been restarted on February 05. Telemetry Plan Plan discharge to [facility] today, February 09 Total Time Total Time Spent Total Time Spent (In Minutes): 45 minutes Discharge Plan Discharge Items Patient Disposition: Transfer Shelter Fac Reason For Visit: NSTEMI, COUGH, EXCERTIONAL DYSPNEA Discharge Diagnosis: Non-ST elevation NM, cardiogenic shock, paroxysmal atrial tachycardia, suspected pneumonia Activity: Resume your previous activity Non-emergency contact: Primary Care Provider Call non-emergency contact if: you have any medication questions Follow-up/Referrals: Sissy Sandhu MD [Primary Care Provider] - Di Peng PA-C [Physician Supervisor Joiners] - 02/11/23 10:30 am (Congestive Heart Failure Program Appointment Information Early follow up is essential to managing your heart failure. An appointment has been scheduled for you with the [facility] Heart [facility] within 7 days of discharge. Anticipate this visit to be 30-60 minutes long. Please expect a felt hat pouncing operator hand phone call from one of our nurses approximately 48 hours from discharge. They will also be placing an order for lab work to be completed 1-2 days prior to your heart failure follow up appointment. Please be sure to have this done so we can go over the results when you come in. Office Location The cardiology office building is located in front of the hospital at [address] Bring the following with you to your follow-up doctor appointments: Please bring your daily weight log any discharge paperwork all of your medication bottles with you to this visit. ) Diet: Carb Consistent or DM2 and Heart Healthy Addtl Attending Provider Instructions: Take amoxicillin/Clavulinate for 1 more week Pending Studies at Discharge: No Stand-Alone Forms: My [facility] Skilled Items Patient informed of condition?: Yes DNR: Yes Discharge Level of Care: Skilled Communicable Disease: No Discharge Prognosis: Stable Lines: None Urinary Catheter: Yes Medications and DC Order Prescriptions: New nitroglycerin [Nitrostat] 0.4 mg Tablet, Sublingual 0.4 mg sublingual UD PRNQty: 0 0RF polyethylene glycol 3350 [Miralax] 17 gram Powder In Packet 17 g PO DAILY Qty: 0 0RF sennosides-docusate sodium [Senokot-S] 8.6-50 mg Tablet 1 tab PO BID Qty: 0 0RF tramadol 50 mg Tablet 50 mg PO Q4H PRNQty: 0 0RF latanoprost 0.005 % Drops 1 drp ophthalmic (eye) HS Qty: 0 0RF Morphine/Clonidine Pp [Morphine, Clonidine Pain Pump] 1 pump intrathecal UD Qty: 0 0RF Entresto 24-26 mg Tablet 1 tab PO BID Qty: 0 0RF carvedilol 6.25 mg Tablet 6.25 mg PO BIDM Qty: 0 0RF glipizide 2.5 mg Tablet Extended Release 24hr 5 mg PO BIDM Qty: 0 0RF amiodarone 200 mg Tablet 200 mg PO QAM Qty: 0 0RF amoxicillin-pot clavulanate 875-125 mg Tablet 1 tab PO BIDM Qty: 0 0RF Continued guaifenesin [Mucinex] 600 mg tablet extended release 12hr 600 mg PO DAILY Benefiber Clear SF (dextrin) 3 gram/3.5 gram powder in packet 1.5 g PO BID PRN (Reason: ..) Rx Instructions: mix into at least 4 oz water or juice before administering bupivacaine HCl 0.25 % (2.5 mg/mL) solution See Rx Instructions .ROUTE .COMPLEX Qty: 50 0RF Dose Instruction: USE DIRECTED IN PUMP ; Rx Instructions: USE DIRECTED IN PUMP ; per Dr Atkinson glipizide 5 mg tablet extended release 24hr 5 mg PO BID Qty: 180 3RF aspirin [Enteric Coated Aspirin] 81 mg tablet,delayed release (/EC) 81 mg PO DAILY Qty: 90 3RF prednisone 20 mg tablet 20 mg PO DAILY Qty: 5 0RF Rx Instructions: For 5 days, start 01/31/2023 losartan 25 mg tablet 25 mg PO DAILY Qty: 180 3RF Align 4 mg Capsule 4 mg PO DAILY magnesium oxide 400 mg magnesium Tablet 400 mg PO QPM zolpidem [Ambien] 5 mg tablet 5 mg PO HS pantoprazole [Protonix] 40 mg tablet,delayed release (DR/EC) 40 mg PO DAILY Discharge Orders: Discharge Order (Routine); Ordered 02/09/23 Ordered By: Alejandro Sanderson Admission Data Admit Date/Time: 02/01/23 19:51 Attending Provider: Alejandro Sanderson Admit Provider: Basilio Morales Primary Care Provider: Sissy Sandhu Other Providers: Basilio Morales ; Vazquez Oakes [place] ; Patrick Win ; Wyatt Quiroga Coding Level of Care Code 43956 INP/OBS DISCH >30 MIN Diagnoses NSTEMI (non-ST elevated myocardial infarction) I21.4 PAT (paroxysmal atrial tachycardia) I47.1 HFrEF (heart failure with reduced ejection fraction) I50.20 Acute dyspnea R06.00 Diabetes mellitus type II, uncontrolled E11.65 Glycemic state: with hyperglycemia Dementia F03.90 Dementia type: unspecified type Dementia behavioral disturbance: without behavioral disturbance Gastroesophageal reflux disease K21.9 Esophagitis presence: esophagitis presence not specified Monoclonal B-cell lymphocytosis D72.820 Lumbar spinal stenosis M48.061 Neurogenic claudication status: unspecified Hypertension I10 Diarrhea R19.7 BPH with urinary obstruction N40.1; N13.8 Cardiogenic shock R57.0
--- NOTE | 2023-02-09 13:31 | Discharge Summary ---
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 He saw his PCP on 01/29/23 for cough and was placed on prednisone for 3 days. 3 to 4 days of sinus congestion, light yellow productive cough, progressive fatigue acutely worsened 2 days ago. and other home residents with viral illness. Was placed on prednisone 3 days ago 20 mg daily. [place] [address], losartan was decreased from 25 mg twice daily to daily as outpatient. Seen in the ER today. Limited historian. Reports coughing spells for 4-5 days, placed on prednisone, no improvement. Prednisone made him feel worse hasn't taken it in a day or two. Woke up this morning and felt much more weak than normal, poor energy and came to ER. Feels more winded walking around. Denies orthopnea, able to lay flat. Sleeping poorly since Saturday. No leg swelling. Oriented to year, place, name. Took medications this morning, BP meds recently decreased. BP 114/91. Cough improved last 2 days +constipation, no BM in 3 days. NO recent hematochezia/melena No nausea/vomiting. Eating and drinking normally No night sweats Lives in [facility]. 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 No history of afib or aflutter. No blood thinners. No history of stents. Denies hx of seizure or contrast allergy. Per 3 days ago had a fall, no injuries and didn't lose conciousness but felt tired. Is not sure if he tripped, pt and think he turned and slipped due to LE neuropathy 2/2 DM and lumbar stenosis. NO recent fevers, chills. notes his BP has been 140s with O2 level >94 at home but patient may have seemd 'a ltitle warm to the touch' in the last day or two. No recent anginal sx per patient or his . Medical History: Reviewed Medications: Reviewed Surgical History: Reviewed Family history: Reviewed Allergies: Reviewed Social History: No tobacco/etoh Code Status:DNR/DNI Principal Diagnosis NSTEMI, status post cardiogenic shock, paroxysmal atrial tachycardia, possible pneumonia Discharge Data Allergies Allergy/AdvReac Type Severity Reaction Status Date / Time hydrochlorothiazide Allergy Severe Hives Verified 01/29/23 13:57 Iodinated Contrast Media Allergy Severe Convulsions Verified 01/29/23 13:57 adhesive Allergy Intermediate RASH;PULLS Verified 01/29/23 13:57 SKIN OFF levofloxacin Allergy Mild HIVES, Verified 01/29/23 13:57 PRURITIS NSAIDS (Non-Steroidal Allergy Mild Elevated BP Verified 01/29/23 13:57 Anti-Inflamma amiodarone Allergy Unknown RASH Verified 01/29/23 13:57 cephalexin Allergy Unknown AFTER 14 Verified 01/29/23 13:57 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 Kxongmx-PIH-SaP Reductase Allergy Unknown Unknown Verified 01/29/23 13:57 Inhibitor [Zfwcwvo-Xmg-Tni Reductase Inhibitor] terazosin [From Hytrin] Allergy Unknown Unknown Verified 01/29/23 13:57 doxycycline AdvReac Severe Severe Verified 01/29/23 13:57 stomach pain, headaches Cephalosporins AdvReac Intermediate nausea Verified 01/29/23 13:57 after repeated dose nifedipine AdvReac Intermediate Sick to Verified 01/29/23 13:57 stomach atorvastatin AdvReac Unknown MUSCLE Verified 01/29/23 13:57 ACHES ezetimibe AdvReac stomach Verified 01/29/23 13:57 upset, leg/back pain solifenacin AdvReac urinary Verified 01/29/23 13:57 retention Consultations 02/01/23 19:49 Consult Cardiology Routine 02/06/23 09:39 Consult Pain Management Routine Procedures Performed Operation Date: 02/04/23 10:00 Actual Procedures p Cineradiography w/Routine Exam - Cuco Kohler MD, PhD s Injection / Imaging Aorta - Cuco Kohler MD, PhD p Cath, Cors with Grafts (no LV) - Cuco Kohler MD, PhD s Ultrasound Vascular Access - Cuco Kohler MD, PhD Ordered Studies 02/04/23 10:00 CL Cath Imgs for PACS use only Routine Total Time Total Time Spent Total Time Spent (In Minutes): 40 minute Discharge Plan Discharge Items Patient Disposition: Transfer Long-Term Fac Reason For Visit: NSTEMI, COUGH, EXCERTIONAL DYSPNEA Discharge Diagnosis: Non-ST elevation AR, cardiogenic shock, paroxysmal atrial tachycardia, suspected pneumonia Activity: Resume your previous activity Non-emergency contact: Primary Care Provider Call non-emergency contact if: you have any medication questions Follow-up/Referrals: Sissy Sandhu MD [Primary Care Provider] - Di Peng PA-C [Physician Preschool Principal] - 02/11/23 10:30 am (Congestive Heart Failure Program Appointment Information Early follow up is essential to managing your heart failure. An appointment has been scheduled for you with the [facility] within 7 days of discharge. Anticipate this visit to be 30-60 minutes long. Please expect a assistant prosecuting attorney phone call from one of our nurses approximately 48 hours from discharge. They will also be placing an order for lab work to be completed 1-2 days prior to your heart failure follow up appointment. Please be sure to have this done so we can go over the results when you come in. Office Location The cardiology office building is located in front of the hospital at [address] Bring the following with you to your follow-up doctor appointments: Please bring your daily weight log any discharge paperwork all of your medication bottles with you to this visit. ) Diet: Carb Consistent or DM2 and Heart Healthy Addtl Attending Provider Instructions: Take amoxicillin/Clavulinate for 1 more week Pending Studies at Discharge: No Stand-Alone Forms: My [facility] Skilled Items Patient informed of condition?: Yes DNR: Yes Discharge Level of Care: Skilled Communicable Disease: No Discharge Prognosis: Stable Lines: None Urinary Catheter: Yes Medications and DC Order Prescriptions: New latanoprost 0.005 % Drops 1 drp ophthalmic (eye) HS Qty: 0 0RF carvedilol 6.25 mg Tablet 6.25 mg PO BIDM Qty: 0 0RF polyethylene glycol 3350 [Miralax] 17 gram Powder In Packet 17 g PO DAILY Qty: 0 0RF amiodarone 200 mg Tablet 200 mg PO QAM Qty: 0 0RF tramadol 50 mg Tablet 50 mg PO Q4H PRNQty: 0 0RF nitroglycerin [Nitrostat] 0.4 mg Tablet, Sublingual 0.4 mg sublingual UD PRNQty: 0 0RF amoxicillin-pot clavulanate 875-125 mg Tablet 1 tab PO BIDM Qty: 0 0RF Entresto 24-26 mg Tablet 1 tab PO BID Qty: 0 0RF sennosides-docusate sodium [Senokot-S] 8.6-50 mg Tablet 1 tab PO BID Qty: 0 0RF glipizide 2.5 mg Tablet Extended Release 24hr 5 mg PO BIDM Qty: 0 0RF Morphine/Clonidine Pp [Morphine, Clonidine Pain Pump] 1 pump intrathecal UD Qty: 0 0RF Continued guaifenesin [Mucinex] 600 mg tablet extended release 12hr 600 mg PO DAILY Benefiber Clear SF (dextrin) 3 gram/3.5 gram powder in packet 1.5 g PO BID PRN (Reason: ..) Rx Instructions: mix into at least 4 oz water or juice before administering bupivacaine HCl 0.25 % (2.5 mg/mL) solution See Rx Instructions .ROUTE .COMPLEX Qty: 50 0RF Dose Instruction: USE DIRECTED IN PUMP ; Rx Instructions: USE DIRECTED IN PUMP ; per Dr Atkinson glipizide 5 mg tablet extended release 24hr 5 mg PO BID Qty: 180 3RF aspirin [Enteric Coated Aspirin] 81 mg tablet,delayed release (DR/EC) 81 mg PO DAILY Qty: 90 3RF prednisone 20 mg tablet 20 mg PO DAILY Qty: 5 0RF Rx Instructions: For 5 days, start 01/31/2023 losartan 25 mg tablet 25 mg PO DAILY Qty: 180 3RF Align 4 mg Capsule 4 mg PO DAILY magnesium oxide 400 mg magnesium Tablet 400 mg PO QPM pantoprazole [Protonix] 40 mg tablet,delayed release (DR/EC) 40 mg PO DAILY Changed zolpidem [Ambien] 5 mg tablet 5 mg PO HS Qty: 6 0RF Discharge Orders: Discharge Order (Routine); Ordered 02/09/23 Ordered By: Alejandro Sanderson Admission Data Admit Date/Time: 02/01/23 19:51 Attending Provider: Alejandro Sanderosn Admit Provider: Basilio Morales Primary Care Provider: Sissy Sandhu Other Providers: Basilio Morales ; Vazquez Oakes [place] ; Patrick Win ; Wyatt Quiroga Other Interventions: Discharge Summary Assessment (RN) Last Done: 02/09/23 11:11 Coding Level of Care Code 66234 INP/OBS DISCH >30 MIN Diagnoses
== END 2023-02-09 11:31 | DRG 280 ==
LOC: 2E 11:33 → ED 11:33 → 2E 17:30 → SUATTDRO 19:51 → 1E 02-02 17:42 → 2S 02-07 17:03
PROC: CLB.CCG (2023-02-04 10:00)
PROC: CLB.IPA (2023-02-04 10:00)

== ENCOUNTER 2023-02-11 01:27 | Inpatient (IN) ==
--- NOTE | 2023-02-11 01:47 | Emergency Department Note ---
Impression & Plan Dyspnea, Hypoxia, Chest pain, Multifocal pneumonia, CKD (chronic kidney disease), Leukocytosis, Elevated troponin ED Provider Note ED Provider Note NAME: SIRISHA RIVAS AGE:87 SEX: Male : 1935 ARRIVES VIA: EMS INFORMANT: Patient, EMS ED PROVIDER(s): Christiane Orosco DO CHIEF COMPLAINT: Shortness of breath HPI: This is an 87-year-old male who presents from local facility via EMS due to shortness of breath. EMS reports on their arrival patient was on nasal cannula at 3 L/min and was hypoxic at 80%. They state they changed him over to a nonrebreather and his oxygen slowly came up to 90%. They state he did have slightly increased work of breathing, and slightly diminished breath sounds. No other treatment prior to arrival. They state patient with significant heart history. Patient states he has had worsening symptoms over the last 2 to 3 days with accompanying chest discomfort additionally. He also states he had intermittent abdominal discomfort. EMS also reports patient is on chronic narcotics for persistent back pain and does have a pain pump. PAST MEDICAL HISTORY:See Below PAST SURGICAL HISTORY:See Below FAMILY HISTORY:See Below SOCIAL HISTORY:See Below HOME MEDICATIONS:See Below ALLERGIES:See Below VITALS:See Below PHYSICAL EXAMINATION: GENERAL: alert, well appearing, well nourished, no distress, non-toxic EYE EXAM: normal conjunctiva, PERRL and EOM's grossly intact OROPHARYNX: no exudate, no erythema, lips, buccal mucosa, and tongue normal and mucous membranes are moist NECK: supple, no nuchal rigidity, no adenopathy, non-tender LUNGS: Clear to auscultation. Normal chest wall mechanics, no w/r/r HEART: no murmurs, S1 normal and S2 normal, well-healed sternotomy scar ABDOMEN: abdomen soft, non-tender, normo-active bowel sounds, no masses, no rebound or guarding. Well-healed incisions noted, including a site in the left abdomen with pain pump palpable BACK: Back is symmetrical on inspection and there is no deformity, no midline tenderness, no CVA tenderness. SKIN: no rashes, petechiae, orbruising UPPER EXTREMITIES: upper extremities are grossly normal. FROM, nml pulses b/l. LOWER EXTREMITIES: 1+ b/l pitting edema. FROM, nml pulses b/l. NEURO EXAM: Normal sensorium, cranial nerves II-XII grossly intact, normal speech, no facial droop,nogross weakness of arms, no gross weakness of legs. Gross sensation intact. No ataxia. Vital Signs: reviewed and remarkable Differential Diagnosis: Differential diagnoses includes but is not limited to pneumonia, bronchitis, COPD/Asthma exacerbation, pneumothorax, pulmonary embolism, congestive heart failure, acute coronary syndrome MEDICAL DECISION MAKING: This is an 87-year-old male who presents from a local facility due to increased trouble breathing and hypoxia noted by staff. Patient presented on 15 L via nonrebreather by EMS with sats at 90%. Labs drawn and sent, IV established, EKG and chest ray performed at bedside and interpreted by me and patient placed on telemetry. Patient sats did improve into the mid 90s on the 15 L while this was being performed. Chest x-ray with appearance of evolving left lower lobe pneumonia. Patient with significant cardiac history and ejection fraction of 25%. Minimal IV fluids given as a result. CBC showed a significant leukocytosis and upon reviewing the EMR it appeared that he had had a worsening leukocytosis throughout the course of his stay. Patient stated he was not taking any steroids currently, and was also previously discharged on Augmentin. Patient given a DuoNeb for wheezing that was noted on a recheck, and I called RT to transition the patient to high flow nasal cannula as he was unable to otherwise be weaned and still complained of shortness of breath on the nonrebreather. Patient was well-appearing and reported feeling improved on high flow nasal cannula. Patient ultimately sent for CT of the chest, abdomen and pelvis. Patient with a multi lobar pneumonia seen on chest CT. These were done without contrast as the patient has a significant IV dye allergy. Patient had initially been given empiric cefepime upon noting the leukocytosis, azithromycin was added after review and a MRSA nasal swab ordered due to recent hospitalization and need for broader coverage in consideration of a nosocomial infection additionally. Bio fire was negative for acute viral etiology. Patient's and son updated upon their arrival at bedside. They were able to provide additional history about his recent hospitalization as patient has only been home for 2 to 3 days. Patient had an elevated troponin and BNP, unclear if this is secondary to increased cardiac demand in the setting of infection and his hypoxia. Chest CT not suggestive of acute pulmonary edema. Case discussed with hospitalist for additional evaluation and management. Consultation(s): 0635: Discussed with Dr. Molina, hospitalist. ER Treatment Provided: See below 0245: Pt still on 15 lpm NRB. Vs stable. 0450: Patient now with slight wheezing. Awaiting CT results. Given duoneb and transitioned to HRNC. Diagnostics Interpreted By Me: -ECG: Normal sinus at 82, leftward axis, normal QRS and QTc, nonspecific ST/T wave changes noted, significant baseline artifact due to patient tremors -Cardiac Monitoring: An order was placed for continuous cardiac monitoring. The monitor shows a rate of 86 with normal sinus rhythm. -Laboratory studies: As stated above and show below. -Imaging studies: X-ray Chest: A single view study of the chest was reviewed and was negative for cardiomegaly, effusion, pulmonary edema, or wide mediastinum. Appearance of evolving left lower lung infiltrate. Triage Nursing Note Reviewed Prior/Outside Records Reviewed -prior discharge summary Procedures: [] Critical Care: Critical care of 48 min performed to assess and manage high likelihood of life- threatening acute hypoxic respiratory failure, involving labs and imaging performed with assessment to evaluate acute hypoxic respiratory failure diagnosis with frequent reassessment. This time includes bedside time, treatment discussions with patient/family/consultants, documentation time and excludes procedure time. Past Med/Surg History Medical History Acute and chronic respiratory failure with hypoxia Cataracts, bilateral Falls Glaucoma History of heart attack History of skin cancer Incisional hernia Lumbar postlaminectomy syndrome Lung nodule Monoclonal B-cell lymphocytosis Postlaminectomy syndrome of lumbosacral region Right lower lobe pneumonia Statin intolerance Tinnitus of both ears Umbilical hernia 2006 Urinary retention Surgical History H/O umbilical hernia repair History of appendectomy 1947 History of back surgery x4 laminectomy 1984; AL Fusion L5-S1 1988; L4, L5 S1 [id number]; History of carpal tunnel surgery History of cataract surgery S/P CABG x 3 S/P triple vessel bypass 2001 Status post left foot surgery Status post right partial knee replacement partial 2005 Surgery, elective Neurol drug infusion implantation of programmable pump 2010 Family History Mother Stroke Coronary heart disease Hypertension Osteoarthritis Rheumatoid arthritis Heart disease Myocardial infarction Father Coronary heart disease Heart disease Sister Familial tremor Grandfather Heart disease Uncle Heart disease Other Family history non-contributory Denies family history of Ovarian cancer Prostate cancer Diabetes Breast cancer Lung cancer Colorectal cancer Social History Smoking Status: Former smoker Tobacco Type: Cigarettes Second Hand Exposure: No; Do You Dip or Chew Tobacco: No; Hx Alcohol Use: Yes Alcohol type: beer Alcohol Intake Frequency: Monthly or Less Hx Substance Use: No Preferred Language: Congolese Communication Ability: Effective Visual Impairment: Limited Hearing Ability: Normal Breaker Unit Assembler Required: No Beliefs That Will Affect Care: None marital status: Current Living Situation: Custodial and Personal Care Facility Current Living Situation Comment: lives at [facility] [place] current occupational status: retired How many Children do You have: 3 Other Information That Helps Us Care for You: No Feels Safe at Home: Yes Safety Concerns: Feels Safe At This Time Childhood Exposure to Second-Hand Smoke: Yes caffeine: Yes Dental Care, Regularly: Yes Physical Activity Frequency: Does not Exercise Seatbelt Use: always Sunscreen Use: Yes Assistive Devices: Glasses and Walker Allergies Allergies Allergy/AdvReac Type Severity Reaction Status Date / Time hydrochlorothiazide Allergy Severe Hives Verified 01/29/23 13:57 Iodinated Contrast Media Allergy Severe Convulsions Verified 01/29/23 13:57 adhesive Allergy Intermediate RASH;PULLS Verified 01/29/23 13:57 SKIN OFF levofloxacin Allergy Mild HIVES, Verified 01/29/23 13:57 PRURITIS NSAIDS (Non-Steroidal Allergy Mild Elevated BP Verified 01/29/23 13:57 Anti-Inflamma amiodarone Allergy Unknown RASH Verified 02/11/23 10:26 cephalexin Allergy Unknown AFTER 14 Verified 01/29/23 13:57 DAYS-DEVELOPED GASTRITIS-2017 Btoizxp-ADT-UrP Reductase Allergy Unknown Unknown Verified 01/29/23 13:57 Inhibitor [Qwsojri-Uam-Peb Reductase Inhibitor] terazosin [From Hytrin] Allergy Unknown Unknown Verified 01/29/23 13:57 doxycycline AdvReac Severe Severe Verified 01/29/23 13:57 stomach pain, headaches Cephalosporins AdvReac Intermediate nausea Verified 01/29/23 13:57 after repeated dose nifedipine AdvReac Intermediate Sick to Verified 01/29/23 13:57 stomach atorvastatin AdvReac Unknown MUSCLE Verified 01/29/23 13:57 ACHES ezetimibe AdvReac stomach Verified 01/29/23 13:57 upset, leg/back pain solifenacin AdvReac urinary Verified 01/29/23 13:57 retention Home Meds Home Medications Medication Instructions Recorded Confirmed guaifenesin 600 mg tablet, 600 mg PO DAILY 01/12/22 02/01/23 extended release 12 hr (Mucinex) wheat dextrin 3 gram/3.5 gram oral 1.5 g PO BID PRN .. 07/13/22 02/01/23 powder packet (Benefiber Clear Sugar Free(dextrin)) Bifidobacterium infantis 4 mg 4 mg PO DAILY 02/01/23 02/01/23 capsule (Align) magnesium oxide 400 mg PO QPM 02/01/23 02/01/23 pantoprazole 40 mg tablet,delayed 40 mg PO DAILY 02/01/23 02/01/23 release (Protonix) Previous Rx's Medication Instructions Recorded bupivacaine HCl 0.25 % (2.5 mg/mL) See Rx Instructions .Route 05/18/19 injection solution .COMPLEX #50 mL aspirin 81 mg tablet,delayed 81 mg PO DAILY #90 tabs 07/13/22 release (Enteric Coated Aspirin) glipizide 5 mg tablet, extended 5 mg PO BID #180 tabs 01/16/23 release 24 hr losartan 25 mg tablet 25 mg PO DAILY #180 tabs 01/29/23 prednisone 20 mg tablet 20 mg PO DAILY #5 tabs 01/29/23 Morphine/Clonidine PP [Morphine, 1 pump intrathecal UD ##0 02/09/23 Clonidine Pain Pump] amiodarone 200 mg tablet 200 mg PO QAM #0 tabs 02/09/23 amoxicillin 875 mg-potassium 1 tab PO BIDM #0 tabs 02/09/23 clavulanate 125 mg tablet carvedilol 6.25 mg tablet 6.25 mg PO BIDM #0 tabs 02/09/23 glipizide 2.5 mg tablet, extended 5 mg PO BIDM #0 tabs 02/09/23 release 24 hr latanoprost 0.005 % eye drops 1 drp ophthalmic (eye) HS #0 mL 02/09/23 nitroglycerin 0.4 mg sublingual 0.4 mg sublingual UD PRN #0 tabs 02/09/23 tablet (Nitrostat) polyethylene glycol 3350 17 gram 17 g PO DAILY #0 ea 02/09/23 oral powder packet (Miralax) sacubitril 24 mg-valsartan 26 mg 1 tab PO BID #0 tabs 02/09/23 tablet (Entresto) sennosides 8.6 mg-docusate sodium 1 tab PO BID #0 tabs 02/09/23 50 mg tablet (Senokot-S) tramadol 50 mg tablet 50 mg PO Q4H PRN #0 tabs 02/09/23 zolpidem 5 mg tablet (Ambien) 5 mg PO HS #6 tabs 02/09/23 Results & Data (ED) Vital Signs Vital Signs - 24 hr 02/11/23 01:39 02/11/23 01:39 02/11/23 01:39 Temperature 36.5 C Temperature Source Axillary Pulse Rate 127 H Pulse Rate [Apical] Pulse Rate from SpO2 Sensor Respiratory Rate 26 H Respiratory Effort / Characteristics Labored Respiratory Depth Deep Blood Pressure 114/66 Blood Pressure Mean 82 Blood Pressure Position Sitting Pulse Oximetry 98 97 Oxygen Delivery Method Non-rebreather Non-rebreather Non-rebreather Oxygen Flow Rate 15 Fraction of Inspired Oxygen Sepsis Recent Fever Within 48 Hours No Sepsis New/Unexplained Change in Mental Status N/A Sepsis Action Taken by Nursing Physician Notified 02/11/23 03:00 02/11/23 03:29 02/11/23 03:29 Temperature Temperature Source Pulse Rate 80 81 Pulse Rate [Apical] Pulse Rate from SpO2 Sensor 79 79 Respiratory Rate 18 20 Respiratory Effort / Characteristics Respiratory Depth Blood Pressure 107/86 Blood Pressure Mean 93 Blood Pressure Position Pulse Oximetry 98 95 Oxygen Delivery Method Non-rebreather Non-rebreather Oxygen Flow Rate 15 15 Fraction of Inspired Oxygen Sepsis Recent Fever Within 48 Hours Sepsis New/Unexplained Change in Mental Status Sepsis Action Taken by Nursing 02/11/23 03:30 02/11/23 03:30 02/11/23 04:08 Temperature Temperature Source Pulse Rate 79 69 Pulse Rate [Apical] Pulse Rate from SpO2 Sensor 75 Respiratory Rate 19 Respiratory Effort / Characteristics Respiratory Depth Blood Pressure 111/65 Blood Pressure Mean 80 Blood Pressure Position Pulse Oximetry 93 Oxygen Delivery Method Non-rebreather Oxygen Flow Rate 15 Fraction of Inspired Oxygen Sepsis Recent Fever Within 48 Hours Sepsis New/Unexplained Change in Mental Status Sepsis Action Taken by Nursing 02/11/23 05:23 02/11/23 04:00 02/11/23 04:00 Temperature Temperature Source Pulse Rate 71 Pulse Rate [Apical] 75 Pulse Rate from SpO2 Sensor 73 Respiratory Rate 20 17 Respiratory Effort / Characteristics Spontaneous Labored Respiratory Depth Blood Pressure 95/55 L Blood Pressure Mean 68 Blood Pressure Position Pulse Oximetry 94 97 Oxygen Delivery Method High Flow Nasal Cannula High Flow Nasal Cannula Oxygen Flow Rate 25 Fraction of Inspired Oxygen 60 Sepsis Recent Fever Within 48 Hours Sepsis New/Unexplained Change in Mental Status Sepsis Action Taken by Nursing 02/11/23 04:30 02/11/23 05:30 02/11/23 05:30 Temperature Temperature Source Pulse Rate 75 82 Pulse Rate [Apical] Pulse Rate from SpO2 Sensor 75 81 Respiratory Rate 19 21 Respiratory Effort / Characteristics Respiratory Depth Blood Pressure 117/62 Blood Pressure Mean 80 Blood Pressure Position Pulse Oximetry 94 94 Oxygen Delivery Method High Flow Nasal Cannula Oxygen Flow Rate Fraction of Inspired Oxygen Sepsis Recent Fever Within 48 Hours Sepsis New/Unexplained Change in Mental Status Sepsis Action Taken by Nursing 02/11/23 06:34 02/11/23 06:34 02/11/23 07:43 Temperature Temperature Source Pulse Rate 75 Pulse Rate [Apical] 84 Pulse Rate from SpO2 Sensor 75 Respiratory Rate 19 20 Respiratory Effort / Characteristics Spontaneous Respiratory Depth Blood Pressure 93/61 L Blood Pressure Mean 71 Blood Pressure Position Pulse Oximetry 92 93 Oxygen Delivery Method High Flow Nasal Cannula High Flow Nasal Cannula Oxygen Flow Rate 25 Fraction of Inspired Oxygen 45 Sepsis Recent Fever Within 48 Hours Sepsis New/Unexplained Change in Mental Status Sepsis Action Taken by Nursing 02/11/23 07:00 02/11/23 07:30 02/11/23 08:00 Temperature Temperature Source Pulse Rate 72 76 Pulse Rate [Apical] Pulse Rate from SpO2 Sensor 72 77 80 Respiratory Rate 19 17 22 Respiratory Effort / Characteristics Respiratory Depth Blood Pressure 96/57 L 111/63 112/66 Blood Pressure Mean 70 79 81 Blood Pressure Position Pulse Oximetry 94 97 92 Oxygen Delivery Method High Flow Nasal Cannula High Flow Nasal Cannula High Flow Nasal Cannula Oxygen Flow Rate Fraction of Inspired Oxygen Sepsis Recent Fever Within 48 Hours Sepsis New/Unexplained Change in Mental Status Sepsis Action Taken by Nursing Laboratory Data 02/11/23 01:49 02/11/23 01:49 Lab Results 02/11/23 02/11/23 02/11/23 Range/Units 01:37 01:48 01:49 WBC 30.51 H* (4.8-10.8) K/ul RBC 4.47 L (4.70-6.10) M/uL Hgb 14.1 (14.0-18.0) g/dl Hct 43.4 (42.0-52.0) % MCV 97.1 (80.0-100.0) fL MCH 31.5 (25.0-34.0) pg MCHC 32.5 (32.0-36.0) g/dL RDW Std Deviation 48.2 H (36.4-46.3) fL RDW Coeff of Jennifer 13.5 (11.5-14.5) % Plt Count 342 (130-400) K/uL MPV 11.3 (9.4-12.4) fL Immature Gran % (Auto) 0.9 % Neut % (Auto) 68.7 % Lymph % (Auto) 25.4 % Snyder % (Auto) 4.0 % Eos % (Auto) 0.6 % Baso % (Auto) 0.4 % Neut # (Auto) 21.00 H (1.40-6.50) K/uL Lymph # (Auto) 7.74 H (1.2-3.4) K/uL Snyder # (Auto) 1.21 H (0.11-0.59) K/uL Eos # (Auto) 0.17 (0-0.50) K/uL Baso # (Auto) 0.12 (0-0.2) K/uL Immature Gran # (Auto) 0.27 H (0.01-0.20) K/uL Echinocytes 1+ Sodium (136-145) mmol/L Potassium (3.5-5.1) mmol/L Chloride (98-107) mmol/L Carbon Dioxide (21-32) mmol/L Anion Gap (3-11) BUN (6-23) mg/dl Creatinine (0.6-1.4) mg/dl Est Cr Clr Drug Dosing ml/min Est GFR ( Amer) ml/min Est GFR (Non-Af Amer) ml/min BUN/Creatinine Ratio (10-20) Glucose (70-99(Fasting)) mg/dl Lactate (0.4-2.0) mmol/L Calcium (8.6-10.3) mg/dl Magnesium (1.7-2.4) mg/dl Total Bilirubin (0.2-1.0) mg/dl AST (13-39) U/L ALT (7-52) U/L Alkaline Phosphatase (34-104) U/L Troponin I High Sens (0-20) pg/ml B-Natriuretic Peptide (0-100) pg/ml Total Protein (6.0-8.3) gm/dl Albumin (3.4-5.0) gm/dl Globulin (2.5-4.0) gm/dl Albumin/Globulin Ratio (0.9-2) Procalcitonin 0.41 (0-0.5) ng/ml Nasal Screen MRSA (PCR) (Negative) Adenovirus (PCR) Not Detected (NotDetected) B. pertussis DNA (PCR) Not Detected (NotDetected) B.parapertussis DNA PCR Not Detected (NotDetected) C. pneumoniae DNA (PCR) Not Detected (NotDetected) Coronavirus OC43 (PCR) Not Detected (NotDetected) Coronavirus HKU1 (PCR) Not Detected (NotDetected) Coronavirus 229E (PCR) Not Detected (NotDetected) SARS-CoV-2 (PCR) Not Detected (NotDetected) Coronavirus NL63 (PCR) Not Detected (NotDetected) Human Metapneumovir PCR Not Detected (NotDetected) Influenza Type A (PCR) Not Detected (NotDetected) Influenza Type B (PCR) Not Detected (NotDetected) M. pneumoniae (PCR) Not Detected (NotDetected) Parainfluenza 1 (PCR) Not Detected (NotDetected) Parainfluenza 2 (PCR) Not Detected (NotDetected) Parainfluenza 3 (PCR) Not Detected (NotDetected) Parainfluenza 4 (PCR) Not Detected (NotDetected) RSV (PCR) Not Detected (NotDetected) Entero/Rhino (PCR) Not Detected (NotDetected) 02/11/23 02/11/23 02/11/23 Range/Units 01:49 01:49 02:57 WBC (4.8-10.8) K/ul RBC (4.70-6.10) M/uL Hgb (14.0-18.0) g/dl Hct (42.0-52.0) % MCV (80.0-100.0) fL MCH (25.0-34.0) pg MCHC (32.0-36.0) g/dL RDW Std Deviation (36.4-46.3) fL RDW Coeff of Jennifer (11.5-14.5) % Plt Count (130-400) K/uL MPV (9.4-12.4) fL Immature Gran % (Auto) % Neut % (Auto) % Lymph % (Auto) % Snyder % (Auto) % Eos % (Auto) % Baso % (Auto) % Neut # (Auto) (1.40-6.50) K/uL Lymph # (Auto) (1.2-3.4) K/uL Snyder # (Auto) (0.11-0.59) K/uL Eos # (Auto) (0-0.50) K/uL Baso # (Auto) (0-0.2) K/uL Immature Gran # (Auto) (0.01-0.20) K/uL Echinocytes Sodium 134 L (136-145) mmol/L Potassium 4.9 (3.5-5.1) mmol/L Chloride 99 (98-107) mmol/L Carbon Dioxide 25 (21-32) mmol/L Anion Gap 10 (3-11) BUN 39 H (6-23) mg/dl Creatinine 1.82 H (0.6-1.4) mg/dl Est Cr Clr Drug Dosing 30.9 ml/min Est GFR ( Amer) 37.9 ml/min Est GFR (Non-Af Amer) 32.7 ml/min BUN/Creatinine Ratio 21.4 H (10-20) Glucose 161 H (70-99(Fasting)) mg/dl Lactate 2.3 H* (0.4-2.0) mmol/L Calcium 8.5 L (8.6-10.3) mg/dl Magnesium 2.4 (1.7-2.4) mg/dl Total Bilirubin 1.1 H (0.2-1.0) mg/dl AST 14 (13-39) U/L ALT 15 (7-52) U/L Alkaline Phosphatase 60 (34-104) U/L Troponin I High Sens 491.8 H* (0-20) pg/ml B-Natriuretic Peptide 929 H (0-100) pg/ml Total Protein 7.0 (6.0-8.3) gm/dl Albumin 3.5 (3.4-5.0) gm/dl Globulin 3.5 (2.5-4.0) gm/dl Albumin/Globulin Ratio 1.0 (0.9-2) Procalcitonin (0-0.5) ng/ml Nasal Screen MRSA (PCR) (Negative) Adenovirus (PCR) (NotDetected) B. pertussis DNA (PCR) (NotDetected) B.parapertussis DNA PCR (NotDetected) C. pneumoniae DNA (PCR) (NotDetected) Coronavirus OC43 (PCR) (NotDetected) Coronavirus HKU1 (PCR) (NotDetected) Coronavirus 229E (PCR) (NotDetected) SARS-CoV-2 (PCR) (NotDetected) Coronavirus NL63 (PCR) (NotDetected) Human Metapneumovir PCR (NotDetected) Influenza Type A (PCR) (NotDetected) Influenza Type B (PCR) (NotDetected) M. pneumoniae (PCR) (NotDetected) Parainfluenza 1 (PCR) (NotDetected) Parainfluenza 2 (PCR) (NotDetected) Parainfluenza 3 (PCR) (NotDetected) Parainfluenza 4 (PCR) (NotDetected) RSV (PCR) (NotDetected) Entero/Rhino (PCR) (NotDetected) 02/11/23 02/11/23 Range/Units 06:26 07:43 WBC (4.8-10.8) K/ul RBC (4.70-6.10) M/uL Hgb (14.0-18.0) g/dl Hct (42.0-52.0) % MCV (80.0-100.0) fL MCH (25.0-34.0) pg MCHC (32.0-36.0) g/dL RDW Std Deviation (36.4-46.3) fL RDW Coeff of Jennifer (11.5-14.5) % Plt Count (130-400) K/uL MPV (9.4-12.4) fL Immature Gran % (Auto) % Neut % (Auto) % Lymph % (Auto) % Snyder % (Auto) % Eos % (Auto) % Baso % (Auto) % Neut # (Auto) (1.40-6.50) K/uL Lymph # (Auto) (1.2-3.4) K/uL Snyder # (Auto) (0.11-0.59) K/uL Eos # (Auto) (0-0.50) K/uL Baso # (Auto) (0-0.2) K/uL Immature Gran # (Auto) (0.01-0.20) K/uL Echinocytes Sodium (136-145) mmol/L Potassium (3.5-5.1) mmol/L Chloride (98-107) mmol/L Carbon Dioxide (21-32) mmol/L Anion Gap (3-11) BUN (6-23) mg/dl Creatinine (0.6-1.4) mg/dl Est Cr Clr Drug Dosing ml/min Est GFR ( Amer) ml/min Est GFR (Non-Af Amer) ml/min BUN/Creatinine Ratio (10-20) Glucose (70-99(Fasting)) mg/dl Lactate 1.9 (0.4-2.0) mmol/L Calcium (8.6-10.3) mg/dl Magnesium (1.7-2.4) mg/dl Total Bilirubin (0.2-1.0) mg/dl AST (13-39) U/L ALT (7-52) U/L Alkaline Phosphatase (34-104) U/L Troponin I High Sens (0-20) pg/ml B-Natriuretic Peptide (0-100) pg/ml Total Protein (6.0-8.3) gm/dl Albumin (3.4-5.0) gm/dl Globulin (2.5-4.0) gm/dl Albumin/Globulin Ratio (0.9-2) Procalcitonin (0-0.5) ng/ml Nasal Screen MRSA (PCR) Negative (Negative) Adenovirus (PCR) (NotDetected) B. pertussis DNA (PCR) (NotDetected) B.parapertussis DNA PCR (NotDetected) C. pneumoniae DNA (PCR) (NotDetected) Coronavirus OC43 (PCR) (NotDetected) Coronavirus HKU1 (PCR) (NotDetected) Coronavirus 229E (PCR) (NotDetected) SARS-CoV-2 (PCR) (NotDetected) Coronavirus NL63 (PCR) (NotDetected) Human Metapneumovir PCR (NotDetected) Influenza Type A (PCR) (NotDetected) Influenza Type B (PCR) (NotDetected) M. pneumoniae (PCR) (NotDetected) Parainfluenza 1 (PCR) (NotDetected) Parainfluenza 2 (PCR) (NotDetected) Parainfluenza 3 (PCR) (NotDetected) Parainfluenza 4 (PCR) (NotDetected) RSV (PCR) (NotDetected) Entero/Rhino (PCR) (NotDetected) Administered Medications Amiodarone HCl (Amiodarone 200 Mg Tab) 200 mg PO QAM ON LICENSE OF [facility] Stop: 03/13/23 10:29 Last Admin: 02/11/23 11:42 Dose: 200 mg Documented By: DESTINY Carvedilol (Carvedilol 6.25 Mg Tab) 6.25 mg PO BIDM ON LICENSE OF [facility] Stop: 03/13/23 16:59 Last Admin: 02/11/23 16:55 Dose: Not Given Documented By: DESTINY Hydromorphone HCl (Hydromorphone Inj 0.5 Mg/0.5 Ml Syr) 0.5 mg IV Q1H PRN PRN Reason: pain or dyspnea Stop: 02/25/23 12:25 Last Admin: 02/11/23 16:40 Dose: 0.5 mg Documented By: ELISA Hydromorphone HCl (Hydromorphone Inj 0.5 Mg/0.5 Ml Syr) 0.5 mg IV Q4H ON LICENSE OF [facility] Stop: 02/25/23 15:29 Last Admin: 02/11/23 23:04 Dose: 0.5 mg Documented By: Admin: 02/11/23 20:47 Dose: 0.5 mg Documented By: Admin: 02/11/23 15:47 Dose: Not Given Documented By: DESTINY Lorazepam (Lorazepam 2 Mg/1 Ml Vial) 0.5 mg IV Q4H PRN PRN Reason: Anxiety Stop: 03/13/23 14:55 Last Admin: 02/11/23 17:31 Dose: 0.5 mg Documented By: ELISA Discontinued Medications Albuterol (Albut/Ipratrop 3mg/0.5mg Neb 3 Ml Vial) 3 ml NEB NOW STA; Protocol Stop: 02/11/23 04:53 Last Admin: 02/11/23 04:57 Dose: 3 ml Documented By: Aspirin (Aspirin 81 Mg Ectab) 81 mg PO DAILY ON LICENSE OF [facility] Stop: 03/13/23 10:29 Last Admin: 02/11/23 11:42 Dose: 81 mg Documented By: DESTINY Guaifenesin (Guaifenesin 600 Mg Tabcr) 600 mg PO DAILY ON LICENSE OF [facility] Stop: 03/13/23 10:29 Last Admin: 02/11/23 11:42 Dose: 600 mg Documented By: DESTINY Heparin Sodium (Porcine) (Heparin Sod 5,000 Unit/0.5 Ml Vial) 5,000 units SQ Q8 ON LICENSE OF [facility] Stop: 03/13/23 13:59 Last Admin: 02/11/23 15:03 Dose: 5,000 units Documented By: DESTINY Hydromorphone HCl (Hydromorphone Inj 0.5 Mg/0.5 Ml Syr) 0.5 mg IV NOW STA Stop: 02/11/23 10:16 Last Admin: 02/11/23 10:23 Dose: 0.5 mg Documented By: MAN Hydromorphone HCl (Hydromorphone Inj 0.5 Mg/0.5 Ml Syr) 0.25 mg IV Q4H PRN PRN Reason: Moderate Pain (Scale 4, 5, 6) Stop: 02/25/23 12:30 Last Admin: 02/11/23 15:03 Dose: 0.25 mg Documented By: DESTINY Hydromorphone HCl (Hydromorphone Inj 0.5 Mg/0.5 Ml Syr) Confirm Administered Dose 0.5 mg .ROUTE .STK-MED ONE Stop: 02/11/23 15:38 Last Admin: 02/11/23 15:44 Dose: 0.5 mg Documented By: DESTINY Cefepime HCl (Maxipime) 2,000 mg in 20 mls @ 5 mls/min IV NOW STA; Protocol Stop: 02/11/23 02:38 Last Admin: 02/11/23 04:19 Dose: 5 mls/min Documented By: Acetaminophen (Ofirmev) 1,000 mg in 100 mls @ 400 mls/hr IV NOW STA Stop: 02/11/23 05:04 Last Infusion: 02/11/23 06:36 Dose: 0 mls/hr Documented By: Admin: 02/11/23 04:57 Dose: 400 mls/hr Documented By: Azithromycin 500 mg/ Dextrose 255 mls @ 127.5 mls/hr IV NOW STA Stop: 02/11/23 08:11 Last Infusion: 02/11/23 09:39 Dose: 0 mls/hr Documented By: Admin: 02/11/23 07:39 Dose: 127.5 mls/hr Documented By: MAN Sodium Chloride (Nss 1000ml) 500 mls @ 999 mls/hr IV .Q31M ONE Stop: 02/11/23 07:09 Last Infusion: 02/11/23 08:11 Dose: 0 mls/hr Documented By: Admin: 02/11/23 07:40 Dose: 999 mls/hr Documented By: MAN Lactobacillus Acidophilus (Advanced Probiotic 1250 Mg Capsule) 2 cap PO DAILY GRAYSON Stop: 03/13/23 10:29 Last Admin: 02/11/23 11:43 Dose: 2 cap Documented By: DESTINY Morphine Sulfate (Morphine Sulfate 2 Mg/Ml Carp) 0.5 mg IV NOW STA Stop: 02/11/23 08:56 Last Admin: 02/11/23 09:05 Dose: 0.5 mg Documented By: MAN Pantoprazole Sodium (Pantoprazole 40 Mg Tab) 40 mg PO DAILY GRAYSON Stop: 03/13/23 10:29 Last Admin: 02/11/23 11:43 Dose: 40 mg Documented By: DESTINY Discharge Plan Visit Data Chief Complaint: Shortness of Breath/Dyspnea Stated Complaint: Back Pain, Abdominal Pain ED Provider: Christiane Orosco Discharge Problem: Dyspnea, Hypoxia, Chest pain, Multifocal pneumonia, CKD (chronic kidney disease), Leukocytosis, Elevated troponin Patient Disposition: Admitted As Inpatient Discharge Instructions Interventions: ED Discharge Assessment Last Done: 02/11/23 10:28
[2023-02-11 02:22] LABS: Albumin Level 3.5 gm/dl (3.4-5.0); BUN Creatinine Ratio 21.4 (10-20); Bilirubin,Total 1.1 mg/dl (0.2-1.0); Calcium 8.5 mg/dl (8.6-10.3); Creatinine Clr Calc Pharmacy 30.9 ml/min; Est GFR (African American) 37.9 ml/min; Est GFR (Non-African American) 32.7 ml/min; Globulin 3.5 gm/dl (2.5-4.0); Magnesium 2.4 mg/dl (1.7-2.4); Potassium 4.9 mmol/L (3.5-5.1)
[2023-02-11 02:32] LABS: Troponin I High Sensitivity 491.8 pg/ml (0-20)
[2023-02-11 02:35] LABS: Basophils # (auto) 0.12 K/uL (0-0.2); Basophils % (auto) 0.4 %; Echinocytes 1+; Eosinophils # (auto) 0.17 K/uL (0-0.50); Eosinophils % (auto) 0.6 %; Hematocrit (blood only) 43.4 % (42.0-52.0); Hemoglobin 14.1 g/dl (14.0-18.0); Immature Granulocytes # (auto) 0.27 K/uL (0.01-0.20); Immature Granulocytes % (auto) 0.9 %; Lymphocytes # (auto) 7.74 K/uL (1.2-3.4); Lymphocytes % (auto) 25.4 %; Mean Corpuscular Hemoglobin 31.5 pg (25.0-34.0); Mean Corpuscular Hgb Conc 32.5 g/dL (32.0-36.0); Mean Corpuscular Volume 97.1 fL (80.0-100.0); Mean Platelet Volume 11.3 fL (9.4-12.4); Monocytes # (auto) 1.21 K/uL (0.11-0.59); Neutrophils % (auto) 68.7 %; Platelet Count 342 K/uL (130-400); RDW Coefficient of Variation 13.5 % (11.5-14.5); RDW Standard Deviation 48.2 fL (36.4-46.3); Red Blood Count 4.47 M/uL (4.70-6.10); White Blood Count 30.51 K/ul (4.8-10.8)
[2023-02-11] MEDS ORDERED: CEFEPIME 2,000 MG/20 ML VIAL IV STA (02:35)
[2023-02-11 02:54] LABS: Adenovirus PCR Not Detected (NotDetected); Bordetella parapertussis PCR Not Detected (NotDetected); Bordetella pertussis PCR Not Detected (NotDetected); Chlamydia pneumoniae PCR Not Detected (NotDetected); Coronavirus 229E PCR Not Detected (NotDetected); Coronavirus CoV-2 (COVID19)PCR Not Detected (NotDetected); Coronavirus HKU1 PCR Not Detected (NotDetected); Coronavirus NL63 PCR Not Detected (NotDetected); Coronavirus OC43PCR Not Detected (NotDetected); Human Metapneumovirus PCR Not Detected (NotDetected); Influenza A PCR Not Detected (NotDetected); Influenza B PCR Not Detected (NotDetected); Mycoplasma pneumoniae PCR Not Detected (NotDetected); Parainfluenza Virus 1 PCR Not Detected (NotDetected); Parainfluenza Virus 2 PCR Not Detected (NotDetected); Parainfluenza Virus 3 PCR Not Detected (NotDetected); Parainfluenza Virus 4 PCR Not Detected (NotDetected); Respiratory Syncytial VirusPCR Not Detected (NotDetected); Rhinovirus/Enterovirus PCR Not Detected (NotDetected)
[2023-02-11] MEDS ORDERED: ACETAMINOPHEN 1,000 MG/100 ML VIAL IV STA (04:50)
[2023-02-11] MEDS ORDERED: ALBUT/IPRATROP 3MG/0.5MG NEB 3 ML VIAL NEB STA (04:52)
[2023-02-11] MEDS ORDERED: AZITHROMYCIN 500 MG in DEXTROSE 5% 250 ML IV STA (06:12)
[2023-02-11] MEDS ORDERED: SODIUM CHLORIDE 0.9% 1000ML 500 ML IV ONE (06:39)
--- NOTE | 2023-02-11 07:18 | CT Scan Report ---
Exam(s): CT CHEST Without Contrast EXAM: CT Chest Without Intravenous Contrast CLINICAL HISTORY: Reason for exam: sob, cp. TECHNIQUE: Axial computed tomography images of the chest without intravenous contrast. Automated exposure control was utilized for the study. A dose lowering technique was utilized adhering to the principles of ALARA. COMPARISON: Prior dated 07/19/2020. FINDINGS: Lungs: Airspace disease and some small areas of consolidation throughout the lungs bilaterally. Pleural space: Unremarkable. No pneumothorax. No significant effusion. Heart: Coronary calcifications. CABG. No significant pericardial effusion. Bones/joints: Median sternotomy wires. No acute fracture. No dislocation. Soft tissues: Unremarkable. Vasculature: Unremarkable. No thoracic aortic aneurysm. Lymph nodes: Unremarkable. No enlarged lymph nodes. Other findings: Please see CT abdomen pelvis also today. IMPRESSION: Airspace disease and consolidation throughout the lungs bilaterally. Correlate for infectious or inflammatory process. Electronically signed by: Pal Kwon M.D. 02/11/23 07:17 AM
--- NOTE | 2023-02-11 07:24 | CT Scan Report ---
Exam(s): CT ABDOMEN + PELVIS Without Contrast EXAM: CT Abdomen and Pelvis Without Intravenous Contrast CLINICAL HISTORY: Reason for exam: abd pain. TECHNIQUE: Axial computed tomography images of the abdomen and pelvis without intravenous contrast. Automated exposure control was utilized for the study. A dose lowering technique was utilized adhering to the principles of ALARA. COMPARISON: 04/18/2021 FINDINGS: Lung bases: Unremarkable. No mass. No consolidation. Mediastinum: Small hiatal hernia. ABDOMEN: Liver: Unremarkable. Gallbladder and bile ducts: Gallstones within distended gallbladder. No obvious wall thickening or surrounding fluid. No ductal dilation. Pancreas: Unremarkable. No ductal dilation. Spleen: Unremarkable. No splenomegaly. Adrenals: Unremarkable. No mass. Kidneys and ureters: Multiple bilateral renal low-density and isodense lesions. Similar to the prior. Largest on the right 15 cm. No obstructing stones. Stomach and bowel: Colonic diverticulosis. No obstruction. No mucosal thickening. PELVIS: Appendix: No findings to suggest acute appendicitis. Bladder: Bladder diverticula. No stones. Reproductive: Unremarkable as visualized. ABDOMEN and PELVIS: Intraperitoneal space: Unremarkable. No free air. No significant fluid collection. Bones/joints: Please see CT chest also today regarding thoracic findings. L4-S1 posterior fusion. No acute fracture. No dislocation. Soft tissues: Unremarkable. Vasculature: Unremarkable. No abdominal aortic aneurysm. Lymph nodes: Unremarkable. No enlarged lymph nodes. IMPRESSION: 1. Please see CT chest also today regarding thoracic findings. 2. Gallstones within distended gallbladder. No obvious wall thickening or surrounding fluid. Electronically signed by: Pal Kwon M.D. 02/11/23 07:22 AM
--- NOTE | 2023-02-11 08:00 | History & Physical Report ---
Date of Service February 11, 2023 Assessment & Plan (1) Acute and chronic respiratory failure with hypoxia: Plan: 87 yo male with PMH described above. Admit to PCU. Patient has bilateral infiltrates complicated by elevated WBC and increasing procal. Difficult to state that this is truly an infection as NANCY could affect the procal. WBC could be from monoclonal B cell lymphocytosis and use of prednisone. HOwever, given that WBC was rising, and there is bilateral infiltrates, will treat for infectious causes. Will slowly try to diurese patient without affecting his BP. Patient requested pallaitive care cosnutl. Consulted pain management to check if pain pump is working as patient is in severe pain. Update: Patient was later converted to comfort measures after discussion with palliative care provider. Family and patient agreeable. (2) NSTEMI (non-ST elevated myocardial infarction): Plan: recent admission with above diagnosis, discharged on 02/09 Echo with evidence of severe wall motion abnormalities in the inferior wall, inferolateral wall, anterolateral wall, base and mid anterior wall. Treated with heparin gtt. Heart catheterization completed on February 04 revealed 2 obstructed saphenous vein grafts. The LARIOS to the LAD is patent. Medical management recommended. Amiodarone has been restarted on February 05, per cardiology recommendations. (3) HFrEF (heart failure with reduced ejection fraction): Plan: Echocardiogram 02/01/23 with mildly dilated LV with severely reduced EF 25-30%. Possible excerbation. (4) Monoclonal B-cell lymphocytosis: Plan: Stable. No acute intervention necessary at this time (5) Hypercholesterolemia: (6) Presence of intrathecal pump: (7) Chronic intractable pain: Plan: consult pain management (8) Hypertension: History of Present Illness Chief Complaint: worsening pain Primary Care Provider: Sissy Sandhu MD 87 yo male with PMH described below. Patient was just hospitalized with NSTEMi and HFrEF CHF. Patient was also placed on antibuotics for a possible pneumonia. Patient returns with worsening SOb and increased pain. Patient is unsure if pain pump is working. When patient arrives to the ED, patient is found to be SOB and requiring HIGH flow. Patient is a DNR/DNI. Allergies Allergy/AdvReac Type Severity Reaction Status Date / Time hydrochlorothiazide Allergy Severe Hives Verified 01/29/23 13:57 Iodinated Contrast Media Allergy Severe Convulsions Verified 01/29/23 13:57 adhesive Allergy Intermediate RASH;PULLS Verified 01/29/23 13:57 SKIN OFF levofloxacin Allergy Mild HIVES, Verified 01/29/23 13:57 PRURITIS NSAIDS (Non-Steroidal Allergy Mild Elevated BP Verified 01/29/23 13:57 Anti-Inflamma amiodarone Allergy Unknown RASH Verified 02/11/23 10:26 cephalexin Allergy Unknown AFTER 14 Verified 01/29/23 13:57 DAYS-DEVELOPED GASTRITIS-2017 Aukijdv-FXU-FgF Reductase Allergy Unknown Unknown Verified 01/29/23 13:57 Inhibitor [Uwluvna-Eui-Wtf Reductase Inhibitor] terazosin [From Hytrin] Allergy Unknown Unknown Verified 01/29/23 13:57 doxycycline AdvReac Severe Severe Verified 01/29/23 13:57 stomach pain, headaches Cephalosporins AdvReac Intermediate nausea Verified 01/29/23 13:57 after repeated dose nifedipine AdvReac Intermediate Sick to Verified 01/29/23 13:57 stomach atorvastatin AdvReac Unknown MUSCLE Verified 01/29/23 13:57 ACHES ezetimibe AdvReac stomach Verified 01/29/23 13:57 upset, leg/back pain solifenacin AdvReac urinary Verified 01/29/23 13:57 retention Home Medications Medication Instructions Recorded Confirmed Type bupivacaine HCl 0.25 % (2.5 mg/mL) See Rx Instructions .Route 05/18/19 02/01/23 Rx injection solution .COMPLEX #50 mL guaifenesin 600 mg tablet, 600 mg PO DAILY 01/12/22 02/01/23 History extended release 12 hr (Mucinex) aspirin 81 mg tablet,delayed 81 mg PO DAILY #90 tabs 07/13/22 02/01/23 Rx release (Enteric Coated Aspirin) wheat dextrin 3 gram/3.5 gram oral 1.5 g PO BID PRN .. 07/13/22 02/01/23 History powder packet (Benefiber Clear Sugar Free(dextrin)) glipizide 5 mg tablet, extended 5 mg PO BID #180 tabs 01/16/23 02/01/23 Rx release 24 hr losartan 25 mg tablet 25 mg PO DAILY #180 tabs 01/29/23 02/01/23 Rx prednisone 20 mg tablet 20 mg PO DAILY #5 tabs 01/29/23 02/01/23 Rx Bifidobacterium infantis 4 mg 4 mg PO DAILY 02/01/23 02/01/23 History capsule (Align) magnesium oxide 400 mg PO QPM 02/01/23 02/01/23 History pantoprazole 40 mg tablet,delayed 40 mg PO DAILY 02/01/23 02/01/23 History release (Protonix) Morphine/Clonidine PP [Morphine, 1 pump intrathecal UD ##0 02/09/23 Rx Clonidine Pain Pump] amiodarone 200 mg tablet 200 mg PO QAM #0 tabs 02/09/23 Rx amoxicillin 875 mg-potassium 1 tab PO BIDM #0 tabs 02/09/23 Rx clavulanate 125 mg tablet carvedilol 6.25 mg tablet 6.25 mg PO BIDM #0 tabs 02/09/23 Rx glipizide 2.5 mg tablet, extended 5 mg PO BIDM #0 tabs 02/09/23 Rx release 24 hr latanoprost 0.005 % eye drops 1 drp ophthalmic (eye) HS #0 mL 02/09/23 Rx nitroglycerin 0.4 mg sublingual 0.4 mg sublingual UD PRN #0 tabs 02/09/23 Rx tablet (Nitrostat) polyethylene glycol 3350 17 gram 17 g PO DAILY #0 ea 02/09/23 Rx oral powder packet (Miralax) sacubitril 24 mg-valsartan 26 mg 1 tab PO BID #0 tabs 02/09/23 Rx tablet (Entresto) sennosides 8.6 mg-docusate sodium 1 tab PO BID #0 tabs 02/09/23 Rx 50 mg tablet (Senokot-S) tramadol 50 mg tablet 50 mg PO Q4H PRN #0 tabs 02/09/23 Rx zolpidem 5 mg tablet (Ambien) 5 mg PO HS #6 tabs 02/09/23 Rx Past Med/Surg History Medical History Acute and chronic respiratory failure with hypoxia Cataracts, bilateral Falls Glaucoma History of heart attack History of skin cancer Incisional hernia Lumbar postlaminectomy syndrome Lung nodule Monoclonal B-cell lymphocytosis Postlaminectomy syndrome of lumbosacral region Right lower lobe pneumonia Statin intolerance Tinnitus of both ears Umbilical hernia 2007 Urinary retention Surgical History H/O umbilical hernia repair History of appendectomy 1947 History of back surgery x4 laminectomy 1984; AL Fusion L5-S1 1988; L4, L5 S1 [id number]; History of carpal tunnel surgery History of cataract surgery S/P CABG x 3 S/P triple vessel bypass 2001 Status post left foot surgery Status post right partial knee replacement partial 2005 Surgery, elective Neurol drug infusion implantation of programmable pump 2010 Family History Mother Stroke Coronary heart disease Hypertension Osteoarthritis Rheumatoid arthritis Heart disease Myocardial infarction Father Coronary heart disease Heart disease Sister Familial tremor Grandfather Heart disease Uncle Heart disease Other Family history non-contributory Denies family history of Ovarian cancer Prostate cancer Diabetes Breast cancer Lung cancer Colorectal cancer Social History Smoking Status: Former smoker Tobacco Type: Cigarettes Second Hand Exposure: No; Do You Dip or Chew Tobacco: No; Hx Alcohol Use: Yes Alcohol type: beer Alcohol Intake Frequency: Monthly or Less Hx Substance Use: No Preferred Language: Thai Communication Ability: Unable Visual Impairment: Limited Hearing Ability: Normal Contact Lens Edge Buffer Required: No Beliefs That Will Affect Care: None marital status: Current Living Situation: [facility] Current Living Situation Comment: lives at [facility] current occupational status: retired How many Children do You have: 3 Feels Safe at Home: Yes Childhood Exposure to Second-Hand Smoke: Yes caffeine: Yes Dental Care, Regularly: Yes Physical Activity Frequency: Does not Exercise Seatbelt Use: always Sunscreen Use: Yes Assistive Devices: Glasses and Walker Review of Systems Constitutional: no fever Eyes: no discharge Ear, Nose, Mouth, Throat: no ear pain Respiratory: + dyspnea Cardiovascular: no chest pain Gastrointestinal: no abdominal pain Genitourinary: no dysuria Musculoskeletal: + back pain and + myalgia Integumentary: no acne Neurologic: + gait abnormality Psychiatric: no behavioral changes Endocrine: + fatigue Hematologic / Lymphatic: no easy bleeding Allergy / Immunological: no GI upset with certain foods Physical Exam Physical Exam: General: Oriented to name, place, and year. NAD. Cooperative. HEENT: Atraumatic, normocephalic. Vision/hearing intact. ROCCO. Pulm: B/L rales Symmetrical chest rise. No respiratory distress. Cardiac: Midline sternal scar well healed. RRR, -mrg. Radial pulses intact and symmetrical. Abdominal: Nontender, nondistended, soft. BS present. Ext: No LE edema. Sensation diminished in plantar feet bilaterally, but intact and symmetrical. Ankle dorsiflexion/plantarflexion 4/5 bilaterally, hip flexion 5/5 bilaterally. 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 Radial pulse intact bilaterally Results & Data Results & Data Vital Signs (Past 12 Hours) Vital Signs Temp Pulse Pulse Resp BP Pulse Ox O2 Del Method 02/11/23 07:43 84 20 93 High Flow Nasal Cannula 02/11/23 06:34 75 19 92 High Flow Nasal Cannula 02/11/23 06:34 93/61 L 02/11/23 05:30 82 21 94 High Flow Nasal Cannula 02/11/23 05:30 117/62 02/11/23 04:30 75 19 94 02/11/23 04:00 71 17 97 High Flow Nasal Cannula 02/11/23 04:00 95/55 L 02/11/23 05:23 75 20 94 High Flow Nasal Cannula 02/11/23 04:08 69 02/11/23 03:30 79 19 93 Non-rebreather 02/11/23 03:30 111/65 02/11/23 03:29 81 20 95 Non-rebreather 02/11/23 03:29 107/86 02/11/23 03:00 80 18 98 Non-rebreather 02/11/23 01:39 97 Non-rebreather 02/11/23 01:39 Non-rebreather 02/11/23 01:39 36.5 C 127 H 26 H 114/66 98 Non-rebreather O2 Flow Rate FiO2 02/11/23 07:43 25 45 02/11/23 06:34 02/11/23 06:34 02/11/23 05:30 02/11/23 05:30 02/11/23 04:30 02/11/23 04:00 02/11/23 04:00 02/11/23 05:23 25 60 02/11/23 04:08 02/11/23 03:30 15 02/11/23 03:30 02/11/23 03:29 15 02/11/23 03:29 02/11/23 03:00 15 02/11/23 01:39 15 02/11/23 01:39 02/11/23 01:39 PG Care Time/CCT Total # of Minutes Spent Total Time Spent with Patient: Total time spent is greater than 50% in coordination of care (as documented) at patient's floor/unit and/or counseling patient: Coding Level of Care Code 47680 INT INP/OBS CARE 3/75MIN Diagnoses Acute and chronic respiratory failure with hypoxia J96.21 NSTEMI (non-ST elevated myocardial infarction) I21.4 HFrEF (heart failure with reduced ejection fraction) I50.20 Monoclonal B-cell lymphocytosis D72.820 Hypercholesterolemia E78.00 Presence of intrathecal pump Z96.89 Chronic intractable pain G89.29 Hypertension I10
--- NOTE | 2023-02-11 08:24 | XRay Report ---
XR chest 1V portable CLINICAL HISTORY: Shortness of breath. COMPARISON STUDY: Chest CT July 19, 2020 and chest radiograph February 06, 2023. FINDINGS: There are median sternotomy wires and clips from bypass grafting. Elevation of the right he midiaphragm is unchanged. Interstitial thickening and bilateral opacities are noted. The opacities ar e greater within the left lung. No pneumothorax or pleural effusion is present. Cardiomegaly is uncha nged. Mediastinal contours are stable. IMPRESSION: Interstitial thickening and airspace opacities within the left lung. The findings could reflect asymmetric pulmonary edema or multifocal pneumonia. Radiographic follow-up is recommended. ACT 112: Negative or not required by law. Electronically signed by: Benton Mcgrath M.D. 02/11/2023 8:22 AM
[2023-02-11] MEDS ORDERED: MoRPHine SULFATE 2 MG/ML CARP IV STA (08:55)
[2023-02-11] MEDS ORDERED: HYDROmorphone INJ 0.5 MG/0.5 ML SYR IV STA (10:15)
[2023-02-11] MEDS ORDERED: PANTOprazole 40 MG TAB PO SCH (10:30)
[2023-02-11] MEDS ORDERED: CLONIDINE IT SCH (10:30)
[2023-02-11] MEDS ORDERED: ASPIRIN 81 MG ECTAB PO SCH (10:30)
[2023-02-11] MEDS ORDERED: ADVANCED PROBIOTIC 1250 MG CAPSULE PO SCH (10:30)
[2023-02-11] MEDS ORDERED: MORPHINE IT SCH (10:30)
[2023-02-11] MEDS ORDERED: guaiFENesin 600 MG TABCR PO SCH (10:30)
[2023-02-11] MEDS: AMIODARONE 200 MG TAB PO SCH (11:42)
--- NOTE | 2023-02-11 11:49 | Electrocardiogram Report ---
Test Reason : Blood Pressure : / mmHG Vent. Rate : 082 BPM Atrial Rate : 082 BPM P-R Int : 168 ms QRS Dur : 092 ms QT Int : 416 ms P-R-T Axes : 009 -38 191 degrees QTc Int : 486 ms Normal sinus rhythm Left axis deviation Poor R wave progression, consider anterior [place] vs. lead placement vs. LVH Abnormal ECG When compared with ECG of 04-FEB-2023 14:25, NV interval has decreased Nonspecific T wave abnormality now evident in Inferior leads QT has shortened Confirmed by Robe Lambert ([id number]) on 02/11/2023 11:49:37 AM Referred By: Vazquez hopkins [facility] Confirmed By:Robe Lambert
[2023-02-11] MEDS ORDERED: HYDROmorphone INJ 0.5 MG/0.5 ML SYR IV PRN ×2 (12:26→12:31)
[2023-02-11] MEDS ORDERED: DEXTROSE 50% 50 ML SYRINGE IV PRN (12:30)
[2023-02-11] MEDS ORDERED: GLUCAGON FOR INJ 1 MG VIAL IM PRN (12:30)
[2023-02-11] MEDS ORDERED: GLUCOSE 10 TAB/TUBE PO PRN (12:30)
[2023-02-11] MEDS ORDERED: CARBOHYDRATES FOR HYPOGLYCEMIA PO PRN (12:30)
[2023-02-11] MEDS ORDERED: GLUCOSE 40% GEL 15 GM TUBE PO PRN (12:30)
--- NOTE | 2023-02-11 13:29 | Palliative Care Consultation ---
Date of Consultation February 11, 2023 Assessment & Plan (1) Pain: Multiple sources of pain with history of chronic low back pain Pain management has been consulted to evaluate pump No relief with morphine and he has had progressive decline in renal function with GFR of 32.7. He is on high flow O2 with acute respiratory failure and bilateral lung consolidation. I talked with Mr Wiggins and his family about possible hypotension or increased hypoxia with opioid use. He says repeatedly that he is ready to and that he wants relief of his pain, regardless of the potential risks. Order placed for hydromorphone 0.5mg IV with good result for pain management. (2) Anxiety: Associated with severe pain, though his family notes that he does have problems with anxiety. Monitor with better pain control. (3) Palliative care encounter: Mr. Wiggins said multiple times that he didn't want to live anymore with the pain. I talked with him about whether he would feel differently if the pain were better controlled and he told me that he might. He has been resting c omfortably after dose of hydromorphone. I met with his and daughter at bedside. His told me that they have discussed goals of care multiple times in the past and that he has been clear that if he were no longer able to have good quality of life, he would not want life prolonging measures. He is currently DNR/DNI. We talked about what quality of life would look like for him and she told me that they enjoyed entertaining, having dinner with friends or even being able to go out to dinner together and he is not able to do any of these things now. She has seen that each hospitalization sets back his functional status and realizes that he is not likely to improve. We discussed option for comfort focused care versus continuing current care with antibiotics and high flow O2. Comfort is their highest priority but for the time being, they would like to continue antibiotics and monitoring with use of opioids as needed to manage his pain. They would not want escalation of care, pressors, bipap if he were to decline. If it were necessary to choose between disease management and pain management, they would want focus on pain and symptom management. They asked about hospice care. We discussed concern that if focus of care was comfort only, he would likely not be stable for transfer back to [facility] on hospice. However, we will monitor this. I met with Mr. Wiggins and family at bedside later in the day. He was awake and again complaining of pain. He and family again stated their preference for focus on comfort and symptom management. I talked with Mr. Wiggins about his poor prognosis with treatment and reviewed our earlier discussion about his quality of life. He tells me that he is ready to when it is his time but he wants to be comfortable until then. They have decided that they want focus of care to be comfort and symptom management. We discussed routine dosing of hydromorphone with prn dosing available and reassessing medications to focus on those that help him feel better. They are in agreement. Discussed with RN and Dr. Mckeon. History of Present Illness Reason for Consultation: goals of care Requesting Physician: Dr. Mckeon Attending Physician: London Mckeon History of Present Illness 87 yo gentleman with previous history of CAD with history of CABG x 3 in 2001. He was admitted earlier this month with NSTEMI and cardiac catheterization showed occlusion of circumflex and RCA grafts. He has 100% stenosis of proximal LAD with patent graft. Echocardiogram done on previous admission shows akinesis of inferior wall, inferolateral wall, anterolateral wall and anterior wall with overall global hypokinesis and EF of 25-30%. He has chronic low back pain with multiple surgeries and his pain is managed with an intrathecal pump. He was seen by pain management on previous admission to refill and check pump. He had been discharged back to [facility] and was supposed to meet with someone to discuss hospice admission today but pain became progressively worse and he was agreeable to hospitalization. At the time of my visit, he is restless and complaining of severe pain all over. He did receive 0.5mg IV morphine earlier this morning with no relief. His reports that he had received roxanol at [facility] last night as well as tramadol with no relief. He complains of pain in his arms, abdomen and upper and lower back. He describes most severe pain in his lower back. Allergies Allergy/AdvReac Type Severity Reaction Status Date / Time hydrochlorothiazide Allergy Severe Hives Verified 01/29/23 13:57 Iodinated Contrast Media Allergy Severe Convulsions Verified 01/29/23 13:57 adhesive Allergy Intermediate RASH;PULLS Verified 01/29/23 13:57 SKIN OFF levofloxacin Allergy Mild HIVES, Verified 01/29/23 13:57 PRURITIS NSAIDS (Non-Steroidal Allergy Mild Elevated BP Verified 01/29/23 13:57 Anti-Inflamma amiodarone Allergy Unknown RASH Verified 02/11/23 10:26 cephalexin Allergy Unknown AFTER 14 Verified 01/29/23 13:57 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 Xoeyewr-RNE-AvA Reductase Allergy Unknown Unknown Verified 01/29/23 13:57 Inhibitor [Flfbqir-Gfb-Kib Reductase Inhibitor] terazosin [From Hytrin] Allergy Unknown Unknown Verified 01/29/23 13:57 doxycycline AdvReac Severe Severe Verified 01/29/23 13:57 stomach pain, headaches Cephalosporins AdvReac Intermediate nausea Verified 01/29/23 13:57 after repeated dose nifedipine AdvReac Intermediate Sick to Verified 01/29/23 13:57 stomach atorvastatin AdvReac Unknown MUSCLE Verified 01/29/23 13:57 ACHES ezetimibe AdvReac stomach Verified 01/29/23 13:57 upset, leg/back pain solifenacin AdvReac urinary Verified 01/29/23 13:57 retention Home Medications Medication Instructions Recorded Confirmed Type bupivacaine HCl 0.25 % (2.5 mg/mL) See Rx Instructions .Route 05/18/19 02/01/23 Rx injection solution .COMPLEX #50 mL guaifenesin 600 mg tablet, 600 mg PO DAILY 01/12/22 02/01/23 History extended release 12 hr (Mucinex) aspirin 81 mg tablet,delayed 81 mg PO DAILY #90 tabs 07/13/22 02/01/23 Rx release (Enteric Coated Aspirin) wheat dextrin 3 gram/3.5 gram oral 1.5 g PO BID PRN .. 07/13/22 02/01/23 History powder packet (Benefiber Clear Sugar Free(dextrin)) glipizide 5 mg tablet, extended 5 mg PO BID #180 tabs 01/16/23 02/01/23 Rx release 24 hr losartan 25 mg tablet 25 mg PO DAILY #180 tabs 01/29/23 02/01/23 Rx prednisone 20 mg tablet 20 mg PO DAILY #5 tabs 01/29/23 02/01/23 Rx Bifidobacterium infantis 4 mg 4 mg PO DAILY 02/01/23 02/01/23 History capsule (Align) magnesium oxide 400 mg PO QPM 02/01/23 02/01/23 History pantoprazole 40 mg tablet,delayed 40 mg PO DAILY 02/01/23 02/01/23 History release (Protonix) Morphine/Clonidine PP [Morphine, 1 pump intrathecal UD ##0 02/09/23 Rx Clonidine Pain Pump] amiodarone 200 mg tablet 200 mg PO QAM #0 tabs 02/09/23 Rx amoxicillin 875 mg-potassium 1 tab PO BIDM #0 tabs 02/09/23 Rx clavulanate 125 mg tablet carvedilol 6.25 mg tablet 6.25 mg PO BIDM #0 tabs 02/09/23 Rx glipizide 2.5 mg tablet, extended 5 mg PO BIDM #0 tabs 02/09/23 Rx release 24 hr latanoprost 0.005 % eye drops 1 drp ophthalmic (eye) HS #0 mL 02/09/23 Rx nitroglycerin 0.4 mg sublingual 0.4 mg sublingual UD PRN #0 tabs 02/09/23 Rx tablet (Nitrostat) polyethylene glycol 3350 17 gram 17 g PO DAILY #0 ea 02/09/23 Rx oral powder packet (Miralax) sacubitril 24 mg-valsartan 26 mg 1 tab PO BID #0 tabs 02/09/23 Rx tablet (Entresto) sennosides 8.6 mg-docusate sodium 1 tab PO BID #0 tabs 02/09/23 Rx 50 mg tablet (Senokot-S) tramadol 50 mg tablet 50 mg PO Q4H PRN #0 tabs 02/09/23 Rx zolpidem 5 mg tablet (Ambien) 5 mg PO HS #6 tabs 02/09/23 Rx Patient History Medical History Acute and chronic respiratory failure with hypoxia Cataracts, bilateral Falls Glaucoma History of heart attack History of skin cancer Incisional hernia Lumbar postlaminectomy syndrome Lung nodule Monoclonal B-cell lymphocytosis Postlaminectomy syndrome of lumbosacral region Right lower lobe pneumonia Statin intolerance Tinnitus of both ears Umbilical hernia 2007 Urinary retention Surgical History H/O umbilical hernia repair History of appendectomy 1947 History of back surgery x4 laminectomy 1984; AL Fusion L5-S1 1988; L4, L5 S1 [id number]; History of carpal tunnel surgery History of cataract surgery S/P CABG x 3 S/P triple vessel bypass 2002 Status post left foot surgery Status post right partial knee replacement partial 2005 Surgery, elective Neurol drug infusion implantation of programmable pump 2010 Family History Mother Stroke Coronary heart disease Hypertension Osteoarthritis Rheumatoid arthritis Heart disease Myocardial infarction Father Coronary heart disease Heart disease Sister Familial tremor Grandfather Heart disease Uncle Heart disease Other Family history non-contributory Denies family history of Ovarian cancer Prostate cancer Diabetes Breast cancer Lung cancer Colorectal cancer Social History Smoking Status: Former smoker Tobacco Type: Cigarettes Second Hand Exposure: No; Do You Dip or Chew Tobacco: No; Hx Alcohol Use: Yes Alcohol type: beer Alcohol Intake Frequency: Monthly or Less Hx Substance Use: No Preferred Language: Welsh Communication Ability: Effective Visual Impairment: Limited Hearing Ability: Normal Cumulative Effects Analyst Required: No Beliefs That Will Affect Care: None marital status: Current Living Situation: [facility] Personal Care Facility Current Living Situation Comment: lives at [facility] current occupational status: retired How many Children do You have: 3 Other Information That Helps Us Care for You: No Feels Safe at Home: Yes Safety Concerns: Feels Safe At This Time Childhood Exposure to Second-Hand Smoke: Yes caffeine: Yes Dental Care, Regularly: Yes Physical Activity Frequency: Does not Exercise Seatbelt Use: always Sunscreen Use: Yes Assistive Devices: Glasses and Walker Review of Systems Review of Systems: ESAS Pain 3/3 Dyspnea 0/3 Anxiety 2/3 Drowsiness 0/3 Physical Exam Constitutional: + ill appearing; + uncomfortable ENMT: Mouth: + dry oral mucous membranes Respiratory: normal respiratory effort; no labored breathing Cardiovascular: Rate/Rhythm: regular rate and regular rhythm Skin: warm and dry Psychiatric: Affect: + anxious affect Results & Data Vital Signs (Past 12 Hours) Vital Signs Temp Pulse Pulse Resp BP Pulse Ox O2 Del Method 02/11/23 11:00 97.9 F 02/11/23 10:30 Oxymask 02/11/23 11:46 80 19 95/59 L 91 Oxymask 02/11/23 11:41 78 20 96/61 L 97 Oxymask 02/11/23 11:33 70 16 80/53 L 94 Oxymask 02/11/23 11:30 72 16 87/55 L 94 Oxymask 02/11/23 11:15 73 16 88/52 L 92 Oxymask 02/11/23 11:05 75 16 91/55 L 90 Oxymask 02/11/23 11:04 72 16 88/61 L 89 L Oxymask 02/11/23 11:00 74 19 88/56 L 90 Oxymask 02/11/23 10:36 118/76 02/11/23 10:49 18 96 Oxymask 02/11/23 10:00 79 22 117/66 91 High Flow Nasal Cannula 02/11/23 09:30 19 96/63 L 92 High Flow Nasal Cannula 02/11/23 09:00 26 H 106/72 90 High Flow Nasal Cannula 02/11/23 08:30 22 103/76 91 High Flow Nasal Cannula 02/11/23 09:13 81 02/11/23 08:00 22 112/66 92 High Flow Nasal Cannula 02/11/23 07:30 76 17 111/63 97 High Flow Nasal Cannula 02/11/23 07:00 72 19 96/57 L 94 High Flow Nasal Cannula 02/11/23 07:43 84 20 93 High Flow Nasal Cannula 02/11/23 06:34 75 19 92 High Flow Nasal Cannula 02/11/23 06:34 93/61 L 02/11/23 05:30 82 21 94 High Flow Nasal Cannula 02/11/23 05:30 117/62 02/11/23 04:30 75 19 94 02/11/23 04:00 71 17 97 High Flow Nasal Cannula 02/11/23 04:00 95/55 L 02/11/23 05:23 75 20 94 High Flow Nasal Cannula 02/11/23 04:08 69 02/11/23 03:30 79 19 93 Non-rebreather 02/11/23 03:30 111/65 02/11/23 03:29 81 20 95 Non-rebreather 02/11/23 03:29 107/86 02/11/23 03:00 80 18 98 Non-rebreather 02/11/23 01:39 97 Non-rebreather 02/11/23 01:39 Non-rebreather 02/11/23 01:39 97.7 F 127 H 26 H 114/66 98 Non-rebreather O2 Flow Rate FiO2 02/11/23 11:00 02/11/23 10:30 5 02/11/23 11:46 10 02/11/23 11:41 10 02/11/23 11:33 10 02/11/23 11:30 10 02/11/23 11:15 10 02/11/23 11:05 10 02/11/23 11:04 5 02/11/23 11:00 5 02/11/23 10:36 02/11/23 10:49 5 02/11/23 10:00 02/11/23 09:30 02/11/23 09:00 02/11/23 08:30 02/11/23 09:13 02/11/23 08:00 02/11/23 07:30 02/11/23 07:00 02/11/23 07:43 25 45 02/11/23 06:34 02/11/23 06:34 02/11/23 05:30 02/11/23 05:30 02/11/23 04:30 02/11/23 04:00 02/11/23 04:00 02/11/23 05:23 25 60 02/11/23 04:08 02/11/23 03:30 15 02/11/23 03:30 02/11/23 03:29 15 02/11/23 03:29 02/11/23 03:00 15 02/11/23 01:39 15 02/11/23 01:39 02/11/23 01:39 PG Care Time/CCT Total # of Minutes Spent Total Time Spent: 90 Total Time Spent with Patient: Total time spent is greater than 50% in coordination of care (as documented) at patient's floor/unit and/or counseling patient:`[id number], [id number] Symptom management, goals of care, hospice, prognosis, patient and family education and support Coding Level of Care Code 15223 INT INP/OBS CARE 3/75MIN Diagnoses Pain R52 Anxiety F41.9 Palliative care encounter Z51.5
[2023-02-11] MEDS ORDERED: HEPARIN SOD 5,000 UNIT/0.5 ML VIAL SQ SCH (14:00)
[2023-02-11] MEDS ORDERED: ONDANSETRON INJ 2 MG/ML 2 ML VIAL IV PRN (15:28)
[2023-02-11] MEDS ORDERED: ONDANSETRON 4 MG OD TAB SL PRN (15:28)
[2023-02-11] MEDS ORDERED: HYDROmorphone INJ 0.5 MG/0.5 ML SYR ONE (15:37)
[2023-02-11] MEDS: HYDROmorphone INJ 0.5 MG/0.5 ML SYR IV SCH ×3 (15:47→23:04)
[2023-02-11] MEDS ORDERED: CEFEPIME 2,000 MG in SYRINGE 0 ML IV SCH (16:00)
[2023-02-11] MEDS ORDERED: INSULIN ASPART PER UNIT CHARGE SC SCH (16:30)
[2023-02-11] MEDS: HYDROmorphone INJ 0.5 MG/0.5 ML SYR IV PRN (16:40)
[2023-02-11] MEDS: carvediloL 6.25 MG TAB PO SCH (16:55)
[2023-02-11] MEDS: LORazepam 2 MG/1 ML VIAL IV PRN (17:31)
[2023-02-11] MEDS ORDERED: ZOLPIDEM TARTRATE 5 MG TAB PO SCH (21:00)
[2023-02-12] MEDS: HYDROmorphone INJ 0.5 MG/0.5 ML SYR IV PRN ×2 (02:28→06:04)
[2023-02-12] MEDS: HYDROmorphone INJ 0.5 MG/0.5 ML SYR IV SCH ×3 (03:12→11:41)
[2023-02-12] MEDS: LORazepam 2 MG/1 ML VIAL IV PRN (03:13)
[2023-02-12] MEDS: AMIODARONE 200 MG TAB PO SCH (08:58)
[2023-02-12] MEDS: carvediloL 6.25 MG TAB PO SCH ×2 (08:58→16:29)
--- NOTE | 2023-02-12 09:04 | Pain Management Consultation ---
Date of Consultation February 12, 2023 Assessment & Plan (1) Postlaminectomy syndrome of lumbosacral region: (2) Presence of intrathecal pump: (3) Chronic intractable pain: (4) CAD (coronary artery disease): Associated angina: without angina Coronary Disease-Associated Artery/Lesion type: [place] artery [place] vs. transplanted heart: [place] heart Qualified Code(s): I25.10 - Atherosclerotic heart disease of [place] coronary artery without angina pectoris (5) Acute and chronic respiratory failure with hypoxia: Plan Pain pump was interrogated today and found to be properly functioning. It is felt that the patient is currently receiving adequate pain control with the pump, as there are scheduled and PRN hydromorphone doses currently ordered, and these together are making the patient very somnolent. The patient may also be considered for receiving a hydromorphone infusion with PRN bolus dosing. 1. With the patient being transitioned to palliative care with the primary goal of comfort, we will maintain the simple continuous pump rates as they had previously been set on 02/07/23. No changes have been recommended or made. * Morphine 3.308 mg/day (0.138 mg/hr) * Clonidine 154.40 mcg/day (6.43 mcg/hr) * Bupivacaine 0.4411 mg/day (0.0184 mg/hr 2. The low reservoir alarm date is 04/25/2023. * Pending patient's condition and hospital course, we will communicate with [facility] about resuming refilling of the pump in the outpatient setting as needed. 3. Ongoing medical management per the primary service. History of Present Illness Reason for Consultation: check pain pump Attending Physician: London Mckeon History of Present Illness Patient is an 87-year-old male who is well-known to the [facility] pain clinic due to his history of chronic intractable low back pain and lower extremity pain secondary to lumbar postlaminectomy syndrome which has required implantation of intrathecal pump and catheter delivery system. The pump is currently managed by our office, but refilled routinely by [facility] in the outpatient setting. The patient undergoes evaluation in the office once per year for ongoing monitoring and management. Patient was recently admitted due to CAD with NSTEMI [place] who underwent cardiac catheterization. Medical management was recommended. Recently, the patient's intrathecal alarm for low reservoir volume was 02/10/2023. He did have a refill procedure performed last week by our service on 02/07/2023. Patient was discharged from [facility] on 02/09/2023, but returned to the ER via EMS on 02/11/2023 due to shortness of breath. The patient was reporting worsening of shortness of breath for 2 to 3 days, with accompanying chest discomfort, prior to coming back to the hospital. Patient has been known to be a bit lethargic, somnolent, and slow to respond lately, and so the most recent nursing notes were reviewed. These indicate that the patient has been able to hold a conversation, and that he could voice whenever he was in pain. When the patient was seen during his last admission, he was indicating that his pain was adequately controlled with his then current intrathecal dose and desired no change. As the patient was sleeping through most of our conversation this morning, and seemed quite lethargic/somnolent, he would indicate that his pain is "so-so" when asked. He localized the majority of his pain to his low back. He was specifically asked if he felt his pain pump was adequately controlling his pain, and he seemed to indicate that it was. Patient voiced understanding that he knows he is also receiving IV pain medicine on a scheduled basis while he is in the hospital. He was recently placed onto palliative care and is DNR; the patient's/family's desire and focus is on comfort care > disease management. Patient was unable to really answer any further questions this morning, and he did not indicate that he had any more questions. Allergies Allergy/AdvReac Type Severity Reaction Status Date / Time hydrochlorothiazide Allergy Severe Hives Verified 01/29/23 13:57 Iodinated Contrast Media Allergy Severe Convulsions Verified 01/29/23 13:57 adhesive Allergy Intermediate RASH;PULLS Verified 01/29/23 13:57 SKIN OFF levofloxacin Allergy Mild HIVES, Verified 01/29/23 13:57 PRURITIS NSAIDS (Non-Steroidal Allergy Mild Elevated BP Verified 01/29/23 13:57 Anti-Inflamma amiodarone Allergy Unknown RASH Verified 02/11/23 10:26 cephalexin Allergy Unknown AFTER 14 Verified 01/29/23 13:57 DAYS-DEVELOPED GASTRITIS-2017 Eusvxif-VZN-RcB Reductase Allergy Unknown Unknown Verified 01/29/23 13:57 Inhibitor [Ijuukbp-Yth-Tct Reductase Inhibitor] terazosin [From Hytrin] Allergy Unknown Unknown Verified 01/29/23 13:57 doxycycline AdvReac Severe Severe Verified 01/29/23 13:57 stomach pain, headaches Cephalosporins AdvReac Intermediate nausea Verified 01/29/23 13:57 after repeated dose nifedipine AdvReac Intermediate Sick to Verified 01/29/23 13:57 stomach atorvastatin AdvReac Unknown MUSCLE Verified 01/29/23 13:57 ACHES ezetimibe AdvReac stomach Verified 01/29/23 13:57 upset, leg/back pain solifenacin AdvReac urinary Verified 01/29/23 13:57 retention Home Medications Medication Instructions Recorded Confirmed Type bupivacaine HCl 0.25 % (2.5 mg/mL) See Rx Instructions .Route 05/18/19 02/01/23 Rx injection solution .COMPLEX #50 mL guaifenesin 600 mg tablet, 600 mg PO DAILY 01/12/22 02/01/23 History extended release 12 hr (Mucinex) aspirin 81 mg tablet,delayed 81 mg PO DAILY #90 tabs 07/13/22 02/01/23 Rx release (Enteric Coated Aspirin) wheat dextrin 3 gram/3.5 gram oral 1.5 g PO BID PRN .. 07/13/22 02/01/23 History powder packet (Benefiber Clear Sugar Free(dextrin)) glipizide 5 mg tablet, extended 5 mg PO BID #180 tabs 01/16/23 02/01/23 Rx release 24 hr losartan 25 mg tablet 25 mg PO DAILY #180 tabs 01/29/23 02/01/23 Rx prednisone 20 mg tablet 20 mg PO DAILY #5 tabs 01/29/23 02/01/23 Rx Bifidobacterium infantis 4 mg 4 mg PO DAILY 02/01/23 02/01/23 History capsule (Align) magnesium oxide 400 mg PO QPM 02/01/23 02/01/23 History pantoprazole 40 mg tablet,delayed 40 mg PO DAILY 02/01/23 02/01/23 History release (Protonix) Morphine/Clonidine PP [Morphine, 1 pump intrathecal UD ##0 02/09/23 Rx Clonidine Pain Pump] amiodarone 200 mg tablet 200 mg PO QAM #0 tabs 02/09/23 Rx amoxicillin 875 mg-potassium 1 tab PO BIDM #0 tabs 02/09/23 Rx clavulanate 125 mg tablet carvedilol 6.25 mg tablet 6.25 mg PO BIDM #0 tabs 02/09/23 Rx glipizide 2.5 mg tablet, extended 5 mg PO BIDM #0 tabs 02/09/23 Rx release 24 hr latanoprost 0.005 % eye drops 1 drp ophthalmic (eye) HS #0 mL 02/09/23 Rx nitroglycerin 0.4 mg sublingual 0.4 mg sublingual UD PRN #0 tabs 02/09/23 Rx tablet (Nitrostat) polyethylene glycol 3350 17 gram 17 g PO DAILY #0 ea 02/09/23 Rx oral powder packet (Miralax) sacubitril 24 mg-valsartan 26 mg 1 tab PO BID #0 tabs 02/09/23 Rx tablet (Entresto) sennosides 8.6 mg-docusate sodium 1 tab PO BID #0 tabs 02/09/23 Rx 50 mg tablet (Senokot-S) tramadol 50 mg tablet 50 mg PO Q4H PRN #0 tabs 02/09/23 Rx zolpidem 5 mg tablet (Ambien) 5 mg PO HS #6 tabs 02/09/23 Rx Pain History Chief Complaint Chief Complaint: low back pain, relatively well-controlled Current Therapy Current Medication Therapy: Opiods Patient History Medical History Acute and chronic respiratory failure with hypoxia Cataracts, bilateral Falls Glaucoma History of heart attack History of skin cancer Incisional hernia Lumbar postlaminectomy syndrome Lung nodule Monoclonal B-cell lymphocytosis Postlaminectomy syndrome of lumbosacral region Right lower lobe pneumonia Statin intolerance Tinnitus of both ears Umbilical hernia 2006 Urinary retention Surgical History H/O umbilical hernia repair History of appendectomy 1947 History of back surgery x4 laminectomy 1984; AL Fusion L5-S1 1988; L4, L5 S1 [id number]; History of carpal tunnel surgery History of cataract surgery S/P CABG x 3 S/P triple vessel bypass 2001 Status post left foot surgery Status post right partial knee replacement partial 2005 Surgery, elective Neurol drug infusion implantation of programmable pump 2010 Family History Mother Stroke Coronary heart disease Hypertension Osteoarthritis Rheumatoid arthritis Heart disease Myocardial infarction Father Coronary heart disease Heart disease Sister Familial tremor Grandfather Heart disease Uncle Heart disease Other Family history non-contributory Denies family history of Ovarian cancer Prostate cancer Diabetes Breast cancer Lung cancer Colorectal cancer Social History Smoking Status: Former smoker Tobacco Type: Cigarettes Second Hand Exposure: No; Do You Dip or Chew Tobacco: No; Hx Alcohol Use: Yes Alcohol type: beer Alcohol Intake Frequency: Monthly or L ess Hx Substance Use: No Preferred Language: Setswana Communication Ability: Effective Visual Impairment: Limited Hearing Ability: Normal Filler Spreader Required: No Beliefs That Will Affect Care: None marital status: Current Living Situation: [facility] Current Living Situation Comment: lives at [facility] current occupational status: retired How many Children do You have: 3 Feels Safe at Home: Yes Childhood Exposure to Second-Hand Smoke: Yes caffeine: Yes Dental Care, Regularly: Yes Physical Activity Frequency: Does not Exercise Seatbelt Use: always Sunscreen Use: Yes Assistive Devices: Glasses and Walker Physical Exam Physical Exam: GENERAL: Sleeping; mildly difficult to arouse. NAD. HEAD/FACE: Normocephalic and atraumatic. EYES: keeps mostly closed. ENT: Nose without bleeding or discharge. NECK: No swelling or masses noted. RESPIRATORY: Patient with mildly labored breathing. No signs of respiratory distress. CHEST/AXILLA: Chest movement symmetrical. No deformities noted. CARDIOVASCULAR: Pre-tibial pitting edema noted. BACK: Voices pain to low back. SKIN: [place], warm and dry. No rash noted. MS/EXTREMITY: Mild swelling, no deformities. NEURO: Unable to assess appropriately. PSYCH: Pleasant, affect is calm.
--- NOTE | 2023-02-12 10:05 | Palliative Care Progress Note ---
Date of Service February 12, 2023 Assessment & Plan (1) Pain: Plan: Complains of pain in multiple areas Pump functioning per Pain Management Later in morning he is more restless and asking to . Discussed with Basilio and his . At this point, his pain would be better managed with hydromorphone infusion with prn bolus dosing. We discussed likely sedation and what to expect. He and his are both in agreement that they would prefer that he be sleepy rather than in pain. Bolus dose of hydromorphone 0.5mg now Order placed for hydromorphone infusion. Discussed with RN (2) Anxiety: Plan: This is a chronic problem for him Significant contributor to his discomfort He did do better after speaking with his on the phone this morning. With initiation of hydromorphone infusion, will continue lorazepam as needed but low threshold for routine dosing. (3) Dyspnea: Plan: With acute hypoxic respiratory failure Continue opioids for relief of air hunger Discussed with his . Air hunger can be relieved with opioid infusion. Will wean O2 which is currently titrated for O2 saturation rather than comfort. (4) Palliative care encounter: Plan: Basilio is restless and saying that he wants to today. We have had discussions about managing his symptoms and supporting him until his dying time but not hastening his dying time. We discussed plans for medication adjustment to better control his pain and anxiety. He and his family are all in agreement that they want whatever medication is necessary for his comfort regardless of sedation. Discussed with Dr. Mckeon. Admission and Anticipated Discharge Date Admission Date: February 11, 2023 Subjective Some restlessness overnight. Ate some breakfast this morning. Has been anxious at times but resting comfortably now. He has had prn hydromorphone x 3 since started yesterday afternoon. Review of Systems Review of Systems: Unobtainable due to reduced consciousness Physical Exam Constitutional: + ill appearing; no acute distress Respiratory: normal respiratory effort; no labored breathing remains on high flow O2 at 8 L no audible tracheal secretions Cardiovascular: Rate/Rhythm: + irregularly irregular Skin: warm and dry Neurologic: + not awake Results & Data Vital Signs (Past 12 Hours) Vital Signs Temp Pulse Resp BP Pulse Ox O2 Del Method O2 Flow Rate 02/12/23 07:21 97.9 F 95 H 28 H 118/73 87 L High Flow Nasal Cannula 8 PG Care Time/CCT Total # of Minutes Spent Total Time Spent with Patient: Total time spent is greater than 50% in coordination of care (as documented) at patient's floor/unit and/or counseling patient: Coding Level of Care Code 59801 SUB INP/OBS CARE 3/50MIN Diagnoses Pain R52 Anxiety F41.9 Dyspnea R06.00 Palliative care encounter Z51.5
[2023-02-12] MEDS: HYDROmorphone/NSS 100 MG/100 ML BAG IV SCH ×4 (13:39→21:41)
[2023-02-12] MEDS: LORazepam 2 MG/1 ML VIAL IV SCH ×3 (14:59→21:45)
[2023-02-12] MEDS ORDERED: HYDROmorphone INJ 0.5 MG/0.5 ML SYR IV PRN (20:18)
--- NOTE | 2023-02-12 21:31 | Hospitalist Progress Note ---
Date of Service February 12, 2023 Assessment & Plan (1) Acute and chronic respiratory failure with hypoxia: Plan: 87 yo male with PMH described above. Admit to PCU. Patient has bilateral infiltrates complicated by elevated WBC and increasing procal. Difficult to state that this is truly an infection as NANCY could affect the procal. WBC could be from monoclonal B cell lymphocytosis and use of prednisone. HOwever, given that WBC was rising, and there is bilateral infiltrates, will treat for infectious causes. Will slowly try to diurese patient without affecting his BP. Patient was later converted to comfort measures on day of admission after discussion with palliative care provider. Family and patient agreeable. placed on dilaudid drip, and will order PRN dilaudid as patient has had intermittent bouts of acute pain on 02/12 (2) NSTEMI (non-ST elevated myocardial infarction): Plan: recent admission with above diagnosis, discharged on 02/09 Echo with evidence of severe wall motion abnormalities in the inferior wall, inferolateral wall, anterolateral wall, base and mid anterior wall. Treated with heparin gtt. Heart catheterization completed on February 04 revealed 2 obstructed saphenous vein grafts. The LARIOS to the LAD is patent. Medical management recommended. Amiodarone has been restarted on February 05, per cardiology recommendations. (3) HFrEF (heart failure with reduced ejection fraction): Plan: ( Echocardiogram 02/01/23 with mildly dilated LV with severely reduced EF 25-30%. Possible excerbation. (4) Monoclonal B-cell lymphocytosis: Plan: Stable. No acute intervention necessary at this time (5) Hypercholesterolemia: (6) Presence of intrathecal pump: Plan: consult pain management (7) Chronic intractable pain: (8) Hypertension: Admission and Anticipated Discharge Date Admission Date: February 11, 2023 Subjective Patient is more comfortable. Family at bedside. Asking for additional pain meds as he has been intermittently restless. Review of Systems Review of Systems: All systems reviewed & are unremarkable except as noted in HPI & below Physical Exam Physical Exam: Lying in bed resting. PG Care Time/CCT Total # of Minutes Spent Total Time Spent with Patient: Total time spent is greater than 50% in coordination of care (as documented) at patient's floor/unit and/or counseling patient: Coding Level of Care Code 80846 SUB INP/OBS CARE 2/35MIN Diagnoses Acute and chronic respiratory failure with hypoxia J96.21 NSTEMI (non-ST elevated myocardial infarction) I21.4 HFrEF (heart failure with reduced ejection fraction) I50.20 Monoclonal B-cell lymphocytosis D72.820 Hypercholesterolemia E78.00 Presence of intrathecal pump Z96.89 Chronic intractable pain G89.29 Hypertension I10
[2023-02-13] MEDS: GLYCOPYRROLATE 0.2 MG/ML VIAL IV PRN ×4 (01:21→21:42)
[2023-02-13] MEDS: LORazepam 2 MG/1 ML VIAL IV SCH ×9 (01:39→21:42)
[2023-02-13] MEDS: HYDROmorphone BOLUS from BAG IV PRN ×2 (02:07→02:39)
[2023-02-13] MEDS ORDERED: LORazepam 2 MG/1 ML VIAL IV SCH (02:31)
[2023-02-13] MEDS ORDERED: HYDROmorphone BOLUS from BAG IV PRN (02:47)
[2023-02-13] MEDS ORDERED: HYDROmorphone INJ 1 MG/ML SYRINGE IV PRN (02:58)
[2023-02-13] MEDS: AMIODARONE 200 MG TAB PO SCH (08:46)
[2023-02-13] MEDS: carvediloL 6.25 MG TAB PO SCH ×2 (08:46→17:46)
--- NOTE | 2023-02-13 23:06 | Hospitalist Progress Note ---
Date of Service February 13, 2023 Assessment & Plan (1) Acute and chronic respiratory failure with hypoxia: Plan: 87 yo male with PMH described above. Admit to PCU. Patient has bilateral infiltrates complicated by elevated WBC and increasing procal. Difficult to state that this is truly an infection as NANCY could affect the procal. WBC could be from monoclonal B cell lymphocytosis and use of prednisone. HOwever, given that WBC was rising, and there is bilateral infiltrates, will treat for infectious causes. Will slowly try to diurese patient without affecting his BP. Patient was later converted to comfort measures on day of admission after discussion with palliative care provider. Family and patient agreeable. placed on dilaudid drip, and will order PRN dilaudid as patient has had intermittent bouts of acute pain on 02/12 On 02/13, patient appears more comfortable. (2) NSTEMI (non-ST elevated myocardial infarction): Plan: recent admission with above diagnosis, discharged on 02/09 Echo with evidence of severe wall motion abnormalities in the inferior wall, inferolateral wall, anterolateral wall, base and mid anterior wall. Treated with heparin gtt. Heart catheterization completed on February 04 revealed 2 obstructed saphenous vein grafts. The ALRIOS to the LAD is patent. Medical management recommended. Amiodarone has been restarted on February 05, per cardiology recommendations. (3) HFrEF (heart failure with reduced ejection fraction): Plan: ( Echocardiogram 02/01/23 with mildly dilated LV with severely reduced EF 25-30%. Possible excerbation. (4) Monoclonal B-cell lymphocytosis: Plan: Stable. No acute intervention necessary at this time (5) Hypercholesterolemia: (6) Presence of intrathecal pump: Plan: consult pain management (7) Chronic intractable pain: (8) Hypertension: Admission and Anticipated Discharge Date Admission Date: February 11, 2023 Subjective Patient is resting, Review of Systems Review of Systems: All systems reviewed & are unremarkable except as noted in HPI & below Physical Exam Physical Exam: Lying in bed resting. Results & Data Results & Data Vital Signs (Past 12 Hours) Vital Signs Temp Pulse Resp BP Pulse Ox O2 Del Method O2 Flow Rate 02/13/23 12:30 37.2 C 107 H 23 84/56 L 82 L Nasal Cannula 4 PG Care Time/CCT Total # of Minutes Spent Total Time Spent with Patient: Total time spent is greater than 50% in coordination of care (as documented) at patient's floor/unit and/or counseling patient: Coding Level of Care Code 12223 SUB INP/OBS CARE Diagnoses Acute and chronic respiratory failure with hypoxia J96.21 NSTEMI (non-ST elevated myocardial infarction) I21.4 HFrEF (heart failure with reduced ejection fraction) I50.20 Monoclonal B-cell lymphocytosis D72.820 Hypercholesterolemia E78.00 Presence of intrathecal pump Z96.89 Chronic intractable pain G89.29 Hypertension I10
[2023-02-14] MEDS: LORazepam 2 MG/1 ML VIAL IV SCH ×6 (00:56→16:06)
[2023-02-14] MEDS: GLYCOPYRROLATE 0.2 MG/ML VIAL IV PRN ×2 (02:03→10:47)
[2023-02-14] MEDS: AMIODARONE 200 MG TAB PO SCH (09:14)
[2023-02-14] MEDS: carvediloL 6.25 MG TAB PO SCH (09:14)
[2023-02-14] MEDS: HYDROmorphone/NSS 100 MG/100 ML BAG IV SCH (10:54)
--- NOTE | 2023-02-14 12:29 | Hospitalist Progress Note ---
Date of Service February 14, 2023 Assessment & Plan (1) Acute and chronic respiratory failure with hypoxia: Plan: Acute/unstable/high risk - - Initially admitted to pcu with plans to treat aggressively with IV abx and diuretics d/t concern for b/l PNA + CHF - It was ultimately decided to transition him to [facility] on 02/11 after family and pt d/w Palliative care - All medications for prior chronic medical illnesses have been discontinued, no further labs, etc. - Placed on dilaudid drip for air hunger/pain, also has PRN dilaudid as patient has had intermittent bouts of acute pain on 02/12 - family notes patient is much more comfortable today - continue [facility] meds including glycopyrrolate and lorazepam, appreciate assistance by palliative care team Plan Stop Coreg and Amiodarone given his obtunded and hypotensive state. Continue [facility], no changes made to regimen at this time as he appears to be resting comfortably. Family updated at bedside. Plan d/w Dr. Yoon. Admission and Anticipated Discharge Date Admission Date: February 11, 2023 Subjective Patient seen on daily rounds. He is currently on [facility]. Family is at bedside, feels that he appears much more comfortable on Dilaudid drip. Physical Exam Physical Exam: GENERAL: 87 yo elderly well-developed, well-nourished M. obtunded. NAD. LUNGS: Coarse rhonchi b/l with some exp wheezes noted on R CARDIOVASCULAR: Distant secondary to breath sounds, marginally tachycardic ABDOMEN: Soft, non-tender and non-distended. BS present but hypoactive. EXTREMITIES: No edema. Some subtle mottling of feet noted. Extrem remain warm. Results & Data Results & Data Vital Signs (Past 12 Hours) Vital Signs O2 Del Method O2 Flow Rate 02/14/23 08:10 Nasal Cannula 3 PG Care Time/CCT Total # of Minutes Spent Total Time Spent with Patient: Total time spent is greater than 50% in coordination of care (as documented) at patient's floor/unit and/or counseling patient: Coding Level of Care Code 79005 SUB INP/OBS CARE 2/35MIN Diagnoses Acute and chronic respiratory failure with hypoxia J96.21
--- NOTE | 2023-02-14 13:31 | Palliative Care Progress Note ---
Date of Service February 14, 2023 Assessment & Plan (1) Pain: Plan: Controlled currently. He does have IV hydromorphone infusion as well as active intrathecal pump. No signs of opioid toxicity (2) Anxiety: Plan: Controlled with scheduled dosing of lorazepam (3) Terminal respiratory secretions: Plan: Discussed with family. They are not distressed by this but have noticed some improvement with glycopyrrolate. Will continue regular dosing. Discussed with RN (4) Palliative care encounter: Plan: Talked with Mrs. Wiggins and her son at bedside. They feel that he is comfortable and that they are honoring his wishes. He has stated multiple times that he has not had good quality of life and was ready to . We discussed signs of decline over the last 24 hours with hypotension and hypoxia. He is likely to within the next couple days. Admission and Anticipated Discharge Date Admission Date: February 11, 2023 Subjective Does not respond to voice or touch. Facial grimace with repositioning per RN. He has not had prn dosing of hydromorphone. Family feels that he has been comfortable since hydromorphone infusion started. Review of Systems Review of Systems: Unobtainable due to reduced consciousness Physical Exam Constitutional: + ill appearing; no acute distress Respiratory: normal respiratory effort; no labored breathing no apnea audible tracheal secretions Cardiovascular: irregular no mottling Neurologic: no myoclonus Genitourinary: Issa catheter UOP 250cc last 24 hours Results & Data Vital Signs (Past 12 Hours) Vital Signs O2 Del Method O2 Flow Rate 02/14/23 08:10 Nasal Cannula 3 PG Care Time/CCT Total # of Minutes Spent Total Time Spent: 48 Total Time Spent with Patient: Total time spent is greater than 50% in coordination of care (as documented) at patient's floor/unit and/or counseling patient: [id number] Family education and support, prognosis, symptom management Coding Level of Care Code 71419 SUB INP/OBS CARE 3/50MIN Diagnoses Pain R52 Anxiety F41.9 Terminal respiratory secretions R09.89 Palliative care encounter Z51.5
[2023-02-14] MEDS ORDERED: GLYCOPYRROLATE 0.2 MG/ML VIAL IV SCH (15:00)
--- NOTE | 2023-02-14 18:02 | Discharge Summary ---
Date of Service February 14, 2023 Principal Diagnosis acute on chronic respiratory failure with hypoxia chronic heart failure with reduced ejection fraction comfort care measures Discharge Exam Pt pronounced at 1725 on 02/14/23 Discharge Data Allergies Allergy/AdvReac Type Severity Reaction Status Date / Time hydrochlorothiazide Allergy Severe Hives Verified 01/29/23 13:57 Iodinated Contrast Media Allergy Severe Convulsions Verified 01/29/23 13:57 adhesive Allergy Intermediate RASH;PULLS Verified 01/29/23 13:57 SKIN OFF levofloxacin Allergy Mild HIVES, Verified 01/29/23 13:57 PRURITIS NSAIDS (Non-Steroidal Allergy Mild Elevated BP Verified 01/29/23 13:57 Anti-Inflamma amiodarone Allergy Unknown RASH Verified 02/11/23 10:26 cephalexin Allergy Unknown AFTER 14 Verified 01/29/23 13:57 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 Glpsupy-HIG-KmF Reductase Allergy Unknown Unknown Verified 01/29/23 13:57 Inhibitor [Autuehf-Ckc-Pkv Reductase Inhibitor] terazosin [From Hytrin] Allergy Unknown Unknown Verified 01/29/23 13:57 doxycycline AdvReac Severe Severe Verified 01/29/23 13:57 stomach pain, headaches Cephalosporins AdvReac Intermediate nausea Verified 01/29/23 13:57 after repeated dose nifedipine AdvReac Intermediate Sick to Verified 01/29/23 13:57 stomach atorvastatin AdvReac Unknown MUSCLE Verified 01/29/23 13:57 ACHES ezetimibe AdvReac stomach Verified 01/29/23 13:57 upset, leg/back pain solifenacin AdvReac urinary Verified 01/29/23 13:57 retention Consultations 02/11/23 06:36 ED Decision to Admit Stat 02/11/23 08:56 Consult Pain Management Routine 02/11/23 09:01 Consult Palliative Care Routine Ordered Studies 02/11/23 02:34 CT abd pelvis wo con Stat CT chest diagnostic wo con Stat Hospital Course (1) Acute and chronic respiratory failure with hypoxia: Acute/unstable/high risk - - Initially admitted to pcu with plans to treat aggressively with IV abx and diuretics d/t concern for b/l PNA + CHF - It was ultimately decided to transition him to [employer] [employer] [facility] [facility] on 02/11 after family and pt d/w Palliative care - All medications for prior chronic medical illnesses have been discontinued, no further labs, etc. - Placed on dilaudid drip for air hunger/pain, also has PRN dilaudid as patient has had intermittent bouts of acute pain on 02/12 - family notes patient is much more comfortable PT at 1725 on 01/25/23 Plan Stop Coreg and Amiodarone given his obtunded and hypotensive state. Continue [employer], no changes made to regimen at this time as he appears to be resting comfortably. Family updated at bedside. Plan d/w Dr. Yoon. Total Time Total Time Spent Total Time Spent (In Minutes): greater than 30 minutes were required to create this discharge summary Discharge Plan Discharge Items Patient Disposition: Discharge Diagnosis: acute on chronic respiratory failure with hypoxia chronic heart failure with reduced ejection fraction comfort care measures Other Date/Time: 02/14/23 17:25 Coding Level of Care Code 97147 INP/OBS DISCH >30 MIN Diagnoses Acute and chronic respiratory failure with hypoxia J96.21
== END 2023-02-14 18:30 | DRG 189 ==
LOC: ED 01:27 → 1E 08:01 → SUATTDRO 08:01 → 1E 10:28 → 3E 18:47